=== PATIENT | female | born 1945 | race Caucasian/White ===

== ENCOUNTER → 2016-03-13 | Outpatient (CLI) | payer OTHER ==
[~2016-03-13] MED LIST: ALBUAER19 INH; BENA1TAB19 PO; BIOTCAP2 PO; CARB25TA12 PO; CHOL2000 PO; CLON0.5T PO; CRS10 PO; DICY20TA35 PO; ESCI1TAB10 PO; FRS/40 PO; INSDGIPEN SC; INSUINJ4 SQ; LAMO100T PO; LORA0.5T12 PO; MECL1TAB42 PO; MULT-513 PO; MULTTAB58 PO; NVLGI/PEN SC; POTA10TA PO; PRIM50TA29 PO; PRLSR20 PO; PRVHFAIN INH; ROSU20TA PO; SPRIN/30 INH; TIOTCAP INH; TOPI25TA55 PO; TRAM-453 PO
== END | disposition home or self-care (01) ==
LOC: C.LABPVFM 15:32
PROVIDERS: ATTEND Nurse Practitioner
DX: H93.233 Hyperacusis, bilateral (principal); R42 Dizziness and giddiness; R51 Headache

== ENCOUNTER → 2016-03-19 | Outpatient (CLI) | payer OTHER ==
--- NOTE | 2016-03-19 13:09 | DIAGNOSTIC IMAGING REPORT ---
ULTRASOUND OF THE CAROTID ARTERIES CLINICAL HISTORY: Hearing abnormality. Head pressure. COMPARISON STUDY: No priors. TECHNIQUE: Real-time, grayscale, and color Doppler sonography of the carotid arteries is performed. Images are reviewed in the transverse and longitudinal planes. FINDINGS: Blood pressure in the right arm measures 127/71 and blood pressure in the left arm measures 110/65. The carotid arteries are patent bilaterally and demonstrate antegrade flow. There is minimal echogenic shadowing atherosclerotic plaque seen bilaterally. Normal doppler arterial waveforms are seen throughout. Velocity measurements are listed below. Common carotid peak systolic velocity (cm/sec): RIGHT: 81 LEFT: 92 ICA proximal peak systolic velocity (cm/sec): RIGHT: 59 LEFT: 55 ICA mid peak systolic velocity (cm/sec): RIGHT: 90 LEFT: 95 ICA distal peak systolic velocity (cm/sec): RIGHT: 72 LEFT: 90 ICA/CC peak systolic ratio: RIGHT: 1.2 LEFT: 1.0 Antegrade flow was shown in the vertebral arteries. The external carotid arteries are patent. A 1.5 cm predominantly cystic nodule is incidentally noted in the left lobe of the thyroid gland. IMPRESSION: 1. There is no sonographic evidence of hemodynamically significant stenosis in the right or left carotid arterial system. 2. Antegrade flow is shown in the vertebral arteries. Electronically signed by: Julio C Rodriguez M.D. 03/19/2016 1:07 PM Dictated Date/Time: 03/19/2016 1:06 PM
--- NOTE | 2016-03-24 07:19 | CODING QUERY MEDICAL NECESSITY ---
SUPPORTING DIAGNOSIS NEEDED A supporting diagnosis is required for the test/procedure performed on this patient in order for us to be reimbursed by the patient's insurance. Please provide a supporting diagnosis for the following test/procedure listed below next to the test name along with your signature. *If there is no additional diagnosis for this patient that would support the following test/procedure please document that below next to the test/procedure. Test(s)/Procedure(s) that require a supporting diagnosis: DOS 03/19 * Carotid Doppler DIAGNOSIS: Provider Signature: Date: Thank you Francia [facility] Information Management Once completed, please kindly fax back to [phone] For questions please call [phone]
== END | disposition home or self-care (01) ==
LOC: C.ULTR 12:01
PROVIDERS: ATTEND Nurse Practitioner
DX: R42 Dizziness and giddiness (principal); H93.233 Hyperacusis, bilateral; R51 Headache; R25.1 Tremor, unspecified

== ENCOUNTER → 2016-07-16 | Outpatient (CLI) | payer OTHER ==
[~2016-07-16] MED LIST changes: -BENA1TAB19 PO; +BENA1TAB53 PO
[2016-07-16 17:59] LABS: BASO % 0.3 %; BASO ABS # 0.02 K/uL (0-0.2); COMPLETE YES; EOS % 3.7 %; HEMATOCRIT 42.7 % (37-47); IG% 0.1 %; LYMPH % 26.5 %; LYMPH ABS # 1.78 K/uL (1.2-3.4); MEAN CELL VOLUME 88.6 fL (80-100); MEAN CORPUSCULAR HEMOGLOBIN 29.5 pg (25-34); MEAN CORPUSCULAR HGB CONC 33.3 g/dl (32-36); MEAN PLATELET VOLUME 11.3 fL (7.4-10.4); MONO % 9.5 %; NEUT % 59.9 %; PLATELET COUNT 225 K/uL (130-400); RED BLOOD COUNT 4.82 M/uL (4.2-5.4); WHITE BLOOD COUNT 6.71 K/uL (4.8-10.8)
[2016-07-16 18:30] LABS: ALT/SGPT 41 U/L (12-78); AST/SGOT 28 U/L (15-37); BLOOD UREA NITROGEN 16 mg/dl (7-18); BUN/CREATININE RATIO 16.4 (10-20); CALCIUM 9.1 mg/dl (8.5-10.1); CARBON DIOXIDE 32 mmol/L (21-32); CHLORIDE 103 mmol/L (98-107); GLUCOSE 227 mg/dl (70-99); POTASSIUM 4.1 mmol/L (3.5-5.1); SODIUM 141 mmol/L (136-145)
[2016-07-16 18:41] LABS: ALB/GLOB RATIO 1.3 (0.9-2); ALKALINE PHOSPHATASE 97 U/L (45-117); CHOLESTEROL 217 mg/dl (0-200); CHOLESTEROL/HDL RATIO 4.7; HDL CHOLESTEROL 46 mg/dl; LDL CHOLESTEROL CALCULATED 140 mg/dl; TRIGLYCERIDES 154 mg/dl (0-150); VERY LOW DENSITY LIPOPROT CALC 31 mg/dl
[2016-07-17 06:40] LABS: ESTIMATED AVERAGE GLUCOSE 223 mg/dl; HA1C FLAG Normal (Normal)
== END | disposition home or self-care (01) ==
LOC: C.LABPVFM 11:15
PROVIDERS: ATTEND Nurse Practitioner
DX: H93.13 Tinnitus, bilateral (principal); R42 Dizziness and giddiness; R26.81 Unsteadiness on feet; E11.9 Type 2 diabetes mellitus without complications; E78.2 Mixed hyperlipidemia; E55.9 Vitamin D deficiency, unspecified

== ENCOUNTER 2016-08-18 17:02 | Emergency (ER) | payer OTHER ==
[~2016-08-18] VITALS: Ht 162.6 cm; Wt 79.2 kg
[~2016-08-18 17:02] MED LIST changes: -BENA1TAB53 PO; -CARB25TA12 PO; -CHOL2000 PO; -FRS/40 PO; -INSDGIPEN SC; -MECL1TAB42 PO; -MULTTAB58 PO; -NVLGI/PEN SC; -PRVHFAIN INH; -ROSU20TA PO; -SPRIN/30 INH
[2016-08-18 17:06] VITALS: TEMP 36.6
[2016-08-18 17:40] VITALS: O2SAT 96; Ht 162.6 cm; Wt 79.2 kg
[2016-08-18] MEDS ORDERED: MECLIZINE HCL 25 MG TAB PO STA (17:43)
[2016-08-18] MEDS ORDERED: SODIUM CHLORIDE 0.9% 500ML 500 ML IV STA (17:43)
--- NOTE | 2016-08-18 17:43 | EMERGENCY ROOM VISIT NOTE ---
History Report prepared by Marta: Livia Oliveira Under the Supervision of: Dr. Evaristo Wright M.D. First contact with patient: 17:15 Chief Complaint: DIZZY Stated Complaint: BUZZING, RINGING IN EARS History of Present Illness The patient is a 71 year old female who presents to the Emergency Room with complaints of persistent, progressively worsening dizziness over the past 2-3 weeks. The patient's family reports that the patient has a history of an essential tremor and had a deep brain stimulator placed five years ago. They note that the patient's tremors had improved for several years. The family reports that the patient's tremors have now worsened and she has noticed ringing in her ears. The patient describes her dizziness as a feeling of off balance, but not a room spinning sensation. The patient's family states that the patient has not had follow up for her stimulator in quite some time due to changes in providers. The family notes that the patient was supposed to have an appointment with Neurology today, but states that it was cancelled and rescheduled for September. They note that the patient has not taken any of her medications today. The patient denies any nausea, vomiting, or abdominal pain. Source of History: patient Onset: 2-3 weeks Position: other (global) Quality: other (dizziness) Timing: worsening (progressively), other (persistent) Associated Symptoms: No nausea, No vomiting, No abdominal pain Note: Associated Symptoms: worsened tremors, feeling off balance, ear ringing Review of Systems See HPI for pertinent positives & negatives. A total of 10 systems reviewed and were otherwise negative. Past Medical & Surgical Medical Problems: (1) COPD (chronic obstructive pulmonary disease) (2) Depression (3) Diabetes (4) GERD (gastroesophageal reflux disease) (5) Hypertension (6) IBS (irritable bowel syndrome) (7) Tremor Family History Diabetes mellitus FHx: cancer FHx: heart disease FHx: hypertension Social History Smoking Status: Former Smoker Smokeless Tobacco Use: No Alcohol Use: none Drug Use: none Marital Status: Housing Status: lives with family Occupation Status: retired Current/Historical Medications Scheduled Benazepril (Lotensin), 40 MG PO DAILY Biotin (Biotin 5000), 5,000 MCG PO BID Carbidopa/Levodopa (Sinemet 25MG/100MG), 1 TAB PO BID Cholecalciferol (Vitamin D3), 2,000 INTER.UNIT PO DAILY Furosemide (Lasix), 40 MG PO DAILY Insulin Aspart (Novolog Flexpen), 1 DOSE SC AC Insulin Glargine (Lantus Solostar), 55 UNITS SC QPM Multiple Vitamin (Multivitamin), 1 TAB PO DAILY Omeprazole (Prilosec), 20 MG PO BID Primidone (Mysoline), 50 MG PO TID Rosuvastatin Calcium (Crestor), 20 MG PO DAILY Tiotropium [place] (Spiriva Handihaler), 1 CAP INH DAILY Scheduled PRN Albuterol (Ventolin Hfa), 2 PUFFS INH Q4-6HRS PRN for SOB/Wheezing Dicyclomine Hcl (Bentyl), 20 MG PO Q6H PRN for Abdominal Pain Meclizine Hcl (Meclizine Hcl), 25 MG PO QID PRN for Dizziness or Vertigo Allergies Coded Allergies: Levetiracetam (Verified Allergy, Intermediate, Rash, 08/18/16) Naproxen (Verified Allergy, Mild, RASH, 07/06/13) Penicillins (Verified Allergy, Unknown, HAD CEPHALEXIN BEFORE AND OK, PCN= FACIAL SWELLING, 07/06/13) Sulfa Drugs (Verified Adverse Reaction, Intermediate, N/V, 07/06/13) Uncoded Allergies: MORPHINE DERIVATIVES (Allergy, Unknown, Unknown, 08/18/16) Physical Exam Vital Signs Date Time Temp Pulse Resp B/P (MAP) Pulse Ox O2 Delivery O2 Flow Rate FiO2 08/18/16 19:53 70 20 151/67 98 Room Air 08/18/16 18:59 74 20 159/76 98 Room Air 08/18/16 17:57 72 18 130/107 96 Room Air 08/18/16 17:40 96 Room Air 08/18/16 17:06 36.6 100 18 151/79 94 Room Air Physical Exam GENERAL: Patient is a healthy-appearing well-nourished female HEAD: Normocephalic atraumatic EYES: Ocular movements intact pupils equal and react to light OROPHARYNX mucous membranes are moist no exudates present no erythema or edema present NECK: Supple no nuchal rigidity CHEST: Good equal expansion LUNGS: Clear and equal to auscultation CARDIAC: Normal S1 and S2 ABDOMEN: Soft nontender no guarding BACK: No CVA tenderness EXTREMITIES: No pain upon palpation normal muscle strength in all groups no clubbing cyanosis or edema NEURO: Patient is following commands and answering questions appropriately. Alert and oriented x3 Cranial Nerves 2-12 grossly intact Medical Decision & Procedures ER Provider Diagnostic Interpretation: Radiology results as stated below per my review and radiologist interpretation: HEAD CT NONCONTRAST CT DOSE: 537.48 mGy.cm HISTORY: Mental status change Pt c/o dizziness TECHNIQUE: Multiaxial CT images of the head were performed without the use of intravenous contrast. Comparison: 06/13/2007 Findings: The paranasal sinuses and mastoid air cells are clear. Interval placement of bilateral periventricular electrodes. Density characteristics of the brain are unremarkable. No evidence for acute intracranial hemorrhage. Impression: Chronic and postoperative change. No acute process. Electronically signed by: Greg Ariza M.D. 08/18/2016 6:09 PM Dictated Date/Time: 08/18/2016 6:08 PM CHEST ONE VIEW PORTABLE CLINICAL HISTORY: Pt c/o weakness/ dizziness dyspnea COMPARISON STUDY: June 2012 FINDINGS: Bilateral bile stimulator's. Lungs are clear. Diaphragms are smooth. IMPRESSION: No acute process Electronically signed by: Greg Ariza M.D. 08/18/2016 6:20 PM Dictated Date/Time: 08/18/2016 6:20 PM Laboratory Results 08/18/16 17:40 Red Blood Count 5.03, Mean Corpuscular Volume 85.1, Mean Corpuscular Hemoglobin 28.6, Mean Corpuscular Hemoglobin Concent 33.6, Mean Platelet Volume 10.9, Neutrophils (%) (Auto) 63.3, Lymphocytes (%) (Auto) 25.4, Monocytes (%) (Auto) 8.0, Eosinophils (%) (Auto) 2.9, Basophils (%) (Auto) 0.2, Neutrophils # (Auto) 5.15, Lymphocytes # (Auto) 2.07, Monocytes # (Auto) 0.65, Eosinophils # (Auto) 0.24, Basophils # (Auto) 0.02 08/18/16 17:40 Test 08/18/16 17:40 08/18/16 17:45 08/18/16 19:44 White Blood Count 8.15 K/uL (4.8-10.8) Red Blood Count 5.03 M/uL (4.2-5.4) Hemoglobin 14.4 g/dL (12.0-16.0) Hematocrit 42.8 % (37-47) Mean Corpuscular Volume 85.1 fL (80-100) Mean Corpuscular Hemoglobin 28.6 pg (25-34) Mean Corpuscular Hemoglobin Concent 33.6 g/dl (32-36) Platelet Count 213 K/uL (130-400) Mean Platelet Volume 10.9 fL (7.4-10.4) Neutrophils (%) (Auto) 63.3 % Lymphocytes (%) (Auto) 25.4 % Monocytes (%) (Auto) 8.0 % Eosinophils (%) (Auto) 2.9 % Basophils (%) (Auto) 0.2 % Neutrophils # (Auto) 5.15 K/uL (1.4-6.5) Lymphocytes # (Auto) 2.07 K/uL (1.2-3.4) Monocytes # (Auto) 0.65 K/uL (0.11-0.59) Eosinophils # (Auto) 0.24 K/uL (0-0.5) Basophils # (Auto) 0.02 K/uL (0-0.2) RDW Standard Deviation 39.2 fL (36.4-46.3) RDW Coefficient of Variation 12.6 % (11.5-14.5) Immature Granulocyte % (Auto) 0.2 % Immature Granulocyte # (Auto) 0.02 K/uL (0.00-0.02) Anion Gap 9.0 mmol/L (3-11) Est Creatinine Clear Calc Drug Dose 46.4 ml/min Estimated GFR () 57.7 Estimated GFR (Non- 49.8 BUN/Creatinine Ratio 20.5 (10-20) Calcium Level 9.4 mg/dl (8.5-10.1) Total Bilirubin 0.3 mg/dl (0.2-1) Direct Bilirubin < 0.1 mg/dl (0-0.2) Aspartate Amino Transf (AST/SGOT) 32 U/L (15-37) Alanine Aminotransferase (ALT/SGPT) 37 U/L (12-78) Alkaline Phosphatase 104 U/L (45-117) Total Creatine Kinase 106 U/L (26-192) Creatine Kinase MB 1.1 ng/ml (0.5-3.6) Creatine Kinase MB Ratio 1.0 (0-3.0) Troponin I < 0.015 ng/ml (0-0.045) Total Protein 7.3 gm/dl (6.4-8.2) Albumin 4.0 gm/dl (3.4-5.0) Beta-Hydroxybutyric Acid 1.67 mg/dL (0.2-2.81) Thyroid Stimulating Hormone (TSH) 1.380 uIu/ml (0.300-4.500) Urine Color YELLOW Urine Appearance CLEAR (CLEAR) Urine pH 5.5 (4.5-7.5) Urine Specific [place] <= 1.005 (1.000-1.030) Urine Protein NEG (NEG) Urine Glucose (UA) 3+ (NEG) Urine Ketones NEG (NEG) Urine Occult Blood NEG (NEG) Urine Nitrite NEG (NEG) Urine Bilirubin NEG (NEG) Urine Urobilinogen NEG (NEG) Urine Leukocyte Esterase NEG (NEG) Urine RBC 0-4 /hpf (0-4) Urine WBC 1-5 /hpf (0-5) Urine Epithelial Cells 5-10 /lpf (0-5) Urine Bacteria NEG (NEG) Bedside Glucose 309 mg/dl (70-90) Labs reviewed by ED physician. Medications Administered Medications (Trade) Dose Ordered Sig/Alicia Route Start Time Stop Time Status Last Admin Dose Admin Sodium Chloride 500 ml @ 999 mls/hr Q31M STAT IV 08/18/16 17:43 08/18/16 18:13 DC 08/18/16 18:52 999 MLS/HR Meclizine HCl (Antivert Tab) 25 mg NOW STAT PO 08/18/16 17:43 08/18/16 17:46 DC 08/18/16 18:51 25 MG Insulin Human Regular (novoLIN-R U-100 PER UNIT) 10 units NOW STAT SC 08/18/16 18:32 08/18/16 18:33 DC 08/18/16 18:32 10 UNITS Potassium Chloride (Klor-Con M10) 60 meq NOW STAT PO 08/18/16 18:35 08/18/16 18:36 DC 08/18/16 18:51 60 MEQ ED Course 1716: Past medical records reviewed. The patient was evaluated in room C12B. A complete history and physical examination was performed by the medical student. 1733: Past medical records reviewed. The patient was evaluated in room C12B. A complete history and physical examination was performed. 174: Ordered Antivert Tab 25 mg PO, Sodium Chloride 500 ml @ 999 mls/hr IV. 1831: Ordered Insulin Human Regular 10 units SC 1834: Ordered Potassium Chloride 60 meq PO. 1853: The medical student reevaluated the patient and she is resting comfortably. He discussed the exam findings with the patient and her family and he discussed the treatment plan. They verbalized complete understanding. The patient will be discharged. 1899: I reevaluated the patient and she is doing well. She verbalized understanding and agreement. She will be discharged shortly. 1906: I discussed the patients case with [facility]. They will contact her in the next 1-2 days to get set up for follow up. 1909: I discussed the plan with the patient and her family and they verbalized complete understanding and agreement. The patient is ready to go home. Medical Decision Differential diagnosis: Etiologies such as metabolic, infection, hypo/hyperglycemia, electrolyte abnormalities, cardiac sources, intracerebral event, toxicologic, neurologic, as well as others were entertained. Medication Reconciliation: I attest that I have personally reviewed the patient' s current medication list Blood Pressure Screening: Patient was found to have an elevated blood pressure and was referred to their primary care doctor for recheck and further treatment This is a 71-year-old female who presents emergency department for analysis of her neural stimulator. The patient had an appointment for this however due to a miscommunication the appointment was canceled. She has a normal CBC normal CAT scan of the head a normal chest x-ray. I did discuss the case with [facility] neurologist master control supervisor to get the the patient an appointment with a neurologist to have her stimulator evaluated. Patient family were in agreement with the treatment plan. Consults Time Called: 1899 Consulting Physician: [facility] Returned Call: 1906 I discussed the patients case with [facility]. They will contact her in the next 1-2 days to get set up for follow up. Impression Primary Impression: Hyperglycemia Scribe Attestation The scribe's documentation has been prepared under my direction and personally reviewed by me in its entirety. I confirm that the note above accurately reflects all work, treatment, procedures, and medical decision making performed by me. Departure Information Dispostion Home / Self-Care Referrals Remedios Medrano C.R.N.P (PCP) Forms HOME CARE DOCUMENTATION FORM, IMPORTANT VISIT INFORMATION, School Instructions, Work Instructions Patient Instructions ED Hyperglycemia Diabetic, Hypertension Dc, My [facility] Additional Instructions Follow up with [facility] You were found to have an elevated blood pressure today (>120 sytolic or >90 diastolic). Per medicare guidelines, you need to follow up with this blood pressure screening with your Primary Care Physician (PCP). For a new PCP call [phone]. You have been examined and treated today on an emergency basis only. This is not a substitute for, or an effort to provide, complete comprehensive medical care. It is impossible to recognize and treat all injuries or illnesses in a single emergency department visit. It is therefore important that you follow up closely with Dr Medrano. Call as soon as possible for an appointment. Thank you for your time and consideration. I look forward to speaking with you again soon. Please don't hesitate to call us if you have any questions.
[2016-08-18 18:02] LABS: BASO % 0.2 %; BASO ABS # 0.02 K/uL (0-0.2); COMPLETE YES; EOS % 2.9 %; HEMATOCRIT 42.8 % (37-47); IG% 0.2 %; LYMPH % 25.4 %; LYMPH ABS # 2.07 K/uL (1.2-3.4); MEAN CELL VOLUME 85.1 fL (80-100); MEAN CORPUSCULAR HEMOGLOBIN 28.6 pg (25-34); MEAN CORPUSCULAR HGB CONC 33.6 g/dl (32-36); MEAN PLATELET VOLUME 10.9 fL (7.4-10.4); NEUT % 63.3 %; PLATELET COUNT 213 K/uL (130-400); RED BLOOD COUNT 5.03 M/uL (4.2-5.4); WHITE BLOOD COUNT 8.15 K/uL (4.8-10.8)
[2016-08-18] MEDS ORDERED: MECL1TAB42 PO (18:05)
[2016-08-18] MEDS ORDERED: ROSU20TA PO (18:05)
[2016-08-18] MEDS ORDERED: NVLGI/PEN SC (18:05)
[2016-08-18] MEDS ORDERED: INSDGIPEN SC (18:05)
--- NOTE | 2016-08-18 18:11 | DIAGNOSTIC IMAGING REPORT ---
HEAD CT NONCONTRAST CT DOSE: 537.48 mGy.cm HISTORY: Mental status change Pt c/o dizziness TECHNIQUE: Multiaxial CT images of the head were performed without the use of intravenous contrast. Comparison: 06/13/2007 Findings: The paranasal sinuses and mastoid air cells are clear. Interval placement of bilateral periventricular electrodes. Density characteristics of the brain are unremarkable. No evidence for acute intracranial hemorrhage. Impression: Chronic and postoperative change. No acute process. Electronically signed by: Greg Ariza M.D. 08/18/2016 6:09 PM Dictated Date/Time: 08/18/2016 6:08 PM
[2016-08-18] MEDS ORDERED: CHOL2000 PO (18:13)
[2016-08-18] MEDS ORDERED: PRVHFAIN INH (18:13)
[2016-08-18] MEDS ORDERED: CARB25TA12 PO (18:13)
[2016-08-18] MEDS ORDERED: DICY20TA35 PO (18:17)
[2016-08-18] MEDS ORDERED: MULTTAB58 PO (18:17)
[2016-08-18] MEDS ORDERED: SPRIN/30 INH (18:19)
[2016-08-18 18:20] LABS: ALT/SGPT 37 U/L (12-78); BLOOD UREA NITROGEN 23 mg/dl (7-18); BUN/CREATININE RATIO 20.5 (10-20); CALCIUM 9.4 mg/dl (8.5-10.1); CARBON DIOXIDE 27 mmol/L (21-32); CHLORIDE 102 mmol/L (98-107); GLUCOSE 346 mg/dl (70-99); POTASSIUM 3.4 mmol/L (3.5-5.1); SODIUM 138 mmol/L (136-145)
--- NOTE | 2016-08-18 18:21 | DIAGNOSTIC IMAGING REPORT ---
CHEST ONE VIEW PORTABLE CLINICAL HISTORY: Pt c/o weakness/ dizziness dyspnea COMPARISON STUDY: June 2012 FINDINGS: Bilateral bile stimulator's. Lungs are clear. Diaphragms are smooth. IMPRESSION: No acute process Electronically signed by: Greg Ariza M.D. 08/18/2016 6:20 PM Dictated Date/Time: 08/18/2016 6:20 PM
[2016-08-18 18:23] LABS: AST/SGOT 32 U/L (15-37)
[2016-08-18 18:31] LABS: ALKALINE PHOSPHATASE 104 U/L (45-117); BETA-HYDROXYBUTYRATE 1.67 mg/dL (0.2-2.81)
[2016-08-18] MEDS ORDERED: NovoLIN-R INSULIN PER UNIT CHARGE SC STA (18:32)
[2016-08-18] MEDS ORDERED: POTASSIUM CHLORIDE 10 MEQ TABCR PO STA (18:35)
[2016-08-18 18:59] LABS: URINE APPEARANCE CLEAR (CLEAR); URINE BILIRUBIN NEG (NEG); URINE COLOR YELLOW; URINE NITRITE NEG (NEG); URINE PH 5.5 (4.5-7.5); URINE SPECIFIC GRAVITY <= 1.005 (1.000-1.030); UROBILINOGEN NEG (NEG)
[2016-08-18 19:03] LABS: REVIEW REQ? NO
[2016-08-18 19:22] LABS: MANUAL MICROSCOPIC REQUIRED? YES
[2016-08-18 19:29] LABS: URINE BACTERIA NEG (NEG); URINE RBC 0-4 /hpf (0-4)
[2016-08-18 19:53] VITALS: BP 151/67; PULSE 70; O2SAT 98
[2016-08-18] MEDS ORDERED: BENA1TAB53 PO (22:44)
[2016-08-18] MEDS ORDERED: FRS/40 PO (22:44)
== END 2016-08-18 19:55 | disposition home or self-care (01) ==
LOC: C.EDB 17:03 → C.EDC 19:55
DX: E11.65 Type 2 diabetes mellitus with hyperglycemia (principal); J44.9 Chronic obstructive pulmonary disease, unspecified; I10 Essential (primary) hypertension; K21.9 Gastro-esophageal reflux disease without esophagitis; Z87.891 Personal history of nicotine dependence; Z83.3 Family history of diabetes mellitus; Z82.49 Family history of ischemic heart disease and other diseases of the circulatory system; Z79.4 Long term (current) use of insulin; Z79.899 Other long term (current) drug therapy

== ENCOUNTER → 2016-12-23 | Outpatient (CLI) | payer OTHER ==
[~2016-12-23] MED LIST changes: -ALBUAER19 INH; +BENA1TAB53 PO; +CARB25TA12 PO; +CHOL2000 PO; -CLON0.5T PO; -CRS10 PO; -ESCI1TAB10 PO; +FRS/40 PO; +INSDGIPEN SC; -INSUINJ4 SQ; -LAMO100T PO; -LORA0.5T12 PO; +MECL1TAB42 PO; -MULT-513 PO; +MULTTAB58 PO; +NVLGI/PEN SC; -POTA10TA PO; +PRVHFAIN INH; +ROSU20TA PO; +SPRIN/30 INH; -TIOTCAP INH; -TOPI25TA55 PO; -TRAM-453 PO
[2016-12-26 00:19] LABS: METHYLMALONIC ACID 139 NMOL/L (87-318)
== END | disposition home or self-care (01) ==
LOC: C.LABPVFM 11:35
PROVIDERS: ATTEND Psychiatry & Neurology Neurology
DX: R29.2 Abnormal reflex (principal)

== ENCOUNTER → 2017-01-21 | Outpatient (CLI) | payer OTHER ==
[2017-01-21 18:06] LABS: BLOOD UREA NITROGEN 17 mg/dl (7-18); BUN/CREATININE RATIO 17.1 (10-20); CALCIUM 9.6 mg/dl (8.5-10.1); CARBON DIOXIDE 31 mmol/L (21-32); CHLORIDE 99 mmol/L (98-107); CHOLESTEROL 138 mg/dl (0-200); CREATININE 0.97 mg/dl (0.60-1.20); GLUCOSE 218 mg/dl (70-99); POTASSIUM 3.8 mmol/L (3.5-5.1); SODIUM 137 mmol/L (136-145); TRIGLYCERIDES 112 mg/dl (0-150); VERY LOW DENSITY LIPOPROT CALC 22 mg/dl
[2017-01-21 18:11] LABS: CHOLESTEROL/HDL RATIO 2.2; HDL CHOLESTEROL 64 mg/dl; LDL CHOLESTEROL CALCULATED 52 mg/dl
[2017-01-22 06:18] LABS: ESTIMATED AVERAGE GLUCOSE 143 mg/dl; HA1C FLAG Normal (Normal)
== END | disposition home or self-care (01) ==
LOC: C.LABPVFM 14:50
PROVIDERS: ATTEND Nurse Practitioner
DX: E78.2 Mixed hyperlipidemia (principal); E11.9 Type 2 diabetes mellitus without complications

== ENCOUNTER → 2017-05-14 | Outpatient (CLI) | payer OTHER ==
[2017-05-14 17:56] LABS: BLOOD UREA NITROGEN 16 mg/dl (7-18); CALCIUM 9.3 mg/dl (8.5-10.1); CARBON DIOXIDE 29 mmol/L (21-32); CREATININE 0.94 mg/dl (0.60-1.20); GLUCOSE 181 mg/dl (70-99); SODIUM 140 mmol/L (136-145)
[2017-05-15 08:02] LABS: HEMOGLOBIN A1C 6.4 % (4.5-5.6)
== END | disposition home or self-care (01) ==
LOC: C.LABPVFM 15:02
PROVIDERS: ATTEND Nurse Practitioner
DX: Z11.59 Encounter for screening for other viral diseases (principal); E11.9 Type 2 diabetes mellitus without complications

== ENCOUNTER → 2017-06-25 | Outpatient (CLI) | payer OTHER | END | disposition home or self-care (01) | LOC: C.LABPVFM 17:18 | PROVIDERS: ATTEND Nurse Practitioner | DX: R39.9 Unspecified symptoms and signs involving the genitourinary system (principal) ==

== ENCOUNTER 2020-08-10 17:20 | Inpatient (IN) ==
[2020-08-10] MEDS ORDERED: SODIUM CHLORIDE 0.9% 1000ML 1,000 ML IV ONE (17:34)
--- NOTE | 2020-08-10 17:41 | Emergency Department Note ---
History of Present Illness General Chief complaint: Syncope (Near Syncope) Time Seen by Provider: 08/10/20 17:25 Source: patient Mode of arrival: EMS Limitations: no limitations History of Present Illness This patient is a 75-year-old female who comes in after a near syncopal episode. She was bit by a cat 3 to 4 days ago and started on metronidazole and doxycycline given that she has multiple antibiotic allergies. She developed diarrhea has had a large amount of watery diarrhea. No blood or melena no nausea or vomiting. She had a near syncopal episode when she stood up today she did not fall or hurt herself or actually pass out also when they called the ambulance she was very lightheaded when she stood up. She says her symptoms are positional. She denies any abdominal pain. No chest pain or shortness of breath. She did have the Covid vaccine. She has had no cough. No trauma or injury. No focal numbness or weakness. The cat bite has been healing well in the left arm and not been red or warm she said no systemic complaints or fever. The cat is up-to-date on its vaccines Home Medications Medication Instructions Recorded Confirmed Type biotin 5,000 mcg SUBLINGUAL QAM 07/13/18 08/10/20 History potassium 99 mg PO BID 07/13/18 08/10/20 History cholecalciferol (vitamin D3) 50 2,000 unit PO QAM tab 09/08/18 08/10/20 History mcg (2,000 unit) tablet cyanocobalamin (vitamin B-12) 1,000 mcg PO QAM tab 09/08/18 08/10/20 History 1,000 mcg tablet lancets 33 gauge #100 ea 09/08/18 08/06/20 History multivitamin 1 tab PO QAM tab 09/08/18 08/10/20 History carbidopa 25 mg-levodopa 100 mg 3 tab PO BID tab 09/15/18 08/10/20 History tablet bepotastine besilate 1.5 % eye 1 drops OPB BID 02/23/19 08/10/20 History drops pen needle, diabetic 32 gauge x #200 ea 01/23/20 08/06/20 Rx 5/32" blood sugar diagnostic #100 ea 02/06/20 08/06/20 Rx cranberry 500 mg capsule 500 mg PO BID #60 cap 02/07/20 08/10/20 Rx benazepril 40 mg tablet 40 mg PO QAM #90 tab 02/26/20 08/10/20 Rx insulin glargine 100 unit/mL (3 30 unit SUBCUT BID #15 ml 04/11/20 08/10/20 Rx mL) subcutaneous pen dicyclomine 20 mg tablet 20 mg PO BID #180 tab 07/15/20 08/10/20 Rx doxycycline hyclate 100 mg PO BID 10 Days #20 tab 08/04/20 08/10/20 Rx escitalopram oxalate 10 mg PO QAM 08/04/20 08/10/20 History fluticasone propionate 1 sprays INTRANASAL BID 08/04/20 08/10/20 History furosemide 40 mg PO QAM 08/04/20 08/10/20 History metronidazole [Flagyl] 500 mg PO TID #30 tab 08/04/20 08/10/20 Rx primidone See Rx Instructions .ROUTE .COMPLEX 08/04/20 08/10/20 History rosuvastatin 20 mg PO QPM 08/04/20 08/10/20 History omeprazole 20 mg capsule,delayed 20 mg PO BID #180 cap 08/05/20 08/10/20 Rx release Allergies Allergy/AdvReac Type Severity Reaction Status Date / Time levetiracetam Allergy Intermediate Rash Verified 08/06/20 15:28 adhesive tape Allergy Mild Rash Verified 08/06/20 15:28 naproxen Allergy Mild RASH Verified 08/06/20 15:28 ampicillin Allergy Unknown Unknown Verified 08/06/20 15:28 morphine Allergy Unknown Unknown Verified 08/06/20 15:28 Penicillins Allergy Unknown HAD Verified 08/06/20 15:28 CEPHALEXIN BEFORE AND OK, PCN=FACIAL SWELLING Sulfa (Sulfonamide AdvReac Intermediate N/V Verified 08/06/20 15:28 Antibiotics) Past Med/Surg History Medical History Sensorineural hearing loss (SNHL) of both ears Tubular adenoma of colon Urinary symptom or sign Surgical History S/P cholecystectomy S/P deep brain stimulator placement (08/20/16) S/P sinus surgery Status post tubal ligation Family History Father Cancer Mother Depression Hypertension Stroke Grandmother Breast cancer Mother Myocardial infarction Denies family history of Ovarian cancer Prostate cancer Colorectal cancer Social History Smoking Status: Never smoker Hx Alcohol Use: No Hx Substance Use: No marital status: / Current Living Situation: Alone current occupational status: retired Feels Safe at Home: Yes caffeine: Yes Dental Care, Regularly: No Physical Activity Frequency: Does not Exercise Seatbelt Use: always Sunscreen Use: No Review of Systems A total of 10 systems reviewed and were otherwise negative Physical Exam Vital Signs Vital Signs - 24 hr 08/10/20 17:32 08/10/20 17:34 08/10/20 17:38 Temperature 36.7 C Temperature Source Oral Pulse Rate - Lying Pulse Rate - Sitting Pulse Rate - Standing Pulse Rate 63 62 62 Pulse Rate from SpO2 Sensor 64 62 Pulse Rhythm Regular Pulse Strength Normal Respiratory Rate 21 20 18 Respiratory Effort / Characteristics Non-Labored Spontaneous Respiratory Depth Normal Respiratory Pattern Regular Blood Pressure - Lying Blood Pressure - Sitting Blood Pressure- Standing Blood Pressure 128/67 128/67 Blood Pressure Mean 87 87 Blood Pressure Position Sitting Pulse Oximetry 98 98 98 Oxygen Delivery Method Room Air Sepsis Recent Fever Within 48 Hours No Sepsis New/Unexplained Change in Mental Status No Sepsis Action Taken by Nursing No Action Required 08/10/20 18:00 08/10/20 18:30 08/10/20 19:00 Temperature Temperature Source Pulse Rate - Lying Pulse Rate - Sitting Pulse Rate - Standing Pulse Rate 60 61 58 L Pulse Rate from SpO2 Sensor 61 61 Pulse Rhythm Pulse Strength Respiratory Rate 20 17 18 Respiratory Effort / Characteristics Non-Labored Spontaneous Respiratory Depth Respiratory Pattern Blood Pressure - Lying Blood Pressure - Sitting Blood Pressure- Standing Blood Pressure 116/60 132/60 Blood Pressure Mean 78 84 Blood Pressure Position Pulse Oximetry 97 98 Oxygen Delivery Method Room Air Sepsis Recent Fever Within 48 Hours Sepsis New/Unexplained Change in Mental Status Sepsis Action Taken by Nursing 08/10/20 19:01 08/10/20 19:30 08/10/20 19:31 Temperature Temperature Source Pulse Rate - Lying Pulse Rate - Sitting Pulse Rate - Standing Pulse Rate 58 L 58 L 59 L Pulse Rate from SpO2 Sensor Pulse Rhythm Pulse Strength Respiratory Rate 19 15 16 Respiratory Effort / Characteristics Respiratory Depth Respiratory Pattern Blood Pressure - Lying Blood Pressure - Sitting Blood Pressure- Standing Blood Pressure 109/56 L Blood Pressure Mean 73 Blood Pressure Position Pulse Oximetry Oxygen Delivery Method Sepsis Recent Fever Within 48 Hours Sepsis New/Unexplained Change in Mental Status Sepsis Action Taken by Nursing 08/10/20 20:00 08/10/20 20:07 08/10/20 20:09 Temperature Temperature Source Pulse Rate - Lying Pulse Rate - Sitting Pulse Rate - Standing Pulse Rate 65 66 69 Pulse Rate from SpO2 Sensor Pulse Rhythm Pulse Strength Respiratory Rate 16 18 18 Respiratory Effort / Characteristics Respiratory Depth Respiratory Pattern Blood Pressure - Lying Blood Pressure - Sitting Blood Pressure- Standing Blood Pressure 127/71 129/62 132/64 Blood Pressure Mean 89 84 86 Blood Pressure Position Pulse Oximetry Oxygen Delivery Method Sepsis Recent Fever Within 48 Hours Sepsis New/Unexplained Change in Mental Status Sepsis Action Taken by Nursing 08/10/20 20:10 08/10/20 20:15 08/10/20 20:30 Temperature Temperature Source Pulse Rate - Lying 62 Pulse Rate - Sitting 64 Pulse Rate - Standing 67 Pulse Rate 65 64 Pulse Rate from SpO2 Sensor Pulse Rhythm Pulse Strength Respiratory Rate 16 17 Respiratory Effort / Characteristics Respiratory Depth Respiratory Pattern Blood Pressure - Lying 129/62 Blood Pressure - Sitting 132/64 Blood Pressure- Standing 127/95 Blood Pressure 127/95 120/62 Blood Pressure Mean 105 81 Blood Pressure Position Pulse Oximetry Oxygen Delivery Method Sepsis Recent Fever Within 48 Hours Sepsis New/Unexplained Change in Mental Status Sepsis Action Taken by Nursing 08/10/20 20:31 08/10/20 21:00 08/10/20 21:01 Temperature Temperature Source Pulse Rate - Lying Pulse Rate - Sitting Pulse Rate - Standing Pulse Rate 63 63 65 Pulse Rate from SpO2 Sensor Pulse Rhythm Pulse Strength Respiratory Rate 17 14 15 Respiratory Effort / Characteristics Respiratory Depth Respiratory Pattern Blood Pressure - Lying Blood Pressure - Sitting Blood Pressure- Standing Blood Pressure 123/55 L Blood Pressure Mean 77 Blood Pressure Position Pulse Oximetry Oxygen Delivery Method Sepsis Recent Fever Within 48 Hours Sepsis New/Unexplained Change in Mental Status Sepsis Action Taken by Nursing 08/10/20 21:38 08/10/20 22:00 08/10/20 22:01 Temperature Temperature Source Pulse Rate - Lying Pulse Rate - Sitting Pulse Rate - Standing Pulse Rate 64 60 63 Pulse Rate from SpO2 Sensor Pulse Rhythm Pulse Strength Respiratory Rate 19 16 20 Respiratory Effort / Characteristics Respiratory Depth Respiratory Pattern Blood Pressure - Lying Blood Pressure - Sitting Blood Pressure- Standing Blood Pressure 152/79 H 127/66 Blood Pressure Mean 103 86 Blood Pressure Position Pulse Oximetry Oxygen Delivery Method Sepsis Recent Fever Within 48 Hours Sepsis New/Unexplained Change in Mental Status Sepsis Action Taken by Nursing General: Well developed well nourished older female who appears in no acute distress, breathing comfortably on room air. Normal speech HEENT: Normal cephalic atraumatic. Pupils are equal round and reactive to light. Extraocular movements are intact. Oropharynx is pink with moist mucous membranes. No swelling of the mouth lips or tongue. Neck: Supple with a midline trachea. No meningeal signs or stiffness, no JVD or bruits. No Stridor. Chest: Clear to auscultation bilaterally. No wheezes or rhonchi. No increased work of breathing. Heart: Regular rate and rhythm without murmurs or gallops. Abdomen: Soft nontender, nondistended without rebound guarding or rigidity. Extremities: No cyanosis clubbing or edema. No calf tenderness or assymetry. Healing cat bite without redness or warmth in left arm. No evidence of infection Spine/Back. Non tender to palpation. No CVA tenderness Skin: Good turgor without rashes. Neurologic exam: Cranial nerves two through 12 are intact. Motor and sensation are intact and symmetrical throughout. Course Administered Medications Discontinued Medications Sodium Chloride (Nss 1000ml) 1,000 mls @ 999 mls/hr IV .Q1H1M ONE Stop: 08/10/20 18:34 Last Infusion: 08/10/20 20:04 Dose: 0 mls/hr Documented by: [id number] Admin: 08/10/20 19:03 Dose: 999 mls/hr Documented by: [id number] Sodium Chloride (Nss 1000ml) 500 mls @ 999 mls/hr IV .Q31M ONE Stop: 08/10/20 22:17 Last Admin: 08/10/20 22:04 Dose: 999 mls/hr Documented by: [id number] Medical Decision Making Differential Diagnosis Syncope, near syncope, dehydration, C. difficile, medication side effect, sepsis, cat bite, Covid Medical Records Attestation: I reviewed the patient's medical records. Home Medications Current Medication List: was personally reviewed by me Laboratory Data Attestation: I reviewed the patient's lab results. Result diagrams: 08/10/20 18:44 08/10/20 18:44 Lab Results 08/10/20 08/10/20 08/10/20 Range/Units 18:40 18:44 18:44 WBC 7.89 (4.8-10.8) K/uL RBC 4.22 (4.2-5.4) M/uL Hgb 13.1 (12.0-16.0) g/dL Hct 38.7 (37-47) % MCV 91.7 (80-100) fL MCH 31.0 (25-34) pg MCHC 33.9 (32-36) g/dL RDW Std Deviation 43.3 (36.4-46.3) fL RDW Coeff of Sunitha 13.0 (11.5-14.5) % Plt Count 201 (130-400) K/uL MPV 10.6 H (7.4-10.4) fL Immature Gran % (Auto) 0.1 % Neut % (Auto) 54.6 % Lymph % (Auto) 31.9 % Posey % (Auto) 10.8 % Eos % (Auto) 2.3 % Baso % (Auto) 0.3 % Neut # (Auto) 4.31 (1.4-6.5) K/uL Lymph # (Auto) 2.52 (1.2-3.4) K/uL Posey # (Auto) 0.85 H (0.11-0.59) K/uL Eos # (Auto) 0.18 (0-0.5) K/uL Baso # (Auto) 0.02 (0-0.2) K/uL Immature Gran # (Auto) 0.01 (0.00-0.02) K/uL PT 10.9 (9.0-12.0) Seconds INR 1.1 (0.9-1.1) APTT 25.6 (21.0-31.0) Seconds PTT Ratio 1.0 Sodium (136-145) mmol/L Potassium (3.5-5.1) mmol/L Chloride (98-107) mmol/L Carbon Dioxide (21-32) mmol/L Anion Gap (3-11) BUN (7-18) mg/dl Creatinine (0.6-1.2) mg/dl Est Cr Clr Drug Dosing Est GFR ( Amer) ml/min Est GFR (Non-Af Amer) ml/min BUN/Creatinine Ratio (10-20) Glucose (70-99) mg/dl Lactate (0.4-2.0) mmol/L Calcium (8.5-10.1) mg/dl Magnesium (1.8-2.4) mg/dl Total Bilirubin (0.2-1) mg/dl AST (15-37) U/L ALT (12-78) U/L Alkaline Phosphatase (45-117) U/L Total Protein (6.4-8.2) gm/dl Albumin (3.4-5.0) gm/dl Globulin (2.5-4.0) gm/dl Albumin/Globulin Ratio (0.9-2) Urine Color Yellow Urine Appearance Clear (Clear) Urine pH 6.0 (4.5-7.5) Ur Specific Dudley 1.013 (1.000-1.030) Urine Protein Negative (Negative) Urine Glucose (UA) Negative (Negative) Urine Ketones Negative (Negative) Urine Blood Negative (Negative) Urine Nitrite Negative (Negative) Urine Bilirubin Negative (Negative) Urine Urobilinogen Negative (Negative) Ur Leukocyte Esterase Negative (Negative) COVID-19 Eval Order SARS-CoV-2 (PCR) (Negative) 08/10/20 08/10/20 08/10/20 Range/Units 18:44 18:44 18:50 WBC (4.8-10.8) K/uL RBC (4.2-5.4) M/uL Hgb (12.0-16.0) g/dL Hct (37-47) % MCV (80-100) fL MCH (25-34) pg MCHC (32-36) g/dL RDW Std Deviation (36.4-46.3) fL RDW Coeff of Sunitha (11.5-14.5) % Plt Count (130-400) K/uL MPV (7.4-10.4) fL Immature Gran % (Auto) % Neut % (Auto) % Lymph % (Auto) % Posey % (Auto) % Eos % (Auto) % Baso % (Auto) % Neut # (Auto) (1.4-6.5) K/uL Lymph # (Auto) (1.2-3.4) K/uL Posey # (Auto) (0.11-0.59) K/uL Eos # (Auto) (0-0.5) K/uL Baso # (Auto) (0-0.2) K/uL Immature Gran # (Auto) (0.00-0.02) K/uL PT (9.0-12.0) Seconds INR (0.9-1.1) APTT (21.0-31.0) Seconds PTT Ratio Sodium 142 (136-145) mmol/L Potassium 3.7 (3.5-5.1) mmol/L Chloride 105 (98-107) mmol/L Carbon Dioxide 34 H (21-32) mmol/L Anion Gap 3.0 (3-11) BUN 16 (7-18) mg/dl Creatinine 0.81 (0.6-1.2) mg/dl Est Cr Clr Drug Dosing Not Reportable Est GFR ( Amer) 81.2 ml/min Est GFR (Non-Af Amer) 70.1 ml/min BUN/Creatinine Ratio 19.3 (10-20) Glucose 91 (70-99) mg/dl Lactate 1.0 (0.4-2.0) mmol/L Calcium 9.1 (8.5-10.1) mg/dl Magnesium 2.4 (1.8-2.4) mg/dl Total Bilirubin 0.4 (0.2-1) mg/dl AST 28 (15-37) U/L ALT 17 (12-78) U/L Alkaline Phosphatase 79 (45-117) U/L Total Protein 7.1 (6.4-8.2) gm/dl Albumin 4.2 (3.4-5.0) gm/dl Globulin 2.9 (2.5-4.0) gm/dl Albumin/Globulin Ratio 1.4 (0.9-2) Urine Color Urine Appearance (Clear) Urine pH (4.5-7.5) Ur Specific Dudley (1.000-1.030) Urine Protein (Negative) Urine Glucose (UA) (Negative) Urine Ketones (Negative) Urine Blood (Negative) Urine Nitrite (Negative) Urine Bilirubin (Negative) Urine Urobilinogen (Negative) Ur Leukocyte Esterase (Negative) COVID-19 Eval Order Covid19 at [facility] SARS-CoV-2 (PCR) (Negative) 08/10/20 Range/Units 18:50 WBC (4.8-10.8) K/uL RBC (4.2-5.4) M/uL Hgb (12.0-16.0) g/dL Hct (37-47) % MCV (80-100) fL MCH (25-34) pg MCHC (32-36) g/dL RDW Std Deviation (36.4-46.3) fL RDW Coeff of Sunitha (11.5-14.5) % Plt Count (130-400) K/uL MPV (7.4-10.4) fL Immature Gran % (Auto) % Neut % (Auto) % Lymph % (Auto) % Posey % (Auto) % Eos % (Auto) % Baso % (Auto) % Neut # (Auto) (1.4-6.5) K/uL Lymph # (Auto) (1.2-3.4) K/uL Posey # (Auto) (0.11-0.59) K/uL Eos # (Auto) (0-0.5) K/uL Baso # (Auto) (0-0.2) K/uL Immature Gran # (Auto) (0.00-0.02) K/uL PT (9.0-12.0) Seconds INR (0.9-1.1) APTT (21.0-31.0) Seconds PTT Ratio Sodium (136-145) mmol/L Potassium (3.5-5.1) mmol/L Chloride (98-107) mmol/L Carbon Dioxide (21-32) mmol/L Anion Gap (3-11) BUN (7-18) mg/dl Creatinine (0.6-1.2) mg/dl Est Cr Clr Drug Dosing Est GFR ( Amer) ml/min Est GFR (Non-Af Amer) ml/min BUN/Creatinine Ratio (10-20) Glucose (70-99) mg/dl Lactate (0.4-2.0) mmol/L Calcium (8.5-10.1) mg/dl Magnesium (1.8-2.4) mg/dl Total Bilirubin (0.2-1) mg/dl AST (15-37) U/L ALT (12-78) U/L Alkaline Phosphatase (45-117) U/L Total Protein (6.4-8.2) gm/dl Albumin (3.4-5.0) gm/dl Globulin (2.5-4.0) gm/dl Albumin/Globulin Ratio (0.9-2) Urine Color Urine Appearance (Clear) Urine pH (4.5-7.5) Ur Specific Dudley (1.000-1.030) Urine Protein (Negative) Urine Glucose (UA) (Negative) Urine Ketones (Negative) Urine Blood (Negative) Urine Nitrite (Negative) Urine Bilirubin (Negative) Urine Urobilinogen (Negative) Ur Leukocyte Esterase (Negative) COVID-19 Eval Order SARS-CoV-2 (PCR) NEGATIVE (Negative) Imaging Data Radiologist's Impression: Chest X-Ray 08/10/20 17:34 XR chest 1V portable CLINICAL HISTORY: SEPSIS COMPARISON STUDY: August 18, 2016 FINDINGS: No pneumothorax. No pleural effusion. No large infiltrates or consolidative lesions are seen. Cardiomediastinal silhouette is within normal limits in size. No significant pulmonary vascular congestion.. Osseous structures: Osteopenia and degenerative changes of the spine. Devices are again seen partially obscuring right and left lung parenchyma with wire extending superiorly. IMPRESSION: 1. No acute pulmonary process. ACT 112: Negative or not required by law. The above report was generated using voice recognition software. It may contain grammatical, syntax or spelling errors. Electronically signed by: Radha Martinez DO 08/10/2020 6:35 PM ECG Data Attestation: I personally reviewed and interpreted this ECG as follows: Indication: + weakness Rate (beats per minute): 60 Rhythm: + normal sinus and + other (Poor baseline due to brain stimulator) ECG Intervals/blocks: + Normal QRS, + Normal QT and + Normal [place] ECG [place]: + Normal ECG ST segments: + Normal ST segments ECG Findings: no PACs and no PVCs Comparison ECG Date: from (07/13/18) Change: no significant change MDM Narrative TheThis patient comes in as described above. She had a near syncopal episode. Most likely is related to the diarrhea attics that she is on. IV is established and she was hydrated with IV normal saline. A full sepsis type work-up was obtained Covid testing was also obtained. She is feeling better after receiving IV fluids and her vital signs remained stable she has no white count or fever to suggest sepsis. The cat bite is healing well and I do not think is causing her symptoms. She has no significant electrolyte or metabolic abnormalities. She has a nonfocal neurologic exam and her symptoms are only when she stands. EKG does not suggest acute coronary syndrome or arrhythmia. Troponin is not elevated. The patient says she feels better however we try to stand her up she is off balance. She does live alone and the family does not feel she is safe to go home. Talking to the family sounds like she does have some difficulty walking at baseline but it seems to be worse after having some diarrhea dehydration order additional IV fluids. I do think she needs to be observed overnight for IV fluids and further treatment and evaluation. The patient and her family are in agreement with the plan and I did consult Dr. Cool in the team to see her. He is property assessment monitor: Orders placed in EMR for continuous property assessment monitor. Upon my interpretation she was noted to be in normal sinus rhythm with a rate of 60 Impression & Plan Acute dehydration, Diarrhea, Weakness, Ambulatory dysfunction Discharge Plan Visit Data Chief Complaint: Syncope (Near Syncope) ED Provider: Omkar Cohn Discharge Problem: Acute dehydration, Diarrhea, Weakness, Ambulatory dysfunction Forms Stand Alone Forms: My [facility] Prescriptions Prescriptions: No Action (DME) pen needle, diabetic [BD Ultra-Fine Isabela Pen Needle] 32 gauge x 5/32" needle See Dose Instructions .ROUTE .MEDSUPPLY Qty: 200 RF: 3 (DME) OneTouch Ultra Blue Test Strip Strip See Dose Instructions .ROUTE .MEDSUPPLY Qty: 100 RF: 11 benazepril 40 mg tablet 40 mg PO QAM Qty: 90 RF: 3 Lantus Solostar U-100 Insulin 100 unit/mL (3 mL) insulin pen 30 unit subcut BID Qty: 15 RF: 3 dicyclomine 20 mg tablet 20 mg PO BID Qty: 180 RF: 3 omeprazole 20 mg capsule,delayed release(DR/EC) 20 mg PO BID Qty: 180 RF: 3 (DME) lancets [OneTouch Delica Lancets] 33 gauge misc See Dose Instructions .ROUTE .MEDSUPPLY Qty: 100 RF: 0 Bepreve 1.5 % drops 1 drops OPB BID RF: 0 cranberry 500 mg capsule 500 mg PO BID Qty: 60 RF: 11 potassium 99 mg Tablet 99 mg PO BID RF: 0 biotin 5,000 mcg Tablet, Sublingual 5,000 mcg sublingual QAM RF: 0 multivitamin tablet 1 tab PO QAM RF: 0 cyanocobalamin (vitamin B-12) [Vitamin B-12] 1,000 mcg tablet 1,000 mcg PO QAM RF: 0 cholecalciferol (vitamin D3) [Vitamin D3] 2,000 unit tablet 2,000 unit PO QAM RF: 0 carbidopa-levodopa 25-100 mg tablet 3 tab PO BID RF: 0 furosemide 40 mg tablet 40 mg PO QAM RF: 0 primidone 50 mg tablet See Rx Instructions .ROUTE .COMPLEX RF: 0 fluticasone propionate 50 mcg/actuation spray,suspension 1 sprays intranasal BID RF: 0 escitalopram oxalate 10 mg tablet 10 mg PO QAM RF: 0 rosuvastatin 20 mg tablet 20 mg PO QPM RF: 0 doxycycline hyclate 100 mg tablet 100 mg PO BID 10 Days Qty: 20 RF: 0 metronidazole [Flagyl] 500 mg tablet 500 mg PO TID Qty: 30 RF: 0 Discharge Problem: Diarrhea Qualifiers: Diarrhea type: unspecified type Qualified Code(s): R19.7 - Diarrhea, unspecified
--- NOTE | 2020-08-10 18:37 | XRay Report ---
XR chest 1V portable CLINICAL HISTORY: SEPSIS COMPARISON STUDY: August 18, 2016 FINDINGS: No pneumothorax. No pleural effusion. No large infiltrates or consolidative lesions are seen. Cardiomediastinal silhouette is within normal limits in size. No significant pulmonary vascular congestion.. Osseous structures: Osteopenia and degenerative changes of the spine. Devices are again seen partially obscuring right and left lung parenchyma with wire extending superio rly. IMPRESSION: 1. No acute pulmonary process. ACT 112: Negative or not required by law. The above report was generated using voice recognition software. It may contain grammatical, syntax o r spelling errors. Electronically signed by: Radha Martinez DO 08/10/2020 6:35 PM
[2020-08-10 18:56] LABS: Appearance Urine Clear (Clear); Bilirubin Urine Negative (Negative); Blood Urine Negative (Negative); Color Urine Yellow; Glucose Urine UA Negative (Negative); Ketones Urine Negative (Negative); Leukocyte Esterase Urine Negative (Negative); Nitrite Urine Negative (Negative); Protein Urine Negative (Negative); Specific Gravity Urine 1.013 (1.000-1.030); Urobilinogen Urine Negative (Negative)
[2020-08-10 19:02] LABS: Basophils # (auto) 0.02 K/uL (0-0.2); Basophils % (auto) 0.3 %; Eosinophils # (auto) 0.18 K/uL (0-0.5); Eosinophils % (auto) 2.3 %; Hematocrit (blood only) 38.7 % (37-47); Hemoglobin 13.1 g/dL (12.0-16.0); Immature Granulocytes # (auto) 0.01 K/uL (0.00-0.02); Immature Granulocytes % (auto) 0.1 %; Lymphocytes # (auto) 2.52 K/uL (1.2-3.4); Lymphocytes % (auto) 31.9 %; Mean Corpuscular Hgb Conc 33.9 g/dL (32-36); Mean Corpuscular Volume 91.7 fL (80-100); Mean Platelet Volume 10.6 fL (7.4-10.4); Monocytes # (auto) 0.85 K/uL (0.11-0.59); Monocytes % (auto) 10.8 %; Neutrophils # (auto) 4.31 K/uL (1.4-6.5); Neutrophils % (auto) 54.6 %; Platelet Count 201 K/uL (130-400); RDW Standard Deviation 43.3 fL (36.4-46.3); Red Blood Count 4.22 M/uL (4.2-5.4); White Blood Count 7.89 K/uL (4.8-10.8)
[2020-08-10 19:19] LABS: Alanine Aminotransferase 17 U/L (12-78); Albumin Level 4.2 gm/dl (3.4-5.0); Aspartate Aminotransferase 28 U/L (15-37); BUN Creatinine Ratio 19.3 (10-20); Blood Urea Nitrogen 16 mg/dl (7-18); Calcium 9.1 mg/dl (8.5-10.1); Carbon Dioxide 34 mmol/L (21-32); Chloride 105 mmol/L (98-107); Est GFR (African American) 81.2 ml/min; Est GFR (Non-African American) 70.1 ml/min; Glucose 91 mg/dl (70-99); Magnesium 2.4 mg/dl (1.8-2.4); Potassium 3.7 mmol/L (3.5-5.1); Sodium 142 mmol/L (136-145)
[2020-08-10 19:22] LABS: Albumin Globulin Ratio 1.4 (0.9-2); Alkaline Phosphatase 79 U/L (45-117); Bilirubin,Total 0.4 mg/dl (0.2-1); Globulin 2.9 gm/dl (2.5-4.0); Total Protein 7.1 gm/dl (6.4-8.2)
[2020-08-10 19:32] LABS: INR 1.1 (0.9-1.1); Partial Thromboplastin Time 25.6 Seconds (21.0-31.0); Prothrombin Time 10.9 Seconds (9.0-12.0)
[2020-08-10] MEDS ORDERED: SODIUM CHLORIDE 0.9% 1000ML 500 ML IV ONE (21:47)
[2020-08-10] MEDS ORDERED: ACETAMINOPHEN 325 MG TAB PO PRN (22:23)
[2020-08-10] MEDS ORDERED: ONDANSETRON INJ 2 MG/ML 2 ML VIAL IV PRN (22:23)
[2020-08-10] MEDS ORDERED: POLYETHYLENE (MIRALAX) 17 GM PACK PO PRN (22:23)
--- NOTE | 2020-08-10 22:50 | History & Physical Report ---
Date of Service August 10, 2020 Assessment & Plan (1) Syncope: Mrs. Johnson is a 75 yo woman who presented for evaluation after a witnessed syncopal episode earlier today. - possible etiologies include cardiac, reflex mediated, orthostasis, hypotension, medication induced, or neurologic - No seizure like activity witnessed, neurological unlikley. - Patient without history of arrhythmias, denied palpitations preceding episode, making cardiac unlikely - No clear reflex mediated cause (no emesis, defecation/urination, or cough). Vaso-vagal remains possible, although no apparent positional changes preceding episode - Medication induced is unlikely given lack of anti-anginals. She is on a low dose antidepressant along with an antihypertensive, however these medications have been chronic. - Patient was not hypotensive on arrival. - Orthostasis is a possibility given associated dizziness and relative volume depletion (diarrhea) - we will volume resuscitate patient and continue cardiac monitoring while inpatient in the event a transient arrhythmia could be captured (2) Diarrhea: - acute on chronic (hx of IBS) - etiology unknown: may be due to medication adverse effect (doxycycline + flagyl) although it is unclear why this occurred on day 6 of course. It is also possibility it is secondary to cdiff (due to recent abx use). - Cdiff and stool studies pending - WBC normal, patient afebrile - infectious sources is thought to be unlikely - follow (3) Cat bite: - etiology of left arm cellulitis - appears to be resolving on exam - WBC normal - was placed on Doxy + Flagyl after leaving ED on 08/04/20 - discontinued both of the above and started her on Cefdinir (she tolerated IV Rocephin during ED visit on 08/04). Complete antimicrobial course with cefdinir (4) Diastolic murmur: - appreciated on exam - per chart review, this is new - echo ordered (5) HTN, goal below 140/90: - continue home ALLAN and furosemide (6) Parkinsons disease: - s/p DBS - continue current home medication regimen (7) DM type 2 (diabetes mellitus, type 2): - continue home insulin regimen of glargine 30 untits BID - continue ALLAN and statin - HbA1c below goal at 5.9 on 05/02/20 - recheck hbA1c with Am labs - goal for this patient would be between 7.5 and 8 given age - I would consider reducing insulin dosing as an outpatient - carb consistent diet Diet: Carb consistent Dispo: Med/surg DVT: Lovenox Code: DNR/DNI History of Present Illness Chief Complaint: Mrs. Johnson is a 75 yo woman with a PMHx of Parkinsons Disease (s/p deep brain stimulator placement) and insulin-dependent diabetes mellitus who presented after a witnessed syncopal episode earlier today. Of note, Mrs. Johnson was seen in the [facility] ED on 08/04/20 for evaluation of a cat bite on the left arm. She was sent out with a script for Flagyl + Doxycycline (this combination was selected because patient has history of allergies to sulfa drugs and penicillins) for developing left arm cellulitis. Last night, she developing profuse watery diarrhea. She does report a history of chronic diarrhea due to IBS - but this was a marked difference from her baseline. She had to change the sheets of her bed due to the mess. There was no associated fever/chills, nausea/vomiting. This morning, when walking around her house, her daughter in law heard a thud and found her passed out in her living room. Mrs. Jhonson denies going from a sitting to a standing position - she insists she had been walking around her house before passing out. She denies striking her head. No LOC. Not on a blood thinner. Her daughter in law said she reported dizziness/lightheadedness just moments before the fall - however this is a chronic complaint from her. She denies any preceding greying of her vision or palpitations. Witness denies any seizure like activity. With regards to the left arm cellulitis - she reports marked improvement since onset with antibiotic therapy. In the ED: She was afebrile, HR normal, BP normotensive. WBC normal, Hgb normal. Electrolytes and kidney function normal. BUN not elevated. UA benign. COVID neg. Blood cultures were drawn. EKG showing NSR (interference from DBS magnets embedded in chest). CXR normal. Cdiff and stool studies were ordered. She was started on IVF. Primary Care Provider: KEILA Lopez Allergies Allergy/AdvReac Type Severity Reaction Status Date / Time levetiracetam Allergy Intermediate Rash Verified 08/06/20 15:28 adhesive tape Allergy Mild Rash Verified 08/06/20 15:28 naproxen Allergy Mild RASH Verified 08/06/20 15:28 ampicillin Allergy Unknown Unknown Verified 08/06/20 15:28 morphine Allergy Unknown Unknown Verified 08/06/20 15:28 Penicillins Allergy Unknown HAD Verified 08/06/20 15:28 CEPHALEXIN BEFORE AND OK, PCN=FACIAL SWELLING Sulfa (Sulfonamide AdvReac Intermediate N/V Verified 08/06/20 15:28 Antibiotics) Home Medications Medication Instructions Recorded Confirmed Type biotin 5,000 mcg SUBLINGUAL QAM 07/13/18 08/10/20 History potassium 99 mg PO BID 07/13/18 08/10/20 History cholecalciferol (vitamin D3) 50 2,000 unit PO QAM tab 09/08/18 08/10/20 History mcg (2,000 unit) tablet cyanocobalamin (vitamin B-12) 1,000 mcg PO QAM tab 09/08/18 08/10/20 History 1,000 mcg tablet lancets 33 gauge #100 ea 09/08/18 08/06/20 History multivitamin 1 tab PO QAM tab 09/08/18 08/10/20 History carbidopa 25 mg-levodopa 100 mg 3 tab PO BID tab 09/15/18 08/10/20 History tablet bepotastine besilate 1.5 % eye 1 drops OPB BID 02/23/19 08/10/20 History drops pen needle, diabetic 32 gauge x #200 ea 01/23/20 08/06/20 Rx 5/32" blood sugar diagnostic #100 ea 02/06/20 08/06/20 Rx cranberry 500 mg capsule 500 mg PO BID #60 cap 02/07/20 08/10/20 Rx benazepril 40 mg tablet 40 mg PO QAM #90 tab 02/26/20 08/10/20 Rx insulin glargine 100 unit/mL (3 30 unit SUBCUT BID #15 ml 04/11/20 08/10/20 Rx mL) subcutaneous pen dicyclomine 20 mg tablet 20 mg PO BID #180 tab 07/15/20 08/10/20 Rx doxycycline hyclate 100 mg PO BID 10 Days #20 tab 08/04/20 08/10/20 Rx escitalopram oxalate 10 mg PO QAM 08/04/20 08/10/20 History fluticasone propionate 1 sprays INTRANASAL BID 08/04/20 08/10/20 History furosemide 40 mg PO QAM 08/04/20 08/10/20 History metronidazole [Flagyl] 500 mg PO TID #30 tab 08/04/20 08/10/20 Rx primidone See Rx Instructions .ROUTE .COMPLEX 08/04/20 08/10/20 History rosuvastatin 20 mg PO QPM 08/04/20 08/10/20 History omeprazole 20 mg capsule,delayed 20 mg PO BID #180 cap 08/05/20 08/10/20 Rx release Past Med/Surg History Medical History Sensorineural hearing loss (SNHL) of both ears Tubular adenoma of colon Urinary symptom or sign Surgical History S/P cholecystectomy S/P deep brain stimulator placement (08/20/16) S/P sinus surgery Status post tubal ligation Family History Father Cancer Mother Depression Hypertension Stroke Grandmother Breast cancer Mother Myocardial infarction Denies family history of Ovarian cancer Prostate cancer Colorectal cancer Social History Smoking Status: Never smoker Hx Alcohol Use: No Hx Substance Use: No Preferred Language: Somali Communication Ability: Effective Sales Closer Required: No Beliefs That Will Affect Care: None marital status: / Current Living Situation: Alone current occupational status: retired Other Information That Helps Us Care for You: No Feels Safe at Home: Yes Safety Concerns: Feels Safe At This Time caffeine: Yes Dental Care, Regularly: No Physical Activity Frequency: Does not Exercise Seatbelt Use: always Sunscreen Use: No Assistive Devices: Denture - Upper and Denture - Lower Review of Systems Review of Systems: All systems reviewed & are unremarkable except as noted in HPI & below Physical Exam Constitutional: WD/WN, vitals as above cooperative; no acute distress Eyes: + anicteric sclerae ENMT: external ear and nose normal, oropharynx normal Neck: trachea midline, no thyromegaly Respiratory: normal respiratory effort, lungs clear to auscultation Cardiovascular: Rate/Rhythm: regular rate and regular rhythm Heart Sounds: normal S1, normal S2 and + murmur (diastolic) Extremities: no pedal edema Gastrointestinal (Abdomen): normal bowel sounds, soft, nontender, no hepatosplenomegaly Skin: + erythema (There is a demarcated area on L forearm, redness has receded ) Neurologic: moves all extremities Psychiatric: A+Ox3, euthymic affect Results & Data Results & Data ([facility]) Vital Signs (Past 12 Hours) Vital Signs Temp Pulse Resp BP Pulse Ox 08/10/20 22:01 63 20 127/66 08/10/20 22:00 60 16 08/10/20 21:38 64 19 152/79 H 08/10/20 21:01 65 15 08/10/20 21:00 63 14 123/55 L 08/10/20 20:31 63 17 08/10/20 20:30 64 17 120/62 08/10/20 20:10 65 16 127/95 08/10/20 20:09 69 18 132/64 08/10/20 20:07 66 18 129/62 08/10/20 20:00 65 16 127/71 08/10/20 19:31 59 L 16 08/10/20 19:30 58 L 15 109/56 L 08/10/20 19:01 58 L 19 08/10/20 19:00 58 L 18 132/60 08/10/20 18:30 61 17 98 08/10/20 18:00 60 20 116/60 97 08/10/20 17:38 62 18 98 08/10/20 17:34 36.7 C 62 20 128/67 98 08/10/20 17:32 63 21 128/67 98 Supervising Physician Co-Signing Physician Notes Attending addendum: I have physically seen this patient, have supervised the medical residents activities, and agree with the H&P unless as otherwise noted. Assessment and Plan: Syncope- Most likely secondary to dehydration caused by diarrhea, has recently been on antibiotics Orthostatic vital signs Continue IV fluid resuscitation Follow stool studies: Cultures, O&P and C. difficile Cat bite- Has been improving on doxycycline and Flagyl that she is placed on in the ED on 08/04/2020- Placed on Ceftin near as noted Hypertension- Hold furosemide for rehydration Continue benazepril with hold parameters Diabetes mellitus- Continue insulin glargine 30 units subcu twice daily Placed on Accu-Cheks before meals and at bedtime with NovoLog coverage scale Check hemoglobin A1c Parkinson's- Continue carbidopa levodopa Remaining orders and notations as noted Resident Activity Tracking Resident Involvement: Resident Care Provided Care Provided: Adult Hospital Medicine (1) Diarrhea Diarrhea type: unspecified type Qualified Code(s): R19.7 - Diarrhea, unspecified (2) Cat bite Encounter type: initial encounter Qualified Code(s): W55.01XA - Bitten by cat, initial encounter
[2020-08-11] MEDS: SODIUM CHLORIDE 0.9% 1000ML 1,000 ML IV SCH ×3 (00:47→17:55)
[2020-08-11] MEDS ORDERED: GLUCOSE 10 TABS/TUBE PO PRN (01:00)
[2020-08-11] MEDS ORDERED: GLUCAGON FOR INJ 1 MG VIAL IM PRN (01:00)
[2020-08-11] MEDS ORDERED: CARBOHYDRATES FOR HYPOGLYCEMIA PO PRN (01:00)
[2020-08-11] MEDS ORDERED: GLUCOSE 40% GEL 15 GM TUBE PO PRN (01:00)
[2020-08-11] MEDS ORDERED: DEXTROSE 50% 50 ML SYRINGE IV PRN (01:00)
[2020-08-11] MEDS: INSULIN GLARGINE SOLOSTAR 100 UNITS/ML 3 ML PEN SQ SCH ×2 (01:23→09:25)
[2020-08-11 08:06] LABS: BUN Creatinine Ratio 22.4 (10-20); Calcium 8.5 mg/dl (8.5-10.1); Creatinine Clr Calc Pharmacy 76.2 ml/min; Est GFR (African American) 101.9 ml/min; Est GFR (Non-African American) 87.9 ml/min; Potassium 3.2 mmol/L (3.5-5.1)
[2020-08-11] MEDS ORDERED: NON-FORMULARY MEDICATION (Biotin 5,000 mcg Tablet, Sublingual) SL SCH (09:00)
[2020-08-11] MEDS ORDERED: FUROSEMIDE 40 MG TAB PO SCH (09:00)
[2020-08-11] MEDS ORDERED: ENALAPRIL MALEATE 10 MG TAB PO SCH (09:00)
[2020-08-11] MEDS: PRIMIDONE 50 MG TAB PO SCH ×2 (09:23→20:56)
[2020-08-11] MEDS: CHOLECALCIFEROL 1,000 UNITS 25 MCG TAB PO SCH (09:23)
[2020-08-11] MEDS: CEFDINIR 300 MG CAP PO SCH ×2 (09:23→20:53)
[2020-08-11] MEDS: POTASSIUM CHLORIDE 10 MEQ TABCR PO SCH ×2 (09:24→20:55)
[2020-08-11] MEDS: CYANOCOBALAMIN 500 MCG TABLET (VITAMIN B-12) PO SCH (09:24)
[2020-08-11] MEDS: CARBIDOPA/LEVODOPA 25/100MG TAB PO SCH ×2 (09:24→20:53)
[2020-08-11] MEDS: DICYCLOMINE HCL 20 MG TAB PO SCH ×2 (09:24→20:54)
[2020-08-11] MEDS: PANTOprazole 40 MG TAB PO SCH ×2 (09:24→20:55)
[2020-08-11] MEDS: ENOXAPARIN INJ 40 MG/0.4 ML SYR SQ SCH (09:24)
[2020-08-11] MEDS: ESCITALOPRAM OXALATE 10 MG TAB PO SCH (09:24)
--- NOTE | 2020-08-11 10:58 | XCELERA ---
[id number]
--- NOTE | 2020-08-11 13:05 | Electrocardiogram Report ---
Test Reason : Blood Pressure : / mmHG Vent. Rate : 060 BPM Atrial Rate : 060 BPM P-R Int : 120 ms QRS Dur : 106 ms QT Int : 468 ms P-R-T Axes : 046 009 047 degrees QTc Int : 468 ms Poor data quality, interpretation may be adversely affected Normal sinus rhythm Nonspecific ST and T wave abnormality Abnormal ECG When compared with ECG of 13-JUL-2018 13:26, No significant change was found Confirmed by Chaparro Esteban ([id number]) on 08/11/2020 1:05:23 PM Referred By: REFERRED SELF Confirmed By:Kevin Esteban
[2020-08-11] MEDS ORDERED: HYDROCORTISONE HC 2.5% CRM 30GM TUBE EXT PRN (14:39)
--- NOTE | 2020-08-11 15:26 | Hospitalist Progress Note ---
Date of Service August 11, 2020 Assessment & Plan (1) Syncope: 75yo female with DM2, cellulitis 2/2 recent cat bite presents for evaluation following witnessed syncope on 08/10. Patient also with diarrhea on admission. Syncope, dizziness Possibly orthostasis 2/2 recent diarrhea, volume depletion Hypoglycemia could be contributing factor; glargine adjusted as below EKG (08/10) in normal sinus rhythm with DBS artifact, echo (08/11) unremarkable; etiology unlikely cardiogenic, though rhythm monitor may be revealing PT/OT ordered Diarrhea C. diff negative, other stool studiies pending Patient afebrile and without leukocytosis - infectious source unlikely, trend CBC Improved over course of day on 08/11, continue to follow Metamucil ordered Hypokalemia K of 3.2 (08/11), repleting orally Trend daily BMP Cellulitis secondary to cat bite Patient reports rash continues to improve; patient without leukocytosis Patient had been taking doxycycline and flagyl since ED visit (08/04); discontinued on admission, replaced with cefdinir Continue cefdinir New heart murmur Echo (08/11): normal LV function, normal RV pressure, moderate mitral annular calcification Likely clinically insignificant HTN Continue home ACEI, lasix Parkinson's disease, history of deep brain stimulator placement Continue home regimen DM2 Given patient's episode of hypoglycemia to 39 (08/11 in AM), will reduce patient's home glargine from 30u bid to 15u bid HbA1c 5.9% (05/02), repeat level pending, goal A1c between 7.5-8.0% given age Continue DM2 diet, continue ACEI, continue statin FEN: DM2 Code status: DNR/DNI DVT ppx: lovenox Dispo: med/surg tele (2) Diarrhea: (3) Cat bite: (4) Diastolic murmur: (5) HTN, goal below 140/90: (6) Parkinsons disease: (7) DM type 2 (diabetes mellitus, type 2): Admission and Anticipated Discharge Date Admission Date: August 10, 2020 Subjective Patient seen and evaluated at bedside this morning. Per reports, patient had a critical low glucose of 39 early this AM which improved with juice and breakfast. Patient reports feeling well today. Does endorse some lightheadedness and unsteadiness with ambulation when she stood up to walk to the bathroom today. No vision change, vertigo, LOC, fall. Patient feels well otherwise and denies CP, SOB, nausea, vomiting. Patient reports diarrhea improving today. No new concerns voiced. 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) Vital Signs (Past 12 Hours) Vital Signs Temp Pulse Pulse Resp BP Pulse Ox Pulse Ox 08/11/20 11:12 36.9 C 72 18 150/75 H 97 08/11/20 10:16 97 08/11/20 07:03 59 L (1) Diarrhea Diarrhea type: unspecified type Qualified Code(s): R19.7 - Diarrhea, unspecified (2) Cat bite Encounter type: initial encounter Qualified Code(s): W55.01XA - Bitten by cat, initial encounter
[2020-08-11] MEDS ORDERED: POTASSIUM CHLORIDE CRTAB 20 MEQ TABCR PO STA (15:33)
--- NOTE | 2020-08-11 16:47 | Hospitalist Progress Note ---
Date of Service August 11, 2020 Assessment & Plan (1) Syncope: 75yo female with DM2, cellulitis 2/2 recent cat bite presents for evaluation following witnessed syncope on 08/10. Patient also with diarrhea on admission. Syncope, dizziness Possibly orthostasis 2/2 recent diarrhea, volume depletion Hypoglycemia could be contributing factor; glargine adjusted as below EKG (08/10) in normal sinus rhythm with DBS artifact, echo (08/11) unremarkable; etiology unlikely cardiogenic, though rhythm monitor may be revealing PT/OT ordered Diarrhea C. diff negative, other stool studiies pending Patient afebrile and without leukocytosis - infectious source unlikely, trend CBC Improved over course of day on 08/11, continue to follow Metamucil ordered Hypokalemia K of 3.2 (08/11), repleting orally Trend daily BMP Cellulitis secondary to cat bite Patient reports rash continues to improve; patient without leukocytosis Patient had been taking doxycycline and flagyl since ED visit (08/04); discontinued on admission, replaced with cefdinir Continue cefdinir New heart murmur Echo (08/11): normal LV function, normal RV pressure, moderate mitral annular calcification Likely clinically insignificant HTN Continue home ACEI, lasix Parkinson's disease, history of deep brain stimulator placement Continue home regimen DM2 Given patient's episode of hypoglycemia to 39 (08/11 in AM), will reduce patient's home glargine from 30u bid to 15u bid HbA1c 5.9% (05/02), repeat level pending, goal A1c between 7.5-8.0% given age Continue DM2 diet, continue ACEI, continue statin FEN: DM2 Code status: DNR/DNI DVT ppx: lovenox Dispo: med/surg tele Admission and Anticipated Discharge Date Admission Date: August 10, 2020 Supervising Physician Co-Signing Physician Notes Patient seen and examined independently of PGY 1 Dr. Eldridge. Agree with history, exam findings, assessment and plan of care as outlined. In brief, Nadia is a 75-year-old female with history of Parkinson's with a deep brain stimulator, insulin-dependent diabetes admitted following an episode of syncope. Today, she reports that she was a bit dizzy when she got up to use the restroom. She continues to have loose, watery stool--[place] 6. She also reports that with the increase in loose stool she is experiencing irritation of a hemorrhoid. She is noticing small amounts of bright red blood on the toilet paper. Denies any blood mixed in with the stool. Denies any large amounts of blood in the toilet bowl. Vital signs and nursing notes reviewed. Well-appearing. Nontoxic-appearing. Heart with regular rate and rhythm. No murmur appreciated today. Lungs are clear to auscultation throughout. No wheezing, rhonchi or rales. Abdomen with decreased bowel sounds. She is nontender throughout. Labs and imaging reviewed. Potassium 3.2. This morning had a fasting glucose of 39. A1c is pending. C. difficile is negative. Stool is negative for white blood cells. Cultures are pending. Chest x-ray is unremarkable. 1. Syncopal episode. Likely secondary to orthostasis given recent watery stool. Potentially also secondary to hypoglycemia. She had significant hypoglycemia this morning. Continue with IV fluids. Transthoracic echo: Ej ection fraction is 60 to 65%. There is moderate mitral annular calcification. 2. Diarrhea. Acute on chronic. She does have a history of IBS. It is unlikely that this is from an infectious source given the negative C. difficile and lack of white blood cells. Cultures are pending. We will start Metamucil to help to bulk up the stool. 3. Irritated hemorrhoid. Start Anusol topical. 4. Hypoglycemia in the setting of insulin-dependent diabetes. Given her age, her A1c goal should be closer to 7.5 or 8 to avoid hypoglycemia overnight. Decrease glargine from 30U BID to 15u BID. A1c is pending. 5. Recent cat bite on the left arm. Improving. Previously on doxycycline and Flagyl. This was replaced with cefdinir. Other chronic issues are stable and home medications are being continued. Disposition: Pending clinical improvement. Subjective Patient seen and evaluated at bedside this morning. Per reports, patient had a critical low glucose of 39 early this AM which improved with juice and breakfast. Patient reports feeling well today. Does endorse some lightheadedness and unsteadiness with ambulation when she stood up to walk to the bathroom today. No vision change, vertigo, LOC, fall. Patient feels well otherwise and denies CP, SOB, nausea, vomiting. Patient reports diarrhea improving today. No new concerns voiced. 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
[2020-08-11] MEDS: ROSUVASTATIN CALCIUM 20 MG TAB PO SCH (20:56)
[2020-08-11] MEDS ORDERED: INSULIN GLARGINE SOLOSTAR 100 UNITS/ML 3 ML PEN SQ SCH (21:00)
[2020-08-12] MEDS: SODIUM CHLORIDE 0.9% 1000ML 1,000 ML IV SCH ×3 (02:58→19:50)
--- NOTE | 2020-08-12 05:27 | Billing Data ---
Date of Service August 12, 2020 Coding Level of Care Code 18715 OBS Care - Level 3
[2020-08-12 06:37] LABS: Estimated Average Glucose 111 mg/dl; Hemoglobin A1C 5.5 % (4.5-5.6)
[2020-08-12 07:46] LABS: Basophils # (auto) 0.02 K/uL (0-0.2); Basophils % (auto) 0.4 %; Eosinophils % (auto) 2.2 %; Hematocrit (blood only) 31.7 % (37-47); Hemoglobin 10.6 g/dL (12.0-16.0); Lymphocytes # (auto) 1.53 K/uL (1.2-3.4); Lymphocytes % (auto) 33.1 %; Mean Corpuscular Hemoglobin 31.1 pg (25-34); Mean Corpuscular Hgb Conc 33.4 g/dL (32-36); Mean Platelet Volume 10.5 fL (7.4-10.4); Monocytes # (auto) 0.42 K/uL (0.11-0.59); Monocytes % (auto) 9.1 %; Neutrophils # (auto) 2.55 K/uL (1.4-6.5); Neutrophils % (auto) 55.2 %; Platelet Count 148 K/uL (130-400); RDW Standard Deviation 43.5 fL (36.4-46.3); Red Blood Count 3.41 M/uL (4.2-5.4); White Blood Count 4.62 K/uL (4.8-10.8)
[2020-08-12] MEDS: CHOLECALCIFEROL 1,000 UNITS 25 MCG TAB PO SCH (08:14)
[2020-08-12] MEDS: CEFDINIR 300 MG CAP PO SCH ×2 (08:14→21:25)
[2020-08-12] MEDS: PRIMIDONE 50 MG TAB PO SCH ×2 (08:15→21:27)
[2020-08-12] MEDS: ESCITALOPRAM OXALATE 10 MG TAB PO SCH (08:15)
[2020-08-12] MEDS: CYANOCOBALAMIN 500 MCG TABLET (VITAMIN B-12) PO SCH (08:16)
[2020-08-12] MEDS: CARBIDOPA/LEVODOPA 25/100MG TAB PO SCH ×2 (08:16→21:24)
[2020-08-12] MEDS: DICYCLOMINE HCL 20 MG TAB PO SCH ×2 (08:17→21:25)
[2020-08-12] MEDS: PANTOprazole 40 MG TAB PO SCH ×2 (08:17→21:26)
[2020-08-12] MEDS: POTASSIUM CHLORIDE 10 MEQ TABCR PO SCH ×2 (08:17→21:26)
[2020-08-12] MEDS: ENOXAPARIN INJ 40 MG/0.4 ML SYR SQ SCH (08:17)
[2020-08-12] MEDS: PSYLLIUM 58.6% POWDER PACKET PO SCH (08:18)
[2020-08-12] MEDS: ENALAPRIL MALEATE 10 MG TAB PO SCH (08:19)
[2020-08-12 08:27] LABS: BUN Creatinine Ratio 16.8 (10-20); Calcium 8.4 mg/dl (8.5-10.1); Creatinine Clr Calc Pharmacy 68.2 ml/min; Est GFR (African American) 97.8 ml/min; Est GFR (Non-African American) 84.4 ml/min; Potassium 3.9 mmol/L (3.5-5.1)
[2020-08-12] MEDS ORDERED: INSULIN GLARGINE SOLOSTAR 100 UNITS/ML 3 ML PEN SQ SCH ×2 (09:00)
--- NOTE | 2020-08-12 17:28 | Hospitalist Progress Note ---
Date of Service August 12, 2020 Assessment & Plan (1) Syncope: 75yo female with DM2, cellulitis 2/2 recent cat bite presents for evaluation following witnessed syncope on 08/10. Patient also with diarrhea on admission. Syncope, dizziness - Suspect multifactorial secondary to orthostasis and hypoglycemia - EKG (08/10) in normal sinus rhythm with DBS artifact, echo (08/11) unremarkable; etiology unlikely cardiogenic, though rhythm monitor may be revealing - Patient w/ hypoglycemic episode overnight w/ associated witnessed syncopal episode; improved w/ carbs; DM regimen adjusted as noted below - PT/OT ordered Diarrhea - C. diff negative, other stool studies pending - Patient afebrile and without leukocytosis - infectious source unlikely, trend CBC - Improved over course of day on 08/11, continue to follow - Metamucil ordered Hypokalemia, resolved - K of 3.2 yesterday (08/11), repleting orally, K improved to 3.9 today - Trend daily BMP Cellulitis secondary to cat bite - Patient reports rash continues to improve; patient without leukocytosis - Patient had been taking doxycycline and flagyl since ED visit (08/04); discontinued on admission, replaced with cefdinir - Continue cefdinir New heart murmur - Echo (08/11): normal LV function, normal RV pressure, moderate mitral annular calcification - Likely clinically insignificant HTN - Continue home ACEI - Discontinued lasix today due to orthostatic component and no hx of CHF Parkinson's disease, history of deep brain stimulator placement - Continue home regimen DM2 - Given patient's episode of hypoglycemia to 39 (08/11 in AM), home glargine has been decreased from 30u bid to 10u daily - HgbA1c 5.9% (05/02), repeat level today is 5.5% - Family is very concerned about patient's poor dietary choices and sugar intake w/ "high sugars" in the 200s - Explained to family that given her A1c today, patient is likely having many periods of lows that can precipitate these feelings of lightheadedness/dizziness - Goal A1c between 7.5-8.0% given age - Will plan to maintain basal insulin at 10u daily and add in oral agent such as metformin - Continue DM2 diet FEN: DM2 Code status: DNR/DNI DVT ppx: lovenox Dispo: med/surg tele Admission and Anticipated Discharge Date Admission Date: August 10, 2020 Supervising Physician Co-Signing Physician Notes Feeling okay now. Mostly wants to go home. Seems to have no interest in changing her diet. Daughter present at the bedside, resident physicians and myself updated patient and family to the best of our ability. Vitals noted, in general she is awake and alert somewhat slow of speechbut this appears to be chronic. No distress. HEENT normocephalic atraumatic mucous membranes moist. Breathing unlabored no accessory muscle use good effort. Skin shows no rashes no pallor or icterus. Syncopecertainly has good evidence of hypoglycemia, given that it happened last night, hypotension/orthostasis also quite possible. In discussions with patient and daughter, it is not entirely clear why she is on an insulin only regimen, she does not recall having GI upset with any medications, nor does she recall being on a once a week injectable type of medicinein that respect, we will give trial to Metformin, and if she has GI distress without, probably switch to a GLP. At any rate with her A1c of 5.5, in spite of her shockingly bad diet, makes it fairly easily move away from insulin to something that would be less likely to induce hypoglycemia. As it relates to her blood pressure, she was running a bit on the low side while here, and given that she carries no history of CHF/pulmonary edema/etc., we will stop her Lasix. I have reduced her ALLAN inhibitor to allow a little more margin of error in her blood pressure as well. Hopefully home tomorrow. Subjective Patient seen and evaluated at bedside this morning. Per event staff member, patient did have a hypoglycemic episode early this AM (around 0400) with a BG level in the 40s. She recovered well w/ carbs. Patient does complain of persistent lightheadedness and dizziness, especially w/ ambulation/exertion. States that she is eating well and sleeping well. Patient denies CP, SOB, abd pain, n/v. Review of Systems Review of Systems: See HPI Physical Exam Physical Exam: GENERAL: No acute distress. Well developed and well nourished. Vital signs reviewed as above. EYES: PERRLA. Horizontal nystagmus bilaterally. Anicteric sclerae. HENT: Moist mucous membranes. RESPIRATORY: Clear to auscultation bilaterally. No wheezing, rales, or rhonchi. CARDIOVASCULAR: Regular rate and rhythm. No murmurs. ABDOMEN: Soft, non-tender and non-distended. No palpable masses. Normal bowel sounds. EXTREMITIES: No edema. Non-tender. SKIN: Warm, dry. NEUROLOGIC: A/O x3. No focal neurological deficits. CN II-XII grossly intact. Normal sensation throughout BUE and BLE. 4/5 bilateral director surface transportation strength. PSYCHIATRIC: Cooperative. Appropriate mood and affect. Results & Data Results & Data ([facility]) Vital Signs (Past 12 Hours) Vital Signs Temp Pulse Pulse Resp BP Pulse Ox 08/12/20 16:00 72 08/12/20 15:30 36.5 C 67 16 135/73 98 08/12/20 11:52 36.6 C 66 16 114/71 97 08/12/20 08:00 64 08/12/20 06:49 36.3 C L 60 18 98/63 L 98 Resident Activity Tracking Resident Involvement: Resident Care Provided Care Provided: Adult Hospital Medicine
--- NOTE | 2020-08-12 17:42 | Billing Data ---
Date of Service August 12, 2020 Coding Level of Care Code 20819 Subseq Hosp Care Lvl 3
[2020-08-12] MEDS: ROSUVASTATIN CALCIUM 20 MG TAB PO SCH (21:27)
[2020-08-13] MEDS: SODIUM CHLORIDE 0.9% 1000ML 1,000 ML IV SCH (05:14)
[2020-08-13 07:57] LABS: Basophils # (auto) 0.02 K/uL (0-0.2); Basophils % (auto) 0.4 %; Eosinophils # (auto) 0.18 K/uL (0-0.5); Eosinophils % (auto) 3.5 %; Hematocrit (blood only) 33.3 % (37-47); Lymphocytes # (auto) 1.86 K/uL (1.2-3.4); Lymphocytes % (auto) 36.3 %; Mean Corpuscular Hemoglobin 30.5 pg (25-34); Mean Corpuscular Volume 92.2 fL (80-100); Mean Platelet Volume 10.4 fL (7.4-10.4); Monocytes % (auto) 7.8 %; Neutrophils # (auto) 2.66 K/uL (1.4-6.5); Platelet Count 141 K/uL (130-400); RDW Standard Deviation 43.8 fL (36.4-46.3); Red Blood Count 3.61 M/uL (4.2-5.4); White Blood Count 5.12 K/uL (4.8-10.8)
[2020-08-13] MEDS ORDERED: metFORMIN HCL 500 MG TAB PO SCH (08:00)
[2020-08-13 08:25] LABS: BUN Creatinine Ratio 15.1 (10-20); Calcium 8.3 mg/dl (8.5-10.1); Est GFR (African American) 100.8 ml/min
[2020-08-13] MEDS: ESCITALOPRAM OXALATE 10 MG TAB PO SCH (08:44)
[2020-08-13] MEDS: ENALAPRIL MALEATE 10 MG TAB PO SCH (08:46)
[2020-08-13] MEDS: CHOLECALCIFEROL 1,000 UNITS 25 MCG TAB PO SCH (08:47)
[2020-08-13] MEDS: CYANOCOBALAMIN 500 MCG TABLET (VITAMIN B-12) PO SCH (08:48)
[2020-08-13] MEDS: POTASSIUM CHLORIDE 10 MEQ TABCR PO SCH (08:48)
[2020-08-13] MEDS: PANTOprazole 40 MG TAB PO SCH (08:48)
[2020-08-13] MEDS: CARBIDOPA/LEVODOPA 25/100MG TAB PO SCH (08:48)
[2020-08-13] MEDS: CEFDINIR 300 MG CAP PO SCH (08:48)
[2020-08-13] MEDS: DICYCLOMINE HCL 20 MG TAB PO SCH (08:48)
[2020-08-13] MEDS: PSYLLIUM 58.6% POWDER PACKET PO SCH (08:49)
[2020-08-13] MEDS: ENOXAPARIN INJ 40 MG/0.4 ML SYR SQ SCH (08:49)
[2020-08-13] MEDS: PRIMIDONE 50 MG TAB PO SCH (08:49)
--- NOTE | 2020-08-13 11:00 | Discharge Summary ---
Date of Service August 13, 2020 Admission HPI Per Admitting Provider Chief Complaint: Mrs. Johnson is a 75 yo woman with a PMHx of Parkinsons Disease (s/p deep brain stimulator placement) and insulin-dependent diabetes mellitus who presented after a witnessed syncopal episode earlier today. Of note, Mrs. Johnson was seen in the [facility] ED on 08/04/20 for evaluation of a cat bite on the left arm. She was sent out with a script for Flagyl + Doxycycline (this combination was selected because patient has history of allergies to sulfa drugs and penicillins) for developing left arm cellulitis. Last night, she developing profuse watery diarrhea. She does report a history of chronic diarrhea due to IBS - but this was a marked difference from her baseline. She had to change the sheets of her bed due to the mess. There was no associated fever/chills, nausea/vomiting. This morning, when walking around her house, her daughter in law heard a thud and found her passed out in her living room. Mrs. Johnson denies going from a sitting to a standing position - she insists she had been walking around her house before passing out. She denies striking her head. No LOC. Not on a blood thinner. Her daughter in law said she reported dizziness/lightheadedness just moments before the fall - however this is a chronic complaint from her. She denies any preceding greying of her vision or palpitations. Witness denies any seizure like activity. With regards to the left arm cellulitis - she reports marked improvement since onset with antibiotic therapy. In the ED: She was afebrile, HR normal, BP normotensive. WBC normal, Hgb normal. Electrolytes and kidney function normal. BUN not elevated. UA benign. COVID neg. Blood cultures were drawn. EKG showing NSR (interference from DBS magnets embedded in chest). CXR normal. Cdiff and stool studies were ordered. She was started on IVF. Primary Care Provider: KEILA Lopez Admission Exam Per Admitting Provider Constitutional: WD/WN, vitals as above cooperative; no acute distress Eyes: + anicteric sclerae ENMT: external ear and nose normal, oropharynx normal Neck: trachea midline, no thyromegaly Respiratory: normal respiratory effort, lungs clear to auscultation Cardiovascular: Rate/Rhythm: regular rate and regular rhythm Heart Sounds: normal S1, normal S2 and + murmur (diastolic) Extremities: no pedal edema Gastrointestinal (Abdomen): normal bowel sounds, soft, nontender, no hepatosplenomegaly Skin: + erythema (There is a demarcated area on L forearm, redness has receded ) Neurologic: moves all extremities Psychiatric: A+Ox3, euthymic affect Principal Diagnosis syncope Discharge Exam GENERAL: No acute distress. Well developed and well nourished. Vital signs reviewed as above. EYES: EOMI. Anicteric sclerae. HENT: Moist mucous membranes. RESPIRATORY: Clear to auscultation bilaterally. No wheezing, rales, or rhonchi. CARDIOVASCULAR: Regular rate and rhythm. ABDOMEN: Soft, non-tender and non-distended. Normal bowel sounds. EXTREMITIES: No edema. Non-tender. SKIN: Warm, dry. NEUROLOGIC: No focal neurological deficits. PSYCHIATRIC: Cooperative. Appropriate mood and affect. Discharge Data Allergies Allergy/AdvReac Type Severity Reaction Status Date / Time levetiracetam Allergy Intermediate Rash Verified 08/06/20 15:28 adhesive tape Allergy Mild Rash Verified 08/06/20 15:28 naproxen Allergy Mild RASH Verified 08/06/20 15:28 ampicillin Allergy Unknown Unknown Verified 08/06/20 15:28 morphine Allergy Unknown Unknown Verified 08/06/20 15:28 Penicillins Allergy Unknown HAD Verified 08/06/20 15:28 CEPHALEXIN BEFORE AND OK, PCN=FACIAL SWELLING Sulfa (Sulfonamide AdvReac Intermediate N/V Verified 08/06/20 15:28 Antibiotics) Consultations 08/10/20 22:19 ED Decision to Admit Stat Hospital Course (1) Syncope: 75yo female with DM2, cellulitis 2/2 recent cat bite presents for evaluation following witnessed syncope on 08/10. Patient also with diarrhea on admission. Syncope, dizziness - Suspect multifactorial secondary to orthostasis and hypoglycemia - EKG (08/10) in normal sinus rhythm with DBS artifact, echo (08/11) unremarkable - Patient w/ hypoglycemic episode overnight w/ associated witnessed syncopal episode; improved w/ carbs; DM regimen adjusted as noted below Diarrhea - C. diff negative, other stool studies pending - Patient afebrile and without leukocytosis - infectious source unlikely, trend CBC - Improved over course of day on 08/11 Hypokalemia, resolved - Resolved after oral repletion Cellulitis secondary to cat bite - Patient reports rash continues to improve; patient without leukocytosis - Patient had been taking doxycycline and flagyl since ED visit (08/04); questionable compliance after discussion with patient; on admission, replaced with cefdinir - Continue cefdinir for a total of 10 days (7 days after discharge) New heart murmur - Echo (08/11): normal LV function, normal RV pressure, moderate mitral annular calcification - Likely clinically insignificant HTN - Continue home ACEI but note that the ALLAN-inhibitor was decreased by 50% -- patient to continue enalapril 20mg po qAM - Discontinued lasix due to orthostatic component and no hx of CHF - Outpatient f/u for BP monitoring and further management Parkinson's disease, history of deep brain stimulator placement - Continue home regimen DM2 - Given patient's episode of hypoglycemia to 39 (08/11 in AM), home glargine has been decreased from 30u bid to 10u daily - HgbA1c 5.9% (05/02), repeat level during admission is 5.5% - Family is very concerned about patient's poor dietary choices and sugar intake w/ "high sugars" in the 200s - Explained to family that given her A1c, patient is likely having many periods of lows that can precipitate these feelings of lightheadedness/dizziness - Goal A1c between 7.5-8.0% given age - Discontinued insulin regimen. Started patient on Metformin 500mg po BID. - Continue DM2 diet - Recommend close outpatient f/u with fasting BG levels and repeat A1c in 3 months Total Time Total Time Spent Total Time Spent (In Minutes): <30 Discharge Plan Discharge Items Patient Disposition: Home - Self-Care Reason For Visit: SYNCOPAL EPISODE Discharge Diagnosis: syncope Activity: Resume your previous activity Non-emergency contact: Primary Care Provider Call non-emergency contact if: you have any medication questions Follow-up/Referrals: Remedios Medrano CRNP [Primary Care Provider] - 08/15/20 11:00 am (If you have any questions or need to change this appointment, please call [phone].) Diet: Carb Consistent or DM2 Addtl Attending Provider Instructions: You were admitted with concerns of lightheadedness, dizziness, and periods of passing out. It was determined that these symptoms were likely multifactorial and associated with both hypoglycemia (periods of low blood sugar) and hypotension (periods of low blood pressure). Your medication regimen was adjusted. A full list of your medications are attached with these instructions. Big medication changes are noted below: 1. Your insulin has been STOPPED! 2. You have been started on an oral medication for you diabetes called metformin -- you should take the METFORMIN 500mg BY MOUTH TWICE A DAY. 3. Your blood pressure medication, enalapril, has been decreased from 40 mg to 20mg. Continue to take ENALAPRIL 20MG BY MOUTH EVERY MORNING. 4. Your other blood pressure medication, lasix (furosemide) has been STOPPED. As we discussed, it is important that you eat well balanced meals. It is okay to eat sweets, but you should also continue eating well rounded meals (such as the meals provided to you with [employer] Whe[employer]. Additionally, you can ask your family doctor to speak with a family living educator. It is very important that you follow up with your family doctor in 2-3 days. Return to the ER if you have worsening symptoms of lightheadedness, dizziness, passing out, chest pain, or shortness of breath. Pending Studies at Discharge: No Stand-Alone Forms: My [facility] [employer], Smoking Cessation Medications and DC Order Prescriptions: New cefdinir 300 mg Capsule 300 mg PO BID 7 Days Qty: 14 RF: 0 enalapril maleate 10 mg Tablet 20 mg PO QAM 30 Days Qty: 60 RF: 0 metformin 500 mg Tablet 500 mg PO BIDM 30 Days Qty: 60 RF: 0 Continued dicyclomine 20 mg tablet 20 mg PO BID Qty: 180 RF: 3 omeprazole 20 mg capsule,delayed release(DR/EC) 20 mg PO BID Qty: 180 RF: 3 Bepreve 1.5 % drops 1 drops OPB BID RF: 0 cranberry 500 mg capsule 500 mg PO BID Qty: 60 RF: 11 potassium 99 mg Tablet 99 mg PO BID RF: 0 biotin 5,000 mcg Tablet, Sublingual 5,000 mcg sublingual QAM RF: 0 multivitamin tablet 1 tab PO QAM RF: 0 cyanocobalamin (vitamin B-12) [Vitamin B-12] 1,000 mcg tablet 1,000 mcg PO QAM RF: 0 cholecalciferol (vitamin D3) [Vitamin D3] 2,000 unit tablet 2,000 unit PO QAM RF: 0 carbidopa-levodopa 25-100 mg tablet 3 tab PO BID RF: 0 primidone 50 mg tablet See Rx Instructions .ROUTE .COMPLEX RF: 0 fluticasone propionate 50 mcg/actuation spray,suspension 1 sprays intranasal BID RF: 0 escitalopram oxalate 10 mg tablet 10 mg PO QAM RF: 0 rosuvastatin 20 mg tablet 20 mg PO QPM RF: 0 Discontinued (DME) pen needle, diabetic [BD Ultra-Fine Isabela Pen Needle] 32 gauge x 5/32" needle See Dose Instructions .ROUTE .MEDSUPPLY Qty: 200 RF: 3 (DME) OneTouch Ultra Blue Test Strip Strip See Dose Instructions .ROUTE .MEDSUPPLY Qty: 100 RF: 11 benazepril 40 mg tablet 40 mg PO QAM Qty: 90 RF: 3 Lantus Solostar U-100 Insulin 100 unit/mL (3 mL) insulin pen 30 unit subcut BID Qty: 15 RF: 7 (DME) lancets [OneTouch Delica Lancets] 33 gauge misc See Dose Instructions .ROUTE .MEDSUPPLY Qty: 100 RF: 0 furosemide 40 mg tablet 40 mg PO QAM RF: 0 doxycycline hyclate 100 mg tablet 100 mg PO BID 10 Days Qty: 20 RF: 0 metronidazole [Flagyl] 500 mg tablet 500 mg PO TID Qty: 30 RF: 0 Discharge Orders: Discharge Order (Routine); Ordered 08/13/20 Ordered By: Zulma Martinez/Other Patient Handouts: Diabetes Shopping Preparing Meals, Diabetes: Caring for Your Body, Diabetes Carbs Fats Protein Admission Data Admit Date/Time: 08/12/20 17:40 Attending Provider: Alan Goldsmith Admit Provider: Francesco France Primary Care Provider: Remedios Medrano Other Providers: Francesco France ; Soraya Schultz Other Interventions: Discharge Summary Assessment (RN) Last Done: 08/13/20 14:09 Supervising Physician Co-Signing Physician Notes Feeling better overall. Feels up to going home. Vitals noted, in general she is awake and alert somewhat slow of speechbut this appears to be chronic. No distress. HEENT normocephalic atraumatic mucous membranes moist. Breathing unlabored no accessory muscle use good effort. Skin shows no rashes no pallor or icterus. Syncopehypoglycemia versus orthostasis versus both. In discussions with patient and daughter, it is not entirely clear why she is on an insulin only regimen, does not really have any clear recollections of having been struggling with GI upset on Metformin - only vaguely remembers being on it before, nor does she recall being on a once a week injectable type of medicinein that respect, we will give trial to Metformin, and if she has GI distress without, probably switch to a GLP. At any rate with her A1c of 5.5, in spite of her shockingly bad diet, makes it fairly easily move away from insulin to something that would be less likely to induce hypoglycemia. As it relates to her blood pressure, she was running a bit on the low side while here, and given that she carries no history of CHF/pulmonary edema/etc., so we have stopped Lasix. I have reduced her ALLAN inhibitor to allow a little more margin of error in her blood pressure as well. Stable for home with close outpatient follow-up Resident Activity Tracking Resident Involvement: Resident Care Provided Care Provided: Adult Hospital Medicine
[2020-08-13 15:01] VITALS: BP 111/61; PULSE 68; TEMP 98.1; O2SAT 97
--- NOTE | 2020-08-13 17:28 | Billing Data ---
Date of Service August 13, 2020 Coding Level of Care Code 99809 Subseq Hosp Care Lvl 3
--- NOTE | 2020-08-13 17:29 | Billing Data ---
Date of Service August 13, 2020 Coding Level of Care Code D/C Day Management <30 mins Comment disregard [id number], sorry for the mis-click
== END 2020-08-13 18:00 | disposition home or self-care (01) | DRG 638 ==
LOC: ED 17:20 → 2N 17:20 → SUATTDRO 22:29 → 2N 23:37

== ENCOUNTER 2021-01-12 10:38 | Inpatient (IN) ==
[2021-01-12] MEDS ORDERED: ACETAMINOPHEN 325 MG TAB PO STA (11:36)
[2021-01-12] MEDS ORDERED: SODIUM CHLORIDE 0.9% 1000ML 1,000 ML IV SCH (11:45)
[2021-01-12 12:23] LABS: Hematocrit (blood only) 37.7 % (37-47); Hemoglobin 12.6 g/dL (12.0-16.0); Immature Granulocytes # (auto) 0.01 K/uL (0.00-0.02); Immature Granulocytes % (auto) 0.1 %; Lymphocytes # (auto) 0.25 K/uL (1.2-3.4); Lymphocytes % (auto) 3.4 %; Mean Corpuscular Hemoglobin 30.8 pg (25-34); Mean Corpuscular Hgb Conc 33.4 g/dL (32-36); Mean Corpuscular Volume 92.2 fL (80-100); Mean Platelet Volume 10.5 fL (7.4-10.4); Monocytes # (auto) 0.17 K/uL (0.11-0.59); Monocytes % (auto) 2.3 %; Neutrophils # (auto) 6.92 K/uL (1.4-6.5); Neutrophils % (auto) 94.2 %; Platelet Count 125 K/uL (130-400); RDW Coefficient of Variation 12.8 % (11.5-14.5); RDW Standard Deviation 43.7 fL (36.4-46.3); Red Blood Count 4.09 M/uL (4.2-5.4); White Blood Count 7.35 K/uL (4.8-10.8)
--- NOTE | 2021-01-12 12:30 | CT Scan Report ---
CT head/brain wo con CLINICAL HISTORY: 75 years-old Female with Fall, SEVERINO. Acute head injury status post fall TECHNIQUE: Multiple axial CT images of the head were obtained without contrast. A dose lowering tech nique was utilized adhering to the principles of ALARA. CT DOSE: 614.27 mGy.cm COMPARISON: Head CT 07/13/2018 FINDINGS: No acute intracranial hemorrhage, midline shift, intracranial mass, hydrocephalus, territorial ischem ia or abnormal extra-axial collection. Streak artifact from bilateral electrode devices which appear to be in stable positioning, distal tip terminating about the bilateral thalami. Chronic lacunar infa rct of the left cerebellar hemisphere. Senescent calcifications of the lentiform nuclei. Age-related involutional changes. Minimal ill-defined white matter hypodensities suggest chronic microvascular is chemic disease. The calvarium is intact. Mild mucoperiosteal thickening of the paranasal sinuses. Sof t tissues and orbits are unremarkable. IMPRESSION: 1. No acute intracranial abnormality. 2. Chronic findings as above. ACT 112: Negative or not required by law. The above report was generated using voice recognition software. It may contain grammatical, syntax o r spelling errors. Electronically signed by: Jl Levy M.D. 01/12/2021 12:28 PM
[2021-01-12 12:41] LABS: Alanine Aminotransferase 62 U/L (12-78); Albumin Level 3.5 gm/dl (3.4-5.0); Aspartate Aminotransferase 99 U/L (15-37); BUN Creatinine Ratio 17.3 (10-20); Blood Urea Nitrogen 17 mg/dl (7-18); Calcium 9.7 mg/dl (8.5-10.1); Carbon Dioxide 26 mmol/L (21-32); Chloride 102 mmol/L (98-107); Est GFR (African American) 65.3 ml/min; Est GFR (Non-African American) 56.3 ml/min; Glucose 187 mg/dl (70-99); Potassium 4.2 mmol/L (3.5-5.1); Sodium 137 mmol/L (136-145)
[2021-01-12 12:51] LABS: Albumin Globulin Ratio 1.1 (0.9-2); Alkaline Phosphatase 61 U/L (45-117); Bilirubin,Total 0.4 mg/dl (0.2-1); Globulin 3.2 gm/dl (2.5-4.0); Thyroid Stimulating Hormone 0.686 uIu/ml (0.300-4.500); Total Protein 6.7 gm/dl (6.4-8.2)
--- NOTE | 2021-01-12 13:36 | XRay Report ---
XR hip RT min 2V HISTORY: 75 years-old Female fall, R hip pain . Acute right hip pain status post fall COMPARISON: None TECHNIQUE: CT abdomen pelvis 07/13/2018 FINDINGS: Mild right hip osteoarthritis. No acute fracture, dislocation, opaque foreign body or avascular necro sis. IMPRESSION: Mild osteoarthritis without acute fracture or dislocation. ACT 112: Negative or not required by law. The above report was generated using voice recognition software. It may contain grammatical, syntax o r spelling errors. Electronically signed by: Jl Levy M.D. 01/12/2021 1:35 PM
--- NOTE | 2021-01-12 13:39 | XRay Report ---
XR chest 1V not portable HISTORY: 75 years-old Female weakness acute weakness COMPARISON: Chest radiograph 08/10/2020 TECHNIQUE: Portable AP view of the chest FINDINGS: Battery packs project over the chest with stimulator leads extending superiorly. The cardiomediastina l and hilar silhouettes are within normal limits. No pneumothorax, pleural effusion, airspace consoli dation or overt pulmonary edema. No acute fracture. IMPRESSION: No acute process. ACT 112: Negative or not required by law. The above report was generated using voice recognition software. It may contain grammatical, syntax o r spelling errors. Electronically signed by: Jl Levy M.D. 01/12/2021 1:38 PM
[2021-01-12 14:14] LABS: Influenza A virus by PCR Negative (Negative); Influenza B virus by PCR Negative (Negative)
[2021-01-12 14:42] LABS: Appearance Urine Clear (Clear); Bacteria Urine Automated Negative (Negative); Bilirubin Urine Negative (Negative); Blood Urine 2+ (Negative); Color Urine Dark Yellow; Epithelial Cell Urine Auto >30 /lpf (0-5); Glucose Urine UA 2+ (Negative); Ketones Urine 1+ (Negative); Leukocyte Esterase Urine 1+ (Negative); Nitrite Urine Negative (Negative); Protein Urine 1+ (Negative); RBC Urine Automated 0-4 /hpf (0-4); Specific Gravity Urine 1.024 (1.000-1.030); Urobilinogen Urine Negative (Negative); WBC Urine Automated >30 /hpf (0-5); pH Urine 6.5 (4.5-7.5)
[2021-01-12 14:52] LABS: Mucus Urine Present (None Prsent)
--- NOTE | 2021-01-12 16:24 | History & Physical Report ---
Date of Service January 12, 2021 Assessment & Plan (1) Recurrent urinary tract infection: Plan: IV Rocephin until Urine culture returns - WBC are normal, remains with elevated NLR - Follow culture (2) Fall: Plan: Patietn with 2 falls at home that she reported as yesterday. - Imaging negative for acute fracutres or process in the cranial vault - No pain to neck/back/his/shoulder or arms - Pain to left rib 4-6 - Lidocaine patch - ICS - PT/OT consult - As per HPI patient lives at home by self (3) Weight loss: Plan: Significant weight loss reported with review of PCP notes - concern of her ability to provider care for herself - nutritional consult with supplemental shakes (4) HTN, goal below 140/90: Plan: Continue enaliprilat (5) DM type 2 (diabetes mellitus, type 2): Plan: Patient on Metformin at home - Will place on aspart sliding scale at this time with CF 20- 0 carb coverage at this time - Follow her nutritional intake (6) Diastolic murmur: Plan: ECHO 08/12 performed- mitral valve calcification without regurgitation - follow clinically - likely not providing any hemodynamic changes to function (7) Memory loss: Plan: Follow with supportive care - may need delirium precautions (8) Mixed hyperlipidemia: Plan: Continue statin (9) Anxiety: Plan: Continue escitalopram (10) Essential tremor: Plan: patient with parkinsonism with deep brain stimulator in place - Continue primidone - Continue Carbidopa History of Present Illness Primary Care Provider: KEILA Lopez 75 YOF with past medical history of: DM II, weight loss, ambulatory dysfunction, HTN, memory loss, Parkinsonism, UTI (E.Coli on Bactrim as outpatient since ), nerve stimulator, . Patient comes to the emergency room today brought in by family member secondary to two falls at home and decrease in ability to take care for herself. Patient chart review from PCP shows reported 30lb weight loss since August 12 and also reports memory lapses to take her medications. 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 She has no other care-givers at home. Patient reports that she fell twice yesterday. Once in the morning after coming out of the bathroom and landing on her left side where she was able to get herself to her bed and get up. She also reports that she fell off the couch yesterday while reaching for the phone. She states she does have a cane to walk with, but was not using it. She only states that she has pain on her left side on her ribs. Patient has had previous admissions with syncope, hypovolemia, and UTIs. Patient will be admitted for IVF hydration, will place her on Rocephin for her UTI. She has a routine culture done today that is pending- she was recently placed on Bactrim. Will add urine culture on from today's urine- that was LE positive, NE nitrates, and Mucous present but no bacteria. Patient had CXR, Head CT, hip xray performed today that were negative for acute fractures, bleeding, or injury. Patient COVID test on admission is: NEGATIVE Allergies Allergy/AdvReac Type Severity Reaction Status Date / Time levetiracetam Allergy Intermediate Rash Verified 01/12/21 14:57 adhesive tape Allergy Mild Rash Verified 01/12/21 14:57 naproxen Allergy Mild RASH Verified 01/12/21 14:57 ampicillin Allergy Unknown Unknown Verified 01/12/21 14:57 morphine Allergy Unknown Unknown Verified 01/12/21 14:57 Penicillins Allergy Unknown HAD Verified 01/12/21 14:57 CEPHALEXIN BEFORE AND OK, PCN=FACIAL SWELLING Sulfa (Sulfonamide AdvReac Intermediate N/V Verified 01/12/21 14:57 Antibiotics) Home Medications Medication Instructions Recorded Confirmed Type biotin 5,000 mcg sublingual tablet 5,000 mcg SUBLINGUAL QAM 07/13/18 01/12/21 History cholecalciferol (vitamin D3) 50 2,000 unit PO QAM tab 09/08/18 01/12/21 History mcg (2,000 unit) tablet (Vitamin D3) cyanocobalamin (vitamin B-12) 1,000 mcg PO QAM tab 09/08/18 01/12/21 History 1,000 mcg tablet (Vitamin B-12) multivitamin 1 tab PO QAM tab 09/08/18 01/12/21 History carbidopa 25 mg-levodopa 100 mg 3 tab PO BID tab 09/15/18 01/12/21 History tablet bepotastine besilate 1.5 % eye 1 drops OPB BID 02/23/19 01/12/21 History drops (Bepreve) dicyclomine 20 mg tablet 20 mg PO BID #180 tab 07/15/20 01/03/21 Rx fluticasone propionate 50 1 sprays INTRANASAL BID 08/04/20 01/12/21 History mcg/actuation nasal spray,suspension rosuvastatin 20 mg tablet 20 mg PO HS 08/04/20 01/12/21 History omeprazole 20 mg capsule,delayed 20 mg PO DAILY #90 cap 08/15/20 01/03/21 Rx release metformin 500 mg tablet 500 mg PO BIDM 30 Days #60 tab 09/09/20 01/12/21 Rx enalapril maleate 10 mg tablet 10 mg PO QAM 30 Days #30 tab 09/12/20 01/03/21 Rx primidone 50 mg tablet 100 mg PO BID tab 11/01/20 01/12/21 History escitalopram oxalate 10 mg tablet 10 mg PO QAM #90 tab 12/09/20 01/12/21 Rx ondansetron HCl 4 mg tablet 4 mg PO Q8H PRN #20 tab 01/10/21 01/12/21 Rx (Zofran) sulfamethoxazole 800 1 tab PO BID #10 tab 01/10/21 01/12/21 Rx mg-trimethoprim 160 mg tablet (Bactrim DS) potassium gluconate 600 mg (99 mg) 600 mg PO BID 01/12/21 01/12/21 History tablet Past Med/Surg History Medical History Asthma GERD (gastroesophageal reflux disease) resolved, off PPI Sensorineural hearing loss (SNHL) of both ears Tubular adenoma of colon Surgical History S/P cholecystectomy S/P deep brain stimulator placement (08/20/16) S/P sinus surgery Status post tubal ligation Family History Father Cancer Mother Depression Hypertension Stroke Grandmother Breast cancer Mother Myocardial infarction Denies family history of Ovarian cancer Prostate cancer Colorectal cancer Social History Smoking Status: Former smoker Smoking End Date: Quit many years ago (over 10 years).; Second Hand Exposure: No; Do You Dip or Chew Tobacco: No; Tobacco Cessation Education Requested by Patient: No Hx Alcohol Use: No Hx Substance Use: No Preferred Language: Yi Communication Ability: Effective Barrel Handler Required: No Beliefs That Will Affect Care: None marital status: / Current Living Situation: Alone current occupational status: retired Other Information That Helps Us Care for You: No Feels Safe at Home: Yes Safety Concerns: Feels Safe At This Time caffeine: Yes Dental Care, Regularly: No Physical Activity Frequency: Does not Exercise Seatbelt Use: always Sunscreen Use: No Assistive Devices: Cane, Denture - Upper, Denture - Lower, Glasses and Walker Review of Systems Review of Systems: REVIEW OF SYSTEMS: Constitutional: No fever, sweats or chills Eyes: No diplopia, no worsening or blurred vision ENT: normal hearing, no trouble swallowing Respiratory: No cough, sputum, dyspnea at rest or on exertion Cardiovascular: No chest pain, tightness or palpitations Abdomen: No pain, nausea, vomiting, diarrhea or constipation Musculoskeletal: (+) left rib pain, No joint pain, hip or pelvis pain, calf pain, swelling Neurologic: No weakness, numbness/tingling, or balance problems Psychiatric: No anxiety or depression Skin: No rash or itch Physical Exam Physical Exam: PHYSICAL EXAM: General: awake, alert, no apparent distress Head: Normocephalic, atraumatic ENT: PERRL, EOMI, no pharyngeal exudate, mucous membranes dry Neuro: AAO x 3, speech clear and appropriate, strength intact bilaterally 5/5, sensation intact and equal all extremities and dermatomes, no pronator drift Chest: equal rise and fall of the chest, no accessory muscle use, no heaves or thrills, Clear to auscultation, on room air, Cardiac: Regular rate and rhythm, telemetry reviewed- NSR, skin warm dry, cap refill <3 seconds, peripheral pulses +2 no JVD, no murmur, no edema GI: NABS x 4 quadrants, soft, nontender to palpation, no rebound, guarding or t enderness : Spontaneously voiding, no pain, no CVA tenderness, Extremities: Normal inspection, no peripheral edema or erythema, calfs nontender to palpation Psych: Normal mood and affect Skin: no rash or erythema, ecchymosis to lower leg Results & Data Results & Data ([facility]) Vital Signs (Past 12 Hours) Vital Signs Temp Pulse Pulse Resp BP BP Pulse Ox 01/12/21 14:21 74 18 102/56 L 97 01/12/21 14:00 78 21 104/57 L 91 01/12/21 13:30 86 23 111/82 96 01/12/21 13:00 80 22 110/59 L 96 01/12/21 12:30 82 24 98 01/12/21 11:30 87 24 108/86 98 01/12/21 10:50 37.8 C H 88 88 18 131/63 131/63 96 Laboratory Results Abnormal Labs 01/12/21 01/12/21 01/12/21 12:05 12:05 14:15 RBC 4.09 L Plt Count 125 L MPV 10.5 H Neut # (Auto) 6.92 H Lymph # (Auto) 0.25 L Glucose 187 H AST 99 H Urine Protein 1+ H Urine Glucose (UA) 2+ H Urine Ketones 1+ H Urine Blood 2+ H Ur Leukocyte Esterase 1+ H Urine WBC (Auto) >30 H U Hyaline Cast (Auto) 5-10 H U Epithel Cells (Auto) >30 H Urine Mucus Present A Diagnostic Findings Chest X-Ray 01/12/21 11:33 XR chest 1V not portable HISTORY: 75 years-old Female weakness acute weakness COMPARISON: Chest radiograph 08/10/2020 TECHNIQUE: Portable AP view of the chest FINDINGS: Battery packs project over the chest with stimulator leads extending superiorly. The cardiomediastinal and hilar silhouettes are within normal limits. No pneumothorax, pleural effusion, airspace consolidation or overt pulmonary edema. No acute fracture. IMPRESSION: No acute process. ACT 112: Negative or not required by law. The above report was generated using voice recognition software. It may contain grammatical, syntax or spelling errors. Electronically signed by: Jl Levy M.D. 01/12/2021 1:[address] 01/12/21 11:36 CT head/brain wo con CLINICAL HISTORY: 75 years-old Female with Fall, SEVERINO. Acute head injury status post fall TECHNIQUE: Multiple axial CT images of the head were obtained without contrast. A dose lowering technique was utilized adhering to the principles of ALARA. CT DOSE: 614.27 mGy.cm COMPARISON: Head CT 07/13/2018 FINDINGS: No acute intracranial hemorrhage, midline shift, intracranial mass, hydrocephalus, territorial ischemia or abnormal extra-axial collection. Streak artifact from bilateral electrode devices which appear to be in stable positioning, distal tip terminating about the bilateral thalami. 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 Senescent calcifications of the lentiform nuclei. Age-related involutional changes. Minimal ill-defined white matter hypodensities suggest chronic microvascular ischemic disease. The calvarium is intact. Mild mucoperiosteal thickening of the paranasal sinuses. Soft tissues and orbits are unremarkable. IMPRESSION: 1. No acute intracranial abnormality. 2. Chronic findings as above. ACT 112: Negative or not required by law. The above report was generated using voice recognition software. It may contain grammatical, syntax or spelling errors. Electronically signed by: Jl Levy M.D. 01/12/2021 12:28 PM Hip X-Ray 01/12/21 11:59 XR hip RT min 2V HISTORY: 75 years-old Female fall, R hip pain . Acute right hip pain status post fall COMPARISON: None TECHNIQUE: CT abdomen pelvis 07/13/2018 FINDINGS: Mild right hip osteoarthritis. No acute fracture, dislocation, opaque foreign body or avascular necrosis. IMPRESSION: Mild osteoarthritis without acute fracture or dislocation. ACT 112: Negative or not required by law. The above report was generated using voice recognition software. It may contain grammatical, syntax or spelling errors. Electronically signed by: Jl Levy M.D. 01/12/2021 1:35 PM Medications Administered Home Medications biotin 5,000 mcg sublingual tablet 5,000 mcg SUBLINGUAL QAM 07/13/18 [History Confirmed 01/12/21] cholecalciferol (vitamin D3) 50 mcg (2,000 unit) tablet (Vitamin D3) 2,000 unit PO QAM tab 09/08/18 [History Confirmed 01/12/21] cyanocobalamin (vitamin B-12) 1,000 mcg tablet (Vitamin B-12) 1,000 mcg PO QAM tab 09/08/18 [History Confirmed 01/12/21] multivitamin 1 tab PO QAM tab 09/08/18 [History Confirmed 01/12/21] carbidopa 25 mg-levodopa 100 mg tablet 3 tab PO BID tab 09/15/18 [History Confirmed 01/12/21] bepotastine besilate 1.5 % eye drops (Bepreve) 1 drops OPB BID 02/23/19 [History Confirmed 01/12/21] dicyclomine 20 mg tablet 20 mg PO BID #180 tab 07/15/20 [Rx Confirmed 01/03/21] fluticasone propionate 50 mcg/actuation nasal spray,suspension 1 sprays INTRANASAL BID 08/04/20 [History Confirmed 01/12/21] rosuvastatin 20 mg tablet 20 mg PO HS 08/04/20 [History Confirmed 01/12/21] omeprazole 20 mg capsule,delayed release 20 mg PO DAILY #90 cap 08/15/20 [Rx Confirmed 01/03/21] metformin 500 mg tablet 500 mg PO BIDM 30 Days #60 tab 09/09/20 [Rx Confirmed 01/12/21] enalapril maleate 10 mg tablet 10 mg PO QAM 30 Days #30 tab 09/12/20 [Rx Confirmed 01/03/21] primidone 50 mg tablet 100 mg PO BID tab 11/01/20 [History Confirmed 01/12/21] escitalopram oxalate 10 mg tablet 10 mg PO QAM #90 tab 12/09/20 [Rx Confirmed 01/12/21] ondansetron HCl 4 mg tablet (Zofran) 4 mg PO Q8H PRN #20 tab 01/10/21 [Rx Confirmed 01/12/21] sulfamethoxazole 800 mg-trimethoprim 160 mg tablet (Bactrim DS) 1 tab PO BID #10 tab 01/10/21 [Rx Confirmed 01/12/21] potassium gluconate 600 mg (99 mg) tablet 600 mg PO BID 01/12/21 [History Confirmed 01/12/21] Active Medications Heparin Sodium (Porcine) (Heparin Sod 5,000 Unit/0.5 Ml Vial) 5,000 units SQ Q12 ABIGAIL Stop: 02/11/21 20:59 Sodium Chloride (Nss 1000ml) 1,000 mls @ 125 mls/hr IV .Q8H ABIGAIL Stop: 02/11/21 11:44 Last Admin: 01/12/21 12:13 Dose: 125 mls/hr Documented by: Sodium Chloride (Nss 1000ml) 1,000 mls @ 125 mls/hr IV .Q8H ABIGAIL Stop: 02/11/21 11:44 Last Admin: 01/12/21 12:13 Dose: 125 mls/hr Documented by: [id number] Discontinued Medications Acetaminophen (Acetaminophen 325 Mg Tab) 650 mg PO NOW STA Stop: 01/12/21 11:37 Last Admin: 01/12/21 12:09 Dose: 650 mg Documented by: [id number] ECG Additional Comments: Normal sinus rhythm Nonspecific ST and T wave abnormality Abnormal ECG When compared with ECG of 10-AUG-2020 17:44, QRS duration has decreased Code Status & VTE Plan Code Status CODE: FULL VTE: SCDs, Heparin 5000 units sub q q12 VTE Prophylaxis Plan VTE Prophylaxis will be ordered: Yes Supervising Physician Co-Signing Physician Notes Patient was seen and examined independently I discussed the case with Mart PEDRAZA I reviewed pertinent past medical social family history and also the plan of care and agree with the plan of care. Patient pleasantly confused cannot care for herself brought in by her across a street neighbor. No focal complaints or problems does have concern for urinary infection with low-grade temperature abnormal urinalysis given ceftriaxone in the ER which will be continued on. Physical exam is unremarkable. Any exceptions will be noted below PG Care Time/CCT Total # of Minutes Spent Total Time Spent with Patient: Total time spent is greater than 50% in coordination of care (as documented) at patient's floor/unit and/or counseling patient: Coding Level of Care Code INT OBSERVATION CARE 70M LVL 3 Diagnoses Recurrent urinary tract infection N39.0 DM type 2 (diabetes mellitus, type 2) E11.9 Diastolic murmur I38 Memory loss R41.3 Mixed hyperlipidemia E78.2 Anxiety F41.9 HTN, goal below 140/90 I10 Essential tremor G25.0 Fall W19.XXXA Weight loss R63.4
[2021-01-12] MEDS ORDERED: GLUCOSE 40% GEL 15 GM TUBE PO PRN (19:19)
[2021-01-12] MEDS ORDERED: GLUCOSE 10 TABS/TUBE PO PRN (19:19)
[2021-01-12] MEDS ORDERED: GLUCAGON FOR INJ 1 MG VIAL SQ PRN (19:19)
[2021-01-12] MEDS ORDERED: CARBOHYDRATES FOR HYPOGLYCEMIA PO PRN (19:19)
[2021-01-12] MEDS ORDERED: DEXTROSE 50% 50 ML SYRINGE IV PRN (19:19)
[2021-01-12] MEDS: cefTRIAXone SODIUM 1,000 MG in DEXTROSE 5% 50 ML IV SCH (20:26)
[2021-01-12] MEDS: LIDOCAINE 5% 1 PATCH TD SCH (20:30)
[2021-01-12] MEDS: CARBIDOPA/LEVODOPA 25/100MG TAB PO SCH (20:30)
[2021-01-12] MEDS: DICYCLOMINE HCL 20 MG TAB PO SCH (20:31)
[2021-01-12] MEDS: HEPARIN SOD 5,000 UNIT/0.5 ML VIAL SQ SCH (20:32)
[2021-01-12] MEDS: PRIMIDONE 50 MG TAB PO SCH (20:33)
[2021-01-12] MEDS: ROSUVASTATIN CALCIUM 20 MG TAB PO SCH (20:34)
[2021-01-12] MEDS: FLUTICASONE PROPIONATE NA SPR 16 GM BTL NAE SCH (20:37)
[2021-01-12] MEDS: INSULIN ASPART 100 UNITS/ML 3 ML PEN SC SCH (20:40)
--- NOTE | 2021-01-12 22:04 | Emergency Department Note ---
Impression & Plan Acute UTI, Parkinsons disease, Fall ED Provider Note CHIEF COMPLAINT: falls, weakness HISTORY OF PRESENT ILLNESS: This 75-year-old female patient presents to the emergency department with complaints of generalized weakness and falls. Patient recently has had 2 falls, one off of the couch reaching for the telephone and another in the bathroom today. Patient states she fell forward and injured the left side of her chest wall. It does hurt her more when she takes a deep breath although she denies any significant chest pain or difficulty breathing. Patient was recently treated with Bactrim for UTI. She does have a known history of Parkinson's disease and has fallen in the past requiring hospitalization. She denies any recent fevers, chills, vomiting or diarrhea. She is having increased difficulty taking care of herself and ambulating at home. She does usually use a cane but did not have it with her in the bathroom. She denies hitting her head or losing consciousness. Patient does not currently take any blood thinners but does admit to weight loss and difficulty remembering her medicines. REVIEW OF SYSTEMS: A review of systems was performed with positives and pertine nt negatives listed in the history of present illness. 10 systems were reviewed and are otherwise negative. ALLERGIES: see below MEDICATIONS: see below PMH: see below SOCIAL HISTORY: see below DDx:Infection, dehydration, metabolic abnormality, hypo/hyperglycemia, electrolyte disturbance, anemia, hypoxia, cardiac sources, intracerebral event, toxicologic, neurologic, as well as other pathologies. PHYSICAL EXAM: Vital signs reviewed. General: Elderly, chronically ill-appearing 75-year-old female, in no significant distress. HEENT: No scleral icterus, PERRLA, neck supple. Atraumatic. Cardiovascular: Regular rate and rhythm, no extra sounds. Pulmonary: Clear to auscultation bilaterally, normal work of breathing. Abdomen: Soft, nontender, nondistended, positive bowel sounds. Musculoskeletal: Atraumatic, no peripheral edema. Nontender to palpation over the cervical and thoracic spines. Moves all extremities. No pain with pelvic rocking or movement of the hips. Neurologic: Patient awake alert and oriented x 3, generally flat affect however answers questions slowly but appropriately. Skin: Warm, dry, no rash EMERGENCY DEPARTMENT COURSE/MDM: This patient was evaluated and appeared to be in no significant distress. IV access was obtained and laboratory work was drawn. Patient was placed on the court recording monitor. She was hydrated with normal saline solution. Physical examination is fairly significant for elderly and weekend patient. CT imaging is negative for acute pathology of the head. X- rays of the chest and hip are negative for acute findings. I suspect the patient has suffered from a contusion of the chest wall or muscular strain. There is no evidence of rib fracture. Nursing attempted to ambulate the patient was great difficulty. She is currently not safe to be at home by herself. There is no caregiver available. She does appear to be suffering from UTI. She was given IV ceftriaxone and will be evaluated by the hospitalist service for further management. MONITORING: An order for cardiac monitoring was placed and the patient is noted to be in a normal sinus rhythm at 88 beats per minute. RADIOLOGY: see below EKG: Quality baseline for interpretation, interfering stimulator. Normal sinus rhythm at 87 bpm. No PVC, no PAC. Nonspecific ST and T wave abnormality. Normal QTC, normal axis. DISPOSITION: Home Past Med/Surg History Medical History Asthma GERD (gastroesophageal reflux disease) resolved, off PPI Sensorineural hearing loss (SNHL) of both ears Tubular adenoma of colon Surgical History S/P cholecystectomy S/P deep brain stimulator placement (08/20/16) S/P sinus surgery Status post tubal ligation Family History Father Cancer Mother Depression Hypertension Stroke Grandmother Breast cancer Mother Myocardial infarction Denies family history of Ovarian cancer Prostate cancer Colorectal cancer Social History Smoking Status: Former smoker Smoking End Date: Quit many years ago (over 10 years).; Second Hand Exposure: No; Do You Dip or Chew Tobacco: No; Tobacco Cessation Education Requested by Patient: No Hx Alcohol Use: No Hx Substance Use: No Preferred Language: Cymro Communication Ability: Effective Primer Press Operator Required: No Beliefs That Will Affect Care: None marital status: / Current Living Situation: Alone current occupational status: retired Other Information That Helps Us Care for You: No Feels Safe at Home: Yes Safety Concerns: Feels Safe At This Time caffeine: Yes Dental Care, Regularly: No Physical Activity Frequency: Does not Exercise Seatbelt Use: always Sunscreen Use: No Assistive Devices: Denture - Upper, Glasses and Walker Allergies Allergies Allergy/AdvReac Type Severity Reaction Status Date / Time levetiracetam Allergy Intermediate Rash Verified 01/12/21 14:57 adhesive tape Allergy Mild Rash Verified 01/12/21 14:57 naproxen Allergy Mild RASH Verified 01/12/21 14:57 ampicillin Allergy Unknown Unknown Verified 01/12/21 14:57 morphine Allergy Unknown Unknown Verified 01/12/21 14:57 Penicillins Allergy Unknown HAD Verified 01/12/21 14:57 CEPHALEXIN BEFORE AND OK, PCN=FACIAL SWELLING Sulfa (Sulfonamide AdvReac Intermediate N/V Verified 01/12/21 14:57 Antibiotics) Home Meds Home Medications Medication Instructions Recorded Confirmed biotin 5,000 mcg sublingual tablet 5,000 mcg SUBLINGUAL QAM 07/13/18 01/12/21 cholecalciferol (vitamin D3) 50 2,000 unit PO QAM tab 09/08/18 01/12/21 mcg (2,000 unit) tablet (Vitamin D3) cyanocobalamin (vitamin B-12) 1,000 mcg PO QAM tab 09/08/18 01/12/21 1,000 mcg tablet (Vitamin B-12) multivitamin 1 tab PO QAM tab 09/08/18 01/12/21 carbidopa 25 mg-levodopa 100 mg 3 tab PO BID tab 09/15/18 01/12/21 tablet bepotastine besilate 1.5 % eye 1 drops OPB BID 02/23/19 01/12/21 drops (Bepreve) fluticasone propionate 50 1 sprays INTRANASAL BID 08/04/20 01/12/21 mcg/actuation nasal spray,suspension rosuvastatin 20 mg tablet 20 mg PO HS 08/04/20 01/12/21 primidone 50 mg tablet 100 mg PO BID tab 11/01/20 01/12/21 potassium gluconate 600 mg (99 mg) 600 mg PO BID 01/12/21 01/12/21 tablet Previous Rx's Medication Instructions Recorded dicyclomine 20 mg tablet 20 mg PO BID #180 tab 07/15/20 omeprazole 20 mg capsule,delayed 20 mg PO DAILY #90 cap 08/15/20 release metformin 500 mg tablet 500 mg PO BIDM 30 Days #60 tab 09/09/20 enalapril maleate 10 mg tablet 10 mg PO QAM 30 Days #30 tab 09/12/20 escitalopram oxalate 10 mg tablet 10 mg PO QAM #90 tab 12/09/20 ondansetron HCl 4 mg tablet 4 mg PO Q8H PRN #20 tab 01/10/21 (Zofran) sulfamethoxazole 800 1 tab PO BID #10 tab 01/10/21 mg-trimethoprim 160 mg tablet (Bactrim DS) Results & Data (ED) Vital Signs Vital Signs - 24 hr 01/12/21 10:50 01/12/21 11:30 01/12/21 11:33 Temperature 37.8 C H Temperature Source Oral Pulse Rate 88 87 Pulse Rate [Apical] 88 Pulse Rate from SpO2 Sensor 88 Pulse Rhythm [Apical] Regular Respiratory Rate 18 24 Respiratory Depth Normal Respiratory Pattern Regular Blood Pressure 131/63 108/86 Blood Pressure [Left Arm] 131/63 Blood Pressure Mean 85 93 Blood Pressure Mean [Left Arm] 85 Pulse Oximetry 96 98 Oxygen Delivery Method Room Air Room Air Sepsis Recent Fever Within 48 Hours Yes Sepsis New/Unexplained Change in Mental Status No Sepsis Action Taken by Nursing No Action Required 01/12/21 12:30 01/12/21 13:00 01/12/21 13:30 Temperature Temperature Source Pulse Rate 82 80 86 Pulse Rate [Apical] Pulse Rate from SpO2 Sensor 81 80 86 Pulse Rhythm [Apical] Respiratory Rate 24 22 23 Respiratory Depth Respiratory Pattern Blood Pressure 110/59 L 111/82 Blood Pressure [Left Arm] Blood Pressure Mean 76 91 Blood Pressure Mean [Left Arm] Pulse Oximetry 98 96 96 Oxygen Delivery Method Sepsis Recent Fever Within 48 Hours Sepsis New/Unexplained Change in Mental Status Sepsis Action Taken by Nursing 01/12/21 14:00 01/12/21 14:21 01/12/21 16:00 Temperature Temperature Source Pulse Rate 78 Pulse Rate [Apical] 74 80 Pulse Rate from SpO2 Sensor 78 Pulse Rhythm [Apical] Respiratory Rate 21 18 18 Respiratory Depth Respiratory Pattern Blood Pressure 104/57 L Blood Pressure [Left Arm] 102/56 L 81/67 L Blood Pressure Mean 72 Blood Pressure Mean [Left Arm] 71 71 Pulse Oximetry 91 97 99 Oxygen Delivery Method Room Air Room Air Sepsis Recent Fever Within 48 Hours Sepsis New/Unexplained Change in Mental Status Sepsis Action Taken by [facility] Medications Current Medication List: was personally reviewed by me Laboratory Data Attestation: I reviewed the patient's lab results. Result diagrams: 01/13/21 08:59 01/16/21 09:14 Lab Results 01/12/21 01/12/21 01/12/21 Range/Units 12:05 12:05 13:49 WBC 7.35 (4.8-10.8) K/uL RBC 4.09 L (4.2-5.4) M/uL Hgb 12.6 (12.0-16.0) g/dL Hct 37.7 (37-47) % MCV 92.2 (80-100) fL MCH 30.8 (25-34) pg MCHC 33.4 (32-36) g/dL RDW Std Deviation 43.7 (36.4-46.3) fL RDW Coeff of Sunitha 12.8 (11.5-14.5) % Plt Count 125 L (130-400) K/uL MPV 10.5 H (7.4-10.4) fL Immature Gran % (Auto) 0.1 % Neut % (Auto) 94.2 % Lymph % (Auto) 3.4 % [place] % (Auto) 2.3 % Eos % (Auto) 0.0 % Baso % (Auto) 0.0 % Neut # (Auto) 6.92 H (1.4-6.5) K/uL Lymph # (Auto) 0.25 L (1.2-3.4) K/uL [place] # (Auto) 0.17 (0.11-0.59) K/uL Eos # (Auto) 0.00 (0-0.5) K/uL Baso # (Auto) 0.00 (0-0.2) K/uL Immature Gran # (Auto) 0.01 (0.00-0.02) K/uL Sodium 137 (136-145) mmol/L Potassium 4.2 (3.5-5.1) mmol/L Chloride 102 (98-107) mmol/L Carbon Dioxide 26 (21-32) mmol/L Anion Gap 9.0 (3-11) BUN 17 (7-18) mg/dl Creatinine 0.97 (0.6-1.2) mg/dl Est Cr Clr Drug Dosing Not Reportable Est GFR ( Amer) 65.3 ml/min Est GFR (Non-Af Amer) 56.3 ml/min BUN/Creatinine Ratio 17.3 (10-20) Glucose 187 H (70-99) mg/dl POC Glucose (70-99) mg/dl Calcium 9.7 (8.5-10.1) mg/dl Total Bilirubin 0.4 (0.2-1) mg/dl AST 99 H (15-37) U/L ALT 62 (12-78) U/L Alkaline Phosphatase 61 (45-117) U/L Troponin I (0-0.045) ng/ml Total Protein 6.7 (6.4-8.2) gm/dl Albumin 3.5 (3.4-5.0) gm/dl Globulin 3.2 (2.5-4.0) gm/dl Albumin/Globulin Ratio 1.1 (0.9-2) TSH 0.686 (0.300-4.500) uIu/ml Urine Color Urine Appearance (Clear) Urine pH (4.5-7.5) Ur Specific [place] (1.000-1.030) Urine Protein (Negative) Urine Glucose (UA) (Negative) Urine Ketones (Negative) Urine Blood (Negative) Urine Nitrite (Negative) Urine Bilirubin (Negative) Urine Urobilinogen (Negative) Ur Leukocyte Esterase (Negative) Urine WBC (Auto) (0-5) /hpf Urine RBC (Auto) (0-4) /hpf U Hyaline Cast (Auto) (0-5) /lpf U Epithel Cells (Auto) (0-5) /lpf Urine Bacteria (Auto) (Negative) Ur Renal Epithelial Cell Urine Mucus (None Prsent) SARS-CoV-2 (PCR) (Negative) Influ A Molecular Assay Negative (Negative) Influ B Molecular Assay Negative (Negative) 01/12/21 01/12/21 01/12/21 Range/Units 13:49 14:15 20:39 WBC (4.8-10.8) K/uL RBC (4.2-5.4) M/uL Hgb (12.0-16.0) g/dL Hct (37-47) % MCV (80-100) fL MCH (25-34) pg MCHC (32-36) g/dL RDW Std Deviation (36.4-46.3) fL RDW Coeff of Sunitha (11.5-14.5) % Plt Count (130-400) K/uL MPV (7.4-10.4) fL Immature Gran % (Auto) % Neut % (Auto) % Lymph % (Auto) % [place] % (Auto) % Eos % (Auto) % Baso % (Auto) % Neut # (Auto) (1.4-6.5) K/uL Lymph # (Auto) (1.2-3.4) K/uL [place] # (Auto) (0.11-0.59) K/uL Eos # (Auto) (0-0.5) K/uL Baso # (Auto) (0-0.2) K/uL Immature Gran # (Auto) (0.00-0.02) K/uL Sodium (136-145) mmol/L Potassium (3.5-5.1) mmol/L Chloride (98-107) mmol/L Carbon Dioxide (21-32) mmol/L Anion Gap (3-11) BUN (7-18) mg/dl Creatinine (0.6-1.2) mg/dl Est Cr Clr Drug Dosing Est GFR ( Amer) ml/min Est GFR (Non-Af Amer) ml/min BUN/Creatinine Ratio (10-20) Glucose (70-99) mg/dl POC Glucose 131 H (70-99) mg/dl Calcium (8.5-10.1) mg/dl Total Bilirubin (0.2-1) mg/dl AST (15-37) U/L ALT (12-78) U/L Alkaline Phosphatase (45-117) U/L Troponin I (0-0.045) ng/ml Total Protein (6.4-8.2) gm/dl Albumin (3.4-5.0) gm/dl Globulin (2.5-4.0) gm/dl Albumin/Globulin Ratio (0.9-2) TSH (0.300-4.500) uIu/ml Urine Color Dark Yellow Urine Appearance Clear (Clear) Urine pH 6.5 (4.5-7.5) Ur Specific [place] 1.024 (1.000-1.030) Urine Protein 1+ H (Negative) Urine Glucose (UA) 2+ H (Negative) Urine Ketones 1+ H (Negative) Urine Blood 2+ H (Negative) Urine Nitrite Negative (Negative) Urine Bilirubin Negative (Negative) Urine Urobilinogen Negative (Negative) Ur Leukocyte Esterase 1+ H (Negative) Urine WBC (Auto) >30 H (0-5) /hpf Urine RBC (Auto) 0-4 (0-4) /hpf U Hyaline Cast (Auto) 5-10 H (0-5) /lpf U Epithel Cells (Auto) >30 H (0-5) /lpf Urine Bacteria (Auto) Negative (Negative) Ur Renal Epithelial Cell Not Reportable Urine Mucus Present A (None Prsent) SARS-CoV-2 (PCR) NEGATIVE (Negative) Influ A Molecular Assay (Negative) Influ B Molecular Assay (Negative) 01/13/21 01/13/21 01/13/21 Range/Units 07:57 08:59 08:59 WBC 3.35 L (4.8-10.8) K/uL RBC 3.95 L (4.2-5.4) M/uL Hgb 12.2 (12.0-16.0) g/dL Hct 35.9 L (37-47) % MCV 90.9 (80-100) fL MCH 30.9 (25-34) pg MCHC 34.0 (32-36) g/dL RDW Std Deviation 43.7 (36.4-46.3) fL RDW Coeff of Sunitha 13.1 (11.5-14.5) % Plt Count 123 L (130-400) K/uL MPV 10.1 (7.4-10.4) fL Immature Gran % (Auto) 0.0 % Neut % (Auto) 82.9 % Lymph % (Auto) 9.3 % [place] % (Auto) 7.2 % Eos % (Auto) 0.3 % Baso % (Auto) 0.3 % Neut # (Auto) 2.78 (1.4-6.5) K/uL Lymph # (Auto) 0.31 L (1.2-3.4) K/uL [place] # (Auto) 0.24 (0.11-0.59) K/uL Eos # (Auto) 0.01 (0-0.5) K/uL Baso # (Auto) 0.01 (0-0.2) K/uL Immature Gran # (Auto) 0.00 (0.00-0.02) K/uL Sodium 137 (136-145) mmol/L Potassium 4.0 (3.5-5.1) mmol/L Chloride 104 (98-107) mmol/L Carbon Dioxide 23 (21-32) mmol/L Anion Gap 10.0 (3-11) BUN 18 (7-18) mg/dl Creatinine 0.70 (0.6-1.2) mg/dl Est Cr Clr Drug Dosing 60.6 Est GFR ( Amer) 96.9 ml/min Est GFR (Non-Af Amer) 83.6 ml/min BUN/Creatinine Ratio 25.6 H (10-20) Glucose 141 H (70-99) mg/dl POC Glucose 119 H (70-99) mg/dl Calcium 9.0 (8.5-10.1) mg/dl Total Bilirubin (0.2-1) mg/dl AST (15-37) U/L ALT (12-78) U/L Alkaline Phosphatase (45-117) U/L Troponin I < 0.015 (0-0.045) ng/ml Total Protein (6.4-8.2) gm/dl Albumin (3.4-5.0) gm/dl Globulin (2.5-4.0) gm/dl Albumin/Globulin Ratio (0.9-2) TSH (0.300-4.500) uIu/ml Urine Color Urine Appearance (Clear) Urine pH (4.5-7.5) Ur Specific [place] (1.000-1.030) Urine Protein (Negative) Urine Glucose (UA) (Negative) Urine Ketones (Negative) Urine Blood (Negative) Urine Nitrite (Negative) Urine Bilirubin (Negative) Urine Urobilinogen (Negative) Ur Leukocyte Esterase (Negative) Urine WBC (Auto) (0-5) /hpf Urine RBC (Auto) (0-4) /hpf U Hyaline Cast (Auto) (0-5) /lpf U Epithel Cells (Auto) (0-5) /lpf Urine Bacteria (Auto) (Negative) Ur Renal Epithelial Cell Urine Mucus (None Prsent) SARS-CoV-2 (PCR) (Negative) Influ A Molecular Assay (Negative) Influ B Molecular Assay (Negative) 01/13/21 01/13/21 01/13/21 Range/Units 12:06 17:10 20:30 WBC (4.8-10.8) K/uL RBC (4.2-5.4) M/uL Hgb (12.0-16.0) g/dL Hct (37-47) % MCV (80-100) fL MCH (25-34) pg MCHC (32-36) g/dL RDW Std Deviation (36.4-46.3) fL RDW Coeff of Sunitha (11.5-14.5) % Plt Count (130-400) K/uL MPV (7.4-10.4) fL Immature Gran % (Auto) % Neut % (Auto) % Lymph % (Auto) % [place] % (Auto) % Eos % (Auto) % Baso % (Auto) % Neut # (Auto) (1.4-6.5) K/uL Lymph # (Auto) (1.2-3.4) K/uL [place] # (Auto) (0.11-0.59) K/uL Eos # (Auto) (0-0.5) K/uL Baso # (Auto) (0-0.2) K/uL Immature Gran # (Auto) (0.00-0.02) K/uL Sodium (136-145) mmol/L Potassium (3.5-5.1) mmol/L Chloride (98-107) mmol/L Carbon Dioxide (21-32) mmol/L Anion Gap (3-11) BUN (7-18) mg/dl Creatinine (0.6-1.2) mg/dl Est Cr Clr Drug Dosing Est GFR ( Amer) ml/min Est GFR (Non-Af Amer) ml/min BUN/Creatinine Ratio (10-20) Glucose (70-99) mg/dl POC Glucose 160 H 116 H 139 H (70-99) mg/dl Calcium (8.5-10.1) mg/dl Total Bilirubin (0.2-1) mg/dl AST (15-37) U/L ALT (12-78) U/L Alkaline Phosphatase (45-117) U/L Troponin I (0-0.045) ng/ml Total Protein (6.4-8.2) gm/dl Albumin (3.4-5.0) gm/dl Globulin (2.5-4.0) gm/dl Albumin/Globulin Ratio (0.9-2) TSH (0.300-4.500) uIu/ml Urine Color Urine Appearance (Clear) Urine pH (4.5-7.5) Ur Specific [place] (1.000-1.030) Urine Protein (Negative) Urine Glucose (UA) (Negative) Urine Ketones (Negative) Urine Blood (Negative) Urine Nitrite (Negative) Urine Bilirubin (Negative) Urine Urobilinogen (Negative) Ur Leukocyte Esterase (Negative) Urine WBC (Auto) (0-5) /hpf Urine RBC (Auto) (0-4) /hpf U Hyaline Cast (Auto) (0-5) /lpf U Epithel Cells (Auto) (0-5) /lpf Urine Bacteria (Auto) (Negative) Ur Renal Epithelial Cell Urine Mucus (None Prsent) SARS-CoV-2 (PCR) (Negative) Influ A Molecular Assay (Negative) Influ B Molecular Assay (Negative) 01/14/21 01/14/21 01/14/21 Range/Units 06:35 08:09 12:03 WBC (4.8-10.8) K/uL RBC (4.2-5.4) M/uL Hgb (12.0-16.0) g/dL Hct (37-47) % MCV (80-100) fL MCH (25-34) pg MCHC (32-36) g/dL RDW Std Deviation (36.4-46.3) fL RDW Coeff of Sunitha (11.5-14.5) % Plt Count (130-400) K/uL MPV (7.4-10.4) fL Immature Gran % (Auto) % Neut % (Auto) % Lymph % (Auto) % [place] % (Auto) % Eos % (Auto) % Baso % (Auto) % Neut # (Auto) (1.4-6.5) K/uL Lymph # (Auto) (1.2-3.4) K/uL [place] # (Auto) (0.11-0.59) K/uL Eos # (Auto) (0-0.5) K/uL Baso # (Auto) (0-0.2) K/uL Immature Gran # (Auto) (0.00-0.02) K/uL Sodium 139 (136-145) mmol/L Potassium 3.5 (3.5-5.1) mmol/L Chloride 108 H (98-107) mmol/L Carbon Dioxide 22 (21-32) mmol/L Anion Gap 10.0 (3-11) BUN 19 H (7-18) mg/dl Creatinine 0.62 (0.6-1.2) mg/dl Est Cr Clr Drug Dosing 68.4 Est GFR ( Amer) 100.8 ml/min Est GFR (Non-Af Amer) 87.0 ml/min BUN/Creatinine Ratio 30.7 H (10-20) Glucose 92 (70-99) mg/dl POC Glucose 99 141 H (70-99) mg/dl Calcium 8.5 (8.5-10.1) mg/dl Total Bilirubin 0.4 (0.2-1) mg/dl AST 218 H (15-37) U/L ALT 17 (12-78) U/L Alkaline Phosphatase 76 (45-117) U/L Troponin I (0-0.045) ng/ml Total Protein 5.4 L (6.4-8.2) gm/dl Albumin 2.6 L (3.4-5.0) gm/dl Globulin 2.8 (2.5-4.0) gm/dl Albumin/Globulin Ratio 0.9 (0.9-2) TSH (0.300-4.500) uIu/ml Urine Color Urine Appearance (Clear) Urine pH (4.5-7.5) Ur Specific [place] (1.000-1.030) Urine Protein (Negative) Urine Glucose (UA) (Negative) Urine Ketones (Negative) Urine Blood (Negative) Urine Nitrite (Negative) Urine Bilirubin (Negative) Urine Urobilinogen (Negative) Ur Leukocyte Esterase (Negative) Urine WBC (Auto) (0-5) /hpf Urine RBC (Auto) (0-4) /hpf U Hyaline Cast (Auto) (0-5) /lpf U Epithel Cells (Auto) (0-5) /lpf Urine Bacteria (Auto) (Negative) Ur Renal Epithelial Cell Urine Mucus (None Prsent) SARS-CoV-2 (PCR) (Negative) Influ A Molecular Assay (Negative) Influ B Molecular Assay (Negative) 01/14/21 01/14/21 Range/Units 15:22 17:01 WBC (4.8-10.8) K/uL RBC (4.2-5.4) M/uL Hgb (12.0-16.0) g/dL Hct (37-47) % MCV (80-100) fL MCH (25-34) pg MCHC (32-36) g/dL RDW Std Deviation (36.4-46.3) fL RDW Coeff of Sunitha (11.5-14.5) % Plt Count (130-400) K/uL MPV (7.4-10.4) fL Immature Gran % (Auto) % Neut % (Auto) % Lymph % (Auto) % [place] % (Auto) % Eos % (Auto) % Baso % (Auto) % Neut # (Auto) (1.4-6.5) K/uL Lymph # (Auto) (1.2-3.4) K/uL [place] # (Auto) (0.11-0.59) K/uL Eos # (Auto) (0-0.5) K/uL Baso # (Auto) (0-0.2) K/uL Immature Gran # (Auto) (0.00-0.02) K/uL Sodium 139 (136-145) mmol/L Potassium 3.8 (3.5-5.1) mmol/L Chloride 108 H (98-107) mmol/L Carbon Dioxide 23 (21-32) mmol/L Anion Gap 7.0 (3-11) BUN 21 H (7-18) mg/dl Creatinine 0.64 (0.6-1.2) mg/dl Est Cr Clr Drug Dosing 66.2 Est GFR ( Amer) 99.8 ml/min Est GFR (Non-Af Amer) 86.1 ml/min BUN/Creatinine Ratio 33.0 H (10-20) Glucose 140 H (70-99) mg/dl POC Glucose 95 (70-99) mg/dl Calcium 8.7 (8.5-10.1) mg/dl Total Bilirubin 0.4 (0.2-1) mg/dl AST 224 H (15-37) U/L ALT 27 (12-78) U/L Alkaline Phosphatase 91 (45-117) U/L Troponin I (0-0.045) ng/ml Total Protein 5.7 L (6.4-8.2) gm/dl Albumin 2.7 L (3.4-5.0) gm/dl Globulin 3.0 (2.5-4.0) gm/dl Albumin/Globulin Ratio 0.9 (0.9-2) TSH (0.300-4.500) uIu/ml Urine Color Urine Appearance (Clear) Urine pH (4.5-7.5) Ur Specific [place] (1.000-1.030) Urine Protein (Negative) Urine Glucose (UA) (Negative) Urine Ketones (Negative) Urine Blood (Negative) Urine Nitrite (Negative) Urine Bilirubin (Negative) Urine Urobilinogen (Negative) Ur Leukocyte Esterase (Negative) Urine WBC (Auto) (0-5) /hpf Urine RBC (Auto) (0-4) /hpf U Hyaline Cast (Auto) (0-5) /lpf U Epithel Cells (Auto) (0-5) /lpf Urine Bacteria (Auto) (Negative) Ur Renal Epithelial Cell Urine Mucus (None Prsent) SARS-CoV-2 (PCR) (Negative) Influ A Molecular Assay (Negative) Influ B Molecular Assay (Negative) Administered Medications Acetaminophen (Acetaminophen 325 Mg Tab) 650 mg PO Q4H PRN PRN Reason: headache Stop: 02/11/21 22:21 Last Admin: 01/17/21 10:52 Dose: 650 mg Documented by: [id number] Admin: 01/17/21 07:07 Dose: 650 mg Documented by: [id number] Admin: 01/16/21 12:21 Dose: 650 mg Documented by: [id number] Admin: 01/14/21 20:58 Dose: 650 mg Documented by: [id number] Admin: 01/13/21 22:41 Dose: 650 mg Documented by: [id number] Admin: 01/13/21 12:01 Dose: 650 mg Documented by: [id number] Admin: 01/13/21 08:04 Dose: 650 mg Documented by: [id number] Admin: 01/12/21 22:49 Dose: 650 mg Documented by: [id number] Acetaminophen (Acetaminophen 325 Mg Tab) 650 mg PO Q4H PRN PRN Reason: Pain Stop: 02/12/21 10:45 Last Admin: 01/16/21 04:02 Dose: 650 mg Documented by: [id number] Admin: 01/15/21 08:43 Dose: 650 mg Documented by: [id number] Admin: 01/14/21 11:51 Dose: 650 mg Documented by: [id number] Carbidopa/Levodopa (Carbidopa/Levodopa 25/100mg Tab) 3 tab PO BID ABIGAIL Stop: 02/11/21 20:59 Last Admin: 01/17/21 09:42 Dose: 3 tab Documented by: [id number] Admin: 01/16/21 20:19 Dose: 3 tab Documented by: [id number] Admin: 01/16/21 09:51 Dose: 3 tab Documented by: [id number] Admin: 01/15/21 20:35 Dose: 3 tab Documented by: [id number] Admin: 01/15/21 08:40 Dose: 3 tab Documented by: [id number] Admin: 01/14/21 20:51 Dose: 3 tab Documented by: [id number] Admin: 01/14/21 08:33 Dose: 3 tab Documented by: [id number] Admin: 01/13/21 20:25 Dose: 3 tab Documented by: [id number] Admin: 01/13/21 08:07 Dose: 3 tab Documented by: [id number] Admin: 01/12/21 20:30 Dose: 3 tab Documented by: [id number] Cyanocobalamin (Cyanocobalamin 500 Mcg Tablet (Vitamin B-12)) 1,000 mcg PO QAM ABIGAIL Stop: 02/12/21 08:59 Last Admin: 01/17/21 09:42 Dose: 1,000 mcg Documented by: [id number] Admin: 01/16/21 09:51 Dose: 1,000 mcg Documented by: [id number] Admin: 01/15/21 08:40 Dose: 1,000 mcg Documented by: [id number] Admin: 01/14/21 08:33 Dose: 1,000 mcg Documented by: [id number] Admin: 01/13/21 08:06 Dose: 1,000 mcg Documented by: [id number] Diclofenac Sodium (Diclofenac Sod 1% Gel 100 Gm Tube) 2 gm EXT QID ABIGAIL Stop: 02/13/21 20:59 Last Admin: 01/17/21 09:41 Dose: 2 gm Documented by: [id number] Admin: 01/16/21 20:19 Dose: 2 gm Documented by: [id number] Admin: 01/16/21 17:47 Dose: 2 gm Documented by: [id number] Admin: 01/16/21 12:20 Dose: 2 gm Documented by: [id number] Admin: 01/16/21 09:51 Dose: 2 gm Documented by: [id number] Admin: 01/15/21 20:37 Dose: 2 gm Documented by: [id number] Admin: 01/15/21 17:49 Dose: 2 gm Documented by: [id number] Admin: 01/15/21 13:40 Dose: Not Given Documented by: [id number] Admin: 01/15/21 08:40 Dose: 2 gm Documented by: [id number] Admin: 01/14/21 20:52 Dose: 2 gm Documented by: [id number] Dicyclomine HCl (Dicyclomine Hcl 20 Mg Tab) 20 mg PO BID ABIGAIL Stop: 02/11/21 20:59 Last Admin: 01/17/21 09:42 Dose: 20 mg Documented by: [id number] Admin: 01/16/21 20:19 Dose: 20 mg Documented by: [id number] Admin: 01/16/21 09:51 Dose: 20 mg Documented by: [id number] Admin: 01/15/21 20:36 Dose: 20 mg Documented by: [id number] Admin: 01/15/21 08:40 Dose: 20 mg Documented by: [id number] Admin: 01/14/21 20:52 Dose: 20 mg Documented by: [id number] Admin: 01/14/21 08:33 Dose: 20 mg Documented by: [id number] Admin: 01/13/21 20:26 Dose: 20 mg Documented by: [id number] Admin: 01/13/21 08:08 Dose: 20 mg Documented by: [id number] Admin: 01/12/21 20:31 Dose: 20 mg Documented by: [id number] Enalapril Maleate (Enalapril Maleate 10 Mg Tab) 10 mg PO QAM ABIGAIL Stop: 02/12/21 08:59 Last Admin: 01/13/21 08:07 Dose: Not Given Documented by: [id number] Escitalopram Oxalate (Escitalopram Oxalate 10 Mg Tab) 10 mg PO QAM ABIGAIL Stop: 02/12/21 08:59 Last Admin: 01/17/21 09:42 Dose: 10 mg Documented by: [id number] Admin: 01/16/21 09:51 Dose: 10 mg Documented by: [id number] Admin: 01/15/21 08:40 Dose: 10 mg Documented by: [id number] Admin: 01/14/21 08:33 Dose: 10 mg Documented by: [id number] Admin: 01/13/21 08:06 Dose: 10 mg Documented by: [id number] Fluticasone Propionate (Fluticasone Propionate Na Spr 16 Gm Btl) 1 sprays KERRY BID ABIGAIL Stop: 02/11/21 20:59 Last Admin: 01/17/21 09:41 Dose: 1 sprays Documented by: [id number] Admin: 01/16/21 20:19 Dose: 1 sprays Documented by: [id number] Admin: 01/16/21 09:51 Dose: 1 sprays Documented by: [id number] Admin: 01/15/21 20:37 Dose: 1 sprays Documented by: [id number] Admin: 01/15/21 08:41 Dose: 1 sprays Documented by: [id number] Admin: 01/14/21 20:52 Dose: 1 sprays Documented by: [id number] Admin: 01/14/21 08:35 Dose: 1 sprays Documented by: [id number] Admin: 01/13/21 20:26 Dose: 1 sprays Documented by: [id number] Admin: 01/13/21 08:08 Dose: 1 sprays Documented by: [id number] Admin: 01/12/21 20:37 Dose: 1 sprays Documented by: [id number] Heparin Sodium (Porcine) (Heparin Sod 5,000 Unit/0.5 Ml Vial) 5,000 units SQ Q12 REPLACED BY [facility] Stop: 02/11/21 20:59 Last Admin: 01/17/21 09:41 Dose: 5,000 units Documented by: [id number] Admin: 01/16/21 20:19 Dose: 5,000 units Documented by: [id number] Admin: 01/16/21 09:51 Dose: 5,000 units Documented by: [id number] Admin: 01/15/21 20:36 Dose: 5,000 units Documented by: [id number] Admin: 01/15/21 08:41 Dose: 5,000 units Documented by: [id number] Admin: 01/14/21 20:53 Dose: 5,000 units Documented by: [id number] Admin: 01/14/21 08:34 Dose: 5,000 units Documented by: [id number] Admin: 01/13/21 20:27 Dose: 5,000 units Documented by: [id number] Admin: 01/13/21 08:08 Dose: 5,000 units Documented by: [id number] Admin: 01/12/21 20:32 Dose: 5,000 units Documented by: [id number] Insulin Aspart (Insulin Aspart 100 Units/Ml 3 Ml Pen) 0 units SC ACHS ABIGAIL Stop: 02/11/21 20:59 Last Admin: 01/16/21 21:56 Dose: Not Given Documented by: [id number] Admin: 01/16/21 17:41 Dose: Not Given Documented by: [id number] Cosigned by: [id number] Admin: 01/16/21 12:28 Dose: Not Given Documented by: [id number] Cosigned by: [id number] Admin: 01/16/21 09:53 Dose: Not Given Documented by: [id number] Cosigned by: [id number] Admin: 01/15/21 21:28 Dose: Not Given Documented by: [id number] Cosigned by: [id number] Admin: 01/15/21 17:33 Dose: Not Given Documented by: [id number] Cosigned by: [id number] Admin: 01/15/21 12:26 Dose: Not Given Documented by: [id number] Cosigned by: [id number] Admin: 01/15/21 10:05 Dose: Not Given Documented by: [id number] Admin: 01/14/21 20:54 Dose: Not Given Documented by: [id number] Cosigned by: [id number] Admin: 01/14/21 17:57 Dose: Not Given Documented by: [id number] Cosigned by: [id number] Admin: 01/14/21 12:06 Dose: Not Given Documented by: [id number] Cosigned by: [id number] Admin: 01/14/21 08:45 Dose: Not Given Documented by: [id number] Admin: 01/13/21 20:31 Dose: Not Given Documented by: [id number] Cosigned by: [id number] Admin: 01/13/21 17:42 Dose: Not Given Documented by: [id number] Admin: 01/13/21 12:07 Dose: Not Given Documented by: [id number] Admin: 01/13/21 08:01 Dose: Not Given Documented by: [id number] Admin: 01/12/21 20:40 Dose: Not Given Documented by: [id number] Cosigned by: [id number] Lidocaine (Lidocaine 5% 1 Patch) 1 patch TD Q24H ABIGAIL Stop: 02/11/21 19:59 Last Admin: 01/17/21 09:43 Dose: 1 patch Documented by: [id number] Admin: 01/16/21 09:52 Dose: 1 patch Documented by: [id number] Admin: 01/14/21 20:50 Dose: 1 patch Documented by: [id number] Admin: 01/13/21 20:23 Dose: 1 patch Documented by: [id number] Admin: 01/12/21 20:30 Dose: 1 patch Documented by: [id number] Lidocaine (Lidocaine 5% 1 Patch) 1 patch TD QAM REPLACED BY [facility] Stop: 02/12/21 12:29 Last Admin: 01/17/21 09:43 Dose: 1 patch Documented by: [id number] Admin: 01/16/21 09:52 Dose: 1 patch Documented by: [id number] Admin: 01/15/21 08:43 Dose: Not Given Documented by: [id number] Admin: 01/14/21 08:34 Dose: 1 patch Documented by: [id number] Admin: 01/13/21 15:41 Dose: 1 patch Documented by: [id number] Miscellaneous (Remove Lidoderm Patch) 1 ea N/A Q24H REPLACED BY [facility] Stop: 02/12/21 07:59 Last Admin: 01/16/21 21:57 Dose: Not Given Documented by: [id number] Admin: 01/15/21 08:39 Dose: 1 ea Documented by: [id number] Admin: 01/14/21 08:32 Dose: 1 ea Documented by: [id number] Admin: 01/13/21 08:08 Dose: 1 ea Documented by: [id number] Miszaneaneous (Remove Lidoderm Patch) 1 ea N/A DAILY@2100 REPLACED BY [facility] Stop: 02/12/21 20:59 Last Admin: 01/16/21 20:20 Dose: 1 ea Documented by: [id number] Admin: 01/15/21 20:38 Dose: 1 ea Documented by: [id number] Admin: 01/14/21 20:53 Dose: 1 ea Documented by: [id number] Admin: 01/13/21 20:28 Dose: 1 ea Documented by: [id number] Ondansetron HCl (Ondansetron 4 Mg Od Tab) 4 mg PO Q8H PRN PRN Reason: Nausea And Vomiting Stop: 02/11/21 19:24 Last Admin: 01/14/21 11:16 Dose: 4 mg Documented by: [id number] Primidone (Primidone 50 Mg Tab) 100 mg PO BID REPLACED BY [facility] Stop: 02/11/21 20:59 Last Admin: 01/17/21 09:42 Dose: 100 mg Documented by: [id number] Admin: 01/16/21 20:18 Dose: 100 mg Documented by: [id number] Admin: 01/16/21 09:52 Dose: 100 mg Documented by: [id number] Admin: 01/15/21 20:35 Dose: 100 mg Documented by: [id number] Admin: 01/15/21 08:41 Dose: 100 mg Documented by: [id number] Admin: 01/14/21 20:53 Dose: 100 mg Documented by: [id number] Admin: 01/14/21 08:34 Dose: 100 mg Documented by: [id number] Admin: 01/13/21 20:28 Dose: 100 mg Documented by: [id number] Admin: 01/13/21 08:07 Dose: 100 mg Documented by: [id number] Admin: 01/12/21 20:33 Dose: 100 mg Documented by: [id number] Rosuvastatin Calcium (Rosuvastatin Calcium 20 Mg Tab) 20 mg [address] [facility] Stop: 02/11/21 20:59 Last Admin: 01/16/21 20:18 Dose: 20 mg Documented by: [id number] Admin: 01/15/21 20:35 Dose: 20 mg Documented by: [id number] Admin: 01/14/21 20:53 Dose: 20 mg Documented by: [id number] Admin: 01/13/21 20:29 Dose: 20 mg Documented by: [id number] Admin: 01/12/21 20:34 Dose: 20 mg Documented by: [id number] Vitamin D (Cholecalciferol 1,000 Units 25 Mcg Tab) 2,000 units PO [facility] Stop: 02/12/21 08:59 Last Admin: 01/17/21 09:42 Dose: 2,000 units Documented by: [id number] Admin: 01/16/21 09:51 Dose: 2,000 units Documented by: [id number] Admin: 01/15/21 08:42 Dose: 2,000 units Documented by: [id number] Admin: 01/14/21 08:33 Dose: 2,000 units Documented by: [id number] Admin: 01/13/21 08:06 Dose: 2,000 units Documented by: [id number] Discontinued Medications Acetaminophen (Acetaminophen 325 Mg Tab) 650 mg PO NOW STA Stop: 01/12/21 11:37 Last Admin: 01/12/21 12:09 Dose: 650 mg Documented by: [id number] Sodium Chloride (Nss 1000ml) 1,000 mls @ 125 mls/hr IV .Q8H ABIGAIL Stop: 02/11/21 11:44 Last Infusion: 01/12/21 19:37 Dose: 0 mls/hr Documented by: [id number] Admin: 01/12/21 12:13 Dose: 125 mls/hr Documented by: [id number] Ceftriaxone Sodium 1,000 mg/ (Dextrose) 50 mls @ 100 mls/hr IV Q24H ABIGAIL; Protocol Stop: 01/17/21 19:59 Last Infusion: 01/13/21 20:51 Dose: 0 mls/hr Documented by: [id number] Admin: 01/13/21 20:20 Dose: 100 mls/hr Documented by: [id number] Infusion: 01/12/21 20:58 Dose: 0 mls/hr Documented by: [id number] Admin: 01/12/21 20:26 Dose: 100 mls/hr Documented by: [id number] Sodium Chloride (Nss) 500 mls @ 125 mls/hr IV .Q4H ONE Stop: 01/13/21 18:11 Last Infusion: 01/13/21 19:01 Dose: 0 mls/hr Documented by: [id number] Admin: 01/13/21 14:52 Dose: 125 mls/hr Documented by: [id number] Ioversol (Optiray 320 100ml) 92 ml IV ONCE ONE Stop: 01/15/21 16:44 Last Admin: 01/15/21 16:46 Dose: 92 ml Documented by: [id number] Ketorolac Tromethamine (Ketorolac Tromethamine 15 Mg/Ml Vial) 10 mg IV NOW ONE Stop: 01/13/21 11:57 Last Admin: 01/13/21 12:04 Dose: 10 mg Documented by: [id number] Ketorolac Tromethamine (Ketorolac Tromethamine 15 Mg/Ml Vial) 10 mg IV NOW ONE Stop: 01/13/21 23:34 Last Admin: 01/14/21 00:22 Dose: 10 mg Documented by: [id number] Ketorolac Tromethamine (Ketorolac Tromethamine 15 Mg/Ml Vial) 10 mg IV Q6H PRN PRN Reason: Pain Stop: 01/17/21 06:59 Last Admin: 01/16/21 14:55 Dose: 10 mg Documented by: [id number] Admin: 01/16/21 08:30 Dose: 10 mg Documented by: [id number] Admin: 01/16/21 02:33 Dose: 10 mg Documented by: [id number] Admin: 01/15/21 20:44 Dose: 10 mg Documented by: [id number] Admin: 01/15/21 14:55 Dose: 10 mg Documented by: [id number] Admin: 01/15/21 03:52 Dose: 10 mg Documented by: [id number] Admin: 01/14/21 18:40 Dose: 10 mg Documented by: [id number] Admin: 01/14/21 08:27 Dose: 10 mg Documented by: [id number] Polyethylene Glycol (Polyethylene (Miralax) 17 Gm Pack) 17 gm PO DAILY PRN PRN Reason: Constipation Stop: 02/13/21 08:08 Last Admin: 01/16/21 07:52 Dose: 17 gm Documented by: [id number] Admin: 01/14/21 08:43 Dose: 17 gm Documented by: [id number] Sennosides (Senna 8.6 Mg Tab) 8.6 mg PO QAM ABIGAIL Stop: 02/15/21 09:44 Last Admin: 01/17/21 09:43 Dose: 8.6 mg Documented by: [id number] Admin: 01/16/21 12:20 Dose: 8.6 mg Documented by: [id number] Imaging Data Attestation: I personally reviewed and interpreted this imaging study as follows: Radiologist's Impression: Chest X-Ray 01/12/21 11:33 XR chest 1V not portable HISTORY: 75 years-old Female weakness acute weakness COMPARISON: Chest radiograph 08/10/2020 TECHNIQUE: Portable AP view of the chest FINDINGS: Battery packs project over the chest with stimulator leads extending superiorly. The cardiomediastinal and hilar silhouettes are within normal limits. No pneumothorax, pleural effusion, airspace consolidation or overt pulmonary edema. No acute fracture. IMPRESSION: No acute process. ACT 112: Negative or not required by law. The above report was generated using voice recognition software. It may contain grammatical, syntax or spelling errors. Electronically signed by: Jl Levy M.D. 01/12/2021 1:[address] 01/12/21 11:36 CT head/brain wo con CLINICAL HISTORY: 75 years-old Female with Fall, SEVERINO. Acute head injury status post fall TECHNIQUE: Multiple axial CT images of the head were obtained without contrast. A dose lowering technique was utilized adhering to the principles of ALARA. CT DOSE: 614.27 mGy.cm COMPARISON: Head CT 07/13/2018 FINDINGS: No acute intracranial hemorrhage, midline shift, intracranial mass, hydrocephalus, territorial ischemia or abnormal extra-axial collection. Streak artifact from bilateral electrode devices which appear to be in stable positioning, distal tip terminating about the bilateral thalami. 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 Senescent calcifications of the lentiform nuclei. Age-related involutional changes. Minimal ill-defined white matter hypodensities suggest chronic microvascular ischemic disease. The calvarium is intact. Mild mucoperiosteal thickening of the paranasal sinuses. Soft tissues and orbits are unremarkable. IMPRESSION: 1. No acute intracranial abnormality. 2. Chronic findings as above. ACT 112: Negative or not required by law. The above report was generated using voice recognition software. It may contain grammatical, syntax or spelling errors. Electronically signed by: Jl Levy M.D. 01/12/2021 12:28 PM Hip X-Ray 01/12/21 11:59 XR hip RT min 2V HISTORY: 75 years-old Female fall, R hip pain . Acute right hip pain status post fall COMPARISON: None TECHNIQUE: CT abdomen pelvis 07/13/2018 FINDINGS: Mild right hip osteoarthritis. No acute fracture, dislocation, opaque foreign body or avascular necrosis. IMPRESSION: Mild osteoarthritis without acute fracture or dislocation. ACT 112: Negative or not required by law. The above report was generated using voice recognition software. It may contain grammatical, syntax or spelling errors. Electronically signed by: Jl Levy M.D. 01/12/2021 1:35 PM Blood Pressure Blood Pressure Findings: Normal blood pressure Blood Pressure Disposition: did not require urgent referral Discharge Plan Visit Data Chief Complaint: Fall ED Provider: Beatriz Chawla Discharge Problem: Acute UTI, Parkinsons disease, Fall Patient Disposition: Admitted As Inpatient Discharge Instructions Interventions: ED Discharge Assessment Last Done: 01/12/21 17:57 Discharge Problem: Fall Qualifiers: Encounter type: initial encounter Qualified Code(s): W19.XXXA - Unspecified fall, initial encounter
[2021-01-12] MEDS: ACETAMINOPHEN 325 MG TAB PO PRN (22:49)
[2021-01-13] MEDS: INSULIN ASPART 100 UNITS/ML 3 ML PEN SC SCH ×4 (08:01→20:31)
[2021-01-13] MEDS: ACETAMINOPHEN 325 MG TAB PO PRN ×3 (08:04→22:41)
[2021-01-13] MEDS: ESCITALOPRAM OXALATE 10 MG TAB PO SCH (08:06)
[2021-01-13] MEDS: CHOLECALCIFEROL 1,000 UNITS 25 MCG TAB PO SCH (08:06)
[2021-01-13] MEDS: CYANOCOBALAMIN 500 MCG TABLET (VITAMIN B-12) PO SCH (08:06)
[2021-01-13] MEDS: CARBIDOPA/LEVODOPA 25/100MG TAB PO SCH ×2 (08:07→20:25)
[2021-01-13] MEDS: PRIMIDONE 50 MG TAB PO SCH ×2 (08:07→20:28)
[2021-01-13] MEDS: FLUTICASONE PROPIONATE NA SPR 16 GM BTL NAE SCH ×2 (08:08→20:26)
[2021-01-13] MEDS: DICYCLOMINE HCL 20 MG TAB PO SCH ×2 (08:08→20:26)
[2021-01-13] MEDS: HEPARIN SOD 5,000 UNIT/0.5 ML VIAL SQ SCH ×2 (08:08→20:27)
[2021-01-13] MEDS ORDERED: ENALAPRIL MALEATE 10 MG TAB PO SCH (09:00)
[2021-01-13 09:24] LABS: Basophils # (auto) 0.01 K/uL (0-0.2); Basophils % (auto) 0.3 %; Eosinophils # (auto) 0.01 K/uL (0-0.5); Eosinophils % (auto) 0.3 %; Hematocrit (blood only) 35.9 % (37-47); Hemoglobin 12.2 g/dL (12.0-16.0); Lymphocytes # (auto) 0.31 K/uL (1.2-3.4); Lymphocytes % (auto) 9.3 %; Mean Corpuscular Hemoglobin 30.9 pg (25-34); Mean Corpuscular Volume 90.9 fL (80-100); Mean Platelet Volume 10.1 fL (7.4-10.4); Monocytes # (auto) 0.24 K/uL (0.11-0.59); Monocytes % (auto) 7.2 %; Neutrophils # (auto) 2.78 K/uL (1.4-6.5); Neutrophils % (auto) 82.9 %; Platelet Count 123 K/uL (130-400); RDW Coefficient of Variation 13.1 % (11.5-14.5); RDW Standard Deviation 43.7 fL (36.4-46.3); Red Blood Count 3.95 M/uL (4.2-5.4); White Blood Count 3.35 K/uL (4.8-10.8)
[2021-01-13 09:40] LABS: BUN Creatinine Ratio 25.6 (10-20); Blood Urea Nitrogen 18 mg/dl (7-18); Carbon Dioxide 23 mmol/L (21-32); Chloride 104 mmol/L (98-107); Creatinine Clr Calc Pharmacy 60.6 ml/min; Est GFR (African American) 96.9 ml/min; Est GFR (Non-African American) 83.6 ml/min; Glucose 141 mg/dl (70-99); Sodium 137 mmol/L (136-145)
[2021-01-13 09:59] LABS: Troponin I < 0.015 ng/ml (0-0.045)
[2021-01-13] MEDS ORDERED: KETOROLAC TROMETHAMINE 15 MG/ML VIAL IV ONE ×2 (11:56→23:33)
[2021-01-13] MEDS ORDERED: SODIUM CHLORIDE 0.9% 500 ML IV ONE (14:12)
[2021-01-13] MEDS: LIDOCAINE 5% 1 PATCH TD SCH ×2 (15:41→20:23)
--- NOTE | 2021-01-13 17:15 | Hospitalist Progress Note ---
Date of Service January 13, 2021 Assessment & Plan (1) Recurrent urinary tract infection: Plan: IV Rocephin until Urine culture returns - WBC are normal, remains with elevated NLR - Follow culture (2) Fall: Plan: Pt with 2 falls at home that she reported as yesterday. - Imaging negative for acute fractures or process in the cranial vault - No pain to neck/back/his/shoulder or arms - Pain to left rib 4-6 - Lidocaine patch on lateral ribs - Scheduled Tylenol -Gave a single dose of 10 mg of Toradol for pain - PT/OT consult; recommending transfer to rehab facility on discharge. - As per HPI patient lives at home by self (3) Weight loss: Plan: Significant weight loss reported with review of PCP notes - concern of her ability to provider care for herself - nutritional consult with supplemental shakes (4) HTN, goal below 140/90: Plan: -Withheld blood pressure medication as her pressures were running in the 90s over 50s. (5) DM type 2 (diabetes mellitus, type 2): Plan: Patient on Metformin at home -Continue aspart sliding scale at this time with CF 20- 0 carb coverage at this time - Follow her nutritional intake (6) Diastolic murmur: Plan: ECHO 08/12 performed- mitral valve calcification without regurgitation - follow clinically - likely not providing any hemodynamic changes to function (7) Memory loss: Plan: Follow with supportive care -Frequent reorientation (8) Mixed hyperlipidemia: Plan: Continue statin (9) Anxiety: Plan: Continue escitalopram (10) Essential tremor: Plan: patient with parkinsonism with deep brain stimulator in place - Continue primidone - Continue Carbidopa Admission and Anticipated Discharge Date Admission Date: January 12, 2021 Supervising Physician Co-Signing Physician Notes I personally examined the patient and verified all lovell points of history and exam, discussed case, and agree with decision making with Dr Carlton. feeling weak, agrees she was struggling to care for herself at home vitals noted nad heent nc at mmm breathing unlabored no accessory muscles good effort skin no rashes no pallor or icterus weakness - PT/OT eval and treat weight loss - ?likely from poor self care but will need to follow closely and w/u further if does not stabilize/continues UTI - rocephin DVT proph - heparin SQ otherwise as above Subjective Patient was seen at bedside this morning. She is a very quiet person and does not speak loudly or very articulate due to not having teeth in her mouth. She feels pretty sore today describing pain in her left ribs, her lower back, and her abdomen. Otherwise patient feels overall well, however, she is requesting pain medication that is more than just Tylenol and lidocaine patches. She is here for increased number of falls and what appears to be positive UA. She is being treated with Rocephin while cultures are still pending. She denies chest pain, shortness of breath, nausea, vomiting, and fevers. Discussed home diet with her today to find reasoning for her recent unintended weight loss. Patient has very small portions at breakfast and lunch, breakfast consisting of shredded wheat and peanut butter and jelly at lunchtime. For dinner she has frozen meal and wheel meals. Patient does agree that her weight loss is likely due to not feeding herself enough food. Patient has no other complaints at this time. Review of Systems Review of Systems: All systems reviewed & are unremarkable except as noted in HPI & below Physical Exam Constitutional: well developed and well nourished; no acute distress Eyes: PERRL, conjunctivae normal, anicteric sclerae Neck: trachea midline, no thyromegaly Respiratory: normal respiratory effort, lungs clear to auscultation Cardiovascular: RRR, no murmur, no edema Chest (Breasts): Additional Comments: There is some mild ecchymoses on the left ribs at the level of ribs 4 through 6. Gastrointestinal (Abdomen): Inspection/Auscultation: abdomen normal to inspection and normal bowel sounds; abdomen not distended There was suprapubic tenderness. Neurologic: CN's II-XI intact bilaterally Psychiatric: A+Ox3, euthymic affect Results & Data Results & Data ([facility]) Vital Signs (Past 12 Hours) Vital Signs Temp Pulse Resp BP Pulse Ox 01/13/21 15:25 36.9 C 69 16 94/54 L 97 01/13/21 08:18 37.3 C 74 16 94/59 L 96 Resident Activity Tracking Resident Involvement: Resident Care Provided Care Provided: Adult Hospital Medicine
--- NOTE | 2021-01-13 18:15 | Billing Data ---
Date of Service January 13, 2021 Coding Level of Care Code 08881 Subseq Obs Care Lvl 2
[2021-01-13] MEDS: cefTRIAXone SODIUM 1,000 MG in DEXTROSE 5% 50 ML IV SCH (20:20)
[2021-01-13] MEDS: ROSUVASTATIN CALCIUM 20 MG TAB PO SCH (20:29)
--- NOTE | 2021-01-14 05:34 | Electrocardiogram Report ---
Test Reason : Blood Pressure : / mmHG Vent. Rate : 087 BPM Atrial Rate : 087 BPM P-R Int : 134 ms QRS Dur : 070 ms QT Int : 346 ms P-R-T Axes : 069 029 061 degrees QTc Int : 416 ms Poor data quality, interpretation may be adversely affected Normal sinus rhythm Nonspecific ST and T wave abnormality Abnormal ECG When compared with ECG of 10-AUG-2020 17:44, QRS duration has decreased ST more depressed Anterior leads Confirmed by Dennis Weeks ([id number]) on 01/14/2021 5:34:41 AM Referred By: REFERRED SELF Confirmed By:Dennis Weeks
[2021-01-14 08:01] LABS: Albumin Level 2.6 gm/dl (3.4-5.0); BUN Creatinine Ratio 30.7 (10-20); Calcium 8.5 mg/dl (8.5-10.1); Creatinine Clr Calc Pharmacy 68.4 ml/min; Est GFR (African American) 100.8 ml/min; Potassium 3.5 mmol/L (3.5-5.1)
[2021-01-14 08:08] LABS: Albumin Globulin Ratio 0.9 (0.9-2); Bilirubin,Total 0.4 mg/dl (0.2-1); Globulin 2.8 gm/dl (2.5-4.0); Total Protein 5.4 gm/dl (6.4-8.2)
[2021-01-14] MEDS: KETOROLAC TROMETHAMINE 15 MG/ML VIAL IV PRN ×2 (08:27→18:40)
[2021-01-14] MEDS: CARBIDOPA/LEVODOPA 25/100MG TAB PO SCH ×2 (08:33→20:51)
[2021-01-14] MEDS: CYANOCOBALAMIN 500 MCG TABLET (VITAMIN B-12) PO SCH (08:33)
[2021-01-14] MEDS: CHOLECALCIFEROL 1,000 UNITS 25 MCG TAB PO SCH (08:33)
[2021-01-14] MEDS: DICYCLOMINE HCL 20 MG TAB PO SCH ×2 (08:33→20:52)
[2021-01-14] MEDS: ESCITALOPRAM OXALATE 10 MG TAB PO SCH (08:33)
[2021-01-14] MEDS: PRIMIDONE 50 MG TAB PO SCH ×2 (08:34→20:53)
[2021-01-14] MEDS: HEPARIN SOD 5,000 UNIT/0.5 ML VIAL SQ SCH ×2 (08:34→20:53)
[2021-01-14] MEDS: LIDOCAINE 5% 1 PATCH TD SCH ×2 (08:34→20:50)
[2021-01-14] MEDS: FLUTICASONE PROPIONATE NA SPR 16 GM BTL NAE SCH ×2 (08:35→20:52)
[2021-01-14] MEDS: POLYETHYLENE (MIRALAX) 17 GM PACK PO PRN (08:43)
[2021-01-14] MEDS: INSULIN ASPART 100 UNITS/ML 3 ML PEN SC SCH ×4 (08:45→20:54)
[2021-01-14] MEDS: ONDANSETRON 4 MG OD TAB PO PRN (11:16)
[2021-01-14] MEDS: ACETAMINOPHEN 325 MG TAB PO PRN ×2 (11:51→20:58)
--- NOTE | 2021-01-14 14:11 | Hospitalist Progress Note ---
Date of Service January 14, 2021 Assessment & Plan (1) Fall: Plan: Pt with 2 falls at home that she reported as yesterday. - Imaging negative for acute fractures or process in the cranial vault - No pain to neck/back/his/shoulder or arms - Pain to left rib 4-6 - Lidocaine patch on lateral ribs and lower back. - Scheduled Tylenol -Added Toradol 10 mg every 6 hours as needed for pain. - PT/OT consult; recommending transfer to rehab facility on discharge. - As per HPI patient lives at home by self -Awaiting placement for rehab facility. (2) Elevated AST (SGOT): Plan: -Patient has had a progressive increase in AST without elevation in ALT since arrival to the hospital. -Troponin was done on day 1 of admission with a negative result. -Given that the patient is clinically doing well, will trend AST for another day and if there is a continue an elevation consider liver ultrasound. (3) Recurrent urinary tract infection: Plan: Urine cultures did not grow any bacteria. -Rocephin discontinued. (4) Weight loss: Plan: Significant weight loss reported with review of PCP notes - concern of her ability to provider care for herself - nutritional consult with supplemental shakes (5) HTN, goal below 140/90: Plan: -Withheld blood pressure medication as her pressures were running in the 90s over 50s. -Blood pressures have improved with the latest reading being 105/68 at the time of writing this note. (6) DM type 2 (diabetes mellitus, type 2): Plan: Patient on Metformin at home -Continue aspart sliding scale at this time with CF 20- 0 carb coverage at this time - Follow her nutritional intake (7) Diastolic murmur: Plan: ECHO 08/12 performed- mitral valve calcification without regurgitation - follow clinically - likely not providing any hemodynamic changes to function (8) Memory loss: Plan: Follow with supportive care -Frequent reorientation (9) Mixed hyperlipidemia: Plan: Continue statin (10) Anxiety: Plan: Continue escitalopram (11) Essential tremor: Plan: patient with parkinsonism with deep brain stimulator in place - Continue primidone - Continue Carbidopa Admission and Anticipated Discharge Date Admission Date: January 12, 2021 Supervising Physician Co-Signing Physician Notes I personally examined the patient and verified all lovell points of history and exam, discussed case, and agree with decision making with Dr Carlton. ongoing rib pain some - but also L buttock pain vitals noted nad heent nc at mmm breathing unlabored no accessory muscles good effort skin no rashes no pallor or icterus. L piriformis region musculature tender decreased ROM - was unable to do OMT or check presacral skin as she was on bedpan weakness - PT/OT eval and treat, anticipate need for rehab/SNF weight loss - ?likely from poor self care but will need to follow closely and w/u further if does not stabilize/continues - poor PO intake raises more concern that this is the case --> low threshold for appetite stimulant after further review, questionable sx at worst, and negative culture - no UTI - rocephin stopped rib pain - lidocaine patch hip pain - voltaren gel, hopefully can give trial to OMT DVT proph - heparin SQ otherwise as above Subjective Patient seen at bedside this morning. Patient had her teeth in which made it more easy to understand her. Today she states that she does not feel much better than yesterday and she is still sore especially on her left lower back and her ribs both of which are result of her fall 2 days ago. She is asking for pain medication stronger than scheduled Tylenol. Otherwise patient feels that she is doing okay and has no other complaints at this time. She denies chest pain, shortness of breath, nausea, vomiting, or fevers. Review of Systems Review of Systems: All systems reviewed & are unremarkable except as noted in HPI & below Physical Exam Constitutional: well developed and well nourished; no acute distress Eyes: PERRL, conjunctivae normal, anicteric sclerae Neck: trachea midline, no thyromegaly Respiratory: normal respiratory effort, lungs clear to auscultation Cardiovascular: RRR, no murmur, no edema Gastrointestinal (Abdomen): Inspection/Auscultation: abdomen normal to inspection and normal bowel sounds; abdomen not distended Neurologic: CN's II-XI intact bilaterally Psychiatric: A+Ox3, euthymic affect Results & Data Results & Data ([facility]) Vital Signs (Past 12 Hours) Vital Signs Temp Pulse Resp BP Pulse Ox 01/14/21 07:06 36.4 C L 62 20 102/63 100
[2021-01-14 16:22] LABS: Albumin Level 2.7 gm/dl (3.4-5.0); Calcium 8.7 mg/dl (8.5-10.1); Creatinine Clr Calc Pharmacy 66.2 ml/min; Est GFR (African American) 99.8 ml/min; Est GFR (Non-African American) 86.1 ml/min; Potassium 3.8 mmol/L (3.5-5.1)
[2021-01-14 16:25] LABS: Albumin Globulin Ratio 0.9 (0.9-2); Bilirubin,Total 0.4 mg/dl (0.2-1); Total Protein 5.7 gm/dl (6.4-8.2)
--- NOTE | 2021-01-14 17:20 | Billing Data ---
Date of Service January 14, 2021 Coding Level of Care Code 50028 Subseq Hosp Care Lvl 2
[2021-01-14] MEDS: DICLOFENAC SOD 1% GEL 100 GM TUBE EXT SCH (20:52)
[2021-01-14] MEDS: ROSUVASTATIN CALCIUM 20 MG TAB PO SCH (20:53)
[2021-01-15] MEDS: KETOROLAC TROMETHAMINE 15 MG/ML VIAL IV PRN ×3 (03:52→20:44)
[2021-01-15] MEDS: DICLOFENAC SOD 1% GEL 100 GM TUBE EXT SCH ×4 (08:40→20:37)
[2021-01-15] MEDS: ESCITALOPRAM OXALATE 10 MG TAB PO SCH (08:40)
[2021-01-15] MEDS: CARBIDOPA/LEVODOPA 25/100MG TAB PO SCH ×2 (08:40→20:35)
[2021-01-15] MEDS: CYANOCOBALAMIN 500 MCG TABLET (VITAMIN B-12) PO SCH (08:40)
[2021-01-15] MEDS: DICYCLOMINE HCL 20 MG TAB PO SCH ×2 (08:40→20:36)
[2021-01-15] MEDS: PRIMIDONE 50 MG TAB PO SCH ×2 (08:41→20:35)
[2021-01-15] MEDS: HEPARIN SOD 5,000 UNIT/0.5 ML VIAL SQ SCH ×2 (08:41→20:36)
[2021-01-15] MEDS: FLUTICASONE PROPIONATE NA SPR 16 GM BTL NAE SCH ×2 (08:41→20:37)
[2021-01-15] MEDS: CHOLECALCIFEROL 1,000 UNITS 25 MCG TAB PO SCH (08:42)
[2021-01-15] MEDS: ACETAMINOPHEN 325 MG TAB PO PRN (08:43)
[2021-01-15] MEDS: LIDOCAINE 5% 1 PATCH TD SCH (08:43)
--- NOTE | 2021-01-15 09:08 | Hospitalist Progress Note ---
Date of Service January 15, 2021 Assessment & Plan (1) Fall: Plan: Pt with 2 falls at home that she reported as yesterday. - Imaging negative for acute fractures or process in the cranial vault - No pain to neck/back/his/shoulder or arms - Pain to left rib 4-6 and left hip - Lidocaine patch on lateral ribs and lower back. - Scheduled Tylenol -Added Toradol 10 mg every 6 hours as needed for pain. -OMT to the left piriformis performed with mild benefit. - PT/OT consult; recommending transfer to rehab facility on discharge. - As per HPI patient lives at home by self -Awaiting placement for rehab facility. (2) Elevated AST (SGOT): Plan: -Patient has had a progressive increase in AST without elevation in ALT since arrival to the hospital. -Troponin was done on day 1 of admission with a negative result. -Liver ultrasound showed a normal liver, however, there was a mass noted on the pancreas that appeared cystic in nature. We will follow up with pancreas focused CT. (3) Recurrent urinary tract infection: Plan: Urine cultures did not grow any bacteria. -Rocephin discontinued. (4) Weight loss: Plan: Significant weight loss reported with review of PCP notes - concern of her ability to provider care for herself - nutritional consult with supplemental shakes (5) HTN, goal below 140/90: Plan: -Withheld blood pressure medication as her pressures were running in the 90s over 50s. -Blood pressures have improved with the latest reading being 123/73 at the time of writing this note. (6) DM type 2 (diabetes mellitus, type 2): Plan: Patient on Metformin at home -Continue aspart sliding scale at this time with CF 20- 0 carb coverage at this time - Follow her nutritional intake (7) Diastolic murmur: Plan: ECHO 08/12 performed- mitral valve calcification without regurgitation - follow clinically - likely not providing any hemodynamic changes to function (8) Memory loss: Plan: Follow with supportive care -Frequent reorientation (9) Mixed hyperlipidemia: Plan: Continue statin (10) Anxiety: Plan: Continue escitalopram (11) Essential tremor: Plan: patient with parkinsonism with deep brain stimulator in place - Continue primidone - Continue Carbidopa Admission and Anticipated Discharge Date Admission Date: January 14, 2021 Supervising Physician Co-Signing Physician Notes I personally examined the patient and verified all lovell points of history and exam, discussed case, and agree with decision making with Dr Carlton. [id number] present at the bedsidecorroborates the patient was really struggling to take care of herself at home, notes that the real story is probably even less p.o. intake and the patient gave us. Updated to the best my ability. vitals noted nad heent nc at mmm breathing unlabored no accessory muscles good effort skin no rashes no pallor or icterus. no focal neuro deficits. weakness - PT/OT eval and treat, anticipate need for rehab/SNF weight loss with subsequent moderate protein/calorie malnutrition - likely from poor self care, low threshold for appetite stimulant but seems to be eating somewhat better - follow. eval for concerning masses but nothing really seems of overt concern - CT for pancreas lesion but doubt malignant, and even if it is, localized mass would be unlikely to cause 30lbs weight loss after further review, questionable sx at worst, and negative culture - no UTI - rocephin stopped rib pain - lidocaine patch hip pain - voltaren gel, consider trial of OMT but today pain was less localized to piriformis DVT proph - heparin SQ otherwise as above Subjective Patient seen at bedside this morning. Patient states that she is still feeling awful and achy all over. When asking her to point where the pain is bothering her the most she points to her left hip. She feels that Tylenol is not doing anything, but she does not remember receiving her Toradol medication and cannot tell me if it is giving her any benefit. She reports that it is not any better than yesterday. I asked her how physical therapy is going, she does not remember doing physical therapy yesterday even though it was reported that she was sore after doing her exercises yesterday. She denies any nausea, vomiting, shortness of breath, chest pain, or fevers. Patient has no other complaints at this time. Review of Systems Review of Systems: All systems reviewed & are unremarkable except as noted in HPI & below Physical Exam Constitutional: well developed and well nourished; no acute distress Eyes: PERRL, conjunctivae normal, anicteric sclerae Neck: trachea midline, no thyromegaly Respiratory: normal respiratory effort, lungs clear to auscultation Cardiovascular: RRR, no murmur, no edema Gastrointestinal (Abdomen): Inspection/Auscultation: abdomen normal to inspection and normal bowel sounds; abdomen not distended Musculoskeletal: Generally weak. Tenderness to palpation of the left hip. Neurologic: CN's II-XI intact bilaterally Psychiatric: A+Ox3, euthymic affect Results & Data Results & Data ([facility]) Vital Signs (Past 12 Hours) Vital Signs Temp Pulse Pulse Resp BP BP Pulse Ox 01/15/21 07:41 36.6 C 60 16 111/70 98 01/14/21 23:23 36.4 C L 64 16 100/54 L 96
[2021-01-15] MEDS: INSULIN ASPART 100 UNITS/ML 3 ML PEN SC SCH ×4 (10:05→21:28)
--- NOTE | 2021-01-15 10:22 | Ultrasound Report ---
US liver LIMITED ABDOMEN CLINICAL HISTORY: elevated AST. COMPARISON: Noncontrast CT of the abdomen and pelvis from 07/13/2018 TECHNIQUE: Multiple grayscale and color images of the right upper quadrant of the abdomen. FINDINGS: Pancreas: There is a small, sharply defined hypoechoic area within the mid body of the pancreas measu ring 8 x 5 x 7 mm. This is most characteristic of a small cyst. However, is not seen on the previous CT. Therefore, CT of the pancreas without and with contrast with thin section imaging is recommended for further evaluation. Liver: The liver is homogeneous in echogenicity There is no evidence for a focal mass. There is no in trahepatic biliary duct dilatation. Gallbladder: The patient is status post previous cholecystectomy. Common Bile Duct: (CBD): There is physiologic dilatation of the common bile duct related to the pre vious cholecystectomy. It measures 13 mm. Inferior Vena Cava (IVC): The imaged IVC is patent. Right kidney: There is no evidence for hydronephrosis, calculus or gross renal mass. The kidney is n ormal in size. IMPRESSION: 1. Cystic structure within the body of the pancreas which was not identified on the previous noncontr ast CT. Therefore, follow-up CT of the pancreas without and with contrast with thin section imaging i s recommended for further evaluation. 2. Negative liver. This report will be called to the referring clinician. ACT 112: Positive. There are findings on this exam that require communication between the performing entity and the patient following Patient Test Result Information Act ([place] Act 112) guidelines. Electronically signed by: Richard Todd M.D. 01/15/2021 10:20 AM
[2021-01-15] MEDS ORDERED: OPTIRAY 320 100ml IV ONE (16:43)
--- NOTE | 2021-01-15 17:09 | CT Scan Report ---
CT pancreas 3-phase wo/w con HISTORY: Pancreatic cyst. follow up on liver US TECHNIQUE: Multiaxial CT images of the abdomen were performed both before and after the intravenous a dministration of 92 cc of Optiray 320 to evaluate the pancreas. COMPARISON STUDY: Abdomen and pelvis CT 07/13/2018. Abdominal ultrasound 01/15/2021. FINDINGS: There is an 8 mm hypodense lesion within the body of the pancreas on image 128 and a 4 mm h ypodense lesion within the body of the pancreas on image 109. These are totally too small to characte rize but do not appear to enhance. These are adjacent to and may connect to the main pancreatic duct. 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 Small serous cyst adenomas could also a similar appearance. No enhancing pancreatic lesions identified. Prior cholecystectomy. A 7 mm hypodense lesion within the liver is technically too small to character ize but favors a cyst. Prominence of the common bile duct and central intrahepatic bile ducts is like ly due to the patient's postcholecystectomy state. The main portal vein is patent. The spleen, adrena l glands, and right kidney are unremarkable. There is a 6 mm hypodense lesion within the upper pole t he left kidney. This is also technically too small to characterize but favors a cyst. No renal stones or hydronephrosis. Normal caliber abdominal aorta with moderate calcified plaque. No retroperitoneal lymphadenopathy. The visualized loops of bowel show no wall thickening or obstruction. The lung base s are essentially clear. No suspicious lytic or blastic osseous lesions. IMPRESSION: 1. There are 2 similar-appearing subcentimeter hypodense lesions within the pancreas as described abo ve with the largest measuring 8 mm. This corresponds to the prior ultrasound abnormality. These do no t appear to enhance. 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 Small serous cystadenomas could also a similar appearance. Foll ow-up abdominal MRI in one year can be performed to ensure stability. 2. No solid enhancing pancreatic masses. ACT 112: Negative or not required by law. Electronically signed by: Jose Ramon Luis M.D. 01/15/2021 5:08 PM
--- NOTE | 2021-01-15 17:42 | Billing Data ---
Date of Service January 15, 2021 Coding Level of Care Code 56947 Subseq Hosp Care Lvl 3
[2021-01-15] MEDS: ROSUVASTATIN CALCIUM 20 MG TAB PO SCH (20:35)
[2021-01-16] MEDS: KETOROLAC TROMETHAMINE 15 MG/ML VIAL IV PRN ×3 (02:33→14:55)
[2021-01-16] MEDS: ACETAMINOPHEN 325 MG TAB PO PRN ×2 (04:02→12:21)
[2021-01-16] MEDS: POLYETHYLENE (MIRALAX) 17 GM PACK PO PRN (07:52)
--- NOTE | 2021-01-16 09:33 | Hospitalist Progress Note ---
Date of Service January 16, 2021 Assessment & Plan (1) Fall: Plan: Pt with 2 falls at home that she reported as yesterday. - Imaging negative for acute fractures or process in the cranial vault - No pain to neck/back/his/shoulder or arms - Pain to left rib 4-6 and left hip - Lidocaine patch on lateral ribs and lower back. - Scheduled Tylenol -Added Toradol 10 mg every 6 hours as needed for pain. This needs to be discontinued after 01/17. -OMT to the left piriformis performed with mild benefit. Performed Jesse technique of the hip the best ability with patient in bed. - PT/OT consult; recommending transfer to rehab facility on discharge. - As per HPI patient lives at home by self -Awaiting placement for rehab facility. (2) Elevated AST (SGOT): Plan: -Patient has had a progressive increase in AST without elevation in ALT since arrival to the hospital. -Troponin was done on day 1 of admission with a negative result. -Liver ultrasound showed a normal liver, however, there was a mass noted on the pancreas that appeared cystic in nature. Pancreas focused CT revealed 2 cystic lesions on the pancreas. Radiology recommends follow-up MRI in 1 year. (3) Recurrent urinary tract infection: Plan: Urine cultures did not grow any bacteria. -Rocephin discontinued. (4) Weight loss: Plan: Significant weight loss reported with review of PCP notes - concern of her ability to provider care for herself - nutritional consult with supplemental shakes (5) HTN, goal below 140/90: Plan: -Withheld blood pressure medication as her pressures were running in the 90s over 50s. -Blood pressures have improved with the latest reading being 102/64 at the time of writing this note. (6) DM type 2 (diabetes mellitus, type 2): Plan: Patient on Metformin at home -Continue aspart sliding scale at this time with CF 20- 0 carb coverage at this time - Follow her nutritional intake (7) Diastolic murmur: Plan: ECHO 08/12 performed- mitral valve calcification without regurgitation - follow clinically - likely not providing any hemodynamic changes to function (8) Memory loss: Plan: Follow with supportive care -Frequent reorientation (9) Mixed hyperlipidemia: Plan: Continue statin (10) Anxiety: Plan: Continue escitalopram (11) Essential tremor: Plan: patient with parkinsonism with deep brain stimulator in place - Continue primidone - Continue Carbidopa Admission and Anticipated Discharge Date Admission Date: January 14, 2021 Supervising Physician Co-Signing Physician Notes I personally examined the patient and verified all lovell points of history and exam, discussed case, and agree with decision making with Dr Carlton. feeling reasonable. no new complaints. pain about the same / reasonable. vitals noted nad heent nc at mmm breathing unlabored no accessory muscles good effort skin no rashes no pallor or icterus. no focal neuro deficits. weakness - PT/OT eval and treat, anticipate need for rehab/SNF - stable for transfer once bed available weight loss with subsequent moderate protein/calorie malnutrition - likely from poor self care, low threshold for appetite stimulant but seems to be eating somewhat better - follow. encourage PO intake pancreatic lesion - nondescript findings - but favor small side branch IPMN - rec'd f/ uMRI 1 year after further review, questionable sx at worst, and negative culture - no UTI - rocephin stopped rib pain - lidocaine patch hip pain - voltaren gel sacral ulcer/skin ulcers - offloading, local care DVT proph - heparin SQ otherwise as above Subjective Patient seen at bedside this morning. Patient has usual having the complaint of left rib and hip pain although it seems improved as compared to yesterday. Today she is complaining of some abdominal pain and stating how she has not had a bowel movement since the which has been about 6 days. 2 days ago I did begin an order for MiraLAX which she has been taking. She states she has a history of irritable bowel syndrome so it is odd for her not having gone this long. Otherwise patient is doing okay and is having no other complaints at this time. Review of Systems Review of Systems: All systems reviewed & are unremarkable except as noted in HPI & below Physical Exam Constitutional: well developed and well nourished; no acute distress Eyes: PERRL, conjunctivae normal, anicteric sclerae Neck: trachea midline, no thyromegaly Respiratory: normal respiratory effort, lungs clear to auscultation Cardiovascular: RRR, no murmur, no edema Gastrointestinal (Abdomen): Inspection/Auscultation: abdomen normal to inspection and normal bowel sounds; abdomen not distended Neurologic: CN's II-XI intact bilaterally Psychiatric: A+Ox3, euthymic affect Results & Data Results & Data ([facility]) Vital Signs (Past 12 Hours) Vital Signs Temp Pulse Resp BP Pulse Ox 01/16/21 08:23 36.6 C 58 L 17 102/64 97 01/15/21 22:24 36.7 C 70 14 112/70 96
[2021-01-16] MEDS: DICLOFENAC SOD 1% GEL 100 GM TUBE EXT SCH ×4 (09:51→20:19)
[2021-01-16] MEDS: ESCITALOPRAM OXALATE 10 MG TAB PO SCH (09:51)
[2021-01-16] MEDS: CARBIDOPA/LEVODOPA 25/100MG TAB PO SCH ×2 (09:51→20:19)
[2021-01-16] MEDS: CYANOCOBALAMIN 500 MCG TABLET (VITAMIN B-12) PO SCH (09:51)
[2021-01-16] MEDS: CHOLECALCIFEROL 1,000 UNITS 25 MCG TAB PO SCH (09:51)
[2021-01-16] MEDS: FLUTICASONE PROPIONATE NA SPR 16 GM BTL NAE SCH ×2 (09:51→20:19)
[2021-01-16] MEDS: DICYCLOMINE HCL 20 MG TAB PO SCH ×2 (09:51→20:19)
[2021-01-16] MEDS: HEPARIN SOD 5,000 UNIT/0.5 ML VIAL SQ SCH ×2 (09:51→20:19)
[2021-01-16] MEDS: LIDOCAINE 5% 1 PATCH TD SCH ×2 (09:52)
[2021-01-16] MEDS: PRIMIDONE 50 MG TAB PO SCH ×2 (09:52→20:18)
[2021-01-16] MEDS: INSULIN ASPART 100 UNITS/ML 3 ML PEN SC SCH ×4 (09:53→21:56)
[2021-01-16 09:57] LABS: BUN Creatinine Ratio 25.1 (10-20); Calcium 9.2 mg/dl (8.5-10.1); Creatinine Clr Calc Pharmacy 77.1 ml/min; Est GFR (African American) 104.9 ml/min; Est GFR (Non-African American) 90.5 ml/min; Potassium 3.8 mmol/L (3.5-5.1)
[2021-01-16] MEDS: SENNA 8.6 MG TAB PO SCH (12:20)
--- NOTE | 2021-01-16 17:15 | Billing Data ---
Date of Service January 16, 2021 Coding Level of Care Code 38695 Subseq Hosp Care Lvl 2
[2021-01-16] MEDS: ROSUVASTATIN CALCIUM 20 MG TAB PO SCH (20:18)
[2021-01-17] MEDS: ACETAMINOPHEN 325 MG TAB PO PRN ×3 (07:07→16:12)
[2021-01-17] MEDS: DICLOFENAC SOD 1% GEL 100 GM TUBE EXT SCH ×4 (09:41→20:31)
[2021-01-17] MEDS: HEPARIN SOD 5,000 UNIT/0.5 ML VIAL SQ SCH ×2 (09:41→20:31)
[2021-01-17] MEDS: FLUTICASONE PROPIONATE NA SPR 16 GM BTL NAE SCH ×2 (09:41→20:30)
[2021-01-17] MEDS: CYANOCOBALAMIN 500 MCG TABLET (VITAMIN B-12) PO SCH (09:42)
[2021-01-17] MEDS: PRIMIDONE 50 MG TAB PO SCH ×2 (09:42→20:29)
[2021-01-17] MEDS: CARBIDOPA/LEVODOPA 25/100MG TAB PO SCH ×2 (09:42→20:31)
[2021-01-17] MEDS: ESCITALOPRAM OXALATE 10 MG TAB PO SCH (09:42)
[2021-01-17] MEDS: DICYCLOMINE HCL 20 MG TAB PO SCH ×2 (09:42→20:29)
[2021-01-17] MEDS: CHOLECALCIFEROL 1,000 UNITS 25 MCG TAB PO SCH (09:42)
[2021-01-17] MEDS: LIDOCAINE 5% 1 PATCH TD SCH ×2 (09:43)
[2021-01-17] MEDS: SENNA 8.6 MG TAB PO SCH (09:43)
[2021-01-17] MEDS ORDERED: SENNA 8.6 MG TAB PO SCH ×2 (10:00→21:00)
[2021-01-17] MEDS: INSULIN ASPART 100 UNITS/ML 3 ML PEN SC SCH ×4 (11:26→21:16)
[2021-01-17] MEDS: IBUPROFEN 600 MG TAB PO PRN ×2 (12:01→17:54)
--- NOTE | 2021-01-17 15:01 | Hospitalist Progress Note ---
Date of Service January 17, 2021 Assessment & Plan (1) Fall: Plan: Pt with 2 falls at home that she reported as yesterday. - Imaging negative for acute fractures or process in the cranial vault - No pain to neck/back/his/shoulder or arms - Pain to left rib 4-6 and left hip - Lidocaine patch on lateral ribs and lower back. - Scheduled Tylenol -Toradol discontinued as this is day 5. Added Motrin 600 mg every 6 hours as needed. -OMT to the left piriformis performed with mild benefit. Performed Jesse technique of the hip the best ability with patient in bed. - PT/OT consult; recommending transfer to rehab facility on discharge. - As per HPI patient lives at home by self -Awaiting placement for rehab facility. (2) Constipation: Plan: Patient's last known bowel movement was on January 10 -Patient has had adequate caloric intake, should be producing stool. -Currently on scheduled a.m. MiraLAX and senna tab twice daily. -If no bowel movement by tomorrow morning, going to add Dulcolax suppository. (3) Elevated AST (SGOT): Plan: -Patient has had a progressive increase in AST without elevation in ALT since arrival to the hospital. -Troponin was done on day 1 of admission with a negative result. -Liver ultrasound showed a normal liver, however, there was a mass noted on the pancreas that appeared cystic in nature. Pancreas focused CT revealed 2 cystic lesions on the pancreas. Radiology recommends follow-up MRI in 1 year. -No longer monitoring (4) Recurrent urinary tract infection: Plan: Urine cultures did not grow any bacteria. -Rocephin discontinued. (5) Weight loss: Plan: Significant weight loss reported with review of PCP notes - concern of her ability to provider care for herself - nutritional consult with supplemental shakes (6) HTN, goal below 140/90: Plan: -Withheld blood pressure medication as her pressures were running in the 90s over 50s. -Blood pressures have improved with the latest reading being 101/63 at the time of writing this note. (7) DM type 2 (diabetes mellitus, type 2): Plan: Patient on Metformin at home -Continue aspart sliding scale at this time with CF 20- 0 carb coverage at this time - Follow her nutritional intake (8) Diastolic murmur: Plan: ECHO 08/12 performed- mitral valve calcification without regurgitation - follow clinically - likely not providing any hemodynamic changes to function (9) Memory loss: Plan: Follow with supportive care -Frequent reorientation (10) Mixed hyperlipidemia: Plan: Continue statin (11) Anxiety: Plan: Continue escitalopram (12) Essential tremor: Plan: patient with parkinsonism with deep brain stimulator in place - Continue primidone - Continue Carbidopa Admission and Anticipated Discharge Date Admission Date: January 14, 2021 Supervising Physician Co-Signing Physician Notes I personally examined the patient and verified all lovell points of history and exam, discussed case, and agree with decision making with Dr Carlton. feeling reasonable. no new complaints. pain about the same and feels like not as well controlled vitals noted nad heent nc at mmm breathing unlabored no accessory muscles good effort skin no rashes no pallor or icterus. no focal neuro deficits. weakness - PT/OT eval and treat, anticipate need for rehab/SNF - stable for transfer once bed available, still awaiting availability weight loss with subsequent moderate protein/calorie malnutrition - likely from poor self care, low threshold for appetite stimulant but follow for now. encourage PO intake pancreatic lesion - nondescript findings - but favor small side branch IPMN - rec'd f/ uMRI 1 year after further review, questionable sx at worst, and negative culture - no UTI - rocephin stopped rib pain - lidocaine patch hip pain - voltaren gel for overall pain - scheduled tylneol, ibuprofen prn. mobilize. d/w pt concern on escalating further due to potential for sedation/delirium w narcotics/etc sacral ulcer/skin ulcers - offloading, local care DVT proph - heparin SQ otherwise as above Subjective Patient seen at bedside today. Patient's rib and hip pain has improved to the point that she does not complain of it today, however, she does still complain of gluteal/sacral pain. Yesterday was her last day for Toradol, so she is only on scheduled Tylenol for pain management at this time with lidocaine patches and topical diclofenac. She continually complains that this is enough to cover her pain. Otherwise patient still has not had a bowel movement which she finds very odd as she typically has loose stools. Her last known bowel movement was on January 10. Otherwise patient has no other complaints at this time. Review of Systems Review of Systems: All systems reviewed & are unremarkable except as noted in HPI & below Physical Exam Constitutional: well developed and well nourished; no acute distress Eyes: PERRL, conjunctivae normal, anicteric sclerae Neck: trachea midline, no thyromegaly Respiratory: normal respiratory effort, lungs clear to auscultation Cardiovascular: RRR, no murmur, no edema Musculoskeletal: Pain to palpation of left glute with some radiation down the ipsilateral leg. Neurologic: CN's II-XI intact bilaterally Psychiatric: A+Ox3, euthymic affect Results & Data Results & Data ([facility]) Vital Signs (Past 12 Hours) Vital Signs Temp Pulse Resp BP Pulse Ox 01/17/21 08:22 36.4 C L 60 16 101/63 96
--- NOTE | 2021-01-17 17:48 | Billing Data ---
Date of Service January 17, 2021 Coding Level of Care Code 14802 Subseq Hosp Care Lvl 2
[2021-01-17] MEDS: ACETAMINOPHEN 325 MG TAB PO SCH (17:55)
[2021-01-17] MEDS: ROSUVASTATIN CALCIUM 20 MG TAB PO SCH (20:29)
[2021-01-18] MEDS: ACETAMINOPHEN 325 MG TAB PO SCH ×5 (00:13→23:50)
[2021-01-18] MEDS ORDERED: bisacodyL 10 MG SUPP PR STA (08:52)
[2021-01-18] MEDS: HEPARIN SOD 5,000 UNIT/0.5 ML VIAL SQ SCH ×2 (09:38→21:25)
[2021-01-18] MEDS: INSULIN ASPART 100 UNITS/ML 3 ML PEN SC SCH ×4 (09:39→21:54)
[2021-01-18] MEDS: DICLOFENAC SOD 1% GEL 100 GM TUBE EXT SCH ×4 (09:40→21:26)
[2021-01-18] MEDS: LIDOCAINE 5% 1 PATCH TD SCH ×2 (09:40)
[2021-01-18] MEDS: POLYETHYLENE (MIRALAX) 17 GM PACK PO SCH (09:40)
[2021-01-18] MEDS: CHOLECALCIFEROL 1,000 UNITS 25 MCG TAB PO SCH (09:41)
[2021-01-18] MEDS: PRIMIDONE 50 MG TAB PO SCH ×2 (09:41→21:24)
[2021-01-18] MEDS: SENNA 8.6 MG TAB PO SCH (09:41)
[2021-01-18] MEDS: CYANOCOBALAMIN 500 MCG TABLET (VITAMIN B-12) PO SCH (09:41)
[2021-01-18] MEDS: ESCITALOPRAM OXALATE 10 MG TAB PO SCH (09:41)
[2021-01-18] MEDS: IBUPROFEN 600 MG TAB PO PRN (09:41)
[2021-01-18] MEDS: FLUTICASONE PROPIONATE NA SPR 16 GM BTL NAE SCH ×2 (09:41→21:25)
[2021-01-18] MEDS: DICYCLOMINE HCL 20 MG TAB PO SCH ×2 (09:41→21:24)
[2021-01-18] MEDS: CARBIDOPA/LEVODOPA 25/100MG TAB PO SCH ×2 (09:41→21:24)
[2021-01-18] MEDS ORDERED: IBUPROFEN 800 MG TAB PO PRN (13:46)
--- NOTE | 2021-01-18 13:50 | Hospitalist Progress Note ---
Date of Service January 18, 2021 Assessment & Plan (1) Fall: Plan: Pt with 2 falls at home that she reported as yesterday. - Imaging negative for acute fractures or process in the cranial vault - No pain to neck/back/his/shoulder or arms - Pain to left rib 4-6 and left hip - Lidocaine patch on lateral ribs and lower back. - Scheduled Tylenol -Toradol discontinued as this is day 5. -OMT to the left piriformis performed with mild benefit. Performed Jesse technique of the hip the best ability with patient in bed. -Patient received a one-time dose of morphine 1 mg IV today due to distress pain was causing patient. -X-rays ordered of the pelvis and sacrum ordered today revealed coccygeal fracture. Motrin D/C'd. Started tramadol prn. - PT/OT consult; recommending transfer to rehab facility on discharge. - As per HPI patient lives at home by self -Awaiting placement for rehab facility. (2) Constipation: Plan: Patient's last known bowel movement was on January 10 -Patient has had adequate caloric intake, should be producing stool. -Currently on scheduled a.m. MiraLAX and senna tab twice daily. -If no bowel movement by tomorrow morning, going to add Dulcolax suppository. (3) Elevated AST (SGOT): Plan: -Patient has had a progressive increase in AST without elevation in ALT since arrival to the hospital. -Troponin was done on day 1 of admission with a negative result. -Liver ultrasound showed a normal liver, however, there was a mass noted on the pancreas that appeared cystic in nature. Pancreas focused CT revealed 2 cystic lesions on the pancreas. Radiology recommends follow-up MRI in 1 year. -No longer monitoring (4) Recurrent urinary tract infection: Plan: Urine cultures did not grow any bacteria. -Rocephin discontinued. (5) Weight loss: Plan: Significant weight loss reported with review of PCP notes - concern of her ability to provider care for herself - nutritional consult with supplemental shakes (6) HTN, goal below 140/90: Plan: -Withheld blood pressure medication as her pressures were running in the 90s over 50s. -Blood pressures have improved with the latest reading being 101/63 at the time of writing this note. (7) DM type 2 (diabetes mellitus, type 2): Plan: Patient on Metformin at home -Continue aspart sliding scale at this time with CF 20- 0 carb coverage at this time - Follow her nutritional intake (8) Diastolic murmur: Plan: ECHO 08/12 performed- mitral valve calcification without regurgitation - follow clinically - likely not providing any hemodynamic changes to function (9) Memory loss: Plan: Follow with supportive care -Frequent reorientation (10) Mixed hyperlipidemia: Plan: Continue statin (11) Anxiety: Plan: Continue escitalopram (12) Essential tremor: Plan: patient with parkinsonism with deep brain stimulator in place - Continue primidone - Continue Carbidopa Admission and Anticipated Discharge Date Admission Date: January 14, 2021 Supervising Physician Co-Signing Physician Notes I personally examined the patient and verified all lovell points of history and exam, discussed case, and agree with decision making with Dr Carlton. feeling reasonable. no new complaints. Pain continues to be uncontrolled. Ordered x ray of pelvis which revealed a coccygeal fracture. This is noted on the lateral projection. weakness - PT/OT eval and treat, anticipate need for rehab/SNF - stable for transfer once bed available, still awaiting availability weight loss with subsequent moderate protein/calorie malnutrition - likely from poor self care, low threshold for appetite stimulant but follow for now. encourage PO intake pancreatic lesion - nondescript findings - but favor small side branch IPMN - rec'd f/ uMRI 1 year after further review, questionable sx at worst, and negative culture - no UTI - rocephin stopped rib pain - lidocaine patch hip pain - voltaren , will order tramadol. morphine is held due to possible allergy for overall pain - scheduled tylneol, ibuprofen prn, orered tramadol. mobilize. d/w pt concern on escalating further due to potential for sedation/delirium w narcotics/etc sacral ulcer/skin ulcers - offloading, local care DVT proph - heparin SQ otherwise as above Subjective Patient seen at bedside this morning. Patient was enjoying breakfast prior to my arrival. Reports no new complaints today. Still having sacral/gluteal pain that has not been improving. Otherwise her rib and hip pain have improved fairly well. Patient did not have a bowel movement since yesterday, however, after seeing her an order for Dulcolax was placed and she had a large bowel movement shortly after. She would like some additional pain medication, but it was explained to her that she can no longer take Toradol as she was on it for 5 days and we do not want to risk worsening her constipation with an opiate as well as her age being 75. Later in the day, per nurse, patient asked for the window to be open so she could jump outside because her pain was bothering her so much. She threatened that she was going to call her son" and ask him to bring a gun". Review of Systems Review of Systems: All systems reviewed & are unremarkable except as noted in HPI & below Physical Exam Constitutional: well developed and well nourished; no acute distress Eyes: PERRL, conjunctivae normal, anicteric sclerae Neck: trachea midline, no thyromegaly Respiratory: normal respiratory effort, lungs clear to auscultation Cardiovascular: RRR, no murmur, no edema Gastrointestinal (Abdomen): Inspection/Auscultation: abdomen normal to inspection and normal bowel sounds; abdomen not distended Neurologic: CN's II-XI intact bilaterally Psychiatric: A+Ox3, euthymic affect Results & Data Results & Data ([facility]) Vital Signs (Past 12 Hours) Vital Signs Temp Pulse Resp BP Pulse Ox 01/18/21 07:54 36.9 C 57 L 16 100/61 96
[2021-01-18] MEDS ORDERED: traMADol HCL 50 MG TABLET PO STA (14:57)
--- NOTE | 2021-01-18 15:21 | XRay Report ---
SINGLE VIEW PELVIS CLINICAL HISTORY: Fall. Pelvic pain. FINDINGS: An AP view of the pelvis is correlated with pelvic CT dated 07/13/2018. The skeletal structu res are osteopenic. There is no radiographic evidence of acute fracture involving the hips or bony pe lvis. Mild degenerative change is noted in the hips. Minimal degenerative sclerosis is seen in the sa croiliac joints. The overlying soft tissues are normal as visualized. Phleboliths are seen in the pel vis. There is no bowel obstruction. IMPRESSION: No acute bony abnormality is identified Electronically signed by: Julio C Rodriguez M.D. 01/18/2021 3:19 PM
--- NOTE | 2021-01-18 15:25 | XRay Report ---
SACRUM AND COCCYX 3 VIEWS CLINICAL HISTORY: Fall. Sacral pain. FINDINGS: 3 views of the sacrum and coccyx are correlated with pelvic CT dated 07/13/2018. The skeleta l structures are osteopenic. A coccygeal fracture is seen on the lateral projection. No additional fr acture is identified. Mild degenerative sclerosis is noted in the sacroiliac joints. The imaged bony pelvis appears intact. Phleboliths are noted. IMPRESSION: A coccygeal fracture is noted on the lateral projection. Electronically signed by: Julio C Rodriguez M.D. 01/18/2021 3:24 PM
--- NOTE | 2021-01-18 19:29 | Billing Data ---
Date of Service January 18, 2021 Coding Level of Care Code 99673 Subseq Hosp Care Lvl 2
[2021-01-18] MEDS: BACLOFEN 10 MG TAB PO SCH (21:22)
[2021-01-18] MEDS: ROSUVASTATIN CALCIUM 20 MG TAB PO SCH (21:25)
[2021-01-19] MEDS: ACETAMINOPHEN 325 MG TAB PO SCH ×4 (05:56→23:35)
[2021-01-19] MEDS: traMADol HCL 50 MG TABLET PO PRN ×3 (06:27→13:54)
[2021-01-19] MEDS ORDERED: ONDANSETRON INJ 2 MG/ML 2 ML VIAL IV PRN (08:33)
[2021-01-19] MEDS: ONDANSETRON 4 MG OD TAB PO PRN (08:41)
[2021-01-19] MEDS: INSULIN ASPART 100 UNITS/ML 3 ML PEN SC SCH ×4 (08:43→20:32)
[2021-01-19] MEDS: ESCITALOPRAM OXALATE 10 MG TAB PO SCH (08:44)
[2021-01-19] MEDS: CYANOCOBALAMIN 500 MCG TABLET (VITAMIN B-12) PO SCH (08:45)
[2021-01-19] MEDS: SENNA 8.6 MG TAB PO SCH (08:45)
[2021-01-19] MEDS: HEPARIN SOD 5,000 UNIT/0.5 ML VIAL SQ SCH ×2 (08:46→20:19)
[2021-01-19] MEDS: PRIMIDONE 50 MG TAB PO SCH ×2 (08:46→20:18)
[2021-01-19] MEDS: BACLOFEN 10 MG TAB PO SCH ×3 (08:47→20:18)
[2021-01-19] MEDS: DICLOFENAC SOD 1% GEL 100 GM TUBE EXT SCH ×4 (08:47→20:18)
[2021-01-19] MEDS: CARBIDOPA/LEVODOPA 25/100MG TAB PO SCH ×2 (08:47→20:18)
[2021-01-19] MEDS: LIDOCAINE 5% 1 PATCH TD SCH ×2 (08:48→08:53)
[2021-01-19] MEDS: FLUTICASONE PROPIONATE NA SPR 16 GM BTL NAE SCH ×2 (08:49→20:17)
[2021-01-19] MEDS: POLYETHYLENE (MIRALAX) 17 GM PACK PO SCH (08:53)
[2021-01-19] MEDS: CHOLECALCIFEROL 1,000 UNITS 25 MCG TAB PO SCH (08:56)
[2021-01-19] MEDS: DICYCLOMINE HCL 20 MG TAB PO SCH ×2 (09:44→20:17)
--- NOTE | 2021-01-19 12:59 | Hospitalist Progress Note ---
Date of Service January 19, 2021 Assessment & Plan (1) Fall: Plan: Pt with 2 falls at home that she reported as yesterday. - Imaging negative for acute fractures or process in the cranial vault - No pain to neck/back/his/shoulder or arms - Pain to left rib 4-6 and left hip - Lidocaine patch on lateral ribs and lower back. - Scheduled Tylenol -Toradol discontinued as this is day 5. -OMT to the left piriformis performed with mild benefit. Performed Jesse technique of the hip the best ability with patient in bed. -Patient received a one-time dose of morphine 1 mg IV today due to distress pain was causing patient. -X-rays ordered of the pelvis and sacrum ordered today revealed coccygeal fracture. Motrin D/C'd. Started tramadol prn. - PT/OT consult; recommending transfer to rehab facility on discharge. - As per HPI patient lives at home by self -Awaiting placement for rehab facility. (2) Constipation: Plan: -Patient had 2 bowel movements yesterday. Resolved. (3) Nausea: Plan: -Unknown etiology at this time. -Last known QTC was 419, ordered Zofran as needed for nausea. (4) Elevated AST (SGOT): Plan: -Patient has had a progressive increase in AST without elevation in ALT since arrival to the hospital. -Troponin was done on day 1 of admission with a negative result. -Liver ultrasound showed a normal liver, however, there was a mass noted on the pancreas that appeared cystic in nature. Pancreas focused CT revealed 2 cystic lesions on the pancreas. Radiology recommends follow-up MRI in 1 year. -No longer monitoring (5) Recurrent urinary tract infection: Plan: Urine cultures did not grow any bacteria. -Rocephin discontinued. (6) Weight loss: Plan: Significant weight loss reported with review of PCP notes - concern of her ability to provider care for herself - nutritional consult with supplemental shakes (7) HTN, goal below 140/90: Plan: -Withheld blood pressure medication as her pressures were running in the 90s over 50s. -Blood pressures have improved with the latest reading being 101/63 at the time of writing this note. (8) DM type 2 (diabetes mellitus, type 2): Plan: Patient on Metformin at home -Continue aspart sliding scale at this time with CF 20- 0 carb coverage at this time - Follow her nutritional intake (9) Diastolic murmur: Plan: ECHO 08/12 performed- mitral valve calcification without regurgitation - follow clinically - likely not providing any hemodynamic changes to function (10) Memory loss: Plan: Follow with supportive care -Frequent reorientation (11) Mixed hyperlipidemia: Plan: Continue statin (12) Anxiety: Plan: Continue escitalopram (13) Essential tremor: Plan: patient with parkinsonism with deep brain stimulator in place - Continue primidone - Continue Carbidopa Admission and Anticipated Discharge Date Admission Date: January 14, 2021 Supervising Physician Co-Signing Physician Notes I personally examined the patient and verified all lovell points of history and exam, discussed case, and agree with decision making with Dr Carlton. feeling reasonable. no new complaints. Pain continues to be uncontrolled. Ordered x ray of pelvis which revealed a coccygeal fracture. This is noted on the lateral projection. continue pain control. weakness - PT/OT eval and treat, anticipate need for rehab/SNF - stable for transfer once bed available, still awaiting availability weight loss with subsequent moderate protein/calorie malnutrition - likely from poor self care, low threshold for appetite stimulant but follow for now. encourage PO intake pancreatic lesion - nondescript findings - but favor small side branch IPMN - rec'd f/ uMRI 1 year after further review, questionable sx at worst, and negative culture - no UTI - rocephin stopped rib pain - lidocaine patch hip pain - voltaren , will order tramadol. morphine is held due to possible allergy for overall pain - scheduled tylneol, ibuprofen prn, orered tramadol. mobilize. d/w pt concern on escalating further due to potential for sedation/delirium w narcotics/etc sacral ulcer/skin ulcers - offloading, local care DVT proph - heparin SQ otherwise as above Subjective Patient seen at bedside this morning. Patient has a complaint of nausea in addition to her regular complaint of sacral pain. Patient is unsure if it has to do with not eating breakfast yet. Patient does state that her pain is improved from the past few days thanks to the tramadol. Patient had large bowel movement yesterday with a smaller one shortly after. Patient has no other complaints at this time. Review of Systems Review of Systems: All systems reviewed & are unremarkable except as noted in HPI & below Physical Exam Constitutional: well developed and well nourished; no acute distress Eyes: + anicteric sclerae Neck: normal visual inspection and trachea midline Respiratory: normal respiratory effort, lungs clear to auscultation Cardiovascular: Rate/Rhythm: regular rate and regular rhythm Heart Sounds: + murmur Gastrointestinal (Abdomen): normal bowel sounds, soft, nontender, no hepatosplenomegaly Skin: no rashes, warm and dry Psychiatric: A+Ox3, euthymic affect Results & Data Results & Data ([facility]) Vital Signs (Past 12 Hours) Vital Signs Temp Pulse Resp BP Pulse Ox 01/19/21 07:32 36.6 C 58 L 16 105/55 L 95
[2021-01-19] MEDS: ROSUVASTATIN CALCIUM 20 MG TAB PO SCH (20:18)
--- NOTE | 2021-01-19 20:54 | Billing Data ---
Date of Service January 19, 2021 Coding Level of Care Code 99244 Subseq Hosp Care Lvl 2
[2021-01-20] MEDS: ACETAMINOPHEN 325 MG TAB PO SCH ×4 (05:38→23:54)
[2021-01-20] MEDS: traMADol HCL 50 MG TABLET PO PRN ×2 (08:36→14:01)
[2021-01-20] MEDS: INSULIN ASPART 100 UNITS/ML 3 ML PEN SC SCH ×4 (08:50→20:35)
[2021-01-20] MEDS: FLUTICASONE PROPIONATE NA SPR 16 GM BTL NAE SCH ×2 (08:51→19:56)
[2021-01-20] MEDS: DICYCLOMINE HCL 20 MG TAB PO SCH ×2 (08:52→19:55)
[2021-01-20] MEDS: CARBIDOPA/LEVODOPA 25/100MG TAB PO SCH ×2 (08:53→19:53)
[2021-01-20] MEDS: CYANOCOBALAMIN 500 MCG TABLET (VITAMIN B-12) PO SCH (08:53)
[2021-01-20] MEDS: CHOLECALCIFEROL 1,000 UNITS 25 MCG TAB PO SCH (08:54)
[2021-01-20] MEDS: ESCITALOPRAM OXALATE 10 MG TAB PO SCH (08:54)
[2021-01-20] MEDS: BACLOFEN 10 MG TAB PO SCH ×3 (08:55→19:58)
[2021-01-20] MEDS: PRIMIDONE 50 MG TAB PO SCH ×2 (08:56→19:54)
[2021-01-20] MEDS: SENNA 8.6 MG TAB PO SCH (08:57)
[2021-01-20] MEDS: HEPARIN SOD 5,000 UNIT/0.5 ML VIAL SQ SCH ×2 (08:58→20:00)
[2021-01-20] MEDS: DICLOFENAC SOD 1% GEL 100 GM TUBE EXT SCH ×4 (09:03→19:55)
[2021-01-20] MEDS: LIDOCAINE 5% 1 PATCH TD SCH ×2 (09:05→13:44)
[2021-01-20] MEDS: POLYETHYLENE (MIRALAX) 17 GM PACK PO SCH (09:07)
--- NOTE | 2021-01-20 15:01 | Hospitalist Progress Note ---
Date of Service January 20, 2021 Assessment & Plan (1) Fall: Plan: Pt with 2 falls at home that she reported as yesterday. - Imaging negative for acute fractures or process in the cranial vault - No pain to neck/back/his/shoulder or arms - Pain to left rib 4-6 and left hip - Lidocaine patch on lateral ribs and lower back. - Scheduled Tylenol -Toradol discontinued as this is day 5. -OMT to the left piriformis performed with mild benefit. Performed Jesse technique of the hip the best ability with patient in bed. -Patient received a one-time dose of morphine 1 mg IV today due to distress pain was causing patient. -X-rays ordered of the pelvis and sacrum revealed coccygeal fracture. Motrin D/C'd. Has tramadol as needed - PT/OT consult; recommending transfer to rehab facility on discharge. - As per HPI patient lives at home by self -Awaiting placement for rehab facility. (2) Chest pain: Plan: Patient had episode of left-sided chest pain began on 01/20 -Seems atypical in nature. Reproducible with palpation. -EKG performed at bedside was unable to be interpreted due to interference from deep brain stimulus nodes. -As patient has difficult time answering questions, serial troponin was ordered to rule out cardiac etiology. Initial troponin was negative. -If serial troponin shows positive or uptrending, consider consulting cardiology. (3) Constipation: Plan: -Patient had 2 bowel movements yesterday. Resolved. (4) Nausea: Plan: -Unknown etiology at this time. -Last known QTC was 419, ordered Zofran as needed for nausea. (5) Elevated AST (SGOT): Plan: -Patient has had a progressive increase in AST without elevation in ALT since arrival to the hospital. -Troponin was done on day 1 of admission with a negative result. -Liver ultrasound showed a normal liver, however, there was a mass noted on the pancreas that appeared cystic in nature. Pancreas focused CT revealed 2 cystic lesions on the pancreas. Radiology recommends follow-up MRI in 1 year. -No longer monitoring (6) Recurrent urinary tract infection: Plan: Urine cultures did not grow any bacteria. -Rocephin discontinued. (7) Weight loss: Plan: Significant weight loss reported with review of PCP notes - concern of her ability to provider care for herself - nutritional consult with supplemental shakes (8) HTN, goal below 140/90: Plan: -Withheld blood pressure medication as her pressures were running in the 90s over 50s. -Blood pressures have improved with the latest reading being 101/63 at the time of writing this note. (9) DM type 2 (diabetes mellitus, type 2): Plan: Patient on Metformin at home -Continue aspart sliding scale at this time with CF 20- 0 carb coverage at this time - Follow her nutritional intake (10) Diastolic murmur: Plan: ECHO 08/12 performed- mitral valve calcification without regurgitation - follow clinically - likely not providing any hemodynamic changes to function (11) Memory loss: Plan: Follow with supportive care -Frequent reorientation (12) Mixed hyperlipidemia: Plan: Continue statin (13) Anxiety: Plan: Continue escitalopram (14) Essential tremor: Plan: patient with parkinsonism with deep brain stimulator in place - Continue primidone - Continue Carbidopa Admission and Anticipated Discharge Date Admission Date: January 14, 2021 Supervising Physician Co-Signing Physician Notes I also saw the patient with the resident physician confirmed lovell portions of the history and physical examination. I agree with the impression and plan as noted in the resident documentation. Call bedside to see the patient this morning when she expressed sensation of chest pain to the nurse. On exam, she is hemodynamically stable, no distress appreciated. She did have a reproducible chest wall tenderness. Unfortunately EKG was essentially nondiagnostic due to interference from her stimulator (Parkinson's disease). Additionally, she is unable to answer questions completely, but from the best I can tell, the tenderness she had with my palpation was the same discomfort she was experiencing. Initial troponin was less than 0.015. Exam 112/67, 64, 18, 36.5, 96% on room air No acute distress Heart regular rate and rhythm Lungs clear with nonlabored respirations Tenderness along the left sternal and intercostal spaces with palpation. Stimulators for her Parkinson's disease are palpable in the anterior chest wall as well. Assessment and plan Chest wall pain Do not think this is cardiac related, other limitations including patient's condition and EKG We will check troponin now and in 6 hours; overall, suspicion is low. Else per resident documentation. Subjective Patient seen at bedside this morning. When initially seen the patient she had no acute complaints other than her continual sacral pain due to a coccygeal fracture. Otherwise was doing well. About an hour later, at 11 AM, patient developed left-sided chest pain. Pain was atypical in nature and that it did not line up with exertion and did occur after eating a meal. Of note patient has 2 deep brain stimulus nodes in her chest. The pain seems to be coming around the periphery of the left node as well as under her left breast. Hard to get information as to describing the pain as when asked if it radiates or not her answer was vague and started pointing at her neck and left breast. Pain does not seem to increase with respirations. Patient denies shortness of breath at this time. Patient has no other complaints. Otherwise case management has been working with her to find placement and it seems that getting placement is approaching. Review of Systems Review of Systems: All systems reviewed & are unremarkable except as noted in HPI & below Physical Exam Constitutional: well developed, well nourished and + frail appearing; no acute distress Neck: normal visual inspection and trachea midline Respiratory: normal respiratory effort, lungs clear to auscultation Cardiovascular: RRR, no murmur, no edema Heart Sounds: no gallop, no murmur and no cardiac rub Palpation: normal PMI Vessels: no JVD Chest pain reproducible with palpation of the inferior breast as well as the lateral side of the left deep brain stimulus noted. Gastrointestinal (Abdomen): normal bowel sounds, soft, nontender, no hepatosplenomegaly Skin: no rashes, warm and dry Neurologic: moves all extremities Psychiatric: A+Ox3, euthymic affect Results & Data Results & Data ([facility]) Vital Signs (Past 12 Hours) Vital Signs Temp Pulse Resp BP Pulse Ox 01/20/21 10:42 96 01/20/21 10:35 65 16 130/75 96 01/20/21 05:41 36.5 C 59 L 16 100/58 L 95
[2021-01-20] MEDS: ROSUVASTATIN CALCIUM 20 MG TAB PO SCH (19:54)
[2021-01-21] MEDS: ACETAMINOPHEN 325 MG TAB PO SCH ×3 (06:20→17:29)
[2021-01-21] MEDS: SENNA 8.6 MG TAB PO SCH (08:16)
[2021-01-21] MEDS: CHOLECALCIFEROL 1,000 UNITS 25 MCG TAB PO SCH (08:17)
[2021-01-21] MEDS: ESCITALOPRAM OXALATE 10 MG TAB PO SCH (08:18)
[2021-01-21] MEDS: CYANOCOBALAMIN 500 MCG TABLET (VITAMIN B-12) PO SCH (08:18)
[2021-01-21] MEDS: PRIMIDONE 50 MG TAB PO SCH ×2 (08:18→20:50)
[2021-01-21] MEDS: BACLOFEN 10 MG TAB PO SCH ×3 (08:18→20:49)
[2021-01-21] MEDS: DICYCLOMINE HCL 20 MG TAB PO SCH ×2 (08:18→20:49)
[2021-01-21] MEDS: LIDOCAINE 5% 1 PATCH TD SCH ×2 (08:19→08:21)
[2021-01-21] MEDS: DICLOFENAC SOD 1% GEL 100 GM TUBE EXT SCH ×4 (08:21→20:49)
[2021-01-21] MEDS: POLYETHYLENE (MIRALAX) 17 GM PACK PO SCH (08:21)
[2021-01-21] MEDS: HEPARIN SOD 5,000 UNIT/0.5 ML VIAL SQ SCH ×2 (08:22→20:51)
[2021-01-21] MEDS: FLUTICASONE PROPIONATE NA SPR 16 GM BTL NAE SCH ×2 (08:22→20:50)
[2021-01-21] MEDS: INSULIN ASPART 100 UNITS/ML 3 ML PEN SC SCH ×4 (09:21→20:57)
[2021-01-21] MEDS: traMADol HCL 50 MG TABLET PO PRN (09:23)
[2021-01-21] MEDS: CARBIDOPA/LEVODOPA 25/100MG TAB PO SCH ×2 (10:13→20:48)
--- NOTE | 2021-01-21 13:32 | Electrocardiogram Report ---
Test Reason : Blood Pressure : / mmHG Vent. Rate : 066 BPM Atrial Rate : 066 BPM P-R Int : 102 ms QRS Dur : 076 ms QT Int : 420 ms P-R-T Axes : 013 015 024 degrees QTc Int : 440 ms Poor data quality, interpretation may be adversely affected Sinus rhythm Nonspecific ST and T wave abnormality Abnormal ECG When compared with ECG of 12-JAN-2021 11:56, No significant change was found Confirmed by Chaparro Esteban ([id number]) on 01/21/2021 1:31:33 PM Referred By: REFERRED SELF Confirmed By:Kevin Esteban
--- NOTE | 2021-01-21 16:34 | Hospitalist Progress Note ---
Date of Service January 21, 2021 Assessment & Plan (1) Fall: Plan: Pt with 2 falls at home that she reported as yesterday. - Imaging negative for acute fractures or process in the cranial vault - No pain to neck/back/his/shoulder or arms - Pain to left rib 4-6 and left hip - Lidocaine patch on lateral ribs and lower back. - Scheduled Tylenol -Toradol discontinued as this is day 5. -OMT to the left piriformis performed with mild benefit. Performed Jesse technique of the hip the best ability with patient in bed. -Patient received a one-time dose of morphine 1 mg IV today due to distress pain was causing patient. -X-rays ordered of the pelvis and sacrum revealed coccygeal fracture. Motrin D/C'd. Has tramadol as needed - PT/OT consult; recommending transfer to rehab facility on discharge. - As per HPI patient lives at home by self -Patient was not covered for rehab facility due to insurance. -Patient did qualify for SNF for which she has been accepted at [facility]. Transportation tomorrow, likely discharge tomorrow. (2) Chest pain: Plan: Patient had episode of left-sided chest pain began on 01/20 -Resolved, likely was MSK in nature -EKG performed at bedside was unable to be interpreted due to interference from deep brain stimulus nodes. -As patient has difficult time answering questions, serial troponin was ordered to rule out cardiac etiology. Initial troponin was negative. -Serial troponins negative. (3) Constipation: Plan: -Resolved, continue MiraLAX (4) Nausea: Plan: -Resolved -Last known QTC was 419, ordered Zofran as needed for nausea. (5) Elevated AST (SGOT): Plan: -Patient has had a progressive increase in AST without elevation in ALT since arrival to the hospital. -Troponin was done on day 1 of admission with a negative result. -Liver ultrasound showed a normal liver, however, there was a mass noted on the pancreas that appeared cystic in nature. Pancreas focused CT revealed 2 cystic lesions on the pancreas. Radiology recommends follow-up MRI in 1 year. -No longer monitoring (6) Recurrent urinary tract infection: Plan: Urine cultures did not grow any bacteria. -Rocephin discontinued. (7) Weight loss: Plan: Significant weight loss reported with review of PCP notes - concern of her ability to provider care for herself - nutritional consult with supplemental shakes (8) HTN, goal below 140/90: Plan: -Withheld blood pressure medication as her pressures were running in the 90s over 50s. -Blood pressures have improved with the latest reading being 101/63 at the time of writing this note. (9) DM type 2 (diabetes mellitus, type 2): Plan: Patient on Metformin at home -Continue aspart sliding scale at this time with CF 20- 0 carb coverage at this time - Follow her nutritional intake (10) Diastolic murmur: Plan: ECHO 08/12 performed- mitral valve calcification without regurgitation - follow clinically - likely not providing any hemodynamic changes to function (11) Memory loss: Plan: Follow with supportive care -Frequent reorientation (12) Mixed hyperlipidemia: Plan: Continue statin (13) Anxiety: Plan: Continue escitalopram (14) Essential tremor: Plan: patient with parkinsonism with deep brain stimulator in place - Continue primidone - Continue Carbidopa Admission and Anticipated Discharge Date Admission Date: January 14, 2021 Supervising Physician Co-Signing Physician Notes I also saw the patient with the resident physician confirmed lovell portions of the history and physical examination. I agree with the impression and plan as noted in the resident documentation. Upon exam today, the patient without complaints. Exam 112/65, 58, 18, 36.8, 96% on room air No acute distress Heart regular rate and rhythm Lungs clear with nonlabored respirations Assessment and plan I agree with the plan as delineated in the resident note. Patient has been accepted to a halfway facility, with transport target for tomorrow Else per resident documentation. Subjective Patient seen at bedside this morning. Patient denies having chest pain that she had the complaint of yesterday. Patient actually states for 1 she is doing good and feels well albeit still having some sacral pain that has been consistent for the past few days. Patient has been having regular bowel movements due to being on bowel regimen and denies any problems with diarrhea. No overnight events noted. Explained to patient that she does have a placement available at [facility] for which she will have transportation to tomorrow morning. At this time patient has no other complaints and understands the plan. Review of Systems Review of Systems: All systems reviewed & are unremarkable except as noted in HPI & below Physical Exam Constitutional: well developed, well nourished and + frail appearing; no acute distress Eyes: + anicteric sclerae Neck: normal visual inspection Respiratory: normal respiratory effort, lungs clear to auscultation Cardiovascular: RRR, no murmur, no edema Gastrointestinal (Abdomen): Inspection/Auscultation: normal bowel sounds Skin: no rashes, warm and dry Neurologic: moves all extremities Psychiatric: A+Ox3, euthymic affect Results & Data Results & Data ([facility]) Vital Signs (Past 12 Hours) Vital Signs Temp Pulse Resp BP Pulse Ox 01/21/21 15:48 36.8 C 58 L 18 112/65 96 01/21/21 07:22 36.7 C 57 L 16 108/67 94 Resident Activity Tracking Resident Involvement: Resident Care Provided Care Provided: Adult Hospital Medicine
[2021-01-21] MEDS: ROSUVASTATIN CALCIUM 20 MG TAB PO SCH (20:51)
[2021-01-22] MEDS: ACETAMINOPHEN 325 MG TAB PO SCH ×3 (01:09→12:23)
[2021-01-22] MEDS: BACLOFEN 10 MG TAB PO SCH (09:55)
[2021-01-22] MEDS: INSULIN ASPART 100 UNITS/ML 3 ML PEN SC SCH ×2 (10:02→12:24)
[2021-01-22] MEDS: CYANOCOBALAMIN 500 MCG TABLET (VITAMIN B-12) PO SCH (10:03)
[2021-01-22] MEDS: DICLOFENAC SOD 1% GEL 100 GM TUBE EXT SCH (10:03)
[2021-01-22] MEDS: LIDOCAINE 5% 1 PATCH TD SCH ×2 (10:04→10:21)
[2021-01-22] MEDS: HEPARIN SOD 5,000 UNIT/0.5 ML VIAL SQ SCH (10:04)
[2021-01-22] MEDS: POLYETHYLENE (MIRALAX) 17 GM PACK PO SCH (10:05)
[2021-01-22] MEDS: PRIMIDONE 50 MG TAB PO SCH (10:05)
[2021-01-22] MEDS: SENNA 8.6 MG TAB PO SCH (10:06)
[2021-01-22] MEDS: ESCITALOPRAM OXALATE 10 MG TAB PO SCH (10:06)
[2021-01-22] MEDS: CARBIDOPA/LEVODOPA 25/100MG TAB PO SCH (10:06)
[2021-01-22] MEDS: DICYCLOMINE HCL 20 MG TAB PO SCH (10:06)
[2021-01-22] MEDS: CHOLECALCIFEROL 1,000 UNITS 25 MCG TAB PO SCH (10:06)
[2021-01-22] MEDS: FLUTICASONE PROPIONATE NA SPR 16 GM BTL NAE SCH (10:06)
--- NOTE | 2021-01-22 11:39 | Discharge Summary ---
Date of Service January 22, 2021 Admission HPI Per Admitting Provider 75 YOF with past medical history of: DM II, weight loss, ambulatory dysfunction, HTN, memory loss, Parkinsonism, UTI (E.Coli on Bactrim as outpatient since ), nerve stimulator, . Patient comes to the emergency room today brought in by family member secondary to two falls at home and decrease in ability to take care for herself. Patient chart review from PCP shows reported 30lb weight loss since August 12 and also reports memory lapses to take her medications. 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 She has no other care-givers at home. Patient reports that she fell twice yesterday. Once in the morning after coming out of the bathroom and landing on her left side where she was able to get herself to her bed and get up. She also reports that she fell off the couch yesterday while reaching for the phone. She states she does have a cane to walk with, but was not using it. She only states that she has pain on her left side on her ribs. Patient has had previous admissions with syncope, hypovolemia, and UTIs. Patient will be admitted for IVF hydration, will place her on Rocephin for her UTI. She has a routine culture done today that is pending- she was recently placed on Bactrim. Will add urine culture on from today's urine- that was LE positive, NE nitrates, and Mucous present but no bacteria. Patient had CXR, Head CT, hip xray performed today that were negative for acute fractures, bleeding, or injury. Patient COVID test on admission is: NEGATIVE Principal Diagnosis Fall Discharge Exam Constitutional well developed, well nourished and + frail appearing; no acute distress Eyes + anicteric sclerae Neck normal visual inspection and trachea midline Respiratory normal respiratory effort, lungs clear to auscultation Cardiovascular Rate/Rhythm: regular rate and regular rhythm Heart Sounds: + murmur Gastrointestinal (Abdomen) normal bowel sounds, soft, nontender, no hepatosplenomegaly Musculoskeletal Pain to palpation of the sacrum. Skin no rashes, warm and dry Neurologic moves all extremities Psychiatric Orientation: oriented to person, oriented to place and cooperative; + not oriented to time Eye Contact: + fair eye contact Motor Behavior: + tremor Affect: + flat affect Discharge Data Allergies Allergy/AdvReac Type Severity Reaction Status Date / Time levetiracetam Allergy Intermediate Rash Verified 01/12/21 14:57 adhesive tape Allergy Mild Rash Verified 01/12/21 14:57 naproxen Allergy Mild RASH Verified 01/12/21 14:57 ampicillin Allergy Unknown Unknown Verified 01/12/21 14:57 morphine Allergy Unknown Unknown Verified 01/12/21 14:57 Penicillins Allergy Unknown HAD Verified 01/12/21 14:57 CEPHALEXIN BEFORE AND OK, PCN=FACIAL SWELLING Sulfa (Sulfonamide AdvReac Intermediate N/V Verified 01/12/21 14:57 Antibiotics) Consultations 01/12/21 15:25 ED Decision to Admit Stat Ordered Studies 01/12/21 11:36 CT head/brain wo con Stat 01/15/21 08:08 US liver Routine 01/15/21 14:34 CT pancreas 3-phase wo/w con Routine Hospital Course (1) Fall: Pt with 2 falls at home that she reported as yesterday. - Imaging negative for acute fractures or process in the cranial vault - No pain to neck/back/his/shoulder or arms - Pain to left rib 4-6 and left hip - Lidocaine patch on lateral ribs and lower back. - Scheduled Tylenol -Toradol discontinued as this is day 5. -OMT to the left piriformis performed with mild benefit. Performed Jesse technique of the hip the best ability with patient in bed. -Patient received a one-time dose of morphine 1 mg IV today due to distress pain was causing patient. -X-rays ordered of the pelvis and sacrum revealed coccygeal fracture. Lucero D/C'd. Has tramadol as needed, continue tramadol for 1 week after discharge. - PT/OT consult; recommending transfer to rehab facility on discharge. Insurance will not cover rehab, was approved for SNF. Patient being discharged to [facility]. (2) Chest pain: Patient had episode of left-sided chest pain began on 01/20 -Resolved, likely was MSK in nature -EKG performed at bedside was unable to be interpreted due to interference from deep brain stimulus nodes. -As patient has difficult time answering questions, serial troponin was ordered to rule out cardiac etiology. Initial troponin was negative. -Serial troponins negative. (3) Constipation: -Resolved, continue MiraLAX (4) Nausea: -Resolved -Last known QTC was 419, ordered Zofran as needed for nausea. (5) Elevated AST (SGOT): -Patient has had a progressive increase in AST without elevation in ALT since arrival to the hospital. -Troponin was done on day 1 of admission with a negative result. -Liver ultrasound showed a normal liver, however, there was a mass noted on the pancreas that appeared cystic in nature. Pancreas focused CT revealed 2 cystic lesions on the pancreas. Radiology recommends follow-up MRI in 1 year. -No longer monitoring (6) Recurrent urinary tract infection: Urine cultures did not grow any bacteria. -Rocephin discontinued. (7) Weight loss: Significant weight loss reported with review of PCP notes - concern of her ability to provider care for herself - nutritional consult with supplemental shakes (8) HTN, goal below 140/90: -Withheld blood pressure medication as her pressures were running in the 90s over 50s. -Blood pressures have improved with the latest reading being 112/65 at the time of writing this note. (9) DM type 2 (diabetes mellitus, type 2): Continue Metformin on discharge (10) Diastolic murmur: ECHO 08/12 performed- mitral valve calcification without regurgitation - follow clinically - likely not providing any hemodynamic changes to function (11) Memory loss: Follow with supportive care -Frequent reorientation (12) Mixed hyperlipidemia: Continue statin (13) Anxiety: Continue escitalopram (14) Essential tremor: patient with parkinsonism with deep brain stimulator in place - Continue primidone - Continue Carbidopa Total Time Total Time Spent Total Time Spent (In Minutes): 30 Discharge Plan Discharge Items Patient Disposition: Transfer Custodial Fac Reason For Visit: FALL, WEAKNESS Discharge Diagnosis: Fall Activity: Per Instructions section Non-emergency contact: Primary Care Provider Call non-emergency contact if: you have any medication questions, your symptoms worsen and your pain is not controlled Follow-up/Referrals: Remedios Medrano CRNP [Primary Care Provider] - Diet: Carb Consistent or DM2 Addtl Attending Provider Instructions: You were seen in the hospital for injuries related to a fall in your home. You reported to us that you had fallen twice within a couple of days. He had complained of rib pain, hip pain, and gluteal pain. X-rays of your hip and chest revealed no fractures. X-rays of your sacrum revealed a coccygeal fracture for which you were started on pain medication. While you were here you were seen by physical therapy and Occupational Therapy who recommended you go to a facility to receive additional PT and OT. Case management was able to find you a room at [facility], a facility in [place], which you are being transferred to today. You will be sent with some pain medication to help with your pain associated with your coccygeal fracture. While you are at [facility] you will receive physical therapy to help regain your strength with the goal of being able to return home. It was a pleasure to be a part of your care and we wish you the best in your recovery. Pending Studies at Discharge: No Stand-Alone Forms: My [facility] Skilled Items Patient informed of condition?: Yes DNR: No Discharge Level of Care: Skilled Communicable Disease: No Discharge Prognosis: Stable Lines: None Urinary Catheter: No Medications and DC Order Prescriptions: New diclofenac sodium [Voltaren Arthritis Pain] 1 % Gel 2 g EXT QID Qty: 100 RF: 1 Continued dicyclomine 20 mg tablet 20 mg PO BID Qty: 180 RF: 3 Hold Instructions: trial on hold metformin 500 mg tablet 500 mg PO BIDM 30 Days Qty: 60 RF: 11 enalapril maleate 10 mg tablet 10 mg PO QAM 30 Days Qty: 30 RF: 8 Hold Instructions: BP low escitalopram oxalate 10 mg tablet 10 mg PO QAM Qty: 90 RF: 3 ondansetron HCl [Zofran] 4 mg tablet 4 mg PO Q8H PRN (Reason: nausea and vomiting) Qty: 20 RF: 0 primidone 50 mg tablet 100 mg PO BID RF: 0 Bepreve 1.5 % drops 1 drops OPB BID RF: 0 omeprazole 20 mg capsule,delayed release(DR/EC) 20 mg PO DAILY Qty: 90 RF: 3 Hold Instructions: trial off biotin 5,000 mcg Tablet, Sublingual 5,000 mcg sublingual QAM RF: 0 multivitamin tablet 1 tab PO QAM RF: 0 cyanocobalamin (vitamin B-12) [Vitamin B-12] 1,000 mcg tablet 1,000 mcg PO QAM RF: 0 cholecalciferol (vitamin D3) [Vitamin D3] 2,000 unit tablet 2,000 unit PO QAM RF: 0 carbidopa-levodopa 25-100 mg tablet 3 tab PO BID RF: 0 potassium gluconate 600 mg (99 mg) Tablet 600 mg PO BID RF: 0 fluticasone propionate 50 mcg/actuation spray,suspension 1 sprays intranasal BID RF: 0 rosuvastatin 20 mg tablet 20 mg PO HS RF: 0 Discontinued sulfamethoxazole-trimethoprim [Bactrim DS] 800-160 mg tablet 1 tab PO BID Qty: 10 RF: 0 Discharge Orders: Discharge Order (Routine); Ordered 01/22/21 Ordered By: Dmitry Carlton Admission Data Admit Date/Time: 01/14/21 17:19 Attending Provider: Markell Briones Admit Provider: Marquis Hernandez Primary Care Provider: Remedios Medrano Other Providers: Marquis Hernandez ; [facility] ; [facility] ; [place],[facility], [place] Other Interventions: Discharge Summary Assessment (RN) Last Done: 01/22/21 11:25 Supervising Physician Co-Signing Physician Notes I also saw the patient with the resident physician confirmed lovell portions of the history and physical examination. I agree with the impression and plan as noted in the resident documentation. Upon exam today, the patient without complaints. She is actually more awake than she was yesterday; conversational. Exam 112/65, 64, 14, 36.4, 95% on room air No acute distress Heart regular rate and rhythm Lungs clear with nonlabored respirations Assessment and plan I agree with the plan as delineated in the resident note. Patient has been accepted to a shelter facility, with transport arranged for this afternoon Else per resident documentation.
--- NOTE | 2021-01-31 08:16 | Coding Query ---
To promote full compliance with coding requirements relating to patient care, provider participation is requested in all cases of vaudeville actor uncertainty. Please assist us with the question(s) below: Coding Question(s): The diagnosis below was documented throughout the chart, but in the DS, the following was noted: Recurrent urinary tract infection: Urine cultures did not grow any bacteria. -Rocephin discontinued. Please indicate if it is still a possible diagnosis or was ruled out. Physician's Response(s): UTI ( ) Diagnosed and POA ( ) Diagnosed and not POA ( X ) Ruled out ( ) Other (please specify) Thank you for your time, MARIO Ricehy, [facility]
== END 2021-01-22 13:41 | DRG 92 ==
LOC: ED 10:38 → 3N 10:38 → SUATTDRO 16:04 → 3N 17:57 → SUATTDRO 01-14 17:19 → 3N 01-15 23:03

== ENCOUNTER 2022-12-20 11:16 | Inpatient (IN) ==
--- NOTE | 2022-12-20 12:01 | Emergency Department Note ---
Impression & Plan Acute pain of right hip, Ambulatory dysfunction, Acute UTI (urinary tract infection) ED Provider Note HISTORY OF PRESENT ILLNESS: Patient is a 77-year-old female presenting with right hip pain. Patient reportedly fell 3 days ago at her facility but was not complaining of any pain. This morning, the patient was complaining of pain in her right hip and has been unable to ambulate on her own. She is normally ambulatory with a walker at her facility. However, since waking up this morning she has been wheelchair-bound secondary to pain in her right hip. Locates the pain to the right lateral hip and low back with radiation down into the knee. She denies any recent falls in the last 24 hours. Denies any numbness or tingling down the leg. Denies any bowel or bladder incontinence. Denies any saddle anesthesia. She was diagnosed with a urinary tract infection last week and has been on antibiotics. She is still complaining of some dysuria. ROS: as above PHYSICAL EXAM: Constitutional: Patient appears in no distress. HENT: Head: Normocephalic and atraumatic. Eyes: EOMI, PERRL Mouth/Throat: Mucous membranes moist. Neck: Trachea midline. Neck supple. Cardiovascular: RRR, No murmurs, rubs or gallops. Intact distal pulses. Pulmonary/Chest: No respiratory distress. Breath sounds clear and equal bilaterally. No wheezes or rales. Abdominal: Abdomen soft, no tenderness, rebound or guarding. Back: No paraspinal tenderness. Lower lumbar tenderness to palpation. Musculoskeletal: - RLE: Patient has tenderness to palpation to the lateral right hip. She is able to range the hip, but complains of significant pain with flexion of the femur. Sensation intact to light touch at the nerve distributions of the leg. Intact DP pulses. No obvious open wounds or deformity. Skin: Warm and dry. No rash, erythema, pallor or cyanosis Psychiatric: Appropriate mood and affect for situation. Neurological: Alert and keenly responsive. CN II-XII grossly intact, moving all extremities equally and fully. MDM: - Vitals signs stable. - History obtained via patient. Patient presents with right hip pain. Patient reportedly woke up today and was complaining of pain in her right hip and has been unable to ambulate on her own. She is normally ambulatory with a walker at her facility. She reportedly has been wheelchair-bound since this morning secondary to pain in her right hip. No reported falls in the last 24 to 48 h ours. Denies any numbness or tingling down the leg. Denies any bowel or bladder incontinence. Denies any saddle anesthesia. She was diagnosed with UTI last week and is been on amoxicillin. She is still complaining of some dysuria - Chronic conditions affecting care: sensorineural hearing loss; GERD; asthma - Differential diagnoses include, but are not limited to: Right hip fracture; hip dislocation; lumbar spine fracture; UTI - Order placed for continuous cardiac monitoring. At this time, monitor showed rate of 70 bpm with normal sinus rhythm, per my interpretation. - External medical records reviewed. Patient's urine culture from a few days ago was reviewed. She did grow Klebsiella that was sensitive to Rocephin and amoxicillin. - Laboratory workup interpreted by myself showed normal WBC; stable electrolytes; normal creatinine - Xray pelvis with right hip negative for fracture, per my interpretation - Xray lumbar spine negative for fracture. - UA shows evidence of infection. Given 2g IV rocephin - Discussed results with daughter and patient at bedside. Daughter expresses c oncern about the patient going back to her facility, she is unable to get up and walk secondary to continued pain in the emergency department. 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 ASSESSMENT AND PLAN: Diagnosis: UTI; ambulatory dysfunction; right hip pain Plan: admit Past Med/Surg History Medical History Acute UTI Asthma Chest pain Coccygeal fracture Constipation Elevated AST (SGOT) Fall Fall GERD (gastroesophageal reflux disease) resolved, off PPI Nausea Recurrent urinary tract infection Sensorineural hearing loss (SNHL) of both ears Tubular adenoma of colon Surgical History S/P cholecystectomy S/P deep brain stimulator placement (08/20/16) S/P sinus surgery Status post tubal ligation Family History Father Cancer Mother Depression Hypertension Stroke Grandmother Breast cancer Mother Myocardial infarction Denies family history of Ovarian cancer Prostate cancer Colorectal cancer Social History Smoking Status: Never smoker Second Hand Exposure: No; Do You Dip or Chew Tobacco: No; Hx Alcohol Use: No Hx Substance Use: No Preferred Language: Hungarian Communication Ability: Effective 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 Beliefs That Will Affect Care: None marital status: / Current Living Situation: Alone current occupational status: retired Feels Safe at Home: Yes caffeine: Yes Dental Care, Regularly: No Physical Activity Frequency: Does not Exercise Seatbelt Use: always Sunscreen Use: No Assistive Devices: Walker Allergies Allergies Allergy/AdvReac Type Severity Reaction Status Date / Time levetiracetam Allergy Intermediate Rash Verified 09/08/22 13:55 adhesive tape Allergy Mild Rash Verified 09/08/22 13:55 naproxen Allergy Mild RASH Verified 09/08/22 13:55 morphine Allergy Unknown Unknown Verified 09/08/22 13:55 Home Meds Home Medications Medication Instructions Recorded Confirmed cholecalciferol (vitamin D3) 50 2,000 unit PO QAM 09/08/18 12/16/22 mcg (2,000 unit) tablet (Vitamin D3) cyanocobalamin (vitamin B-12) 1,000 mcg PO QAM 09/08/18 12/16/22 1,000 mcg tablet (Vitamin B-12) acetaminophen 325 mg tablet 650 mg PO Q4H PRN Fever Or Pain 05/13/21 12/16/22 lidocaine 4 % topical patch 1 patch topical DAILY PRN Pain 06/03/21 12/16/22 olopatadine 0.7 % eye drops 1 drp OPB QAM 03/04/22 12/16/22 (Pataday Once Daily Relief) loperamide 2 mg capsule 2 mg PO Q4H PRN Loose Stool 07/07/22 12/16/22 (Anti-Diarrheal (loperamide)) multivitamin (Daily-Devin tablet) 1 tab PO DAILY 09/03/22 12/16/22 olopatadine 0.7 % eye drops 1 drp OPB QPM PRN itchy eyes 09/03/22 12/16/22 (Pataday Once Daily Relief) Previous Rx's Medication Instructions Recorded ondansetron HCl 4 mg tablet 4 mg PO Q8H PRN nausea and 05/19/22 vomiting #20 tabs metformin 500 mg tablet 500 mg PO BIDM 30 days #60 tabs 07/23/22 nitrofurantoin macrocrystal 50 mg 50 mg PO HS #90 caps 08/17/22 capsule (Macrodantin) pen needle, diabetic 31 gauge x #100 ea 08/17/22 3/16" (Sure-Fine Pen Climax) carbidopa 25 mg-levodopa 100 mg 2 tab PO TID 30 days #180 tabs 09/09/22 tablet diclofenac sodium 1 % topical gel 2 g topical QID PRN coccyx pain 09/11/22 #100 grams fluticasone propionate 50 1 spray intranasal BID #16 grams 10/20/22 mcg/actuation nasal spray,suspension insulin glargine 100 unit/mL (3 28 unit (0.28 mL) subcut QPM #15 mL 11/11/22 mL) subcutaneous pen (Lantus Solostar U-100 Insulin) amoxicillin 500 mg-potassium 1 tab PO BID #20 tabs 12/17/22 clavulanate 125 mg tablet (Augmentin) escitalopram oxalate 20 mg tablet 20 mg PO DAILY #30 tabs 12/17/22 primidone 50 mg tablet 100 mg PO BID #120 tabs 12/17/22 rosuvastatin 20 mg tablet 20 mg PO HS #30 tabs 12/17/22 Results & Data (ED) Vital Signs Vital Signs - 24 hr 12/20/22 11:21 12/20/22 13:00 12/20/22 14:25 Temperature 36.6 C Temperature Source Temporal Artery Scan Pulse Rate 76 68 Pulse Rate [Apical] 78 Respiratory Rate 20 18 Respiratory Effort / Characteristics Non-Labored Non-Labored Spontaneous Respiratory Depth Normal Normal Respiratory Pattern Regular Blood Pressure 142/65 H Blood Pressure [Right Arm] 159/76 H Blood Pressure Mean 90 Blood Pressure Mean [Right Arm] 103 Blood Pressure Position [Right Arm] Pulse Oximetry 96 98 Oxygen Delivery Method Room Air Room Air Sepsis Recent Fever Within 48 Hours No Sepsis New/Unexplained Change in Mental Status No Sepsis Action Taken by Nursing No Action Required 12/20/22 15:00 Temperature Temperature Source Pulse Rate Pulse Rate [Apical] 68 Respiratory Rate 18 Respiratory Effort / Characteristics Non-Labored Spontaneous Respiratory Depth Normal Respiratory Pattern Regular Blood Pressure Blood Pressure [Right Arm] 148/81 H Blood Pressure Mean Blood Pressure Mean [Right Arm] 103 Blood Pressure Position [Right Arm] Semi-fowlers Pulse Oximetry 96 Oxygen Delivery Method Room Air Sepsis Recent Fever Within 48 Hours Sepsis New/Unexplained Change in Mental Status Sepsis Action Taken by Nursing Laboratory Data 12/20/22 13:54 12/20/22 13:54 Lab Results 12/20/22 12/20/22 12/20/22 Range/Units 13:54 13:54 15:27 WBC 4.52 L (4.8-10.8) K/ul RBC 4.12 L (4.20-5.40) M/uL Hgb 11.8 L (12.0-16.0) g/dl Hct 34.4 L (37.0-47.0) % MCV 83.5 (80.0-100.0) fL MCH 28.6 (25.0-34.0) pg MCHC 34.3 (32.0-36.0) g/dL RDW Std Deviation 41.3 (36.4-46.3) fL RDW Coeff of Sunitha 13.5 (11.5-14.5) % Plt Count 172 (130-400) K/uL MPV 10.7 (9.4-12.4) fL Immature Gran % (Auto) 0.2 % Neut % (Auto) 61.4 % Lymph % (Auto) 28.3 % [place] % (Auto) 9.7 % Eos % (Auto) 0.2 % Baso % (Auto) 0.2 % Neut # (Auto) 2.77 (1.40-6.50) K/uL Lymph # (Auto) 1.28 (1.20-3.40) K/uL [place] # (Auto) 0.44 (0.11-0.59) K/uL Eos # (Auto) 0.01 (0.00-0.50) K/uL Baso # (Auto) 0.01 (0.00-0.20) K/uL Immature Gran # (Auto) 0.01 (0.01-0.20) K/uL Sodium 140 (136-145) mmol/L Potassium 3.7 (3.5-5.1) mmol/L Chloride 107 (98-107) mmol/L Carbon Dioxide 26 (21-32) mmol/L Anion Gap 7 (3-11) BUN 17 (6-23) mg/dl Creatinine 0.68 (0.6-1.2) mg/dl Est Cr Clr Drug Dosing Not Reportable Est GFR ( Amer) 96.4 ml/min Est GFR (Non-Af Amer) 83.2 ml/min BUN/Creatinine Ratio 25.0 H (10-20) Glucose 161 H (70-99(Fasting)) mg/dl Calcium 9.3 (8.6-10.3) mg/dl Total Bilirubin 0.4 (0.2-1.0) mg/dl AST 31 (13-39) U/L ALT 15 (7-52) U/L Alkaline Phosphatase 49 (34-104) U/L Total Protein 6.5 (6.0-8.3) gm/dl Albumin 3.9 (3.4-5.0) gm/dl Globulin 2.6 (2.5-4.0) gm/dl Albumin/Globulin Ratio 1.5 (0.9-2) Urine Color Dark Yellow Urine Appearance Clear (Clear) Urine pH 6.0 (4.5-7.5) Ur Specific Ethel 1.032 H (1.000-1.030) Urine Protein 1+ H (Negative) Urine Glucose (UA) Trace H (Negative) Urine Ketones Trace H (Negative) Urine Blood Negative (Negative) Urine Nitrite Negative (Negative) Urine Bilirubin Negative (Negative) Urine Urobilinogen Negative (Negative) Ur Leukocyte Esterase 1+ H (Negative) Urine WBC (Auto) >30 H (0-5) /hpf Urine RBC (Auto) 0-4 (0-4) /hpf U Hyaline Cast (Auto) 5-10 H (0-5) /lpf U Epithel Cells (Auto) 10-20 H (0-5) /lpf Urine Bacteria (Auto) Negative (Negative) Urine Crystals Not Reportable Calcium Oxalate Crystal Present A (None Prsent) Administered Medications Sodium Chloride (Nss) 1,000 mls @ 999 mls/hr IV .Q1H1M ONE Stop: 12/20/22 17:29 Last Admin: 12/20/22 16:58 Dose: 999 mls/hr Documented By: LCD Discontinued Medications Fentanyl Citrate (Fentanyl Citrate Pf 100 Mcg/2 Ml Vial) 50 mcg IM NOW ONE Stop: 12/20/22 12:24 Last Admin: 12/20/22 12:30 Dose: 50 mcg Documented By: RIKKI Fentanyl Citrate (Fentanyl Citrate Pf 100 Mcg/2 Ml Vial) 50 mcg IV NOW STA Stop: 12/20/22 14:25 Last Admin: 12/20/22 14:28 Dose: 50 mcg Documented By: DIAZD Imaging Data Radiologist's Impression: Hip/Pelvis X-Ray 12/20/22 11:48 XR hip RT 2V w pelvis HISTORY: 77 years-old Female fall; right hip pain acute right hip pain status post fall COMPARISON: CT 12/16/2022 TECHNIQUE: AP view of the pelvis with 2 views of the right hip FINDINGS: Mild osteoarthritis of the hips. No acute fracture or dislocation. IMPRESSION: No acute fracture or dislocation. ACT 112: Negative or not required by law. The above report was generated using voice recognition software. It may contain grammatical, syntax or spelling errors. Electronically signed by: Jl Levy M.D. 12/20/2022 1:05 PM Lumbar Spine X-Ray 12/20/22 13:11 XR lumbar spine 2-3V HISTORY: 77 years-old Female low back pain s/p fall acute low back pain status post fall COMPARISON: CT 12/16/2022 TECHNIQUE: 3 views of the lumbar spine FINDINGS: Cholecystectomy. Arterial calcifications. Mild multilevel intervertebral disc space narrowing, spondylotic spurring and facet arthrosis. No acute fracture or subluxation. IMPRESSION: No acute fracture or subluxation. ACT 112: Negative or not required by law. The above report was generated using voice recognition software. It may contain grammatical, syntax or spelling errors. Electronically signed by: Jl Levy M.D. 12/20/2022 2:51 PM Discharge Plan Visit Data Chief Complaint: Urinary Symptoms Stated Complaint: UTI ED Provider: Mone Bernardo Discharge Problem: Acute pain of right hip, Ambulatory dysfunction, Acute UTI (urinary tract infection) Forms Stand Alone Forms: [employer] Prescriptions Prescriptions: No Action ondansetron HCl 4 mg tablet 4 mg PO Q8H PRN (Reason: nausea and vomiting) Qty: 20 3RF metformin 500 mg tablet 500 mg PO BIDM 30 Days Qty: 60 11RF (DME) pen needle, diabetic [Sure-Fine Pen Climax] 31 gauge x 3/16" needle See Rx Instructions .Route Qty: 100 3RF Rx Instructions: As directed inject once daily Dx E11.9 Saftey tips carbidopa-levodopa 25-100 mg tablet 2 tab PO TID 30 Days Qty: 180 6RF diclofenac sodium 1 % gel 2 g topical QID PRN (Reason: coccyx pain) Qty: 100 4RF fluticasone propionate 50 mcg/actuation spray,suspension 1 spray intranasal BID Qty: 16 3RF insulin glargine [Lantus Solostar U-100 Insulin] 100 unit/mL (3 mL) insulin pen 28 unit subcut QPM Qty: 15 3RF amoxicillin-pot clavulanate [Augmentin] 500-125 mg tablet 1 tab PO BID Qty: 20 0RF Rx Instructions: d/c bactrim rosuvastatin 20 mg tablet 20 mg PO HS Qty: 30 11RF primidone 50 mg tablet 100 mg PO BID Qty: 120 11RF Rx Instructions: 100 mg PO = 2 tablets in the morning and 2 tablets in the evening.; escitalopram oxalate 20 mg tablet 20 mg PO DAILY Qty: 30 11RF lidocaine 4 % adhesive patch,medicated 1 patch topical DAILY PRN (Reason: Pain) Rx Instructions: on 12 hours off 12 hours loperamide [Anti-Diarrheal (loperamide)] 2 mg capsule 2 mg PO Q4H PRN (Reason: Loose Stool) Pataday Once Daily Relief 0.7 % drops 1 drp OPB QAM acetaminophen 325 mg tablet 650 mg PO Q4H MDD 3G PRN (Reason: Fever Or Pain) Rx Instructions: use for mild/mod pain or Temp>100 nitrofurantoin macrocrystal [Macrodantin] 50 mg capsule 50 mg PO HS Qty: 90 1RF Rx Instructions: must administer with a meal/food cyanocobalamin (vitamin B-12) [Vitamin B-12] 1,000 mcg tablet 1,000 mcg PO QAM cholecalciferol (vitamin D3) [Vitamin D3] 2,000 unit tablet 2,000 unit PO QAM multivitamin [Daily-Devin] Tablet 1 tab PO DAILY Pataday Once Daily Relief 0.7 % Drops 1 drp OPB QPM PRN (Reason: itchy eyes) Referrals Referrals: Alirio Emerson [Primary Care Provider] -
[2022-12-20] MEDS ORDERED: fentaNYL citrate PF 100 MCG/2 ML VIAL IM ONE (12:23)
--- NOTE | 2022-12-20 13:06 | XRay Report ---
XR hip RT 2V w pelvis HISTORY: 77 years-old Female fall; right hip pain acute right hip pain status post fall COMPARISON: CT 12/16/2022 TECHNIQUE: AP view of the pelvis with 2 views of the right hip FINDINGS: Mild osteoarthritis of the hips. No acute fracture or dislocation. IMPRESSION: No acute fracture or dislocation. ACT 112: Negative or not required by law. The above report was generated using voice recognition software. It may contain grammatical, syntax o r spelling errors. Electronically signed by: Jl Levy M.D. 12/20/2022 1:05 PM
[2022-12-20 14:15] LABS: Basophils # (auto) 0.01 K/uL (0.00-0.20); Basophils % (auto) 0.2 %; Eosinophils # (auto) 0.01 K/uL (0.00-0.50); Eosinophils % (auto) 0.2 %; Hematocrit (blood only) 34.4 % (37.0-47.0); Hemoglobin 11.8 g/dl (12.0-16.0); Immature Granulocytes # (auto) 0.01 K/uL (0.01-0.20); Immature Granulocytes % (auto) 0.2 %; Lymphocytes # (auto) 1.28 K/uL (1.20-3.40); Lymphocytes % (auto) 28.3 %; Mean Corpuscular Hemoglobin 28.6 pg (25.0-34.0); Mean Corpuscular Hgb Conc 34.3 g/dL (32.0-36.0); Mean Corpuscular Volume 83.5 fL (80.0-100.0); Mean Platelet Volume 10.7 fL (9.4-12.4); Monocytes # (auto) 0.44 K/uL (0.11-0.59); Monocytes % (auto) 9.7 %; Neutrophils # (auto) 2.77 K/uL (1.40-6.50); Neutrophils % (auto) 61.4 %; Platelet Count 172 K/uL (130-400); RDW Coefficient of Variation 13.5 % (11.5-14.5); RDW Standard Deviation 41.3 fL (36.4-46.3); Red Blood Count 4.12 M/uL (4.20-5.40); White Blood Count 4.52 K/ul (4.8-10.8)
[2022-12-20] MEDS ORDERED: fentaNYL citrate PF 100 MCG/2 ML VIAL IV STA (14:24)
[2022-12-20 14:33] LABS: Alanine Aminotransferase 15 U/L (7-52); Albumin Globulin Ratio 1.5 (0.9-2); Albumin Level 3.9 gm/dl (3.4-5.0); Alkaline Phosphatase 49 U/L (34-104); Anion Gap 7 (3-11); Aspartate Aminotransferase 31 U/L (13-39); Bilirubin,Total 0.4 mg/dl (0.2-1.0); Blood Urea Nitrogen 17 mg/dl (6-23); Calcium 9.3 mg/dl (8.6-10.3); Carbon Dioxide 26 mmol/L (21-32); Chloride 107 mmol/L (98-107); Est GFR (African American) 96.4 ml/min; Est GFR (Non-African American) 83.2 ml/min; Globulin 2.6 gm/dl (2.5-4.0); Glucose 161 mg/dl (70-99(Fasting)); Potassium 3.7 mmol/L (3.5-5.1); Sodium 140 mmol/L (136-145); Total Protein 6.5 gm/dl (6.0-8.3)
--- NOTE | 2022-12-20 14:52 | XRay Report ---
XR lumbar spine 2-3V HISTORY: 77 years-old Female low back pain s/p fall acute low back pain status post fall COMPARISON: CT 12/16/2022 TECHNIQUE: 3 views of the lumbar spine FINDINGS: Cholecystectomy. Arterial calcifications. Mild multilevel intervertebral disc space narrowing, spondy lotic spurring and facet arthrosis. No acute fracture or subluxation. IMPRESSION: No acute fracture or subluxation. ACT 112: Negative or not required by law. The above report was generated using voice recognition software. It may contain grammatical, syntax o r spelling errors. Electronically signed by: Jl Levy M.D. 12/20/2022 2:51 PM
[2022-12-20 15:46] LABS: Appearance Urine Clear (Clear); Bacteria Urine Automated Negative (Negative); Bilirubin Urine Negative (Negative); Blood Urine Negative (Negative); Color Urine Dark Yellow; Glucose Urine UA Trace (Negative); Ketones Urine Trace (Negative); Leukocyte Esterase Urine 1+ (Negative); Nitrite Urine Negative (Negative); Protein Urine 1+ (Negative); RBC Urine Automated 0-4 /hpf (0-4); Specific Gravity Urine 1.032 (1.000-1.030); Urobilinogen Urine Negative (Negative); WBC Urine Automated >30 /hpf (0-5)
[2022-12-20 16:03] LABS: Calcium Oxalate Crystals Urine Present (None Prsent)
[2022-12-20] MEDS ORDERED: SODIUM CHLORIDE 0.9% 1,000 ML IV ONE (16:29)
[2022-12-20] MEDS ORDERED: cefTRIAXone SODIUM 2,000 MG/50 ML BAG IV STA (17:01)
--- NOTE | 2022-12-20 17:11 | History & Physical Report ---
Date of Service December 20, 2022 Assessment & Plan (1) Acute UTI (urinary tract infection): Plan: Abdominal pain, suspect UTI Patient with UTI showing Klebsiella pneumonia UTI, resistant to Bactrim and intermediate resistance to Unasyn. Patient was switched from Bactrim to Augmentin, has had worsening pain in her abdomen with some radiation into the right lower extremity. Worst area of pain is midline suprapubic/umbilical with some radiation to right lower quadrant. Did have a CT with contrast this week, will defer repeat CT unless she continues to worsen despite antibiotic change. While she does note that some of the pain radiates into her hip she has been able to bear weight and walk without difficulty, and tolerates hip flexion and external rotation at the bedside. X-ray of the hip/pelvis/lumbar spine do not show fracture Continue Rocephin, both recent isolates are susceptible to this Patient has some liquid diarrhea since being on Augmentin, C. difficile is pending (2) Ataxia: Plan: Secondary parkinsonism, cognitive decline Follows with neurology as outpatient. Had bilateral upper extremity essential tremor severe, went DBS placement 2013, and subsequently with dysarthria/ataxia. Follows with [facility] intermittently. Continued on primidone and carbidopalevodopa, but is not suspected to have classic Parkinson's disease. Has been noted to have memory loss and suspected early dementia on prior follow- ups. Low suspicion for Alzheimer's Continue carbidopalevodopa Patient is with cognitive decline but no hallucinations and does not have a diagnosis of Lewy body disease Per patient's daughter normally Jackie has intact and relatively normal mentation and is significantly different from her usual baseline in the last day. We will treat UTI as noted. Suspect acute deviation from baseline with incompletely treated infection with some baseline chronic memory decline PT/OT pending (3) DM type 2 (diabetes mellitus, type 2): Plan: Type II DM Recent total daily insulin dose approximately 20 units short acting + lantus 28u daily. - Continue lantus 14u BID, SSI BSG 161 on admission Goal BSG [id number] (4) S/P deep brain stimulator placement: Plan: As no (5) Orthostatic hypotension: Plan: Orthostatic hypotension Possible side effect of carbidopa levodopa, but patient has had significant therapeutic benefit from this and is not recommended to be held Noted, normotensive on assessment (6) Acute dehydration: Plan DVT prophylaxis: Dose reduce Lovenox CODE STATUS: DNR/DNI. Patient formally full code. Did discuss with Nadia and her family at bedside, Jackie reports that in the event of a cardiac or pulmonary arrest she would not want brought back and would want providers to "let me go ". This is a change from prior CODE STATUS, updated Diet: Type II DM Disposition: Med/surge History of Present Illness Primary Care Provider: [facility] Nadia is a 77-year-old female with a past medical history of type 2 diabetes, chronic memory decline/cognitive decline, ambulatory dysfunction, hyperlipidemia, IBS, COPD, tremor on carbidopalevodopa without Parkinson's diagnosis, frequent UTIs who presents from [facility] with diffuse right-sided pain, agitation, confusion, and no falls. Due to her discomfort her care needs currently exceed those available at her facility and she is recommended for treatment of generalized pain and confusion with possible underlying UTI ER evaluation shows no leukocytosis, normal sodium/potassium, normal kidney function, trace BUN/creatinine contraction, infected versus contaminated UA. No fracture or acute abnormalities noted on lumbar spine x-ray or hip/pelvis x-ray. Had UTI symptoms for 1 week prior to that, and had some hematuria with urine. Had a urology culture which was sent for PCR. Was put on bactrim 'got profusely sick' after a single dose of this. Was switched wednesday to Augmentin taken BID since then. Did take a dose of Augmentin this morning. After and was doing well but did have one fall. This morning was 'hollering' in pain, which she reprots is on the right side but gestures to the mid-pubic region. Nadia was able to walk and bear weight to the bathroom and to her wheelchari with assistance without worsening pain. Allergies Allergy/AdvReac Type Severity Reaction Status Date / Time levetiracetam Allergy Intermediate Rash Verified 12/20/22 17:03 adhesive tape Allergy Mild Rash Verified 12/20/22 17:03 naproxen Allergy Mild RASH Verified 12/20/22 17:03 morphine Allergy Unknown Unknown Verified 12/20/22 17:03 Home Medications Medication Instructions Recorded Confirmed Type cholecalciferol (vitamin D3) 50 2,000 unit PO QAM 09/08/18 12/20/22 History mcg (2,000 unit) tablet (Vitamin D3) cyanocobalamin (vitamin B-12) 1,000 mcg PO QAM 09/08/18 12/20/22 History 1,000 mcg tablet (Vitamin B-12) acetaminophen 325 mg tablet 650 mg PO Q4H PRN Fever Or Pain 05/13/21 12/20/22 History lidocaine 4 % topical patch 1 patch topical DAILY PRN Pain 06/03/21 12/20/22 History olopatadine 0.7 % eye drops 1 drp OPB QAM 03/04/22 12/20/22 History (Pataday Once Daily Relief) ondansetron HCl 4 mg tablet 4 mg PO Q8H PRN nausea and 05/19/22 12/20/22 Rx vomiting #20 tabs loperamide 2 mg capsule 2 mg PO Q4H PRN Loose Stool 07/07/22 12/20/22 History (Anti-Diarrheal (loperamide)) metformin 500 mg tablet 500 mg PO BIDM 30 days #60 tabs 07/23/22 12/20/22 Rx pen needle, diabetic 31 gauge x #100 ea 08/17/22 12/16/22 Rx 3/16" (Sure-Fine Pen [place]) multivitamin (Daily-Devin tablet) 1 tab PO DAILY 09/03/22 12/20/22 History olopatadine 0.7 % eye drops 1 drp OPB QPM PRN itchy eyes 09/03/22 12/20/22 History (Pataday Once Daily Relief) carbidopa 25 mg-levodopa 100 mg 2 tab PO TID 30 days #180 tabs 09/09/22 12/20/22 Rx tablet diclofenac sodium 1 % topical gel 2 g topical QID PRN coccyx pain 09/11/22 12/20/22 Rx #100 grams fluticasone propionate 50 1 spray intranasal BID #16 grams 10/20/22 12/20/22 Rx mcg/actuation nasal spray,suspension insulin glargine 100 unit/mL (3 28 unit (0.28 mL) subcut QPM #15 mL 11/11/22 12/20/22 Rx mL) subcutaneous pen (Lantus Solostar U-100 Insulin) amoxicillin 500 mg-potassium 1 tab PO BID #20 tabs 12/17/22 12/20/22 Rx clavulanate 125 mg tablet (Augmentin) escitalopram oxalate 20 mg tablet 20 mg PO DAILY #30 tabs 12/17/22 12/20/22 Rx primidone 50 mg tablet 100 mg PO BID #120 tabs 12/17/22 12/20/22 Rx rosuvastatin 20 mg tablet 20 mg PO HS #30 tabs 12/17/22 12/20/22 Rx nitrofurantoin macrocrystal 50 mg 50 mg PO QPM 12/20/22 12/20/22 History capsule (Macrodantin) Past Med/Surg History Medical History Acute UTI Asthma Chest pain Coccygeal fracture Constipation Elevated AST (SGOT) Fall Fall GERD (gastroesophageal reflux disease) resolved, off PPI Nausea Recurrent urinary tract infection Sensorineural hearing loss (SNHL) of both ears Tubular adenoma of colon Surgical History S/P cholecystectomy S/P deep brain stimulator placement (08/20/16) S/P sinus surgery Status post tubal ligation Family History Father Cancer Mother Depression Hypertension Stroke Grandmother Breast cancer Mother Myocardial infarction Denies family history of Ovarian cancer Prostate cancer Colorectal cancer Social History Smoking Status: Never smoker Second Hand Exposure: No; Do You Dip or Chew Tobacco: No; Hx Alcohol Use: No Hx Substance Use: No Preferred Language: Divehi Communication Ability: Effective Catalogue Compiler Required: No Beliefs That Will Affect Care: None marital status: / Current Living Situation: Alone current occupational status: retired Feels Safe at Home: Yes caffeine: Yes Dental Care, Regularly: No Physical Activity Frequency: Does not Exercise Seatbelt Use: always Sunscreen Use: No Assistive Devices: Walker Physical Exam Physical Exam: General:. Oriented to name, and hospital. Cooperative. Speech with increased latency, but otherwise fluent HEENT: Atraumatic, normocephalic. Vision/hearing grossly intact Pulm: CTAB A&P. -wheezes, -rales, -rhonchi. Symmetrical chest rise. No increased work of breathing. No respiratory distress. Cardiac: RRR, -mrg. Radial pulses intact and symmetrical. Abdominal: Tender to palpation at umbilicus, midline suprapubic region, and slightly at right lower quadrant. Extremities: Endorses some discomfort in her right hip laterally and anteriorly, tolerates passive hip flexion, internal rotation, external rotation without severe pain. Does endorse some tenderness to superficial palpation at the lateral right hip. Sensation in feet intact bilaterally. PT pulse intact bilaterally Results & Data Results & Data Vital Signs (Past 12 Hours) Vital Signs Temp Pulse Pulse Resp BP BP Pulse Ox 12/20/22 15:00 68 18 148/81 H 96 12/20/22 14:25 68 12/20/22 13:00 78 18 159/76 H 98 12/20/22 11:21 36.6 C 76 20 142/65 H 96 O2 Del Method 12/20/22 15:00 Room Air 12/20/22 14:25 12/20/22 13:00 Room Air 12/20/22 11:21 Room Air PG Care Time/CCT Total # of Minutes Spent Total Time Spent with Patient: Total time spent is greater than 50% in coordination of care (as documented) at patient's floor/unit and/or counseling patient: Coding Level of Care Code 69750 INT INP/OBS CARE 3/75MIN Diagnoses Acute UTI (urinary tract infection) N39.0 Ataxia R27.0 DM type 2 (diabetes mellitus, type 2) E11.9 S/P deep brain stimulator placement Z96.89 Orthostatic hypotension I95.1 Acute dehydration E86.0
[2022-12-20] MEDS ORDERED: GLUCOSE 40% GEL 15 GM TUBE PO PRN (17:43)
[2022-12-20] MEDS ORDERED: DEXTROSE 50% 50 ML SYRINGE IV PRN (17:43)
[2022-12-20] MEDS ORDERED: GLUCAGON FOR INJ 1 MG VIAL SQ PRN (17:43)
[2022-12-20] MEDS ORDERED: GLUCOSE 10 TAB/TUBE PO PRN (17:43)
[2022-12-20] MEDS ORDERED: CARBOHYDRATES FOR HYPOGLYCEMIA PO PRN (17:43)
[2022-12-20] MEDS ORDERED: PLASMA-LYTE A 1,000 ML IV SCH (18:30)
[2022-12-20 18:31] LABS: Cdiff Toxin B Gene (2yr or >) Positive Cdiff Gene (Neg)
[2022-12-20] MEDS: HYDROmorphone INJ 0.5 MG/0.5 ML SYR IV PRN ×2 (19:30→23:50)
[2022-12-20 19:54] LABS: Cdiff Antigen Positive; Cdiff Toxin A+B Negative Cdiff Toxin (Negative)
[2022-12-20] MEDS: PRIMIDONE 50 MG TAB PO SCH (20:56)
[2022-12-20] MEDS: ACETAMINOPHEN 325 MG TAB PO PRN (20:57)
[2022-12-20] MEDS: CARBIDOPA/LEVODOPA 25/100MG TAB PO SCH (20:57)
[2022-12-20] MEDS: INSULIN ASPART PER UNIT CHARGE SC SCH (21:39)
[2022-12-20] MEDS: LANTUS PER UNIT CHARGE SQ SCH (21:40)
[2022-12-20] MEDS: ROSUVASTATIN CALCIUM 20 MG TAB PO SCH (23:05)
[2022-12-20] MEDS: LIDOCAINE 5% 1 PATCH TD PRN (23:56)
[2022-12-21] MEDS: ACETAMINOPHEN 325 MG TAB PO PRN ×2 (04:43→15:27)
[2022-12-21] MEDS: HYDROmorphone INJ 0.5 MG/0.5 ML SYR IV PRN ×3 (05:05→21:44)
[2022-12-21 07:57] LABS: Basophils # (auto) 0.02 K/uL (0.00-0.20); Basophils % (auto) 0.5 %; Hematocrit (blood only) 32.2 % (37.0-47.0); Immature Granulocytes # (auto) 0.01 K/uL (0.01-0.20); Immature Granulocytes % (auto) 0.2 %; Lymphocytes % (auto) 29.5 %; Mean Corpuscular Hemoglobin 28.4 pg (25.0-34.0); Mean Corpuscular Hgb Conc 34.2 g/dL (32.0-36.0); Mean Corpuscular Volume 83.2 fL (80.0-100.0); Mean Platelet Volume 10.1 fL (9.4-12.4); Monocytes % (auto) 9.1 %; Neutrophils # (auto) 2.68 K/uL (1.40-6.50); Neutrophils % (auto) 60.7 %; Platelet Count 151 K/uL (130-400); RDW Coefficient of Variation 13.4 % (11.5-14.5); RDW Standard Deviation 40.4 fL (36.4-46.3); Red Blood Count 3.87 M/uL (4.20-5.40); White Blood Count 4.41 K/ul (4.8-10.8)
[2022-12-21 08:12] LABS: BUN Creatinine Ratio 17.2 (10-20); Calcium 8.3 mg/dl (8.6-10.3); Creatinine Clr Calc Pharmacy 69.4 ml/min; Est GFR (African American) 98.4 ml/min; Est GFR (Non-African American) 84.9 ml/min; Potassium 3.3 mmol/L (3.5-5.1)
[2022-12-21] MEDS: INSULIN ASPART PER UNIT CHARGE SC SCH ×4 (09:06→21:38)
[2022-12-21] MEDS: LANTUS PER UNIT CHARGE SQ SCH ×2 (09:11→21:38)
[2022-12-21] MEDS: PRIMIDONE 50 MG TAB PO SCH ×2 (09:13→21:40)
[2022-12-21] MEDS: CARBIDOPA/LEVODOPA 25/100MG TAB PO SCH ×3 (09:13→21:40)
[2022-12-21] MEDS: MULTIVITAMIN TAB PO SCH (09:14)
[2022-12-21] MEDS: ESCITALOPRAM OXALATE 20 MG TAB PO SCH (09:14)
--- NOTE | 2022-12-21 13:11 | Hospitalist Progress Note ---
Date of Service December 21, 2022 Assessment & Plan (1) Acute UTI (urinary tract infection): Plan: Abdominal pain, suspect UTI Last week 12/14, Patient with UTI showing Klebsiella pneumonia UTI, resistant to Bactrim and intermediate resistance to Unasyn. Patient was switched from Bactrim to Augmentin, has had worsening pain in her abdomen with some radiation into the right lower extremity. - Did have a CT with contrast this week, shows evidence of cystitis and ovarian cyst, will defer repeat CT unless she continues to worsen despite antibiotic change. Continue Rocephin, both recent isolates are susceptible to this -If pain does not improve, may repeat CT to reassess the ovarian cysts, could be a rupture (2) Ataxia: Plan: Secondary parkinsonism, cognitive decline Follows with neurology as outpatient. Had bilateral upper extremity essential tremor severe, went DBS placement 2013, and subsequently with dysarthria/ataxia. Follows with [facility] [facility] intermittently. Continued on primidone and carbidopalevodopa, but is not suspected to have classic Parkinson's disease. Has been noted to have memory loss and suspected early dementia on prior follow- ups. Low suspicion for Alzheimer's Continue carbidopalevodopa Patient is with cognitive decline but no hallucinations and does not have a diagnosis of Lewy body disease Per patient's daughter normally Jackie has intact and relatively normal mentation and is significantly different from her usual baseline in the last day. We will treat UTI as noted. Suspect acute deviation from baseline with incompletely treated infection with some baseline chronic memory decline PT/OT pending (3) DM type 2 (diabetes mellitus, type 2): Plan: Type II DM Recent total daily insulin dose approximately 20 units short acting + lantus 28u daily. - Continue lantus 14u BID, SSI BSG 161 on admission Goal BSG [id number] (4) S/P deep brain stimulator placement: Plan: As no (5) Orthostatic hypotension: Plan: Orthostatic hypotension Possible side effect of carbidopa levodopa, but patient has had significant therapeutic benefit from this and is not recommended to be held Noted, normotensive on assessment (6) Acute dehydration: Plan DVT prophylaxis: Dose reduce Lovenox CODE STATUS: DNR/DNI. Patient formally full code. Did discuss with Nadia and her family at bedside, Jackie reports that in the event of a cardiac or pulmonary arrest she would not want brought back and would want providers to "let me go ". This is a change from prior CODE STATUS, updated Diet: Type II DM Disposition: Med/surge Admission and Anticipated Discharge Date Admission Date: December 20, 2022 Subjective patient seen and examined, feels a little better, still has some right lower abdominal pain Review of Systems Review of Systems: All systems reviewed are negative, apart from the ones contained in the history. Physical Exam Physical Exam: The patient is awake, alert and oriented 3, well developed and well nourished, normocephalic and atraumatic, lying in bed and in no acute distress. HEENT--PERRL, EOMI, mucous membranes and oropharynx mildly dry Neck--supple. No JVD. No bruits. Thyroid normal, trachea midline, no adenopathy. Heart--normal S1 and S2. No murmurs, rubs or gallops. Lungs--clear bilaterally, no respiratory distress, no accessory muscle use. Abdomen--normal bowel sounds and soft. Mild right lower abd tenderness Extremities--no cyanosis or clubbing. No edema. Dermatologic--normal skin turgor, normal color, no abnormal lymph nodes, no rash. Neurologic--cranial nerves II through XII grossly intact. Rheumatologic--normal range of motion. Psychiatric--normal affect. Results & Data Results & Data Vital Signs (Past 12 Hours) Vital Signs Temp Pulse Resp BP Pulse Ox O2 Del Method 12/21/22 06:56 97.7 F 69 16 136/77 94 Room Air PG Care Time/CCT Total # of Minutes Spent Total Time Spent with Patient: Total time spent is greater than 50% in coordination of care (as documented) at patient's floor/unit and/or counseling patient: Coding Level of Care Code 02042 SUB INP/OBS CARE 2/35MIN Diagnoses Acute UTI (urinary tract infection) N39.0 Ataxia R27.0 DM type 2 (diabetes mellitus, type 2) E11.9 S/P deep brain stimulator placement Z96.89 Orthostatic hypotension I95.1 Acute dehydration E86.0 Time Spent (min) 35
[2022-12-21] MEDS: cefTRIAXone SODIUM 2,000 MG in DEXTROSE 5 % MINI-B 50 ML IV SCH (18:22)
[2022-12-21] MEDS: ROSUVASTATIN CALCIUM 20 MG TAB PO SCH (21:40)
[2022-12-22] MEDS: HYDROmorphone INJ 0.5 MG/0.5 ML SYR IV PRN ×5 (03:05→22:40)
[2022-12-22] MEDS: LIDOCAINE 5% 1 PATCH TD PRN (03:11)
[2022-12-22] MEDS: ACETAMINOPHEN 325 MG TAB PO PRN ×4 (06:22→20:45)
[2022-12-22] MEDS: DICLOFENAC SOD 1% GEL 100 GM TUBE EXT PRN (06:40)
[2022-12-22 08:31] LABS: Basophils # (auto) 0.02 K/uL (0.00-0.20); Basophils % (auto) 0.4 %; Hematocrit (blood only) 33.9 % (37.0-47.0); Hemoglobin 11.5 g/dl (12.0-16.0); Immature Granulocytes # (auto) 0.01 K/uL (0.01-0.20); Immature Granulocytes % (auto) 0.2 %; Lymphocytes # (auto) 1.48 K/uL (1.20-3.40); Lymphocytes % (auto) 28.2 %; Mean Corpuscular Hemoglobin 28.5 pg (25.0-34.0); Mean Corpuscular Hgb Conc 33.9 g/dL (32.0-36.0); Mean Corpuscular Volume 83.9 fL (80.0-100.0); Mean Platelet Volume 10.1 fL (9.4-12.4); Monocytes # (auto) 0.45 K/uL (0.11-0.59); Monocytes % (auto) 8.6 %; Neutrophils # (auto) 3.28 K/uL (1.40-6.50); Neutrophils % (auto) 62.6 %; Platelet Count 162 K/uL (130-400); RDW Coefficient of Variation 13.2 % (11.5-14.5); RDW Standard Deviation 40.2 fL (36.4-46.3); Red Blood Count 4.04 M/uL (4.20-5.40); White Blood Count 5.24 K/ul (4.8-10.8)
[2022-12-22] MEDS: CARBIDOPA/LEVODOPA 25/100MG TAB PO SCH ×3 (08:37→20:36)
[2022-12-22] MEDS: ESCITALOPRAM OXALATE 20 MG TAB PO SCH (08:38)
[2022-12-22] MEDS: MULTIVITAMIN TAB PO SCH (08:38)
[2022-12-22] MEDS: PRIMIDONE 50 MG TAB PO SCH ×2 (08:39→20:36)
[2022-12-22 08:57] LABS: BUN Creatinine Ratio 17.6 (10-20); Calcium 8.7 mg/dl (8.6-10.3); Creatinine Clr Calc Pharmacy 65.3 ml/min; Est GFR (African American) 96.4 ml/min; Est GFR (Non-African American) 83.2 ml/min; Potassium 3.5 mmol/L (3.5-5.1)
[2022-12-22] MEDS: INSULIN ASPART PER UNIT CHARGE SC SCH ×4 (09:17→20:46)
[2022-12-22] MEDS: LANTUS PER UNIT CHARGE SQ SCH ×2 (09:17→20:46)
[2022-12-22] MEDS: CHERRY SYRUP 5 ML UDP PO SCH ×3 (13:32→23:09)
[2022-12-22] MEDS: VANCOMYCIN HCL 125 MG/2.5ML SOLN PO SCH ×3 (13:32→23:09)
--- NOTE | 2022-12-22 18:15 | Hospitalist Progress Note ---
Date of Service December 22, 2022 Assessment & Plan (1) Acute UTI (urinary tract infection): Plan: Abdominal pain, suspect UTI Last week 12/14, Patient with UTI showing Klebsiella pneumonia UTI, resistant to Bactrim and intermediate resistance to Unasyn. Patient was switched from Bactrim to Augmentin, has had worsening pain in her abdomen with some radiation into the right lower extremity. - Did have a CT with contrast this week, shows evidence of cystitis and ovarian cyst, will defer repeat CT unless she continues to worsen despite antibiotic change. Continue Rocephin, both recent isolates are susceptible to this -If pain does not improve, may repeat CT to reassess the ovarian cysts, could be a rupture Patient complains of right hip pain. Ordered CT right hip to rule out a fracture that could have been missed by the x-rays. (2) Ataxia: Plan: Secondary parkinsonism, cognitive decline Follows with neurology as outpatient. Had bilateral upper extremity essential tremor severe, went DBS placement 2013, and subsequently with dysarthria/ataxia. Follows with [facility]ently. Continued on primidone and carbidopalevodopa, but is not suspected to have classic Parkinson's disease. Has been noted to have memory loss and suspected early dementia on prior follow- ups. Low suspicion for Alzheimer's Continue carbidopalevodopa Patient is with cognitive decline but no hallucinations and does not have a diagnosis of Lewy body disease Per patient's daughter normally Jackie has intact and relatively normal mentation and is significantly different from her usual baseline in the last day. We will treat UTI as noted. Suspect acute deviation from baseline with incompletely treated infection with some baseline chronic memory decline PT/OT (3) DM type 2 (diabetes mellitus, type 2): Plan: Type II DM Recent total daily insulin dose approximately 20 units short acting + lantus 28u daily. - Continue lantus 14u BID, SSI BSG 161 on admission Goal BSG [id number] (4) S/P deep brain stimulator placement: (5) Orthostatic hypotension: Plan: Orthostatic hypotension Possible side effect of carbidopa levodopa, but patient has had significant therapeutic benefit from this and is not recommended to be held Noted, normotensive on assessment (6) Acute dehydration: Plan DVT prophylaxis: Dose reduce Lovenox CODE STATUS: DNR/DNI. Patient formally full code. Did discuss with Nadia and her family at bedside, Jackie reports that in the event of a cardiac or pulmonary arrest she would not want brought back and would want providers to "let me go ". This is a change from prior CODE STATUS, updated Diet: Type II DM Disposition: Med/surge Admission and Anticipated Discharge Date Admission Date: December 21, 2022 Subjective daughter in the room states that the patient is very sensitive to pain. She is always screaming and yelling in pain. This is not new for her. The patient is a very poor historian. Review of Systems Review of Systems: All systems reviewed & are unremarkable except as noted in Subjective Physical Exam Physical Exam: General: Awake, conversant. Pleasantly confused. Appears distressed. Very sensitive to touch. Heart: S1, S2/regular rate and rhythm, no murmur rubs or gallops Lungs: Clear to auscultation bilaterally. Normal effort Abdomen: Soft/nondistended. Tenderness to palpation diffusely all over her abdomen without rebound, rigidity or guarding. No hepatosplenomegaly Extremities: No clubbing/cyanosis. No edema Behavior: Appropriate, cooperative Results & Data Results & Data Vital Signs (Past 12 Hours) Vital Signs Temp Pulse Resp BP Pulse Ox O2 Del Method 12/22/22 15:37 36.7 C 72 18 144/80 H 94 Room Air 12/22/22 07:03 36.6 C 66 18 114/63 94 Room Air PG Care Time/CCT Total # of Minutes Spent Total Time Spent with Patient: Total time spent is greater than 50% in coordination of care (as documented) at patient's floor/unit and/or counseling patient: Coding Level of Care Code 43536 SUB INP/OBS CARE 2/35MIN Diagnoses Acute UTI (urinary tract infection) N39.0 Ataxia R27.0 DM type 2 (diabetes mellitus, type 2) E11.9 S/P deep brain stimulator placement Z96.89 Orthostatic hypotension I95.1 Acute dehydration E86.0
[2022-12-22] MEDS: cefTRIAXone SODIUM 2,000 MG in DEXTROSE 5 % MINI-B 50 ML IV SCH (18:16)
--- NOTE | 2022-12-22 20:12 | CT Scan Report ---
Exam(s): CT RIGHT HIP Without Contrast EXAM: CT Right Lower Extremity Without Intravenous Contrast, Hip CLINICAL HISTORY: Reason for exam: R hip pain. TECHNIQUE: Axial computed tomography images of the right hip without intravenous contrast. CTDI is 26.57 mGy and DLP is 622.47 mGy-cm. Automated exposure control was utilized for the study. A dose lowering technique was utilized adhering to the principles of ALARA. COMPARISON: No relevant prior studies available. FINDINGS: Bones/joints: Osseous demineralization. Degenerative changes of the pubic symphysis and include portions of the RIGHT sacroiliac joint. No acute fracture or dislocation. Soft tissues: Fat-containing RIGHT inguinal hernia. Reproductive: Hysterectomy. IMPRESSION: No acute fracture or dislocation. If there is concern for internal derangement, MRI recommended. Electronically signed by: Chas De La Vega MD 12/22/22 20:11 PM
[2022-12-22] MEDS: ROSUVASTATIN CALCIUM 20 MG TAB PO SCH (20:36)
[2022-12-23] MEDS: DICLOFENAC SOD 1% GEL 100 GM TUBE EXT PRN (01:32)
[2022-12-23] MEDS ORDERED: LIDOCAINE 5% 1 PATCH TD STA (02:01)
[2022-12-23] MEDS ORDERED: KETOROLAC TROMETHAMINE 15 MG/ML VIAL IV ONE (02:15)
[2022-12-23] MEDS: HYDROmorphone INJ 0.5 MG/0.5 ML SYR IV PRN ×4 (05:05→21:27)
[2022-12-23] MEDS: CHERRY SYRUP 5 ML UDP PO SCH ×3 (05:28→18:44)
[2022-12-23] MEDS: VANCOMYCIN HCL 125 MG/2.5ML SOLN PO SCH ×3 (05:28→18:44)
[2022-12-23 08:34] LABS: Hematocrit (blood only) 33.3 % (37.0-47.0); Hemoglobin 11.6 g/dl (12.0-16.0); Mean Corpuscular Volume 83.3 fL (80.0-100.0); White Blood Count 5.52 K/ul (4.8-10.8)
[2022-12-23 08:35] LABS: Basophils # (auto) 0.02 K/uL (0.00-0.20); Basophils % (auto) 0.4 %; Immature Granulocytes # (auto) 0.03 K/uL (0.01-0.20); Immature Granulocytes % (auto) 0.5 %; Lymphocytes % (auto) 30.8 %; Mean Corpuscular Hgb Conc 34.8 g/dL (32.0-36.0); Mean Platelet Volume 10.1 fL (9.4-12.4); Monocytes # (auto) 0.42 K/uL (0.11-0.59); Monocytes % (auto) 7.6 %; Neutrophils # (auto) 3.35 K/uL (1.40-6.50); Neutrophils % (auto) 60.7 %; Platelet Count 158 K/uL (130-400); RDW Coefficient of Variation 13.1 % (11.5-14.5); RDW Standard Deviation 39.9 fL (36.4-46.3)
[2022-12-23 08:39] LABS: BUN Creatinine Ratio 17.9 (10-20); Calcium 8.9 mg/dl (8.6-10.3); Creatinine Clr Calc Pharmacy 66.3 ml/min; Est GFR (African American) 96.9 ml/min; Est GFR (Non-African American) 83.6 ml/min; Potassium 3.3 mmol/L (3.5-5.1)
[2022-12-23] MEDS: CARBIDOPA/LEVODOPA 25/100MG TAB PO SCH ×3 (08:47→21:31)
[2022-12-23] MEDS: ESCITALOPRAM OXALATE 20 MG TAB PO SCH (08:48)
[2022-12-23] MEDS: MULTIVITAMIN TAB PO SCH (08:48)
[2022-12-23] MEDS: PRIMIDONE 50 MG TAB PO SCH ×2 (08:48→21:32)
[2022-12-23] MEDS: INSULIN ASPART PER UNIT CHARGE SC SCH ×4 (08:57→21:46)
[2022-12-23] MEDS: LANTUS PER UNIT CHARGE SQ SCH ×2 (08:58→21:49)
--- NOTE | 2022-12-23 09:12 | Hospitalist Progress Note ---
Date of Service December 23, 2022 Assessment & Plan (1) Acute UTI (urinary tract infection): Plan: Abdominal pain, suspected 2nd UTI * Last week 12/14, Patient with UTI showing Klebsiella pneumonia UTI, resistant to Bactrim and intermediate resistance to Unasyn. * Patient was switched from Bactrim to Augmentin, has had worsening pain in her abdomen with some radiation into the right lower extremity. CTAP earlier this week w/ cystitis/ovarian cyst. Continue Rocephin, both recent isolates are susceptible to this If pain does not improve, may repeat CT to reassess the ovarian cysts, could be a rupture Patient complains of right hip pain. Ordered CT right hip to rule out a fracture that could have been missed by the x-rays. (NEGATIVE) ?If pain on right related to 4.2cm R ovarian cyst, also noting RIGHT fat containing inguinal hernia --> will need to discuss obtaining pelvic US for further eval w/ daughter as well (Sierra [place] [phone]). She was agreeable to have this ordered for her mother for eval. Consider [facility] consult pending eval Has been given PO Vancomycin for complaints of diarrhea and + cdiff gene but negative toxin - can continue while on abx but would not continue WBC wnl, afebrile. Repeat urine cx NEGATIVE (2) Ataxia: Plan: Secondary parkinsonism, cognitive decline Follows with neurology as outpatient. Had bilateral upper extremity essential tremor severe, went DBS placement 2013, and subsequently with dysarthria/ataxia. Follows with [facility] [place] [facility] intermittently. Continued on primidone and carbidopalevodopa, but is not suspected to have classic Parkinson's disease. Has been noted to have memory loss and suspected early dementia on prior follow- ups. Low suspicion for Alzheimer's Continue carbidopalevodopa Patient is with cognitive decline but no hallucinations and does not have a diagnosis of Lewy body disease Per patient's daughter normally Jackie has intact and relatively normal mentation and is significantly different from her usual baseline in the last day. We will treat UTI as noted. Suspect acute deviation from baseline with incompletely treated infection with some baseline chronic memory decline PT/OT consults ordered CT of RIGHT hip obtained due to pain --> no acute fracture or dislocation. If concerns for internal derangement, MRI recommended *Of note, patient w/ 4.2 cm cystic focus within the right hemipelvis. This likely arises from the right ovary. This may reflect a cyst however is abnormal in a postmenopausal patient and follow-up nonemergent pelvic ultrasound is recommended to assess for complexity. ?If this is the location for her pain reported to her right groin/hip Pelvic US for futher eval ordered (3) DM type 2 (diabetes mellitus, type 2): Plan: Type II DM Recent total daily insulin dose approximately 20 units short acting + lantus 28u daily. - Continue lantus 14u BID, SSI BSG 161 on admission Goal BSG [id number] BSGs acceptable and will monitor (4) S/P deep brain stimulator placement: (5) Orthostatic hypotension: Plan: Orthostatic hypotension Possible side effect of carbidopa levodopa, but patient has had significant therapeutic benefit from this and is not recommended to be held Noted, normotensive on assessment (6) Acute dehydration: Plan: s/p IVF, holding further (7) Hypokalemia: Plan: 3.3, PO ordered. Mag wnl Monitor levels on repeat Plan DVT prophylaxis: Lovenox CODE STATUS: DNR/DNI. Patient formally full code. Did discuss with Nadia and her family at bedside, Jackie reports that in the event of a cardiac or pulmonary arrest she would not want brought back and would want providers to "let me go " Continued inpatient stay, PT [facility]. From [facility], referrals sent to [facility] following Updated daughter by phone this morning Admission and Anticipated Discharge Date Admission Date: December 21, 2022 Subjective Evaluated this morning. Pain controlled to her right hip, noting she just got dilaudid prior to OT working with her. When asked where the pain was, she motioned to the anterior/lateral thigh. No obvious protruding hernia but does have fat containing hernia on prior imaging, also ovarian cyst. Patient denies any fevers/chills. No chest pain. She notes chronic shortness of breath at times but nothing increased recently. Discussed calling her daughter. She is ok w/ calling daughter or her daughter in law. Good appetite reported. Only other time she's been that painful was when she fractured her tailbone and was inquiring about repeating imaging for her mothers hip. Discussed CT last night negative, could consider MRI but discussed ovarian cyst/eval as well. Daughter agreeable to just have the pelvic US ordered rather than consultation w/ [employer] first and will see about need for consultation pending imaging. Did discuss invasive test, and if patient becomes combative we will discontinue. Questions/concerns addressed at this time. Physical Exam Physical Exam: General: WD elderly female sitting up at side of bed, working with therapy, NAD HEENT: head atraumatic, normocephalic, mmm, trachea midline Resp; CTA, no w/c/r, on RA CV: RRR< no significant m/r/g, no pitting edema/calf tenderness GI: +BS, slight distension, no overt tenderness/guarding/rigidity MSK/Neuro: no pain to palpation of RIGHT hip, but reporting tenderness along IT band/along groin no appreciable hernia on exam, no bruising/ecchymosis Psych: alert to person, knows in hospital, no oriented to time/year Results & Data Results & Data Vital Signs (Past 12 Hours) Vital Signs Temp Pulse Resp BP BP Pulse Ox O2 Del Method 12/23/22 07:09 36.4 C L 66 18 168/80 H 171/82 H 96 Room Air Laboratory Results 12/23/22 12/23/22 12/23/22 Range/Units 07:58 07:46 07:46 WBC 5.52 (4.8-10.8) K/ul RBC 4.00 L (4.20-5.40) M/uL Hgb 11.6 L (12.0-16.0) g/dl Hct 33.3 L (37.0-47.0) % MCV 83.3 (80.0-100.0) fL MCH 29.0 (25.0-34.0) pg MCHC 34.8 (32.0-36.0) g/dL RDW Std Deviation 39.9 (36.4-46.3) fL RDW Coeff of Sunitha 13.1 (11.5-14.5) % Plt Count 158 (130-400) K/uL MPV 10.1 (9.4-12.4) fL Immature Gran % (Auto) 0.5 % Neut % (Auto) 60.7 % Lymph % (Auto) 30.8 % [place] % (Auto) 7.6 % Eos % (Auto) 0.0 % Baso % (Auto) 0.4 % Neut # (Auto) 3.35 (1.40-6.50) K/uL Lymph # (Auto) 1.70 (1.20-3.40) K/uL [place] # (Auto) 0.42 (0.11-0.59) K/uL Eos # (Auto) 0.00 (0.00-0.50) K/uL Baso # (Auto) 0.02 (0.00-0.20) K/uL Immature Gran # (Auto) 0.03 (0.01-0.20) K/uL Sodium 141 (136-145) mmol/L Potassium 3.3 L (3.5-5.1) mmol/L Chloride 106 (98-107) mmol/L Carbon Dioxide 28 (21-32) mmol/L Anion Gap 7 (3-11) BUN 12 (6-23) mg/dl Creatinine 0.67 (0.6-1.2) mg/dl Est Cr Clr Drug Dosing 66.3 ml/min Est GFR ( Amer) 96.9 ml/min Est GFR (Non-Af Amer) 83.6 ml/min BUN/Creatinine Ratio 17.9 (10-20) Glucose 136 H (70-99(Fasting)) mg/dl POC Glucose 133 H (70-99) mg/dl Calcium 8.9 (8.6-10.3) mg/dl 12/22/22 12/22/22 12/22/22 Range/Units 20:21 16:58 11:33 WBC (4.8-10.8) K/ul RBC (4.20-5.40) M/uL Hgb (12.0-16.0) g/dl Hct (37.0-47.0) % MCV (80.0-100.0) fL MCH (25.0-34.0) pg MCHC (32.0-36.0) g/dL RDW Std Deviation (36.4-46.3) fL RDW Coeff of Sunitha (11.5-14.5) % Plt Count (130-400) K/uL MPV (9.4-12.4) fL Immature Gran % (Auto) % Neut % (Auto) % Lymph % (Auto) % [place] % (Auto) % Eos % (Auto) % Baso % (Auto) % Neut # (Auto) (1.40-6.50) K/uL Lymph # (Auto) (1.20-3.40) K/uL [place] # (Auto) (0.11-0.59) K/uL Eos # (Auto) (0.00-0.50) K/uL Baso # (Auto) (0.00-0.20) K/uL Immature Gran # (Auto) (0.01-0.20) K/uL Sodium (136-145) mmol/L Potassium (3.5-5.1) mmol/L Chloride (98-107) mmol/L Carbon Dioxide (21-32) mmol/L Anion Gap (3-11) BUN (6-23) mg/dl Creatinine (0.6-1.2) mg/dl Est Cr Clr Drug Dosing ml/min Est GFR ( Amer) ml/min Est GFR (Non-Af Amer) ml/min BUN/Creatinine Ratio (10-20) Glucose (70-99(Fasting)) mg/dl POC Glucose 167 H 112 H 223 H (70-99) mg/dl Calcium (8.6-10.3) mg/dl Diagnostic Findings Hip CT 12/22/22 18:07 Exam(s): CT RIGHT HIP Without Contrast EXAM: CT Right Lower Extremity Without Intravenous Contrast, Hip CLINICAL HISTORY: Reason for exam: R hip pain. TECHNIQUE: Axial computed tomography images of the right hip without intravenous contrast. CTDI is 26.57 mGy and DLP is 622.47 mGy-cm. Automated exposure control was utilized for the study. A dose lowering technique was utilized adhering to the principles of ALARA. COMPARISON: No relevant prior studies available. FINDINGS: Bones/joints: Osseous demineralization. Degenerative changes of the pubic symphysis and include portions of the RIGHT sacroiliac joint. No acute fracture or dislocation. Soft tissues: Fat-containing RIGHT inguinal hernia. Reproductive: Hysterectomy. IMPRESSION: No acute fracture or dislocation. If there is concern for internal derangement, MRI recommended. Electronically signed by: Chas De La Vega MD 12/22/22 20:11 PM PG Care Time/CCT Total # of Minutes Spent Total Time Spent with Patient: Total time spent is greater than 50% in coordination of care (as documented) at patient's floor/unit and/or counseling patient: Coding Level of Care Code 71915 SUB INP/OBS CARE 3/50MIN Diagnoses Acute UTI (urinary tract infection) N39.0 Ataxia R27.0 DM type 2 (diabetes mellitus, type 2) E11.9 S/P deep brain stimulator placement Z96.89 Orthostatic hypotension I95.1 Acute dehydration E86.0 Hypokalemia E87.6
[2022-12-23] MEDS ORDERED: POTASSIUM CHLORIDE CRTAB 20 MEQ TABCR PO STA (09:19)
[2022-12-23] MEDS: FAMOTIDINE 20 MG in SYRINGE 3 ML IV SCH (10:39)
--- NOTE | 2022-12-23 13:23 | Ultrasound Report ---
ULTRASOUND OF THE PELVIS CLINICAL HISTORY: Right pelvic pain. Follow-up cyst. COMPARISON STUDY: Pelvic CT dated 12/16/2022 TECHNIQUE: Real-time, grayscale, and color flow sonography of the pelvis is performed both transabdom inally and endovaginally. Images are reviewed in the transverse and longitudinal planes. The endovagi nal examination was performed for better evaluation of the adnexa. FINDINGS: Uterus: The uterus is surgically absent. Ovaries: The ovaries are not visualized on the transabdominal or endovaginal imaging due to overlying bowel. The cystic lesion in the right adnexa seen by CT is not visualized by ultrasound. Pelvis: There is no free fluid in the cul-de-sac. No concerning adnexal lesion is seen. IMPRESSION: 1. Status post hysterectomy. 2. The ovaries were not visualized due to overlying bowel gas. 3. The cystic right adnexal lesion seen by CT is not visualized by ultrasound. 4. No adnexal lesion is identified. ACT 112: Negative or not required by law. Electronically signed by: Julio C Rodriguez M.D. 12/23/2022 1:22 PM
[2022-12-23] MEDS: cefTRIAXone SODIUM 2,000 MG in DEXTROSE 5 % MINI-B 50 ML IV SCH (17:32)
--- NOTE | 2022-12-23 19:58 | Consultation ---
Date of Consultation December 23, 2022 Assessment & Plan (1) Ovarian cyst, right: Would not do any further work-up if the patient has any abdominal pain with repeating ultrasound in several months thank you for the consult History of Present Illness Requesting Physician: Dr. Harrison Reason for Consultation: Patient with ovarian cyst Attending Physician: Marquis Hernandez MD History of Present Illness 77-year-old female para 3-0-0-3 status post hysterectomy presents for consultation due to possible ovarian cyst. The patient is currently being admitted for possible urinary tract infection it was noted on an incidental finding on CAT scan that she had a right ovarian cyst 4.2 cm with a uterus that was absent and no fluid in the cul-de-sac. A transvaginal and abdominal ultrasound were performed and the cyst was not visualized. The patient is not having any vaginal bleeding nor is she having any abdominal pain. She is unsure why she had the hysterectomy but it was several years ago. She has had 3 vaginal deliveries. At this point I would not do any further work-up she is stable and no definite cyst was found on vaginal ultrasound including transvaginal which is more sensitive than a CT scan in detecting ovarian cysts. Allergies Allergy/AdvReac Type Severity Reaction Status Date / Time levetiracetam Allergy Intermediate Rash Verified 12/20/22 17:03 adhesive tape Allergy Mild Rash Verified 12/20/22 17:03 naproxen Allergy Mild RASH Verified 12/20/22 17:03 morphine Allergy Unknown Unknown Verified 12/20/22 17:03 Home Medications Medication Instructions Recorded Confirmed Type cholecalciferol (vitamin D3) 50 2,000 unit PO QAM 09/08/18 12/20/22 History mcg (2,000 unit) tablet (Vitamin D3) cyanocobalamin (vitamin B-12) 1,000 mcg PO QAM 09/08/18 12/20/22 History 1,000 mcg tablet (Vitamin B-12) acetaminophen 325 mg tablet 650 mg PO Q4H PRN Fever Or Pain 05/13/21 12/20/22 History lidocaine 4 % topical patch 1 patch topical DAILY PRN Pain 06/03/21 12/20/22 History olopatadine 0.7 % eye drops 1 drp OPB QAM 03/04/22 12/20/22 History (Pataday Once Daily Relief) ondansetron HCl 4 mg tablet 4 mg PO Q8H PRN nausea and 05/19/22 12/20/22 Rx vomiting #20 tabs loperamide 2 mg capsule 2 mg PO Q4H PRN Loose Stool 07/07/22 12/20/22 History (Anti-Diarrheal (loperamide)) metformin 500 mg tablet 500 mg PO BIDM 30 days #60 tabs 07/23/22 12/20/22 Rx pen needle, diabetic 31 gauge x #100 ea 08/17/22 12/16/22 Rx 3/16" (Sure-Fine Pen [place]) multivitamin (Daily-Devin tablet) 1 tab PO DAILY 09/03/22 12/20/22 History olopatadine 0.7 % eye drops 1 drp OPB QPM PRN itchy eyes 09/03/22 12/20/22 History (Pataday Once Daily Relief) carbidopa 25 mg-levodopa 100 mg 2 tab PO TID 30 days #180 tabs 09/09/22 12/20/22 Rx tablet diclofenac sodium 1 % topical gel 2 g topical QID PRN coccyx pain 09/11/22 12/20/22 Rx #100 grams fluticasone propionate 50 1 spray intranasal BID #16 grams 10/20/22 12/20/22 Rx mcg/actuation nasal spray,suspension insulin glargine 100 unit/mL (3 28 unit (0.28 mL) subcut QPM #15 mL 11/11/22 12/20/22 Rx mL) subcutaneous pen (Lantus Solostar U-100 Insulin) amoxicillin 500 mg-potassium 1 tab PO BID #20 tabs 12/17/22 12/20/22 Rx clavulanate 125 mg tablet (Augmentin) escitalopram oxalate 20 mg tablet 20 mg PO DAILY #30 tabs 12/17/22 12/20/22 Rx primidone 50 mg tablet 100 mg PO BID #120 tabs 12/17/22 12/20/22 Rx rosuvastatin 20 mg tablet 20 mg PO HS #30 tabs 12/17/22 12/20/22 Rx nitrofurantoin macrocrystal 50 mg 50 mg PO QPM 12/20/22 12/20/22 History capsule (Macrodantin) Patient History Medical History Acute UTI Asthma Chest pain Coccygeal fracture Constipation Elevated AST (SGOT) Fall Fall GERD (gastroesophageal reflux disease) resolved, off PPI Nausea Recurrent urinary tract infection Sensorineural hearing loss (SNHL) of both ears Tubular adenoma of colon Surgical History S/P cholecystectomy S/P deep brain stimulator placement (08/20/16) S/P sinus surgery Status post tubal ligation Family History Father Cancer Mother Depression Hypertension Stroke Grandmother Breast cancer Mother Myocardial infarction Denies family history of Ovarian cancer Prostate cancer Colorectal cancer Social History Smoking Status: Never smoker Second Hand Exposure: No; Do You Dip or Chew Tobacco: No; Hx Alcohol Use: No Hx Substance Use: No Preferred Language: Icelandic Communication Ability: Effective Dining Room Supervisor Required: No Beliefs That Will Affect Care: None marital status: / Current Living Situation: Retirement current occupational status: retired Feels Safe at Home: Yes caffeine: Yes Dental Care, Regularly: No Physical Activity Frequency: Does not Exercise Seatbelt Use: always Sunscreen Use: No Assistive Devices: Denture - Upper, Denture - Lower and Walker Physical Exam Constitutional: WD/WN, vitals as above Gastrointestinal (Abdomen): Abdomen is soft and nontender there is no apparent mass no guarding or rebound or any fluid wave. Results & Data Vital Signs (Past 12 Hours) Vital Signs Temp Pulse Resp BP Pulse Ox O2 Del Method 12/23/22 08:00 Room Air 12/23/22 15:35 36.7 C 66 16 125/71 95 Room Air
[2022-12-23] MEDS: ROSUVASTATIN CALCIUM 20 MG TAB PO SCH (21:32)
[2022-12-24] MEDS: VANCOMYCIN HCL 125 MG/2.5ML SOLN PO SCH ×2 (01:04→06:13)
[2022-12-24] MEDS: CHERRY SYRUP 5 ML UDP PO SCH ×2 (01:04→06:13)
[2022-12-24] MEDS ORDERED: KETOROLAC TROMETHAMINE 15 MG/ML VIAL IV ONE ×3 (01:06→22:41)
[2022-12-24] MEDS: HYDROmorphone INJ 0.5 MG/0.5 ML SYR IV PRN ×2 (03:09→07:49)
[2022-12-24] MEDS: CARBIDOPA/LEVODOPA 25/100MG TAB PO SCH ×3 (07:54→20:26)
[2022-12-24] MEDS: ESCITALOPRAM OXALATE 20 MG TAB PO SCH (07:54)
[2022-12-24] MEDS: PRIMIDONE 50 MG TAB PO SCH ×2 (07:54→20:26)
[2022-12-24] MEDS: MULTIVITAMIN TAB PO SCH (07:55)
[2022-12-24 08:00] LABS: Hematocrit (blood only) 35.8 % (37.0-47.0); Hemoglobin 12.3 g/dl (12.0-16.0); Mean Corpuscular Hemoglobin 28.9 pg (25.0-34.0); Mean Corpuscular Hgb Conc 34.4 g/dL (32.0-36.0); Platelet Count 174 K/uL (130-400); RDW Coefficient of Variation 13.2 % (11.5-14.5); Red Blood Count 4.26 M/uL (4.20-5.40); White Blood Count 5.97 K/ul (4.8-10.8)
[2022-12-24] MEDS: INSULIN ASPART PER UNIT CHARGE SC SCH ×4 (08:11→21:47)
[2022-12-24] MEDS: LANTUS PER UNIT CHARGE SQ SCH ×2 (08:11→21:47)
[2022-12-24 08:24] LABS: BUN Creatinine Ratio 16.2 (10-20); Creatinine Clr Calc Pharmacy 65.3 ml/min; Est GFR (African American) 96.4 ml/min; Est GFR (Non-African American) 83.2 ml/min; Magnesium 1.7 mg/dl (1.7-2.4); Potassium 3.4 mmol/L (3.5-5.1)
--- NOTE | 2022-12-24 09:16 | Hospitalist Progress Note ---
Date of Service December 24, 2022 Assessment & Plan (1) Acute UTI (urinary tract infection): Plan: Acute UTI 77yo presenting with nausea/vomiting and abdominal pain after recent diagnosis for Klebsiella UTI resistant to Bactrim/intermediate resistance to Unasyn Switched from Bactrim to Augmentin due to sensitivities, but developed abdominal pain/RLE discomfort requiring admission CTAP earlier this week w/ cystitis/ovarian cyst. Noting blood on initial UA (per daughter from recent UTI, however ? underlying stones). Repeat UA w/o any RBC/blood noted Repeat urine cx NEGATIVE. Can dc abx after today's dose as will have received 5 days IV abx Of note, no blood cultures obtained on admission, if any repeat infections would recommend obtaining prior to initiation of antibiotics WBC wnl, afebrile. Monitor Right hip pain Lumbar spine/hip/pelvis xray negative for acute fracture Ongoing pain prompted CT RIGHT hip to be obtained --> NEGATIVE for fracture US pelvic ordered for R abdominal pain, not able to be visualized. COMMERCIAL LEASE ADMINISTRATOR consulted and rec repeating US in outpatient setting Increased mentation issues suspected from opiate use Pain control had been w/ Tylenol/lidocaine and prn Dilaudid 0.5mg Discussed w/ daughter at bedside 12/24 and patient had tramadol in the past. Dc'd further dilaudid and will utilize tramadol 50mg prn for pain and scheduled tylenol 1gm Q8H for now. Continue topical lidocaine patches/voltaren gel otherwise ?if possible bursitis contributing. consider ortho consultation PT/OT consulted while inpatient Abdominal pain - suspected 2nd to UTI vs possible bursitis? - cdiff testing negative given recent abx use. Negative toxin but positive gene. Dc prior PO vancomycin ordered - prior CTAP w/ mild hiatal hernia, esophagitis. Did report some discomfort after eating --> added protonix daily, consider increasing to BID consider checking KUB in AM to see if able to visualize any stones. Could also consider repeating CTAP for any ongoing issues (2) Ataxia: Plan: Secondary parkinsonism, cognitive decline Follows with neurology as outpatient. Had bilateral upper extremity essential tremor severe, went DBS placement 2013, and subsequently with dysarthria/ataxia. Follows with [facility]. Continued on primidone and carbidopalevodopa, but is not suspected to have classic Parkinson's disease. Has been noted to have memory loss and suspected early dementia on prior follow- ups. Low suspicion for Alzheimer's Continue carbidopalevodopa Patient is with cognitive decline but no hallucinations and does not have a diagnosis of Lewy body disease Per patient's daughter normally Jackie has intact and relatively normal mentation and is significantly different from her usual baseline We will treat UTI as noted. Suspect acute deviation from baseline with incompletely treated infection with some baseline chronic memory decline, worsened w/ opiates as above and avoiding further dilaudid PT/OT consults ordered CT of RIGHT hip obtained due to pain --> no acute fracture or dislocation. If concerns for internal derangement, MRI recommended *Of note, patient w/ 4.2 cm cystic focus within the right hemipelvis. This likely arises from the right ovary. This may reflect a cyst however is abnormal in a postmenopausal patient and follow-up nonemergent pelvic ultrasound is recommended to assess for complexity. ?If this is the location for her pain reported to her right groin/hip Pelvic US for futher eval ordered - see above (3) DM type 2 (diabetes mellitus, type 2): Plan: A1c 8.5 from 9.3 previously On lantus 28u daily and 20u short acting at baseline recently, metformin 500mg BID Continue lantus 14u BID, sliding scale insulin BSGs acceptable (4) S/P deep brain stimulator placement: (5) Orthostatic hypotension: Plan: Orthostatic hypotension Possible side effect of carbidopa levodopa, but patient has had significant therapeutic benefit from this and is not recommended to be held Noted, normotensive on assessment PT/OT consults to be undertaken (6) Acute dehydration: Plan: s/p IVF good PO intake reported, no further IVF for now (7) Hypokalemia: Plan: 3.3, PO ordered and remaining 3.4 -- additional 20meq for this morning. Mag 1.7 Monitor on repeat (8) Ovarian cyst, right: (9) Metabolic encephalopathy: Plan: 2nd to UTI/delirium on dementia at baseline along with possible opiate use w/ Dilaudid 0.5mg IV (used 4 doses yesterday) D/c further diluadid, scheduling tylenol and will attempt pain control w/ tramadol as above as as tolerated in the past did not sleep well last evening, consider melatonin HS attempting better pain control schedule as above maintain good sleep hygiene frequent orientation Plan DVT prophylaxis: Lovenox --> ordered but will check Venous Doppler RLE for completeness (however pain more proximal) CODE STATUS: DNR/DNI. Patient formally full code. Did discuss with Nadia and her family at [place], Jackie reports that in the event of a cardiac or pulmonary arrest she would not want brought back and would want providers to "let me go " Continued inpatient stay, PT [facility]. From [facility], referrals sent to [facility] following Updated daughter in room this morning Admission and Anticipated Discharge Date Admission Date: December 21, 2022 Subjective eval this afternoon, daughter at bedside. discussion about dilaudid use/abuse and anger by patient overnight and throwing tissue box at staff she continues with anterior thigh/hip discomfort. prior blood in urine concerning for stone (none mentioned on recent CTAP) but daughter reports was from recent UTI. Discussed having some abdominal discomfort after eating, adding acid agent. Discussed transitioning to scheduled tylenol Q8H and utilizing tramadol for longer lasting relief. Discussed may not act as quickly as IV but longer lasting results. Would prefer to limit opiates as much as possible. Reports +BM this morning. Dc vancomycin. Questions/concerns addressed at this time. Physical Exam Physical Exam: General: WD elderly female sitting up in bed, daughter at bedside, reporting discomfort to her anterior right thigh HEENT: head atraumatic, normocephalic, mmm, trachea midline Resp; CTA, no w/c/r, on RA CV: RRR, no significant m/r/g, no pitting edema/calf tenderness GI: +BS, slight distension, no overt tenderness/guarding/rigidity MSK/Neuro: no pain to palpation of RIGHT hip, but reporting tenderness along IT band/along groin no appreciable hernia on exam, no bruising/ecchymosis Psych: alert to person, knows in hospital, no oriented to time/year Results & Data Results & Data Vital Signs (Past 12 Hours) Vital Signs Temp Pulse Resp BP Pulse Ox O2 Del Method 12/24/22 07:18 36.7 C 68 16 174/75 H 95 Room Air 12/23/22 21:25 36.8 C 75 18 163/83 H 96 Room Air Laboratory Results 12/24/22 12/24/22 12/24/22 Range/Units 11:27 07:43 07:32 WBC 5.97 (4.8-10.8) K/ul RBC 4.26 (4.20-5.40) M/uL Hgb 12.3 (12.0-16.0) g/dl Hct 35.8 L (37.0-47.0) % MCV 84.0 (80.0-100.0) fL MCH 28.9 (25.0-34.0) pg MCHC 34.4 (32.0-36.0) g/dL RDW Std Deviation 40.0 (36.4-46.3) fL RDW Coeff of Sunitha 13.2 (11.5-14.5) % Plt Count 174 (130-400) K/uL MPV 10.0 (9.4-12.4) fL Sodium 141 (136-145) mmol/L Potassium 3.4 L (3.5-5.1) mmol/L Chloride 107 (98-107) mmol/L Carbon Dioxide 26 (21-32) mmol/L Anion Gap 8 (3-11) BUN 11 (6-23) mg/dl Creatinine 0.68 (0.6-1.2) mg/dl Est Cr Clr Drug Dosing 65.3 ml/min Est GFR ( Amer) 96.4 ml/min Est GFR (Non-Af Amer) 83.2 ml/min BUN/Creatinine Ratio 16.2 (10-20) Glucose 128 H (70-99(Fasting)) mg/dl POC Glucose 167 H 143 H (70-99) mg/dl Estimat Average Glucose 197 mg/dl Hemoglobin A1c 8.5 H (4.5-5.6) % Calcium 9.0 (8.6-10.3) mg/dl Magnesium 1.7 (1.7-2.4) mg/dl 12/23/22 12/23/22 Range/Units 20:55 16:36 WBC (4.8-10.8) K/ul RBC (4.20-5.40) M/uL Hgb (12.0-16.0) g/dl Hct (37.0-47.0) % MCV (80.0-100.0) fL MCH (25.0-34.0) pg MCHC (32.0-36.0) g/dL RDW Std Deviation (36.4-46.3) fL RDW Coeff of Sunitha (11.5-14.5) % Plt Count (130-400) K/uL MPV (9.4-12.4) fL Sodium (136-145) mmol/L Potassium (3.5-5.1) mmol/L Chloride (98-107) mmol/L Carbon Dioxide (21-32) mmol/L Anion Gap (3-11) BUN (6-23) mg/dl Creatinine (0.6-1.2) mg/dl Est Cr Clr Drug Dosing ml/min Est GFR ( Amer) ml/min Est GFR (Non-Af Amer) ml/min BUN/Creatinine Ratio (10-20) Glucose (70-99(Fasting)) mg/dl POC Glucose 124 H 157 H (70-99) mg/dl Estimat Average Glucose mg/dl Hemoglobin A1c (4.5-5.6) % Calcium (8.6-10.3) mg/dl Magnesium (1.7-2.4) mg/dl PG Care Time/CCT Total # of Minutes Spent Total Time Spent with Patient: Total time spent is greater than 50% in coordination of care (as documented) at patient's floor/unit and/or counseling patient: Coding Level of Care Code 53728 SUB INP/OBS CARE 3/50MIN Diagnoses Acute UTI (urinary tract infection) N39.0 Ataxia R27.0 DM type 2 (diabetes mellitus, type 2) E11.9 S/P deep brain stimulator placement Z96.89 Orthostatic hypotension I95.1 Acute dehydration E86.0 Hypokalemia E87.6 Ovarian cyst, right N83.201 Metabolic encephalopathy G93.41
[2022-12-24] MEDS ORDERED: POTASSIUM CHLORIDE CRTAB 20 MEQ TABCR PO STA (09:19)
[2022-12-24 09:45] LABS: Estimated Average Glucose 197 mg/dl; Hemoglobin A1C 8.5 % (4.5-5.6)
[2022-12-24] MEDS: FAMOTIDINE 20 MG in SYRINGE 3 ML IV SCH (10:19)
[2022-12-24] MEDS: LIDOCAINE 5% 1 PATCH TD PRN (11:56)
[2022-12-24] MEDS: DICLOFENAC SOD 1% GEL 100 GM TUBE EXT PRN (11:56)
[2022-12-24] MEDS: ACETAMINOPHEN 325 MG TAB PO PRN (12:47)
[2022-12-24] MEDS: ONDANSETRON INJ 2 MG/ML 2 ML VIAL IV PRN (13:30)
[2022-12-24] MEDS: traMADol HCL 50 MG TABLET PO PRN ×3 (14:47→23:50)
[2022-12-24] MEDS: PANTOprazole 40 MG TAB PO SCH (16:34)
[2022-12-24] MEDS: cefTRIAXone SODIUM 2,000 MG in DEXTROSE 5 % MINI-B 50 ML IV SCH (16:52)
--- NOTE | 2022-12-24 18:12 | Ultrasound Report ---
RIGHT LOWER EXTREMITY VENOUS DOPPLER CLINICAL HISTORY: Right leg pain. r/o dvt, not on chemoprophylaxis COMPARISON STUDY: No previous studies for comparison. TECHNIQUE: Sonography of the deep venous system of the right lower extremity was performed. Compress ion and augmentation were evaluated. FINDINGS: The right common femoral, superficial femoral and popliteal veins were compressible. Augme ntation was normal. Flow was shown within the deep calf vessels. IMPRESSION: No evidence of deep venous thrombus within the right lower extremity. ACT 112: Negative or not required by law. Electronically signed by: Cornelius Collins M.D. 12/24/2022 6:10 PM
[2022-12-24] MEDS: ENOXAPARIN INJ 40 MG/0.4 ML SYR SQ SCH (18:25)
[2022-12-24] MEDS: ACETAMINOPHEN 500 MG TAB PO SCH (20:25)
[2022-12-24] MEDS: ROSUVASTATIN CALCIUM 20 MG TAB PO SCH (20:26)
[2022-12-25] MEDS: traMADol HCL 50 MG TABLET PO PRN ×2 (04:14→08:48)
[2022-12-25] MEDS: ACETAMINOPHEN 500 MG TAB PO SCH ×3 (04:14→21:01)
[2022-12-25 08:36] LABS: BUN Creatinine Ratio 15.9 (10-20); Creatinine Clr Calc Pharmacy 70.5 ml/min; Est GFR (African American) 98.9 ml/min; Est GFR (Non-African American) 85.3 ml/min; Magnesium 1.8 mg/dl (1.7-2.4); Potassium 3.5 mmol/L (3.5-5.1)
[2022-12-25] MEDS: MULTIVITAMIN TAB PO SCH (08:47)
[2022-12-25] MEDS: ESCITALOPRAM OXALATE 20 MG TAB PO SCH (08:47)
[2022-12-25] MEDS: LIDOCAINE 5% 1 PATCH TD PRN (08:47)
[2022-12-25] MEDS: PANTOprazole 40 MG TAB PO SCH (08:48)
[2022-12-25] MEDS: DICLOFENAC SOD 1% GEL 100 GM TUBE EXT PRN (08:48)
[2022-12-25] MEDS: CARBIDOPA/LEVODOPA 25/100MG TAB PO SCH ×3 (08:49→21:01)
[2022-12-25] MEDS: PRIMIDONE 50 MG TAB PO SCH ×2 (08:49→21:01)
[2022-12-25] MEDS: LANTUS PER UNIT CHARGE SQ SCH ×2 (08:56→20:58)
[2022-12-25] MEDS: FAMOTIDINE 20 MG in SYRINGE 3 ML IV SCH (08:57)
[2022-12-25] MEDS: INSULIN ASPART PER UNIT CHARGE SC SCH ×4 (08:57→20:58)
[2022-12-25] MEDS ORDERED: predniSONE 20 MG TAB PO ONE (09:01)
--- NOTE | 2022-12-25 09:04 | Hospitalist Progress Note ---
Date of Service December 25, 2022 Assessment & Plan (1) Right hip pain: Plan: Admitted w/ n/v/abdominal pain after tx for Klebsiella UTI. Completed course abx while inpatient as below Having ongoing RIGHT hip discomfort Lumbar spine/hip/pelvis xray negative for acute fracture Ongoing pain prompted CT RIGHT hip to be obtained --> NEGATIVE for fracture US pelvic ordered for R abdominal pain, not able to be visualized. APPLICATION SUPPORT ENGINEER consulted and rec repeating US in outpatient setting Pain control: tramadol utilized over morphine to prevent worsening confusion w/ improvement. Continue scheduled Tylenol Q8h and topicals w/ voltaren and lidocaine patches Given prednisone 40mg PO x 1 for suspected bursitis contributing given improvement w/ Toradol overnight. Will continue once daily unless otherwise recs below Discussed w/ daughter at bedside for inquiring about MRI of the hip/concerns sciatica Discussed will discuss w/ supervising provider and consider ortho consultation prior to obtaining any imaging/consideration for injection. Dr Woodward consulted, appreciate recs/assistance PT/OT consulted while inpatient, CM to follow (2) Acute UTI (urinary tract infection): Plan: Presenting with nausea/vomiting and abdominal pain after recent diagnosis for Klebsiella UTI resistant to Bactrim/intermediate resistance to Unasyn -Switched from Bactrim to Augmentin due to sensitivities, but developed abdominal pain/RLE discomfort requiring admission CTAP earlier this week w/ cystitis/ovarian cyst. Noting blood on initial UA (per daughter from recent UTI, however ? underlying stones). Repeat UA w/o any RBC/blood noted Repeat urine cx NEGATIVE. Completed 5 days IV Rocephin while inpatient WBC wnl on repeat, remains afebrile * Of note, no blood cultures obtained on admission, if any repeat infections would recommend obtaining prior to initiation of antibiotics Abdominal pain - suspected 2nd to UTI vs possible bursitis? - cdiff testing negative given recent abx use. Negative toxin but positive gene. Dc prior PO vancomycin ordered - prior CTAP w/ mild hiatal hernia, esophagitis. Did report some discomfort after eating --> added protonix daily, consider increasing to BID consider checking KUB in AM to see if able to visualize any stones. Could also consider repeating CTAP for any ongoing issues (3) Abdominal pain: Plan: reported. stool testing for cdiff positive gene/negative toxin. was placed on PO vanco, dc'd as toxin negative. Has completed course abx as above Monitor for any worsened diarrhea/need to retest Of note, hiatal hernia/possible esophagitis on imaging On pepcid daily, added protonix once daily and monitor for need to increase -reports improvement in PO intake since starting and will continue. No pain w/ swallowing NO ABDOMINAL PAIN REPORTED TODAY (4) Ataxia: Plan: Secondary parkinsonism, cognitive decline Follows with neurology as outpatient. b/l UE essential tremor, s/p DBS 2013 w/ subsequent dysarhtria//ataxia [facility] Continues on home primidone, Sinemet Has been noted to have memory loss and suspected early dementia on prior follow- ups. Low suspicion for Alzheimer's. Cognitive decline but no hallucinations. Not classic dx LBD Per patient's daughter normally Jackie has intact and relatively normal mentation and is significantly different from her usual baseline Tx for UTI Changed pain meds and discontinued further dilaudid as above, appears improved therapy consults pending (5) DM type 2 (diabetes mellitus, type 2): Plan: A1c 8.5 from 9.3 previously On lantus 28u daily and 20u short acting at baseline recently, metformin 500mg BID Continue lantus 14u BID, sliding scale insulin BSGs acceptable Monitor (6) S/P deep brain stimulator placement: Plan: placement in 2013 as above (7) Orthostatic hypotension: Plan: Orthostatic hypotension Possible side effect of carbidopa levodopa, but patient has had significant therapeutic benefit from this and is not recommended to be held Noted, normotensive on assessment PT/OT consults as above (8) Acute dehydration: Plan: s/p IVF good PO intake reported, no further IVF for now (9) Hypokalemia: Plan: PO replacement ordered, normal on AM labs w/ improvement in PO intake reported Mag wnl Monitor (10) Ovarian cyst, right: Plan: *Of note, patient w/ 4.2 cm cystic focus within the right hemipelvis. This likely arises from the right ovary. This may reflect a cyst however is abnormal in a postmenopausal patient and follow-up nonemergent pelvic ultrasound is recommended to assess for complexity. ?If this is the location for her pain reported to her right groin/hip Pelvic US for futher eval ordered - none visualized. F/u outpt recd (11) Metabolic encephalopathy: Plan: 2nd to UTI/delirium on dementia at baseline along with possible opiate use w/ Dilaudid 0.5mg IV (used 4 doses yesterday) D/c further diluadid, scheduling Tylenol and will attempt pain control w/ tramadol as above as as tolerated in the past. Dose prednisone x 1 Will schedule 3mg melatonin HS to help w/ sleep schedule Attempting better pain control as above, attempting to work on sleep schedule Frequent orientation Appears alert to person/place, improved from day prior. CODE STATUS: DNR/DNI. Patient formally full code. Did discuss with Nadia and her family at bedside, Jackie reports that in the event of a cardiac or pulmonary arrest she would not want brought back and would want providers to "let me go " Plan DVT prophylaxis: Lovenox SQ ordered was not on lovenox on admission, did check venous doppler to r/o DVT (NEGATIVE) Continued inpatient stay, PT [facility] and patient from [facility]. Refs pending to [facility] following Appreciate recs/assistance from orthopedics regarding ongoing hip pain Admission and Anticipated Discharge Date Admission Date: December 21, 2022 Subjective Evaluated this afternoon, finished about 50% of her lunch, but per daughter ate about 100% of her breakfast. Seems to be more comfortable this afternoon since prednisone administration. Pain reported to her right hip area/more lateral and suspicious for trochanteric bursitis where it was more anterior yesterday. Daughter reporting her sister in law persistent on looking into MRI of her hip for possible sciatica. Discussed could monitor response/give the prednisone a little more time vs obtaining MRI vs ortho consult prior to imaging but will discuss with my supervising provider prior to ordering. No issues w/ pain w/ eating reported by daughter since protonix and will continue for possible esophagitis on prior CT imaging. Questions/concerns addressed at this time. Physical Exam Physical Exam: General: WD elderly female sitting up in chair eating lunch, daughter at bedside, appears more comfortable but still reporting pain to her lateral right hip Head atraumatic normocephalic, mmm, trachea midline resp even/unlabored, clear to auscultation, no w/c/r, on room air CV: RRR, no significant m/r/g, no pitting edema/calf tenderness GI: +BS, soft/NT no santana MSK/Neuro: tenderness to palpation lateral right hip/area of greater trochanter but tenderness along IT band as well. No bruising/ecchymosis/warmth on exam. Has been bearing weight at times. strength equal with plantar/dorsiflexion Psych: alert/oriented, cooperative with exam daughter at bedside, reports seems improved Results & Data Results & Data Vital Signs (Past 12 Hours) Vital Signs Temp Pulse Resp BP Pulse Ox O2 Del Method 12/25/22 07:48 36.5 C 63 16 152/77 H 94 Room Air 12/25/22 07:40 Room Air Laboratory Results 12/25/22 12/25/22 12/25/22 Range/Units 11:44 07:46 07:24 Sodium 141 (136-145) mmol/L Potassium 3.5 (3.5-5.1) mmol/L Chloride 107 (98-107) mmol/L Carbon Dioxide 27 (21-32) mmol/L Anion Gap 7 (3-11) BUN 10 (6-23) mg/dl Creatinine 0.63 (0.6-1.2) mg/dl Est Cr Clr Drug Dosing 70.5 ml/min Est GFR ( Amer) 98.9 ml/min Est GFR (Non-Af Amer) 85.3 ml/min BUN/Creatinine Ratio 15.9 (10-20) Glucose 113 H (70-99(Fasting)) mg/dl POC Glucose 203 H 130 H (70-99) mg/dl Calcium 9.0 (8.6-10.3) mg/dl Magnesium 1.8 (1.7-2.4) mg/dl 12/24/22 12/24/22 12/24/22 Range/Units 21:25 20:34 16:35 Sodium (136-145) mmol/L Potassium (3.5-5.1) mmol/L Chloride (98-107) mmol/L Carbon Dioxide (21-32) mmol/L Anion Gap (3-11) BUN (6-23) mg/dl Creatinine (0.6-1.2) mg/dl Est Cr Clr Drug Dosing ml/min Est GFR ( Amer) ml/min Est GFR (Non-Af Amer) ml/min BUN/Creatinine Ratio (10-20) Glucose (70-99(Fasting)) mg/dl POC Glucose 195 H 227 H 133 H (70-99) mg/dl Calcium (8.6-10.3) mg/dl Magnesium (1.7-2.4) mg/dl Diagnostic Findings Venous Doppler Study 12/24/22 17:02 RIGHT LOWER EXTREMITY VENOUS DOPPLER CLINICAL HISTORY: Right leg pain. r/o dvt, not on chemoprophylaxis COMPARISON STUDY: No previous studies for comparison. TECHNIQUE: Sonography of the deep venous system of the right lower extremity was performed. Compression and augmentation were evaluated. FINDINGS: The right common femoral, superficial femoral and popliteal veins were compressible. Augmentation was normal. Flow was shown within the deep calf vessels. IMPRESSION: No evidence of deep venous thrombus within the right lower extremity. ACT 112: Negative or not required by law. Electronically signed by: Cornelius Collins M.D. 12/24/2022 6:10 PM PG Care Time/CCT Total # of Minutes Spent Total Time Spent with Patient: Total time spent is greater than 50% in coordination of care (as documented) at patient's floor/unit and/or counseling patient: Coding Level of Care Code 28821 SUB INP/OBS CARE 3/50MIN Diagnoses Right hip pain M25.551 Acute UTI (urinary tract infection) N39.0 Abdominal pain R10.9 Ataxia R27.0 DM type 2 (diabetes mellitus, type 2) E11.9 S/P deep brain stimulator placement Z96.89 Orthostatic hypotension I95.1 Acute dehydration E86.0 Hypokalemia E87.6 Ovarian cyst, right N83.201 Metabolic encephalopathy G93.41
--- NOTE | 2022-12-25 15:21 | Orthopedic Consultation ---
Date of Consultation December 25, 2022 Assessment & Plan (1) Trochanteric bursitis, right hip: Trochanteric bursitis right hip which has been resistant to conservative management. Patient also with iliotibial band syndrome right. Weightbearing as tolerated with assistance. Continue use of Lidoderm patch right hip. Alternating K-pad and ice pack right hip Will reassess patient tomorrow. May require further therapeutic measures. (2) Iliotibial band syndrome, right leg: (3) Right hip pain: History of Present Illness Reason for Consultation: Patient seen regarding persistent right lateral hip pain. Attending Physician: Rubio Houston History of Present Illness Apparently this pleasantly confused 77-year-old female patient had a fall prior to admission but the patient had complaints of right lateral hip pain prior to fall according to the patient. Patient is a poor historian and she has features of dementia. Allergies Allergy/AdvReac Type Severity Reaction Status Date / Time levetiracetam Allergy Intermediate Rash Verified 12/20/22 17:03 adhesive tape Allergy Mild Rash Verified 12/20/22 17:03 naproxen Allergy Mild RASH Verified 12/20/22 17:03 morphine Allergy Unknown Unknown Verified 12/20/22 17:03 Home Medications Medication Instructions Recorded Confirmed Type cholecalciferol (vitamin D3) 50 2,000 unit PO QAM 09/08/18 12/20/22 History mcg (2,000 unit) tablet (Vitamin D3) cyanocobalamin (vitamin B-12) 1,000 mcg PO QAM 09/08/18 12/20/22 History 1,000 mcg tablet (Vitamin B-12) acetaminophen 325 mg tablet 650 mg PO Q4H PRN Fever Or Pain 05/13/21 12/20/22 History lidocaine 4 % topical patch 1 patch topical DAILY PRN Pain 06/03/21 12/20/22 History olopatadine 0.7 % eye drops 1 drp OPB QAM 03/04/22 12/20/22 History (Pataday Once Daily Relief) ondansetron HCl 4 mg tablet 4 mg PO Q8H PRN nausea and 05/19/22 12/20/22 Rx vomiting #20 tabs loperamide 2 mg capsule 2 mg PO Q4H PRN Loose Stool 07/07/22 12/20/22 History (Anti-Diarrheal (loperamide)) metformin 500 mg tablet 500 mg PO BIDM 30 days #60 tabs 07/23/22 12/20/22 Rx pen needle, diabetic 31 gauge x #100 ea 08/17/22 12/16/22 Rx 3/16" (Sure-Fine Pen [place]) multivitamin (Daily-Devin tablet) 1 tab PO DAILY 09/03/22 12/20/22 History olopatadine 0.7 % eye drops 1 drp OPB QPM PRN itchy eyes 09/03/22 12/20/22 History (Pataday Once Daily Relief) carbidopa 25 mg-levodopa 100 mg 2 tab PO TID 30 days #180 tabs 09/09/22 12/20/22 Rx tablet diclofenac sodium 1 % topical gel 2 g topical QID PRN coccyx pain 09/11/22 12/20/22 Rx #100 grams fluticasone propionate 50 1 spray intranasal BID #16 grams 10/20/22 12/20/22 Rx mcg/actuation nasal spray,suspension insulin glargine 100 unit/mL (3 28 unit (0.28 mL) subcut QPM #15 mL 11/11/22 12/20/22 Rx mL) subcutaneous pen (Lantus Solostar U-100 Insulin) amoxicillin 500 mg-potassium 1 tab PO BID #20 tabs 12/17/22 12/20/22 Rx clavulanate 125 mg tablet (Augmentin) escitalopram oxalate 20 mg tablet 20 mg PO DAILY #30 tabs 12/17/22 12/20/22 Rx primidone 50 mg tablet 100 mg (2 x 50 mg) PO BID #120 tabs 12/17/22 12/20/22 Rx rosuvastatin 20 mg tablet 20 mg PO HS #30 tabs 12/17/22 12/20/22 Rx nitrofurantoin macrocrystal 50 mg 50 mg PO QPM 12/20/22 12/20/22 History capsule (Macrodantin) Patient History Medical History Acute UTI Asthma Chest pain Coccygeal fracture Constipation Elevated AST (SGOT) Fall Fall GERD (gastroesophageal reflux disease) resolved, off PPI Nausea Recurrent urinary tract infection Sensorineural hearing loss (SNHL) of both ears Tubular adenoma of colon Surgical History S/P cholecystectomy S/P deep brain stimulator placement (08/20/16) S/P sinus surgery Status post tubal ligation Family History Father Cancer Mother Depression Hypertension Stroke Grandmother Breast cancer Mother Myocardial infarction Denies family history of Ovarian cancer Prostate cancer Colorectal cancer Social History Smoking Status: Never smoker Second Hand Exposure: No; Do You Dip or Chew Tobacco: No; Hx Alcohol Use: No Hx Substance Use: No Preferred Language: Azeri Communication Ability: Effective Passenger Flagman Required: No Beliefs That Will Affect Care: None marital status: / Current Living Situation: Detention current occupational status: retired Feels Safe at Home: Yes caffeine: Yes Dental Care, Regularly: No Physical Activity Frequency: Does not Exercise Seatbelt Use: always Sunscreen Use: No Assistive Devices: Denture - Upper, Denture - Lower and Walker Physical Exam Constitutional: WD/WN, vitals as above Eyes: PERRL, conjunctivae normal, anicteric sclerae ENMT: external ear and nose normal, oropharynx normal Neck: trachea midline, no thyromegaly Respiratory: normal respiratory effort, lungs clear to auscultation Gastrointestinal (Abdomen): Soft, nontender, nondistended. Normal bowel sounds. Musculoskeletal: Focused examination right hip demonstrates skin which is warm, dry and intact. Lidoderm patch is present lateral right hip slightly distal to the trochanteric bursal region. There is point tenderness over the trochanteric bursa extending distally along the iliotibial band. There is no focal erythema or increased warmth. There is no irritability with passive range of motion of the right hip. Heel strike test is negative. Compartments are soft. Homans test is negative. Normal range of motion of the knees and ankles bilaterally. Pedal pulses are palpable 2/4 bilateral. Capillary refill is brisk bilateral feet. Sensation is intact bilateral lower extremities. Skin: no rashes, warm and dry Neurologic: Features consistent with parkinsonism. Psychiatric: Dementia. Parkinsonism. Lymphatic: no cervical or axillary lymphadenopathy Results & Data Vital Signs (Past 12 Hours) Vital Signs Temp Pulse Resp BP BP Pulse Ox O2 Del Method 11/03/23 14:31 36.6 C 70 16 139/66 96 Room Air 12/25/22 07:48 36.5 C 63 16 152/77 H 94 Room Air 12/25/22 07:40 Room Air Laboratory Results Laboratories reviewed. Diagnostic Findings Radiographs of the right hip demonstrate no obvious fracture. Osteopenia is evident. CT scan of the right hip demonstrates no obvious fractures. Small calcification adjacent to the inferior aspect of the greater trochanter. No fluid collections. Mild sclerosis of the right hip joint without significant joint space narrowing.
[2022-12-25] MEDS ORDERED: ETHYL CHLORIDE AER PER SPRAY 100 ML CAN EXT ONE (15:45)
[2022-12-25] MEDS ORDERED: methylPREDNISolone acetate 80 MG/ML VIAL IM ONE (15:45)
[2022-12-25] MEDS ORDERED: BUPIVACAINE 0.5 % 5 MG/1 ML MPF 30ML VIAL INFIL ONE (15:45)
[2022-12-25] MEDS ORDERED: ETHYL CHLORIDE AER SPR 100 ML CAN EXT ONE (16:15)
[2022-12-25] MEDS: ENOXAPARIN INJ 40 MG/0.4 ML SYR SQ SCH (17:38)
[2022-12-25] MEDS: MELATONIN 3 MG TAB PO SCH (21:01)
[2022-12-25] MEDS: ROSUVASTATIN CALCIUM 20 MG TAB PO SCH (21:02)
[2022-12-26] MEDS: ACETAMINOPHEN 500 MG TAB PO SCH ×3 (05:07→21:14)
[2022-12-26] MEDS: CARBIDOPA/LEVODOPA 25/100MG TAB PO SCH ×3 (08:52→21:15)
[2022-12-26] MEDS: PANTOprazole 40 MG TAB PO SCH (08:53)
[2022-12-26] MEDS: MULTIVITAMIN TAB PO SCH (08:53)
[2022-12-26] MEDS: ESCITALOPRAM OXALATE 20 MG TAB PO SCH (08:53)
[2022-12-26] MEDS: PRIMIDONE 50 MG TAB PO SCH ×2 (08:54→21:15)
--- NOTE | 2022-12-26 08:58 | Hospitalist Progress Note ---
Date of Service December 26, 2022 Assessment & Plan (1) Right hip pain: Plan: Admitted w/ n/v/abdominal pain after tx for Klebsiella UTI. Completed course abx while inpatient as below Having ongoing RIGHT hip discomfort Lumbar spine/hip/pelvis xray negative for acute fracture Ongoing pain prompted CT RIGHT hip to be obtained --> NEGATIVE for fracture US pelvic ordered for R abdominal pain, not able to be visualized. RENT CONTROL OFFICE MANAGER consulted and rec repeating US in outpatient setting Pain control: tramadol utilized over morphine to prevent worsening confusion w/ improvement. Continue scheduled Tylenol Q8h and topicals w/ voltaren and lidocaine patches Given prednisone 40mg PO x 1 for suspected bursitis contributing given improvement w/ Toradol overnight. Will continue once daily unless otherwise recs below Discussed w/ daughter at bedside for inquiring about MRI of the hip/concerns sciatica Discussed will discuss w/ supervising provider and consider ortho consultation prior to obtaining any imaging/consideration for injection. Dr Woodward consulted, appreciate recs/assistance -Eval evening 12/25, per nursing staff plans for possible injection AM 12/26 for improvement in pain control PT/OT consulted while inpatient, CM to follow-- [facility] offering bed this upcoming week 12/26 --> ongoing worsened abdominal pain this morning prompting repeat CTAP as not obtained on admission, ?underlying kidney stone w/ hematuria on initial UA rather from infection? She completed 5 days IV ceftriaxone while inpatient and prior was on Augmenting prior to admission (bactrim prior to that) Ordered labs for this morning for review given ongoing issues If negative, could be from pain from her bursitis? ileopsoas bursitis Hopefully no acute findings and ortho able to provide injection for relief (2) Acute UTI (urinary tract infection): Plan: Presenting with nausea/vomiting and abdominal pain after recent diagnosis for Klebsiella UTI resistant to Bactrim/intermediate resistance to Unasyn -Switched from Bactrim to Augmentin due to sensitivities, but developed abdominal pain/RLE discomfort requiring admission CTAP earlier this week w/ cystitis/ovarian cyst. Noting blood on initial UA (per daughter from recent UTI, however ? underlying stones). Repeat UA w/o any RBC/blood noted Repeat urine cx NEGATIVE. Completed 5 days IV Rocephin while inpatient WBC wnl on repeat, remains afebrile * Of note, no blood cultures obtained on admission, if any repeat infections would recommend obtaining prior to initiation of antibiotics Repeating urine cx. If + consider obtaining blood cultures as not obtained on admission (3) Abdominal pain: Plan: reported. stool testing for cdiff positive gene/negative toxin. was placed on PO vanco, dc'd as toxin negative. Has completed course abx as above Monitor for any worsened diarrhea/need to retest Of note, hiatal hernia/possible esophagitis on imaging On pepcid daily, added protonix and can consider increasing to BID -reported improvement in PO intake since starting and will continue. No pain w/ swallowing Recurrent UTI, ?from bursitis/pain control? Repeating UA/cx if indicated Repeating CTAP as above (has been moving her bowels), repeat urine cx (4) Ataxia: Plan: Secondary parkinsonism, cognitive decline Follows with neurology as outpatient. 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 Low suspicion for Alzheimer's. Cognitive decline but no hallucinations. Not classic dx LBD Per patient's daughter normally Jackie has intact and relatively normal mentation and is significantly different from her usual baseline Tx for UTI Changed pain meds and discontinued further dilaudid as above (5) DM type 2 (diabetes mellitus, type 2): Plan: A1c 8.5 from 9.3 previously On lantus 28u daily and 20u short acting at baseline recently, metformin 500mg BID Continue lantus 14u BID, sliding scale insulin BSGs acceptable Monitor (6) S/P deep brain stimulator placement: Plan: placement in 2013 as above (7) Orthostatic hypotension: Plan: Orthostatic hypotension Possible side effect of carbidopa levodopa, but patient has had significant therapeutic benefit from this and is not recommended to be held Noted, normotensive on assessment PT/OT consults as above (8) Acute dehydration: Plan: s/p IVF improvement in PO intake since PPI therapy Monitor (9) Hypokalemia: Plan: PO replacement ordered, normal on AM labs w/ improvement in PO intake reported Mag wnl repeat labs pending for today (10) Ovarian cyst, right: Plan: *Of note, patient w/ 4.2 cm cystic focus within the right hemipelvis. This likely arises from the right ovary. This may reflect a cyst however is abnormal in a postmenopausal patient and follow-up nonemergent pelvic ultrasound is recommended to assess for complexity. ?If this is the location for her pain reported to her right groin/hip Pelvic US for futher eval ordered - none visualized. F/u outpt recd (11) Metabolic encephalopathy: Plan: 2nd to UTI/delirium on dementia at baseline along with possible opiate use w/ Dilaudid 0.5mg IV (used 4 doses yesterday) D/c further diluadid, scheduling Tylenol and will attempt pain control w/ tramadol as above as as tolerated in the past. Dose prednisone x 1 Will schedule 3mg melatonin HS to help w/ sleep schedule Attempting better pain control as above, attempting to work on sleep schedule Frequent orientation Appears alert to person/place, improved from day prior. CODE STATUS: DNR/DNI. Patient formally full code. Did discuss with Nadia and her family at bedside, Jackie reports that in the event of a cardiac or pulmonary arrest she would not want brought back and would want providers to "let me go " Plan DVT prophylaxis: Lovenox SQ ordered was not on lovenox on admission, did check venous doppler to r/o DVT (NEGATIVE) Continued inpatient stay, PT evals rec rehab and patient from [facility]. Refs sent to [facility] (can accept next week, daughter on board). CM following Admission and Anticipated Discharge Date Admission Date: December 21, 2022 Subjective eval this morning, apparently had episode trying to urinate this morning (did void in toilet) but reporting increased severe right lower abdominal pain and nausea. [place] like she was going to pass out from pushing to urinate so hard. Bladder scan w/o recorded residual, but per AIRCRAFT INSTRUMENT ENGINEER she did void in toilet. Denies any witnessed blood. RN providing medication. Discussed ortho w/ possible injection today but will repeat CTAP as recommended on admission for further eval/possible stone contributing to her symptoms vs other. Has continued to move her bowels. Physical Exam Physical Exam: General: elderly female sitting up in bed closing her eyes initially upon entry, awoken easily to name HEENT: head normocephalic, atraumatic, mmm, trachea midline Resp: even/unlabored, no w/c/r, on room air CV: RRR, no significant mrg, no pitting edema/calf tenderness GI: +BS, soft but slightly distended, tender to deep palpation RLQ, no guarding/rigidity/peritoneal signs, +suprapubic tenderness MSK/Neuro: tenderness to palpation lateral right hip/area of greater trochanter but tenderness along IT band as well. No bruising/ecchymosis/warmth on exam, compartments soft strength equal with plantar/dorsiflexion Psych: alert/oriented, cooperative with exam daughter at bedside, reports seems improved Results & Data Results & Data Vital Signs (Past 12 Hours) Vital Signs Temp Pulse Resp BP Pulse Ox O2 Del Method 12/26/22 07:11 36.3 C L 55 L 18 139/75 98 Room Air 12/25/22 21:08 36.5 C 67 16 123/79 96 Room Air Laboratory Results 12/26/22 12/25/22 12/25/22 Range/Units 08:10 20:24 16:52 POC Glucose 124 H 221 H 203 H (70-99) mg/dl 12/25/22 Range/Units 11:44 POC Glucose 203 H (70-99) mg/dl PG Care Time/CCT Total # of Minutes Spent Total Time Spent with Patient: Total time spent is greater than 50% in coordination of care (as documented) at patient's floor/unit and/or counseling patient: Coding Level of Care Code 59260 SUB INP/OBS CARE 3/50MIN Diagnoses Right hip pain M25.551 Acute UTI (urinary tract infection) N39.0 Abdominal pain R10.9 Ataxia R27.0 DM type 2 (diabetes mellitus, type 2) E11.9 S/P deep brain stimulator placement Z96.89 Orthostatic hypotension I95.1 Acute dehydration E86.0 Hypokalemia E87.6 Ovarian cyst, right N83.201 Metabolic encephalopathy G93.41
[2022-12-26] MEDS: INSULIN ASPART PER UNIT CHARGE SC SCH ×4 (09:01→22:22)
[2022-12-26] MEDS: FAMOTIDINE 20 MG TAB PO SCH (09:01)
[2022-12-26] MEDS: LANTUS PER UNIT CHARGE SQ SCH ×2 (09:01→22:21)
[2022-12-26] MEDS: traMADol HCL 50 MG TABLET PO PRN ×3 (10:20→17:53)
--- NOTE | 2022-12-26 11:08 | Communication Note ---
Date of Service: December 26, 2022 Discussed w/ supervising provider and rec to await labs CBC/CMP prior to imaging for eval. No overt CVA tenderness and suspected MSK in nature. Pending repeat labs may order further imaging after discussion w/ Dr Houston.
[2022-12-26 11:43] LABS: Basophils # (auto) 0.02 K/uL (0.00-0.20); Basophils % (auto) 0.4 %; Hematocrit (blood only) 37.3 % (37.0-47.0); Hemoglobin 12.3 g/dl (12.0-16.0); Immature Granulocytes # (auto) 0.01 K/uL (0.01-0.20); Immature Granulocytes % (auto) 0.2 %; Lymphocytes # (auto) 1.71 K/uL (1.20-3.40); Lymphocytes % (auto) 32.9 %; Mean Corpuscular Hemoglobin 28.5 pg (25.0-34.0); Mean Corpuscular Volume 86.3 fL (80.0-100.0); Mean Platelet Volume 10.1 fL (9.4-12.4); Monocytes # (auto) 0.45 K/uL (0.11-0.59); Monocytes % (auto) 8.7 %; Neutrophils % (auto) 57.8 %; Platelet Count 193 K/uL (130-400); RDW Coefficient of Variation 13.7 % (11.5-14.5); RDW Standard Deviation 42.3 fL (36.4-46.3); Red Blood Count 4.32 M/uL (4.20-5.40); White Blood Count 5.19 K/ul (4.8-10.8)
[2022-12-26] MEDS: LIDOCAINE 5% 1 PATCH TD PRN (11:59)
[2022-12-26 12:07] LABS: Albumin Level 3.9 gm/dl (3.4-5.0); BUN Creatinine Ratio 22.5 (10-20); Bilirubin Direct 0.1 mg/dl (0-0.2); Bilirubin,Total 0.4 mg/dl (0.2-1.0); Calcium 9.4 mg/dl (8.6-10.3); Creatinine Clr Calc Pharmacy 55.5 ml/min; Est GFR (African American) 81.3 ml/min; Est GFR (Non-African American) 70.1 ml/min; Magnesium 1.9 mg/dl (1.7-2.4); Potassium 3.5 mmol/L (3.5-5.1); Total Protein 6.4 gm/dl (6.0-8.3)
[2022-12-26] MEDS: DICLOFENAC SOD 1% GEL 100 GM TUBE EXT PRN (13:45)
[2022-12-26] MEDS ORDERED: predniSONE 20 MG TAB PO STA (15:00)
[2022-12-26 15:23] LABS: Appearance Urine Turbid (Clear); Bacteria Urine Automated Negative (Negative); Bilirubin Urine Negative (Negative); Blood Urine Trace (Negative); Color Urine Dark Yellow; Epithelial Cell Urine Auto >30 /lpf (0-5); Glucose Urine UA 1+ (Negative); Ketones Urine Trace (Negative); Leukocyte Esterase Urine 2+ (Negative); Nitrite Urine Negative (Negative); Protein Urine 2+ (Negative); Specific Gravity Urine 1.025 (1.000-1.030); Urobilinogen Urine Negative (Negative); WBC Urine Automated >30 /hpf (0-5); pH Urine 6.5 (4.5-7.5)
--- NOTE | 2022-12-26 16:25 | Orthopedic Progress Note ---
Date of Service December 26, 2022 Assessment & Plan (1) Trochanteric bursitis, right hip: Plan: Trochanteric bursitis right hip which has been resistant to conservative management. Patient with iliotibial band syndrome right. Weightbearing as tolerated with assistance. Continue use of Lidoderm patch right hip. Alternating K-pad and ice pack right hip After obtaining verbal consent from the patient. The right hip was then sterilely prepped with Betadine and alcohol. Ethyl chloride spray was used as a topical refrigerant and 1 cc 80 mg/cc Depo-Medrol and 5 cc 0.5% bupivacaine was injected using sterile technique into the right trochanteric bursa using manual palpation. The patient tolerated the procedure well. A sterile compressive Band-Aid was applied. Patient was given postinjection instructions. Encouraged application of ice to the right hip on and off for the next 48 hours. Thank you for the opportunity consult in the care of this patient. Stef Woodward DO [facility] orthopedic [place] [phone] (2) Iliotibial band syndrome, right leg: (3) Right hip pain: Admission and Anticipated Discharge Date Admission Date: December 21, 2022 Subjective Patient seen for continued orthopedic consultation today. Patient continues to have right hip pain in addition, patient complained of attempting to urinate this morning but reporting increased severe right lower abdominal pain and nausea. [place] like she was going to pass out from pushing to urinate so hard. Bladder scan w/o recorded residual. Denies any witnessed blood. Medical service aware. Physical Exam Constitutional: WD/WN, vitals as above Eyes: PERRL, conjunctivae normal, anicteric sclerae ENMT: external ear and nose normal, oropharynx normal Neck: trachea midline, no thyromegaly Respiratory: normal respiratory effort, lungs clear to auscultation Musculoskeletal: Right hip skin is warm, dry and intact. Positive tender to palpation of the trochanteric bursa. Positive tenderness extending along the iliotibial band. Pain with resisted abduction right hip. Mild discomfort which is vague with pa ssive range of motion right hip. No tenderness at the right groin or along the posterior capsule. Distal neurovascular status intact. Pulses palpable. Skin: no rashes, warm and dry Lymphatic: no cervical or axillary lymphadenopathy Results & Data Vital Signs (Past 12 Hours) Vital Signs Temp Pulse Resp BP Pulse Ox O2 Del Method 12/26/22 15:13 36.5 C 68 18 161/72 H 95 Room Air 12/26/22 10:04 36.4 C L 60 18 136/69 97 Room Air 12/26/22 07:11 36.3 C L 55 L 18 139/75 98 Room Air Laboratory Results Laboratories reviewed.
[2022-12-26] MEDS: ENOXAPARIN INJ 40 MG/0.4 ML SYR SQ SCH (18:01)
[2022-12-26] MEDS ORDERED: KETOROLAC TROMETHAMINE 15 MG/ML VIAL IV ONE (18:36)
[2022-12-26] MEDS ORDERED: SODIUM CHLORIDE 0.9% 500 ML IV SCH (18:45)
[2022-12-26] MEDS: MELATONIN 3 MG TAB PO SCH (21:15)
[2022-12-26] MEDS: ROSUVASTATIN CALCIUM 20 MG TAB PO SCH (21:16)
[2022-12-27] MEDS: ACETAMINOPHEN 500 MG TAB PO SCH ×3 (05:13→20:42)
[2022-12-27 07:17] LABS: Basophils # (auto) 0.02 K/uL (0.00-0.20); Basophils % (auto) 0.2 %; Hematocrit (blood only) 37.3 % (37.0-47.0); Hemoglobin 12.4 g/dl (12.0-16.0); Immature Granulocytes # (auto) 0.04 K/uL (0.01-0.20); Immature Granulocytes % (auto) 0.5 %; Lymphocytes # (auto) 1.35 K/uL (1.20-3.40); Lymphocytes % (auto) 15.2 %; Mean Corpuscular Hemoglobin 28.5 pg (25.0-34.0); Mean Corpuscular Hgb Conc 33.2 g/dL (32.0-36.0); Mean Corpuscular Volume 85.7 fL (80.0-100.0); Mean Platelet Volume 9.9 fL (9.4-12.4); Monocytes # (auto) 0.34 K/uL (0.11-0.59); Monocytes % (auto) 3.8 %; Neutrophils # (auto) 7.12 K/uL (1.40-6.50); Neutrophils % (auto) 80.3 %; Platelet Count 220 K/uL (130-400); RDW Coefficient of Variation 13.7 % (11.5-14.5); RDW Standard Deviation 42.1 fL (36.4-46.3); Red Blood Count 4.35 M/uL (4.20-5.40); White Blood Count 8.87 K/ul (4.8-10.8)
[2022-12-27] MEDS: ESCITALOPRAM OXALATE 20 MG TAB PO SCH (07:34)
[2022-12-27] MEDS: MULTIVITAMIN TAB PO SCH (07:34)
[2022-12-27] MEDS: PANTOprazole 40 MG TAB PO SCH (07:34)
[2022-12-27 07:41] LABS: Albumin Globulin Ratio 1.5 (0.9-2); Albumin Level 3.8 gm/dl (3.4-5.0); BUN Creatinine Ratio 26.3 (10-20); Bilirubin,Total 0.4 mg/dl (0.2-1.0); Creatinine Clr Calc Pharmacy 58.4 ml/min; Est GFR (African American) 86.5 ml/min; Est GFR (Non-African American) 74.6 ml/min; Globulin 2.5 gm/dl (2.5-4.0); Magnesium 1.8 mg/dl (1.7-2.4); Total Protein 6.3 gm/dl (6.0-8.3)
[2022-12-27] MEDS: PRIMIDONE 50 MG TAB PO SCH ×2 (07:45→20:42)
[2022-12-27] MEDS: KETOROLAC TROMETHAMINE 15 MG/ML VIAL IV PRN (07:46)
[2022-12-27] MEDS: CARBIDOPA/LEVODOPA 25/100MG TAB PO SCH ×3 (07:46→20:42)
--- NOTE | 2022-12-27 08:15 | Hospitalist Progress Note ---
Date of Service December 27, 2022 Assessment & Plan (1) Right hip pain: Plan: Admitted w/ n/v/abdominal pain after tx for Klebsiella UTI. Completed course abx while inpatient as below Having ongoing RIGHT hip discomfort Lumbar spine/hip/pelvis xray negative for acute fracture US pelvic ordered for R abdominal pain, not able to be visualized. SUPPLIER QUALITY ENGINEERING MANAGER consulted and rec repeating US in outpatient setting Ongoing pain prompted CT RIGHT hip to be obtained --> NEGATIVE for fracture Given trial prednisone x 1 w/ some improvement. Toradol overnight and consultation w/ Dr Woodward undertaken for possible trochanteric bursitis/IT band syndrome pain control w/ Tylenol and topicals. tramadol available for breakthrough s/p injection 12/[address] Woodward to right trochanteric bursa Ice to affected area, Toradol IV (4 doses ordered, 1 provided this morning) for break though Nadia is MUCH more comfortable on examination today Continue PT/OT, CM to follow -- [facility] to offer bed this upcoming week (2) Acute UTI (urinary tract infection): Plan: Presenting with nausea/vomiting and abdominal pain after recent diagnosis for Klebsiella UTI resistant to Bactrim/intermediate resistance to Unasyn Switched from Bactrim to Augmentin due to sensitivities, but developed abdominal pain/RLE discomfort requiring admission Completed 5 days IV Rocephin while inpatient, discontinued further. Repeat urine cx NEGATIVE on admission WBC wnl, afebrile, Pain w/ urination 12/26 and repeat urine cx pending (3) Abdominal pain: Plan: reported. stool testing for cdiff positive gene/negative toxin. was placed on PO vanco, dc'd as toxin negative. Has completed course abx as above Monitor for any worsened diarrhea/need to retest Of note, hiatal hernia/possible esophagitis on imaging On pepcid daily, added protonix and can consider increasing to BID reported improvement in PO intake since starting and will continue. No pain w/ swallowing Recurrent UTI, ?from bursitis/pain control? Repeating UA/cx if indicated NO ABDOMINAL PAIN REPORTED 12/27 SINCE INJECTION TO HER HIP YESTERDAY (4) Ataxia: Plan: Secondary parkinsonism, cognitive decline Follows with neurology as outpatient. 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 Low suspicion for Alzheimer's. Cognitive decline but no hallucinations. Not classic dx LBD Per patient's daughter normally Jackie has intact and relatively normal mentation and is significantly different from her usual baseline Tx for UTI Changed pain meds and discontinued further dilaudid as above Appearing much improved 12/27 (5) DM type 2 (diabetes mellitus, type 2): Plan: A1c 8.5 from 9.3 previously On lantus 28u daily and 20u short acting at baseline recently, metformin 500mg BID Continue lantus 14u BID, sliding scale insulin BSGs acceptable Monitor (6) S/P deep brain stimulator placement: Plan: placement in 2013 as above (7) Orthostatic hypotension: Plan: Orthostatic hypotension Possible side effect of carbidopa levodopa, but patient has had significant therapeutic benefit from this and is not recommended to be held Noted, normotensive on assessment PT/OT consults as above (8) Acute dehydration: Plan: s/p IVF improvement in PO intake since PPI therapy Monitor (9) Hypokalemia: Plan: PO replacement ordered, normal on AM labs w/ improvement in PO intake reported Mag wnl Repeat stable (10) Ovarian cyst, right: Plan: *Of note, patient w/ 4.2 cm cystic focus within the right hemipelvis. This likely arises from the right ovary. This may reflect a cyst however is abnormal in a postmenopausal patient and follow-up nonemergent pelvic ultrasound is recommended to assess for complexity. ?If this is the location for her pain reported to her right groin/hip Pelvic US for further eval ordered - none visualized. F/u outpt recd (11) Metabolic encephalopathy: Plan: 2nd to UTI/delirium on dementia at baseline along with possible opiate use w/ Dilaudid 0.5mg IV (used 4 doses yesterday) D/c further diluadid, scheduling Tylenol and will attempt pain control w/ tramadol as above as as tolerated in the past. Will schedule 3mg melatonin HS to help w/ sleep schedule Attempting better pain control as above, attempting to work on sleep schedule Frequent orientation Appears alert to person/place, improved from day prior. Pain much improved since injection CODE STATUS: DNR/DNI. Patient formally full code. Did discuss with Nadia and her family at bedside, Jackie reports that in the event of a cardiac or pulmonary arrest she would not want brought back and would want providers to "let me go " Plan DVT prophylaxis: Lovenox SQ ordered was not on lovenox on admission, venous doppler checked due to prior pain, negative for DVT Continued inpatient stay, therapy evals for rehab (from [facility]) --> [facility] to accept this week, CM following Admission and Anticipated Discharge Date Admission Date: December 21, 2022 Supervising Physician Co-Signing Physician Notes The patient was not seen by me. The chart was reviewed. Case discussed with ILYA Myers. Agree with assessment and plan Subjective Evaluated this morning, doing well. Resting in bed upon entry but awoken easily. Discussed pain to her hip, she reports it's actually not that bad today. Discussed continued ICE and as needed medications. No chest pain/shortness of breath, abdominal pain, nausea reported. Questions/concerns addressed at this time. Physical Exam Physical Exam: General: elderly female sitting up in bed resting, NAD, easily awoken, much improved HEENT; head normocephalic, atraumatic, mmm, trachea midline Resp; even/unlabored, no w/c/r, on room air CV: RRR, no significant m/r/g, no pitting edema/calf tenderness GI: +BS, soft/NT : no santana MSK/Neuro: significant improvement in tenderness to greater trochanter/anterior thigh as well as IT band, compartments soft, pulses palpable, NVI Psych: alert to person/place, cooperative with exam Results & Data Results & Data Vital Signs (Past 12 Hours) Vital Signs Temp Pulse Resp BP Pulse Ox O2 Del Method 12/27/22 07:03 36.5 C 61 18 137/79 98 Room Air 12/26/22 21:37 36.6 C 76 16 196/77 H 96 Room Air Laboratory Results 12/27/22 12/27/22 12/26/22 Range/Units 08:05 06:20 21:35 WBC 8.87 (4.8-10.8) K/ul RBC 4.35 (4.20-5.40) M/uL Hgb 12.4 (12.0-16.0) g/dl Hct 37.3 (37.0-47.0) % MCV 85.7 (80.0-100.0) fL MCH 28.5 (25.0-34.0) pg MCHC 33.2 (32.0-36.0) g/dL RDW Std Deviation 42.1 (36.4-46.3) fL RDW Coeff of Sunitha 13.7 (11.5-14.5) % Plt Count 220 (130-400) K/uL MPV 9.9 (9.4-12.4) fL Immature Gran % (Auto) 0.5 % Neut % (Auto) 80.3 % Lymph % (Auto) 15.2 % [place] % (Auto) 3.8 % Eos % (Auto) 0.0 % Baso % (Auto) 0.2 % Neut # (Auto) 7.12 H (1.40-6.50) K/uL Lymph # (Auto) 1.35 (1.20-3.40) K/uL [place] # (Auto) 0.34 (0.11-0.59) K/uL Eos # (Auto) 0.00 (0.00-0.50) K/uL Baso # (Auto) 0.02 (0.00-0.20) K/uL Immature Gran # (Auto) 0.04 (0.01-0.20) K/uL Sodium 140 (136-145) mmol/L Potassium 4.0 (3.5-5.1) mmol/L Chloride 107 (98-107) mmol/L Carbon Dioxide 27 (21-32) mmol/L Anion Gap 6 (3-11) BUN 20 (6-23) mg/dl Creatinine 0.76 (0.6-1.2) mg/dl Est Cr Clr Drug Dosing 58.4 ml/min Est GFR ( Amer) 86.5 ml/min Est GFR (Non-Af Amer) 74.6 ml/min BUN/Creatinine Ratio 26.3 H (10-20) Glucose 162 H (70-99(Fasting)) mg/dl POC Glucose 138 H 169 H (70-99) mg/dl Calcium 9.0 (8.6-10.3) mg/dl Magnesium 1.8 (1.7-2.4) mg/dl Total Bilirubin 0.4 (0.2-1.0) mg/dl AST 32 (13-39) U/L ALT 7 (7-52) U/L Alkaline Phosphatase 41 (34-104) U/L Total Protein 6.3 (6.0-8.3) gm/dl Albumin 3.8 (3.4-5.0) gm/dl Globulin 2.5 (2.5-4.0) gm/dl Albumin/Globulin Ratio 1.5 (0.9-2) Urine Color Urine Appearance (Clear) Urine pH (4.5-7.5) Ur Specific [place] (1.000-1.030) Urine Protein (Negative) Urine Glucose (UA) (Negative) Urine Ketones (Negative) Urine Blood (Negative) Urine Nitrite (Negative) Urine Bilirubin (Negative) Urine Urobilinogen (Negative) Ur Leukocyte Esterase (Negative) Urine WBC (Auto) (0-5) /hpf Urine RBC (Auto) (0-4) /hpf U Hyaline Cast (Auto) (0-5) /lpf U Epithel Cells (Auto) (0-5) /lpf Urine Bacteria (Auto) (Negative) Urine Crystals Urine Yeast (None Prsent) 12/26/22 12/26/22 Range/Units 16:50 14:36 WBC (4.8-10.8) K/ul RBC (4.20-5.40) M/uL Hgb (12.0-16.0) g/dl Hct (37.0-47.0) % MCV (80.0-100.0) fL MCH (25.0-34.0) pg MCHC (32.0-36.0) g/dL RDW Std Deviation (36.4-46.3) fL RDW Coeff of Sunitha (11.5-14.5) % Plt Count (130-400) K/uL MPV (9.4-12.4) fL Immature Gran % (Auto) % Neut % (Auto) % Lymph % (Auto) % [place] % (Auto) % Eos % (Auto) % Baso % (Auto) % Neut # (Auto) (1.40-6.50) K/uL Lymph # (Auto) (1.20-3.40) K/uL [place] # (Auto) (0.11-0.59) K/uL Eos # (Auto) (0.00-0.50) K/uL Baso # (Auto) (0.00-0.20) K/uL Immature Gran # (Auto) (0.01-0.20) K/uL Sodium (136-145) mmol/L Potassium (3.5-5.1) mmol/L Chloride (98-107) mmol/L Carbon Dioxide (21-32) mmol/L Anion Gap (3-11) BUN (6-23) mg/dl Creatinine (0.6-1.2) mg/dl Est Cr Clr Drug Dosing ml/min Est GFR ( Amer) ml/min Est GFR (Non-Af Amer) ml/min BUN/Creatinine Ratio (10-20) Glucose (70-99(Fasting)) mg/dl POC Glucose 89 (70-99) mg/dl Calcium (8.6-10.3) mg/dl Magnesium (1.7-2.4) mg/dl Total Bilirubin (0.2-1.0) mg/dl AST (13-39) U/L ALT (7-52) U/L Alkaline Phosphatase (34-104) U/L Total Protein (6.0-8.3) gm/dl Albumin (3.4-5.0) gm/dl Globulin (2.5-4.0) gm/dl Albumin/Globulin Ratio (0.9-2) Urine Color Dark Yellow Urine Appearance Turbid A (Clear) Urine pH 6.5 (4.5-7.5) Ur Specific [place] 1.025 (1.000-1.030) Urine Protein 2+ H (Negative) Urine Glucose (UA) 1+ H (Negative) Urine Ketones Trace H (Negative) Urine Blood Trace H (Negative) Urine Nitrite Negative (Negative) Urine Bilirubin Negative (Negative) Urine Urobilinogen Negative (Negative) Ur Leukocyte Esterase 2+ H (Negative) Urine WBC (Auto) >30 H (0-5) /hpf Urine RBC (Auto) 5-10 H (0-4) /hpf U Hyaline Cast (Auto) 1-5 (0-5) /lpf U Epithel Cells (Auto) >30 H (0-5) /lpf Urine Bacteria (Auto) Negative (Negative) Urine Crystals Not Reportable Urine Yeast Present A (None Prsent) PG Care Time/CCT Total # of Minutes Spent Total Time Spent with Patient: Total time spent is greater than 50% in coordination of care (as documented) at patient's floor/unit and/or counseling patient: Coding Level of Care Code 09149 SUB INP/OBS CARE 3/50MIN Diagnoses Right hip pain M25.551 Acute UTI (urinary tract infection) N39.0 Abdominal pain R10.9 Ataxia R27.0 DM type 2 (diabetes mellitus, type 2) E11.9 S/P deep brain stimulator placement Z96.89 Orthostatic hypotension I95.1 Acute dehydration E86.0 Hypokalemia E87.6 Ovarian cyst, right N83.201 Metabolic encephalopathy G93.41
[2022-12-27] MEDS: INSULIN ASPART PER UNIT CHARGE SC SCH ×4 (08:40→20:50)
[2022-12-27] MEDS: LANTUS PER UNIT CHARGE SQ SCH ×2 (08:40→20:50)
[2022-12-27] MEDS: FAMOTIDINE 20 MG TAB PO SCH (08:41)
--- NOTE | 2022-12-27 17:15 | Orthopedic Progress Note ---
Date of Service December 27, 2022 Assessment & Plan (1) Trochanteric bursitis, right hip: Plan: Postinjection day #1 with improvement in trochanteric bursitis right hip and iliotibial band syndrome had previously been resistant to conservative management. Weightbearing as tolerated with assistance. Continue use of Lidoderm patch right hip as needed for treatment of pain. Alternating K-pad and ice pack right hip Encourage continued application of ice to the right hip on and off for the next 48 hours. Thank you for the opportunity consult in the care of this patient. Stef Woodward [facility] [phone] (2) Iliotibial band syndrome, right leg: (3) Right hip pain: Admission and Anticipated Discharge Date Admission Date: December 21, 2022 Subjective Patient seen and examined during rounds. Patient awake and alert. Patient states right hip pain is markedly improved after injection performed yesterday. States abdominal pain is also decreased somewhat with appetite improved. States normal bowel movement yesterday. Physical Exam Constitutional: WD/WN, vitals as above Eyes: PERRL, conjunctivae normal, anicteric sclerae ENMT: external ear and nose normal, oropharynx normal Neck: trachea midline, no thyromegaly Respiratory: normal respiratory effort, lungs clear to auscultation Musculoskeletal: Right hip injection site benign. Marked decrease in tenderness to palpation to the right trochanteric bursa and right iliotibial band. No erythema or induration of the right trochanteric bursal region. Bed mobility has improved today compared to yesterday. Right hip and trochanteric region less irritable with active and passive range of motion. Distal neurovascular status intact. Pedal pulses palpable. Calves are soft. Homans negative. Skin: no rashes, warm and dry Lymphatic: no cervical or axillary lymphadenopathy Results & Data Vital Signs (Past 12 Hours) Vital Signs Temp Pulse Resp BP Pulse Ox O2 Del Method 12/27/22 15:21 36.7 C 61 16 122/74 97 Room Air 12/27/22 07:03 36.5 C 61 18 137/79 98 Room Air
[2022-12-27] MEDS: ENOXAPARIN INJ 40 MG/0.4 ML SYR SQ SCH (17:35)
[2022-12-27] MEDS: MELATONIN 3 MG TAB PO SCH (20:42)
[2022-12-27] MEDS: traMADol HCL 50 MG TABLET PO PRN (20:42)
[2022-12-27] MEDS: ROSUVASTATIN CALCIUM 20 MG TAB PO SCH (20:42)
[2022-12-28] MEDS: KETOROLAC TROMETHAMINE 15 MG/ML VIAL IV PRN ×2 (04:42→11:41)
[2022-12-28] MEDS: ACETAMINOPHEN 500 MG TAB PO SCH ×3 (04:42→19:55)
[2022-12-28] MEDS: ONDANSETRON INJ 2 MG/ML 2 ML VIAL IV PRN (05:19)
[2022-12-28] MEDS: traMADol HCL 50 MG TABLET PO PRN ×4 (05:47→19:59)
[2022-12-28] MEDS: LIDOCAINE 5% 1 PATCH TD PRN (05:48)
[2022-12-28] MEDS: DICLOFENAC SOD 1% GEL 100 GM TUBE EXT PRN (07:51)
[2022-12-28] MEDS: ESCITALOPRAM OXALATE 20 MG TAB PO SCH (07:53)
[2022-12-28] MEDS: PANTOprazole 40 MG TAB PO SCH (07:53)
[2022-12-28] MEDS: CARBIDOPA/LEVODOPA 25/100MG TAB PO SCH ×3 (07:53→19:55)
[2022-12-28] MEDS: MULTIVITAMIN TAB PO SCH (07:53)
[2022-12-28] MEDS: PRIMIDONE 50 MG TAB PO SCH ×2 (07:53→19:55)
[2022-12-28] MEDS: FAMOTIDINE 20 MG TAB PO SCH (07:57)
--- NOTE | 2022-12-28 08:01 | Hospitalist Progress Note ---
Date of Service December 28, 2022 Assessment & Plan (1) Right hip pain: Plan: Admitted w/ n/v/abdominal pain after tx for Klebsiella UTI. Completed course abx while inpatient as below Having ongoing RIGHT hip discomfort Lumbar spine/hip/pelvis xray negative for acute fracture US pelvic ordered for R abdominal pain, not able to be visualized. BOAT CANVAS MAKER AND INSTALLER consulted and rec repeating US in outpatient setting Ongoing pain prompted CT RIGHT hip to be obtained --> NEGATIVE for fracture Given trial prednisone x 1 w/ some improvement. Toradol overnight and consultation w/ Dr Woodward undertaken for possible trochanteric bursitis/IT band syndrome Pain control w/ Tylenol and topicals. tramadol available for breakthrough s/p injection 12/[address] Woodward to right trochanteric bursa Ice to affected area, Toradol IV (4 doses ordered) for break though Nadia is MUCH more comfortable on examination today with regards to her hip pain, nontender to palpation but having ABDOMINAL pain/suprapubic tenderness -Repeat urine cx initially negative but was repeated given burning w/ urination. NO yeast infection on exam 12/27 but urine cx today finalized w/ charles glabrata and will trial fluconazole 200mg po daily and see if improvement Continue PT/OT, CM to follow -- [facility] to offer bed this upcoming week (2) Acute UTI (urinary tract infection): Plan: Presenting with nausea/vomiting and abdominal pain after recent diagnosis for Klebsiella UTI resistant to Bactrim/intermediate resistance to Unasyn Switched from Bactrim to Augmentin due to sensitivities, but developed abdominal pain/RLE discomfort requiring admission Completed 5 days IV Rocephin while inpatient, discontinued further. Repeat urine cx NEGATIVE on admission WBC wnl, afebrile, Pain w/ urination 12/26 and repeat urine cx pending, now finalized w/ charles glabrata --> fluconazole 200mg po daily and monitor response. Has been afebrile/no leukocytosis (but did have left shift on prior labs), do not suspect systemic infection (3) Abdominal pain: Plan: reported. stool testing for cdiff positive gene/negative toxin. was placed on PO vanco, dc'd as toxin negative. Has completed course abx as above Monitor for any worsened diarrhea/need to retest Of note, hiatal hernia/possible esophagitis on imaging On pepcid daily, added protonix and can consider increasing to BID reported improvement in PO intake since starting and will continue. No pain w/ swallowing Recurrent UTI, ?from bursitis/pain control? NO ABDOMINAL PAIN REPORTED 12/27 SINCE INJECTION TO HER HIP INJECTION DAY PRIOR, now w/ suprapubic pain as above, fluconazole started for urine cx findings (4) Ataxia: Plan: Secondary parkinsonism, cognitive decline Follows with neurology as outpatient. 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 Low suspicion for Alzheimer's. Cognitive decline but no hallucinations. Not classic dx LBD Per patient's daughter normally Jackie has intact and relatively normal mentation and is significantly different from her usual baseline Tx for UTI Changed pain meds and discontinued further dilaudid as above Appearing much improved 12/27 w/ ambulation since hip pain improved, continue therapy/juniper planned at [place] (5) DM type 2 (diabetes mellitus, type 2): Plan: A1c 8.5 from 9.3 previously On lantus 28u daily and 20u short acting at baseline recently, metformin 500mg BID Continue lantus 14u BID, sliding scale insulin BSGs acceptable Monitor (6) S/P deep brain stimulator placement: Plan: placement in 2013 as above (7) Orthostatic hypotension: Plan: Orthostatic hypotension Possible side effect of carbidopa levodopa, but patient has had significant therapeutic benefit from this and is not recommended to be held Noted, normotensive on assessment PT/OT consults as above (8) Acute dehydration: Plan: s/p IVF improvement in PO intake since PPI therapy Monitor (9) Hypokalemia: Plan: PO replacement ordered, normal on AM labs w/ improvement in PO intake reported Mag wnl Repeat stable (10) Ovarian cyst, right: Plan: *Of note, patient w/ 4.2 cm cystic focus within the right hemipelvis. This likely arises from the right ovary. This may reflect a cyst however is abnormal in a postmenopausal patient and follow-up nonemergent pelvic ultrasound is recommended to assess for complexity. ?If this is the location for her pain reported to her right groin/hip Pelvic US for further eval ordered - none visualized. F/u outpt recd (11) Metabolic encephalopathy: Plan: 2nd to UTI/delirium on dementia at baseline along with possible opiate use w/ Dilaudid 0.5mg IV (used 4 doses yesterday) D/c further diluadid, scheduling Tylenol and will attempt pain control w/ tramadol as above as as tolerated in the past. melatonin HS to help w/ sleep schedule Attempting better pain control as above, tx urine findings (hip improved) Frequent orientation Appears alert to person/place, improved from day prior. Pain much improved since injection CODE STATUS: DNR/DNI. Patient formally full code. Did discuss with Nadia and her family at bedside, Jackie reports that in the event of a cardiac or pulmonary arrest she would not want brought back and would want providers to "let me go " (12) Trochanteric bursitis, right hip: (13) Iliotibial band syndrome, right leg: (14) Charles cystitis: Plan DVT prophylaxis: was not on lovenox on admission, venous doppler checked due to prior pain, negative for DVT and Lovenox SQ ordered Continued inpatient stay, therapy evals for rehab (from [facility]) --> [facility] to accept this week, CM following Admission and Anticipated Discharge Date Admission Date: December 21, 2022 Subjective Eval this morning, in bed on bedpain, reporting RLQ/groin discomfort as well as diarrhea. Will check KUB, repeat stool studies given recent abx. She notes she thinks they hit her bone w/ the injection -- discussed bursa surrounding bone. After RN took patient after BM (larger formed stool) patient denied any further abdominal pain, possible having pain from needing to have bowel movement suspected. Appears baseline cognitively, however nursing notes patient had been screaming overnight for reported pain (however Nadia reports the hip pain improved, more abdominal pain today), but does report pain at site of injection (Area doesn't appear red/warmth.) Will call daughter this evening w/ update regarding plan as requested. Physical Exam Physical Exam: General: elderly female sitting up in bed on bedpan, reports right lower abdominal pain but not overtly tender to palpation HEENT; head normocephalic, atraumatic, mmm, trachea midline Resp; even/unlabored, no w/c/r, on room air CV: RRR, no significant m/r/g, no pitting edema/calf tenderness GI: +BS, soft but tenderness to palpation RLQ/suprapubic in nature : no santana MSK/Neuro: significant improvement in tenderness to greater trochanter/anterior thigh as well as IT band, compartments soft, pulses palpable, NVI Psych: alert to person/place, cooperative with exam Results & Data Results & Data Vital Signs (Past 12 Hours) Vital Signs Temp Pulse Resp BP BP Pulse Ox O2 Del Method 12/28/22 07:43 36.7 C 62 16 170/89 H 170/89 H 97 Room Air 12/27/22 20:27 36.8 C 65 18 143/70 H 97 Room Air Laboratory Results 12/28/22 12/28/22 12/28/22 Range/Units Unknown 11:42 07:41 POC Glucose 255 H 128 H (70-99) mg/dl Stl C. diff Tox B Gene Negative Cdiff Gene (Neg) 12/27/22 12/27/22 Range/Units 20:42 16:48 POC Glucose 157 H 114 H (70-99) mg/dl Stl C. diff Tox B Gene (Neg) Diagnostic Findings KUB X-Ray 12/28/22 09:56 KUB HISTORY: Acute generalized abdominal pain with diarrhea abd pain, diarrhea COMPARISON: CT 12/16/2022 FINDINGS: Cholecystectomy. Nonobstructive bowel gas pattern. Vascular calcifications of the pelvis. The renal shadows are obscured by bowel gas. No renal calculi. No ureteral calculi. No pneumoperitoneum or pneumatosis. No fracture. IMPRESSION: Nonobstructive bowel gas pattern. ACT 112: Negative or not required by law. The above report was generated using voice recognition software. It may contain grammatical, syntax or spelling errors. Electronically signed by: Jl Levy M.D. 12/28/2022 11:12 AM PG Care Time/CCT Total # of Minutes Spent Total Time Spent with Patient: Total time spent is greater than 50% in coordination of care (as documented) at patient's floor/unit and/or counseling patient: Coding Level of Care Code 77000 SUB INP/OBS CARE 3/50MIN Diagnoses Right hip pain M25.551 Acute UTI (urinary tract infection) N39.0 Abdominal pain R10.9 Ataxia R27.0 DM type 2 (diabetes mellitus, type 2) E11.9 S/P deep brain stimulator placement Z96.89 Orthostatic hypotension I95.1 Acute dehydration E86.0 Hypokalemia E87.6 Ovarian cyst, right N83.201 Metabolic encephalopathy G93.41 Trochanteric bursitis, right hip M70.61 Iliotibial band syndrome, right leg M76.31 Charles cystitis B37.41
[2022-12-28] MEDS: INSULIN ASPART PER UNIT CHARGE SC SCH ×4 (09:27→19:55)
[2022-12-28] MEDS: LANTUS PER UNIT CHARGE SQ SCH ×2 (09:30→20:18)
[2022-12-28] MEDS: LOPERAMIDE HCL 2 MG CAP PO PRN (09:39)
--- NOTE | 2022-12-28 11:13 | XRay Report ---
KUB HISTORY: Acute generalized abdominal pain with diarrhea abd pain, diarrhea COMPARISON: CT 12/16/2022 FINDINGS: Cholecystectomy. Nonobstructive bowel gas pattern. Vascular calcifications of the pelvis. T he renal shadows are obscured by bowel gas. No renal calculi. No ureteral calculi. No pneumoperitone um or pneumatosis. No fracture. IMPRESSION: Nonobstructive bowel gas pattern. ACT 112: Negative or not required by law. The above report was generated using voice recognition software. It may contain grammatical, syntax o r spelling errors. Electronically signed by: Jl Levy M.D. 12/28/2022 11:12 AM
[2022-12-28] MEDS: FLUCONAZOLE 100 MG TAB PO SCH (15:41)
[2022-12-28] MEDS ORDERED: traMADol HCL 50 MG TABLET PO STA (15:48)
[2022-12-28] MEDS: ENOXAPARIN INJ 40 MG/0.4 ML SYR SQ SCH (17:49)
[2022-12-28] MEDS: MELATONIN 3 MG TAB PO SCH (19:55)
[2022-12-28] MEDS: ROSUVASTATIN CALCIUM 20 MG TAB PO SCH (19:55)
[2022-12-29] MEDS: ACETAMINOPHEN 500 MG TAB PO SCH (05:57)
[2022-12-29 07:07] LABS: Basophils # (auto) 0.02 K/uL (0.00-0.20); Basophils % (auto) 0.4 %; Hematocrit (blood only) 36.6 % (37.0-47.0); Hemoglobin 12.2 g/dl (12.0-16.0); Immature Granulocytes # (auto) 0.01 K/uL (0.01-0.20); Immature Granulocytes % (auto) 0.2 %; Lymphocytes # (auto) 1.14 K/uL (1.20-3.40); Lymphocytes % (auto) 23.8 %; Mean Corpuscular Hemoglobin 28.9 pg (25.0-34.0); Mean Corpuscular Hgb Conc 33.3 g/dL (32.0-36.0); Mean Corpuscular Volume 86.7 fL (80.0-100.0); Mean Platelet Volume 10.1 fL (9.4-12.4); Monocytes # (auto) 0.46 K/uL (0.11-0.59); Monocytes % (auto) 9.6 %; Neutrophils # (auto) 3.17 K/uL (1.40-6.50); Platelet Count 175 K/uL (130-400); RDW Coefficient of Variation 13.9 % (11.5-14.5); RDW Standard Deviation 43.4 fL (36.4-46.3); Red Blood Count 4.22 M/uL (4.20-5.40)
[2022-12-29 07:40] LABS: Albumin Globulin Ratio 1.5 (0.9-2); Albumin Level 3.8 gm/dl (3.4-5.0); BUN Creatinine Ratio 19.1 (10-20); Bilirubin,Total 0.6 mg/dl (0.2-1.0); Calcium 8.9 mg/dl (8.6-10.3); Creatinine Clr Calc Pharmacy 65.3 ml/min; Est GFR (African American) 96.4 ml/min; Est GFR (Non-African American) 83.2 ml/min; Globulin 2.6 gm/dl (2.5-4.0); Potassium 4.1 mmol/L (3.5-5.1); Total Protein 6.4 gm/dl (6.0-8.3)
[2022-12-29] MEDS: LOPERAMIDE HCL 2 MG CAP PO PRN (08:11)
[2022-12-29] MEDS: PANTOprazole 40 MG TAB PO SCH (08:11)
[2022-12-29] MEDS: traMADol HCL 50 MG TABLET PO PRN ×4 (08:11→20:14)
[2022-12-29] MEDS: MULTIVITAMIN TAB PO SCH (08:12)
[2022-12-29] MEDS: ESCITALOPRAM OXALATE 20 MG TAB PO SCH (08:12)
[2022-12-29] MEDS: PRIMIDONE 50 MG TAB PO SCH ×2 (08:12→20:15)
[2022-12-29] MEDS: DICLOFENAC SOD 1% GEL 100 GM TUBE EXT PRN (08:13)
[2022-12-29] MEDS: CARBIDOPA/LEVODOPA 25/100MG TAB PO SCH ×3 (08:13→20:15)
[2022-12-29] MEDS: LIDOCAINE 5% 1 PATCH TD PRN (08:14)
[2022-12-29] MEDS: FAMOTIDINE 20 MG TAB PO SCH (08:18)
--- NOTE | 2022-12-29 08:59 | Hospitalist Progress Note ---
Date of Service December 29, 2022 Assessment & Plan (1) Right hip pain: Plan: Admitted w/ n/v/abdominal pain after tx for Klebsiella UTI. Completed course abx while inpatient as below Having ongoing RIGHT hip discomfort Lumbar spine/hip/pelvis xray negative for acute fracture US pelvic ordered for R abdominal pain, not able to be visualized. M[employer] consulted and rec repeating US in outpatient setting Ongoing pain prompted CT RIGHT hip to be obtained --> NEGATIVE for fracture Given trial prednisone x 1 w/ some improvement. Toradol overnight and consultation w/ Dr Woodward undertaken for possible trochanteric bursitis/IT band syndrome Pain control w/ Tylenol and topicals. tramadol available for breakthrough s/p injection 12/[address] Woodward to right trochanteric bursa Ice to affected area, Toradol IV (4 doses ordered) for break though Nadia is MUCH more comfortable on examination today with regards to her hip pain, nontender to palpation but having ABDOMINAL pain/suprapubic tenderness -Repeat urine cx initially negative but was repeated given burning w/ urination. NO yeast infection on exam 12/27 but urine cx today finalized w/ charles glabrata and will trial fluconazole 200mg po daily and see if improvement LFts prior normal prior (exception AST 43 on 12/26 but were normal on 12/27) - now elevated AST 581/ALT 139 but TB/ALP wnl. ?2nd to diflucan use Will hold further scheduled tylenol NO ABDOMINAL PAIN REPORTED 12/29, abdomen soft/NT. Will monitor Continue PT/OT, CM to follow -- [facility] to offer bed this upcoming week (2) Acute UTI (urinary tract infection): Plan: Presenting with nausea/vomiting and abdominal pain after recent diagnosis for Klebsiella UTI resistant to Bactrim/intermediate resistance to Unasyn Switched from Bactrim to Augmentin due to sensitivities, but developed abdominal pain/RLE discomfort requiring admission Completed 5 days IV Rocephin while inpatient, discontinued further. Repeat urine cx NEGATIVE on admission WBC wnl, afebrile, Pain w/ urination 12/26 and repeat urine cx pending, now finalized w/ charles glabrata --> fluconazole 200mg po daily and monitor response. Has been afebrile/no leukocytosis (but did have left shift on prior labs), do not suspect systemic infection (3) Abdominal pain: Plan: reported. stool testing for cdiff positive gene/negative toxin. was placed on PO vanco, dc'd as toxin negative. Has completed course abx as above Monitor for any worsened diarrhea/need to retest Of note, hiatal hernia/possible esophagitis on imaging On pepcid daily, added protonix and can consider increasing to BID reported improvement in PO intake since starting and will continue. No pain w/ swallowing Recurrent UTI, ?from bursitis/pain control? Suprapubic pain 12/28, urine cx finalized on second w/ charles glabrate and placed on fluconazole --> no abdominal pain reported 12/29 and will continue/monitor LFTs (4) Ataxia: Plan: Secondary parkinsonism, cognitive decline Follows with neurology as outpatient. 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 Low suspicion for Alzheimer's. Cognitive decline but no hallucinations. Not classic dx LBD Per patient's daughter normally Jackie has intact and relatively normal mentation and is significantly different from her usual baseline Tx for UTI Changed pain meds and discontinued further dilaudid as above Appearing much improved 12/27 w/ ambulation since hip pain improved, continue therapy/[facility] [place] -- can take 12/30 per CM (5) DM type 2 (diabetes mellitus, type 2): Plan: A1c 8.5 from 9.3 previously On lantus 28u daily and 20u short acting at baseline recently, metformin 500mg BID Continue lantus 14u BID, sliding scale insulin BSGs acceptable but peaking at lunch (her largest meal) --> will tighten CR and monitor BSGs (6) S/P deep brain stimulator placement: Plan: placement in 2013 as above (7) Orthostatic hypotension: Plan: Orthostatic hypotension Possible side effect of carbidopa levodopa, but patient has had significant therapeutic benefit from this and is not recommended to be held Noted, normotensive on assessment PT/OT consults as above (8) Acute dehydration: Plan: s/p IVF improvement in PO intake since PPI therapy Monitor (9) Hypokalemia: Plan: PO replacement ordered, normal on AM labs w/ improvement in PO intake reported Mag wnl Repeat stable (10) Ovarian cyst, right: Plan: *Of note, patient w/ 4.2 cm cystic focus within the right hemipelvis. This likely arises from the right ovary. This may reflect a cyst however is abnormal in a postmenopausal patient and follow-up nonemergent pelvic ultrasound is recommended to assess for complexity. ?If this is the location for her pain reported to her right groin/hip Pelvic US for further eval ordered - none visualized. F/u outpt recd (11) Metabolic encephalopathy: Plan: 2nd to UTI/delirium on dementia at baseline along with possible opiate use w/ Dilaudid 0.5mg IV (used 4 doses yesterday) D/c further diluadid, scheduling Tylenol and will attempt pain control w/ tramadol as above as as tolerated in the past. melatonin HS to help w/ sleep schedule Attempting better pain control as above, tx urine findings (hip improved) Frequent orientation Appears alert to person/place, improved from day prior -- reports wanting to go back to [facility] Pain much improved since injection to hip and would continue ICE as seems to be most effective for her CODE STATUS: DNR/DNI. Patient formally full code. Did discuss with Nadia and her family at bedside, Jackie reports that in the event of a cardiac or pulmonary arrest she would not want brought back and would want providers to "let me go " (12) Trochanteric bursitis, right hip: Plan: s/p injection, pain control as outlined and ICE to be continued as needed for comfort (13) Iliotibial band syndrome, right leg: (14) Charles cystitis: Plan: fluconazole as above, day 2 and monitoring LFTs on repeat. NO abdominal pain 12/29 and will continue given improvement reported Plan DVT prophylaxis: was not on lovenox on admission, venous doppler checked due to prior pain, negative for DVT and Lovenox SQ ordered Continued inpatient stay, therapy evals for rehab (from [facility]) --> [facility] can accept tomorrow, JEAN placed order for covid testing Admission and Anticipated Discharge Date Admission Date: December 21, 2022 Subjective patient evaluated this afternoon, washed up and sitting in bed, NO acute distress and when asked about hip pain she denied but was having pain this morning prior to ice pain being in place. Denied any abdominal pain, nausea or vomiting and tolerating her diet. She notes she wants to go back to [facility],. When asked if anything I could do for her, she notes "find me a rich old man" and chuckled. Appears in good spirits today. Denied chest pain or shortness of breath, fever/chills. Physical Exam 2 Physical Exam: General: elderly female sitting up in bed, NAD, smiling upon entry HEENT; head normocephalic, atraumatic, mmm, trachea midline Resp; even/unlabored, no w/c/r, on room air CV: RRR, no significant m/r/g, no pitting edema/calf tenderness GI: +BS, soft and NO tenderness today : no santana MSK/Neuro: significant improvement in tenderness to RIGHT hip/trochanteric region, compartments soft/nontender, NVI Ice pack in place Psych: alert to person/place, cooperative with exam Results & Data Results & Data Vital Signs (Past 12 Hours) Vital Signs Temp Pulse Resp BP Pulse Ox O2 Del Method 12/29/22 07:37 36.6 C 61 18 153/78 H 96 Room Air Laboratory Results 12/29/22 06:28 12/29/22 06:28 PG Care Time/CCT Total # of Minutes Spent Total Time Spent with Patient: Total time spent is greater than 50% in coordination of care (as documented) at patient's floor/unit and/or counseling patient: Coding Level of Care Code 91194 SUB INP/OBS CARE 2/35MIN Diagnoses Right hip pain M25.551 Acute UTI (urinary tract infection) N39.0 Abdominal pain R10.9 Ataxia R27.0 DM type 2 (diabetes mellitus, type 2) E11.9 S/P deep brain stimulator placement Z96.89 Orthostatic hypotension I95.1 Acute dehydration E86.0 Hypokalemia E87.6 Ovarian cyst, right N83.201 Metabolic encephalopathy G93.41 Trochanteric bursitis, right hip M70.61 Iliotibial band syndrome, right leg M76.31 Charles cystitis B37.41
[2022-12-29] MEDS: INSULIN ASPART PER UNIT CHARGE SC SCH ×4 (09:06→20:58)
[2022-12-29] MEDS: LANTUS PER UNIT CHARGE SQ SCH ×2 (09:09→20:58)
[2022-12-29] MEDS: FLUCONAZOLE 100 MG TAB PO SCH (09:09)
[2022-12-29] MEDS: ENOXAPARIN INJ 40 MG/0.4 ML SYR SQ SCH (17:31)
[2022-12-29] MEDS: MELATONIN 3 MG TAB PO SCH (20:15)
[2022-12-29] MEDS: ROSUVASTATIN CALCIUM 20 MG TAB PO SCH (20:15)
[2022-12-30] MEDS: traMADol HCL 50 MG TABLET PO PRN ×2 (06:37→12:14)
[2022-12-30 07:52] LABS: Albumin Level 4.1 gm/dl (3.4-5.0); Bilirubin,Total 0.6 mg/dl (0.2-1.0); Calcium 9.3 mg/dl (8.6-10.3); Potassium 4.2 mmol/L (3.5-5.1)
[2022-12-30] MEDS: PRIMIDONE 50 MG TAB PO SCH (07:52)
[2022-12-30] MEDS: CARBIDOPA/LEVODOPA 25/100MG TAB PO SCH ×2 (07:52→14:16)
[2022-12-30] MEDS: MULTIVITAMIN TAB PO SCH (07:53)
[2022-12-30] MEDS: FLUCONAZOLE 100 MG TAB PO SCH (07:53)
[2022-12-30] MEDS: PANTOprazole 40 MG TAB PO SCH (07:53)
[2022-12-30] MEDS: ESCITALOPRAM OXALATE 20 MG TAB PO SCH (07:54)
[2022-12-30 07:58] LABS: Albumin Globulin Ratio 1.5 (0.9-2); BUN Creatinine Ratio 17.4 (10-20); Creatinine Clr Calc Pharmacy 64.4 ml/min; Est GFR (Non-African American) 82.8 ml/min; Globulin 2.8 gm/dl (2.5-4.0); Total Protein 6.9 gm/dl (6.0-8.3)
[2022-12-30] MEDS: DICLOFENAC SOD 1% GEL 100 GM TUBE EXT PRN (07:59)
[2022-12-30] MEDS: LIDOCAINE 5% 1 PATCH TD PRN (07:59)
[2022-12-30] MEDS: LANTUS PER UNIT CHARGE SQ SCH (09:19)
[2022-12-30] MEDS: INSULIN ASPART PER UNIT CHARGE SC SCH ×2 (09:19→12:41)
[2022-12-30] MEDS: FAMOTIDINE 20 MG TAB PO SCH (09:21)
--- NOTE | 2022-12-30 13:24 | Discharge Summary ---
Date of Service December 30, 2022 Admission HPI Per Admitting Provider Nadia is a 77-year-old female with a past medical history of type 2 diabetes, chronic memory decline/cognitive decline, ambulatory dysfunction, hyperlipidemia, IBS, COPD, tremor on carbidopalevodopa without Parkinson's diagnosis, frequent UTIs who presents from [facility] with diffuse right-sided pain, agitation, confusion, and no falls. Due to her discomfort her care needs currently exceed those available at her facility and she is recommended for treatment of generalized pain and confusion with possible underlying UTI ER evaluation shows no leukocytosis, normal sodium/potassium, normal kidney function, trace BUN/creatinine contraction, infected versus contaminated UA. No fracture or acute abnormalities noted on lumbar spine x-ray or hip/pelvis x-ray. Had UTI symptoms for 1 week prior to that, and had some hematuria with urine. Had a urology culture which was sent for PCR. Was put on bactrim 'got profusely sick' after a single dose of this. Was switched wednesday to Augmentin taken BID since then. Did take a dose of Augmentin this morning. After and was doing well but did have one fall. This morning was 'hollering' in pain, which she reprots is on the right side but gestures to the mid-pubic region. Nadia was able to walk and bear weight to the bathroom and to her wheelchari with assistance without worsening pain. Discharge Data Allergies Allergy/AdvReac Type Severity Reaction Status Date / Time levetiracetam Allergy Intermediate Rash Verified 12/20/22 17:03 adhesive tape Allergy Mild Rash Verified 12/20/22 17:03 naproxen Allergy Mild RASH Verified 12/20/22 17:03 morphine Allergy Unknown Unknown Verified 12/20/22 17:03 Consultations 12/20/22 17:06 ED Decision to Admit Stat 12/23/22 17:30 Consult Gynecology Routine 12/25/22 13:09 Consult Orthopedic Surgery Routine Ordered Studies 12/22/22 18:07 CT hip RT wo con Stat 12/23/22 10:15 US pelvic complete Routine US transvaginal Routine 12/24/22 17:02 US venous doppler LE RT Routine Hospital Course (1) Right hip pain: Admitted w/ n/v/abdominal pain after tx for Klebsiella UTI. Completed course abx while inpatient as below Having ongoing RIGHT hip discomfort Lumbar spine/hip/pelvis xray negative for acute fracture US pelvic ordered for R abdominal pain, not able to be visualized. [employer] consulted and rec repeating US in outpatient setting Ongoing pain prompted CT RIGHT hip to be obtained --> NEGATIVE for fracture Given trial prednisone x 1 w/ some improvement. Toradol overnight and consultation w/ Dr Woodward undertaken for possible trochanteric bursitis/IT band syndrome Pain control w/ Tylenol and topicals. tramadol available for breakthrough s/p injection 12/[address] Woodward to right trochanteric bursa Ice to affected area, Toradol IV (4 doses ordered) for break though Nadia is MUCH more comfortable on examination today with regards to her hip pain, nontender to palpation but having ABDOMINAL pain/suprapubic tenderness -Repeat urine cx initially negative but was repeated given burning w/ urination. NO yeast infection on exam 12/27 but urine cx today finalized w/ charles glabrata and will trial fluconazole 200mg po daily and see if improvement LFts prior normal prior (exception AST 43 on 12/26 but were normal on 12/27) - now elevated AST 581/ALT 139 but TB/ALP wnl. ?2nd to diflucan use Will hold further scheduled tylenol NO ABDOMINAL PAIN REPORTED 12/29, abdomen soft/NT. Will monitor Continue PT/OT, CM to follow -- [facility] to offer bed this upcoming week (2) Acute UTI (urinary tract infection): Presenting with nausea/vomiting and abdominal pain after recent diagnosis for Klebsiella UTI resistant to Bactrim/intermediate resistance to Unasyn Switched from Bactrim to Augmentin due to sensitivities, but developed abdominal pain/RLE discomfort requiring admission Completed 5 days IV Rocephin while inpatient, discontinued further. Repeat urine cx NEGATIVE on admission WBC wnl, afebrile, Pain w/ urination 12/26 and repeat urine cx pending, now finalized w/ charles glabrata --> fluconazole 200mg po daily and monitor response. Has been afebrile/no leukocytosis (but did have left shift on prior labs), do not suspect systemic infection (3) Abdominal pain: reported. stool testing for cdiff positive gene/negative toxin. was placed on PO vanco, dc'd as toxin negative. Has completed course abx as above Monitor for any worsened diarrhea/need to retest Of note, hiatal hernia/possible esophagitis on imaging On pepcid daily, added protonix and can consider increasing to BID reported improvement in PO intake since starting and will continue. No pain w/ swallowing Recurrent UTI, ?from bursitis/pain control? Suprapubic pain 12/28, urine cx finalized on second w/ charles glabrate and placed on fluconazole --> no abdominal pain reported 12/29 and will continue/monitor LFTs (4) Ataxia: Secondary parkinsonism, cognitive decline Follows with neurology as outpatient. 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 Low suspicion for Alzheimer's. Cognitive decline but no hallucinations. Not classic dx LBD Per patient's daughter normally Jackie has intact and relatively normal mentation and is significantly different from her usual baseline Tx for UTI Changed pain meds and discontinued further dilaudid as above Appearing much improved 12/27 w/ ambulation since hip pain improved, continue therapy/[facility] planned at [facility] -- can take 12/30 per CM (5) DM type 2 (diabetes mellitus, type 2): A1c 8.5 from 9.3 previously On lantus 28u daily and 20u short acting at baseline recently, metformin 500mg BID Continue lantus 14u BID, sliding scale insulin BSGs acceptable but peaking at lunch (her largest meal) --> will tighten CR and monitor BSGs (6) S/P deep brain stimulator placement: placement in 2013 as above (7) Orthostatic hypotension: Orthostatic hypotension Possible side effect of carbidopa levodopa, but patient has had significant therapeutic benefit from this and is not recommended to be held Noted, normotensive on assessment PT/OT consults as above (8) Acute dehydration: s/p IVF improvement in PO intake since PPI therapy Monitor (9) Hypokalemia: PO replacement ordered, normal on AM labs w/ improvement in PO intake reported Mag wnl Repeat stable (10) Ovarian cyst, right: *Of note, patient w/ 4.2 cm cystic focus within the right hemipelvis. This likely arises from the right ovary. This may reflect a cyst however is abnormal in a postmenopausal patient and follow-up nonemergent pelvic ultrasound is recommended to assess for complexity. ?If this is the location for her pain reported to her right groin/hip Pelvic US for further eval ordered - none visualized. F/u outpt recd (11) Metabolic encephalopathy: 2nd to UTI/delirium on dementia at baseline along with possible opiate use w/ Dilaudid 0.5mg IV (used 4 doses yesterday) D/c further diluadid, scheduling Tylenol and will attempt pain control w/ tramadol as above as as tolerated in the past. melatonin HS to help w/ sleep schedule Attempting better pain control as above, tx urine findings (hip improved) Frequent orientation Appears alert to person/place, improved from day prior -- reports wanting to go back to [facility] Pain much improved since injection to hip and would continue ICE as seems to be most effective for her CODE STATUS: DNR/DNI. Patient formally full code. Did discuss with Nadia and her family at bedside, Jackie reports that in the event of a cardiac or pulmonary arrest she would not want brought back and would want providers to "let me go " (12) Trochanteric bursitis, right hip: s/p injection, pain control as outlined and ICE to be continued as needed for comfort (13) Iliotibial band syndrome, right leg: (14) Charles cystitis: fluconazole as above, day 2 and monitoring LFTs on repeat. NO abdominal pain 12/29 and will continue given improvement reported Plan DVT prophylaxis: was not on lovenox on admission, venous doppler checked due to prior pain, negative for DVT and Lovenox SQ ordered Continued inpatient stay, therapy evals for rehab (from [facility]) --> [facility] can accept tomorrow, CM placed order for covid testing Discharge Plan Discharge Items Patient Disposition: Transfer Nursing Home Fac Reason For Visit: UTI, ABD PAIN Discharge Diagnosis: UTI, abd pain Activity: Resume your previous activity Non-emergency contact: Primary Care Provider Call non-emergency contact if: you have any medication questions Follow-up/Referrals: Giacomo AguilarCalcium [Primary Care Provider] - Diet: Carb Consistent or DM2 Addtl Attending Provider Instructions: Continue antifungal medications for 11 days. Followup with PCP in 1-2 weeks. Pending Studies at Discharge: No Stand-Alone Forms: [employer] Skilled Items Patient informed of condition?: Yes DNR: Yes (DNR) Discharge Level of Care: Skilled Communicable Disease: No Discharge Prognosis: Stable Lines: None Urinary Catheter: No Medications and DC Order Prescriptions: New fluconazole [Diflucan] 100 mg Tablet 200 mg PO QAM Qty: 11 0RF famotidine 20 mg Tablet 20 mg PO QAM Qty: 30 0RF pantoprazole 40 mg Tablet,Delayed Release (Dr/Ec) 40 mg PO QAM Qty: 30 0RF Continued ondansetron HCl 4 mg tablet 4 mg PO Q8H PRN (Reason: nausea and vomiting) Qty: 20 3RF metformin 500 mg tablet 500 mg PO BIDM 30 Days Qty: 60 11RF (DME) pen needle, diabetic [Sure-Fine Pen [place]] 31 gauge x 3/16" needle See Rx Instructions .Route Qty: 100 3RF Rx Instructions: As directed inject once daily Dx E11.9 Saftey tips carbidopa-levodopa 25-100 mg tablet 2 tab PO TID 30 Days Qty: 180 6RF diclofenac sodium 1 % gel 2 g topical QID PRN (Reason: coccyx pain) Qty: 100 4RF fluticasone propionate 50 mcg/actuation spray,suspension 1 spray intranasal BID Qty: 16 3RF insulin glargine [Lantus Solostar U-100 Insulin] 100 unit/mL (3 mL) insulin pen 28 unit subcut QPM Qty: 15 3RF rosuvastatin 20 mg tablet 20 mg PO HS Qty: 30 11RF primidone 50 mg tablet 100 mg PO BID Qty: 120 11RF Rx Instructions: 100 mg PO = 2 tablets in the morning and 2 tablets in the evening.; escitalopram oxalate 20 mg tablet 20 mg PO DAILY Qty: 30 11RF lidocaine 4 % adhesive patch,medicated 1 patch topical DAILY PRN (Reason: Pain) Rx Instructions: on 12 hours off 12 hours loperamide [Anti-Diarrheal (loperamide)] 2 mg capsule 2 mg PO Q4H PRN (Reason: Loose Stool) Pataday Once Daily Relief 0.7 % drops 1 drp OPB QAM cyanocobalamin (vitamin B-12) [Vitamin B-12] 1,000 mcg tablet 1,000 mcg PO QAM cholecalciferol (vitamin D3) [Vitamin D3] 2,000 unit tablet 2,000 unit PO QAM multivitamin [Daily-Devin] Tablet 1 tab PO DAILY Pataday Once Daily Relief 0.7 % Drops 1 drp OPB QPM PRN (Reason: itchy eyes) nitrofurantoin macrocrystal [Macrodantin] 50 mg capsule 50 mg PO QPM Rx Instructions: must administer with a meal/food Held acetaminophen 325 mg tablet 650 mg PO Q4H MDD 3G PRN (Reason: Fever Or Pain) Hold Instructions: Resume on 01/11/23. resume after finishing fluconazole Rx Instructions: use for mild/mod pain or Temp>100 Discontinued amoxicillin-pot clavulanate [Augmentin] 500-125 mg tablet 1 tab PO BID Qty: 20 0RF Rx Instructions: BEGIN 12/17/22 X 10 DAYS. Discharge Orders: Discharge Order (Routine); Ordered 12/30/22 Ordered By: Rubio Houston Admission Data Admit Date/Time: 12/21/22 16:15 Attending Provider: Rubio Houston Admit Provider: Terrie White [facility] Other Providers: Preston Harrison; Ruy Lorenzo; Stef Woodward; Enmanuel Calderon at [place] Coding Diagnoses Right hip pain M25.551 Acute UTI (urinary tract infection) N39.0 Abdominal pain R10.9 Ataxia R27.0 DM type 2 (diabetes mellitus, type 2) E11.9 S/P deep brain stimulator placement Z96.89 Orthostatic hypotension I95.1 Acute dehydration E86.0 Hypokalemia E87.6 Ovarian cyst, right N83.201 Metabolic encephalopathy G93.41 Trochanteric bursitis, right hip M70.61 Iliotibial band syndrome, right leg M76.31 Charles cystitis B37.41
== END 2022-12-30 15:00 | DRG 757 ==
LOC: ED 11:16 → EDINP 11:16 → SUATTDRO 17:42 → 3W 20:04 → SUATTDRO 12-21 16:15

== ENCOUNTER 2023-02-28 13:23 | Inpatient (IN) ==
--- NOTE | 2023-02-28 14:14 | Emergency Department Note ---
Impression & Plan Acute UTI (urinary tract infection), Hypomagnesemia, Syncope and collapse, Nausea & vomiting, Chest pain, Acute hypokalemia ED Provider Note HISTORY OF PRESENT ILLNESS: Patient is a 77-year-old female presenting with vomiting and syncope. Patient reportedly started having nausea and multiple episodes of vomiting starting 2 hours prior to arrival at [facility]. She reportedly had 4 episodes of syncope in which she became unresponsive for a few seconds and then came to. Patient is complaining of diffuse chest pain. Denies any abdominal pain. She is diagnosed with UTI a week ago but has not yet started the antibiotics. She has not had any fevers at her facility per report. She was given 4 mg of ODT Zofran at the facility and continued to vomit. She was given 4 mg of IV Zofran prehospital. ROS: as above PHYSICAL EXAM: Constitutional: Patient appears in no acute distress. HENT: Head: Normocephalic and atraumatic. Eyes: EOMI, PERRL Mouth/Throat: Mucous membranes moist. Neck: Trachea midline. Neck supple. Cardiovascular: RRR, No murmurs, rubs or gallops. Intact distal pulses. Pulmonary/Chest: No respiratory distress. Breath sounds clear and equal bilaterally. No wheezes or rales. Abdominal: Abdomen soft, no rebound or guarding. Generalized tenderness to palpation. Musculoskeletal: No edema, tenderness or deformity noted. Skin: Warm and dry. No rash, erythema, pallor or cyanosis Psychiatric: Appropriate mood and affect for situation. Neurological: Alert. Patient has expressive aphasia. CN II-XII grossly intact, moving all extremities equally and fully. MDM: - Vitals signs stable. - History obtained via EMS and patient. Patient presents with vomiting and reported syncope. Patient reportedly started having multiple episodes of vomiting 2 hours prior to arrival. She had 4 episodes of syncope in which she became "unresponsive for a few seconds and then came to." Patient is complaining of diffuse chest pain. Was diagnosed with a UTI week ago but has not yet started antibiotics. She denies any fevers. - Chronic conditions affecting care: Recurrent UTI; sensorineural hearing loss; GERD - Differential diagnoses include, but are not limited to: Acute coronary syndrome; pulmonary embolism; dissection; tension pneumothorax; esophageal rupture; pneumonia; viral syndrome - Order placed for continuous cardiac monitoring. At this time, monitor showed rate of 87 bpm with normal sinus rhythm, per my interpretation. - External medical records reviewed. EMS run sheet was reviewed. Patient was vitally stable on arrival. She was given 4 mg of IV Zofran prehospital. - EKG interpreted by myself showed normal sinus rhythm. Rate 78 bpm. QT 420. No acute ischemic changes, but significantly poor baseline on EKG secondary to artifact. - Laboratory workup interpreted by myself showed leukocytosis (WBC 11.29) with left shift; hypokalemia (K 3.4); elevated anion gap (14); hypomagnesemia (Mg 1.5); normal troponin; normal procalcitonin - UA showed evidence of infection. Given 2g IV rocephin - Given 1g IV magnesium in ER. Given 1g IV tylenol for abdominal and chest pain. - Viral respiratory panel negative. - Given patient's chest pain, abdominal pain and reported syncopal episodes, CTA chest ordered and negative for dissection. - Patient still complaining of symptoms in ER. - Discussion was had with health care liaison about patient's case and need for admission - Hospitalist consulted for admission - Patient admitted to [facility] service for further evaluation and management. ASSESSMENT AND PLAN: Diagnosis: UTI; chest pain; hypomagnesemia; hypokalemia; nausea and vomiting; syncope Plan: admit Past Med/Surg History Medical History Coccygeal fracture Chest pain Nausea Constipation Elevated AST (SGOT) Fall Acute UTI Fall Asthma Recurrent urinary tract infection Tubular adenoma of colon Sensorineural hearing loss (SNHL) of both ears GERD (gastroesophageal reflux disease) Surgical History Status post tubal ligation S/P sinus surgery S/P cholecystectomy S/P deep brain stimulator placement (08/20/16) Family History Father Cancer Mother Depression Hypertension Stroke Grandmother Breast cancer Mother Myocardial infarction Denies family history of Ovarian cancer Prostate cancer Colorectal cancer Social History Smoking Status: Former smoker Second Hand Exposure: No; Do You Dip or Chew Tobacco: No; Hx Alcohol Use: No Hx Substance Use: No Preferred Language: Chinese Communication Ability: Effective Production Control Technologist Required: No Beliefs That Will Affect Care: None marital status: / Current Living Situation: Correction current occupational status: retired Feels Safe at Home: Yes caffeine: Yes Dental Care, Regularly: No Physical Activity Frequency: Does not Exercise Seatbelt Use: always Sunscreen Use: No Assistive Devices: Denture - Upper, Denture - Lower and Walker Allergies Allergies Allergy/AdvReac Type Severity Reaction Status Date / Time levetiracetam Allergy Intermediate Rash Verified 01/29/23 12:50 adhesive tape Allergy Mild Rash Verified 01/29/23 12:50 naproxen Allergy Mild RASH Verified 01/29/23 12:50 morphine Allergy Unknown Unknown Verified 01/29/23 12:50 Home Meds Home Medications Medication Instructions Recorded Confirmed cholecalciferol (vitamin D3) 50 2,000 unit PO QAM 09/08/18 02/28/23 mcg (2,000 unit) tablet (Vitamin D3) cyanocobalamin (vitamin B-12) 1,000 mcg PO QAM 09/08/18 02/28/23 1,000 mcg tablet (Vitamin B-12) acetaminophen 325 mg tablet 650 mg PO Q4H PRN Fever Or Pain 05/13/21 02/28/23 lidocaine 4 % topical patch 1 patch topical DAILY PRN Pain 06/03/21 02/28/23 olopatadine 0.7 % eye drops 1 drp OPB QAM 03/04/22 02/28/23 (Pataday Once Daily Relief) loperamide 2 mg capsule 2 mg PO Q4H PRN Loose Stool 07/07/22 02/28/23 (Anti-Diarrheal (loperamide)) multivitamin (Daily-Devin tablet) 1 tab PO DAILY 09/03/22 02/28/23 olopatadine 0.7 % eye drops 1 drp OPB QPM PRN itchy eyes 09/03/22 02/28/23 (Pataday Once Daily Relief) nitrofurantoin macrocrystal 50 mg 50 mg PO QPM 12/20/22 02/28/23 capsule (Macrodantin) Previous Rx's Medication Instructions Recorded ondansetron HCl 4 mg tablet 4 mg PO Q8H PRN nausea and 05/19/22 vomiting #20 tabs metformin 500 mg tablet 500 mg PO BIDM 30 days #60 tabs 07/23/22 pen needle, diabetic 31 gauge x #100 ea 08/17/22 3/16" (Sure-Fine Pen [place]) carbidopa 25 mg-levodopa 100 mg 2 tab PO TID 30 days #180 tabs 09/09/22 tablet diclofenac sodium 1 % topical gel 2 g topical QID PRN coccyx pain 09/11/22 #100 grams fluticasone propionate 50 1 spray intranasal BID #16 grams 10/20/22 mcg/actuation nasal spray,suspension insulin glargine 100 unit/mL (3 28 unit (0.28 mL) subcut QPM #15 mL 11/11/22 mL) subcutaneous pen (Lantus Solostar U-100 Insulin) escitalopram oxalate 20 mg tablet 20 mg PO DAILY #30 tabs 12/17/22 primidone 50 mg tablet 100 mg (2 x 50 mg) PO BID #120 tabs 12/17/22 rosuvastatin 20 mg tablet 20 mg PO HS #30 tabs 12/17/22 famotidine 20 mg tablet 20 mg PO QAM #30 tabs 12/30/22 pantoprazole 40 mg tablet,delayed 40 mg PO QAM #30 tabs 12/30/22 release polyethylene glycol 3350 17 17 g PO DAILY PRN constipation 01/29/23 gram/dose oral powder (Miralax) #119 grams sulfamethoxazole 800 1 tab PO BID 5 days #10 tabs 02/26/23 mg-trimethoprim 160 mg tablet (Bactrim DS) Results & Data (ED) Vital Signs Vital Signs - 24 hr 02/28/23 12:52 02/28/23 14:00 02/28/23 14:12 Temperature 36.2 C L Temperature Source Oral Pulse Rate 76 77 80 Pulse Rate [Apical] Pulse Rhythm Regular Regular Pulse Rhythm [Apical] Pulse Strength Normal Pulse Strength [Apical] Respiratory Rate 20 16 Respiratory Effort / Characteristics Non-Labored Spontaneous Respiratory Depth Normal Respiratory Pattern Regular Blood Pressure 135/59 L Blood Pressure Mean 84 Blood Pressure Position Semi-fowlers Pulse Oximetry 100 95 Oxygen Delivery Method Room Air Room Air Sepsis Recent Fever Within 48 Hours No Sepsis New/Unexplained Change in Mental Status Yes Sepsis Action Taken by Nursing No Action Required 02/28/23 15:38 02/28/23 18:18 Temperature Temperature Source Pulse Rate 80 Pulse Rate [Apical] 86 Pulse Rhythm Pulse Rhythm [Apical] Regular Pulse Strength Pulse Strength [Apical] Normal Respiratory Rate 16 Respiratory Effort / Characteristics Non-Labored Spontaneous Respiratory Depth Normal Respiratory Pattern Regular Blood Pressure Blood Pressure Mean Blood Pressure Position Pulse Oximetry 96 Oxygen Delivery Method Room Air Sepsis Recent Fever Within 48 Hours Sepsis New/Unexplained Change in Mental Status Sepsis Action Taken by Nursing Laboratory Data 02/28/23 14:00 02/28/23 14:00 Lab Results 02/28/23 02/28/23 Range/Units 14:00 14:11 WBC 11.29 H (4.8-10.8) K/ul RBC 5.04 (4.20-5.40) M/uL Hgb 14.9 (12.0-16.0) g/dl Hct 45.5 (37.0-47.0) % MCV 90.3 (80.0-100.0) fL MCH 29.6 (25.0-34.0) pg MCHC 32.7 (32.0-36.0) g/dL RDW Std Deviation 46.2 (36.4-46.3) fL RDW Coeff of Sunitha 14.1 (11.5-14.5) % Plt Count 215 (130-400) K/uL MPV 10.4 (9.4-12.4) fL Immature Gran % (Auto) 0.4 % Neut % (Auto) 93.1 % Lymph % (Auto) 4.2 % [place] % (Auto) 2.1 % Eos % (Auto) 0.1 % Baso % (Auto) 0.1 % Neut # (Auto) 10.52 H (1.40-6.50) K/uL Lymph # (Auto) 0.47 L (1.20-3.40) K/uL St[place]ard # (Auto) 0.24 (0.11-0.59) K/uL Eos # (Auto) 0.01 (0.00-0.50) K/uL Baso # (Auto) 0.01 (0.00-0.20) K/uL Immature Gran # (Auto) 0.04 (0.01-0.20) K/uL RBC Morphology Unremarkable PT 10.9 (9.0-12.0) Seconds INR 1.0 (0.9-1.1) Sodium 144 (136-145) mmol/L Potassium 3.4 L (3.5-5.1) mmol/L Chloride 106 (98-107) mmol/L Carbon Dioxide 24 (21-32) mmol/L Anion Gap 14 H (3-11) BUN 16 (6-23) mg/dl Creatinine 0.88 (0.6-1.2) mg/dl Est Cr Clr Drug Dosing 52.2 ml/min Est GFR ( Amer) 72.4 ml/min Est GFR (Non-Af Amer) 62.5 ml/min BUN/Creatinine Ratio 18.2 (10-20) Glucose 151 H (70-99(Fasting)) mg/dl Calcium 9.5 (8.6-10.3) mg/dl Magnesium 1.5 L (1.7-2.4) mg/dl Total Bilirubin 0.4 (0.2-1.0) mg/dl AST 23 (13-39) U/L ALT 13 (7-52) U/L Alkaline Phosphatase 62 (34-104) U/L Troponin I High Sens 5.0 (0-14) pg/ml Total Protein 7.1 (6.0-8.3) gm/dl Albumin 4.5 (3.4-5.0) gm/dl Globulin 2.6 (2.5-4.0) gm/dl Albumin/Globulin Ratio 1.7 (0.9-2) Procalcitonin 0.15 (0-0.5) ng/ml Urine Color Dark Yellow Urine Appearance Turbid A (Clear) Urine pH 6.0 (4.5-7.5) Ur Specific [place] 1.024 (1.000-1.030) Urine Protein 2+ H (Negative) Urine Glucose (UA) 2+ H (Negative) Urine Ketones Trace H (Negative) Urine Blood 1+ H (Negative) Urine Nitrite Positive A (Negative) Urine Bilirubin Negative (Negative) Urine Urobilinogen Negative (Negative) Ur Leukocyte Esterase 2+ H (Negative) Urine WBC (Auto) >30 H (0-5) /hpf Urine RBC (Auto) 0-4 (0-4) /hpf U Hyaline Cast (Auto) 1-5 (0-5) /lpf U Epithel Cells (Auto) 20-30 H (0-5) /lpf Urine Bacteria (Auto) 1+ H (Negative) Adenovirus (PCR) Not Detected (NotDetected) B. pertussis DNA (PCR) Not Detected (NotDetected) B.parapertussis DNA PCR Not Detected (NotDetected) C. pneumoniae DNA (PCR) Not Detected (NotDetected) Coronavirus OC43 (PCR) Not Detected (NotDetected) Coronavirus HKU1 (PCR) Not Detected (NotDetected) Coronavirus 229E (PCR) Not Detected (NotDetected) SARS-CoV-2 (PCR) Not Detected (NotDetected) Coronavirus NL63 (PCR) Not Detected (NotDetected) Human Metapneumovir PCR Not Detected (NotDetected) Influenza Type A (PCR) Not Detected (NotDetected) Influenza Type B (PCR) Not Detected (NotDetected) M. pneumoniae (PCR) Not Detected (NotDetected) Parainfluenza 1 (PCR) Not Detected (NotDetected) Parainfluenza 2 (PCR) Not Detected (NotDetected) Parainfluenza 3 (PCR) Not Detected (NotDetected) Parainfluenza 4 (PCR) Not Detected (NotDetected) RSV (PCR) Not Detected (NotDetected) Entero/Rhino (PCR) Not Detected (NotDetected) Administered Medications Discontinued Medications Ceftriaxone Sodium (Rocephin) 2,000 mg in 50 mls @ 100 mls/hr IV NOW STA Stop: 02/28/23 15:08 Last Infusion: 02/28/23 16:07 Dose: Infused Documented By: Admin: 02/28/23 15:20 Dose: 100 mls/hr Documented By: LORENA Acetaminophen (Ofirmev) 1,000 mg in 100 mls @ 400 mls/hr IV NOW STA Stop: 02/28/23 17:19 Last Infusion: 02/28/23 17:33 Dose: Infused Documented By: Admin: 02/28/23 17:17 Dose: 400 mls/hr Documented By: LORENA Magnesium Sulfate/Dextrose (Magnesium Sulfate / D5w) 1 gm in 100 mls @ 100 mls/hr IV NOW STA Stop: 02/28/23 18:04 Last Admin: 02/28/23 17:17 Dose: 100 mls/hr Documented By: LORENA Ioversol (Optiray 320 500ml) 118 ml IV ONCE ONE Stop: 02/28/23 15:32 Last Admin: 02/28/23 15:31 Dose: 118 ml Documented By: OKSANA Imaging Data Radiologist's Impression: Chest CTA 02/28/23 14:20 CT ANGIOGRAPHY OF THE CHEST DISSECTION PROTOCOL CLINICAL HISTORY: Chest pain radiating into abdomen; vomiting. COMPARISON STUDY: Chest radiograph January 17, 2023. Chest CT November 15, 2012. TECHNIQUE: Before and following the IV administration of 118 mL of Optiray, helical axial images of the chest were obtained. Maximal intensity projections and sagittal and coronal reformats were viewed on an independent 3D workstation. IV contrast was administered without complication. Automated exposure control was utilized for the study. A dose lowering technique was utilized adhering to the principles of ALARA. CT DOSE: 671.26 mGy.cm FINDINGS: The caliber of the thoracic aorta is normal. There is no thoracic aortic dissection or intramural hematoma. Size of the heart is normal. There is no pericardial effusion. A small hiatal hernia is noted. No pulmonary emboli are identified. There is no thoracic lymphadenopathy. A few small calcified mediastinal lymph nodes are present. Bilateral stimulators are incidentally noted. 3 cm x 2.4 cm right upper pole thyroid nodule is new since prior CT. An additional smaller hypodense nodule within the upper pole of the left lobe is noted. No pneumothorax or pleural effusion is present. There is no consolidation to suggest pneumonia. Multiple small groundglass nodules measure up to 6 mm. Several these may been present on prior exam but are better depicted on today's study. No acute fractures within the bony thorax. Biliary ductal dilatation is unchanged since prior abdominal CT and likely related to cholecystectomy. IMPRESSION: 1. No thoracic aortic dissection. 2. No acute intrathoracic findings. 3. 3 cm right upper pole thyroid nodule, new since prior CT. Thyroid ultrasound is recommended for further evaluation. 4. Multiple small groundglass nodules within the lungs measuring up to 6 mm. Several of these were likely present on prior CT but are better depicted on today's study. These may reflect adenomatous lesions. A follow-up chest CT in 6 months is recommended. ACT 112: Positive. There are findings on this exam that require communication between the performing entity and the patient following Patient Test Result Information Act ([place] Act 112) guidelines. Electronically signed by: Cornelius Collins M.D. 02/28/2023 3:59 PM Discharge Plan Visit Data Chief Complaint: Vomiting Stated Complaint: NEAR SYNCOPE, VOMITING ED Provider: Mone Bernardo Discharge Problem: Acute UTI (urinary tract infection), Hypomagnesemia, Syncope and collapse, Nausea & vomiting, Chest pain, Acute hypokalemia Forms Stand Alone Forms: [facility] Prescriptions Prescriptions: No Action ondansetron HCl 4 mg tablet 4 mg PO Q8H PRN (Reason: nausea and vomiting) Qty: 20 3RF metformin 500 mg tablet 500 mg PO BIDM 30 Days Qty: 60 11RF (DME) pen needle, diabetic [Sure-Fine Pen [place]] 31 gauge x 3/16" needle See Rx Instructions .Route Qty: 100 3RF Rx Instructions: As directed inject once daily Dx E11.9 Saftey tips carbidopa-levodopa 25-100 mg tablet 2 tab PO TID 30 Days Qty: 180 6RF diclofenac sodium 1 % gel 2 g topical QID PRN (Reason: coccyx pain) Qty: 100 4RF fluticasone propionate 50 mcg/actuation spray,suspension 1 spray intranasal BID Qty: 16 3RF insulin glargine [Lantus Solostar U-100 Insulin] 100 unit/mL (3 mL) insulin pen 28 unit subcut QPM Qty: 15 3RF rosuvastatin 20 mg tablet 20 mg PO HS Qty: 30 11RF primidone 50 mg tablet 100 mg PO BID Qty: 120 11RF Rx Instructions: 100 mg PO = 2 tablets in the morning and 2 tablets in the evening.; escitalopram oxalate 20 mg tablet 20 mg PO DAILY Qty: 30 11RF sulfamethoxazole-trimethoprim [Bactrim DS] 800-160 mg tablet 1 tab PO BID 5 Days Qty: 10 0RF lidocaine 4 % adhesive patch,medicated 1 patch topical DAILY PRN (Reason: Pain) Rx Instructions: on 12 hours off 12 hours loperamide [Anti-Diarrheal (loperamide)] 2 mg capsule 2 mg PO Q4H PRN (Reason: Loose Stool) Pataday Once Daily Relief 0.7 % drops 1 drp OPB QAM acetaminophen 325 mg tablet 650 mg PO Q4H MDD 3G PRN (Reason: Fever Or Pain) Hold Instructions: Resume on 01/11/23. resume after finishing fluconazole Rx Instructions: use for mild/mod pain or Temp>100 polyethylene glycol 3350 [Miralax] 17 gram/dose powder 17 g PO DAILY PRN (Reason: constipation) Qty: 119 0RF Rx Instructions: use if no BM after 3 days cyanocobalamin (vitamin B-12) [Vitamin B-12] 1,000 mcg tablet 1,000 mcg PO QAM cholecalciferol (vitamin D3) [Vitamin D3] 2,000 unit tablet 2,000 unit PO QAM multivitamin [Daily-Devin] Tablet 1 tab PO DAILY Pataday Once Daily Relief 0.7 % Drops 1 drp OPB QPM PRN (Reason: itchy eyes) nitrofurantoin macrocrystal [Macrodantin] 50 mg capsule 50 mg PO QPM Rx Instructions: must administer with a meal/food famotidine 20 mg Tablet 20 mg PO QAM Qty: 30 0RF pantoprazole 40 mg Tablet,Delayed Release (Dr/Ec) 40 mg PO QAM Qty: 30 0RF Referrals Referrals: Remedios Medrano CRNP [Primary Care Provider] -
[2023-02-28 14:18] LABS: Hematocrit (blood only) 45.5 % (37.0-47.0); Hemoglobin 14.9 g/dl (12.0-16.0); Mean Corpuscular Hemoglobin 29.6 pg (25.0-34.0); Mean Corpuscular Hgb Conc 32.7 g/dL (32.0-36.0); Mean Corpuscular Volume 90.3 fL (80.0-100.0); Mean Platelet Volume 10.4 fL (9.4-12.4); Platelet Count 215 K/uL (130-400); RDW Coefficient of Variation 14.1 % (11.5-14.5); RDW Standard Deviation 46.2 fL (36.4-46.3); Red Blood Count 5.04 M/uL (4.20-5.40); White Blood Count 11.29 K/ul (4.8-10.8)
[2023-02-28 14:27] LABS: Appearance Urine Turbid (Clear); Bacteria Urine Automated 1+ (Negative); Bilirubin Urine Negative (Negative); Blood Urine 1+ (Negative); Color Urine Dark Yellow; Epithelial Cell Urine Auto 20-30 /lpf (0-5); Glucose Urine UA 2+ (Negative); Ketones Urine Trace (Negative); Leukocyte Esterase Urine 2+ (Negative); Nitrite Urine Positive (Negative); Protein Urine 2+ (Negative); Specific Gravity Urine 1.024 (1.000-1.030); Urobilinogen Urine Negative (Negative); WBC Urine Automated >30 /hpf (0-5)
[2023-02-28 14:34] LABS: Albumin Globulin Ratio 1.7 (0.9-2); Albumin Level 4.5 gm/dl (3.4-5.0); BUN Creatinine Ratio 18.2 (10-20); Bilirubin,Total 0.4 mg/dl (0.2-1.0); Calcium 9.5 mg/dl (8.6-10.3); Creatinine Clr Calc Pharmacy 52.2 ml/min; Est GFR (African American) 72.4 ml/min; Est GFR (Non-African American) 62.5 ml/min; Globulin 2.6 gm/dl (2.5-4.0); Magnesium 1.5 mg/dl (1.7-2.4); Potassium 3.4 mmol/L (3.5-5.1); Total Protein 7.1 gm/dl (6.0-8.3)
[2023-02-28 14:36] LABS: Basophils # (auto) 0.01 K/uL (0.00-0.20); Basophils % (auto) 0.1 %; Eosinophils # (auto) 0.01 K/uL (0.00-0.50); Eosinophils % (auto) 0.1 %; Immature Granulocytes # (auto) 0.04 K/uL (0.01-0.20); Immature Granulocytes % (auto) 0.4 %; Lymphocytes # (auto) 0.47 K/uL (1.20-3.40); Lymphocytes % (auto) 4.2 %; Monocytes # (auto) 0.24 K/uL (0.11-0.59); Monocytes % (auto) 2.1 %; Neutrophils # (auto) 10.52 K/uL (1.40-6.50); Neutrophils % (auto) 93.1 %; RBC Morphology Unremarkable
[2023-02-28] MEDS ORDERED: cefTRIAXone SODIUM 2,000 MG/50 ML BAG IV STA (14:39)
[2023-02-28 14:44] LABS: Prothrombin Time 10.9 Seconds (9.0-12.0)
[2023-02-28 14:57] LABS: RBC Urine Automated 0-4 /hpf (0-4)
[2023-02-28 15:07] LABS: Adenovirus PCR Not Detected (NotDetected); Bordetella parapertussis PCR Not Detected (NotDetected); Bordetella pertussis PCR Not Detected (NotDetected); Chlamydia pneumoniae PCR Not Detected (NotDetected); Coronavirus 229E PCR Not Detected (NotDetected); Coronavirus CoV-2 (COVID19)PCR Not Detected (NotDetected); Coronavirus HKU1 PCR Not Detected (NotDetected); Coronavirus NL63 PCR Not Detected (NotDetected); Coronavirus OC43PCR Not Detected (NotDetected); Human Metapneumovirus PCR Not Detected (NotDetected); Influenza A PCR Not Detected (NotDetected); Influenza B PCR Not Detected (NotDetected); Mycoplasma pneumoniae PCR Not Detected (NotDetected); Parainfluenza Virus 1 PCR Not Detected (NotDetected); Parainfluenza Virus 2 PCR Not Detected (NotDetected); Parainfluenza Virus 3 PCR Not Detected (NotDetected); Parainfluenza Virus 4 PCR Not Detected (NotDetected); Respiratory Syncytial VirusPCR Not Detected (NotDetected); Rhinovirus/Enterovirus PCR Not Detected (NotDetected)
[2023-02-28] MEDS ORDERED: OPTIRAY 320 500ml IV ONE (15:31)
--- NOTE | 2023-02-28 16:01 | CT Scan Report ---
CT ANGIOGRAPHY OF THE CHEST DISSECTION PROTOCOL CLINICAL HISTORY: Chest pain radiating into abdomen; vomiting. COMPARISON STUDY: Chest radiograph January 17, 2023. Chest CT November 15, 2012. TECHNIQUE: Before and following the IV administration of 118 mL of Optiray, helical axial images of t he chest were obtained. Maximal intensity projections and sagittal and coronal reformats were viewed on an independent 3D workstation. IV contrast was administered without complication. Automated exp osure control was utilized for the study. A dose lowering technique was utilized adhering to the gil Abarca. CT DOSE: 671.26 mGy.cm FINDINGS: The caliber of the thoracic aorta is normal. There is no thoracic aortic dissection or int ramural hematoma. Size of the heart is normal. There is no pericardial effusion. A small hiatal herni a is noted. No pulmonary emboli are identified. There is no thoracic lymphadenopathy. A few small garrett cified mediastinal lymph nodes are present. Bilateral stimulators are incidentally noted. 3 cm x 2.4 cm right upper pole thyroid nodule is new since prior CT. An additional smaller hypodense nodule with in the upper pole of the left lobe is noted. No pneumothorax or pleural effusion is present. There is no consolidation to suggest pneumonia. Multiple small groundglass nodules measure up to 6 mm. Severa l these may been present on prior exam but are better depicted on today's study. No acute fractures w ithin the bony thorax. Biliary ductal dilatation is unchanged since prior abdominal CT and likely rel ated to cholecystectomy. IMPRESSION: 1. No thoracic aortic dissection. 2. No acute intrathoracic findings. 3. 3 cm right upper pole thyroid nodule, new since prior CT. Thyroid ultrasound is recommended for fu rther evaluation. 4. Multiple small groundglass nodules within the lungs measuring up to 6 mm. Several of these were li cassi present on prior CT but are better depicted on today's study. These may reflect adenomatous lesi ons. A follow-up chest CT in 6 months is recommended. ACT 112: Positive. There are findings on this exam that require communication between the performing entity and the patient following Patient Test Result Information Act ([place] Act 112) guidelines. Electronically signed by: Cornelius Collins M.D. 02/28/2023 3:59 PM
[2023-02-28] MEDS ORDERED: ACETAMINOPHEN 1,000 MG/100 ML VIAL IV STA (17:05)
[2023-02-28] MEDS ORDERED: MAGNESIUM SULFATE / D5W 1 GM/100 ML BAG IV STA (17:05)
--- NOTE | 2023-02-28 17:32 | History & Physical Report ---
Date of Service February 28, 2023 Assessment & Plan (1) Acute UTI (urinary tract infection): Plan: [facility] resident; N/V/D x 2 hours beginning the morning on 02/28, as well as 4 episodes of near syncope where the patient "went limp" for several seconds Patient had recent urine culture on 02/19 positive for Klebsiella She was prescribed Bactrim 800mg p.o. BID on 02/26, however she did not receive the prescription and was unable to start taking it, per daughter Mild leukocytosis at 11.29 with a neutrophil predominance BioFire negative Procalcitonin WNL UA positive on arrival Urine cultures ordered, pending Chest CTA revealed no acute aortic dissection; however: Multiple small groundglass nodules within the lungs (with recommended 6mo follow-up); clinically, denies respiratory symptoms; recommend outpatient pulm follow-up 3 cm right upper pole thyroid nodule (new); TSH/Free T4 ordered, pending Started on Rocephin in the ED Continue Rocephin 1 g IV q24h; recent urine culture showed susceptibility IV fluids Plasma-Lyte at 80 mL/hr x1 Clinically, patient endorses burning with urination and no abdominal pain; recommend abdomen/pelvic CT if patient becomes septic CT abdomen/pelvis on 12/16/2022 showed right ovarian cyst and bladder wall thickening suggestive of cystitis PT/OT consulted for ongoing lower leg pain Acetaminophen as needed for pain/fever Zofran as needed for nausea/vomiting A.m. CBC, BMP, mag (2) DM type 2 (diabetes mellitus, type 2): Plan: Last A1c at 8.5% on 12/24/2022 Glucose 151 on admission Hold metformin Patient normally takes Lantus 28 units QPM Lantus 14 u BID while inpatient SSI; with target BSG range 110-140mg/dL, CF 50, carb ratio 20 Keep n.p.o. for now then advance to T2DM diet as tolerated BSG ACHS Adjust regimen as needed (3) Frequent UTI: Plan: With recent [facility] hospital admission on 12/20/2022 (4) Hypomagnesemia: Plan: Mag 1.5 on arrival Magnesium sulfate 1 g IV x3 Recheck a.m. mag (5) Hypokalemia: Plan: K 3.4 on arrival K riders 10 mill equivalents x 2 Recheck a.m. BMP (6) Parkinsonism: Plan: Continue levodopa (7) Depression: Plan: Continue escitalopram (8) Essential tremor: Plan: Continue primidone (9) S/P deep brain stimulator placement: Plan: Noted Plan [facility]: [facility]/DNI T2DM diet VTE PPx: Lovenox 40 mg SQ q24h History of Present Illness Chief Complaint: Vomiting Primary Care Provider: KEILA Lopez Nadia is a 77-year-old female with PMH of COPD, IBS, depression, tremor, anxiety, insomnia, mixed hyperlipidemia, s/p deep brain stimulator placement, memory loss, T2DM, parkinsonism, and recurrent UTIs. She presented for N/V/D x 2 hours on the morning of 02/28 followed by 4 episodes of syncope where patient "went limp" for several seconds. Patient is a poor historian, and is unable to provide details of history. However, her daughter (Sierra) is at the bedside and provides additional history. Daughter reports that she usually becomes more confused with UTIs, and that she has had an acute change in mental baseline today. Patient was diagnosed with UTI from a positive urine culture on 02/19, and was supposed to receive antibiotics; however, per daughter, the doctor's office sent the prescription to the wrong pharmacy, and then [facility] needed to authorize it, but there was no one who could authorize it over the weekend. Daughter reports that patient is having similar symptoms that she has had in the past with UTIs (nausea/vomiting/confusion). Patient denies abdominal pain at time of admission, but endorses burning with urination. Hypertension at 135/59; vitals otherwise stable. ED course: Magnesium sulfate 1 g IV Rocephin 2000 mg Acetaminophen 1000 mg IV ROS difficult to assess d/t patient's current confusion; however: Patient endorses confusion, N/V/D morning of 02/28 (resolved), burning with urination, and ongoing leg pain. Patient denies fever, sweats, chills, chest pain, SOB, abdominal pain, or blood in the urine or stool. Allergies Allergy/AdvReac Type Severity Reaction Status Date / Time levetiracetam Allergy Intermediate Rash Verified 01/29/23 12:50 adhesive tape Allergy Mild Rash Verified 01/29/23 12:50 naproxen Allergy Mild RASH Verified 01/29/23 12:50 morphine Allergy Unknown Unknown Verified 01/29/23 12:50 Home Medications Medication Instructions Recorded Confirmed Type cholecalciferol (vitamin D3) 50 2,000 unit PO QAM 09/08/18 02/28/23 History mcg (2,000 unit) tablet (Vitamin D3) cyanocobalamin (vitamin B-12) 1,000 mcg PO QAM 09/08/18 02/28/23 History 1,000 mcg tablet (Vitamin B-12) acetaminophen 325 mg tablet 650 mg PO Q4H PRN Fever Or Pain 05/13/21 02/28/23 History lidocaine 4 % topical patch 1 patch topical DAILY PRN Pain 06/03/21 02/28/23 History olopatadine 0.7 % eye drops 1 drp OPB QAM 03/04/22 02/28/23 History (Pataday Once Daily Relief) ondansetron HCl 4 mg tablet 4 mg PO Q8H PRN nausea and 05/19/22 02/28/23 Rx vomiting #20 tabs loperamide 2 mg capsule 2 mg PO Q4H PRN Loose Stool 07/07/22 02/28/23 History (Anti-Diarrheal (loperamide)) metformin 500 mg tablet 500 mg PO BIDM 30 days #60 tabs 07/23/22 02/28/23 Rx pen needle, diabetic 31 gauge x #100 ea 08/17/22 02/28/23 Rx 3/16" (Sure-Fine Pen [place]) multivitamin (Daily-Devin tablet) 1 tab PO DAILY 09/03/22 02/28/23 History olopatadine 0.7 % eye drops 1 drp OPB QPM PRN itchy eyes 09/03/22 02/28/23 History (Pataday Once Daily Relief) carbidopa 25 mg-levodopa 100 mg 2 tab PO TID 30 days #180 tabs 09/09/22 02/28/23 Rx tablet diclofenac sodium 1 % topical gel 2 g topical QID PRN coccyx pain 09/11/22 02/28/23 Rx #100 grams fluticasone propionate 50 1 spray intranasal BID #16 grams 10/20/22 02/28/23 Rx mcg/actuation nasal spray,suspension insulin glargine 100 unit/mL (3 28 unit (0.28 mL) subcut QPM #15 mL 11/11/22 02/28/23 Rx mL) subcutaneous pen (Lantus Solostar U-100 Insulin) escitalopram oxalate 20 mg tablet 20 mg PO DAILY #30 tabs 12/17/22 02/28/23 Rx primidone 50 mg tablet 100 mg (2 x 50 mg) PO BID #120 tabs 12/17/22 02/28/23 Rx rosuvastatin 20 mg tablet 20 mg PO HS #30 tabs 12/17/22 02/28/23 Rx nitrofurantoin macrocrystal 50 mg 50 mg PO QPM 12/20/22 02/28/23 History capsule (Macrodantin) famotidine 20 mg tablet 20 mg PO QAM #30 tabs 12/30/22 02/28/23 Rx pantoprazole 40 mg tablet,delayed 40 mg PO QAM #30 tabs 12/30/22 02/28/23 Rx release polyethylene glycol 3350 17 17 g PO DAILY PRN constipation 01/29/23 02/28/23 Rx gram/dose oral powder (Miralax) #119 grams sulfamethoxazole 800 1 tab PO BID 5 days #10 tabs 02/26/23 02/28/23 Rx mg-trimethoprim 160 mg tablet (Bactrim DS) Past Med/Surg History Medical History Coccygeal fracture Chest pain Nausea Constipation Elevated AST (SGOT) Fall Acute UTI Fall Asthma Recurrent urinary tract infection Tubular adenoma of colon Sensorineural hearing loss (SNHL) of both ears GERD (gastroesophageal reflux disease) Surgical History Status post tubal ligation S/P sinus surgery S/P cholecystectomy S/P deep brain stimulator placement (08/20/16) Family History Father Cancer Mother Depression Hypertension Stroke Grandmother Breast cancer Mother Myocardial infarction Denies family history of Ovarian cancer Prostate cancer Colorectal cancer Social History Smoking Status: Former smoker Second Hand Exposure: No; Do You Dip or Chew Tobacco: No; Hx Alcohol Use: No Hx Substance Use: No Preferred Language: [place] Communication Ability: Effective Superintendent Horticulture Required: No Beliefs That Will Affect Care: None marital status: / Current Living Situation: Alf current occupational status: retired Feels Safe at Home: Yes caffeine: Yes Dental Care, Regularly: No Physical Activity Frequency: Does not Exercise Seatbelt Use: always Sunscreen Use: No Assistive Devices: Denture - Upper, Denture - Lower and Walker Review of Systems Review of Systems: See HPI above Physical Exam Physical Exam: General: Confused; no acute distress; non-toxic appearing; well-nourished; cooperative HEENT: normocephalic, atraumatic; no scleral icterus; PERRLA w/ EOMs intact; moist mucus membrane; vision and hearing grossly intact Neck: supple; no JVD; no lymphadenopathy; trachea midline Skin: warm, dry without signs of tenting; no cyanosis; no rashes, bruising, lesions, or erythema noted CV: chest wall NTP; RRR; S1/S2 normal; no murmurs/rubs/gallops; pulses intact and symmetric at radial, DP, and PT Lungs: no acute respiratory distress; symmetrical chest wall expansion; clear breath sounds across all lung bingham w/o adventitious sounds; no wheezing ABD: Soft, NTP in all 4 quadrants; BS present; no rebound/guarding; no ascites; no distention; positive left CVA tenderness MSK: Resting tremor in right hand; no edema noted in the LEs b/l, nonerythematous, TTP Neuro: Oriented to name, , and location; not oriented to time/month; slow to respond to questioning; no focal deficits; sensation grossly intact in the LEs B/L Results & Data Results & Data Vital Signs (Past 12 Hours) Vital Signs Temp Pulse Pulse Resp BP Pulse Ox O2 Del Method 02/28/23 15:38 86 16 96 Room Air 02/28/23 14:12 80 02/28/23 14:00 77 16 95 Room Air 02/28/23 12:52 36.2 C L 76 20 135/59 L 100 Room Air Laboratory Results Abnormal lab results 02/28/23 02/28/23 Range/Units 14:00 14:11 WBC 11.29 H (4.8-10.8) K/ul Neut # (Auto) 10.52 H (1.40-6.50) K/uL Lymph # (Auto) 0.47 L (1.20-3.40) K/uL Potassium 3.4 L (3.5-5.1) mmol/L Anion Gap 14 H (3-11) Glucose 151 H (70-99(Fasting)) mg/dl Magnesium 1.5 L (1.7-2.4) mg/dl Urine Appearance Turbid A (Clear) Urine Protein 2+ H (Negative) Urine Glucose (UA) 2+ H (Negative) Urine Ketones Trace H (Negative) Urine Blood 1+ H (Negative) Urine Nitrite Positive A (Negative) Ur Leukocyte Esterase 2+ H (Negative) Urine WBC (Auto) >30 H (0-5) /hpf U Epithel Cells (Auto) 20-30 H (0-5) /lpf Urine Bacteria (Auto) 1+ H (Negative) Diagnostic Findings Chest CTA 02/28/23 14:20 CT ANGIOGRAPHY OF THE CHEST DISSECTION PROTOCOL CLINICAL HISTORY: Chest pain radiating into abdomen; vomiting. COMPARISON STUDY: Chest radiograph January 17, 2023. Chest CT November 15, 2012. TECHNIQUE: Before and following the IV administration of 118 mL of Optiray, helical axial images of the chest were obtained. Maximal intensity projections and sagittal and coronal reformats were viewed on an independent 3D workstation. IV contrast was administered without complication. Automated exposure control was utilized for the study. A dose lowering technique was utilized adhering to the principles of ALARA. CT DOSE: 671.26 mGy.cm FINDINGS: The caliber of the thoracic aorta is normal. There is no thoracic aortic dissection or intramural hematoma. Size of the heart is normal. There is no pericardial effusion. A small hiatal hernia is noted. No pulmonary emboli are identified. There is no thoracic lymphadenopathy. A few small calcified mediastinal lymph nodes are present. Bilateral stimulators are incidentally noted. 3 cm x 2.4 cm right upper pole thyroid nodule is new since prior CT. An additional smaller hypodense nodule within the upper pole of the left lobe is noted. No pneumothorax or pleural effusion is present. There is no consolidation to suggest pneumonia. Multiple small groundglass nodules measure up to 6 mm. Several these may been present on prior exam but are better depicted on today's study. No acute fractures within the bony thorax. Biliary ductal dilatation is unchanged since prior abdominal CT and likely related to cholecystectomy. IMPRESSION: 1. No thoracic aortic dissection. 2. No acute intrathoracic findings. 3. 3 cm right upper pole thyroid nodule, new since prior CT. Thyroid ultrasound is recommended for further evaluation. 4. Multiple small groundglass nodules within the lungs measuring up to 6 mm. Several of these were likely present on prior CT but are better depicted on today's study. These may reflect adenomatous lesions. A follow-up chest CT in 6 months is recommended. ACT 112: Positive. There are findings on this exam that require communication between the performing entity and the patient following Patient Test Result Information Act ([place] Act 112) guidelines. Electronically signed by: Cornelius Collins M.D. 02/28/2023 3:59 PM Code Status & VTE Plan Code Status DNR/DNI VTE Prophylaxis Plan VTE Prophylaxis will be ordered: Yes Supervising Physician Co-Signing Physician Notes Attending addendum: I have physically seen this patient, have supervised the KP's involvement activities, and agree with the H&P unless as otherwise noted. Assessment and Plan: Urinary tract infection- follow urine culture and sensitivity most recently grew Klebsiella from urine on 02/19/2023 Previous UTI with Klebsiella on 09/16, 12/14 and 02/02 Without repeat imaging, as patient has had a number of CTs, most recently on 12/16/2022 with primarily show cystitis Most recent CT of abdomen and pelvis on 12/16/2022 was consistent with cystitis Unclear if patient was actually treated from previous episodes of infection, however, was not able to receive antibiotic from 02/19 UTI due to some type of mixup with pharmacy Empiric ceftriaxone 2 g IV daily Pulmonary nodules- Noted on CTA of chest Suggestion of adenomatous lesions Needs pulmonary follow-up 3 cm right upper lobe thyroid nodule- As noted on CTA chest Order thyroid ultrasound Order TSH, free T3 and free T4 Will need to follow-up with endocrinology Diabetes mellitus- Hold metformin Lantus and SSI as noted PG Care Time/CCT Total # of Minutes Spent Total Time Spent with Patient: Total time spent is greater than 50% in coordination of care (as documented) at patient's floor/unit and/or counseling patient: C[place] [address] INT INP/OBS CARE 3/75MIN Patient Type Established Medical Decision Making High Complexity Diagnoses Acute UTI (urinary tract infection) N39.0 Type 2 diabetes mellitus without complication, with long-term current use of insulin E11.9; Z79.4 Diabetes mellitus complication status: without complication Diabetes mellitus detention insulin use: with .net architect use Frequent UTI N39.0 Hypomagnesemia E83.42 Hypokalemia E87.6 Parkinsonism G20 Depression F32.9 Essential tremor G25.0 S/P deep brain stimulator placement Z96.89 (2) DM type 2 (diabetes mellitus, type 2) Diabetes mellitus complication status: without complication Diabetes mellitus .net architect insulin use: with .net architect use Qualified Code(s): E11.9 - Type 2 diabetes mellitus without complications; Z79.4 - USP (current) use of insulin
[2023-02-28] MEDS ORDERED: PLASMA-LYTE A 1,000 ML IV SCH (18:30)
[2023-02-28] MEDS: POTASSIUM CHLORIDE / WTR 10 MEQ/100 ML PLCT IV SCH ×2 (18:58→20:26)
[2023-02-28] MEDS: MAGNESIUM SULFATE / D5W 1 GM/100 ML BAG IV SCH ×2 (18:58→19:57)
[2023-02-28] MEDS ORDERED: POLYETHYLENE (MIRALAX) 17 GM PACK PO PRN (20:26)
[2023-02-28] MEDS ORDERED: GLUCAGON FOR INJ 1 MG VIAL SQ PRN (20:26)
[2023-02-28] MEDS ORDERED: GLUCOSE 10 TAB/TUBE PO PRN (20:26)
[2023-02-28] MEDS ORDERED: DICLOFENAC SOD 1% GEL 100 GM TUBE EXT PRN (20:26)
[2023-02-28] MEDS ORDERED: GLUCOSE 40% GEL 15 GM TUBE PO PRN (20:26)
[2023-02-28] MEDS ORDERED: ONDANSETRON INJ 2 MG/ML 2 ML VIAL IV PRN (20:26)
[2023-02-28] MEDS ORDERED: DEXTROSE 50% 50 ML SYRINGE IV PRN (20:26)
[2023-02-28] MEDS ORDERED: CARBOHYDRATES FOR HYPOGLYCEMIA PO PRN (20:26)
[2023-02-28] MEDS ORDERED: LOPERAMIDE HCL 2 MG CAP PO PRN (20:26)
[2023-02-28 20:36] LABS: Thyroid Stimulating Hormone 5.736 uIu/ml (0.300-4.500)
[2023-02-28] MEDS ORDERED: LIDOCAINE 5% 1 PATCH TD PRN (20:38)
[2023-02-28 21:11] LABS: T4 Free Thyroxine 0.68 ng/dl (0.61-1.60)
[2023-02-28] MEDS: ENOXAPARIN INJ 40 MG/0.4 ML SYR SQ SCH (22:01)
[2023-02-28] MEDS: CARBIDOPA/LEVODOPA 25/100MG TAB PO SCH (22:01)
[2023-02-28] MEDS: PRIMIDONE 50 MG TAB PO SCH (22:02)
[2023-02-28] MEDS: ROSUVASTATIN CALCIUM 20 MG TAB PO SCH (22:02)
[2023-02-28] MEDS: FLUTICASONE PROPIONATE NA SPR 16 GM BTL SCH (22:03)
[2023-02-28] MEDS: LANTUS PER UNIT CHARGE SQ SCH (22:17)
[2023-02-28] MEDS: INSULIN ASPART PER UNIT CHARGE SC SCH (22:17)
[2023-02-28] MEDS: ACETAMINOPHEN 325 MG TAB PO PRN (22:54)
[2023-03-01] MEDS ORDERED: OLANZapine 10 MG/2.1 ML SDV IM STA (00:54)
[2023-03-01 04:27] LABS: Basophils # (auto) 0.02 K/uL (0.00-0.20); Basophils % (auto) 0.3 %; Eosinophils # (auto) 0.02 K/uL (0.00-0.50); Eosinophils % (auto) 0.3 %; Hematocrit (blood only) 33.2 % (37.0-47.0); Hemoglobin 11.2 g/dl (12.0-16.0); Immature Granulocytes # (auto) 0.02 K/uL (0.01-0.20); Immature Granulocytes % (auto) 0.3 %; Lymphocytes % (auto) 6.3 %; Mean Corpuscular Hemoglobin 29.6 pg (25.0-34.0); Mean Corpuscular Hgb Conc 33.7 g/dL (32.0-36.0); Mean Corpuscular Volume 87.8 fL (80.0-100.0); Mean Platelet Volume 10.3 fL (9.4-12.4); Monocytes # (auto) 0.68 K/uL (0.11-0.59); Monocytes % (auto) 10.7 %; Neutrophils % (auto) 82.1 %; Platelet Count 143 K/uL (130-400); RDW Coefficient of Variation 14.1 % (11.5-14.5); RDW Standard Deviation 44.8 fL (36.4-46.3); Red Blood Count 3.78 M/uL (4.20-5.40); White Blood Count 6.34 K/ul (4.8-10.8)
[2023-03-01 04:40] LABS: BUN Creatinine Ratio 22.5 (10-20); Calcium 8.4 mg/dl (8.6-10.3); Creatinine Clr Calc Pharmacy 64.7 ml/min; Est GFR (African American) 93.9 ml/min; Magnesium 2.5 mg/dl (1.7-2.4); Potassium 4.2 mmol/L (3.5-5.1)
[2023-03-01] MEDS: ACETAMINOPHEN 325 MG TAB PO PRN ×3 (06:30→19:46)
--- NOTE | 2023-03-01 08:19 | Electrocardiogram Report ---
Test Reason : Blood Pressure : / mmHG Vent. Rate : 078 BPM Atrial Rate : 078 BPM P-R Int : 226 ms QRS Dur : 084 ms QT Int : 420 ms P-R-T Axes : 000 -14 071 degrees QTc Int : 478 ms Poor data quality, interpretation may be adversely affected Sinus rhythm with 1st degree A-V block Abnormal ECG When compared with ECG of 17-JAN-2023 09:57, No significant change Confirmed by Dimitrios Valladares ([id number]) on 03/01/2023 8:19:09 AM Referred By: REFERRED SELF Confirmed By:Dimitrios Valladares
[2023-03-01] MEDS: INSULIN ASPART PER UNIT CHARGE SC SCH ×4 (09:39→19:46)
[2023-03-01] MEDS: CARBIDOPA/LEVODOPA 25/100MG TAB PO SCH ×3 (09:40→19:41)
[2023-03-01] MEDS: ESCITALOPRAM OXALATE 20 MG TAB PO SCH (09:41)
[2023-03-01] MEDS: FAMOTIDINE 20 MG TAB PO SCH (09:41)
[2023-03-01] MEDS: FLUTICASONE PROPIONATE NA SPR 16 GM BTL SCH ×2 (09:41→19:41)
[2023-03-01] MEDS: PRIMIDONE 50 MG TAB PO SCH ×2 (09:42→19:40)
[2023-03-01] MEDS: PANTOprazole 40 MG TAB PO SCH (09:42)
[2023-03-01] MEDS: LANTUS PER UNIT CHARGE SQ SCH ×2 (09:49→19:47)
--- NOTE | 2023-03-01 11:13 | Hospitalist Progress Note ---
Date of Service March 01, 2023 Assessment & Plan (1) Acute UTI (urinary tract infection): Plan: Came in the morning of 02/28 for N/V/D, as well as several episodes of near syncope Patient reports her burning with urination has resolved; her main concerns are now pain in the LEs B/L, and suprapubic pain She exhibits less confusion on 03/01, and is more talkative Urine culture on 02/19 positive for Klebsiella Continue Rocephin 1 g IV q24h; recent urine culture showed susceptibility PT/OT for ongoing lower leg pain Acetaminophen as needed for pain/fever Zofran as needed for nausea/vomiting A.m. CBC, BMP TSH was mildly elevated at 5.736; free T4 WNL at 0.6; consider follow-up thyroid ultrasound Hgb 14.9 --> 11.2; clinically, suspect due to fluids; continue to monitor a.m. CBC (2) DM type 2 (diabetes mellitus, type 2): Plan: Last A1c at 8.5% on 12/24/2022 Glucose 151 on admission Hold metformin Patient normally takes Lantus 28 units QPM Lantus 14 u BID while inpatient SSI; with target BSG range 110-140mg/dL, CF 50, carb ratio 20 Keep n.p.o. for now then advance to T2DM diet as tolerated BSG ACHS Adjust regimen as needed (3) Frequent UTI: Plan: With recent [facility] hospital admission on 12/20/2022 (4) Hypomagnesemia: Plan: Mag 1.5-->2.5 S/p magnesium sulfate 1 g IV x3 Continue to monitor (5) Hypokalemia: Plan: K 3.4-->4.2 S/p K riders 10 mill equivalents x 2 Continue to monitor (6) Parkinsonism: Plan: Continue levodopa (7) Depression: Plan: Continue escitalopram (8) Essential tremor: Plan: Continue primidone (9) S/P deep brain stimulator placement: Plan: Chronic; noted Plan Disposition: MedSurg telemetry DNR/DNI T2DM diet VTE PPx: Lovenox 40 mg SQ q24h Admission and Anticipated Discharge Date Admission Date: February 28, 2023 Supervising Physician Co-Signing Physician Notes The patient was not seen by me. The chart was reviewed. Case discussed with ILYA Vasquez. Agree with assessment and plan Subjective Patient denies burning with urination She exhibits less confusion today, and is more talkative Her main concerns today are pain in her lower extremities B/L, as well as suprapubic pain She reports that she feels like she needs to "pee real bad" ROS: Denies CP, SOB, burning with urination. Review of Systems Review of Systems: See HPI above Physical Exam Physical Exam: General: no acute distress; non-toxic appearing; well-nourished; cooperative HEENT: normocephalic, atraumatic; no scleral icterus; PERRLA w/ EOMs intact; moist mucus membrane; vision and hearing grossly intact Neck: supple; no JVD; no lymphadenopathy; trachea midline Skin: warm, dry without signs of tenting; no cyanosis; no rashes, bruising, lesions, or erythema noted CV: chest wall NTP; RRR; S1/S2 normal; no murmurs/rubs/gallops; pulses intact and symmetric at radial, DP, and PT Lungs: no acute respiratory distress; symmetrical chest wall expansion; clear breath sounds across all lung bingham w/o adventitious sounds; no wheezing ABD: Soft, NTP; BS present; no rebound/guarding; no distention : Purewick in place; dark brown urine in canister MSK: no tics or fasciculations; no edema noted in the LEs b/l, nonerythematous, NTP Neuro: Oriented to name, , location; still not oriented to month; normal mood and affect; fluent speech; CN2-12 intact; sensation grossly intact in the LEs B/L Results & Data Results & Data Vital Signs (Past 12 Hours) Vital Signs Pulse Pulse Resp BP Pulse Ox O2 Del Method 03/01/23 08:20 70 12 130/51 L 99 Room Air 03/01/23 08:10 66 03/01/23 05:36 68 16 114/81 97 Room Air 03/01/23 02:17 64 18 113/57 L 97 Room Air 02/28/23 23:00 75 Laboratory Results Abnormal lab results 02/28/23 02/28/23 02/28/23 Range/Units 14:00 14:11 22:09 WBC 11.29 H (4.8-10.8) K/ul RBC (4.20-5.40) M/uL Hgb (12.0-16.0) g/dl Hct (37.0-47.0) % Neut # (Auto) 10.52 H (1.40-6.50) K/uL Lymph # (Auto) 0.47 L (1.20-3.40) K/uL [place] # (Auto) (0.11-0.59) K/uL Potassium 3.4 L (3.5-5.1) mmol/L Anion Gap 14 H (3-11) BUN/Creatinine Ratio (10-20) Glucose 151 H (70-99(Fasting)) mg/dl POC Glucose 197 H (70-99) mg/dl Calcium (8.6-10.3) mg/dl Magnesium 1.5 L (1.7-2.4) mg/dl TSH 5.736 H (0.300-4.500) uIu/ml Urine Appearance Turbid A (Clear) Urine Protein 2+ H (Negative) Urine Glucose (UA) 2+ H (Negative) Urine Ketones Trace H (Negative) Urine Blood 1+ H (Negative) Urine Nitrite Positive A (Negative) Ur Leukocyte Esterase 2+ H (Negative) Urine WBC (Auto) >30 H (0-5) /hpf U Epithel Cells (Auto) 20-30 H (0-5) /lpf Urine Bacteria (Auto) 1+ H (Negative) 03/01/23 03/01/23 Range/Units 03:42 09:15 WBC (4.8-10.8) K/ul RBC 3.78 L (4.20-5.40) M/uL Hgb 11.2 L D (12.0-16.0) g/dl Hct 33.2 L (37.0-47.0) % Neut # (Auto) (1.40-6.50) K/uL Lymph # (Auto) 0.40 L (1.20-3.40) K/uL [place] # (Auto) 0.68 H (0.11-0.59) K/uL Potassium (3.5-5.1) mmol/L Anion Gap (3-11) BUN/Creatinine Ratio 22.5 H (10-20) Glucose 119 H (70-99(Fasting)) mg/dl POC Glucose 124 H (70-99) mg/dl Calcium 8.4 L (8.6-10.3) mg/dl Magnesium 2.5 H (1.7-2.4) mg/dl TSH (0.300-4.500) uIu/ml Urine Appearance (Clear) Urine Protein (Negative) Urine Glucose (UA) (Negative) Urine Ketones (Negative) Urine Blood (Negative) Urine Nitrite (Negative) Ur Leukocyte Esterase (Negative) Urine WBC (Auto) (0-5) /hpf U Epithel Cells (Auto) (0-5) /lpf Urine Bacteria (Auto) (Negative) Diagnostic Findings Chest CTA 02/28/23 14:20 CT ANGIOGRAPHY OF THE CHEST DISSECTION PROTOCOL CLINICAL HISTORY: Chest pain radiating into abdomen; vomiting. COMPARISON STUDY: Chest radiograph January 17, 2023. Chest CT November 15, 2012. TECHNIQUE: Before and following the IV administration of 118 mL of Optiray, helical axial images of the chest were obtained. Maximal intensity projections and sagittal and coronal reformats were viewed on an independent 3D workstation. IV contrast was administered without complication. Automated exposure control was utilized for the study. A dose lowering technique was utilized adhering to the principles of ALARA. CT DOSE: 671.26 mGy.cm FINDINGS: The caliber of the thoracic aorta is normal. There is no thoracic aortic dissection or intramural hematoma. Size of the heart is normal. There is no pericardial effusion. A small hiatal hernia is noted. No pulmonary emboli are identified. There is no thoracic lymphadenopathy. A few small calcified mediastinal lymph nodes are present. Bilateral stimulators are incidentally noted. 3 cm x 2.4 cm right upper pole thyroid nodule is new since prior CT. An additional smaller hypodense nodule within the upper pole of the left lobe is noted. No pneumothorax or pleural effusion is present. There is no consolidation to suggest pneumonia. Multiple small groundglass nodules measure up to 6 mm. Several these may been present on prior exam but are better depicted on today's study. No acute fractures within the bony thorax. Biliary ductal dilatation is u nchanged since prior abdominal CT and likely related to cholecystectomy. IMPRESSION: 1. No thoracic aortic dissection. 2. No acute intrathoracic findings. 3. 3 cm right upper pole thyroid nodule, new since prior CT. Thyroid ultrasound is recommended for further evaluation. 4. Multiple small groundglass nodules within the lungs measuring up to 6 mm. Several of these were likely present on prior CT but are better depicted on today's study. These may reflect adenomatous lesions. A follow-up chest CT in 6 months is recommended. ACT 112: Positive. There are findings on this exam that require communication between the performing entity and the patient following Patient Test Result Information Act ([place] Act 112) guidelines. Electronically signed by: Cornelius Collins M.D. 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
[2023-03-01] MEDS ORDERED: cefTRIAXone SODIUM 1,000 MG in DEXTROSE 5 % MINI-B 50 ML IV SCH (15:00)
[2023-03-01] MEDS: ENOXAPARIN INJ 40 MG/0.4 ML SYR SQ SCH (19:40)
[2023-03-01] MEDS: ROSUVASTATIN CALCIUM 20 MG TAB PO SCH (19:41)
[2023-03-01] MEDS ORDERED: cefTRIAXone SODIUM 1,000 MG in DEXTROSE 5 % MINI-B 50 ML IV STA (22:16)
[2023-03-02] MEDS: ACETAMINOPHEN 325 MG TAB PO PRN ×2 (02:57→20:36)
[2023-03-02 07:15] LABS: Basophils # (auto) 0.02 K/uL (0.00-0.20); Basophils % (auto) 0.5 %; Eosinophils # (auto) 0.05 K/uL (0.00-0.50); Eosinophils % (auto) 1.2 %; Hematocrit (blood only) 32.3 % (37.0-47.0); Immature Granulocytes # (auto) 0.02 K/uL (0.01-0.20); Immature Granulocytes % (auto) 0.5 %; Lymphocytes # (auto) 0.96 K/uL (1.20-3.40); Lymphocytes % (auto) 22.7 %; Mean Corpuscular Hemoglobin 29.4 pg (25.0-34.0); Mean Corpuscular Hgb Conc 34.1 g/dL (32.0-36.0); Mean Corpuscular Volume 86.4 fL (80.0-100.0); Mean Platelet Volume 10.4 fL (9.4-12.4); Monocytes # (auto) 0.64 K/uL (0.11-0.59); Monocytes % (auto) 15.1 %; Neutrophils # (auto) 2.54 K/uL (1.40-6.50); Platelet Count 144 K/uL (130-400); RDW Coefficient of Variation 13.9 % (11.5-14.5); RDW Standard Deviation 43.5 fL (36.4-46.3); Red Blood Count 3.74 M/uL (4.20-5.40); White Blood Count 4.23 K/ul (4.8-10.8)
[2023-03-02 07:27] LABS: BUN Creatinine Ratio 15.6 (10-20); Calcium 8.8 mg/dl (8.6-10.3); Creatinine Clr Calc Pharmacy 64.1 ml/min; Est GFR (African American) 98.4 ml/min; Est GFR (Non-African American) 84.9 ml/min; Potassium 4.1 mmol/L (3.5-5.1)
[2023-03-02] MEDS: CARBIDOPA/LEVODOPA 25/100MG TAB PO SCH ×3 (10:35→20:30)
[2023-03-02] MEDS: PANTOprazole 40 MG TAB PO SCH (10:35)
[2023-03-02] MEDS: FLUTICASONE PROPIONATE NA SPR 16 GM BTL SCH ×2 (10:36→20:29)
[2023-03-02] MEDS: ESCITALOPRAM OXALATE 20 MG TAB PO SCH (10:36)
[2023-03-02] MEDS: FAMOTIDINE 20 MG TAB PO SCH (10:36)
[2023-03-02] MEDS: INSULIN ASPART PER UNIT CHARGE SC SCH ×4 (10:40→20:41)
[2023-03-02] MEDS: LANTUS PER UNIT CHARGE SQ SCH ×2 (10:46→20:41)
[2023-03-02] MEDS: PRIMIDONE 50 MG TAB PO SCH ×2 (13:01→20:30)
--- NOTE | 2023-03-02 15:15 | Hospitalist Progress Note ---
Date of Service March 02, 2023 Assessment & Plan (1) Acute UTI (urinary tract infection): Plan: Klebsiella isolated on urine culture February 19. Only pinpoint growth seen on urine culture obtained February 28. She is on day 3 of parenteral Rocephin therapy. She probably will not need any further oral antibiotic therapy at the time of discharge. (2) DM type 2 (diabetes mellitus, type 2): Plan: ADA diet. Sliding scale coverage as needed. Metformin is temporarily on hold. (3) Acute metabolic encephalopathy: Plan: Present on admission. Due to UTI. Now resolved (4) Frequent UTI: Plan: With recent [facility] hospital admission on 12/20/2022. Frequency of UTIs raise the possibility of interstitial cystitis. This will need to be addressed as an outpatient (5) Hypomagnesemia: Plan: Corrected. Serial labs (6) Hypokalemia: Plan: Corrected. Serial labs (7) Parkinsonism: Plan: Stable. Continue levodopa (8) Depression: Plan: Stable. Continue escitalopram (9) Essential tremor: Plan: Stable. Continue primidone. She has a deep brain stimulator in place Plan Hopeful discharge back to [place] to previous living arrangements tomorrow, March 03 Admission and Anticipated Discharge Date Admission Date: February 28, 2023 Subjective Alert and pleasant. Klebsiella isolated in the urine. She is now on day 3 of parenteral Rocephin therapy. Metabolic encephalopathy was present on admission but she appears to have returned to her baseline. Hypokalemia and hypomagnesemia have been corrected. Hopeful return to [place] tomorrow, March 03 Review of Systems 2 Review of Systems: Constitutional-no fever or chills ENT-no blurred vision, no double vision, no epistaxis, no sore throat Respiratory-no cough, no wheezing, no shortness of breath Cardiac-no palpitations, no chest pain, no syncope GI-no nausea, vomiting, diarrhea, melena, hematochezia -no urinary retention, no urinary incontinence, no dysuria, no hematuria Musculoskeletal-no joint pain, no muscle tenderness Skin-no bruising, no rashes, no pruritus Neuro-no isolated weakness, no paresthesia, no weakness Psych-no depression, no anxiety Physical Exam 2 Physical Exam: General-alert and oriented x3, no fevers, no chills HEENT-head atraumatic and normocephalic, pupils equal and reactive to light, extraocular muscles intact Neck-no lymphadenopathy or thyromegaly, trachea midline Chest-clear to auscultation. No rales, wheezing or rhonchi Cardiac-regular rate and rhythm, normal S1 and S2 Abdomen-normal bowel sounds, nontender, no hepatosplenomegaly Extremities-no cyanosis, clubbing, or edema Neuro-cranial nerves II through XII intact, motor and sensory function within normal limits, strength symmetrical, no focal deficits Psych-normal affect, normal mood Results & Data Results & Data Vital Signs (Past 12 Hours) Vital Signs Temp Pulse Pulse Resp BP Pulse Ox O2 Del Method 03/02/23 12:57 36.6 C 69 16 159/51 H 96 Room Air 03/02/23 07:44 61 Laboratory Results 03/02/23 06:38 03/02/23 06:38 PG Care Time/CCT Total # of Minutes Spent Total Time Spent with Patient: Total time spent is greater than 50% in coordination of care (as documented) at patient's floor/unit and/or counseling patient: Coding Level of Care Code 43325 SUB INP/OBS CARE 2/35MIN Diagnoses Acute UTI (urinary tract infection) N39.0 Type 2 diabetes mellitus without complication, with long-term current use of insulin E11.9; Z79.4 Diabetes mellitus manager search insulin use: with senior living use Diabetes mellitus complication status: without complication Acute metabolic encephalopathy G93.41 Frequent UTI N39.0 Hypomagnesemia E83.42 Hypokalemia E87.6 Parkinsonism G20 Depression F32.9 Essential tremor G25.0 (2) DM type 2 (diabetes mellitus, type 2) Diabetes mellitus senior living insulin use: with senior living use Diabetes mellitus complication status: without complication Qualified Code(s): E11.9 - Type 2 diabetes mellitus without complications; Z79.4 - [facility] (current) use of insulin
[2023-03-02] MEDS: ENOXAPARIN INJ 40 MG/0.4 ML SYR SQ SCH (20:29)
[2023-03-02] MEDS: ROSUVASTATIN CALCIUM 20 MG TAB PO SCH (20:30)
[2023-03-02] MEDS ORDERED: cefTRIAXone SODIUM 2,000 MG in DEXTROSE 5 % MINI-B 50 ML IV SCH (22:00)
[2023-03-03 07:31] LABS: Basophils # (auto) 0.02 K/uL (0.00-0.20); Basophils % (auto) 0.4 %; Eosinophils # (auto) 0.03 K/uL (0.00-0.50); Eosinophils % (auto) 0.6 %; Hematocrit (blood only) 33.4 % (37.0-47.0); Hemoglobin 11.3 g/dl (12.0-16.0); Immature Granulocytes # (auto) 0.01 K/uL (0.01-0.20); Immature Granulocytes % (auto) 0.2 %; Lymphocytes # (auto) 1.16 K/uL (1.20-3.40); Mean Corpuscular Hemoglobin 29.4 pg (25.0-34.0); Mean Corpuscular Hgb Conc 33.8 g/dL (32.0-36.0); Mean Platelet Volume 10.3 fL (9.4-12.4); Monocytes # (auto) 0.68 K/uL (0.11-0.59); Monocytes % (auto) 14.7 %; Neutrophils # (auto) 2.74 K/uL (1.40-6.50); Neutrophils % (auto) 59.1 %; Platelet Count 160 K/uL (130-400); RDW Coefficient of Variation 13.8 % (11.5-14.5); RDW Standard Deviation 43.8 fL (36.4-46.3); Red Blood Count 3.84 M/uL (4.20-5.40); White Blood Count 4.64 K/ul (4.8-10.8)
[2023-03-03 07:49] LABS: BUN Creatinine Ratio 16.1 (10-20); Calcium 8.9 mg/dl (8.6-10.3); Est GFR (African American) 99.4 ml/min; Est GFR (Non-African American) 85.8 ml/min; Potassium 3.6 mmol/L (3.5-5.1)
[2023-03-03 07:52] VITALS: RESP 17
[2023-03-03] MEDS: PRIMIDONE 50 MG TAB PO SCH (08:45)
[2023-03-03] MEDS: FAMOTIDINE 20 MG TAB PO SCH (08:46)
[2023-03-03] MEDS: CARBIDOPA/LEVODOPA 25/100MG TAB PO SCH ×2 (08:46→14:36)
[2023-03-03] MEDS: ESCITALOPRAM OXALATE 20 MG TAB PO SCH (08:47)
[2023-03-03] MEDS: PANTOprazole 40 MG TAB PO SCH (08:47)
[2023-03-03] MEDS: FLUTICASONE PROPIONATE NA SPR 16 GM BTL SCH (08:49)
[2023-03-03] MEDS: INSULIN ASPART PER UNIT CHARGE SC SCH ×2 (08:53→12:53)
[2023-03-03] MEDS: LANTUS PER UNIT CHARGE SQ SCH (08:54)
[2023-03-03 11:19] VITALS: TEMP 98.8; O2SAT 94
[2023-03-03] MEDS: ACETAMINOPHEN 325 MG TAB PO PRN (13:51)
--- NOTE | 2023-03-03 14:03 | Discharge Summary ---
Date of Service March 03, 2023 Admission HPI Per Admitting Provider Nadia is a 77-year-old female with PMH of COPD, IBS, depression, tremor, anxiety, insomnia, mixed hyperlipidemia, s/p deep brain stimulator placement, memory loss, T2DM, parkinsonism, and recurrent UTIs. She presented for N/V/D x 2 hours on the morning of 02/28 followed by 4 episodes of syncope where patient "went limp" for several seconds. Patient is a poor historian, and is unable to provide details of history. However, her daughter (Sierra) is at the bedside and provides additional history. Daughter reports that she usually becomes more confused with UTIs, and that she has had an acute change in mental baseline today. Patient was diagnosed with UTI from a positive urine culture on 02/19, and was supposed to receive antibiotics; however, per daughter, the doctor's office sent the prescription to the wrong pharmacy, and then Giacomo needed to authorize it, but there was no one who could authorize it over the weekend. Daughter reports that patient is having similar symptoms that she has had in the past with UTIs (nausea/vomiting/confusion). Patient denies abdominal pain at time of admission, but endorses burning with urination. Hypertension at 135/59; vitals otherwise stable. ED course: Magnesium sulfate 1 g IV Rocephin 2000 mg Acetaminophen 1000 mg IV ROS difficult to assess d/t patient's current confusion; however: Patient endorses confusion, N/V/D morning of 02/28 (resolved), burning with urination, and ongoing leg pain. Patient denies fever, sweats, chills, chest pain, SOB, abdominal pain, or blood in the urine or stool. Principal Diagnosis Klebsiella UTI, near syncope, acute metabolic encephalopathy, hypomagnesemia, hypokalemia Discharge Exam General-alert and oriented x3, no fevers, no chills HEENT-head atraumatic and normocephalic, pupils equal and reactive to light, extraocular muscles intact Neck-no lymphadenopathy or thyromegaly, trachea midline Chest-clear to auscultation. No rales, wheezing or rhonchi Cardiac-regular rate and rhythm, normal S1 and S2 Abdomen-normal bowel sounds, nontender, no hepatosplenomegaly Extremities-no cyanosis, clubbing, or edema Neuro-cranial nerves II through XII intact, motor and sensory function within normal limits, strength symmetrical, no focal deficits Psych-normal affect, normal mood Discharge Data Allergies Allergy/AdvReac Type Severity Reaction Status Date / Time levetiracetam Allergy Intermediate Rash Verified 01/29/23 12:50 adhesive tape Allergy Mild Rash Verified 01/29/23 12:50 naproxen Allergy Mild RASH Verified 01/29/23 12:50 morphine Allergy Unknown Unknown Verified 01/29/23 12:50 Consultations 02/28/23 17:49 ED Decision to Admit Stat Ordered Studies 02/28/23 14:20 CTA chest dissec wo/w con [CT angio chest dissec wo/w con] Stat Hospital Course (1) Acute UTI (urinary tract infection): Klebsiella isolated on urine culture February 19. Only pinpoint growth seen on urine culture obtained February 28. She received 4 days of parenteral Rocephin therapy while hospitalized. No further antibiotic treatment will be necessary. (2) DM type 2 (diabetes mellitus, type 2): ADA diet. Sliding scale coverage as needed. Metformin is temporarily on hold. (3) Acute metabolic encephalopathy: Present on admission. Due to UTI. Now resolved (4) Frequent UTI: With recent [facility] hospital admission on 12/20/2022. Frequency of UTIs raise the possibility of interstitial cystitis. This will need to be addressed as an outpatient (5) Hypomagnesemia: Corrected. Serial labs (6) Hypokalemia: Corrected. Serial labs (7) Parkinsonism: Stable. Continue levodopa (8) Depression: Stable. Continue escitalopram (9) Essential tremor: Stable. Continue primidone. She has a deep brain stimulator in place Plan Discharge today, March 03 Total Time Total Time Spent Total Time Spent (In Minutes): 45 minutes Discharge Plan Discharge Items Patient Disposition: Home - Self-Care Reason For Visit: UTI, N/V/D Discharge Diagnosis: Klebsiella UTI, acute metabolic encephalopathy, near syncope, hypomagnesemia, hypokalemia Activity: Resume your previous activity Non-emergency contact: Primary Care Provider Call non-emergency contact if: you have any medication questions and your symptoms worsen Follow-up/Referrals: Remedios Medrano CRNP [Primary Care Provider] - Diet: Carb Consistent or DM2 Addtl Attending Provider Instructions: All medications remain the same Pending Studies at Discharge: No Stand-Alone Forms: Nexopia, Smoking Cessation Medications and DC Order Prescriptions: Continued ondansetron HCl 4 mg tablet 4 mg PO Q8H PRN (Reason: nausea and vomiting) Qty: 20 3RF metformin 500 mg tablet 500 mg PO BIDM 30 Days Qty: 60 11RF (DME) pen needle, diabetic [Sure-Fine Pen [place]] 31 gauge x 3/16" needle See Rx Instructions .Route Qty: 100 3RF Rx Instructions: As directed inject once daily Dx E11.9 Saftey tips carbidopa-levodopa 25-100 mg tablet 2 tab PO TID 30 Days Qty: 180 6RF diclofenac sodium 1 % gel 2 g topical QID PRN (Reason: coccyx pain) Qty: 100 4RF fluticasone propionate 50 mcg/actuation spray,suspension 1 spray intranasal BID Qty: 16 3RF insulin glargine [Lantus Solostar U-100 Insulin] 100 unit/mL (3 mL) insulin pen 28 unit subcut QPM Qty: 15 3RF primidone 50 mg tablet 100 mg PO BID Qty: 120 11RF Rx Instructions: 100 mg PO = 2 tablets in the morning and 2 tablets in the evening.; escitalopram oxalate 20 mg tablet 20 mg PO DAILY Qty: 30 11RF rosuvastatin 20 mg tablet 20 mg PO HS Qty: 30 11RF famotidine 20 mg tablet 20 mg PO QAM Qty: 30 11RF lidocaine 4 % adhesive patch,medicated 1 patch topical DAILY PRN (Reason: Pain) Rx Instructions: on 12 hours off 12 hours loperamide [Anti-Diarrheal (loperamide)] 2 mg capsule 2 mg PO Q4H PRN (Reason: Loose Stool) Pataday Once Daily Relief 0.7 % drops 1 drp OPB QAM acetaminophen 325 mg tablet 650 mg PO Q4H MDD 3G PRN (Reason: Fever Or Pain) Hold Instructions: Resume on 01/11/23. resume after finishing fluconazole Rx Instructions: use for mild/mod pain or Temp>100 polyethylene glycol 3350 [Miralax] 17 gram/dose powder 17 g PO DAILY PRN (Reason: constipation) Qty: 119 0RF Rx Instructions: use if no BM after 3 days cyanocobalamin (vitamin B-12) [Vitamin B-12] 1,000 mcg tablet 1,000 mcg PO QAM cholecalciferol (vitamin D3) [Vitamin D3] 2,000 unit tablet 2,000 unit PO QAM multivitamin [Daily-Devin] Tablet 1 tab PO DAILY Pataday Once Daily Relief 0.7 % Drops 1 drp OPB QPM PRN (Reason: itchy eyes) pantoprazole 40 mg Tablet,Delayed Release (Dr/Ec) 40 mg PO QAM Qty: 30 0RF Discontinued sulfamethoxazole-trimethoprim [Bactrim DS] 800-160 mg tablet 1 tab PO BID 5 Days Qty: 10 0RF nitrofurantoin macrocrystal [Macrodantin] 50 mg capsule 50 mg PO QPM Qty: 30 6RF Rx Instructions: must administer with a meal/food Discharge Orders: Discharge Order (Routine); Ordered 03/03/23 Ordered By: Mina Rodriguez Admission Data Admit Date/Time: 02/28/23 18:24 Attending Provider: Mina Rodriguez Admit Provider: Preston Harrison Primary Care Provider: Remedios Medrano Other Providers: Preston Harrison Coding Level of Care Code 89022 INP/OBS DISCH >30 MIN Diagnoses Acute UTI (urinary tract infection) N39.0 Type 2 diabetes mellitus without complication, with long-term current use of insulin E11.9; Z79.4 Diabetes mellitus emt intermediate insulin use: with jail use Diabetes mellitus complication status: without complication Acute metabolic encephalopathy G93.41 Frequent UTI N39.0 Hypomagnesemia E83.42 Hypokalemia E87.6 Parkinsonism G20 Depression F32.9 Essential tremor G25.0
[2023-03-03 15:00] VITALS: BP 144/78; PULSE 75
== END 2023-03-03 15:27 | disposition home or self-care (01) | DRG 689 ==
LOC: ED 13:23 → SUATTDRO 18:24 → EDINP 18:24 → 2N 20:27

== ENCOUNTER 2023-08-24 17:32 | Inpatient (IN) ==
--- NOTE | 2023-08-24 18:12 | Emergency Department Note ---
Impression & Plan Hematuria, Urinary tract infection, Anemia ED Provider Note NAME: WAN ZAVALA AGE: 78 SEX: F : 1945 ARRIVES VIA: Walk-In INFORMANT: Patient, the patient's family members ED PROVIDER(S): Bradley Brown DO CHIEF COMPLAINT: Hematuria HPI: The patient is an 78-year-old female who presented to the emergency department for an evaluation of hematuria. The patient was recently treated by urology. She had a bladder scope and some scraping of multiple cysts on the inside of her bladder. The hematuria is been worsening. They were seen in the urology office today. A urine culture was sent. The patient [facility] a [facility]. The family was called by the personal-penitentiary and told that the patient was having worsening hematuria. The patient was told by the urology office to come the emergency department for further evaluation. ROS: See above HPI for pertinent positives & negatives. A total of 10 systems reviewed and were otherwise negative. PAST MEDICAL HISTORY: See Below PAST SURGICAL HISTORY: See Below FAMILY HISTORY: See Below SOCIAL HISTORY: See Below HOME MEDICATIONS: See Below ALLERGIES: See Below VITALS: See Below PHYSICAL EXAMINATION: GENERAL: Patient is awake alert in no acute distress patient is resting comfortably and showing no signs of anxiety EYES: The conjunctivae are clear. The pupils are round and reactive. EARS, NOSE, MOUTH AND THROAT: The nose is without any evidence of any deformity. Mucous membranes are dry. NECK: The neck is nontender and supple. RESPIRATORY: Normal respiratory effort is noted there is no evidence of wheezing rhonchi or rales CARDIOVASCULAR: Regular rate and rhythm noted there no murmurs rubs or gallops normal S1 normal S2. GASTROINTESTINAL: The abdomen is soft and nondistended. There is right-sided tenderness to palpation which is moderate. MUSCULOSKELETAL/EXTREMITIES: There is no evidence of gross deformity full range of motion is noted in the hips and shoulders. SKIN: There is no obvious evidence of any rash. There are no petechiae, pallor or cyanosis noted. NEUROLOGIC: Patient is awake alert and oriented to person place and situation. Strength is symmetric. MEDICAL DECISION MAKING: The patient is an 78-year-old female who presented to the emergency department for evaluation of hematuria. The patient had a recent procedure on her bladder. The patient had continued hematuria and was passing clots. She lives in a personal penit[facility]iary and apparently they have been calling the family with concerns of the hematuria. I discussed patient's laboratory and radiographic studies with her. The patient was treated with IV fluids and IV antibiotics. The patient has a history of previous urine infection with Pseudomonas. For this reason I discussed her condition with the on-call [facility] hospitalist as well as the on-call urology group. I feel the patient may be a better candidate for inpatient management. Triage Nursing notes reviewed. Prior medical records reviewed Vital Signs: reviewed and remarkable for no significant abnormalities Differential diagnosis: Renal colic, UTI, appendicitis, diverticulitis, mesenteric ischemia, aortic pathology, infections, inflammatory bowel disease, PUD, biliary pathology, as well as other pathologies. ER treatment provided: See below Diagnostics interpreted by me: ECG: none Cardiac Monitoring: An order was placed for continuous cardiac monitoring. The monitor shows a rate of 63 bpm with sinus rhythm. Laboratory studies: As stated above and show below. Imaging studies: See below. Radiographic imaging was reviewed by myself Consultation(s): I discussed this case with Dr. Benson who is on-call for the urology group. I discussed this case with Dr. Rider who is on-call for the [facility] hospitalist group. Past Med/Surg History Problem List (Updated 08/24/23 @ 22:53 by Bradley Brown DO) Anemia (Acute) Urinary tract infection (Acute) Hematuria (Acute) Acute UTI (Acute) Cyst of right ovary (Acute) Abdominal pain (Acute) Ground glass opacity present on imaging of lung Thyroid nodule Encounter for pre-operative examination Incontinence Bladder ulcer Seizure-like activity 02/[address] 02/2023- thyroid nodule- recommend thyroid u/s; pulmonary nodules- recommend six month CT follow up (PCP aware per records) Murmur Hypomagnesemia (Acute) Verónica cystitis Iliotibial band syndrome, right leg Trochanteric bursitis, right hip Abdominal pain Right hip pain Ovarian cyst, right Left shoulder pain Orthostatic hypotension Recurrent infections Ataxia Osteopenia Parkinsonism Pelvic pain DM type 2 (diabetes mellitus, type 2) Varicose veins of legs Vertigo (Acute) Memory loss (Chronic) Essential tremor (07/28/13) HTN, goal below 140/90 (Chronic 03/30/17) Vitamin D deficiency (Acute) Trigeminal neuralgia (Acute) Mixed hyperlipidemia (Chronic) Insomnia (Acute) Dysphagia (Acute) No dysphagia symptoms per 06/29/23 PCP records Anxiety (Chronic) Allergic rhinitis (Acute) Depression COPD (chronic obstructive pulmonary disease) (Chronic) IBS (irritable bowel syndrome) (Chronic) Tubular adenoma of colon Medical History Resides in snf facility all med hx obtained from [facility] Medical Record History of vertigo Varicose veins of both lower extremities History of trigeminal neuralgia Seizure-like activity Episode of syncope/near syncope- admitted to [facility] 02/2023 (diagnosed with UTI and acute metabolic encephalopathy) EEG 02/2023 WNL Parkinsonism Osteopenia History of orthostatic hypotension Hyperlipemia Memory loss Cognitive changes felt related to age per neurology Iliotibial band syndrome affecting right lower leg Insomnia Incontinence IBS (irritable bowel syndrome) Hypertension Essential tremor s/p bilateral DBS placement 2013 R>L hand per neuro records Diabetes mellitus, type 2 Heart murmur No significant heart valve disease per 02/2023 ECHO Depression COPD (chronic obstructive pulmonary disease) ? per [place] record, pt not on any oxygen or inhalers Bladder ulcer Following with urology Ataxia Per daughter in law- patient can usually ambulate with walker- occ will need wheelchair Anxiety History of falling Coccygeal fracture hx of Nausea Constipation Recurrent urinary tract infection Follows with ID and urology Sensorineural hearing loss (SNHL) of both ears GERD (gastroesophageal reflux disease) resolved, off PPI Surgical History Status post tubal ligation S/P sinus surgery S/P cholecystectomy S/P deep brain stimulator placement (08/20/16) Family History Father Cancer Mother Depression Hypertension Stroke Grandmother Breast cancer Mother Myocardial infarction Other Family history unknown Denies family history of Ovarian cancer Prostate cancer Colorectal cancer Social History Smoking Status: Never smoker Second Hand Exposure: No; Preferred Language: Vietnamese Communication Ability: Effective 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: No Beliefs That Will Affect Care: None marital status: / Current Living Situation: [facility] Current Living Situation Comment: resides at [facility] current occupational status: retired How many Children do You have: 3 Feels Safe at Home: Yes Childhood Exposure to Second-Hand Smoke: Yes Diet: regular caffeine: Yes Dental Care, Regularly: No Physical Activity Frequency: Does not Exercise Seatbelt Use: always Sunscreen Use: No Assistive Devices: Wheelchair Allergies Allergies Allergy/AdvReac Type Severity Reaction Status Date / Time levetiracetam Allergy Intermediate Rash Verified 08/09/23 07:05 adhesive tape Allergy Mild Rash Verified 08/09/23 07:05 naproxen Allergy Mild RASH Verified 08/09/23 07:05 morphine Allergy Unknown Unknown Verified 08/09/23 07:05 sulfamethoxazole AdvReac Mild Nausea Verified 08/09/23 07:05 [From Bactrim] trimethoprim [From Bactrim] AdvReac Mild Nausea Verified 08/09/23 07:05 Home Meds Home Medications Medication Instructions Recorded Confirmed cholecalciferol (vitamin D3) 50 2,000 unit PO QA 09/08/18 08/24/23 mcg (2,000 unit) tablet (Vitamin D3) cyanocobalamin (vitamin B-12) 1,000 mcg PO [facility] 09/08/18 08/24/23 1,000 mcg tablet (Vitamin B-12) acetaminophen 325 mg tablet 650 mg PO Q4H PRN Fever Or Pain 05/13/21 08/24/23 lidocaine 4 % topical patch 1 patch topical DAILY PRN Pain 06/03/21 08/24/23 multivitamin (Daily-Devin tablet) 1 tab PO [facility] 09/03/22 08/24/23 ascorbic acid (vitamin C) 500 mg 500 mg PO BID 06/29/23 08/24/23 capsule cranberry 500 mg capsule 500 mg PO [facility] 06/29/23 08/24/23 methenamine hippurate 1 gram tablet 1 g PO BID 06/29/23 08/24/23 olopatadine 0.7 % eye drops 1 drp ophthalmic (eye) [facility] 06/29/23 08/24/23 (Pataday Once Daily Relief) escitalopram oxalate 20 mg tablet 20 mg PO QAM 07/30/23 08/24/23 famotidine 20 mg tablet 20 mg PO 199907/30/23 08/24/23 dextromethorphan-guaifenesin 10 10 ml PO Q8 PRN Cough 08/24/23 08/24/23 mg-100 mg/5 mL oral syrup (Tussin DM) diclofenac sodium 1 % topical gel 2 g topical QID PRN Pain 08/24/23 08/24/23 fluconazole 200 mg tablet 200 mg PO DAILY 08/24/23 08/24/23 fluticasone propionate 50 1 spray intranasal DAILY 08/24/23 08/24/23 mcg/actuation nasal spray,suspension olopatadine 0.7 % eye drops 1 drp ophthalmic (eye) QPM PRN 08/24/23 08/24/23 (Pataday Once Daily Relief) allergies Previous Rx's Medication Instructions Recorded metformin 500 mg tablet 500 mg PO BIDM 30 days #60 tabs 07/23/22 pen needle, diabetic 31 gauge x #100 ea 08/17/22 3/16" (Sure-Fine Pen [place]) polyethylene glycol 3350 17 17 g PO DAILY PRN constipation 01/29/23 gram/dose oral powder (Miralax) #119 grams ondansetron HCl 4 mg tablet 4 mg PO Q8H PRN nausea and 03/17/23 vomiting #20 tabs lancets 30 gauge (Safety Seal #100 ea 05/27/23 Lancets) pen needle, diabetic, safety 30 #100 ea 05/27/23 gauge x 1/3" (Novofine Autocover) primidone 50 mg tablet 100 mg (2 x 50 mg) PO BID #120 tabs 05/31/23 insulin glargine 100 unit/mL (3 28 unit (0.28 mL) subcut QPM #15 mL 06/11/23 mL) subcutaneous pen (Lantus Solostar U-100 Insulin) diclofenac sodium 1 % topical gel 2 g topical QID PRN pain #100 grams 06/29/23 blood sugar diagnostic (OneTouch #100 ea 06/30/23 Ultra Test strips) pantoprazole 40 mg tablet,delayed 40 mg PO QAM #30 tabs 07/26/23 release rosuvastatin 20 mg tablet 20 mg PO HS #30 tabs 07/26/23 tamsulosin 0.4 mg capsule 0.4 mg PO HS #30 caps 08/09/23 oxybutynin chloride 5 mg tablet 5 mg PO Q8H PRN bladder spasms #20 08/19/23 tabs carbidopa 25 mg-levodopa 100 mg 2 tab PO TID 30 days #180 tabs 08/20/23 tablet phenazopyridine 100 mg tablet 100 mg PO TID #30 tabs 08/24/23 (Pyridium) phenazopyridine 200 mg tablet 200 mg PO Q8H PRN pain #10 tabs 08/24/23 (Pyridium) Results & Data (ED) Vital Signs Vital Signs - 24 hr 08/24/23 17:36 08/24/23 18:10 08/24/23 18:12 Temperature 36.5 C Temperature Source Temporal Artery Scan Pulse Rate 69 63 Pulse Rate [Apical] Pulse Rate from SpO2 Sensor Pulse Rhythm [Apical] Respiratory Rate 20 Respiratory Effort / Characteristics Non-Labored Spontaneous Respiratory Depth Normal Respiratory Pattern Blood Pressure 105/63 Blood Pressure [Right Arm] Blood Pressure Mean 77 Blood Pressure Mean [Right Arm] Blood Pressure Position [Right Arm] Pulse Oximetry 93 94 Oxygen Delivery Method Room Air Room Air Sepsis Recent Fever Within 48 Hours No Sepsis New/Unexplained Change in Mental Status No Sepsis Action Taken by Nursing No Action Required 08/24/23 18:12 08/24/23 18:14 08/24/23 19:00 Temperature Temperature Source Pulse Rate 67 Pulse Rate [Apical] 65 Pulse Rate from SpO2 Sensor Pulse Rhythm [Apical] Regular Respiratory Rate 20 20 Respiratory Effort / Characteristics Non-Labored Spontaneous Respiratory Depth Normal Respiratory Pattern Regular Blood Pressure 121/61 Blood Pressure [Right Arm] 122/57 L Blood Pressure Mean 82 Blood Pressure Mean [Right Arm] 78 Blood Pressure Position [Right Arm] Pulse Oximetry 94 95 Oxygen Delivery Method Room Air Room Air Sepsis Recent Fever Within 48 Hours Sepsis New/Unexplained Change in Mental Status Sepsis Action Taken by Nursing 08/24/23 19:00 08/24/23 19:00 08/24/23 19:00 Temperature Temperature Source Pulse Rate 66 Pulse Rate [Apical] Pulse Rate from SpO2 Sensor 66 Pulse Rhythm [Apical] Respiratory Rate 18 Respiratory Effort / Characteristics Respiratory Depth Respiratory Pattern Blood Pressure 121/61 121/61 Blood Pressure [Right Arm] Blood Pressure Mean 82 82 Blood Pressure Mean [Right Arm] Blood Pressure Position [Right Arm] Pulse Oximetry 95 Oxygen Delivery Method Sepsis Recent Fever Within 48 Hours Sepsis New/Unexplained Change in Mental Status Sepsis Action Taken by Nursing 08/24/23 19:06 08/24/23 19:30 08/24/23 19:30 Temperature Temperature Source Pulse Rate 68 Pulse Rate [Apical] 69 Pulse Rate from SpO2 Sensor 68 Pulse Rhythm [Apical] Respiratory Rate 15 16 Respiratory Effort / Characteristics Non-Labored Respiratory Depth Normal Respiratory Pattern Regular Blood Pressure 142/77 H Blood Pressure [Right Arm] 142/77 H Blood Pressure Mean 86 Blood Pressure Mean [Right Arm] 98 Blood Pressure Position [Right Arm] Sitting Pulse Oximetry 95 97 Oxygen Delivery Method Room Air Sepsis Recent Fever Within 48 Hours Sepsis New/Unexplained Change in Mental Status Sepsis Action Taken by Nursing 08/24/23 19:30 08/24/23 19:45 08/24/23 20:00 Temperature Temperature Source Pulse Rate 68 Pulse Rate [Apical] Pulse Rate from SpO2 Sensor 68 Pulse Rhythm [Apical] Respiratory Rate 18 Respiratory Effort / Characteristics Respiratory Depth Respiratory Pattern Blood Pressure 142/77 H 130/64 Blood Pressure [Right Arm] Blood Pressure Mean 86 92 Blood Pressure Mean [Right Arm] Blood Pressure Position [Right Arm] Pulse Oximetry 97 Oxygen Delivery Method Sepsis Recent Fever Within 48 Hours Sepsis New/Unexplained Change in Mental Status Sepsis Action Taken by Nursing 08/24/23 20:21 08/24/23 20:30 08/24/23 20:30 Temperature Temperature Source Pulse Rate 69 Pulse Rate [Apical] Pulse Rate from SpO2 Sensor 69 Pulse Rhythm [Apical] Respiratory Rate 21 Respiratory Effort / Characteristics Respiratory Depth Respiratory Pattern Blood Pressure 133/67 130/64 Blood Pressure [Right Arm] Blood Pressure Mean 72 92 Blood Pressure Mean [Right Arm] Blood Pressure Position [Right Arm] Pulse Oximetry 94 Oxygen Delivery Method Sepsis Recent Fever Within 48 Hours Sepsis New/Unexplained Change in Mental Status Sepsis Action Taken by Nursing 08/24/23 20:30 08/24/23 20:30 08/24/23 20:44 Temperature Temperature Source Pulse Rate 69 Pulse Rate [Apical] Pulse Rate from SpO2 Sensor 69 Pulse Rhythm [Apical] Respiratory Rate 20 Respiratory Effort / Characteristics Respiratory Depth Respiratory Pattern Blood Pressure 133/67 158/63 H Blood Pressure [Right Arm] Blood Pressure Mean 72 98 Blood Pressure Mean [Right Arm] Blood Pressure Position [Right Arm] Pulse Oximetry 95 Oxygen Delivery Method Sepsis Recent Fever Within 48 Hours Sepsis New/Unexplained Change in Mental Status Sepsis Action Taken by Nursing 08/24/23 20:47 08/24/23 21:06 08/24/23 21:51 Temperature Temperature Source Pulse Rate 67 66 Pulse Rate [Apical] 71 Pulse Rate from SpO2 Sensor 67 66 Pulse Rhythm [Apical] Respiratory Rate 18 21 17 Respiratory Effort / Characteristics Respiratory Depth Respiratory Pattern Blood Pressure Blood Pressure [Right Arm] 158/63 H Blood Pressure Mean Blood Pressure Mean [Right Arm] 94 Blood Pressure Position [Right Arm] Pulse Oximetry 96 96 96 Oxygen Delivery Method Sepsis Recent Fever Within 48 Hours Sepsis New/Unexplained Change in Mental Status Sepsis Action Taken by Nursing 08/24/23 22:00 08/24/23 22:00 08/24/23 22:03 Temperature Temperature Source Pulse Rate 70 63 Pulse Rate [Apical] Pulse Rate from SpO2 Sensor 63 Pulse Rhythm [Apical] Respiratory Rate 16 Respiratory Effort / Characteristics Respiratory Depth Respiratory Pattern Blood Pressure 128/73 Blood Pressure [Right Arm] Blood Pressure Mean 100 Blood Pressure Mean [Right Arm] Blood Pressure Position [Right Arm] Pulse Oximetry 96 Oxygen Delivery Method Sepsis Recent Fever Within 48 Hours Sepsis New/Unexplained Change in Mental Status Sepsis Action Taken by [facility] Medications Current Medication List: was personally reviewed by me Laboratory Data Attestation: I reviewed the patient's lab results. 08/24/23 17:50 08/24/23 17:50 Lab Results 08/24/23 08/24/23 Range/Units 17:50 Unknown WBC 9.44 (4.8-10.8) K/ul RBC 3.80 L (4.20-5.40) M/uL Hgb 10.6 L (12.0-16.0) g/dl Hct 33.5 L (37.0-47.0) % MCV 88.2 (80.0-100.0) fL MCH 27.9 (25.0-34.0) pg MCHC 31.6 L (32.0-36.0) g/dL RDW Std Deviation 43.1 (36.4-46.3) fL RDW Coeff of Sunitha 13.5 (11.5-14.5) % Plt Count 239 (130-400) K/uL MPV 10.4 (9.4-12.4) fL Immature Gran % (Auto) 0.3 % Neut % (Auto) 76.6 % Lymph % (Auto) 12.7 % [place] % (Auto) 6.6 % Eos % (Auto) 3.4 % Baso % (Auto) 0.4 % Neut # (Auto) 7.23 H (1.40-6.50) K/uL Lymph # (Auto) 1.20 (1.20-3.40) K/uL [place] # (Auto) 0.62 H (0.11-0.59) K/uL Eos # (Auto) 0.32 (0.00-0.50) K/uL Baso # (Auto) 0.04 (0.00-0.20) K/uL Immature Gran # (Auto) 0.03 (0.01-0.20) K/uL PT 10.9 (9.0-12.0) Seconds INR 1.0 (0.9-1.1) APTT 27 (21-31) Seconds PTT Ratio 1.0 Sodium 140 (136-145) mmol/L Potassium 4.0 (3.5-5.1) mmol/L Chloride 106 (98-107) mmol/L Carbon Dioxide 25 (21-32) mmol/L Anion Gap 9 (3-11) BUN 22 (6-23) mg/dl Creatinine 0.92 (0.6-1.2) mg/dl Est Cr Clr Drug Dosing 47.0 ml/min Est GFR ( Amer) 68.2 ml/min Est GFR (Non-Af Amer) 58.8 ml/min BUN/Creatinine Ratio 23.9 H (10-20) Glucose 215 H (70-99(Fasting)) mg/dl Calcium 9.3 (8.6-10.3) mg/dl Total Bilirubin 0.3 (0.2-1.0) mg/dl AST 6 L (13-39) U/L ALT 7 (7-52) U/L Alkaline Phosphatase 57 (34-104) U/L Total Protein 7.0 (6.0-8.3) gm/dl Albumin 4.2 (3.4-5.0) gm/dl Globulin 2.8 (2.5-4.0) gm/dl Albumin/Globulin Ratio 1.5 (0.9-2) Lipase 30 (11-82) U/L Urine Color Red Urine Appearance Turbid A (Clear) Urine pH 6.5 (4.5-7.5) Ur Specific [place] 1.025 (1.000-1.030) Urine Protein 3+ H (Negative) Urine Glucose (UA) Negative (Negative) Urine Ketones Negative (Negative) Urine Blood 3+ H (Negative) Urine Nitrite Negative (Negative) Urine Bilirubin Negative (Negative) Urine Urobilinogen Negative (Negative) Ur Leukocyte Esterase 1+ H (Negative) Urine RBC >20 H (0-2) /hpf Urine WBC >50 H (0-5) /hpf Ur Epithelial Cells 3-5 H (0-2) /hpf Urine Bacteria 2+ H (None Seen) Administered Medications Discontinued Medications Sodium Chloride (Nss) 500 mls @ 999 mls/hr IV .Q31M ONE Stop: 08/24/23 18:37 Last Infusion: 08/24/23 19:00 Dose: Infused Documented By: Admin: 08/24/23 18:15 Dose: 999 mls/hr Documented By: Romario Cefepime HCl (Maxipime) 2,000 mg in 20 mls @ 5 mls/min IV NOW STA; Protocol Stop: 08/24/23 20:31 Last Admin: 08/24/23 20:43 Dose: 5 mls/min Documented By: WILMAR Ioversol (Optiray 320 100ml) 93 ml IV ONCE ONE Stop: 08/24/23 19:21 Last Admin: 08/24/23 19:20 Dose: 93 ml Documented By: Sand 9 Imaging Data Attestation: I personally reviewed and interpreted this imaging study as follows: My Impression: CT of the abdomen and pelvis was obtained in the emergency department. My interpretation is no free air or definite obstruction, final report below. Radiologist's Impression: Abdomen/Pelvis CT 08/24/23 18:07 Exam(s): CT ABDOMEN + PELVIS With Contrast IV Amt: 93 ml opti 320 EXAM: CT Abdomen and Pelvis With Intravenous Contrast CLINICAL HISTORY: Lower Abdominal Pain. TECHNIQUE: Axial computed tomography images of the abdomen and pelvis with intravenous contrast. CTDI is 24 mGy and DLP is 1117 mGy-cm. Automated exposure control was utilized for the study. A dose lowering technique was utilized adhering to the principles of ALARA. CONTRAST: Patient received 93 ml opti 320 of IV contrast COMPARISON: CT abdomen and pelvis 08/11/2023 FINDINGS: Lung bases: Unremarkable. No mass. No consolidation. ABDOMEN: Liver: Unremarkable. No mass. Gallbladder and bile ducts: Cholecystectomy. Prominence of the common bile duct likely represents reservoir effect from the prior cholecystectomy. Pancreas: Unremarkable. No mass. No ductal dilation. Spleen: Unremarkable. No splenomegaly. Adrenals: Unremarkable. No mass. Kidneys and ureters: Unremarkable. No solid mass. No hydronephrosis. Stomach and bowel: Unremarkable. No obstruction. No mucosal thickening. PELVIS: Appendix: No findings to suggest acute appendicitis. Bladder: Thickening of the bladder wall with debris within the bladder. A Kemp catheter is noted. Reproductive: Redemonstrated 4.5 cm right adnexal cystic lesion is noted. ABDOMEN and PELVIS: Intraperitoneal space: Nonspecific free fluid in the pelvis. No free air. Bones/joints: There are degenerative changes of the spine. No acute fracture. No dislocation. Soft tissues: Small bilateral fat-containing inguinal hernias. Vasculature: Mild atherosclerosis. No abdominal aortic aneurysm. Lymph nodes: Unremarkable. No enlarged lymph nodes. IMPRESSION: 1. Thickening of the bladder wall with debris within the bladder. This could represent blood products or malignancy. 2. Redemonstrated 4.5 cm right adnexal cystic lesion is noted. 3. Nonspecific free fluid in the pelvis. Electronically signed by: Marcy Phillips MD 08/24/23 21:21 PM Discharge Plan Visit Data Chief Complaint: Bleeding Stated Complaint: BLOOD CLOTS, BLEEDING ED Provider: Bradley Brown Discharge Problem: Hematuria, Urinary tract infection, Anemia Patient Disposition: Being Evaluated by Hospitalist Forms Stand Alone Forms: My [facility] [employer] Prescriptions Prescriptions: No Action metformin 500 mg tablet 500 mg PO BIDM 30 Days Qty: 60 11RF (DME) pen needle, diabetic [Sure-Fine Pen [place]] 31 gauge x 3/16" needle See Rx Instructions .Route Qty: 100 3RF Rx Instructions: As directed inject once daily Dx E11.9 Saftey tips (DME) Novofine Autocover 30 gauge x 1/3" needle See Rx Instructions .Route Qty: 100 4RF Rx Instructions: DAILY E11.9 (DME) lancets [Safety Seal Lancets] 30 gauge misc See Rx Instructions .Route Qty: 100 4RF Rx Instructions: TID R73.9 primidone 50 mg tablet 100 mg PO BID Qty: 120 11RF Rx Instructions: 100 mg PO = 2 tablets in the morning and 2 tablets in the evening.; insulin glargine [Lantus Solostar U-100 Insulin] 100 unit/mL (3 mL) insulin pen 28 unit subcut QPM Qty: 15 3RF (DME) OneTouch Ultra Test Strip See Rx Instructions .Route Qty: 100 3RF Rx Instructions: As directed rosuvastatin 20 mg tablet 20 mg PO HS Qty: 30 11RF pantoprazole 40 mg tablet,delayed release (DR/EC) 40 mg PO QAM Qty: 30 11RF oxybutynin chloride 5 mg tablet 5 mg PO Q8H PRN (Reason: bladder spasms) Qty: 20 3RF carbidopa-levodopa 25-100 mg tablet 2 tab PO TID 30 Days Qty: 180 6RF phenazopyridine [Pyridium] 100 mg tablet 100 mg PO TID Qty: 30 0RF Rx Instructions: take for 10 days ordered august 24, 2023 phenazopyridine [Pyridium] 200 mg tablet 200 mg PO Q8H PRN (Reason: pain) Qty: 10 0RF Rx Instructions: Do not take for more than 3 days consecutively lidocaine 4 % adhesive patch,medicated 1 patch topical DAILY PRN (Reason: Pain) Rx Instructions: on 12 hours off 12 hours....right hip ondansetron HCl 4 mg tablet 4 mg PO Q8H PRN (Reason: nausea and vomiting) Qty: 20 2RF acetaminophen 325 mg tablet 650 mg PO Q4H MDD 3G PRN (Reason: Fever Or Pain) Hold Instructions: Resume on 01/11/23. resume after finishing fluconazole Rx Instructions: use for mild/mod pain or Temp>100 cranberry 500 mg capsule 500 mg PO QAM methenamine hippurate 1 gram tablet 1 g PO BID ascorbic acid (vitamin C) 500 mg capsule 500 mg PO BID diclofenac sodium 1 % gel 2 g topical QID PRN (Reason: pain) Qty: 100 4RF Rx Instructions: can apply to affected hip, knee and L shoulder polyethylene glycol 3350 [Miralax] 17 gram/dose powder 17 g PO DAILY PRN (Reason: constipation) Qty: 119 0RF Rx Instructions: use if no BM after 3 days Pataday Once Daily Relief 0.7 % drops 1 drp ophthalmic (eye) QAM cyanocobalamin (vitamin B-12) [Vitamin B-12] 1,000 mcg tablet 1,000 mcg PO QAM cholecalciferol (vitamin D3) [Vitamin D3] 2,000 unit tablet 2,000 unit PO QAM multivitamin [Daily-Devin] Tablet 1 tab PO QAM fluticasone propionate 50 mcg/actuation spray,suspension 1 spray intranasal DAILY fluconazole 200 mg tablet 200 mg PO DAILY Rx Instructions: start 08/15/23 take for 14 days diclofenac sodium 1 % gel 2 g TOPICAL QID PRN (Reason: Pain) Rx Instructions: apply to coccyx Pataday Once Daily Relief 0.7 % Drops 1 drp OPHTHALMIC (EYE) QPM PRN (Reason: allergies) dextromethorphan-guaifenesin [Tussin DM] 10-100 mg/5 mL Syrup 10 ml PO Q8 PRN (Reason: Cough) famotidine 20 mg tablet 20 mg PO 1999 Rx Instructions: 20 mg orally pm at 8 pm; escitalopram oxalate 20 mg tablet 20 mg PO QAM tamsulosin 0.4 mg capsule 0.4 mg PO HS Qty: 30 0RF Referrals Referrals: Remedios Medrano CRNP [Primary Care Provider] - Discharge Problem: Hematuria Qualifiers: Hematuria type: gross Qualified Code(s): R31.0 - Gross hematuria Urinary tract infection Qualifiers: Urinary tract infection type: site unspecified Hematuria presence: with hematuria Qualified Code(s): N39.0 - Urinary tract infection, site not specified ; R31.9 - Hematuria, unspecified Anemia Qualifiers: Anemia type: unspecified type Qualified Code(s): D64.9 - Anemia, unspecified
[2023-08-24] MEDS: SODIUM CHLORIDE 0.9% 500 ML IV ONE (18:15)
[2023-08-24 18:21] LABS: Basophils # (auto) 0.04 K/uL (0.00-0.20); Basophils % (auto) 0.4 %; Eosinophils # (auto) 0.32 K/uL (0.00-0.50); Eosinophils % (auto) 3.4 %; Hematocrit (blood only) 33.5 % (37.0-47.0); Hemoglobin 10.6 g/dl (12.0-16.0); Immature Granulocytes # (auto) 0.03 K/uL (0.01-0.20); Immature Granulocytes % (auto) 0.3 %; Lymphocytes % (auto) 12.7 %; Mean Corpuscular Hemoglobin 27.9 pg (25.0-34.0); Mean Corpuscular Hgb Conc 31.6 g/dL (32.0-36.0); Mean Corpuscular Volume 88.2 fL (80.0-100.0); Mean Platelet Volume 10.4 fL (9.4-12.4); Monocytes # (auto) 0.62 K/uL (0.11-0.59); Monocytes % (auto) 6.6 %; Neutrophils # (auto) 7.23 K/uL (1.40-6.50); Neutrophils % (auto) 76.6 %; Platelet Count 239 K/uL (130-400); RDW Coefficient of Variation 13.5 % (11.5-14.5); RDW Standard Deviation 43.1 fL (36.4-46.3); White Blood Count 9.44 K/ul (4.8-10.8)
[2023-08-24 18:31] LABS: Albumin Globulin Ratio 1.5 (0.9-2); Albumin Level 4.2 gm/dl (3.4-5.0); BUN Creatinine Ratio 23.9 (10-20); Bilirubin,Total 0.3 mg/dl (0.2-1.0); Calcium 9.3 mg/dl (8.6-10.3); Est GFR (African American) 68.2 ml/min; Est GFR (Non-African American) 58.8 ml/min; Globulin 2.8 gm/dl (2.5-4.0)
[2023-08-24 18:57] LABS: Partial Thromboplastin Time 27 Seconds (21-31); Prothrombin Time 10.9 Seconds (9.0-12.0)
[2023-08-24] MEDS: OPTIRAY 320 100ml IV ONE (19:20)
[2023-08-24 20:04] LABS: Appearance Urine Turbid (Clear); Bilirubin Urine Negative (Negative); Blood Urine 3+ (Negative); Color Urine Red; Glucose Urine UA Negative (Negative); Ketones Urine Negative (Negative); Leukocyte Esterase Urine 1+ (Negative); Nitrite Urine Negative (Negative); Protein Urine 3+ (Negative); Specific Gravity Urine 1.025 (1.000-1.030); Urobilinogen Urine Negative (Negative); pH Urine 6.5 (4.5-7.5)
[2023-08-24 20:12] LABS: RBC Urine >20 /hpf (0-2); WBC Urine >50 /hpf (0-5)
[2023-08-24 20:14] LABS: Bacteria Urine 2+ (None Seen)
[2023-08-24] MEDS: CEFEPIME 2,000 MG/20 ML VIAL IV STA (20:43)
--- NOTE | 2023-08-24 21:22 | CT Scan Report ---
Exam(s): CT ABDOMEN + PELVIS With Contrast IV Amt: 93 ml opti 320 EXAM: CT Abdomen and Pelvis With Intravenous Contrast CLINICAL HISTORY: Lower Abdominal Pain. TECHNIQUE: Axial computed tomography images of the abdomen and pelvis with intravenous contrast. CTDI is 24 mGy and DLP is 1117 mGy-cm. Automated exposure control was utilized for the study. A dose lowering technique was utilized adhering to the principles of ALARA. CONTRAST: Patient received 93 ml opti 320 of IV contrast COMPARISON: CT abdomen and pelvis 08/11/2023 FINDINGS: Lung bases: Unremarkable. No mass. No consolidation. ABDOMEN: Liver: Unremarkable. No mass. Gallbladder and bile ducts: Cholecystectomy. Prominence of the common bile duct likely represents reservoir effect from the prior cholecystectomy. Pancreas: Unremarkable. No mass. No ductal dilation. Spleen: Unremarkable. No splenomegaly. Adrenals: Unremarkable. No mass. Kidneys and ureters: Unremarkable. No solid mass. No hydronephrosis. Stomach and bowel: Unremarkable. No obstruction. No mucosal thickening. PELVIS: Appendix: No findings to suggest acute appendicitis. Bladder: Thickening of the bladder wall with debris within the bladder. A Kemp catheter is noted. Reproductive: Redemonstrated 4.5 cm right adnexal cystic lesion is noted. ABDOMEN and PELVIS: Intraperitoneal space: Nonspecific free fluid in the pelvis. No free air. Bones/joints: There are degenerative changes of the spine. No acute fracture. No dislocation. Soft tissues: Small bilateral fat-containing inguinal hernias. Vasculature: Mild atherosclerosis. No abdominal aortic aneurysm. Lymph nodes: Unremarkable. No enlarged lymph nodes. IMPRESSION: 1. Thickening of the bladder wall with debris within the bladder. This could represent blood products or malignancy. 2. Redemonstrated 4.5 cm right adnexal cystic lesion is noted. 3. Nonspecific free fluid in the pelvis. Electronically signed by: Marcy Phillips MD 08/24/23 21:21 PM
--- NOTE | 2023-08-24 22:57 | History & Physical Report ---
Date of Service August 24, 2023 Assessment & Plan (1) Hematuria: Plan: 78yo female with ongoing hematuria with clots. Patient with recent TURBT and fulguration performed on 08/09/23. She had a Kemp in place. -Monitor I/Os -Bladder scan and straight cath as needed -Kemp irrigation as needed -Monitor CBC -Consider Urology consultation -Continue Oxybutynin -Continue Flomax (2) Acute UTI: Plan: Patient with history of UTI - Patino-sensitive Pseudomonas as well as charles glabrata. She has been on Fluconazole. UA and culture sent in Urology office -Cefepime -Continue Fluconazole -Await culture results from recent sample -Continue Pyridium -Continue Tylenol PRN (3) Diabetes: Plan: Chronic -Lantus 10u BID -ISS -Goal BSG 110 - 140 Plan Depression -Continue Escitalopram GERD -Continue Pepcid and Protonix Parkinsonism -Continue home Carbidopa-Levodopa F/E/N - LR at 100mL/hr, electrolytes WNL, CC diet as tolerated Ppx - SCDs Code - Full per discussion with patient Dispo - Admit to medical History of Present Illness Chief Complaint: hematuria Primary Care Provider: KEILA Lopez Nadia Johnson is an 78yo female presenting from [facility] with report of hematuria. Patient's family at bedside and provides majority of history due to patient's underlying dementia. Patient was recently seen by Urology on 08/09/23 with history of incontinence and bladder ulcer. She had a cystoscopy performed with urethral dilation and TURBT as well as fulguration of bladder lesions. Pathology revealed ulcerated, inflamed urothelial mucosa which was negative for malignancy. Tissue heavily inflamed with abundant eosinophils. Patient was then discharged home with a catheter in place and instructions to maintain Kemp for 3-4 weeks. Patient had some difficulty with the Kemp catheter and continued to pull on it. She was seen in the ER on 08/11/23 with concern for Kemp being pulled out of place. Her Kemp was irrigated and proper placement was confirmed and she was ultimately discharged home from the ER. She was seen in the Urology office on 08/13/23 for post-void residual assessment following removal of Kemp. Plan to leave the catheter out for now. Over the last week patient developed worsening hematuria. She has been passing david blood with clots. The hematuria worsened over the weekend. Patient was seen in the Urology clinic earlier today and had a urine sample collected by straight cath and had a PVR study performed which was acceptable. She returned to [facility] and continued to have hematuria with passage of clots. Patient passed a large amount of clot around 16:00 and patient's daughter was contacted. She reached out to Urology again and was instructed to come to the ER. In the ER patient afebrile, HD stable No complaints Patient urinated in bedside commode during my encounter - hematuria present, seemingly improved from prior pictures Allergies Allergy/AdvReac Type Severity Reaction Status Date / Time levetiracetam Allergy Intermediate Rash Verified 08/09/23 07:05 adhesive tape Allergy Mild Rash Verified 08/09/23 07:05 naproxen Allergy Mild RASH Verified 08/09/23 07:05 morphine Allergy Unknown Unknown Verified 08/09/23 07:05 sulfamethoxazole AdvReac Mild Nausea Verified 08/09/23 07:05 [From Bactrim] trimethoprim [From Bactrim] AdvReac Mild Nausea Verified 08/09/23 07:05 Home Medications Medication Instructions Recorded Confirmed Type cholecalciferol (vitamin D3) 50 2,000 unit PO QAM 09/08/18 08/24/23 History mcg (2,000 unit) tablet (Vitamin D3) cyanocobalamin (vitamin B-12) 1,000 mcg PO QAM 09/08/18 08/24/23 History 1,000 mcg tablet (Vitamin B-12) acetaminophen 325 mg tablet 650 mg PO Q4H PRN Fever Or Pain 05/13/21 08/24/23 History lidocaine 4 % topical patch 1 patch topical DAILY PRN Pain 06/03/21 08/24/23 History metformin 500 mg tablet 500 mg PO BIDM 30 days #60 tabs 07/23/22 08/24/23 Rx pen needle, diabetic 31 gauge x #100 ea 08/17/22 08/24/23 Rx 3/16" (Sure-Fine Pen [place]) multivitamin (Daily-Devin tablet) 1 tab PO QAM 09/03/22 08/24/23 History polyethylene glycol 3350 17 17 g PO DAILY PRN constipation 01/29/23 08/24/23 Rx gram/dose oral powder (Miralax) #119 grams ondansetron HCl 4 mg tablet 4 mg PO Q8H PRN nausea and 03/17/23 08/24/23 Rx vomiting #20 tabs lancets 30 gauge (Safety Seal #100 ea 05/27/23 08/24/23 Rx Lancets) pen needle, diabetic, safety 30 #100 ea 05/27/23 08/24/23 Rx gauge x 1/3" (Novofine Autocover) primidone 50 mg tablet 100 mg (2 x 50 mg) PO BID #120 tabs 05/31/23 08/24/23 Rx insulin glargine 100 unit/mL (3 28 unit (0.28 mL) subcut QPM #15 mL 06/11/23 08/24/23 Rx mL) subcutaneous pen (Lantus Solostar U-100 Insulin) ascorbic acid (vitamin C) 500 mg 500 mg PO BID 06/29/23 08/24/23 History capsule cranberry 500 mg capsule 500 mg PO QAM 06/29/23 08/24/23 History diclofenac sodium 1 % topical gel 2 g topical QID PRN pain #100 grams 06/29/23 08/24/23 Rx methenamine hippurate 1 gram tablet 1 g PO BID 06/29/23 08/24/23 History olopatadine 0.7 % eye drops 1 drp ophthalmic (eye) QAM 06/29/23 08/24/23 History (Pataday Once Daily Relief) blood sugar diagnostic (OneTouch #100 ea 06/30/23 08/24/23 Rx Ultra Test strips) pantoprazole 40 mg tablet,delayed 40 mg PO QAM #30 tabs 07/26/23 08/24/23 Rx release rosuvastatin 20 mg tablet 20 mg PO HS #30 tabs 07/26/23 08/24/23 Rx escitalopram oxalate 20 mg tablet 20 mg PO QAM 07/30/23 08/24/23 History famotidine 20 mg tablet 20 mg PO 199907/30/23 08/24/23 History tamsulosin 0.4 mg capsule 0.4 mg PO HS #30 caps 08/09/23 08/24/23 Rx oxybutynin chloride 5 mg tablet 5 mg PO Q8H PRN bladder spasms #20 08/19/23 08/24/23 Rx tabs carbidopa 25 mg-levodopa 100 mg 2 tab PO TID 30 days #180 tabs 08/20/23 08/24/23 Rx tablet dextromethorphan-guaifenesin 10 10 ml PO Q8 PRN Cough 08/24/23 08/24/23 History mg-100 mg/5 mL oral syrup (Tussin DM) diclofenac sodium 1 % topical gel 2 g topical QID PRN Pain 08/24/23 08/24/23 History fluconazole 200 mg tablet 200 mg PO DAILY 08/24/23 08/24/23 History fluticasone propionate 50 1 spray intranasal DAILY 08/24/23 08/24/23 History mcg/actuation nasal spray,suspension olopatadine 0.7 % eye drops 1 drp ophthalmic (eye) QPM PRN 08/24/23 08/24/23 History (Pataday Once Daily Relief) allergies phenazopyridine 100 mg tablet 100 mg PO TID #30 tabs 08/24/23 08/24/23 Rx (Pyridium) phenazopyridine 200 mg tablet 200 mg PO Q8H PRN pain #10 tabs 08/24/23 08/24/23 Rx (Pyridium) Past Med/Surg History Problem List (Updated 08/24/23 @ 23:38 by Livia Rider DO) Diabetes Anemia (Acute) Urinary tract infection (Acute) Hematuria (Acute) Acute UTI (Acute) Cyst of right ovary (Acute) Abdominal pain (Acute) Ground glass opacity present on imaging of lung Thyroid nodule Encounter for pre-operative examination Incontinence Bladder ulcer Seizure-like activity 02/[address] 02/2023- thyroid nodule- recommend thyroid u/s; pulmonary nodules- recommend six month CT follow up (PCP aware per records) Murmur Hypomagnesemia (Acute) Charles cystitis Iliotibial band syndrome, right leg Trochanteric bursitis, right hip Abdominal pain Right hip pain Ovarian cyst, right Left shoulder pain Orthostatic hypotension Recurrent infections Ataxia Osteopenia Parkinsonism Pelvic pain DM type 2 (diabetes mellitus, type 2) Varicose veins of legs Vertigo (Acute) Memory loss (Chronic) Essential tremor (07/28/13) HTN, goal below 140/90 (Chronic 03/30/17) Vitamin D deficiency (Acute) Trigeminal neuralgia (Acute) Mixed hyperlipidemia (Chronic) Insomnia (Acute) Dysphagia (Acute) No dysphagia symptoms per 06/29/23 PCP records Anxiety (Chronic) Allergic rhinitis (Acute) Depression COPD (chronic obstructive pulmonary disease) (Chronic) IBS (irritable bowel syndrome) (Chronic) Tubular adenoma of colon Medical History Resides in care home facility all med hx obtained from [facility] Medical Record History of vertigo Varicose veins of both lower extremities History of trigeminal neuralgia Seizure-like activity Episode of syncope/near syncope- admitted to [facility] 02/2023 (diagnosed with UTI and acute metabolic encephalopathy) EEG 02/2023 WNL Parkinsonism Osteopenia History of orthostatic hypotension Hyperlipemia Memory loss Cognitive changes felt related to age per neurology Iliotibial band syndrome affecting right lower leg Insomnia Incontinence IBS (irritable bowel syndrome) Hypertension Essential tremor s/p bilateral DBS placement 2013 R>L hand per neuro records Diabetes mellitus, type 2 Heart murmur No significant heart valve disease per 02/2023 ECHO Depression COPD (chronic obstructive pulmonary disease) ? per [place] record, pt not on any oxygen or inhalers Bladder ulcer Following with urology Ataxia Per daughter in law- patient can usually ambulate with walker- occ will need wheelchair Anxiety History of falling Coccygeal fracture hx of Nausea Constipation Recurrent urinary tract infection Follows with ID and urology Sensorineural hearing loss (SNHL) of both ears GERD (gastroesophageal reflux disease) resolved, off PPI Surgical History Status post tubal ligation S/P sinus surgery S/P cholecystectomy S/P deep brain stimulator placement (08/20/16) Family History Father Cancer Mother Depression Hypertension Stroke Grandmother Breast cancer Mother Myocardial infarction Other Family history unknown Denies family history of Ovarian cancer Prostate cancer Colorectal cancer Social History Smoking Status: Never smoker Second Hand Exposure: No; Preferred Language: Kazakh Communication Ability: Effective General Warehouse Associate Required: No Beliefs That Will Affect Care: None marital status: / Current Living Situation: [facility] Current Living Situation Comment: resides at [facility] current occupational status: retired How many Children do You have: 3 Feels Safe at Home: Yes Childhood Exposure to Second-Hand Smoke: Yes Diet: regular caffeine: Yes Dental Care, Regularly: No Physical Activity Frequency: Does not Exercise Seatbelt Use: always Sunscreen Use: No Assistive Devices: Wheelchair Review of Systems Review of Systems: All systems reviewed & are unremarkable except as noted in HPI & below Physical Exam Physical Exam: General: elderly female patient, pleasantly demented, follows commands Skin: warm, dry, intact, no rashes or lesions HEENT: NC/AT, PERRL, EOMI, anicteric sclera, conjunctiva without injection, external ear normal to inspection and nontender, nares patent, moist mucus membranes, dentition intact, no oropharyngeal lesions, neck supple, trachea midline, no LAD, no thyromegaly, no JVD Heart: +S1/S2, regular, no m/r/g Lungs: equal air entry bilaterally, no rales/rhonchi/wheezes Abd: +BS, soft, NT/ND, no masses/organomegaly/ascites, hematuria in commode with small amount of clot Ext: warm, 2+ pulses in UE/LE bilaterally, no clubbing/cyanosis or edema Neuro: nonfocal, speech intact, no facial droop, moving all extremities on command with equal strength 5/5 Results & Data Results & Data Vital Signs (Past 12 Hours) Vital Signs Temp Pulse Pulse Resp BP BP Pulse Ox 08/24/23 22:03 63 16 96 08/24/23 22:00 128/73 08/24/23 22:00 70 08/24/23 21:51 66 17 96 08/24/23 21:06 67 21 96 08/24/23 20:47 71 18 158/63 H 96 08/24/23 20:44 158/63 H 08/24/23 20:30 69 20 95 08/24/23 20:30 133/67 08/24/23 20:30 130/64 08/24/23 20:30 133/67 08/24/23 20:21 69 21 94 08/24/23 20:00 130/64 08/24/23 19:45 68 18 97 08/24/23 19:30 142/77 H 08/24/23 19:30 142/77 H 08/24/23 19:30 69 16 142/77 H 97 08/24/23 19:06 68 15 95 08/24/23 19:00 66 18 95 08/24/23 19:00 121/61 08/24/23 19:00 121/61 08/24/23 19:00 121/61 08/24/23 18:14 67 20 95 08/24/23 18:12 65 20 122/57 L 94 08/24/23 18:12 94 08/24/23 18:10 63 08/24/23 17:36 36.5 C 69 20 105/63 93 O2 Del Method 08/24/23 22:03 08/24/23 22:00 08/24/23 22:00 08/24/23 21:51 08/24/23 21:06 08/24/23 20:47 08/24/23 20:44 08/24/23 20:30 08/24/23 20:30 08/24/23 20:30 08/24/23 20:30 08/24/23 20:21 08/24/23 20:00 08/24/23 19:45 08/24/23 19:30 08/24/23 19:30 08/24/23 19:30 Room Air 08/24/23 19:06 08/24/23 19:00 08/24/23 19:00 08/24/23 19:00 08/24/23 19:00 08/24/23 18:14 Room Air 08/24/23 18:12 Room Air 08/24/23 18:12 Room Air 08/24/23 18:10 08/24/23 17:36 Room Air Laboratory Results Laboratory Results WBC 9.44 K/ul (4.8-10.8) 08/24/23 17:50 RBC 3.80 M/uL (4.20-5.40) L 08/24/23 17:50 Hgb 10.6 g/dl (12.0-16.0) L 08/24/23 17:50 Hct 33.5 % (37.0-47.0) L 08/24/23 17:50 MCV 88.2 fL (80.0-100.0) 08/24/23 17:50 MCH 27.9 pg (25.0-34.0) 08/24/23 17:50 MCHC 31.6 g/dL (32.0-36.0) L 08/24/23 17:50 RDW Std Deviation 43.1 fL (36.4-46.3) 08/24/23 17:50 RDW Coeff of Sunitha 13.5 % (11.5-14.5) 08/24/23 17:50 Plt Count 239 K/uL (130-400) 08/24/23 17:50 MPV 10.4 fL (9.4-12.4) 08/24/23 17:50 Immature Gran % (Auto) 0.3 % 08/24/23 17:50 Neut % (Auto) 76.6 % 08/24/23 17:50 Lymph % (Auto) 12.7 % 08/24/23 17:50 Tompkins % (Auto) 6.6 % 08/24/23 17:50 Eos % (Auto) 3.4 % 08/24/23 17:50 Baso % (Auto) 0.4 % 08/24/23 17:50 Neut # (Auto) 7.23 K/uL (1.40-6.50) H 08/24/23 17:50 Lymph # (Auto) 1.20 K/uL (1.20-3.40) 08/24/23 17:50 Tompkins # (Auto) 0.62 K/uL (0.11-0.59) H 08/24/23 17:50 Eos # (Auto) 0.32 K/uL (0.00-0.50) 08/24/23 17:50 Baso # (Auto) 0.04 K/uL (0.00-0.20) 08/24/23 17:50 Immature Gran # (Auto) 0.03 K/uL (0.01-0.20) 08/24/23 17:50 PT 10.9 Seconds (9.0-12.0) 08/24/23 17:50 INR 1.0 (0.9-1.1) 08/24/23 17:50 APTT 27 Seconds (21-31) 08/24/23 17:50 PTT Ratio 1.0 08/24/23 17:50 Sodium 140 mmol/L (136-145) 08/24/23 17:50 Potassium 4.0 mmol/L (3.5-5.1) 08/24/23 17:50 Chloride 106 mmol/L (98-107) 08/24/23 17:50 Carbon Dioxide 25 mmol/L (21-32) 08/24/23 17:50 Anion Gap 9 (3-11) 08/24/23 17:50 BUN 22 mg/dl (6-23) 08/24/23 17:50 Creatinine 0.92 mg/dl (0.6-1.2) 08/24/23 17:50 Est Cr Clr Drug Dosing 47.0 ml/min 08/24/23 17:50 Est GFR ( Amer) 68.2 ml/min 08/24/23 17:50 Est GFR (Non-Af Amer) 58.8 ml/min 08/24/23 17:50 BUN/Creatinine Ratio 23.9 (10-20) H 08/24/23 17:50 Glucose 215 mg/dl (70-99(Fasting)) H 08/24/23 17:50 Calcium 9.3 mg/dl (8.6-10.3) 08/24/23 17:50 Total Bilirubin 0.3 mg/dl (0.2-1.0) 08/24/23 17:50 AST 6 U/L (13-39) L 08/24/23 17:50 ALT 7 U/L (7-52) 08/24/23 17:50 Alkaline Phosphatase 57 U/L (34-104) 08/24/23 17:50 Total Protein 7.0 gm/dl (6.0-8.3) 08/24/23 17:50 Albumin 4.2 gm/dl (3.4-5.0) 08/24/23 17:50 Globulin 2.8 gm/dl (2.5-4.0) 08/24/23 17:50 Albumin/Globulin Ratio 1.5 (0.9-2) 08/24/23 17:50 Lipase 30 U/L (11-82) 08/24/23 17:50 Urine Color Red 08/24/23 Unknown Urine Appearance Turbid (Clear) A 08/24/23 Unknown Urine pH 6.5 (4.5-7.5) 08/24/23 Unknown Ur Specific Emery 1.025 (1.000-1.030) 08/24/23 Unknown Urine Protein 3+ (Negative) H 08/24/23 Unknown Urine Glucose (UA) Negative (Negative) 08/24/23 Unknown Urine Ketones Negative (Negative) 08/24/23 Unknown Urine Blood 3+ (Negative) H 08/24/23 Unknown Urine Nitrite Negative (Negative) 08/24/23 Unknown Urine Bilirubin Negative (Negative) 08/24/23 Unknown Urine Urobilinogen Negative (Negative) 08/24/23 Unknown Ur Leukocyte Esterase 1+ (Negative) H 08/24/23 Unknown Urine RBC >20 /hpf (0-2) H 08/24/23 Unknown Urine WBC >50 /hpf (0-5) H 08/24/23 Unknown Ur Epithelial Cells 3-5 /hpf (0-2) H 08/24/23 Unknown Urine Bacteria 2+ (None Seen) H 08/24/23 Unknown Impressions Abdomen/Pelvis CT 08/24/23 18:07 Exam(s): CT ABDOMEN + PELVIS With Contrast IV Amt: 93 ml opti 320 EXAM: CT Abdomen and Pelvis With Intravenous Contrast CLINICAL HISTORY: Lower Abdominal Pain. TECHNIQUE: Axial computed tomography images of the abdomen and pelvis with intravenous contrast. CTDI is 24 mGy and DLP is 1117 mGy-cm. Automated exposure control was utilized for the study. A dose lowering technique was utilized adhering to the principles of ALARA. CONTRAST: Patient received 93 ml opti 320 of IV contrast COMPARISON: CT abdomen and pelvis 08/11/2023 FINDINGS: Lung bases: Unremarkable. No mass. No consolidation. ABDOMEN: Liver: Unremarkable. No mass. Gallbladder and bile ducts: Cholecystectomy. Prominence of the common bile duct likely represents reservoir effect from the prior cholecystectomy. Pancreas: Unremarkable. No mass. No ductal dilation. Spleen: Unremarkable. No splenomegaly. Adrenals: Unremarkable. No mass. Kidneys and ureters: Unremarkable. No solid mass. No hydronephrosis. Stomach and bowel: Unremarkable. No obstruction. No mucosal thickening. PELVIS: Appendix: No findings to suggest acute appendicitis. Bladder: Thickening of the bladder wall with debris within the bladder. A Kemp catheter is noted. Reproductive: Redemonstrated 4.5 cm right adnexal cystic lesion is noted. ABDOMEN and PELVIS: Intraperitoneal space: Nonspecific free fluid in the pelvis. No free air. Bones/joints: There are degenerative changes of the spine. No acute fracture. No dislocation. Soft tissues: Small bilateral fat-containing inguinal hernias. Vasculature: Mild atherosclerosis. No abdominal aortic aneurysm. Lymph nodes: Unremarkable. No enlarged lymph nodes. IMPRESSION: 1. Thickening of the bladder wall with debris within the bladder. This could represent blood products or malignancy. 2. Redemonstrated 4.5 cm right adnexal cystic lesion is noted. 3. Nonspecific free fluid in the pelvis. Electronically signed by: Marcy Phillips MD 08/24/23 21:21 PM PG Care Time/CCT Total # of Minutes Spent Total Time Spent with Patient: Total time spent is greater than 50% in coordination of care (as documented) at patient's floor/unit and/or counseling patient: Coding Level of Care Code 42711 INT INP/OBS CARE 2/55MIN Diagnoses Hematuria R31.0 Hematuria type: gross Acute UTI N39.0 Diabetes E11.9 (1) Hematuria Hematuria type: gross Qualified Code(s): R31.0 - Gross hematuria
[2023-08-25] MEDS ORDERED: GLUCAGON FOR INJ 1 MG VIAL SQ PRN (00:35)
[2023-08-25] MEDS ORDERED: CARBOHYDRATES FOR HYPOGLYCEMIA PO PRN (00:35)
[2023-08-25] MEDS ORDERED: GLUCOSE 40% GEL 15 GM TUBE PO PRN (00:35)
[2023-08-25] MEDS ORDERED: POLYETHYLENE (MIRALAX) 17 GM PACK PO PRN (00:35)
[2023-08-25] MEDS ORDERED: DICLOFENAC SOD 1% GEL 100 GM TUBE EXT PRN ×2 (00:35)
[2023-08-25] MEDS ORDERED: GLUCOSE 10 TAB/TUBE PO PRN (00:35)
[2023-08-25] MEDS ORDERED: DEXTROSE 50% 50 ML SYRINGE IV PRN (00:35)
[2023-08-25] MEDS ORDERED: ONDANSETRON INJ 2 MG/ML 2 ML VIAL IV PRN (00:35)
[2023-08-25] MEDS: LACTATED RINGER'S 1,000 ML IV SCH (01:13)
--- NOTE | 2023-08-25 08:09 | Hospitalist Progress Note ---
Date of Service August 25, 2023 Assessment & Plan (1) Hematuria: Plan: 78yo female with ongoing hematuria with clots. Patient with recent TURBT and fulguration performed on 08/09/23. She had a Kemp in place. urine culture is pinpoint growth re incubitating -Bladder scan and straight cath as needed -Kemp irrigation as needed -Consider Urology consultation if hematuria persists -Continue Oxybutynin -Continue Flomax (2) Acute UTI: Plan: Patient with history of UTI - Patino-sensitive Pseudomonas as well as charles glabrata. She has been on Fluconazole. UA and culture sent in Urology office -Cefepime -Continue Fluconazole -Await culture results from recent sample not resulted yet -Continue Pyridium -Continue Tylenol PRN (3) Diabetes: Plan: Chronic -Lantus 10u BID -ISS -Goal BSG 110 - 140 Plan Depression -Continue Escitalopram GERD -Continue Pepcid and Protonix Parkinsonism -Continue home Carbidopa-Levodopa Ppx - SCDs Admission and Anticipated Discharge Date Admission Date: August 24, 2023 Subjective pt is pleasantly confused, but does not retain any information family updated at the bedside Physical Exam Physical Exam: pt is without distress, she has an eye patch on her left eye abd is soft and non tender cardiac is regular Results & Data Results & Data Vital Signs (Past 12 Hours) Vital Signs Temp Pulse Pulse Pulse Resp BP BP 08/25/23 07:34 97.7 F 64 16 119/61 08/25/23 00:45 97.3 F L 66 20 148/75 H 08/24/23 22:03 63 16 08/24/23 22:00 128/73 08/24/23 22:00 70 08/24/23 21:51 66 17 08/24/23 21:06 67 21 08/24/23 20:47 71 18 158/63 H 08/24/23 20:44 158/63 H 08/24/23 20:30 69 20 08/24/23 20:30 133/67 08/24/23 20:30 130/64 08/24/23 20:30 133/67 08/24/23 20:21 69 21 Pulse Ox O2 Del Method 08/25/23 07:34 95 Room Air 08/25/23 00:45 96 Room Air 08/24/23 22:03 96 08/24/23 22:00 08/24/23 22:00 08/24/23 21:51 96 08/24/23 21:06 96 08/24/23 20:47 96 08/24/23 20:44 08/24/23 20:30 95 08/24/23 20:30 08/24/23 20:30 08/24/23 20:30 08/24/23 20:21 94 Laboratory Results review cbc review chemistry PG Care Time/CCT Total # of Minutes Spent Total Time Spent with Patient: Total time spent is greater than 50% in coordination of care (as documented) at patient's floor/unit and/or counseling patient: Coding Level of Care Code 18927 SUB INP/OBS CARE 2/35MIN Diagnoses Hematuria R31.0 Hematuria type: gross Acute UTI N39.0 Diabetes E11.9 (1) Hematuria Hematuria type: gross Qualified Code(s): R31.0 - Gross hematuria
[2023-08-25 08:12] LABS: Hematocrit (blood only) 31.2 % (37.0-47.0); Mean Corpuscular Hemoglobin 27.8 pg (25.0-34.0); Mean Corpuscular Hgb Conc 32.1 g/dL (32.0-36.0); Mean Corpuscular Volume 86.7 fL (80.0-100.0); Mean Platelet Volume 10.5 fL (9.4-12.4); Platelet Count 187 K/uL (130-400); RDW Coefficient of Variation 13.5 % (11.5-14.5); RDW Standard Deviation 41.7 fL (36.4-46.3); White Blood Count 6.83 K/ul (4.8-10.8)
[2023-08-25 08:38] LABS: BUN Creatinine Ratio 23.4 (10-20); Calcium 8.9 mg/dl (8.6-10.3); Creatinine Clr Calc Pharmacy 65.9 ml/min; Est GFR (African American) 97.7 ml/min; Est GFR (Non-African American) 84.3 ml/min
[2023-08-25] MEDS: oxyBUTYnin chloride 5 MG TAB PO PRN (08:52)
[2023-08-25] MEDS: FLUCONAZOLE 100 MG TAB PO SCH (08:52)
[2023-08-25] MEDS: FLUTICASONE PROPIONATE NA SPR 16 GM BTL SCH (08:53)
[2023-08-25] MEDS: ESCITALOPRAM OXALATE 20 MG TAB PO SCH (08:53)
[2023-08-25] MEDS: PANTOprazole 40 MG TAB PO SCH (08:53)
[2023-08-25] MEDS: PRIMIDONE 50 MG TAB PO SCH (08:53)
[2023-08-25] MEDS: CARBIDOPA/LEVODOPA 25/100MG TAB PO SCH (08:53)
[2023-08-25] MEDS: CEFEPIME 2,000 MG in SYRINGE 0 ML IV SCH (09:31)
[2023-08-25] MEDS: INSULIN ASPART PER UNIT CHARGE SC SCH (09:31)
[2023-08-25] MEDS: LANTUS PER UNIT CHARGE SQ SCH (09:32)
[2023-08-25] MEDS: ACETAMINOPHEN 325 MG TAB PO PRN (11:34)
[2023-08-25] MEDS: FAMOTIDINE 20 MG TAB PO SCH (19:45)
[2023-08-25] MEDS: TAMSULOSIN HCL 0.4 MG CAP PO SCH (19:46)
[2023-08-25] MEDS: ROSUVASTATIN CALCIUM 20 MG TAB PO SCH (19:46)
[2023-08-25] MEDS: PHENAZOPYRIDINE HCL 200 MG TAB PO PRN (20:49)
--- NOTE | 2023-08-26 15:59 | Discharge Summary ---
Discharge Summary Date of Service August 26, 2023 Principal Dx & Hospital Course #1 = Principal Diagnosis (1) Hematuria: 78yo female with ongoing hematuria with clots. Patient with recent TURBT and fulguration performed on 08/09/23. She had a Kemp in place since removed. urine culture is pinpoint growth re incubating, not discharged on antibiotics remains on diflucan -Consider Urology consultation will follow up as outpt -Continue Oxybutynin -Continue Flomax (2) Acute UTI: Patient with history of UTI - Patino-sensitive Pseudomonas as well as charles glabrata. She remains on Fluconazole. UA and culture sent in Urology office - -cultures are reincubating, no defined bacterial infection -Continue Pyridium -Continue Tylenol PRN (3) Diabetes: chronic resume glargine and metformin Plan Depression -Continue Escitalopram GERD -Continue Pepcid and Protonix Parkinsonism -Continue home Carbidopa-Levodopa Notes For Next Care Provider pt will need good follow up, urology and her cultures Admission HPI Per Admitting Provider Nadia Johnson is an 78yo female presenting from [facility] with report of hematuria. Patient's family at bedside and provides majority of history due to patient's underlying dementia. Patient was recently seen by Urology on 08/09/23 with history of incontinence and bladder ulcer. She had a cystoscopy performed with urethral dilation and TURBT as well as fulguration of bladder lesions. Pathology revealed ulcerated, inflamed urothelial mucosa which was negative for malignancy. Tissue heavily inflamed with abundant eosinophils. Patient was then discharged home with a catheter in place and instructions to maintain Kemp for 3-4 weeks. Patient had some difficulty with the Kemp catheter and continued to pull on it. She was seen in the ER on 08/11/23 with concern for Kemp being pulled out of place. Her Kemp was irrigated and proper placement was confirmed and she was ultimately discharged home from the ER. She was seen in the Urology office on 08/13/23 for post-void residual assessment following removal of Kemp. Plan to leave the catheter out for now. Over the last week patient developed worsening hematuria. She has been passing david blood with clots. The hematuria worsened over the weekend. Patient was seen in the Urology clinic earlier today and had a urine sample collected by straight cath and had a PVR study performed which was acceptable. She returned to [facility] and continued to have hematuria with passage of clots. Patient passed a large amount of clot around 16:00 and patient's daughter was contacted. She reached out to Urology again and was instructed to come to the ER. In the ER patient afebrile, HD stable No complaints Patient urinated in bedside commode during my encounter - hematuria present, seemingly improved from prior pictures Discharge Exam awake and pleasant no distress cardiac exam is regular lungs are clear Updated Medication List Medication Instructions Recorded Confirmed Type cholecalciferol (vitamin D3) 50 2,000 unit PO QAM 09/08/18 08/24/23 History mcg (2,000 unit) tablet (Vitamin D3) cyanocobalamin (vitamin B-12) 1,000 mcg PO QAM 09/08/18 08/24/23 History 1,000 mcg tablet (Vitamin B-12) acetaminophen 325 mg tablet 650 mg PO Q4H PRN Fever Or Pain 05/13/21 08/24/23 History lidocaine 4 % topical patch 1 patch topical DAILY PRN Pain 06/03/21 08/24/23 History metformin 500 mg tablet 500 mg PO BIDM 30 days #60 tabs 07/23/22 08/24/23 Rx pen needle, diabetic 31 gauge x #100 ea 08/17/22 08/24/23 Rx 3/16" (Sure-Fine Pen [place]) multivitamin (Daily-Devin tablet) 1 tab PO QAM 09/03/22 08/24/23 History polyethylene glycol 3350 17 17 g PO DAILY PRN constipation 01/29/23 08/24/23 Rx gram/dose oral powder (Miralax) #119 grams ondansetron HCl 4 mg tablet 4 mg PO Q8H PRN nausea and 03/17/23 08/24/23 Rx vomiting #20 tabs lancets 30 gauge (Safety Seal #100 ea 05/27/23 08/24/23 Rx Lancets) pen needle, diabetic, safety 30 #100 ea 05/27/23 08/24/23 Rx gauge x 1/3" (Novofine Autocover) primidone 50 mg tablet 100 mg (2 x 50 mg) PO BID #120 tabs 05/31/23 08/24/23 Rx insulin glargine 100 unit/mL (3 28 unit (0.28 mL) subcut QPM #15 mL 06/11/23 08/24/23 Rx mL) subcutaneous pen (Lantus Solostar U-100 Insulin) ascorbic acid (vitamin C) 500 mg 500 mg PO BID 06/29/23 08/24/23 History capsule cranberry 500 mg capsule 500 mg PO QAM 06/29/23 08/24/23 History diclofenac sodium 1 % topical gel 2 g topical QID PRN pain #100 grams 06/29/23 08/24/23 Rx methenamine hippurate 1 gram tablet 1 g PO BID 06/29/23 08/24/23 History olopatadine 0.7 % eye drops 1 drp ophthalmic (eye) QAM 06/29/23 08/24/23 History (Pataday Once Daily Relief) blood sugar diagnostic (OneTouch #100 ea 06/30/23 08/24/23 Rx Ultra Test strips) pantoprazole 40 mg tablet,delayed 40 mg PO QAM #30 tabs 07/26/23 08/24/23 Rx release rosuvastatin 20 mg tablet 20 mg PO HS #30 tabs 07/26/23 08/24/23 Rx escitalopram oxalate 20 mg tablet 20 mg PO QAM 07/30/23 08/24/23 History famotidine 20 mg tablet 20 mg PO 2000 07/30/23 08/24/23 History tamsulosin 0.4 mg capsule 0.4 mg PO HS #30 caps 08/09/23 08/24/23 Rx oxybutynin chloride 5 mg tablet 5 mg PO Q8H PRN bladder spasms #20 08/19/23 0 08/24/23 Rx tabs carbidopa 25 mg-levodopa 100 mg 2 tab PO TID 30 days #180 tabs 08/20/23 08/24/23 Rx tablet dextromethorphan-guaifenesin 10 10 ml PO Q8 PRN Cough 08/24/23 08/24/23 History mg-100 mg/5 mL oral syrup (Tussin DM) diclofenac sodium 1 % topical gel 2 g topical QID PRN Pain 08/24/23 08/24/23 History fluconazole 200 mg tablet 200 mg PO DAILY 08/24/23 08/24/23 History fluticasone propionate 50 1 spray intranasal DAILY 08/24/23 08/24/23 History mcg/actuation nasal spray,suspension olopatadine 0.7 % eye drops 1 drp ophthalmic (eye) QPM PRN 08/24/23 08/24/23 History (Pataday Once Daily Relief) allergies phenazopyridine 100 mg tablet 100 mg PO TID #30 tabs 08/24/23 08/24/23 Rx (Pyridium) phenazopyridine 200 mg tablet 200 mg PO Q8H PRN pain #10 tabs 08/24/23 08/24/23 Rx (Pyridium) Hospital Stay Data Consultations 08/24/23 22:04 ED Decision to Admit Stat Diagnostic Imagining Performed 08/24/23 18:07 CT abd pelvis IV con only Stat Pending Results Patient Have Any Pending Studies at Discharge: Yes Discharge Instructions Given to Patient (Per Discharging Provider) please participate in home health physical therapy please follow up with urology as prevoiusly arranged Total Time Total Time Spent Total Time Spent (In Minutes): It required greater than 30 minutes to prepare this patient for discharge. Coding Level of Care Code 37817 INP/OBS DISCH >30 MIN Diagnoses Hematuria R31.0 Hematuria type: gross Acute UTI N39.0 Diabetes E11.9
== END 2023-08-26 13:35 | disposition home or self-care (01) | DRG 696 ==
LOC: ED 17:32 → 3N 22:56 → SUATTDRO 22:56 → 3N 23:41
DX: Z88.2 Allergy status to sulfonamides; G20.C Parkinsonism, unspecified; K21.9 Gastro-esophageal reflux disease without esophagitis; Z79.899 Other long term (current) drug therapy; F32.A Depression, unspecified; Z88.8 Allergy status to other drugs, medicaments and biological substances; Z88.5 Allergy status to narcotic agent; E11.9 Type 2 diabetes mellitus without complications; Z91.048 Other nonmedicinal substance allergy status; N39.0 Urinary tract infection, site not specified; R31.0 Gross hematuria; Z98.890 Other specified postprocedural states; Z79.4 Long term (current) use of insulin; Z88.6 Allergy status to analgesic agent; Z79.84 Long term (current) use of oral hypoglycemic drugs; Z87.440 Personal history of urinary (tract) infections

== ENCOUNTER 2023-09-26 22:20 | Inpatient (IN) ==
--- OUTSIDE RECORDS SUMMARY | 2023-09-26 22:25 | External Medical Summary | Summary of Care ---
Author Name Unknown Organization [facility] Address [address] [place] [address] Phone [phone] Care Team Providers Care Internet Manager Name Role Phone Remedios Medrano Primary Care Provide r Encounter Details Date Type Department Care Team (Late st Contact Info) Description 09/22/2023 Population Health External Data Unspecified Department Allergies Active Allergy Reactions Criticality Noted Date Comments Adhesive Tape Itching 10/13/2018 Naproxen Sodium Itching 08/20/2016 Ampicillin Itching,Nausea/vomiting 05/04/2000 Levetiracetam 06/26/2020 Morphine Nausea/vomiting 09/20/2013 Naproxen Sodium Itching 02/08/2013 Sulfa Antibiotics Itching,Nausea/vomiting 12/19 documented as of this encounter (statuses as of 09/22/2023) Medications Medication Sig Dispensed Refills Start Date End Date Status traMADol HCl 50 MG Oral Tablet (Ultram)Indications: Sacral pain,Pain of left thigh,Pain of right thigh Take 1 Tablet by mouth every 6 hours as needed for Pain, Severe. 30 Tablet 01/25/2023 Active Acetaminophen 325 MG Oral Tablet (Tylenol)Indications :Pain of left thigh,Pain of right thigh Take 1 Tablet by mouth in the morning. 30 Tablet 01/25/2023 Active B-12 1000 MCG Oral Capsule Take 1 Capsule by mouth in the morning. 30 Capsule 01/25/2023 Active Carbidopa-Levodopa 25-100 MG Oral Tablet (Sinemet)Indications :Other secondary parkinsonism (HCC) Take 2 Tablets by mouth in the morning and 2 Tablets at noon and 2 Tablets before bedtime. 180 Tablet 01/25/2023 Active Diclofenac Sodium 1 % External Gel (Voltaren)Indication s:Pain of left thigh,Pain of right thigh Apply 4 g topically to affected area in the morning and 4 g at noon and 4 g before bedtime. And may apply 4 gm to bilateral hips up to 4x daily as needed for pain. 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 30 Tablet 01/25/2023 Active Famotidine 20 MG Oral Tablet (Pepcid)Indications: Gastroesophageal reflux disease, unspecified whether esophagitis present Take 1 Tablet by mouth in the morning. 30 Tablet 01/25/2023 Active Fluticasone Propionate 50 MCG/ACT Nasal Suspension (Flonase)Indications :Allergic rhinitis, unspecified seasonality, unspecified trigger Administer 1 Page into nostril in the morning. Both nostrils. 16 g 01/25/2023 Active Insulin Glargine 100 UNIT/ML Subcutaneous Solution (Lantus)Indications: Type 2 diabetes mellitus with hemoglobin A1c goal of less than 8.0% (HCC) Inject 28 Units under the skin at bedtime. 1 Each 01/25/2023 Active Lidocaine 4 % External Patch (Aspercreme)Indicati ons:Pain of left thigh,Pain of right thigh Place 1 Patch over 12 hours topically on the skin daily. Right hip pain 30 Patch 01/25/2023 Active Nitrofurantoin Macrocrystal 50 MG Oral Capsule (Macrodantin)Indicat ions:Recurrent UTI Take 1 Capsule by mouth at bedtime. 30 Capsule 01/25/2023 Active metFORMIN HCl 500 MG Oral Tablet (Glucophage)Indicati ons:Type 2 diabetes mellitus with hemoglobin A1c goal of less than 8.0% (HCC) Take 1 Tablet by mouth 2 times a day with morning and evening meals. 60 Tablet 01/25/2023 Active Polyethylene Glycol 3350 17 GM/SCOOP Oral Powder (MiraLax) Take 17 g by mouth in the morning. Dissolve one heaping tablespoon in 8 ounces of water or juice.. 255 g 01/25/2023 Active Multi-Vitamins Oral Tablet Take 1 Tablet by mouth in the morning. 30 Tablet 01/25/2023 Active Olopatadine HCl 0.1 % Ophthalmic Solution (Patanol)Indications :Allergic rhinitis, unspecified seasonality, unspecified trigger Instill 1 Drop into both eyes in the morning and 1 Drop before bedtime. 5 mL 01/25/2023 Active Pantoprazole Sodium 40 MG Oral Tablet Delayed Release (Protonix)Indication s:Gastroesophageal reflux disease, unspecified whether esophagitis present Take 1 Tablet by mouth in the morning. 30 Tablet 01/25/2023 Active Primidone 50 MG Oral Tablet (Mysoline)Indication s:Other secondary parkinsonism (HCC) Take 2 Tablets by mouth in the morning and 2 Tablets before bedtime. 120 Tablet 01/25/2023 Active Rosuvastatin Calcium 20 MG Oral Tablet (Crestor)Indications :Dyslipidemia, goal LDL below 100 Take 1 Tablet by mouth in the morning. 30 Tablet 01/25/2023 Active Vitamin D3 50 MCG (2000 UT) Oral Tablet Take 1 Tablet by mouth in the morning. 30 Tablet 01/25/2023 Active Nitroglycerin 0.4 MG Sublingual Tablet Sublingual (Nitrostat) Place 1 Tablet under the tongue every 5 minutes as needed for Pain, Chest. 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 12/31/2022 Closed fracture of coccyx 01/23/2021 Cognitive deficits 01/23/2021 3 Loss of weight 01/23/2021 12/31/2022 ABN INVOLUN MOVEMENT NEC 03/2020 documented as of this encounter (statuses as of 09/22/2023) Immunizations Name Administration Dates Next Due COVID-19 mRNA, LNP-s, No Pre serve, 2-Dose Series (Moderna) 05/15/2020,04/17/2020 documented as of this encounter Social History Tobacco Use Types Packs/Day Years Used Date Smoking Tobacco: Former Cigarettes Q uit: 05/21/2013 Smokeless Tobacco: Never Alcohol Use Standard Drinks/Week Comments No 0 (1 standard drink = 0.6 oz pur e alcohol) Utilities Answer Date Recorded Do you have trouble paying y our heating, water, or electric bill? (Adult - for ages 18 years and over) Not on file 08/10/2023 Is your family able to pay t he heat, water, or electric bill? (Household - for ages 0-17 years) Not on file 08/10/2023 Does your family have access to good internet? (Household - for ages 0-17 years) Not on file 08/10/2023 Social Connections Answer Date Recorded How often do you feel lonely or isolated from those around you? (Adult - for ages 18 years and over) Not on file 08/10/2023 Sex and Gender Information Value Date Recorded Sex Assigned at Not on file Gender Identity Not on file Sexual Orientation Not on file Job Start Date Occupation Industry Not on file Not on file Not on file documented as of this encounter Functional Status Functional Status Response Date of Assess ment Are you deaf or do you have serious difficulty h earing? No 11/30/2017 Are you blind or do you have serious difficulty seeing, even when wearing glasses? No 11/30/2017 Do you have serious difficul ty walking or climbing stairs? (5 years old or older) No 11/30/2017 Do you have difficulty dress ing or bathing? (5 years old or older) No 11/30/2017 Because of a physical, menta l, or emotional condition, do you have difficulty doing errands alone such as visiting a doctor s office or shopping? (15 years old or older) No 12/01/19 18 Cognitive Status Response Date of Assessm ent Because of a physical, menta l, or emotional condition, do you have serious difficulty concentrating, remembering, or making decisions? (5 years old or older) No 11/30/2017 documented as of this encounter Plan of Treatment Health Maintenance Due Date Last Done Comments DXA Scan 1945 Depression Screening 1955 Diabetic Foot Exam 07/30/1961 Albumin/Creatinine Ratio 03/24/2002 03/24/2001, 07/1999 DTaP,Tdap,and Td Vaccines (2 - Tdap) 02/17/2006 02/18/1996 Pneumococcal Vaccine: 65+ Years (3 of 3 - PPSV23 or PCV20) 02/01/2015 02/01/2014, 10/29/2000 HbA1c 07/25/2021 01/24/2021, 05/23, 06/06/2007, Additional history exists COVID-19 Vaccine ( season) 2023 01/29/2023, 05/15/2020, 04/17/2020 Influenza Vaccine (FLU shot) (#1) 2023 01/29/2021, 10/31/2019, 12/14/2018 GFR 01/02/2024 01/01/2023, 04/2020, 09/30/2018, Additional history exists Diabetic Eye Exam 07/07/2024 07/08/2023, , 04/07/2023, Additional history exists Zoster Vaccines Completed 06/20/2020, 02/06/2020 HPV (Gardasil) Vaccine Aged Out No lo nger eligible based on patient's age to complete this topic Hepatitis B Vaccine Aged Out No longe r eligible based on patient's age to complete this topic MENINGOCOCCAL (MENACTRA/MENVEO) Aged Out No longer eligible based on patient's age to complete this topic documented as of this encounter Medical Devices Implanted Type Area Suction Worker Device Identifier Shelf Expiration Date Model / Serial / Lot Kit Lead Dbs 1.5mm 3387s-40 - [id number] Implanted:Qty: 1 on 09/20/2013 at OR [facility] Right: Head [employer] : NEUROLOGIC PAIN 03/27/2017 3387S-40 / / [id number] Kit Lead Dbs 1.5mm [id number]-40 - [id number] Implanted:Qty: 1 on 09/20/2013 at OR [facility] Left: Head [employer] : NEUROLOGIC PAIN 03/27/2017 3387S-40 / / [id number] Extension Dbs 60cm [id number] - [id number] Implanted:Qty: 1 on 09/27/2013 at OR [facility] Left: Chest Medtrol 04/20/2017 54548-11 / [id number] / Extension Dbs 60cm 22622-88 - [id number] Implanted:Qty: 1 on 09/27/2013 at OR [facility] Right: Chest Medtrol 04/20/2017 24346-66 / [id number] / Neurostim Activa Deep Brain - [id number] - [id number] Implanted:Qty: 1 on 09/07/2016 at OR [facility] Right: Chest [employer] 01/05/2018 48411 / [id number] / Neurostim Activa Deep Brain - [id number] - [id number] Implanted:Qty: 1 on 09/07/2016 at OR [facility] Left: Chest [employer] 01/19/2018 [id number] / [id number] / Plug Neurostim 29cm 3550-29 - [id number] Implanted:Qty: 1 on 10/13/2018 by Kevin Hood MD at OR [facility] Left: Chest [employer] : NEUROLOGIC PAIN 11/08/2021 3550-29 / / Battery Activa Rc [id number] - [id number] Implanted:Qty: 1 on 10/13/2018 by Kevin Hood MD at OR [facility] Right: Chest [employer] 08/06/2019 [id number] / / Plug Neurostim 29cm 3550-29 - [id number] Implanted:Qty: 1 on 10/13/2018 by Kevin Hood MD at [facility] Right: Chest [employer] : NEUROLOGIC PAIN 06/19/2021 3550-29 / / Battery Activa Rc [id number] - [id number] Implanted:Qty: 1 on 10/13/2018 by Kevin Hood MD at [facility] Left: Chest [employer] 08/06/2019 [id number] / / documented as of this encounter Advance Directives * Full Code (Latest Code Status on File) Date Activated Date Inactivated Comments 10/13/2018 1:22 PM 10/13/2018 9:59 PM This order r eflects the patients wishes and were consensually agreed upon. * Full Code Date Activated Date Inactivated Comments 09/27/2013 6:10 AM 09/28/2013 1:42 PM This order ref lects the patients wishes and were consensually agreed upon. * Full Code Date Activated Date Inactivated Comments 09/20/2013 1:02 PM 09/21/2013 6:29 PM This order r eflects the patients wishes and were consensually agreed upon. * Full Code Date Activated Date Inactivated Comments 09/20/2013 5:36 AM 09/20/2013 1:02 PM This order r eflects the patients wishes and were consensually agreed upon. Care Teams Internet Manager Relationship Specialty Start Date End Date Remedios Medrano CRNP [address] [place] [id number] PCP - General Nurse Practitioner 12/28/13 documented as of this encounter
--- NOTE | 2023-09-26 23:46 | Emergency Department Note ---
Impression & Plan AIXA (acute kidney injury), Acute pyelonephritis, Pneumonia Admit to the hospitalist ED Provider Note NAME: WAN ZAVALA AGE: 78 SEX: Female INFORMANT: Patient ED PROVIDER(S): Betty Price DO CHIEF COMPLAINT: fall PLAN: Disposition: Admit to the hospitalist MEDICAL DECISION MAKING: this is an 78-year-old female patient from [facility] who suffered a ground-level fall earlier today striking her right flank on a door jam. The patient apparently was walking with out her walker when she fell striking her right flank and suffers with a large contusion over the right lower posterior chest and right flank. Iwmiqmwy-ey-yqe at the bedside explains that the patient has been increasingly confused over the past 2 to 3 weeks with a UTI which she is currently taking antibiotics. She believes it is amoxicillin. Patient has baseline incontinence. Laboratory studies reveal no leukocytosis. Patient is a baseline anemia at 10.3. Creatinine has doubled to 2.1. BUN has also doubled to 31. Glucose is at 133. I obtain CT scan of the chest and abdomen/pelvis to rule out acute traumatic injury as the patient suffered a fall and has acute evidence of trauma to her chest and flank. No traumatic injuries were identified but there was evidence of a right upper lobe pneumonia as well as pyelonephritis. Patient was started on piperacillin/tazobactam here in the emergency department. Patient is failing outpatient treatment for her urinary tract infection and has significant weakness and confusion will require inpatient hospitalization. I discussed the case with the hospitalist and they will evaluate for further inpatient care. Care/management discussed with: The patient and her iglnwsoz-um-mfy, human resources office manager and hospitalist Triage Nursing notes: reviewed and agree with them. Vital Signs: reviewed and remarkable for bradycardia Additional History obtained from: [id number] who is at the bedside Chronic Medical/Social Conditions affecting care: urinary incontinence Prior/ Outside/ External records reviewed: I reviewed previous urinary cultures and bacteria has been susceptible to pip-tazo. Differential Diagnosis: rib fractures, right-sided renal injury,, dehydration, renal failure, persistent UTI Diagnostics, independently interpreted by me: Cardiac Monitoring: Sinus bradycardia at 56. Imaging studies: CT scan of the chest: As per stat rad CT scan of the abdomen/pelvis: As per stat rad HPI: 78 year old Female arrives for evaluation of trauma. The patient presents from [facility]. Patient has become somewhat confused as a result of a urinary tract infection for which she is taking amoxicillin. She got up today to eat walk without her walker and fell into a door jam striking the right side of her posterior back and her right flank. She now has pain in that area with a coinciding large contusion. The patient remains significantly confused. PAST MEDICAL HISTORY: See Below, PAST SURGICAL HISTORY: See Below, SOCIAL HISTORY: See Below, HOME MEDICATIONS: See list ALLERGIES: See list VITALS: See Below PHYSICAL EXAMINATION: HEENT: Head - normocephalic and atraumatic. Pupils are equal, round, and reactive to light. Extraocular eye muscles are intact and sclera are anicteric. Nose -dry nasal mucosa without evidence of trauma or discharge. Mouth - dry buccal mucosa with no trauma to the teeth or signs of malocclusion. Neck: The neck is supple and there is no pain to palpation over the posterior cervical spine and no obvious step-offs or deformities. There is no JVD or tracheal deviation. Chest: No obvious signs of contusions or abrasions over the anterior chest wall.. There is no obvious crepitus or paradoxical chest rise. Heart: Bradycardic rate, and rhythm. There is a normal S1 and S2 with no murmurs, clicks, or gallops appreciated. Lungs: Clear to auscultation bilaterally with no wheezes, rales, or rhonchi. Abdomen: Soft, completely nontender, nondistended, with good bowel sounds. There is no sign of trauma such as contusions, abrasions or penetrations. There are no palpable pulsatile masses or hepatosplenomegaly. There is no guarding, rigidity, or rebound noted. Pelvis: Stable to rock and compression. Extremities: No obvious trauma, deformities, contusions, or edema. There are easily palpable peripheral pulses. Neuro: The patient is awake and alert and easily able to follow commands. She seems pleasantly confused but does answer some questions appropriately. Muscle strength is 5 out of 5 in all 4 extremities. Back: The entire thoracic, lumbar, and sacral spine were palpated. There are no obvious step-offs or deformities noted. There is a large contusion noted over the right posterior inferior chest/back/flank. Emergency Department course: The patient was evaluated in room B-4. A complete history and physical was performed. Laboratory studies were drawn as above. Urine specimen was obtained. Patient went for CT scan of the chest and abdomen/pelvis. IV antibiotics were initiated. I relayed my findings to the [id number]. I discussed the case with the hospitalist. Past Med/Surg History Problem List (Updated 09/28/23 @ 08:31 by Betty Price DO) Pneumonia (Acute) Acute pyelonephritis (Acute) AIXA (acute kidney injury) (Acute) Ground glass opacity present on imaging of lung Thyroid nodule Incontinence Bladder ulcer Seizure-like activity 02/[address] 02/2023- thyroid nodule- recommend thyroid u/s; pulmonary nodules- recommend six month CT follow up (PCP aware per records) Murmur Hypomagnesemia (Acute) Verónica cystitis Iliotibial band syndrome, right leg Trochanteric bursitis, right hip Abdominal pain Right hip pain Ovarian cyst, right Left shoulder pain Orthostatic hypotension Recurrent infections Ataxia Osteopenia Parkinsonism Pelvic pain DM type 2 (diabetes mellitus, type 2) Varicose veins of legs Vertigo (Acute) Memory loss (Chronic) Essential tremor (07/28/13) HTN, goal below 140/90 (Chronic 03/30/17) Vitamin D deficiency (Acute) Trigeminal neuralgia (Acute) Mixed hyperlipidemia (Chronic) Insomnia (Acute) Dysphagia (Acute) No dysphagia symptoms per 06/29/23 PCP records Anxiety (Chronic) Allergic rhinitis (Acute) Depression COPD (chronic obstructive pulmonary disease) (Chronic) IBS (irritable bowel syndrome) (Chronic) Tubular adenoma of colon Medical History Diabetes Anemia Urinary tract infection Hematuria Resides in long term facility all med hx obtained from [facility] Medical Record History of vertigo Varicose veins of both lower extremities History of trigeminal neuralgia Seizure-like activity Episode of syncope/near syncope- admitted to [facility] 02/2023 (diagnosed with UTI and acute metabolic encephalopathy) EEG 02/2023 WNL Parkinsonism Osteopenia History of orthostatic hypotension Hyperlipemia Memory loss Cognitive changes felt related to age per neurology Iliotibial band syndrome affecting right lower leg Insomnia Incontinence IBS (irritable bowel syndrome) Hypertension Essential tremor s/p bilateral DBS placement 2013 R>L hand per neuro records Diabetes mellitus, type 2 Heart murmur No significant heart valve disease per 02/2023 ECHO Depression COPD (chronic obstructive pulmonary disease) ? per [place] record, pt not on any oxygen or inhalers Bladder ulcer Following with urology Ataxia Per daughter in law- patient can usually ambulate with walker- occ will need wheelchair Anxiety History of falling Coccygeal fracture hx of Nausea Constipation Recurrent urinary tract infection Follows with ID and urology Sensorineural hearing loss (SNHL) of both ears GERD (gastroesophageal reflux disease) resolved, off PPI Surgical History Status post tubal ligation S/P sinus surgery S/P cholecystectomy S/P deep brain stimulator placement (08/20/16) Family History Father Cancer Mother Depression Hypertension Stroke Grandmother Breast cancer Mother Myocardial infarction Other Family history unknown Denies family history of Ovarian cancer Prostate cancer Colorectal cancer Social History Smoking Status: Former smoker Second Hand Exposure: No; Do You Dip or Chew Tobacco: No; Hx Alcohol Use: No Hx Substance Use: No Preferred Language: Slovak Communication Ability: Effective Payroll Auditor Required: No Beliefs That Will Affect Care: None marital status: / Current Living Situation: Personal Care Facility Current Living Situation Comment: lives at [facility] current occupational status: retired How many Children do You have: 3 Other Information That Helps Us Care for You: No Feels Safe at Home: Yes Safety Concerns: Feels Safe At This Time Childhood Exposure to Second-Hand Smoke: Yes Diet: regular caffeine: Yes Dental Care, Regularly: No Physical Activity Frequency: Does not Exercise Seatbelt Use: always Sunscreen Use: No Assistive Devices: Denture - Upper, Denture - Lower and Walker Allergies Allergies Allergy/AdvReac Type Severity Reaction Status Date / Time levetiracetam Allergy Intermediate Rash Verified 08/09/23 07:05 adhesive tape Allergy Mild Rash Verified 08/09/23 07:05 naproxen Allergy Mild RASH Verified 08/09/23 07:05 morphine Allergy Unknown Unknown Verified 08/09/23 07:05 sulfamethoxazole AdvReac Mild Nausea Verified 08/09/23 07:05 [From Bactrim] trimethoprim [From Bactrim] AdvReac Mild Nausea Verified 08/09/23 07:05 Home Meds Home Medications Medication Instructions Recorded Confirmed cholecalciferol (vitamin D3) 50 2,000 unit PO QAM 09/08/18 08/30/23 mcg (2,000 unit) tablet (Vitamin D3) cyanocobalamin (vitamin B-12) 1,000 mcg PO QAM 09/08/18 08/30/23 1,000 mcg tablet (Vitamin B-12) acetaminophen 325 mg tablet 650 mg PO Q4H PRN Fever Or Pain 05/13/21 08/30/23 lidocaine 4 % topical patch 1 patch topical DAILY PRN Pain 06/03/21 08/30/23 multivitamin (Daily-Devin tablet) 1 tab PO QAM 09/03/22 08/30/23 ascorbic acid (vitamin C) 500 mg 500 mg PO BID 06/29/23 08/30/23 capsule cranberry 500 mg capsule 500 mg PO QAM 06/29/23 08/30/23 olopatadine 0.7 % eye drops 1 drp ophthalmic (eye) QAM 06/29/23 08/30/23 (Pataday Once Daily Relief) escitalopram oxalate 20 mg tablet 20 mg PO QAM 07/30/23 08/30/23 famotidine 20 mg tablet 20 mg PO 199907/30/23 08/30/23 dextromethorphan-guaifenesin 10 10 ml PO Q8 PRN Cough 08/24/23 08/30/23 mg-100 mg/5 mL oral syrup (Tussin DM) diclofenac sodium 1 % topical gel 2 g topical QID PRN Pain 08/24/23 08/30/23 fluconazole 200 mg tablet 200 mg PO DAILY 08/24/23 08/30/23 fluticasone propionate 50 1 spray intranasal DAILY 08/24/23 08/30/23 mcg/actuation nasal spray,suspension olopatadine 0.7 % eye drops 1 drp ophthalmic (eye) QPM PRN 08/24/23 08/30/23 (Pataday Once Daily Relief) allergies Previous Rx's Medication Instructions Recorded metformin 500 mg tablet 500 mg PO BIDM 30 days #60 tabs 07/23/22 pen needle, diabetic 31 gauge x #100 ea 08/17/22 3/16" (Sure-Fine Pen [place]) polyethylene glycol 3350 17 17 g PO DAILY PRN constipation 01/29/23 gram/dose oral powder (Miralax) #119 grams ondansetron HCl 4 mg tablet 4 mg PO Q8H PRN nausea and 03/17/23 vomiting #20 tabs lancets 30 gauge (Safety Seal #100 ea 05/27/23 Lancets) pen needle, diabetic, safety 30 #100 ea 05/27/23 gauge x 1/3" (Novofine Autocover) primidone 50 mg tablet 100 mg (2 x 50 mg) PO BID #120 tabs 05/31/23 insulin glargine 100 unit/mL (3 28 unit (0.28 mL) subcut QPM #15 mL 06/11/23 mL) subcutaneous pen (Lantus Solostar U-100 Insulin) diclofenac sodium 1 % topical gel 2 g topical QID PRN pain #100 grams 06/29/23 blood sugar diagnostic (OneTouch #100 ea 06/30/23 Ultra Test strips) pantoprazole 40 mg tablet,delayed 40 mg PO QAM #30 tabs 07/26/23 release rosuvastatin 20 mg tablet 20 mg PO HS #30 tabs 07/26/23 tamsulosin 0.4 mg capsule 0.4 mg PO HS #30 caps 08/09/23 oxybutynin chloride 5 mg tablet 5 mg PO Q8H PRN bladder spasms #20 08/19/23 tabs carbidopa 25 mg-levodopa 100 mg 2 tab PO TID 30 days #180 tabs 08/20/23 tablet phenazopyridine 100 mg tablet 100 mg PO TID #30 tabs 08/24/23 (Pyridium) fluconazole 200 mg tablet 200 mg PO DAILY 2 weeks #14 tabs 09/13/23 phenazopyridine 200 mg tablet 200 mg PO TID 6 doses #6 tabs 09/13/23 (Pyridium) methenamine hippurate 1 gram tablet See Rx Instructions .Route 09/22/23 .COMPLEX #60 tabs Results & Data (ED) Vital Signs Vital Signs - 24 hr 09/26/23 22:24 09/26/23 22:28 09/26/23 22:30 Temperature 36.7 C Temperature Source Oral Pulse Rate 63 Pulse Rate from SpO2 Sensor Respiratory Rate 13 Respiratory Effort / Characteristics Non-Labored Spontaneous Respiratory Depth Normal Blood Pressure 95/71 L 95/71 L 128/57 L Blood Pressure Mean 82 79 101 Pulse Oximetry 94 Oxygen Delivery Method Room Air Sepsis Recent Fever Within 48 Hours No Sepsis New/Unexplained Change in Mental Status No Sepsis Action Taken by Nursing No Action Required 09/26/23 22:30 09/26/23 22:32 09/26/23 22:39 Temperature Temperature Source Pulse Rate 60 58 L Pulse Rate from SpO2 Sensor 58 L Respiratory Rate 16 Respiratory Effort / Characteristics Respiratory Depth Blood Pressure 128/57 L Blood Pressure Mean 101 Pulse Oximetry 93 Oxygen Delivery Method Sepsis Recent Fever Within 48 Hours Sepsis New/Unexplained Change in Mental Status Sepsis Action Taken by Nursing 09/26/23 22:45 09/26/23 22:57 09/26/23 23:00 Temperature Temperature Source Pulse Rate 58 L 56 L Pulse Rate from SpO2 Sensor 58 L 56 L Respiratory Rate 17 17 Respiratory Effort / Characteristics Respiratory Depth Blood Pressure 113/55 L Blood Pressure Mean 83 Pulse Oximetry 94 94 Oxygen Delivery Method Sepsis Recent Fever Within 48 Hours Sepsis New/Unexplained Change in Mental Status Sepsis Action Taken by Nursing 09/26/23 23:03 09/26/23 23:12 09/26/23 23:30 Temperature Temperature Source Pulse Rate 57 L 56 L Pulse Rate from SpO2 Sensor 57 L 57 L Respiratory Rate 19 16 Respiratory Effort / Characteristics Respiratory Depth Blood Pressure 114/55 L Blood Pressure Mean 82 Pulse Oximetry 95 94 Oxygen Delivery Method Sepsis Recent Fever Within 48 Hours Sepsis New/Unexplained Change in Mental Status Sepsis Action Taken by Nursing Laboratory Data 09/26/23 22:30 09/26/23 22:30 Lab Results 09/26/23 09/27/23 Range/Units 22:30 02:45 WBC 6.37 (4.8-10.8) K/ul RBC 3.59 L (4.20-5.40) M/uL Hgb 10.3 L (12.0-16.0) g/dl Hct 32.7 L (37.0-47.0) % MCV 91.1 (80.0-100.0) fL MCH 28.7 (25.0-34.0) pg MCHC 31.5 L (32.0-36.0) g/dL RDW Std Deviation 48.1 H (36.4-46.3) fL RDW Coeff of Sunitha 14.5 (11.5-14.5) % Plt Count 201 (130-400) K/uL MPV 11.0 (9.4-12.4) fL Immature Gran % (Auto) 0.3 % Neut % (Auto) 65.4 % Lymph % (Auto) 19.9 % [place] % (Auto) 10.0 % Eos % (Auto) 3.8 % Baso % (Auto) 0.6 % Neut # (Auto) 4.16 (1.40-6.50) K/uL Lymph # (Auto) 1.27 (1.20-3.40) K/uL [place] # (Auto) 0.64 H (0.11-0.59) K/uL Eos # (Auto) 0.24 (0.00-0.50) K/uL Baso # (Auto) 0.04 (0.00-0.20) K/uL Immature Gran # (Auto) 0.02 (0.01-0.20) K/uL Sodium 138 (136-145) mmol/L Potassium 4.4 (3.5-5.1) mmol/L Chloride 108 H (98-107) mmol/L Carbon Dioxide 19 L (21-32) mmol/L Anion Gap 11 (3-11) BUN 31 H (6-23) mg/dl Creatinine 2.18 H (0.6-1.2) mg/dl Est Cr Clr Drug Dosing 21.1 ml/min Est GFR ( Amer) 24.0 ml/min Est GFR (Non-Af Amer) 20.7 ml/min BUN/Creatinine Ratio 14.2 (10-20) Glucose 133 H (70-99(Fasting)) mg/dl Calcium 10.2 (8.6-10.3) mg/dl Total Bilirubin 0.3 (0.2-1.0) mg/dl AST 8 L (13-39) U/L ALT 10 (7-52) U/L Alkaline Phosphatase 58 (34-104) U/L Total Protein 6.7 (6.0-8.3) gm/dl Albumin 4.2 (3.4-5.0) gm/dl Globulin 2.5 (2.5-4.0) gm/dl Albumin/Globulin Ratio 1.7 (0.9-2) Urine Color See Comment Urine Appearance Slightly Cloudy (Clear) Urine pH Not Reportable Ur Specific [place] 1.020 (1.000-1.030) Urine Protein Not Reportable Urine Glucose (UA) Not Reportable Urine Ketones Not Reportable Urine Blood Not Reportable Urine Nitrite Not Reportable Urine Bilirubin Not Reportable Urine Urobilinogen Not Reportable Ur Leukocyte Esterase Not Reportable Urine RBC 0-2 (0-2) /hpf Urine WBC >50 H (0-5) /hpf Ur Epithelial Cells 0-2 (0-2) /hpf Urine Bacteria None Seen (None Seen) Adenovirus (PCR) Not Detected (NotDetected) B. pertussis DNA (PCR) Not Detected (NotDetected) B.parapertussis DNA PCR Not Detected (NotDetected) C. pneumoniae DNA (PCR) Not Detected (NotDetected) Coronavirus OC43 (PCR) Not Detected (NotDetected) Coronavirus HKU1 (PCR) Not Detected (NotDetected) Coronavirus 229E (PCR) Not Detected (NotDetected) SARS-CoV-2 (PCR) Not Detected (NotDetected) Coronavirus NL63 (PCR) Not Detected (NotDetected) Human Metapneumovir PCR Not Detected (NotDetected) Influenza Type A (PCR) Not Detected (NotDetected) Influenza Type B (PCR) Not Detected (NotDetected) M. pneumoniae (PCR) Not Detected (NotDetected) Parainfluenza 1 (PCR) Not Detected (NotDetected) Parainfluenza 2 (PCR) Not Detected (NotDetected) Parainfluenza 3 (PCR) Not Detected (NotDetected) Parainfluenza 4 (PCR) Not Detected (NotDetected) RSV (PCR) Not Detected (NotDetected) Entero/Rhino (PCR) Not Detected (NotDetected) Administered Medications Acetaminophen (Acetaminophen 325 Mg Tab) 650 mg PO Q4H PRN PRN Reason: Pain or Fever Stop: 10/27/23 05:30 Last Admin: 09/27/23 18:40 Dose: 650 mg Documented By: Admin: 09/27/23 08:21 Dose: 650 mg Documented By: EW Carbidopa/Levodopa (Carbidopa/Levodopa 25/100mg Tab) 2 tab PO TID ABIGAIL Stop: 10/27/23 08:59 Last Admin: 09/27/23 21:46 Dose: 2 tab Documented By: Admin: 09/27/23 14:03 Dose: 2 tab Documented By: Admin: 09/27/23 08:22 Dose: 2 tab Documented By: EW Diclofenac Sodium (Diclofenac Sod 1% Gel 100 Gm Tube) 2 gm EXT QID PRN; Protocol PRN Reason: Pain Stop: 10/27/23 05:30 Last Admin: 09/27/23 22:16 Dose: 2 gm Documented By: Admin: 09/27/23 14:40 Dose: 2 gm Documented By: EW Escitalopram Oxalate (Escitalopram Oxalate 20 Mg Tab) 20 mg PO QAM [facility] Stop: 10/27/23 08:59 Last Admin: 09/27/23 08:22 Dose: 20 mg Documented By: EW Famotidine (Famotidine 20 Mg Tab) 20 mg PO DAILY@1999 [facility] Stop: 10/27/23 19:59 Last Admin: 09/27/23 20:51 Dose: 20 mg Documented By: DAVID Fluticasone Propionate (Fluticasone Propionate Na Spr 16 Gm Btl) 1 sprays NA DAILY [facility] Stop: 10/27/23 08:59 Last Admin: 09/27/23 08:22 Dose: 1 sprays Documented By: PHILIPPE Piperacillin Sod/Tazobactam (Sod 4.5 gm/ Dextrose) 100 mls @ 25 mls/hr IV Q8H [facility]; Protocol Stop: 10/04/23 09:59 Last Infusion: 09/28/23 05:59 Dose: Infused Documented By: Admin: 09/28/23 01:46 Dose: 25 mls/hr Documented By: Infusion: 09/27/23 21:07 Dose: Infused Documented By: Admin: 09/27/23 17:07 Dose: 25 mls/hr Documented By: Infusion: 09/27/23 14:02 Dose: Infused Documented By: Admin: 09/27/23 10:11 Dose: 25 mls/hr Documented By: EW Sodium Chloride (Nss) 1,000 mls @ 100 mls/hr IV .Q10H [facility] Stop: 10/27/23 05:59 Last Admin: 09/28/23 03:02 Dose: 100 mls/hr Documented By: Infusion: 09/28/23 03:02 Dose: Infused Documented By: Admin: 09/27/23 17:06 Dose: 100 mls/hr Documented By: Infusion: 09/27/23 16:55 Dose: Infused Documented By: Admin: 09/27/23 06:55 Dose: 100 mls/hr Documented By: WENDY Insulin Aspart (Insulin Aspart Per Unit Charge) 0 units SC ACHS [facility] Stop: 10/27/23 07:29 Last Admin: 09/27/23 21:02 Dose: 1 units Documented By: DAVID Co-signed By: PRIYANK Admin: 09/27/23 18:41 Dose: Not Given Documented By: Admin: 09/27/23 11:58 Dose: 5 units Documented By: PHILIPPE Co-signed By: TEOFILO Admin: 09/27/23 08:24 Dose: Not Given Documented By: EW Insulin Glargine (Lantus Per Unit Charge) 10 units SQ BID [facility] Stop: 10/27/23 08:59 Last Admin: 09/27/23 21:02 Dose: 10 units Documented By: DAVID Co-signed By: PRIYANK Admin: 09/27/23 08:25 Dose: 10 units Documented By: PHILIPPE Co-signed By: LIZETTE Lidocaine (Lidocaine 5% 1 Patch) 1 patch TD DAILY PRN PRN Reason: Pain Stop: 10/27/23 06:13 Last Admin: 09/27/23 10:10 Dose: 1 patch Documented By: PHILIPPE Miscellaneous (Remove Lidoderm Patch) 1 each N/A [facility] Stop: 10/27/23 20:59 Last Admin: 09/27/23 20:51 Dose: 1 each Documented By: DAVID Pantoprazole Sodium (Pantoprazole 40 Mg Tab) 40 mg PO QAM [facility] Stop: 10/27/23 08:59 Last Admin: 09/27/23 08:22 Dose: 40 mg Documented By: PHILIPPE Polyethylene Glycol (Polyethylene (Miralax) 17 Gm Pack) 17 gm PO DAILY PRN PRN Reason: constipation Stop: 10/27/23 05:30 Last Admin: 09/27/23 08:21 Dose: 17 gm Documented By: PHILIPPE Primidone (Primidone 50 Mg Tab) 100 mg PO BID [facility] Stop: 10/27/23 08:59 Last Admin: 09/27/23 20:52 Dose: 100 mg Documented By: Admin: 09/27/23 08:22 Dose: 100 mg Documented By: PHILIPPE Rosuvastatin Calcium (Rosuvastatin Calcium 20 Mg Tab) 20 mg PO [facility] Stop: 10/27/23 20:59 Last Admin: 09/27/23 20:51 Dose: 20 mg Documented By: DAVID Tamsulosin HCl (Tamsulosin Hcl 0.4 Mg Cap) 0.4 mg PO [facility] Stop: 10/27/23 20:59 Last Admin: 09/27/23 20:52 Dose: 0.4 mg Documented By: DAVID Discontinued Medications Acetaminophen (Acetaminophen 325 Mg Tab) 650 mg PO NOW STA Stop: 09/26/23 23:42 Last Admin: 09/26/23 23:52 Dose: 650 mg Documented By: BAILEE Sodium Chloride (Nss) 500 mls @ 999 mls/hr IV .Q31M [facility] Stop: 09/27/23 00:15 Last Infusion: 09/27/23 01:48 Dose: Infused Documented By: Admin: 09/26/23 23:56 Dose: 999 mls/hr Documented By: BAILEE Sodium Chloride (Nss) 500 mls @ 125 mls/hr IV .Q4H [facility] Stop: 10/27/23 02:29 Last Infusion: 09/27/23 06:53 Dose: Infused Documented By: Admin: 09/27/23 02:44 Dose: 125 mls/hr Documented By: BAILEE Piperacillin Sod/Tazobactam Sod (Zosyn) 4.5 gm in 100 mls @ 200 mls/hr IV NOW ONE Stop: 09/27/23 03:57 Last Infusion: 09/27/23 05:32 Dose: Infused Documented By: Admin: 09/27/23 03:50 Dose: 200 mls/hr Documented By: BAILEE Lactated Ringer's (Lr) 1,000 mls @ 100 mls/hr IV .Q10H [facility] Stop: 09/28/23 01:30 Last Admin: 09/27/23 06:53 Dose: Not Given Documented By: WENDY Discharge Plan Visit Data Chief Complaint: Fall Stated Complaint: FALL ED Provider: Betty Price Discharge Problem: AIXA (acute kidney injury), Acute pyelonephritis, Pneumonia Patient Disposition: Admitted As Inpatient Discharge Instructions Interventions: ED Discharge Assessment Last Done: 09/27/23 05:07 Discharge Problem: Pneumonia Qualifiers: Pneumonia type: due to unspecified organism Laterality: right Lung location: u pper lobe of lung Qualified Code(s): J18.9 - Pneumonia, unspecified organism
[2023-09-26] MEDS: ACETAMINOPHEN 325 MG TAB PO STA (23:52)
[2023-09-26 23:54] LABS: Basophils # (auto) 0.04 K/uL (0.00-0.20); Basophils % (auto) 0.6 %; Eosinophils # (auto) 0.24 K/uL (0.00-0.50); Eosinophils % (auto) 3.8 %; Hematocrit (blood only) 32.7 % (37.0-47.0); Hemoglobin 10.3 g/dl (12.0-16.0); Immature Granulocytes # (auto) 0.02 K/uL (0.01-0.20); Immature Granulocytes % (auto) 0.3 %; Lymphocytes # (auto) 1.27 K/uL (1.20-3.40); Lymphocytes % (auto) 19.9 %; Mean Corpuscular Hemoglobin 28.7 pg (25.0-34.0); Mean Corpuscular Hgb Conc 31.5 g/dL (32.0-36.0); Mean Corpuscular Volume 91.1 fL (80.0-100.0); Monocytes # (auto) 0.64 K/uL (0.11-0.59); Neutrophils # (auto) 4.16 K/uL (1.40-6.50); Neutrophils % (auto) 65.4 %; Platelet Count 201 K/uL (130-400); RDW Coefficient of Variation 14.5 % (11.5-14.5); RDW Standard Deviation 48.1 fL (36.4-46.3); Red Blood Count 3.59 M/uL (4.20-5.40); White Blood Count 6.37 K/ul (4.8-10.8)
[2023-09-26] MEDS: SODIUM CHLORIDE 0.9% 500 ML IV SCH (23:56)
[2023-09-27] LABS: Albumin Globulin Ratio 1.7 (0.9-2); Albumin Level 4.2 gm/dl (3.4-5.0); BUN Creatinine Ratio 14.2 (10-20); Bilirubin,Total 0.3 mg/dl (0.2-1.0); Calcium 10.2 mg/dl (8.6-10.3); Creatinine Clr Calc Pharmacy 21.1 ml/min; Est GFR (Non-African American) 20.7 ml/min; Globulin 2.5 gm/dl (2.5-4.0); Potassium 4.4 mmol/L (3.5-5.1); Total Protein 6.7 gm/dl (6.0-8.3)
--- NOTE | 2023-09-27 02:14 | CT Scan Report ---
Exam(s): CT CHEST Without Contrast EXAM: CT Chest Without Intravenous Contrast CLINICAL HISTORY: Trauma. TECHNIQUE: Axial computed tomography images of the chest without intravenous contrast. CTDI is 18.32 mGy and DLP is 884.78 mGy-cm. Automated exposure control was utilized for the study. A dose lowering technique was utilized adhering to the principles of ALARA. COMPARISON: Chest radiograph 05/19/2023 FINDINGS: Lungs: There is scattered subtle airspace opacities, greater of the right upper lobe. Pleural space: Unremarkable. No pneumothorax. No significant effusion. Heart: Coronary artery calcifications are present. No cardiomegaly. No significant pericardial effusion. Bones/joints: There are degenerative changes of the spine. No acute fracture. No dislocation. Soft tissues: Unremarkable. 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 Mild atherosclerotic disease. Lymph nodes: Unremarkable. No enlarged lymph nodes. Tubes, lines and devices: Bilateral deep neurostimulator is are noted. IMPRESSION: 1. There is scattered subtle airspace opacities, greater of the right upper lobe. This is concerning for atypical infection. Recommend follow- up CT in three months to ensure resolution. 2. 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 Electronically signed by: Marcy Phillips MD 09/27/23 02:13 AM
--- NOTE | 2023-09-27 02:17 | CT Scan Report ---
Exam(s): CT ABDOMEN + PELVIS Without Contrast EXAM: CT Abdomen and Pelvis Without Intravenous Contrast CLINICAL HISTORY: Trauma. TECHNIQUE: Axial computed tomography images of the abdomen and pelvis without intravenous contrast. CTDI is 16.99 mGy and DLP is 540.04 mGy-cm. Automated exposure control was utilized for the study. A dose lowering technique was utilized adhering to the principles of ALARA. COMPARISON: CT abdomen and pelvis 08/24/2023 FINDINGS: Lung bases: Unremarkable. No mass. No consolidation. ABDOMEN: Liver: Unremarkable. Gallbladder and bile ducts: Cholecystectomy. No ductal dilation. Pancreas: Unremarkable. No ductal dilation. Spleen: Unremarkable. No splenomegaly. Adrenals: Unremarkable. No mass. Kidneys and ureters: Minimal right hydronephrosis. There is a punctate nonobstructing right renal calculus. The left kidney is within normal limits. No left hydronephrosis. Stomach and bowel: Diverticulosis. No obstruction. No mucosal thickening. PELVIS: Appendix: No findings to suggest acute appendicitis. Bladder: Marked thickening of the bladder wall. No stones. Reproductive: Hysterectomy. There is a 4 cm simple appearing right adnexal cyst. ABDOMEN and PELVIS: Intraperitoneal space: Unremarkable. No free air. No significant fluid collection. Bones/joints: There are degenerative changes of the spine. No acute fracture. No dislocation. Soft tissues: Small bilateral fat-containing inguinal hernias. Vasculature: Mild atherosclerosis. No abdominal aortic aneurysm. Lymph nodes: Unremarkable. No enlarged lymph nodes. IMPRESSION: 1. Minimal right hydronephrosis. This concerning for ascending infection/acute pyonephritis as there is marked thickening of the wall of the bladder concerning for cystitis. 2. There is a punctate nonobstructing right renal calculus. 3. Diverticulosis. 4. 4 cm simple appearing cystic lesion of the right adnexa. Recommend pelvic ultrasound to better characterize this cyst. Electronically signed by: Marcy Phillips MD 09/27/23 02:16 AM
[2023-09-27] MEDS: SODIUM CHLORIDE 0.9% 500 ML IV SCH (02:44)
[2023-09-27 03:05] LABS: Appearance Urine Slightly Cloudy (Clear)
[2023-09-27 03:17] LABS: Epithelial Cell Urine 0-2 /hpf (0-2); RBC Urine 0-2 /hpf (0-2); WBC Urine >50 /hpf (0-5)
[2023-09-27 03:18] LABS: Bacteria Urine None Seen (None Seen)
[2023-09-27] MEDS: PIPERACILLIN/TAZOBACTAM 4.5 GM/100 ML BAG IV ONE (03:50)
[2023-09-27 03:59] LABS: Adenovirus PCR Not Detected (NotDetected); Bordetella parapertussis PCR Not Detected (NotDetected); Bordetella pertussis PCR Not Detected (NotDetected); Chlamydia pneumoniae PCR Not Detected (NotDetected); Coronavirus 229E PCR Not Detected (NotDetected); Coronavirus CoV-2 (COVID19)PCR Not Detected (NotDetected); Coronavirus HKU1 PCR Not Detected (NotDetected); Coronavirus NL63 PCR Not Detected (NotDetected); Coronavirus OC43PCR Not Detected (NotDetected); Human Metapneumovirus PCR Not Detected (NotDetected); Influenza A PCR Not Detected (NotDetected); Influenza B PCR Not Detected (NotDetected); Mycoplasma pneumoniae PCR Not Detected (NotDetected); Parainfluenza Virus 1 PCR Not Detected (NotDetected); Parainfluenza Virus 2 PCR Not Detected (NotDetected); Parainfluenza Virus 3 PCR Not Detected (NotDetected); Parainfluenza Virus 4 PCR Not Detected (NotDetected); Respiratory Syncytial VirusPCR Not Detected (NotDetected); Rhinovirus/Enterovirus PCR Not Detected (NotDetected)
--- NOTE | 2023-09-27 04:16 | History & Physical Report ---
Date of Service September 27, 2023 Assessment & Plan (1) Urinary tract infection: Plan: Patient afebrile, HD stable, non-toxic in appearance -Follow cultures -Zosyn -Tylenol PRN (2) Ground glass opacity present on imaging of lung: Plan: No pulmonary symptoms. Biofire panel is negative -Zosyn -Azithromycin -Tylenol PRN History of Present Illness Chief Complaint: UTI, PNA Primary Care Provider: KEILA Lopez Nadia Johnson is a pleasant 78yo female presenting with confusion. Has been on Amoxicillin at home ([facility]) for UTI. Has had increased confusion and weakness. Fell today and struck back around 20:30. Urine collected by PCP on Wednesday, started Amoxicillin on Wednesday [id number] reports patient has been "off" for a couple of weeks. Decreased oral intake. No additional complaints Allergies Allergy/AdvReac Type Severity Reaction Status Date / Time levetiracetam Allergy Intermediate Rash Verified 08/09/23 07:05 adhesive tape Allergy Mild Rash Verified 08/09/23 07:05 naproxen Allergy Mild RASH Verified 08/09/23 07:05 morphine Allergy Unknown Unknown Verified 08/09/23 07:05 sulfamethoxazole AdvReac Mild Nausea Verified 08/09/23 07:05 [From Bactrim] trimethoprim [From Bactrim] AdvReac Mild Nausea Verified 08/09/23 07:05 Home Medications Medication Instructions Recorded Confirmed Type cholecalciferol (vitamin D3) 50 2,000 unit PO QAM 09/08/18 08/30/23 History mcg (2,000 unit) tablet (Vitamin D3) cyanocobalamin (vitamin B-12) 1,000 mcg PO QAM 09/08/18 08/30/23 History 1,000 mcg tablet (Vitamin B-12) acetaminophen 325 mg tablet 650 mg PO Q4H PRN Fever Or Pain 05/13/21 08/30/23 History lidocaine 4 % topical patch 1 patch topical DAILY PRN Pain 06/03/21 08/30/23 History metformin 500 mg tablet 500 mg PO BIDM 30 days #60 tabs 07/23/22 08/30/23 Rx pen needle, diabetic 31 gauge x #100 ea 08/17/22 08/24/23 Rx 3/16" (Sure-Fine Pen [place]) multivitamin (Daily-Devin tablet) 1 tab PO QAM 09/03/22 08/30/23 History polyethylene glycol 3350 17 17 g PO DAILY PRN constipation 01/29/23 08/30/23 Rx gram/dose oral powder (Miralax) #119 grams ondansetron HCl 4 mg tablet 4 mg PO Q8H PRN nausea and 03/17/23 08/30/23 Rx vomiting #20 tabs lancets 30 gauge (Safety Seal #100 ea 05/27/23 08/24/23 Rx Lancets) pen needle, diabetic, safety 30 #100 ea 05/27/23 08/24/23 Rx gauge x 1/3" (Novofine Autocover) primidone 50 mg tablet 100 mg (2 x 50 mg) PO BID #120 tabs 05/31/23 08/30/23 Rx insulin glargine 100 unit/mL (3 28 unit (0.28 mL) subcut QPM #15 mL 06/11/23 08/30/23 Rx mL) subcutaneous pen (Lantus Solostar U-100 Insulin) ascorbic acid (vitamin C) 500 mg 500 mg PO BID 06/29/23 08/30/23 History capsule cranberry 500 mg capsule 500 mg PO QAM 06/29/23 08/30/23 History diclofenac sodium 1 % topical gel 2 g topical QID PRN pain #100 grams 06/29/23 08/30/23 Rx olopatadine 0.7 % eye drops 1 drp ophthalmic (eye) QAM 06/29/23 08/30/23 History (Pataday Once Daily Relief) blood sugar diagnostic (OneTouch #100 ea 06/30/23 08/24/23 Rx Ultra Test strips) pantoprazole 40 mg tablet,delayed 40 mg PO QAM #30 tabs 07/26/23 08/30/23 Rx release rosuvastatin 20 mg tablet 20 mg PO HS #30 tabs 07/26/23 08/30/23 Rx escitalopram oxalate 20 mg tablet 20 mg PO QAM 07/30/23 08/30/23 History famotidine 20 mg tablet 20 mg PO 2000 07/30/23 08/30/23 History tamsulosin 0.4 mg capsule 0.4 mg PO HS #30 caps 08/09/23 08/30/23 Rx oxybutynin chloride 5 mg tablet 5 mg PO Q8H PRN bladder spasms #20 08/19/23 08/30/23 Rx tabs carbidopa 25 mg-levodopa 100 mg 2 tab PO TID 30 days #180 tabs 08/20/23 08/30/23 Rx tablet dextromethorphan-guaifenesin 10 10 ml PO Q8 PRN Cough 08/24/23 08/30/23 History mg-100 mg/5 mL oral syrup (Tussin DM) diclofenac sodium 1 % topical gel 2 g topical QID PRN Pain 08/24/23 08/30/23 History fluconazole 200 mg tablet 200 mg PO DAILY 08/24/23 08/30/23 History fluticasone propionate 50 1 spray intranasal DAILY 08/24/23 08/30/23 History mcg/actuation nasal spray,suspension olopatadine 0.7 % eye drops 1 drp ophthalmic (eye) QPM PRN 08/24/23 08/30/23 History (Pataday Once Daily Relief) allergies phenazopyridine 100 mg tablet 100 mg PO TID #30 tabs 08/24/23 08/30/23 Rx (Pyridium) fluconazole 200 mg tablet 200 mg PO DAILY 2 weeks #14 tabs 09/13/23 Rx phenazopyridine 200 mg tablet 200 mg PO TID 6 doses #6 tabs 09/13/23 Rx (Pyridium) methenamine hippurate 1 gram tablet See Rx Instructions .Route 09/22/23 Rx .COMPLEX #60 tabs Past Med/Surg History Problem List Ground glass opacity present on imaging of lung Thyroid nodule Incontinence Bladder ulcer Seizure-like activity 02/[address] 02/2023- thyroid nodule- recommend thyroid u/s; pulmonary nodules- recommend six month CT follow up (PCP aware per records) Murmur Hypomagnesemia (Acute) [place] cystitis Iliotibial band syndrome, right leg Trochanteric bursitis, right hip Abdominal pain Right hip pain Ovarian cyst, right Left shoulder pain Orthostatic hypotension Recurrent infections Ataxia Osteopenia Parkinsonism Pelvic pain DM type 2 (diabetes mellitus, type 2) Varicose veins of legs Vertigo (Acute) Memory loss (Chronic) Essential tremor (07/28/13) HTN, goal below 140/90 (Chronic 03/30/17) Vitamin D deficiency (Acute) Trigeminal neuralgia (Acute) Mixed hyperlipidemia (Chronic) Insomnia (Acute) Dysphagia (Acute) No dysphagia symptoms per 06/29/23 PCP records Anxiety (Chronic) Allergic rhinitis (Acute) Depression COPD (chronic obstructive pulmonary disease) (Chronic) IBS (irritable bowel syndrome) (Chronic) Tubular adenoma of colon Medical History Diabetes Anemia Urinary tract infection Hematuria Resides in [facility] all med hx obtained from [facility] Medical Record History of vertigo Varicose veins of both lower extremities History of trigeminal neuralgia Seizure-like activity Episode of syncope/near syncope- admitted to [facility] 02/2023 (diagnosed with UTI and acute metabolic encephalopathy) EEG 02/2023 WNL Parkinsonism Osteopenia History of orthostatic hypotension Hyperlipemia Memory loss Cognitive changes felt related to age per neurology Iliotibial band syndrome affecting right lower leg Insomnia Incontinence IBS (irritable bowel syndrome) Hypertension Essential tremor s/p bilateral DBS placement 2013 R>L hand per neuro records Diabetes mellitus, type 2 Heart murmur No significant heart valve disease per 02/2023 ECHO Depression COPD (chronic obstructive pulmonary disease) ? per [place] record, pt not on any oxygen or inhalers Bladder ulcer Following with urology Ataxia Per daughter in law- patient can usually ambulate with walker- occ will need wheelchair Anxiety History of falling Coccygeal fracture hx of Nausea Constipation Recurrent urinary tract infection Follows with ID and urology Sensorineural hearing loss (SNHL) of both ears GERD (gastroesophageal reflux disease) resolved, off PPI Surgical History Status post tubal ligation S/P sinus surgery S/P cholecystectomy S/P deep brain stimulator placement (08/20/16) Family History Father Cancer Mother Depression Hypertension Stroke Grandmother Breast cancer Mother Myocardial infarction Other Family history unknown Denies family history of Ovarian cancer Prostate cancer Colorectal cancer Social History Smoking Status: Former smoker Second Hand Exposure: No; Hx Alcohol Use: No Hx Substance Use: No Preferred Language: Cuban Communication Ability: Effective Classified Ad Taker Required: No Beliefs That Will Affect Care: None marital status: / Current Living Situation: Personal Care Facility Current Living Situation Comment: resides at [facility] current occupational status: retired How many Children do You have: 3 Feels Safe at Home: Yes Childhood Exposure to Second-Hand Smoke: Yes Diet: regular caffeine: Yes Dental Care, Regularly: No Physical Activity Frequency: Does not Exercise Seatbelt Use: always Sunscreen Use: No Assistive Devices: Denture - Upper, Denture - Lower and Walker Review of Systems Review of Systems: All systems reviewed & are unremarkable except as noted in HPI & below Physical Exam Physical Exam: General: patient resting comfortably, NAD, non-toxic in appearance Skin: warm, dry, intact, no rashes or lesions HEENT: NC/AT, PERRL, EOMI, anicteric sclera, conjunctiva without injection, external ear normal to inspection and nontender, nares patent, moist mucus membranes, dentition intact, no oropharyngeal lesions, neck supple, trachea mi dline, no LAD, no thyromegaly, no JVD Heart: +S1/S2, regular, no m/r/g Lungs: equal air entry bilaterally, no rales/rhonchi/wheezes Abd: +BS, soft, NT/ND, no masses/organomegaly/ascites Ext: warm, 2+ pulses in UE/LE bilaterally, no clubbing/cyanosis or edema Neuro: nonfocal, patient AA&O x 4, speech intact, no facial droop, moving all extremities on command with equal strength 5/5 Results & Data Results & Data Vital Signs (Past 12 Hours) Vital Signs Temp Pulse Resp BP Pulse Ox O2 Del Method 09/27/23 02:48 55 L 09/27/23 01:51 56 L 15 96 09/27/23 01:45 55 L 16 97 09/27/23 01:30 126/59 L 09/27/23 01:30 126/59 L 09/27/23 01:21 57 L 16 95 09/27/23 01:03 56 L 15 96 09/27/23 01:00 129/63 09/27/23 01:00 129/63 09/27/23 01:00 129/63 09/27/23 00:51 56 L 15 97 09/27/23 00:48 57 L 15 95 09/26/23 23:48 58 L 18 95 09/26/23 23:41 Room Air 09/26/23 23:39 59 L 19 95 09/26/23 23:30 114/55 L 09/26/23 23:12 56 L 16 94 09/26/23 23:03 57 L 19 95 09/26/23 23:00 113/55 L 09/26/23 22:57 56 L 17 94 09/26/23 22:45 58 L 17 94 09/26/23 22:39 58 L 16 93 09/26/23 22:32 60 09/26/23 22:30 128/57 L 09/26/23 22:30 128/57 L 09/26/23 22:28 36.7 C 63 13 95/71 L 94 Room Air 09/26/23 22:24 95/71 L Laboratory Results Laboratory Results WBC 6.37 K/ul (4.8-10.8) 09/26/23 22:30 RBC 3.59 M/uL (4.20-5.40) L 09/26/23 22:30 Hgb 10.3 g/dl (12.0-16.0) L 09/26/23 22:30 Hct 32.7 % (37.0-47.0) L 09/26/23 22:30 MCV 91.1 fL (80.0-100.0) 09/26/23 22:30 MCH 28.7 pg (25.0-34.0) 09/26/23 22:30 MCHC 31.5 g/dL (32.0-36.0) L 09/26/23 22:30 RDW Std Deviation 48.1 fL (36.4-46.3) H 09/26/23 22:30 RDW Coeff of Sunitha 14.5 % (11.5-14.5) 09/26/23 22:30 Plt Count 201 K/uL (130-400) 09/26/23 22:30 MPV 11.0 fL (9.4-12.4) 09/26/23 22:30 Immature Gran % (Auto) 0.3 % 09/26/23 22:30 Neut % (Auto) 65.4 % 09/26/23 22:30 Lymph % (Auto) 19.9 % 09/26/23 22:30 [place] % (Auto) 10.0 % 09/26/23 22:30 Eos % (Auto) 3.8 % 09/26/23 22:30 Baso % (Auto) 0.6 % 09/26/23 22:30 Neut # (Auto) 4.16 K/uL (1.40-6.50) 09/26/23 22:30 Lymph # (Auto) 1.27 K/uL (1.20-3.40) 09/26/23 22:30 [place] # (Auto) 0.64 K/uL (0.11-0.59) H 09/26/23 22:30 Eos # (Auto) 0.24 K/uL (0.00-0.50) 09/26/23 22:30 Baso # (Auto) 0.04 K/uL (0.00-0.20) 09/26/23 22:30 Immature Gran # (Auto) 0.02 K/uL (0.01-0.20) 09/26/23 22:30 Sodium 138 mmol/L (136-145) 09/26/23 22:30 Potassium 4.4 mmol/L (3.5-5.1) 09/26/23 22:30 Chloride 108 mmol/L (98-107) H 09/26/23 22:30 Carbon Dioxide 19 mmol/L (21-32) L 09/26/23 22:30 Anion Gap 11 (3-11) 09/26/23 22:30 BUN 31 mg/dl (6-23) H 09/26/23 22:30 Creatinine 2.18 mg/dl (0.6-1.2) H 09/26/23 22:30 Est Cr Clr Drug Dosing 21.1 ml/min 09/26/23 22:30 Est GFR ( Amer) 24.0 ml/min 09/26/23 22:30 Est GFR (Non-Af Amer) 20.7 ml/min 09/26/23 22:30 BUN/Creatinine Ratio 14.2 (10-20) 09/26/23 22:30 Glucose 133 mg/dl (70-99(Fasting)) H 09/26/23 22:30 Calcium 10.2 mg/dl (8.6-10.3) 09/26/23 22:30 Total Bilirubin 0.3 mg/dl (0.2-1.0) 09/26/23 22:30 AST 8 U/L (13-39) L 09/26/23 22:30 ALT 10 U/L (7-52) 09/26/23 22:30 Alkaline Phosphatase 58 U/L (34-104) 09/26/23 22:30 Total Protein 6.7 gm/dl (6.0-8.3) 09/26/23 22:30 Albumin 4.2 gm/dl (3.4-5.0) 09/26/23 22:30 Globulin 2.5 gm/dl (2.5-4.0) 09/26/23 22:30 Albumin/Globulin Ratio 1.7 (0.9-2) 09/26/23 22:30 Urine Color See Comment 09/27/23 02:45 Urine Appearance Slightly Cloudy (Clear) 09/27/23 02:45 Urine pH Not Reportable 09/27/23 02:45 Ur Specific [place] 1.020 (1.000-1.030) 09/27/23 02:45 Urine Protein Not Reportable 09/27/23 02:45 Urine Glucose (UA) Not Reportable 09/27/23 02:45 Urine Ketones Not Reportable 09/27/23 02:45 Urine Blood Not Reportable 09/27/23 02:45 Urine Nitrite Not Reportable 09/27/23 02:45 Urine Bilirubin Not Reportable 09/27/23 02:45 Urine Urobilinogen Not Reportable 09/27/23 02:45 Ur Leukocyte Esterase Not Reportable 09/27/23 02:45 Urine RBC 0-2 /hpf (0-2) 09/27/23 02:45 Urine WBC >50 /hpf (0-5) H 09/27/23 02:45 Ur Epithelial Cells 0-2 /hpf (0-2) 09/27/23 02:45 Urine Bacteria None Seen (None Seen) 09/27/23 02:45 Adenovirus (PCR) Not Detected (NotDetected) 09/27/23 02:45 B. pertussis DNA (PCR) Not Detected (NotDetected) 09/27/23 02:45 B.parapertussis DNA PCR Not Detected (NotDetected) 09/27/23 02:45 C. pneumoniae DNA (PCR) Not Detected (NotDetected) 09/27/23 02:45 Coronavirus OC43 (PCR) Not Detected (NotDetected) 09/27/23 02:45 Coronavirus HKU1 (PCR) Not Detected (NotDetected) 09/27/23 02:45 Coronavirus 229E (PCR) Not Detected (NotDetected) 09/27/23 02:45 SARS-CoV-2 (PCR) Not Detected (NotDetected) 09/27/23 02:45 Coronavirus NL63 (PCR) Not Detected (NotDetected) 09/27/23 02:45 Human Metapneumovir PCR Not Detected (NotDetected) 09/27/23 02:45 Influenza Type A (PCR) Not Detected (NotDetected) 09/27/23 02:45 Influenza Type B (PCR) Not Detected (NotDetected) 09/27/23 02:45 M. pneumoniae (PCR) Not Detected (NotDetected) 09/27/23 02:45 Parainfluenza 1 (PCR) Not Detected (NotDetected) 09/27/23 02:45 Parainfluenza 2 (PCR) Not Detected (NotDetected) 09/27/23 02:45 Parainfluenza 3 (PCR) Not Detected (NotDetected) 09/27/23 02:45 Parainfluenza 4 (PCR) Not Detected (NotDetected) 09/27/23 02:45 RSV (PCR) Not Detected (NotDetected) 09/27/23 02:45 Entero/Rhino (PCR) Not Detected (NotDetected) 09/27/23 02:45 Impressions Abdomen/Pelvis CT 09/26/23 23:42 Exam(s): CT ABDOMEN + PELVIS Without Contrast EXAM: CT Abdomen and Pelvis Without Intravenous Contrast CLINICAL HISTORY: Trauma. TECHNIQUE: Axial computed tomography images of the abdomen and pelvis without intravenous contrast. CTDI is 16.99 mGy and DLP is 540.04 mGy-cm. Automated exposure control was utilized for the study. A dose lowering technique was utilized adhering to the principles of ALARA. COMPARISON: CT abdomen and pelvis 08/24/2023 FINDINGS: Lung bases: Unremarkable. No mass. No consolidation. ABDOMEN: Liver: Unremarkable. Gallbladder and bile ducts: Cholecystectomy. No ductal dilation. Pancreas: Unremarkable. No ductal dilation. Spleen: Unremarkable. No splenomegaly. Adrenals: Unremarkable. No mass. Kidneys and ureters: Minimal right hydronephrosis. There is a punctate nonobstructing right renal calculus. The left kidney is within normal limits. No left hydronephrosis. Stomach and bowel: Diverticulosis. No obstruction. No mucosal thickening. PELVIS: Appendix: No findings to suggest acute appendicitis. Bladder: Marked thickening of the bladder wall. No stones. Reproductive: Hysterectomy. There is a 4 cm simple appearing right adnexal cyst. ABDOMEN and PELVIS: Intraperitoneal space: Unremarkable. No free air. No significant fluid collection. Bones/joints: There are degenerative changes of the spine. No acute fracture. No dislocation. Soft tissues: Small bilateral fat-containing inguinal hernias. Vasculature: Mild atherosclerosis. No abdominal aortic aneurysm. Lymph nodes: Unremarkable. No enlarged lymph nodes. IMPRESSION: 1. Minimal right hydronephrosis. This concerning for ascending infection/acute pyonephritis as there is marked thickening of the wall of the bladder concerning for cystitis. 2. There is a punctate nonobstructing right renal calculus. 3. Diverticulosis. 4. 4 cm simple appearing cystic lesion of the right adnexa. Recommend pelvic ultrasound to better characterize this cyst. Electronically signed by: Marcy Phillips MD 09/27/23 02:[address] 09/26/23 23:42 Exam(s): CT CHEST Without Contrast EXAM: CT Chest Without Intravenous Contrast CLINICAL HISTORY: Trauma. TECHNIQUE: Axial computed tomography images of the chest without intravenous contrast. CTDI is 18.32 mGy and DLP is 884.78 mGy-cm. Automated exposure control was utilized for the study. A dose lowering technique was utilized adhering to the principles of ALARA. COMPARISON: Chest radiograph 05/19/2023 FINDINGS: Lungs: There is scattered subtle airspace opacities, greater of the right upper lobe. Pleural space: Unremarkable. No pneumothorax. No significant effusion. Heart: Coronary artery calcifications are present. No cardiomegaly. No significant pericardial effusion. Bones/joints: There are degenerative changes of the spine. No acute fracture. No dislocation. Soft tissues: Unremarkable. 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 Mild atherosclerotic disease. Lymph nodes: Unremarkable. No enlarged lymph nodes. Tubes, lines and devices: Bilateral deep neurostimulator is are noted. IMPRESSION: 1. There is scattered subtle airspace opacities, greater of the right upper lobe. This is concerning for atypical infection. Recommend follow- up CT in three months to ensure resolution. 2. 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 Electronically signed by: Marcy Phillips MD 09/27/23 02:13 AM PG Care Time/CCT Total # of Minutes Spent Total Time Spent with Patient: Total time spent is greater than 50% in coordination of care (as documented) at patient's floor/unit and/or counseling patient: Coding Level of Care Code 31275 INT INP/OBS CARE 2/55MIN Diagnoses Urinary tract infection N39.0; R31.9 Hematuria presence: with hematuria Urinary tract infection type: site unspecified Ground glass opacity present on imaging of lung R91.8 (1) Urinary tract infection Hematuria presence: with hematuria Urinary tract infection type: site unspecified Qualified Code(s): N39.0 - Urinary tract infection, site not specified; R31.9 - Hematuria, unspecified
[2023-09-27] MEDS ORDERED: GLUCAGON FOR INJ 1 MG VIAL SQ PRN (05:31)
[2023-09-27] MEDS ORDERED: GLUCOSE 10 TAB/TUBE PO PRN (05:31)
[2023-09-27] MEDS ORDERED: DEXTROSE 50% 50 ML SYRINGE IV PRN (05:31)
[2023-09-27] MEDS ORDERED: CARBOHYDRATES FOR HYPOGLYCEMIA PO PRN (05:31)
[2023-09-27] MEDS ORDERED: GLUCOSE 40% GEL 15 GM TUBE PO PRN (05:31)
[2023-09-27] MEDS ORDERED: DICLOFENAC SOD 1% GEL 100 GM TUBE EXT PRN (05:31)
[2023-09-27] MEDS ORDERED: ONDANSETRON INJ 2 MG/ML 2 ML VIAL IV PRN (05:31)
[2023-09-27] MEDS: LACTATED RINGER'S 1,000 ML IV SCH (06:53)
[2023-09-27] MEDS: SODIUM CHLORIDE 0.9% 1,000 ML IV SCH (06:55)
[2023-09-27] MEDS: POLYETHYLENE (MIRALAX) 17 GM PACK PO PRN (08:21)
[2023-09-27] MEDS: ACETAMINOPHEN 325 MG TAB PO PRN (08:21)
[2023-09-27] MEDS: ESCITALOPRAM OXALATE 20 MG TAB PO SCH (08:22)
[2023-09-27] MEDS: PANTOprazole 40 MG TAB PO SCH (08:22)
[2023-09-27] MEDS: FLUTICASONE PROPIONATE NA SPR 16 GM BTL SCH (08:22)
[2023-09-27] MEDS: CARBIDOPA/LEVODOPA 25/100MG TAB PO SCH (08:22)
[2023-09-27] MEDS: PRIMIDONE 50 MG TAB PO SCH (08:22)
[2023-09-27] MEDS: INSULIN ASPART PER UNIT CHARGE SC SCH (08:24)
[2023-09-27] MEDS: LANTUS PER UNIT CHARGE SQ SCH (08:25)
[2023-09-27] MEDS: LIDOCAINE 5% 1 PATCH TD PRN (10:10)
[2023-09-27] MEDS: PIPERACILLIN/TAZOBACTAM 4.5 GM in DEXTROSE 5% MINI-B 100 ML IV SCH (10:11)
[2023-09-27] MEDS: DICLOFENAC SOD 1% GEL 100 GM TUBE EXT PRN (14:40)
[2023-09-27] MEDS: FAMOTIDINE 20 MG TAB PO SCH (20:51)
[2023-09-27] MEDS: ROSUVASTATIN CALCIUM 20 MG TAB PO SCH (20:51)
[2023-09-27] MEDS: TAMSULOSIN HCL 0.4 MG CAP PO SCH (20:52)
[2023-09-28 10:50] LABS: Basophils # (auto) 0.02 K/uL (0.00-0.20); Basophils % (auto) 0.4 %; Eosinophils # (auto) 0.28 K/uL (0.00-0.50); Eosinophils % (auto) 5.7 %; Hematocrit (blood only) 32.3 % (37.0-47.0); Hemoglobin 10.2 g/dl (12.0-16.0); Immature Granulocytes # (auto) 0.01 K/uL (0.01-0.20); Immature Granulocytes % (auto) 0.2 %; Lymphocytes # (auto) 0.81 K/uL (1.20-3.40); Lymphocytes % (auto) 16.4 %; Mean Corpuscular Hemoglobin 28.8 pg (25.0-34.0); Mean Corpuscular Hgb Conc 31.6 g/dL (32.0-36.0); Mean Corpuscular Volume 91.2 fL (80.0-100.0); Mean Platelet Volume 10.5 fL (9.4-12.4); Monocytes # (auto) 0.39 K/uL (0.11-0.59); Monocytes % (auto) 7.9 %; Neutrophils # (auto) 3.43 K/uL (1.40-6.50); Neutrophils % (auto) 69.4 %; Platelet Count 156 K/uL (130-400); RDW Coefficient of Variation 14.4 % (11.5-14.5); RDW Standard Deviation 48.3 fL (36.4-46.3); Red Blood Count 3.54 M/uL (4.20-5.40); White Blood Count 4.94 K/ul (4.8-10.8)
[2023-09-28 11:11] LABS: Calcium 8.9 mg/dl (8.6-10.3); Creatinine Clr Calc Pharmacy 34.8 ml/min; Est GFR (African American) 43.6 ml/min; Est GFR (Non-African American) 37.7 ml/min; Potassium 4.1 mmol/L (3.5-5.1)
[2023-09-28] MEDS ORDERED: Nursing to Pharmacy Communication SCH (17:45)
--- NOTE | 2023-09-28 21:19 | Hospitalist Progress Note ---
Date of Service September 28, 2023 Assessment & Plan (1) Urinary tract infection: Plan: Patient afebrile, HD stable, non-toxic in appearance -Follow cultures -will continue Zosyn -Tylenol PRN If patient continues to do well, will transition to PO antibiotics (2) Ground glass opacity present on imaging of lung: Plan: No pulmonary symptoms. Biofire panel is negative -Zosyn -Azithromycin -Tylenol PRN Admission and Anticipated Discharge Date Admission Date: September 27, 2023 Subjective 78 yo female reports no new symptoms. Patient confused, but able to calm down quickly. Review of Systems Review of Systems: All systems reviewed & are unremarkable except as noted in HPI & below Physical Exam Physical Exam: General: patient resting comfortably, NAD, non-toxic in appearance Skin: warm, dry, intact, no rashes or lesions HEENT: NC/AT, PERRL, EOMI Heart: +S1/S2, regular, no m/r/g Lungs: equal air entry bilaterally, no rales/rhonchi/wheezes Abd: +BS, soft, NT/ND, no masses/organomegaly/ascites Ext: warm, 2+ pulses in UE/LE bilaterally, no clubbing/cyanosis or edema Results & Data Results & Data Vital Signs (Past 12 Hours) Vital Signs Temp Pulse Resp BP BP Pulse Ox O2 Del Method 09/28/23 19:30 36.5 C 65 16 157/77 H 96 Room Air 09/28/23 14:01 36.5 C 61 16 154/67 H 99 Room Air PG Care Time/CCT Total # of Minutes Spent Total Time Spent with Patient: Total time spent is greater than 50% in coordination of care (as documented) at patient's floor/unit and/or counseling patient: Coding Level of Care Code 05143 SUB INP/OBS CARE 2/35MIN Diagnoses Urinary tract infection N39.0; R31.9 Hematuria presence: with hematuria Urinary tract infection type: site unspecified Ground glass opacity present on imaging of lung R91.8 (1) Urinary tract infection Hematuria presence: with hematuria Urinary tract infection type: site unspecified Qualified Code(s): N39.0 - Urinary tract infection, site not specified; R31.9 - Hematuria, unspecified
[2023-09-29 08:02] LABS: Hematocrit (blood only) 31.7 % (37.0-47.0); Hemoglobin 10.1 g/dl (12.0-16.0); Mean Corpuscular Hemoglobin 28.6 pg (25.0-34.0); Mean Corpuscular Hgb Conc 31.9 g/dL (32.0-36.0); Mean Corpuscular Volume 89.8 fL (80.0-100.0); Mean Platelet Volume 10.5 fL (9.4-12.4); Platelet Count 151 K/uL (130-400); RDW Coefficient of Variation 14.6 % (11.5-14.5); RDW Standard Deviation 47.8 fL (36.4-46.3); Red Blood Count 3.53 M/uL (4.20-5.40); White Blood Count 5.17 K/ul (4.8-10.8)
[2023-09-29 08:16] LABS: BUN Creatinine Ratio 10.9 (10-20); C Reactive Protein 0.79 mg/dl (0-0.5); Calcium 8.7 mg/dl (8.6-10.3); Creatinine Clr Calc Pharmacy 42.1 ml/min; Est GFR (African American) 54.9 ml/min; Est GFR (Non-African American) 47.4 ml/min; Potassium 3.6 mmol/L (3.5-5.1)
--- NOTE | 2023-09-29 20:42 | Hospitalist Progress Note ---
Date of Service September 29, 2023 Assessment & Plan (1) Urinary tract infection: Plan: Patient afebrile, HD stable, non-toxic in appearance -Follow cultures -will continue Zosyn for at least 3 days. -Tylenol PRN If patient continues to do well, will transition to PO antibiotics on 09/29 (2) Ground glass opacity present on imaging of lung: Plan: No pulmonary symptoms. Biofire panel is negative -Zosyn -Azithromycin -Tylenol PRN Metabolic encephalopathy Presented with altered mental status. Cr 2.18 with baseline of 0.62-0.92 since Feb 2023 Treatment: serial BMP's, 500 cc NSS bolus then continuous fluids, IV zosyn Patient appears more calm. 2.) Acute kidney failure, POA : Pt presented with increasing confusion. Cr 2.18 with a baseline of 0.62-0.92 since Feb 2023 Treatment: serial BMP's, 500 cc NSS bolus then continuous fluids Creatinine appears to have resolved. Admission and Anticipated Discharge Date Admission Date: September 27, 2023 Subjective Patient is confused. Family is at bedside and updated. Review of Systems Review of Systems: All systems reviewed & are unremarkable except as noted in HPI & below Physical Exam Physical Exam: General: patient resting comfortably, NAD, non-toxic in appearance Skin: warm, dry, intact, no rashes or lesions HEENT: NC/AT, PERRL, EOMI Heart: +S1/S2, regular, no m/r/g Lungs: equal air entry bilaterally, no rales/rhonchi/wheezes Abd: +BS, soft, NT/ND, no masses/organomegaly/ascites Ext: warm, 2+ pulses in UE/LE bilaterally, no clubbing/cyanosis or edema Results & Data Results & Data Vital Signs (Past 12 Hours) Vital Signs Temp Pulse Pulse Resp BP Pulse Ox O2 Del Method 09/29/23 20:07 36.4 C L 68 16 170/81 H 96 Room Air 09/29/23 13:07 36.5 C 63 15 152/77 H 97 Room Air PG Care Time/CCT Total # of Minutes Spent Total Time Spent with Patient: Total time spent is greater than 50% in coordination of care (as documented) at patient's floor/unit and/or counseling patient: Coding Level of Care Code 70258 SUB INP/OBS CARE 2/35MIN Diagnoses Urinary tract infection N39.0; R31.9 Hematuria presence: with hematuria Urinary tract infection type: site unspecified Ground glass opacity present on imaging of lung R91.8 (1) Urinary tract infection Hematuria presence: with hematuria Urinary tract infection type: site unspecified Qualified Code(s): N39.0 - Urinary tract infection, site not specified; R31.9 - Hematuria, unspecified
[2023-09-30 07:07] LABS: BUN Creatinine Ratio 7.5 (10-20); Calcium 8.5 mg/dl (8.6-10.3); Creatinine Clr Calc Pharmacy 43.7 ml/min; Est GFR (African American) 57.4 ml/min; Est GFR (Non-African American) 49.6 ml/min; Potassium 3.4 mmol/L (3.5-5.1)
[2023-09-30] MEDS: ADVANCED PROBIOTIC 625 MG CAPSULE PO SCH (18:17)
[2023-09-30] MEDS: OLANZapine 10 MG/2.1 ML SDV IM STA (20:18)
--- NOTE | 2023-09-30 22:45 | Hospitalist Progress Note ---
Date of Service September 30, 2023 Assessment & Plan (1) Urinary tract infection: Plan: Patient afebrile, HD stable, non-toxic in appearance -Follow cultures -will continue Zosyn for at least 3 days. -Tylenol PRN -maintian on current antibiotics (2) Ground glass opacity present on imaging of lung: Plan: No pulmonary symptoms. Biofire panel is negative -Zosyn -Azithromycin -Tylenol PRN Metabolic encephalopathy Presented with altered mental status. Cr 2.18 with baseline of 0.62-0.92 since Feb 2023 Treatment: serial BMP's, 500 cc NSS bolus then continuous fluids, IV zosyn Patient appears more calm. 2.) Acute kidney failure, POA : Pt presented with increasing confusion. Cr 2.18 with a baseline of 0.62-0.92 since Feb 2023 Treatment: serial BMP's, 500 cc NSS bolus then continuous fluids Creatinine appears to have resolved. Admission and Anticipated Discharge Date Admission Date: September 27, 2023 Subjective 78 yo female appears less confused today. Family at bedside and are updated. Review of Systems Review of Systems: All systems reviewed & are unremarkable except as noted in HPI & below Physical Exam Physical Exam: General: patient resting comfortably, NAD, non-toxic in appearance Skin: warm, dry, intact, no rashes or lesions HEENT: NC/AT, PERRL, EOMI Heart: +S1/S2, regular, no m/r/g Lungs: equal air entry bilaterally, no rales/rhonchi/wheezes Abd: +BS, soft, NT/ND, no masses/organomegaly/ascites Ext: warm, 2+ pulses in UE/LE bilaterally, no clubbing/cyanosis or edema Results & Data Results & Data Vital Signs (Past 12 Hours) Vital Signs Temp Pulse Resp BP Pulse Ox O2 Del Method 09/30/23 14:04 37.0 C 71 16 145/76 H 97 Room Air PG Care Time/CCT Total # of Minutes Spent Total Time Spent with Patient: Total time spent is greater than 50% in coordination of care (as documented) at patient's floor/unit and/or counseling patient: Coding Level of Care Code 64307 SUB INP/OBS CARE 2/35MIN Diagnoses Urinary tract infection N39.0; R31.9 Hematuria presence: with hematuria Urinary tract infection type: site unspecified Ground glass opacity present on imaging of lung R91.8 (1) Urinary tract infection Hematuria presence: with hematuria Urinary tract infection type: site unspecified Qualified Code(s): N39.0 - Urinary tract infection, site not specified; R31.9 - Hematuria, unspecified
[2023-10-01 09:01] LABS: Hematocrit (blood only) 32.1 % (37.0-47.0); Hemoglobin 10.4 g/dl (12.0-16.0); Mean Corpuscular Hgb Conc 32.4 g/dL (32.0-36.0); Mean Corpuscular Volume 89.4 fL (80.0-100.0); Mean Platelet Volume 10.4 fL (9.4-12.4); Platelet Count 139 K/uL (130-400); RDW Coefficient of Variation 14.6 % (11.5-14.5); RDW Standard Deviation 46.8 fL (36.4-46.3); Red Blood Count 3.59 M/uL (4.20-5.40); White Blood Count 5.64 K/ul (4.8-10.8)
[2023-10-01 09:15] LABS: Calcium 8.4 mg/dl (8.6-10.3); Potassium 2.9 mmol/L (3.5-5.1)
[2023-10-01 09:20] LABS: BUN Creatinine Ratio 6.6 (10-20); Creatinine Clr Calc Pharmacy 50.9 ml/min; Est GFR (African American) 69.1 ml/min; Est GFR (Non-African American) 59.6 ml/min
[2023-10-01] MEDS: POTASSIUM CHLORIDE IV SCH (16:05)
[2023-10-01] MEDS: [UNRECOGNIZED DRUG - OTHER] IV SCH (16:05)
[2023-10-01] MEDS: D5W IV SCH (16:05)
[2023-10-01] MEDS: POTASSIUM CHLORIDE / WTR 10 MEQ/100 ML PLCT IV SCH (16:07)
--- NOTE | 2023-10-01 22:06 | Hospitalist Progress Note ---
Date of Service October 01, 2023 Assessment & Plan (1) Urinary tract infection: Plan: Patient afebrile, HD stable, non-toxic in appearance -Follow cultures -will continue Zosyn for at least 3 days. -Tylenol PRN -maintian on current antibiotics (2) Ground glass opacity present on imaging of lung: Plan: No pulmonary symptoms. Biofire panel is negative -Zosyn -Azithromycin -Tylenol PRN Metabolic encephalopathy Presented with altered mental status. Cr 2.18 with baseline of 0.62-0.92 since Feb 2023 Treatment: serial BMP's, 500 cc NSS bolus then continuous fluids, IV zosyn Patient appears more calm. Likely from [facility]IX[facility]. 2.) Acute kidney failure, POA : Pt presented with increasing confusion. Cr 2.18 with a baseline of 0.62-0.92 since Feb 2023 Treatment: serial BMP's, 500 cc NSS bolus then continuous fluids Creatinine appears to have resolved. Admission and Anticipated Discharge Date Admission Date: September 27, 2023 Subjective 78 yo female was confused overnight and she required zyprexa. Review of Systems Review of Systems: All systems reviewed & are unremarkable except as noted in HPI & below Physical Exam Physical Exam: General: patient resting comfortably, NAD, non-toxic in appearance Skin: warm, dry, intact, no rashes or lesions HEENT: NC/AT, PERRL, EOMI Heart: +S1/S2, regular, no m/r/g Lungs: equal air entry bilaterally, no rales/rhonchi/wheezes Abd: +BS, soft, NT/ND, no masses/organomegaly/ascites Ext: warm, 2+ pulses in UE/LE bilaterally, no clubbing/cyanosis or edema Results & Data Results & Data Vital Signs (Past 12 Hours) Vital Signs Temp Pulse Pulse Resp BP Pulse Ox O2 Del Method 10/01/23 20:39 36.5 C 66 14 173/74 H 97 Room Air 10/01/23 18:26 36.6 C 64 16 169/76 H 98 Room Air PG Care Time/CCT Total # of Minutes Spent Total Time Spent with Patient: Total time spent is greater than 50% in coordination of care (as documented) at patient's floor/unit and/or counseling patient: Coding Level of Care Code 70506 SUB INP/OBS CARE 2/35MIN Diagnoses Urinary tract infection N39.0; R31.9 Hematuria presence: with hematuria Urinary tract infection type: site unspecified Ground glass opacity present on imaging of lung R91.8 (1) Urinary tract infection Hematuria presence: with hematuria Urinary tract infection type: site unspecified Qualified Code(s): N39.0 - Urinary tract infection, site not specified; R31.9 - Hematuria, unspecified
[2023-10-02 06:38] LABS: Hematocrit (blood only) 30.4 % (37.0-47.0); Hemoglobin 10.1 g/dl (12.0-16.0); Mean Corpuscular Hemoglobin 29.2 pg (25.0-34.0); Mean Corpuscular Hgb Conc 33.2 g/dL (32.0-36.0); Mean Corpuscular Volume 87.9 fL (80.0-100.0); Mean Platelet Volume 10.2 fL (9.4-12.4); Platelet Count 151 K/uL (130-400); RDW Coefficient of Variation 14.5 % (11.5-14.5); RDW Standard Deviation 45.9 fL (36.4-46.3); Red Blood Count 3.46 M/uL (4.20-5.40)
[2023-10-02 07:06] LABS: BUN Creatinine Ratio 7.2 (10-20); Calcium 8.3 mg/dl (8.6-10.3); Creatinine Clr Calc Pharmacy 47.8 ml/min; Est GFR (African American) 63.9 ml/min; Est GFR (Non-African American) 55.2 ml/min; Potassium 3.1 mmol/L (3.5-5.1)
--- NOTE | 2023-10-02 22:59 | Hospitalist Progress Note ---
Date of Service October 02, 2023 Assessment & Plan (1) Urinary tract infection: Plan: Patient afebrile, HD stable, non-toxic in appearance -Follow cultures -completed Zosyn for 5 days. -Tylenol PRN (2) Ground glass opacity present on imaging of lung: Plan: No pulmonary symptoms. Biofire panel is negative -Zosyn -Azithromycin -Tylenol PRN Metabolic encephalopathy Presented with altered mental status. Cr 2.18 with baseline of 0.62-0.92 since Feb 2023 Treatment: serial BMP's, 500 cc NSS bolus then continuous fluids, IV zosyn Patient appears more calm. Likely from AIXA. Appears to have resolved. 2.) Acute kidney failure, POA : Pt presented with increasing confusion. Cr 2.18 with a baseline of 0.62-0.92 since Feb 2023 Treatment: serial BMP's, 500 cc NSS bolus then continuous fluids Creatinine appears to have resolved. Admission and Anticipated Discharge Date Admission Date: September 27, 2023 Subjective 78 yo female reports no new symptoms. Review of Systems Review of Systems: All systems reviewed & are unremarkable except as noted in HPI & below Physical Exam Physical Exam: General: patient resting comfortably, NAD, non-toxic in appearance Skin: warm, dry, intact, no rashes or lesions HEENT: NC/AT, PERRL, EOMI Heart: +S1/S2, regular, no m/r/g Lungs: equal air entry bilaterally, no rales/rhonchi/wheezes Abd: +BS, soft, NT/ND, no masses/organomegaly/ascites Ext: warm, 2+ pulses in UE/LE bilaterally, no clubbing/cyanosis or edema Results & Data Results & Data Vital Signs (Past 12 Hours) Vital Signs Temp Pulse Resp BP Pulse Ox O2 Del Method 10/02/23 14:44 36.7 C 68 15 151/76 H 98 Room Air PG Care Time/CCT Total # of Minutes Spent Total Time Spent with Patient: Total time spent is greater than 50% in coordination of care (as documented) at patient's floor/unit and/or counseling patient: Coding Level of Care Code 80036 SUB INP/OBS CARE 2/35MIN Diagnoses Urinary tract infection N39.0; R31.9 Hematuria presence: with hematuria Urinary tract infection type: site unspecified Ground glass opacity present on imaging of lung R91.8 (1) Urinary tract infection Hematuria presence: with hematuria Urinary tract infection type: site unspecified Qualified Code(s): N39.0 - Urinary tract infection, site not specified; R31.9 - Hematuria, unspecified
[2023-10-02 23:30] VITALS: RESP 18
[2023-10-03 07:05] LABS: BUN Creatinine Ratio 6.5 (10-20); Calcium 8.5 mg/dl (8.6-10.3); Creatinine Clr Calc Pharmacy 60.2 ml/min; Est GFR (African American) 84.5 ml/min; Est GFR (Non-African American) 72.9 ml/min
[2023-10-03 07:31] VITALS: TEMP 97.9; O2SAT 98
--- NOTE | 2023-10-03 12:41 | Discharge Summary ---
Discharge Summary Date of Service October 03, 2023 Principal Dx & Hospital Course #1 = Principal Diagnosis (1) Urinary tract infection: Patient afebrile, HD stable, non-toxic in appearance -Follow cultures -completed Zosyn for 5 days. -Tylenol PRN (2) Ground glass opacity present on imaging of lung: No pulmonary symptoms. Biofire panel is negative -Zosyn -Azithromycin -Tylenol PRN Metabolic encephalopathy Presented with altered mental status. Cr 2.18 with baseline of 0.62-0.92 since Feb 2023 Treatment: serial BMP's, 500 cc NSS bolus then continuous fluids, IV zosyn Patient appears more calm. Likely from AIXA. Appears to have resolved. 2.) Acute kidney failure, POA : Pt presented with increasing confusion. Cr 2.18 with a baseline of 0.62-0.92 since Feb 2023 Treatment: serial BMP's, 500 cc NSS bolus then continuous fluids Creatinine appears to have resolved. Admission HPI Per Admitting Provider Nadia Johnson is a pleasant 78yo female presenting with confusion. Has been on Amoxicillin at home ([facility]) for UTI. Has had increased confusion and weakness. Fell today and struck back around 20:30. Urine collected by PCP on Wednesday, started Amoxicillin on Wednesday [id number] reports patient has been "off" for a couple of weeks. Decreased oral intake. No additional complaints Discharge Exam General: patient resting comfortably, NAD, non-toxic in appearance Skin: warm, dry, intact, no rashes or lesions HEENT: NC/AT, PERRL, EOMI Heart: +S1/S2, regular, no m/r/g Lungs: equal air entry bilaterally, no rales/rhonchi/wheezes Abd: +BS, soft, NT/ND, no masses/organomegaly/ascites Ext: warm, 2+ pulses in UE/LE bilaterally, no clubbing/cyanosis or edema Updated Medication List Medication Instructions Recorded Confirmed Type cholecalciferol (vitamin D3) 50 2,000 unit PO QAM 09/08/18 08/30/23 History mcg (2,000 unit) tablet (Vitamin D3) cyanocobalamin (vitamin B-12) 1,000 mcg PO QAM 09/08/18 08/30/23 History 1,000 mcg tablet (Vitamin B-12) acetaminophen 325 mg tablet 650 mg PO Q4H PRN Fever Or Pain 05/13/21 08/30/23 History lidocaine 4 % topical patch 1 patch topical DAILY PRN Pain 06/03/21 08/30/23 History metformin 500 mg tablet 500 mg PO BIDM 30 days #60 tabs 07/23/22 08/30/23 Rx pen needle, diabetic 31 gauge x #100 ea 08/17/22 08/24/23 Rx 3/16" (Sure-Fine Pen [place]) multivitamin (Daily-Devin tablet) 1 tab PO QAM 09/03/22 08/30/23 History polyethylene glycol 3350 17 17 g PO DAILY PRN constipation 01/29/23 08/30/23 Rx gram/dose oral powder (Miralax) #119 grams ondansetron HCl 4 mg tablet 4 mg PO Q8H PRN nausea and 03/17/23 08/30/23 Rx vomiting #20 tabs lancets 30 gauge (Safety Seal #100 ea 05/27/23 08/24/23 Rx Lancets) pen needle, diabetic, safety 30 #100 ea 05/27/23 08/24/23 Rx gauge x 1/3" (Novofine Autocover) primidone 50 mg tablet 100 mg (2 x 50 mg) PO BID #120 tabs 05/31/23 08/30/23 Rx insulin glargine 100 unit/mL (3 28 unit (0.28 mL) subcut QPM #15 mL 06/11/23 08/30/23 Rx mL) subcutaneous pen (Lantus Solostar U-100 Insulin) ascorbic acid (vitamin C) 500 mg 500 mg PO BID 06/29/23 08/30/23 History capsule cranberry 500 mg capsule 500 mg PO QAM 06/29/23 08/30/23 History diclofenac sodium 1 % topical gel 2 g topical QID PRN pain #100 grams 06/29/23 08/30/23 Rx olopatadine 0.7 % eye drops 1 drp ophthalmic (eye) QAM 06/29/23 08/30/23 History (Pataday Once Daily Relief) blood sugar diagnostic (OneTouch #100 ea 06/30/23 08/24/23 Rx Ultra Test strips) pantoprazole 40 mg tablet,delayed 40 mg PO QAM #30 tabs 07/26/23 08/30/23 Rx release rosuvastatin 20 mg tablet 20 mg PO HS #30 tabs 07/26/23 08/30/23 Rx escitalopram oxalate 20 mg tablet 20 mg PO QAM 07/30/23 08/30/23 History famotidine 20 mg tablet 20 mg PO 2000 07/30/23 08/30/23 History tamsulosin 0.4 mg capsule 0.4 mg PO HS #30 caps 08/09/23 08/30/23 Rx oxybutynin chloride 5 mg tablet 5 mg PO Q8H PRN bladder spasms #20 08/19/23 08/30/23 Rx tabs carbidopa 25 mg-levodopa 100 mg 2 tab PO TID 30 days #180 tabs 08/20/23 08/30/23 Rx tablet dextromethorphan-guaifenesin 10 10 ml PO Q8 PRN Cough 08/24/23 08/30/23 History mg-100 mg/5 mL oral syrup (Tussin DM) diclofenac sodium 1 % topical gel 2 g topical QID PRN Pain 08/24/23 08/30/23 History fluconazole 200 mg tablet 200 mg PO DAILY 08/24/23 08/30/23 History fluticasone propionate 50 1 spray intranasal DAILY 08/24/23 08/30/23 History mcg/actuation nasal spray,suspension olopatadine 0.7 % eye drops 1 drp ophthalmic (eye) QPM PRN 08/24/23 08/30/23 History (Pataday Once Daily Relief) allergies phenazopyridine 100 mg tablet 100 mg PO TID #30 tabs 08/24/23 08/30/23 Rx (Pyridium) fluconazole 200 mg tablet 200 mg PO DAILY 2 weeks #14 tabs 09/13/23 Rx phenazopyridine 200 mg tablet 200 mg PO TID 6 doses #6 tabs 09/13/23 Rx (Pyridium) methenamine hippurate 1 gram tablet See Rx Instructions .Route 09/22/23 Rx .COMPLEX #60 tabs Hospital Stay Data Consultations 09/27/23 03:29 ED Decision to Admit Stat Diagnostic Imagining Performed 09/26/23 23:42 CT abd pelvis wo con Stat CT chest diagnostic wo con Stat Pending Results Patient Have Any Pending Studies at Discharge: No Discharge Instructions Given to Patient (Per Discharging Provider) Followup with your regular scheduled ID appointment. Followup with PCP in 1-2 weeks. Coding Diagnoses Urinary tract infection N39.0; R31.9 Hematuria presence: with hematuria Urinary tract infection type: site unspecified Ground glass opacity present on imaging of lung R91.8
[2023-10-03 12:51] VITALS: BP 180/76; PULSE 54
== END 2023-10-03 13:22 | DRG 682 ==
LOC: ED 22:20 → SUATTDRO 09-27 04:08 → 3E 09-27 04:08

== ENCOUNTER 2024-07-04 20:20 | Inpatient (IN) ==
--- NOTE | 2024-07-04 20:32 | Emergency Department Note ---
Impression & Plan Acute pyelonephritis, Hydronephrosis, Acute alteration in mental status ED Provider Note NAME: AWN ZAVALA AGE: 78 SEX: F : 1945 ARRIVES VIA: Ambulance INFORMANT: Patient, EMS, the patient's family member ED PROVIDER(S): Bradley Brown DO CHIEF COMPLAINT: Altered mental status HPI: The patient is an 78-year-old female who presented to the emergency department for altered mental status. Throughout the day she has had decreased p.o. intake and has been noted to have a fever. The patient has a history of chronic urinary tract infections. The patient had a cath specimen [facility] There is no reported coughing or vomiting. There is no reported falls. EMS personnel were concerned because the patient did have right shoulder pain. There was no reported seizures. Temperature was elevated prior to arrival. The patient was given rectal Tylenol. ROS: See above HPI for pertinent positives & negatives. A total of 10 systems reviewed and were otherwise negative. PAST MEDICAL HISTORY: See Below PAST SURGICAL HISTORY: See Below FAMILY HISTORY: See Below SOCIAL HISTORY: See Below HOME MEDICATIONS: See Below ALLERGIES: See Below VITALS: See Below PHYSICAL EXAMINATION: GENERAL: The patient is listless but responds to loud verbal commands. EYES: The conjunctivae are clear. The pupils are round and reactive. EARS, NOSE, MOUTH AND THROAT: The nose is without any evidence of any deformity. Mucous membranes are dry. NECK: The neck is nontender and supple. RESPIRATORY: Normal respiratory effort is noted there is no evidence of wheezing rhonchi or rales CARDIOVASCULAR: Regular rate and rhythm noted there no murmurs rubs or gallops normal S1 normal S2. GASTROINTESTINAL: The abdomen was mildly distended. There is no guarding or rigidity noted. MUSCULOSKELETAL/EXTREMITIES: There is no evidence of gross deformity full range of motion is noted in the hips and shoulders. SKIN: Skin was warm and dry. There was no significant pedal edema. NEUROLOGIC: Patient is awake to loud verbal commands. She does not answer questions or follow commands. I am unable to assess orientation at this time. MEDICAL DECISION MAKING: The patient is an 78-year-old female who presented to the emergency department for an evaluation after she was starting having decreased mental status decreased p.o. intake and a fever at her personal-detention. The patient does have a history of urinary tract infection. The patient was treated with IV antibiotics and IV fluids. I did review the patient's most recent urine culture and she did have an E. coli ESBL. I discussed the patient's laboratory and radiographic studies with the primary family. [facility] to evaluate the patient in the emergency department. She does appear to have some degree of hydronephrosis to my read of her CAT scan. She had a previous bladder tumor that was treated with cystoscopy by urology last year. It is possible this could be the cause of the hydronephrosis. I discussed with the family whether or not they would want nephrostomy tubes. They are unsure because they note that the patient does have a tendency to pull at tubes including Kemp catheters. I did communicate this with the admitting team. Triage Nursing notes reviewed. Prior medical records reviewed Vital Signs: reviewed and remarkable for elevated blood pressure. Differential diagnosis: Infection, hypoglycemia, electrolyte abnormalities, overdose, toxicologic, cardiac sources, intracerebral event, neurologic, trauma, as well as other pathologies. ER treatment provided: See below Diagnostics interpreted by me: ECG: EKG was obtained in the emergency department. My interpretation is sinus rhythm at 71 bpm. There was no ectopy. Nonspecific ST abnormalities were noted. This was compared to a tracing from November 13, 2023. No changes were noted Cardiac Monitoring: An order was placed for continuous cardiac monitoring. The monitor shows a rate of 71 bpm with sinus rhythm. Laboratory studies: As stated above and show below. Imaging studies: See below. Radiographic imaging was reviewed by myself Consultation(s): I discussed this case with Dr. Rider who is on-call for the [facility] hospitalist group. Past Med/Surg History Problem List (Updated 07/04/24 @ 22:19 by Bradley Borwn DO) Acute alteration in mental status (Acute) Hydronephrosis (Acute) Acute pyelonephritis (Acute) Retention of urine, unspecified Hydronephrosis Pneumonia (Acute) Acute pyelonephritis (Acute) AIXA (acute kidney injury) (Acute) Ground glass opacity present on imaging of lung Thyroid nodule Incontinence Bladder ulcer Seizure-like activity 02/[address] 02/2023- thyroid nodule- recommend thyroid u/s; pulmonary nodules- recommend six month CT follow up (PCP aware per records) Murmur Hypomagnesemia (Acute) Verónica cystitis Iliotibial band syndrome, right leg Trochanteric bursitis, right hip Abdominal pain Right hip pain Ovarian cyst, right Left shoulder pain Orthostatic hypotension Recurrent infections Ataxia Osteopenia Parkinsonism Pelvic pain DM type 2 (diabetes mellitus, type 2) Varicose veins of legs Vertigo (Acute) Memory loss (Chronic) Essential tremor (07/28/13) HTN, goal below 140/90 (Chronic 03/30/17) Vitamin D deficiency (Acute) Trigeminal neuralgia (Acute) Mixed hyperlipidemia (Chronic) Insomnia (Acute) Dysphagia (Acute) No dysphagia symptoms per 06/29/23 PCP records Anxiety (Chronic) Allergic rhinitis (Acute) Depression COPD (chronic obstructive pulmonary disease) (Chronic) IBS (irritable bowel syndrome) (Chronic) Tubular adenoma of colon Medical History Diabetes Anemia Urinary tract infection Hematuria Resides in shelter facility all med hx obtained from [facility] Medical Record History of vertigo Varicose veins of both lower extremities History of trigeminal neuralgia Seizure-like activity Episode of syncope/near syncope- admitted to [facility] 02/2023 (diagnosed with UTI and acute metabolic encephalopathy) EEG 02/2023 WNL Parkinsonism Osteopenia History of orthostatic hypotension Hyperlipemia Memory loss Cognitive changes felt related to age per neurology Iliotibial band syndrome affecting right lower leg Insomnia Incontinence IBS (irritable bowel syndrome) Hypertension Essential tremor s/p bilateral DBS placement 2013 R>L hand per neuro records Diabetes mellitus, type 2 Heart murmur No significant heart valve disease per 02/2023 ECHO Depression COPD (chronic obstructive pulmonary disease) ? per [place] record, pt not on any oxygen or inhalers Bladder ulcer Following with urology Ataxia Per daughter in law- patient can usually ambulate with walker- occ will need wheelchair Anxiety History of falling Coccygeal fracture hx of Nausea Constipation Recurrent urinary tract infection Follows with ID and urology Sensorineural hearing loss (SNHL) of both ears GERD (gastroesophageal reflux disease) resolved, off PPI Surgical History Status post tubal ligation S/P sinus surgery S/P cholecystectomy S/P deep brain stimulator placement (08/20/16) Family History Father Cancer Mother Depression Hypertension Stroke Grandmother Breast cancer Mother Myocardial infarction Other Family history unknown Denies family history of Ovarian cancer Prostate cancer Colorectal cancer Social History Smoking Status: Never smoker Second Hand Exposure: No; Do You Dip or Chew Tobacco: No; Hx Alcohol Use: No Hx Substance Use: No Preferred Language: Danish Communication Ability: Effective High School Director Required: No Beliefs That Will Affect Care: None marital status: / Current Living Situation: Personal Care Facility Current Living Situation Comment: lives at [facility] current occupational status: retired How many Children do You have: 3 Feels Safe at Home: Yes Childhood Exposure to Second-Hand Smoke: Yes Diet: regular caffeine: Yes Dental Care, Regularly: No Physical Activity Frequency: Does not Exercise Seatbelt Use: always Sunscreen Use: No Assistive Devices: Denture - Upper, Denture - Lower and Walker Allergies Allergies Allergy/AdvReac Type Severity Reaction Status Date / Time levetiracetam Allergy Intermediate Rash Verified 08/09/23 07:05 adhesive tape Allergy Mild Rash Verified 08/09/23 07:05 naproxen Allergy Mild RASH Verified 08/09/23 07:05 morphine Allergy Unknown Unknown Verified 08/09/23 07:05 sulfamethoxazole AdvReac Mild Nausea Verified 08/09/23 07:05 [From Bactrim] trimethoprim [From Bactrim] AdvReac Mild Nausea Verified 08/09/23 07:05 Home Meds Home Medications Medication Instructions Recorded Confirmed cholecalciferol (vitamin D3) 50 2,000 unit PO QAM 09/08/18 05/16/24 mcg (2,000 unit) tablet (Vitamin D3) cyanocobalamin (vitamin B-12) 1,000 mcg PO QAM 09/08/18 05/16/24 1,000 mcg tablet (Vitamin B-12) acetaminophen 325 mg tablet 650 mg PO Q4H PRN Fever Or Pain 05/13/21 05/16/24 lidocaine 4 % topical patch 1 patch topical DAILY PRN Pain 06/03/21 05/16/24 multivitamin (Daily-Devin tablet) 1 tab PO QAM 09/03/22 05/16/24 ascorbic acid (vitamin C) 500 mg 500 mg PO BID 06/29/23 05/16/24 capsule cranberry 500 mg capsule 500 mg PO QAM 06/29/23 05/16/24 olopatadine 0.7 % eye drops 1 drp ophthalmic (eye) QAM 06/29/23 05/16/24 (Pataday Once Daily Relief) escitalopram oxalate 20 mg tablet 20 mg PO QAM 07/30/23 05/16/24 famotidine 20 mg tablet 20 mg PO 199907/30/23 05/16/24 dextromethorphan-guaifenesin 10 10 ml PO Q8 PRN Cough 08/24/23 05/16/24 mg-100 mg/5 mL oral syrup (Tussin DM) diclofenac sodium 1 % topical gel 2 g topical QID PRN Pain 08/24/23 05/16/24 fluticasone propionate 50 1 spray intranasal DAILY 08/24/23 05/16/24 mcg/actuation nasal spray,suspension olopatadine 0.7 % eye drops 1 drp ophthalmic (eye) QPM PRN 08/24/23 05/16/24 (Pataday Once Daily Relief) allergies gabapentin 100 mg capsule 100 mg PO BID 05/16/24 05/16/24 haloperidol 1 mg tablet 1 mg PO TID 05/16/24 05/16/24 lamotrigine 150 mg tablet 75 mg PO DAILY 05/16/24 05/16/24 (Lamictal) mirtazapine 15 mg tablet 15 mg PO DAILY 05/16/24 05/16/24 tramadol 50 mg tablet 50 mg PO Q6H PRN 05/16/24 05/16/24 Previous Rx's Medication Instructions Recorded metformin 500 mg tablet 500 mg PO BIDM 30 days #60 tabs 07/23/22 pen needle, diabetic 31 gauge x #100 ea 08/17/22 3/16" (Sure-Fine Pen [place]) polyethylene glycol 3350 17 17 g PO DAILY PRN constipation 01/29/23 gram/dose oral powder (Miralax) #119 grams ondansetron HCl 4 mg tablet 4 mg PO Q8H PRN nausea and 03/17/23 vomiting #20 tabs lancets 30 gauge (Safety Seal #100 ea 05/27/23 Lancets) pen needle, diabetic, safety 30 #100 ea 05/27/23 gauge x 1/3" (Novofine Autocover) primidone 50 mg tablet 100 mg (2 x 50 mg) PO BID #120 tabs 05/31/23 insulin glargine 100 unit/mL (3 28 unit (0.28 mL) subcut QPM #15 mL 06/11/23 mL) subcutaneous pen (Lantus Solostar U-100 Insulin) diclofenac sodium 1 % topical gel 2 g topical QID PRN pain #100 grams 06/29/23 blood sugar diagnostic (OneTouch #100 ea 06/30/23 Ultra Test strips) pantoprazole 40 mg tablet,delayed 40 mg PO QAM #30 tabs 07/26/23 release rosuvastatin 20 mg tablet 20 mg PO HS #30 tabs 07/26/23 oxybutynin chloride 5 mg tablet 5 mg PO Q8H PRN bladder spasms #20 08/19/23 tabs carbidopa 25 mg-levodopa 100 mg 2 tab PO TID 30 days #180 tabs 08/20/23 tablet methenamine hippurate 1 gram tablet See Rx Instructions .Route 09/22/23 .COMPLEX #60 tabs amoxicillin 875 mg-potassium 1 tab PO BID 7 days #14 tabs 11/05/23 clavulanate 125 mg tablet Results & Data (ED) Vital Signs Vital Signs - 24 hr 07/04/24 20:23 07/04/24 20:26 07/04/24 20:30 Temperature Temperature Source Pulse Rate 72 87 Pulse Rate [Apical] Pulse Rate from SpO2 Sensor 72 Respiratory Rate 24 Respiratory Effort / Characteristics Respiratory Pattern Blood Pressure 158/69 H Blood Pressure [Right Arm] Blood Pressure Mean 114 Blood Pressure Mean [Right Arm] Pulse Oximetry 95 Oxygen Delivery Method Sepsis Recent Fever Within 48 Hours Sepsis New/Unexplained Change in Mental Status Sepsis Action Taken by Nursing 07/04/24 20:31 07/04/24 20:46 07/04/24 21:15 Temperature 37.3 C Temperature Source Rectal Pulse Rate 72 70 Pulse Rate [Apical] 72 Pulse Rate from SpO2 Sensor 66 Respiratory Rate 20 25 H 17 Respiratory Effort / Characteristics Spontaneous Respiratory Pattern Regular Blood Pressure 158/69 H Blood Pressure [Right Arm] 166/73 H Blood Pressure Mean 98 Blood Pressure Mean [Right Arm] 104 Pulse Oximetry 94 96 93 Oxygen Delivery Method Room Air Room Air Sepsis Recent Fever Within 48 Hours Yes Sepsis New/Unexplained Change in Mental Status Yes Sepsis Action Taken by Nursing No Action Required 07/04/24 21:15 07/04/24 21:17 07/04/24 21:30 Temperature Temperature Source Pulse Rate Pulse Rate [Apical] 70 71 Pulse Rate from SpO2 Sensor Respiratory Rate 20 17 Respiratory Effort / Characteristics Spontaneous Spontaneous Respiratory Pattern Regular Regular Blood Pressure 161/70 H Blood Pressure [Right Arm] 161/70 H 157/75 H Blood Pressure Mean 102 Blood Pressure Mean [Right Arm] 100 102 Pulse Oximetry 94 96 Oxygen Delivery Method Room Air Room Air Sepsis Recent Fever Within 48 Hours Sepsis New/Unexplained Change in Mental Status Sepsis Action Taken by Nursing 07/04/24 21:30 07/04/24 21:45 Temperature Temperature Source Pulse Rate Pulse Rate [Apical] Pulse Rate from SpO2 Sensor Respiratory Rate Respiratory Effort / Characteristics Respiratory Pattern Blood Pressure 157/75 H 163/72 H Blood Pressure [Right Arm] Blood Pressure Mean 100 107 Blood Pressure Mean [Right Arm] Pulse Oximetry Oxygen Delivery Method Sepsis Recent Fever Within 48 Hours Sepsis New/Unexplained Change in Mental Status Sepsis Action Taken by Alf Medications Current Medication List: was personally reviewed by me Laboratory Data Attestation: I reviewed the patient's lab results. 07/04/24 20:30 07/04/24 20:30 Lab Results 07/04/24 07/04/24 Range/Units 20:30 20:39 WBC 9.55 (4.8-10.8) K/ul RBC 4.04 L (4.20-5.40) M/uL Hgb 11.4 L (12.0-16.0) g/dl POC Hgb 11.2 L (12.0-16.0) g/dl Hct 36.7 L (37.0-47.0) % POC Hct 33 L (37-47) % MCV 90.8 (80.0-100.0) fL MCH 28.2 (25.0-34.0) pg MCHC 31.1 L (32.0-36.0) g/dL RDW Std Deviation 41.4 (36.4-46.3) fL RDW Coeff of Sunitha 12.4 (11.5-14.5) % Plt Count 243 (130-400) K/uL MPV 10.6 (9.4-12.4) fL Immature Gran % (Auto) 0.4 % Neut % (Auto) 79.3 % Lymph % (Auto) 10.6 % Sterling % (Auto) 9.3 % Eos % (Auto) 0.2 % Baso % (Auto) 0.2 % Neut # (Auto) 7.57 H (1.40-6.50) K/uL Lymph # (Auto) 1.01 L (1.20-3.40) K/uL Sterling # (Auto) 0.89 H (0.11-0.59) K/uL Eos # (Auto) 0.02 (0.00-0.50) K/uL Baso # (Auto) 0.02 (0.00-0.20) K/uL Immature Gran # (Auto) 0.04 (0.01-0.20) K/uL PT 12.0 (9.0-12.0) Seconds INR 1.1 (0.9-1.1) APTT 27 (21-31) Seconds PTT Ratio 1.0 VBG pH 7.45 H (7.36-7.41) VBG pCO2 47 (38-50) mmHg VBG pO2 56 mmHg VBG HCO3 33 mmol/L VBG O2 Saturation 89.6 % VBG Base Excess 7.5 mEq/L POC Sodium 154 H (135-144) mmol/L Sodium 154 H (136-145) mmol/L POC Potassium 3.7 (3.3-5.0) mmol/L Potassium 3.8 (3.5-5.1) mmol/L POC Chloride 115 H (101-112) mmol/L Chloride 115 H (98-107) mmol/L Carbon Dioxide 31 (21-32) mmol/L POC Total CO2 27 (24-31) mmol/L Anion Gap 8 (3-11) POC Anion Gap 17.0 (16-25) mmol/L POC BUN 30 H (7-18) mg/dl BUN 32 H (6-23) mg/dl Creatinine 1.08 (0.6-1.2) mg/dl POC Creatinine 1.2 (0.6-1.3) mg/dl Est Cr Clr Drug Dosing 36.0 ml/min eGFR 51.93 BUN/Creatinine Ratio 29.6 H (10-20) Glucose 236 H (70-99(Fasting)) mg/dl POC Glucose (other) 242 H (70-99) mg/dl Lactate 1.3 (0.4-2.0) mmol/L Calcium 10.0 (8.6-10.3) mg/dl POC Ioniz Calcium [place] 1.26 (1.12-1.32) mmol/l Magnesium 2.3 (1.7-2.4) mg/dl Total Bilirubin 0.5 (0.2-1.0) mg/dl Direct Bilirubin 0.1 (0-0.2) mg/dl AST 38 (13-39) U/L ALT 65 H (7-52) U/L Alkaline Phosphatase 96 (34-104) U/L Troponin I High Sens 4.5 (0-14) pg/ml Total Protein 7.4 (6.0-8.3) gm/dl Albumin 3.9 (3.4-5.0) gm/dl Procalcitonin 0.13 (0-0.5) ng/ml Urine Color Yellow Urine Appearance Turbid A (Clear) Urine pH 6.5 (4.5-7.5) Ur Specific [place] 1.015 (1.000-1.030) Urine Protein 2+ H (Negative) Urine Glucose (UA) Negative (Negative) Urine Ketones Negative (Negative) Urine Blood 3+ H (Negative) Urine Nitrite Positive A (Negative) Urine Bilirubin Negative (Negative) Urine Urobilinogen Negative (Negative) Ur Leukocyte Esterase 3+ H (Negative) Urine WBC (Auto) >50 H (0-5) /hpf Urine RBC (Auto) >20 H (0-2) /hpf U Hyaline Cast (Auto) 0-2 (0-2) /lpf U Epithel Cells (Auto) 0-2 (0-2) /hpf Urine Bacteria (Auto) 4+ H (None Seen) SARS-CoV-2 (PCR) NEGATIVE (Negative) Influenza Type A (PCR) Negative (Neg) Influenza Type B (PCR) Negative (Neg) RSV (RT-PCR) Negative (Neg) Administered Medications Discontinued Medications Sodium Chloride (Nss) 1,000 mls @ 999 mls/hr IV .Q1H1M ONE Stop: 07/04/24 21:26 Last Admin: 07/04/24 20:43 Dose: 999 mls/hr Documented By: NRB Ertapenem (Invanz 1000mg) 1,000 mg in 10 mls @ 2 mls/min IV NOW STA Stop: 07/04/24 20:33 Last Admin: 07/04/24 20:42 Dose: 2 mls/min Documented By: NRAriel Imaging Data Attestation: I personally reviewed and interpreted this imaging study as follows: My Impression: X-ray of the humerus was obtained in the emergency department. My interpretation is no definite fracture, final report pending. 1 view chest x-ray was obtained in the emergency department. My interpretation is increased interstitial markings, there is no free air, final report pending. CT the brain was obtained in the emergency department. My interpretation is no intracranial hemorrhage or mass effect, final report pending. CT of the abdomen and pelvis was obtained in the emergency department. Increased stranding was noted around the bladder consistent with cystitis, hydronephrosis was noted bilaterally, no free air, final report pending. Discharge Plan Visit Data Chief Complaint: Lethargic Stated Complaint: LETHARGIC, FEVER, POSSIBLE UTI ED Provider: Bradley Brown Discharge Problem: Acute pyelonephritis, Hydronephrosis, Acute alteration in mental status Patient Disposition: Being Evaluated by Hospitalist Condition: Fair Forms Stand Alone Forms: My [facility] Prescriptions Prescriptions: No Action metformin 500 mg tablet 500 mg PO BIDM 30 Days Qty: 60 11RF (DME) pen needle, diabetic [Sure-Fine Pen [place]] 31 gauge x 3/16" needle See Rx Instructions .Route Qty: 100 3RF Rx Instructions: As directed inject once daily Dx E11.9 Saftey tips (DME) Novofine Autocover 30 gauge x 1/3" needle See Rx Instructions .Route Qty: 100 4RF Rx Instructions: DAILY E11.9 (DME) lancets [Safety Seal Lancets] 30 gauge misc See Rx Instructions .Route Qty: 100 4RF Rx Instructions: TID R73.9 primidone 50 mg tablet 100 mg PO BID Qty: 120 11RF Rx Instructions: 100 mg PO = 2 tablets in the morning and 2 tablets in the evening.; insulin glargine [Lantus Solostar U-100 Insulin] 100 unit/mL (3 mL) insulin pen 28 unit subcut QPM Qty: 15 3RF (DME) OneTouch Ultra Test Strip See Rx Instructions .Route Qty: 100 3RF Rx Instructions: As directed rosuvastatin 20 mg tablet 20 mg PO HS Qty: 30 11RF pantoprazole 40 mg tablet,delayed release (DR/EC) 40 mg PO QAM Qty: 30 11RF oxybutynin chloride 5 mg tablet 5 mg PO Q8H PRN (Reason: bladder spasms) Qty: 20 3RF carbidopa-levodopa 25-100 mg tablet 2 tab PO TID 30 Days Qty: 180 6RF methenamine hippurate 1 gram tablet See Rx Instructions .ROUTE .COMPLEX Qty: 60 4RF Dose Instruction: TAKE 1 TABLET BY MOUTH TWICE DAILY FOR PREVENTION Rx Instructions: TAKE 1 TABLET BY MOUTH TWICE DAILY FOR PREVENTION amoxicillin-pot clavulanate 875-125 mg tablet 1 tab PO BID 7 Days Qty: 14 0RF lidocaine 4 % adhesive patch,medicated 1 patch topical DAILY PRN (Reason: Pain) Rx Instructions: on 12 hours off 12 hours....right hip ondansetron HCl 4 mg tablet 4 mg PO Q8H PRN (Reason: nausea and vomiting) Qty: 20 2RF acetaminophen 325 mg tablet 650 mg PO Q4H MDD 3G PRN (Reason: Fever Or Pain) Hold Instructions: Resume on 01/11/23. resume after finishing fluconazole Rx Instructions: use for mild/mod pain or Temp>100 cranberry 500 mg capsule 500 mg PO QAM ascorbic acid (vitamin C) 500 mg capsule 500 mg PO BID diclofenac sodium 1 % gel 2 g topical QID PRN (Reason: pain) Qty: 100 4RF Rx Instructions: can apply to affected hip, knee and L shoulder polyethylene glycol 3350 [Miralax] 17 gram/dose powder 17 g PO DAILY PRN (Reason: constipation) Qty: 119 0RF Rx Instructions: use if no BM after 3 days Pataday Once Daily Relief 0.7 % drops 1 drp ophthalmic (eye) QAM gabapentin 100 mg capsule 100 mg PO BID haloperidol 1 mg tablet 1 mg PO TID lamotrigine [Lamictal] 150 mg tablet 75 mg PO DAILY mirtazapine 15 mg tablet 15 mg PO DAILY tramadol 50 mg tablet 50 mg PO Q6H PRN cyanocobalamin (vitamin B-12) [Vitamin B-12] 1,000 mcg tablet 1,000 mcg PO QAM cholecalciferol (vitamin D3) [Vitamin D3] 2,000 unit tablet 2,000 unit PO QAM multivitamin [Daily-Devin] Tablet 1 tab PO QAM fluticasone propionate 50 mcg/actuation spray,suspension 1 spray intranasal DAILY diclofenac sodium 1 % gel 2 g TOPICAL QID PRN (Reason: Pain) Rx Instructions: apply to coccyx Pataday Once Daily Relief 0.7 % Drops 1 drp OPHTHALMIC (EYE) QPM PRN (Reason: allergies) dextromethorphan-guaifenesin [Tussin DM] 10-100 mg/5 mL Syrup 10 ml PO Q8 PRN (Reason: Cough) famotidine 20 mg tablet 20 mg PO 1999 Rx Instructions: 20 mg orally pm at 8 pm; escitalopram oxalate 20 mg tablet 20 mg PO QAM Referrals Referrals: Gennaro Costa III, MD [Primary Care Provider] -
[2024-07-04] MEDS: ERTAPENEM 1000MG 1,000 MG/10 ML SYR IV STA (20:42)
[2024-07-04] MEDS: SODIUM CHLORIDE 0.9% 1,000 ML IV ONE ×2 (20:43→22:25)
[2024-07-04 20:51] LABS: iSTAT Creatinine 1.2 mg/dl (0.6-1.3); iSTAT Hemoglobin 11.2 g/dl (12.0-16.0); iSTAT Ionized Calcium 1.26 mmol/l (1.12-1.32); iSTAT Potassium 3.7 mmol/L (3.3-5.0)
[2024-07-04 20:56] LABS: Base Excess VBG 7.5 mEq/L; HCO3 VBG 33 mmol/L; Oxygen Saturation VBG 89.6 %; PCO2 VBG 47 mmHg (38-50); PO2 VBG 56 mmHg; pH VBG 7.45 (7.36-7.41)
[2024-07-04 21:07] LABS: Appearance Urine Turbid (Clear); Bacteria Urine Automated 4+ (None Seen); Bilirubin Urine Negative (Negative); Blood Urine 3+ (Negative); Cast Urine Automated 0-2 /lpf (0-2); Color Urine Yellow; Epithelial Cell Urine Auto 0-2 /hpf (0-2); Glucose Urine UA Negative (Negative); Ketones Urine Negative (Negative); Leukocyte Esterase Urine 3+ (Negative); Nitrite Urine Positive (Negative); Protein Urine 2+ (Negative); RBC Urine Automated >20 /hpf (0-2); Specific Gravity Urine 1.015 (1.000-1.030); Urobilinogen Urine Negative (Negative); WBC Urine Automated >50 /hpf (0-5); pH Urine 6.5 (4.5-7.5)
[2024-07-04 21:13] LABS: Albumin Level 3.9 gm/dl (3.4-5.0); BUN Creatinine Ratio 29.6 (10-20); Bilirubin Direct 0.1 mg/dl (0-0.2); Bilirubin,Total 0.5 mg/dl (0.2-1.0); Magnesium 2.3 mg/dl (1.7-2.4); Potassium 3.8 mmol/L (3.5-5.1); Total Protein 7.4 gm/dl (6.0-8.3)
[2024-07-04 21:20] LABS: Troponin I High Sensitivity 4.5 pg/ml (0-14)
[2024-07-04 21:28] LABS: Basophils # (auto) 0.02 K/uL (0.00-0.20); Basophils % (auto) 0.2 %; Eosinophils # (auto) 0.02 K/uL (0.00-0.50); Eosinophils % (auto) 0.2 %; Hematocrit (blood only) 36.7 % (37.0-47.0); Hemoglobin 11.4 g/dl (12.0-16.0); Immature Granulocytes # (auto) 0.04 K/uL (0.01-0.20); Immature Granulocytes % (auto) 0.4 %; Lymphocytes # (auto) 1.01 K/uL (1.20-3.40); Lymphocytes % (auto) 10.6 %; Mean Corpuscular Hemoglobin 28.2 pg (25.0-34.0); Mean Corpuscular Hgb Conc 31.1 g/dL (32.0-36.0); Mean Corpuscular Volume 90.8 fL (80.0-100.0); Mean Platelet Volume 10.6 fL (9.4-12.4); Monocytes # (auto) 0.89 K/uL (0.11-0.59); Monocytes % (auto) 9.3 %; Neutrophils # (auto) 7.57 K/uL (1.40-6.50); Neutrophils % (auto) 79.3 %; Platelet Count 243 K/uL (130-400); RDW Coefficient of Variation 12.4 % (11.5-14.5); RDW Standard Deviation 41.4 fL (36.4-46.3); Red Blood Count 4.04 M/uL (4.20-5.40); White Blood Count 9.55 K/ul (4.8-10.8)
[2024-07-04 21:32] LABS: INR 1.1 (0.9-1.1); Partial Thromboplastin Time 27 Seconds (21-31)
[2024-07-04 21:48] LABS: Influenza A virus by PCR Negative (Neg); Influenza B virus by PCR Negative (Neg); RSV by PCR Negative (Neg); SARS CoV2 RNA(COVID-19) Ceph NEGATIVE (Negative)
[2024-07-04] MEDS: ACETAMINOPHEN 1000 MG/100 ML IV IV ONE (22:46)
--- NOTE | 2024-07-04 23:24 | History & Physical Report ---
Date of Service July 04, 2024 Assessment & Plan (1) Acute alteration in mental status: (2) Hypernatremia: (3) Hydronephrosis: (4) Urinary tract infection: (5) Diabetes: (6) Parkinsonism: (7) Hyperlipemia: Plan 78-year-old female presenting from her group home with fever, decreased responsiveness, decreased oral intake #Acute alteration in mental statusacute metabolic encephalopathylikely multifactorial in setting of volume contraction, hypernatremia, UTI IV fluids, antibiotics Frequent orientation #Hyponatremiasodium = 154. Patient appears volume contracted on exam. Free water deficit = 3.1 L Will administer D5W at 80 mL/h Repeat chemistry in the morning #Hydronephrosispatient was undergoing outpatient urological workup. She had a cystoscopy performed recently with concerns for possible chronic urinary retention. CT findings as above with bilateral hydronephrosis. Place Kemp Monitor output Urology consultation appreciated Will keep patient n.p.o. after midnight in case cystoscopy is performed in the morning Continue Flomax #UTIpatient with history of ESBL E. coli UTI Ertapenem Isolation precautions due to resistant organism Tylenol as needed for pain or fever #Parkinsonism Continue carbidopa levodopa at home dosage #Diabetes Lantus, insulin sliding scale Continue Neurontin #Hyperlipidemia Continue Crestor #Mental health Continue Seroquel 25 mg p.o. every morning, 50 mg p.o. every afternoon Continue Haldol Continue benztropine as needed Continue Lexapro #Seizure disorder Continue Lamictal #GERD Continue Protonix Continue Pepcid History of Present Illness Chief Complaint: fever, confusion, decreased oral intake Primary Care Provider: Gennaro Costa III, Nadiananette Johnson is an 78yo female with history of DM, GERD, HTN and COPD presenting from [facility] with fever to 100.7 prior to arrival, decreased oral intake and somnolence. Patient was seen by Urology on 06/26/2024 for continued workup of LUTS, significant recurrent cystitis and infections. She had a cystoscopy performed which showed significant change in the bladder - multiple areas of diverticulum significant trabeculation and thickened bladder. Concern for developing chronic retention and incomplete emptying. In the ER she is afebrile, hypertensive otherwise HD stable Found to have positive UA, hypernatremia ER Course: Meropenem Allergies Allergy/AdvReac Type Severity Reaction Status Date / Time levetiracetam Allergy Intermediate Rash Verified 07/04/24 23:18 adhesive tape Allergy Mild Rash Verified 07/04/24 23:18 naproxen Allergy Mild RASH Verified 07/04/24 23:18 morphine Allergy Unknown Unknown Verified 07/04/24 23:18 sulfamethoxazole AdvReac Mild Nausea Verified 07/04/24 23:18 [From Bactrim] trimethoprim [From Bactrim] AdvReac Mild Nausea Verified 07/04/24 23:18 Home Medications Medication Instructions Recorded Confirmed Type cholecalciferol (vitamin D3) 50 2,000 unit PO QAM 09/08/18 07/04/24 History mcg (2,000 unit) tablet (Vitamin D3) cyanocobalamin (vitamin B-12) 1,000 mcg PO QAM 09/08/18 07/04/24 History 1,000 mcg tablet (Vitamin B-12) acetaminophen 325 mg tablet 650 mg PO Q4H PRN pain 1-8 05/13/21 07/04/24 History pen needle, diabetic 31 gauge x #100 ea 08/17/22 07/04/24 Rx 3/16" (Sure-Fine Pen [place]) multivitamin (Daily-Devin tablet) 1 tab PO QAM 09/03/22 07/04/24 History polyethylene glycol 3350 17 17 g PO DAILY PRN constipation 01/29/23 07/04/24 Rx gram/dose oral powder (Miralax) #119 grams lancets 30 gauge (Safety Seal #100 ea 05/27/23 07/04/24 Rx Lancets) pen needle, diabetic, safety 30 #100 ea 05/27/23 07/04/24 Rx gauge x 1/3" (Novofine Autocover) ascorbic acid (vitamin C) 500 mg 500 mg PO BID 06/29/23 07/04/24 History capsule cranberry 500 mg capsule 500 mg PO QAM 06/29/23 07/04/24 History diclofenac sodium 1 % topical gel 2 g topical QID PRN pain #100 grams 06/29/23 07/04/24 Rx blood sugar diagnostic (OneTouch #100 ea 06/30/23 07/04/24 Rx Ultra Test strips) pantoprazole 40 mg tablet,delayed 40 mg PO QAM #30 tabs 07/26/23 07/04/24 Rx release rosuvastatin 20 mg tablet 20 mg PO HS #30 tabs 07/26/23 07/04/24 Rx escitalopram oxalate 20 mg tablet 20 mg PO QAM 07/30/23 07/04/24 History famotidine 20 mg tablet 20 mg PO 199907/30/23 07/04/24 History oxybutynin chloride 5 mg tablet 5 mg PO Q8H PRN bladder spasms #20 08/19/23 07/04/24 Rx tabs carbidopa 25 mg-levodopa 100 mg 2 tab PO TID 30 days #180 tabs 08/20/23 07/04/24 Rx tablet dextromethorphan-guaifenesin 10 10 ml PO Q8 PRN Cough 08/24/23 07/04/24 History mg-100 mg/5 mL oral syrup (Florian RED) diclofenac sodium 1 % topical gel 2 g topical QID Pain 08/24/23 07/04/24 History fluticasone propionate 50 1 spray intranasal DAILY 08/24/23 07/04/24 History mcg/actuation nasal spray,suspension gabapentin 100 mg capsule 100 mg PO BID 05/16/24 07/04/24 History haloperidol 1 mg tablet 1 mg PO Q6 PRN BPSD/AGITATION 05/16/24 07/04/24 History lamotrigine 150 mg tablet 75 mg PO AMHS 05/16/24 07/04/24 History (Lamictal) mirtazapine 15 mg tablet 15 mg PO HS 05/16/24 07/04/24 History tramadol 50 mg tablet 50 mg PO Q6H PRN pain,severe 05/16/24 07/04/24 History Abh Gel 1 applic topical Q6 PRN 07/04/24 07/04/24 History BPSD/AGITATION acetaminophen 325 mg tablet 650 mg PO Q6 PRN temp > 100 07/04/24 07/04/24 History acetaminophen 650 mg rectal 650 mg MT Q6H PRN general 07/04/24 07/04/24 History suppository discomfort benztropine 1 mg/mL injection 1 mg IM BID PRN EPS 07/04/24 07/04/24 History solution ceftriaxone 1 gram solution for 1 g IM HS 07/04/24 07/04/24 History injection insulin aspart U-100 100 unit/mL 10 unit subcut DAILY 07/04/24 07/04/24 History subcutaneous solution insulin glargine 100 unit/mL (3 14 unit subcut HS 07/04/24 07/04/24 History mL) subcutaneous pen (Lantus Solostar U-100 Insulin) lidocaine HCl 10 mg/mL (1 %) 2.1 ml IM HS 07/04/24 07/04/24 History injection solution loperamide 2 mg tablet (Imodium 2 mg PO .Q 2 HOURS PRN Diarrhea 07/04/24 07/04/24 History A-D) methenamine hippurate 1 gram tablet 1 g PO AMHS 07/04/24 07/04/24 History olopatadine 0.1 % eye drops 1 drp OPB DAILY 07/04/24 07/04/24 History olopatadine 0.1 % eye drops 1 drp OPB HS PRN allergies 07/04/24 07/04/24 History ondansetron HCl 8 mg tablet 4 mg PO Q8H PRN n/v 07/04/24 07/04/24 History primidone 50 mg tablet 100 mg PO AMHS 07/04/24 07/04/24 History quetiapine 25 mg tablet 25 mg PO QAM 07/04/24 07/04/24 History quetiapine 25 mg tablet 50 mg PO QPM 07/04/24 07/04/24 History tamsulosin 0.4 mg capsule 0.4 mg PO DAILY 07/04/24 07/04/24 History Past Med/Surg History Problem List (Updated 07/05/24 @ 01:24 by Livia Rider DO) Hypernatremia Acute alteration in mental status (Acute) Hydronephrosis (Acute) Acute pyelonephritis (Acute) Retention of urine, unspecified Hydronephrosis Pneumonia (Acute) Acute pyelonephritis (Acute) AIXA (acute kidney injury) (Acute) Ground glass opacity present on imaging of lung Thyroid nodule Incontinence Bladder ulcer Seizure-like activity 02/[address] 02/2023- thyroid nodule- recommend thyroid u/s; pulmonary nodules- recommend six month CT follow up (PCP aware per records) Murmur Hypomagnesemia (Acute) [place] cystitis Iliotibial band syndrome, right leg Trochanteric bursitis, right hip Abdominal pain Right hip pain Ovarian cyst, right Left shoulder pain Orthostatic hypotension Recurrent infections Ataxia Osteopenia Parkinsonism Pelvic pain DM type 2 (diabetes mellitus, type 2) Varicose veins of legs Vertigo (Acute) Memory loss (Chronic) Essential tremor (07/28/13) HTN, goal below 140/90 (Chronic 03/30/17) Vitamin D deficiency (Acute) Trigeminal neuralgia (Acute) Mixed hyperlipidemia (Chronic) Insomnia (Acute) Dysphagia (Acute) No dysphagia symptoms per 06/29/23 PCP records Anxiety (Chronic) Allergic rhinitis (Acute) Depression COPD (chronic obstructive pulmonary disease) (Chronic) IBS (irritable bowel syndrome) (Chronic) Tubular adenoma of colon Medical History Diabetes Anemia Urinary tract infection Hematuria Resides in [facility] all med hx obtained from [facility] Medical Record History of vertigo Varicose veins of both lower extremities History of trigeminal neuralgia Seizure-like activity Episode of syncope/near syncope- admitted to [facility] 02/2023 (diagnosed with UTI and acute metabolic encephalopathy) EEG 02/2023 WNL Parkinsonism Osteopenia History of orthostatic hypotension Hyperlipemia Memory loss Cognitive changes felt related to age per neurology Iliotibial band syndrome affecting right lower leg Insomnia Incontinence IBS (irritable bowel syndrome) Hypertension Essential tremor s/p bilateral DBS placement 2013 R>L hand per neuro records Diabetes mellitus, type 2 Heart murmur No significant heart valve disease per 02/2023 ECHO Depression COPD (chronic obstructive pulmonary disease) ? per [place] record, pt not on any oxygen or inhalers Bladder ulcer Following with urology Ataxia Per daughter in law- patient can usually ambulate with walker- occ will need wheelchair Anxiety History of falling Coccygeal fracture hx of Nausea Constipation Recurrent urinary tract infection Follows with ID and urology Sensorineural hearing loss (SNHL) of both ears GERD (gastroesophageal reflux disease) resolved, off PPI Surgical History Status post tubal ligation S/P sinus surgery S/P cholecystectomy S/P deep brain stimulator placement (08/20/16) Family History Father Cancer Mother Depression Hypertension Stroke Grandmother Breast cancer Mother Myocardial infarction Other Family history unknown Denies family history of Ovarian cancer Prostate cancer Colorectal cancer Social History Smoking Status: Never smoker Second Hand Exposure: No; Do You Dip or Chew Tobacco: No; Hx Alcohol Use: No Hx Substance Use: No Preferred Language: Indonesian Communication Ability: Effective [place] Required: No Beliefs That Will Affect Care: None marital status: / Current Living Situation: Personal Care Facility Current Living Situation Comment: lives at [facility] current occupational status: retired How many Children do You have: 3 Feels Safe at Home: Yes Childhood Exposure to Second-Hand Smoke: Yes Diet: regular caffeine: Yes Dental Care, Regularly: No Physical Activity Frequency: Does not Exercise Seatbelt Use: always Sunscreen Use: No Assistive Devices: Denture - Upper, Denture - Lower and Walker Review of Systems Review of Systems: All systems reviewed & are unremarkable except as noted in HPI & below Physical Exam Physical Exam: General: patient somnolent, does not respond to verbal questioning or follow commands Skin: warm, dry, intact, no rashes or lesions HEENT: NC/AT, PERRL, anicteric sclera, conjunctiva without injection, external ear normal to inspection and nontender, nares patent, dry mucus membranes, dentition intact, no oropharyngeal lesions, neck supple, trachea midline, no LAD, no thyromegaly, no JVD Heart: +S1/S2, regular, no m/r/g Lungs: equal air entry bilaterally, no rales/rhonchi/wheezes Abd: +BS, soft, NT/ND, no masses/organomegaly/ascites Ext: warm, 2+ pulses in UE/LE bilaterally, no clubbing/cyanosis or edema Neuro: patient somnolent, does not follow commands or verbally respond at present, withdraws from pain Results & Data Results & Data Vital Signs (Past 12 Hours) Vital Signs Temp Pulse Pulse Resp BP BP Pulse Ox 07/04/24 22:59 70 21 156/92 H 96 07/04/24 22:45 160/87 H 07/04/24 22:31 173/78 H 07/04/24 22:15 70 18 95 07/04/24 22:15 162/69 H 07/04/24 21:45 163/72 H 07/04/24 21:30 157/75 H 07/04/24 21:30 71 17 157/75 H 96 07/04/24 21:17 70 20 161/70 H 94 07/04/24 21:15 161/70 H 07/04/24 21:15 70 17 93 07/04/24 20:46 72 25 H 166/73 H 96 07/04/24 20:31 37.3 C 72 20 158/69 H 94 07/04/24 20:30 87 24 95 07/04/24 20:26 72 07/04/24 20:23 158/69 H O2 Del Method 07/04/24 22:59 Room Air 07/04/24 22:45 07/04/24 22:31 07/04/24 22:15 07/04/24 22:15 07/04/24 21:45 07/04/24 21:30 07/04/24 21:30 Room Air 07/04/24 21:17 Room Air 07/04/24 21:15 07/04/24 21:15 07/04/24 20:46 Room Air 07/04/24 20:31 Room Air 07/04/24 20:30 07/04/24 20:26 07/04/24 20:23 Laboratory Results Laboratory Results WBC 9.55 K/ul (4.8-10.8) 07/04/24 20:30 RBC 4.04 M/uL (4.20-5.40) L 07/04/24 20:30 Hgb 11.4 g/dl (12.0-16.0) L 07/04/24 20:30 POC Hgb 11.2 g/dl (12.0-16.0) L 07/04/24 20:39 Hct 36.7 % (37.0-47.0) L 07/04/24 20:30 POC Hct 33 % (37-47) L 07/04/24 20:39 MCV 90.8 fL (80.0-100.0) 07/04/24 20: MCH 28.2 pg (25.0-34.0) 07/04/24 20:30 MCHC 31.1 g/dL (32.0-36.0) L 07/04/24 20:30 RDW Std Deviation 41.4 fL (36.4-46.3) 07/04/24 20: RDW Coeff of Sunitha 12.4 % (11.5-14.5) 07/04/24 20:30 Plt Count 243 K/uL (130-400) 07/04/24 20:30 MPV 10.6 fL (9.4-12.4) 07/04/24 20:30 Immature Gran % (Auto) 0.4 % 07/04/24 20:30 Neut % (Auto) 79.3 % 07/04/24 20:30 Lymph % (Auto) 10.6 % 07/04/24 20:30 [place] % (Auto) 9.3 % 07/04/24 20:30 Eos % (Auto) 0.2 % 07/04/24 20:30 Baso % (Auto) 0.2 % 07/04/24:30 Neut # (Auto) 7.57 K/uL (1.40-6.50) H 07/04/24 20:30 Lymph # (Auto) 1.01 K/uL (1.20-3.40) L 07/04/24:30 [place] # (Auto) 0.89 K/uL (0.11-0.59) H 07/04/24 20:30 Eos # (Auto) 0.02 K/uL (0.00-0.50) 07/04/24 20:30 Baso # (Auto) 0.02 K/uL (0.00-0.20) 07/04/24 20:30 Immature Gran # (Auto) 0.04 K/uL (0.01-0.20) 07/04/24 20:30 PT 12.0 Seconds (9.0-12.0) 07/04/24: INR 1.1 (0.9-1.1) 07/04/24 20:30 APTT 27 Seconds (21-31) 07/04/24 20:30 PTT Ratio 1.0 07/04/24:30 VBG pH 7.45 (7.36-7.41) H 07/04/24 20:30 VBG pCO2 47 mmHg (38-50) 07/04/24 20:30 VBG pO2 56 mmHg 07/04/24 20:30 VBG HCO3 33 mmol/L 07/04/24 20:30 VBG O2 Saturation 89.6 % 07/04/24 20:30 VBG Base Excess 7.5 mEq/L 07/04/24 20:30 POC Sodium 154 mmol/L (135-144) H 07/04/24 20:39 Sodium 154 mmol/L (136-145) H 07/04/24 20:30 POC Potassium 3.7 mmol/L (3.3-5.0) 07/04/24 20:39 Potassium 3.8 mmol/L (3.5-5.1) 07/04/24 20:30 POC Chloride 115 mmol/L (101-112) H 07/04/24 20: Chloride 115 mmol/L (98-107) H 07/04/24 20:30 Carbon Dioxide 31 mmol/L (21-32) 07/04/24 20: POC Total CO2 27 mmol/L (24-31) 07/04/24 20:39 Anion Gap 8 (3-11) 07/04/24 20:30 POC Anion Gap 17.0 mmol/L (16-25) 07/04/24 20:39 POC BUN 30 mg/dl (7-18) H 07/04/24 20: BUN 32 mg/dl (6-23) H 07/04/24 20:30 Creatinine 1.08 mg/dl (0.6-1.2) 07/04/24 20: POC Creatinine 1.2 mg/dl (0.6-1.3) 07/04/24 20:39 Est Cr Clr Drug Dosing 36.0 ml/min 07/04/24 20:30 eGFR 51.93 07/04/24 20:30 BUN/Creatinine Ratio 29.6 (10-20) H 07/04/24 20:30 Glucose 236 mg/dl (70-99(Fasting)) H 07/04/24 20:30 POC Glucose (other) 242 mg/dl (70-99) H 07/04/24 20:39 Lactate 1.3 mmol/L (0.4-2.0) 07/04/24 20: Calcium 10.0 mg/dl (8.6-10.3) 07/04/24 20:30 POC Ioniz Calcium [place] 1.26 mmol/l (1.12-1.32) 07/04/24 20: Magnesium 2.3 mg/dl (1.7-2.4) 07/04/24 20:30 Total Bilirubin 0.5 mg/dl (0.2-1.0) 07/04/24 20:30 Direct Bilirubin 0.1 mg/dl (0-0.2) 07/04/24 20:30 AST 38 U/L (13-39) 07/04/24 20:30 ALT 65 U/L (7-52) H 07/04/24 20:30 Alkaline Phosphatase 96 U/L (34-104) 07/04/24 20:30 Troponin I High Sens 4.5 pg/ml (0-14) 07/04/24 20:30 Total Protein 7.4 gm/dl (6.0-8.3) 07/04/24 20 Albumin 3.9 gm/dl (3.4-5.0) 07/04/24 20 Procalcitonin 0.13 ng/ml (0-0.5) 07/04/24 20:30 Urine Color Yellow 07/04/24 20:30 Urine Appearance Turbid (Clear) A 07/04/24 20: Urine pH 6.5 (4.5-7.5) 07/04/24 20:30 Ur Specific [place] 1.015 (1.000-1.030) 07/04/24 20:30 Urine Protein 2+ (Negative) H 07/04/24 20:30 Urine Glucose (UA) Negative (Negative) 07/04/24 20: Urine Ketones Negative (Negative) 07/04/24 20:30 Urine Blood 3+ (Negative) H 07/04/24 20:30 Urine Nitrite Positive (Negative) A 07/04/24 Urine Bilirubin Negative (Negative) 07/04/24 20:30 Urine Urobilinogen Negative (Negative) 07/04/24 20:30 Ur Leukocyte Esterase 3+ (Negative) H 07/04/24 20:30 Urine WBC (Auto) >50 /hpf (0-5) H 07/04/24 20:30 Urine RBC (Auto) >20 /hpf (0-2) H 07/04/24 20:30 U Hyaline Cast (Auto) 0-2 /lpf (0-2) 07/04/24 20:30 U Epithel Cells (Auto) 0-2 /hpf (0-2) 07/04/24 20:30 Urine Bacteria (Auto) 4+ (None Seen) H 07/04/24 20:30 SARS-CoV-2 (PCR) NEGATIVE (Negative) 07/04/24 20:30 Influenza Type A (PCR) Negative (Neg) 07/04/24 20:30 Influenza Type B (PCR) Negative (Neg) 07/04/24 20:30 RSV (RT-PCR) Negative (Neg) 07/04/24 20:30 Impressions Abdomen/Pelvis CT 07/04/24 20:26 Exam(s): CT ABDOMEN + PELVIS Without Contrast EXAM: CT Abdomen and Pelvis Without Intravenous Contrast CLINICAL HISTORY: Reason for exam: fever. TECHNIQUE: Axial computed tomography images of the abdomen and pelvis without intravenous contrast. CTDI is full 11.86 mGy and DLP is 590.76 mGy-cm. Automated exposure control was utilized for the study. A dose lowering technique was utilized adhering to the principles of ALARA. COMPARISON: CT September 27, 2023. FINDINGS: ABDOMEN: Liver: Unremarkable. Gallbladder and bile ducts: Cholecystectomy. No ductal dilation. Pancreas: Unremarkable. No ductal dilation. Spleen: Unremarkable. No splenomegaly. Adrenals: Unremarkable. No mass. Kidneys and ureters: New bilateral moderate to severe hydroureteronephrosis to the level of the bladder, worse on the right. No evidence of obstructing ureteral calculus. Stomach and bowel: Unremarkable. No obstruction. No mucosal thickening. PELVIS: Appendix: No findings to suggest acute appendicitis. Bladder: Mild bladder wall thickening. No stones. ABDOMEN and PELVIS: Intraperitoneal space: Unremarkable. No free air. No significant fluid collection. Bones/joints: No acute findings. Soft tissues: Unremarkable. Vasculature: Unremarkable. No abdominal aortic aneurysm. Lymph nodes: Unremarkable. No enlarged lymph nodes. IMPRESSION: New bilateral moderate to severe hydroureteronephrosis to the level of the bladder, worse on the right. No evidence of obstructing ureteral calculus. No other acute findings. Electronically signed by: Mina Faith MD 07/05/24 00:30 AM Chest X-Ray 07/04/24 20:26 Exam(s): XR CXR 1 VIEW EXAM: XR Chest, 1 View CLINICAL HISTORY: Reason for exam: Sepsis. TECHNIQUE: Frontal view of the chest. COMPARISON: Prior chest x-ray from November 13, 2023. FINDINGS: There are deep brain stimulator battery packs in the anterior chest wall. Lungs: Unremarkable. No consolidation. Pleural space: Unremarkable. No pneumothorax. Heart: Unremarkable. No cardiomegaly. Mediastinum: Unremarkable. Normal mediastinal contour. Bones/joints: Unremarkable. No acute fracture. IMPRESSION: No evidence of acute cardiopulmonary process. Electronically signed by: Julissa Loyd MD 07/05/24 00:[address] 07/04/24 20:26 Exam(s): CT HEAD Without Contrast EXAM: CT Head Without Intravenous Contrast CLINICAL HISTORY: Reason for exam: ams. TECHNIQUE: Axial computed tomography images of the head/brain without intravenous contrast. CTDI is 38.55 mGy and DLP is 624.41 mGy-cm. Automated exposure control was utilized for the study. A dose lowering technique was utilized adhering to the principles of ALARA. COMPARISON: Prior head CT from November 13, 2023. FINDINGS: Brain: Bilateral deep brain stimulator electrodes terminate in the thalami. There is a remote ischemic injury of the left cerebellum.. No hemorrhage. No significant white matter disease. No edema. Ventricles: Moderate ventriculomegaly. Bones/joints: Unremarkable. No acute fracture. Soft tissues: Unremarkable. Sinuses: Unremarkable as visualized. No acute sinusitis. Mastoid air cells: Unremarkable as visualized. No mastoid effusion. IMPRESSION: No evidence of acute intracranial pathology. Electronically signed by: Julissa Loyd MD 07/05/24 00:30 AM Humerus X-Ray 07/04/24 20:26 Exam(s): XR RIGHT HUMERUS, 2+ views EXAM: XR Right Humerus, 2 or More Views CLINICAL HISTORY: Reason for exam: pain. TECHNIQUE: Frontal and lateral views of the right humerus. COMPARISON: No relevant prior studies available. FINDINGS: Bones/joints: Unremarkable. No acute fracture. No dislocation. Soft tissues: Unremarkable. IMPRESSION: Negative right humerus x-rays. Electronically signed by: Mina Faith MD 07/05/24 00:21 AM PG Care Time/CCT Total # of Minutes Spent Total Time Spent with Patient: Total time spent is greater than 50% in coordination of care (as documented) at patient's floor/unit and/or counseling patient: Coding Level of Care Code 68829 INT INP/OBS CARE 3/75MIN Diagnoses Acute alteration in mental status R41.82 Hypernatremia E87.0 Hydronephrosis N13.30 Urinary tract infection N39.0; R31.9 Hematuria presence: with hematuria Urinary tract infection type: site unspecified Diabetes E11.9 Parkinsonism G20.C Hyperlipemia E78.5 (4) Urinary tract infection Hematuria presence: with hematuria Urinary tract infection type: site unspecified Qualified Code(s): N39.0 - Urinary tract infection, site not specified; R31.9 - Hematuria, unspecified
--- NOTE | 2024-07-05 00:11 | XRay Report ---
Exam(s): XR CXR 1 VIEW EXAM: XR Chest, 1 View CLINICAL HISTORY: Reason for exam: Sepsis. TECHNIQUE: Frontal view of the chest. COMPARISON: Prior chest x-ray from November 13, 2023. FINDINGS: There are deep brain stimulator battery packs in the anterior chest wall. Lungs: Unremarkable. No consolidation. Pleural space: Unremarkable. No pneumothorax. Heart: Unremarkable. No cardiomegaly. Mediastinum: Unremarkable. Normal mediastinal contour. Bones/joints: Unremarkable. No acute fracture. IMPRESSION: No evidence of acute cardiopulmonary process. Electronically signed by: Julissa Loyd MD 07/05/24 00:10 AM
--- NOTE | 2024-07-05 00:22 | XRay Report ---
Exam(s): XR RIGHT HUMERUS, 2+ views EXAM: XR Right Humerus, 2 or More Views CLINICAL HISTORY: Reason for exam: pain. TECHNIQUE: Frontal and lateral views of the right humerus. COMPARISON: No relevant prior studies available. FINDINGS: Bones/joints: Unremarkable. No acute fracture. No dislocation. Soft tissues: Unremarkable. IMPRESSION: Negative right humerus x-rays. Electronically signed by: Mina Faith MD 07/05/24 00:21 AM
--- NOTE | 2024-07-05 00:31 | CT Scan Report ---
Exam(s): CT HEAD Without Contrast EXAM: CT Head Without Intravenous Contrast CLINICAL HISTORY: Reason for exam: ams. TECHNIQUE: Axial computed tomography images of the head/brain without intravenous contrast. CTDI is 38.55 mGy and DLP is 624.41 mGy-cm. Automated exposure control was utilized for the study. A dose lowering technique was utilized adhering to the principles of ALARA. COMPARISON: Prior head CT from November 13, 2023. FINDINGS: Brain: Bilateral deep brain stimulator electrodes terminate in the thalami. There is a remote ischemic injury of the left cerebellum.. No hemorrhage. No significant white matter disease. No edema. Ventricles: Moderate ventriculomegaly. Bones/joints: Unremarkable. No acute fracture. Soft tissues: Unremarkable. Sinuses: Unremarkable as visualized. No acute sinusitis. Mastoid air cells: Unremarkable as visualized. No mastoid effusion. IMPRESSION: No evidence of acute intracranial pathology. Electronically signed by: Julissa Loyd MD 07/05/24 00:30 AM
--- NOTE | 2024-07-05 00:31 | CT Scan Report ---
Exam(s): CT ABDOMEN + PELVIS Without Contrast EXAM: CT Abdomen and Pelvis Without Intravenous Contrast CLINICAL HISTORY: Reason for exam: fever. TECHNIQUE: Axial computed tomography images of the abdomen and pelvis without intravenous contrast. CTDI is full 11.86 mGy and DLP is 590.76 mGy-cm. Automated exposure control was utilized for the study. A dose lowering technique was utilized adhering to the principles of ALARA. COMPARISON: CT September 27, 2023. FINDINGS: ABDOMEN: Liver: Unremarkable. Gallbladder and bile ducts: Cholecystectomy. No ductal dilation. Pancreas: Unremarkable. No ductal dilation. Spleen: Unremarkable. No splenomegaly. Adrenals: Unremarkable. No mass. Kidneys and ureters: New bilateral moderate to severe hydroureteronephrosis to the level of the bladder, worse on the right. No evidence of obstructing ureteral calculus. Stomach and bowel: Unremarkable. No obstruction. No mucosal thickening. PELVIS: Appendix: No findings to suggest acute appendicitis. Bladder: Mild bladder wall thickening. No stones. ABDOMEN and PELVIS: Intraperitoneal space: Unremarkable. No free air. No significant fluid collection. Bones/joints: No acute findings. Soft tissues: Unremarkable. Vasculature: Unremarkable. No abdominal aortic aneurysm. Lymph nodes: Unremarkable. No enlarged lymph nodes. IMPRESSION: New bilateral moderate to severe hydroureteronephrosis to the level of the bladder, worse on the right. No evidence of obstructing ureteral calculus. No other acute findings. Electronically signed by: Mina Faith MD 07/05/24 00:30 AM
--- NOTE | 2024-07-05 01:12 | Urology Consultation ---
Date of Consultation July 05, 2024 Assessment & Plan (1) Hydronephrosis: The patient has been admitted on the hospitalist service. From urologic expected we recommend the following: Broad-spectrum antibiotics in form of ertapenem have been started and this should continue. Appropriate cultures have been sent and can be used to tailor further antibiotic therapy once further results are obtained Serial labs to be followed In light of the new hydronephrosis and review of Dr. Britt most recent outpatient recommendationsI have ordered a Kemp catheter be placed to promote maximal urinary drainage in the setting of urinary tract infection Will keep the patient n.p.o. for the present time She will be reevaluated the morning of 07/05/2024 and a determination will be made if patient will require a repeat cystoscopic examination At the present time the patient is nontoxic-appearingshe is normotensive without tachycardia and is currently afebrile. She does not have leukocytosis or elevated lactic acid level and also does not exhibit acute kidney injury. Additional recommendations are forthcoming based on her clinical course as unfolds History of Present Illness Reason for Consultation: Bilateral hydronephrosis History of Present Illness This is an 78-year-old female who was sent to the emergency department from longterm. Patient can provide no historical information whatsoever and the information was obtained from discussion with her daughter who was present at bedside as well as discussed with the treating emergency room staff. According to the longterm staff the patient had decreased oral intake throughout the day and was also noted to be febrile. As the patient had history of chronic urinary tract infections the patient was straight cath and a urine specimen was sent. There is been no reported nausea or vomiting. There were no reported falls or head injuries. Patient has followed in the past with Dr. Britt of [facility] physician group urology. In the past the patient has undergone a cystoscopy with urethral dilatation and transurethral section of bladder tumor and fulguration of bladder lesions (this was performed on 08/09/2023). Patient's most recent visit with Dr. Britt was on 06/26/2024 at which time he did an office cystoscopy which showed the patient's bladder had multiple areas of diverticulum and trabeculation with thickening throughout the bladder. There was concern the patient was potentially developing chronic urinary retention or incomplete bladder emptying issues. Following this procedure Dr. Britt plan on ordering a CT scan abdomen pelvis with the potential consideration of placing a chronic catheter or performing intermittent catheterization to manage the issues noted on cyst oscopy. Since arrival to the hospital the patient has had labs and imaging which independent reviewed. A humerus x-ray showed no evidence of fracture of the right humerus. CT scan of the head showed no acute intracranial abnormalities. A chest x-ray showed no evidence of pneumonia. A CT scan of the abdomen pelvis showed the patient had bilateral moderate to severe hydronephrosis which was new compared to her most recent scan. There is no evidence of obstructing kidney stone on this study. The patient's bladder showed mild bladder wall thickening with no stones. (Of note, the patient's most recent scan available for comparison was on 09/26/2023 which did not demonstrate severe hydronephrosis and only showed minimal right hydronephrosis.). Labs included CBC were white blood cell count platelet count were normal. Hemoglobin and hematocrit were 11.4 and 36.7. Coagulation studies were normal. Chemistry profile showed sodium is 154 with a normal potassium. BUN and creatinine were 32 and 1.0. Patient's lactic acid level was normal and not elevated. Urinalysis was positive for nitrites as well as 3+ leukocyte esterase and pyuria with greater than 50 white blood cells per high-power field. There was also 4+ bacteria on the study. Patient was tested for COVID, influenza, and RSVall of which were negative. At the time my interview the patient was sleeping in bed and was not in any distress Allergies Allergy/AdvReac Type Severity Reaction Status Date / Time levetiracetam Allergy Intermediate Rash Verified 07/04/24 23:18 adhesive tape Allergy Mild Rash Verified 07/04/24 23:18 naproxen Allergy Mild RASH Verified 07/04/24 23:18 morphine Allergy Unknown Unknown Verified 07/04/24 23:18 sulfamethoxazole AdvReac Mild Nausea Verified 07/04/24 23:18 [From Bactrim] trimethoprim [From Bactrim] AdvReac Mild Nausea Verified 07/04/24 23:18 Home Medications Medication Instructions Recorded Confirmed Type cholecalciferol (vitamin D3) 50 2,000 unit PO QAM 09/08/18 07/04/24 History mcg (2,000 unit) tablet (Vitamin D3) cyanocobalamin (vitamin B-12) 1,000 mcg PO QAM 09/08/18 07/04/24 History 1,000 mcg tablet (Vitamin B-12) acetaminophen 325 mg tablet 650 mg PO Q4H PRN pain 1-8 05/13/21 07/04/24 History pen needle, diabetic 31 gauge x #100 ea 08/17/22 07/04/24 Rx 3/16" (Sure-Fine Pen [place]) multivitamin (Daily-Devin tablet) 1 tab PO QAM 09/03/22 07/04/24 History polyethylene glycol 3350 17 17 g PO DAILY PRN constipation 01/29/23 07/04/24 Rx gram/dose oral powder (Miralax) #119 grams lancets 30 gauge (Safety Seal #100 ea 05/27/23 07/04/24 Rx Lancets) pen needle, diabetic, safety 30 #100 ea 05/27/23 07/04/24 Rx gauge x 1/3" (Novofine Autocover) ascorbic acid (vitamin C) 500 mg 500 mg PO BID 06/29/23 07/04/24 History capsule cranberry 500 mg capsule 500 mg PO QAM 06/29/23 07/04/24 History diclofenac sodium 1 % topical gel 2 g topical QID PRN pain #100 grams 06/29/23 07/04/24 Rx blood sugar diagnostic (OneTouch #100 ea 06/30/23 07/04/24 Rx Ultra Test strips) pantoprazole 40 mg tablet,delayed 40 mg PO QAM #30 tabs 07/26/23 07/04/24 Rx release rosuvastatin 20 mg tablet 20 mg PO HS #30 tabs 07/26/23 07/04/24 Rx escitalopram oxalate 20 mg tablet 20 mg PO QAM 07/30/23 07/04/24 History famotidine 20 mg tablet 20 mg PO 2000 07/30/23 07/04/24 History oxybutynin chloride 5 mg tablet 5 mg PO Q8H PRN bladder spasms #20 08/19/23 07/04/24 Rx tabs carbidopa 25 mg-levodopa 100 mg 2 tab PO TID 30 days #180 tabs 08/20/23 07/04/24 Rx tablet dextromethorphan-guaifenesin 10 10 ml PO Q8 PRN Cough 08/24/23 07/04/24 History mg-100 mg/5 mL oral syrup (Tussin DM) diclofenac sodium 1 % topical gel 2 g topical QID Pain 08/24/23 07/04/24 History fluticasone propionate 50 1 spray intranasal DAILY 08/24/23 07/04/24 History mcg/actuation nasal spray,suspension gabapentin 100 mg capsule 100 mg PO BID 05/16/24 07/04/24 History haloperidol 1 mg tablet 1 mg PO Q6 PRN BPSD/AGITATION 05/16/24 07/04/24 History lamotrigine 150 mg tablet 75 mg PO AMHS 05/16/24 07/04/24 History (Lamictal) mirtazapine 15 mg tablet 15 mg PO HS 05/16/24 07/04/24 History tramadol 50 mg tablet 50 mg PO Q6H PRN pain,severe 05/16/24 07/04/24 History Abh Gel 1 applic topical Q6 PRN 07/04/24 07/04/24 History BPSD/AGITATION acetaminophen 325 mg tablet 650 mg PO Q6 PRN temp > 100 07/04/24 07/04/24 History acetaminophen 650 mg rectal 650 mg VT Q6H PRN general 07/04/24 07/04/24 History suppository discomfort benztropine 1 mg/mL injection 1 mg IM BID PRN EPS 07/04/24 07/04/24 History solution ceftriaxone 1 gram solution for 1 g IM HS 07/04/24 07/04/24 History injection insulin aspart U-100 100 unit/mL 10 unit subcut DAILY 07/04/24 07/04/24 History subcutaneous solution insulin glargine 100 unit/mL (3 14 unit subcut HS 07/04/24 07/04/24 History mL) subcutaneous pen (Lantus Solostar U-100 Insulin) lidocaine HCl 10 mg/mL (1 %) 2.1 ml IM HS 07/04/24 07/04/24 History injection solution loperamide 2 mg tablet (Imodium 2 mg PO .Q 2 HOURS PRN Diarrhea 07/04/24 07/04/24 History A-D) methenamine hippurate 1 gram tablet 1 g PO AMHS 07/04/24 07/04/24 History olopatadine 0.1 % eye drops 1 drp OPB DAILY 07/04/24 07/04/24 History olopatadine 0.1 % eye drops 1 drp OPB HS PRN allergies 07/04/24 07/04/24 History ondansetron HCl 8 mg tablet 4 mg PO Q8H PRN n/v 07/04/24 07/04/24 History primidone 50 mg tablet 100 mg PO AMHS 07/04/24 07/04/24 History quetiapine 25 mg tablet 25 mg PO QAM 07/04/24 07/04/24 History quetiapine 25 mg tablet 50 mg PO QPM 07/04/24 07/04/24 History tamsulosin 0.4 mg capsule 0.4 mg PO DAILY 07/04/24 07/04/24 History Patient History Medical History Diabetes Anemia Urinary tract infection Hematuria Resides in group home facility all med hx obtained from [facility] Medical Record History of vertigo Varicose veins of both lower extremities History of trigeminal neuralgia Seizure-like activity Episode of syncope/near syncope- admitted to [facility] 02/2023 (diagnosed with UTI and acute metabolic encephalopathy) EEG 02/2023 WNL Parkinsonism Osteopenia History of orthostatic hypotension Hyperlipemia Memory loss Cognitive changes felt related to age per neurology Iliotibial band syndrome affecting right lower leg Insomnia Incontinence IBS (irritable bowel syndrome) Hypertension Essential tremor s/p bilateral DBS placement 2013 R>L hand per neuro records Diabetes mellitus, type 2 Heart murmur No significant heart valve disease per 02/2023 ECHO Depression COPD (chronic obstructive pulmonary disease) ? per [place] record, pt not on any oxygen or inhalers Bladder ulcer Following with urology Ataxia Per daughter in law- patient can usually ambulate with walker- occ will need wheelchair Anxiety History of falling Coccygeal fracture hx of Nausea Constipation Recurrent urinary tract infection Follows with ID and urology Sensorineural hearing loss (SNHL) of both ears GERD (gastroesophageal reflux disease) resolved, off PPI Surgical History Status post tubal ligation S/P sinus surgery S/P cholecystectomy S/P deep brain stimulator placement (08/20/16) Family History Father Cancer Mother Depression Hypertension Stroke Grandmother Breast cancer Mother Myocardial infarction Other Family history unknown Denies family history of Ovarian cancer Prostate cancer Colorectal cancer Social History Smoking Status: Never smoker Second Hand Exposure: No; Do You Dip or Chew Tobacco: No; Hx Alcohol Use: No Hx Substance Use: No Preferred Language: Slovenian Communication Ability: Effective Monotype Caster Required: No Beliefs That Will Affect Care: None marital status: / Current Living Situation: Personal Care Facility Current Living Situation Comment: lives at [facility] current occupational status: retired How many Children do You have: 3 Feels Safe at Home: Yes Childhood Exposure to Second-Hand Smoke: Yes Diet: regular caffeine: Yes Dental Care, Regularly: No Physical Activity Frequency: Does not Exercise Seatbelt Use: always Sunscreen Use: No Assistive Devices: Denture - Upper, Denture - Lower and Walker Review of Systems Review of Systems: Unobtainable due to cognitive status Physical Exam Constitutional: no acute distress Eyes: no conjunctival abnormality ENMT: Ears: no external ear abnormality Neck: trachea midline Respiratory: normal respiratory effort; no respiratory distress and no labored breathing Cardiovascular: Rate/Rhythm: regular rate and regular rhythm Gastrointestinal (Abdomen): Soft without distention. Musculoskeletal: No calf tenderness with squeezing of calves bilaterally Skin: no rashes Genitourinary: Percussion of bilateral flanks did not appear to elicit some slight CVA tenderness Results & Data Vital Signs (Past 12 Hours) Vital Signs Temp Pulse Pulse Resp BP BP Pulse Ox 07/05/24 00:17 66 07/04/24 23:25 70 15 172/72 H 96 07/04/24 22:59 70 21 156/92 H 96 07/04/24 22:45 160/87 H 07/04/24 22:31 173/78 H 07/04/24 22:15 70 18 95 07/04/24 22:15 162/69 H 07/04/24 21:45 163/72 H 07/04/24 21:30 157/75 H 07/04/24 21:30 71 17 157/75 H 96 07/04/24 21:17 70 20 161/70 H 94 07/04/24 21:15 161/70 H 07/04/24 21:15 70 17 93 07/04/24 20:46 72 25 H 166/73 H 96 05/13/25 20:31 37.3 C 72 20 158/69 H 94 07/04/24 20:30 87 24 95 07/04/24 20:26 72 07/04/24 20:23 158/69 H O2 Del Method 07/05/24 00:17 07/04/24 23:25 Room Air 07/04/24 22:59 Room Air 07/04/24 22:45 07/04/24 22:31 07/04/24 22:15 07/04/24 22:15 07/04/24 21:45 07/04/24 21:30 07/04/24 21:30 Room Air 07/04/24 21:17 Room Air 07/04/24 21:15 07/04/24 21:15 07/04/24 20:46 Room Air 07/04/24 20:31 Room Air 07/04/24 20:30 07/04/24 20:26 07/04/24 20:23 PG Care Time/CCT Total # of Minutes Spent Total Time Spent with Patient: Total time spent is greater than 50% in coordination of care (as documented) at patient's floor/unit and/or counseling patient: Coding Level of Care Code 77067 INT INP/OBS CARE 3/75MIN Diagnoses Hydronephrosis N13.30
[2024-07-05] MEDS ORDERED: DOCUSATE SODIUM 100 MG CAP PO PRN (02:26)
[2024-07-05] MEDS ORDERED: GLUCAGON FOR INJ 1 MG VIAL SQ PRN (02:26)
[2024-07-05] MEDS ORDERED: CARBOHYDRATES FOR HYPOGLYCEMIA PO PRN (02:26)
[2024-07-05] MEDS ORDERED: ONDANSETRON INJ 2 MG/ML 2 ML VIAL IV PRN (02:26)
[2024-07-05] MEDS ORDERED: GLUCOSE 40% GEL 15 GM TUBE PO PRN (02:26)
[2024-07-05] MEDS ORDERED: BENZTROPINE MESYLATE 1 MG/ML 2 ML AMP IM PRN (02:26)
[2024-07-05] MEDS ORDERED: DEXTROSE 5% 1,000 ML IV SCH (02:26)
[2024-07-05] MEDS ORDERED: GLUCOSE 10 TAB/TUBE PO PRN (02:26)
[2024-07-05] MEDS ORDERED: DEXTROSE 50% 50 ML SYRINGE IV PRN (02:26)
[2024-07-05] MEDS: DEXTROSE 5% 1,000 ML IV STA (03:55)
[2024-07-05 04:45] LABS: Hematocrit (blood only) 31.6 % (37.0-47.0); Hemoglobin 9.7 g/dl (12.0-16.0); Mean Corpuscular Hemoglobin 27.7 pg (25.0-34.0); Mean Corpuscular Hgb Conc 30.7 g/dL (32.0-36.0); Mean Corpuscular Volume 90.3 fL (80.0-100.0); Platelet Count 189 K/uL (130-400); RDW Coefficient of Variation 12.4 % (11.5-14.5); RDW Standard Deviation 41.1 fL (36.4-46.3); White Blood Count 7.18 K/ul (4.8-10.8)
[2024-07-05 05:00] LABS: BUN Creatinine Ratio 32.6 (10-20); Calcium 9.2 mg/dl (8.6-10.3); Creatinine Clr Calc Pharmacy 40.9 ml/min; Potassium 3.6 mmol/L (3.5-5.1)
[2024-07-05] MEDS: INSULIN ASPART PER UNIT CHARGE SC SCH ×2 (06:20→20:21)
[2024-07-05] MEDS: LANTUS PER UNIT CHARGE SQ SCH (08:53)
[2024-07-05] MEDS: CARBIDOPA/LEVODOPA 25/100MG TAB PO SCH (09:22)
[2024-07-05] MEDS: GABAPENTIN 100 MG CAP PO SCH (09:22)
[2024-07-05] MEDS: ESCITALOPRAM OXALATE 20 MG TAB PO SCH (09:22)
[2024-07-05] MEDS: PRIMIDONE 50 MG TAB PO SCH (09:23)
[2024-07-05] MEDS: QUEtiapine FUMARATE 25 MG TABLET PO SCH ×2 (09:23→20:22)
[2024-07-05] MEDS: lamoTRIgine 25 MG TAB PO SCH (09:23)
[2024-07-05] MEDS: TAMSULOSIN HCL 0.4 MG CAP PO SCH (09:23)
[2024-07-05] MEDS: DEXTROSE 5% 1,000 ML IV SCH (10:40)
--- NOTE | 2024-07-05 11:04 | Urology Progress Note ---
Date of Service July 05, 2024 Assessment & Plan (1) Hydronephrosis: Plan Afebrile with stable vitals at present Labs reviewed -No leukocytosis and normal renal function UCx prelim E.coli; BCx pending CT imaging shows b/l hydronephrosis and hydroureter to the level of the bladder, likely related to hx of chronic retention/incomplete emptying Kemp catheter placed for bladder decompression and maximum drainage No plan for acute intervention Continue antibiotic therapy and tailor per final culture sensitivities. Maintain Kemp catheter. Will arrange outpatient follow-up with our service. May need to consider chronic catheterization or intermittent catheterization m oving forward in order to manage incomplete emptying. Urology will follow along, please call with any questions/concerns. Admission and Anticipated Discharge Date Admission Date: July 04, 2024 Subjective Pt seen at bedside in the ED No acute distress Kemp draining yellow urine Review of Systems Constitutional: as per Subjective / HPI Genitourinary: as per Subjective / HPI Physical Exam Constitutional: no acute distress Respiratory: no respiratory distress and no labored breathing Neurologic: awake Genitourinary: Kemp intact Results & Data Vital Signs (Past 12 Hours) Vital Signs Temp Pulse Pulse Resp BP BP Pulse Ox 07/05/24 09:45 36.7 C 68 16 153/70 H 94 07/05/24 07:30 68 14 168/75 H 96 07/05/24 07:00 73 22 175/98 H 96 07/05/24 06:00 36.4 C L 68 16 170/98 H 94 07/05/24 05:00 36.5 C 69 15 151/75 H 92 07/05/24 03:21 36.4 C L 75 18 173/87 H 97 07/05/24 02:26 07/05/24 02:11 66 15 162/73 H 95 07/05/24 01:16 35.9 C L 66 14 160/82 H 95 07/05/24 01:00 148/67 H 07/05/24 01:00 148/67 H 07/05/24 01:00 148/67 H 07/05/24 00:45 126/77 07/05/24 00:17 66 07/05/24 00:15 145/68 H 07/05/24 00:00 144/75 H 07/04/24 23:45 138/64 07/04/24 23:30 154/74 H 07/04/24 23:25 70 15 172/72 H 96 07/04/24 23:15 172/72 H O2 Del Method 07/05/24 09:45 Room Air 07/05/24 07:30 07/05/24 07:00 07/05/24 06:00 Room Air 07/05/24 05:00 Room Air 07/05/24 03:21 Room Air 07/05/24 02:26 Room Air 07/05/24 02:11 Room Air 07/05/24 01:16 Room Air 07/05/24 01:00 07/05/24 01:00 07/05/24 01:00 07/05/24 00:45 07/05/24 00:17 07/05/24 00:15 07/05/24 00:00 07/04/24 23:45 07/04/24 23:30 07/04/24 23:25 Room Air 07/04/24 23:15 PG Care Time/CCT Total # of Minutes Spent Total Time Spent with Patient: Total time spent is greater than 50% in coordination of care (as documented) at patient's floor/unit and/or counseling patient: Coding Level of Care Code None Diagnoses Hydronephrosis N13.30
[2024-07-05 12:10] LABS: A calco-baum cmplx NotReported Not Detected (NotDetected); Bact fragilis Not Reported Not Detected (NotDetected); Blood Culture Id Panel See PCR Comment (NotDetected); C auris Not Reported Not Detected (NotDetected); Calbicans Not Reported Not Detected (NotDetected); Candida glabrata Not Reported Not Detected (NotDetected); Candida krusei Not Reported Not Detected (NotDetected); Cneoformans/gatti Not Reported Not Detected (NotDetected); Cparapsilosis Not Reported Not Detected (NotDetected); Ctropicalis Not Reported Not Detected (NotDetected); E cloacae compx Not Reported Not Detected (NotDetected); Efaecalis Not Reported Not Detected (NotDetected); Efaecium Not Reported Not Detected (NotDetected); Enterobacterales Not Reported DETECTED (NotDetected); Escherichia coli Not Reported DETECTED (NotDetected); H influenzae Not Reported Not Detected (NotDetected); IMP Resistant Gene Not Detected (NotDetected); K aerogenes Not Reported Not Detected (NotDetected); KPC Resistant Gene Not Detected (NotDetected); Koxytoca Not Reported Not Detected (NotDetected); Kpneumoniae grp Not Reported Not Detected (NotDetected); Lmonocyt Not Reported Not Detected (NotDetected); N meningitidis Not Reported Not Detected (NotDetected); NDM Resistant Gene Not Detected (NotDetected); OXA 48 Like Resistant Gene Not Detected (NotDetected); P aeruginosa Not Reported Not Detected (NotDetected); Proteus spp Not Reported Not Detected (NotDetected); Salmonella spp Not Reported Not Detected (NotDetected); Staph lugdunensis Not Reported Not Detected (NotDetected); Staph spp. Not Reported Not Detected (NotDetected); Staphaureus Not Reported Not Detected (NotDetected); Staphepi Not Reported Not Detected (NotDetected); Stenmaltophilia Not Reported Not Detected (NotDetected); Strep agal(GrpB) Not Reported Not Detected (NotDetected); Strep pneum Not Reported Not Detected (NotDetected); Strep pyog (GrpA) Not Reported Not Detected (NotDetected); Strep spp Not Reported Not Detected (NotDetected); VIM Resistant Gene Not Detected (NotDetected); mcr-1 Colistin Resistant Gene Not Detected (NotDetected)
[2024-07-05 12:16] LABS: CTX-M Resistant Gene DETECTED (NotDetected)
[2024-07-05 12:17] LABS: Enterobacterales DETECTED (NotDetected)
--- NOTE | 2024-07-05 14:11 | Electrocardiogram Report ---
Test Reason : Blood Pressure : */* mmHG Vent. Rate : 71 BPM Atrial Rate : * BPM P-R Int : * ms QRS Dur : 180 ms QT Int : 414 ms P-R-T Axes : * -12 159 degrees QTcB Int : 449 ms Poor data quality, interpretation may be adversely affected Sinus rhythm Minimal voltage criteria for LVH, may be normal variant Nonspecific ST abnormality Abnormal ECG Confirmed by Chaparro Esteban ([id number]) on 07/05/2024 2:11:22 PM Referred By: REFERRED SELF Confirmed By: Chaparro Esteban
--- NOTE | 2024-07-05 14:13 | Electrocardiogram Report ---
Test Reason : Blood Pressure : */* mmHG Vent. Rate : 73 BPM Atrial Rate : 73 BPM P-R Int : 98 ms QRS Dur : 72 ms QT Int : 364 ms P-R-T Axes : 42 -26 -20 degrees QTcB Int : 401 ms Poor data quality, interpretation may be adversely affected Sinus rhythm Nonspecific ST abnormality Abnormal ECG Confirmed by Chaparro Esteban ([id number]) on 07/05/2024 2:13:09 PM Referred By: REFERRED SELF Confirmed By: Chaparro Esteban
--- NOTE | 2024-07-05 14:53 | Hospitalist Progress Note ---
Date of Service July 05, 2024 Assessment & Plan (1) E coli bacteremia: (2) Urinary tract infection: (3) Hypernatremia: (4) Acute alteration in mental status: Plan This pt is an 78-year-old female with a h/o advanced dementia, Parkinson's, recurrent UTI, HTN, COPD, GERD, DMII, seizure disorder, depression, presenting from her [facility] with fever, decreased responsiveness, decreased oral intake, found to have UTI, bacteremia, and severe hypernatremia. #E. coli UTI and bacteremiapatient with history of ESBL E. coli UTI and now growing E. coli in urine and blood, ESBL. With fevers at [facility] but hypothermic here initially, no other evidence of sepsis, procal neg. CT Abd/pel here with mod-severe bilat hydronephrosis from urine retention, no stones. Follows with Urology and recently had cystoscopy which showed severe cystitis and discussed possibly needing to move towards straight cath 3x/day as she has retention issues. Butler placed on admission here. Of note, family reports pt has pulled Butler catheter out in the past and doesn't tolerate them well once she is more alert. Continue Ertapenem and recommend 10 day course of antibiotics for acute pyelonephritis and bacteremia Isolation precautions due to resistant organism Tylenol as needed for pain or fever - Appreciate Urology consult-f/u after discharge, no procedure needed now-can advance diet - if pulling at Butler may need to remove and perform straight cath 3x/day - continue Flomax - follow BCxs, Ur cx - follow CBC, BMP in AM #Acute metabolic encephalopathylikely multifactorial in setting of volume contraction, hypernatremia, UTI with underlying advanced dementia IV fluids, antibiotics Frequent orientation #Hypernatremiasodium = 154 on admission and now down to 152 with D5W.. Patient appears volume contracted on exam, dry mucus membranes. SHe was not eating or drinking for 2 days with her acute illness. Free water deficit = 3.1 L increase rate of D5W to 125 mL/h x 2 more L and reassess for need for further D5W after that Follow BMP in AM #Parkinsonism-has DBS in place Continue carbidopa levodopa, primidone at home dosage once can take po when more alert #Diabetes mellitus II-with hyperglycemia here due to D5W and acute illness continue Lantus, insulin sliding scale Continue Neurontin once more alert and able to take po meds #Hyperlipidemia Continue Crestor once able to take po meds #Depression/dementia-advanced, can recognize family, can feed self but does not ambulate, uses wheelchair, is not oriented to place or time, frequently pulls at IVs, Butler, and yells out for "help" even if nothing is needed Continue Seroquel 25 mg p.o. every morning, 50 mg p.o. every afternoon Continue Haldol prn-rare use at [facility] when is agitated, throwing things Continue benztropine as needed Continue Lexapro #Seizure disorder Continue Lamictal #GERD Continue Protonix Continue Pepcid DVT proph-add Lovenox SQ Dispo-continued stay on med tele Admission and Anticipated Discharge Date Admission Date: July 04, 2024 Subjective Pt sleeping but I discussed her care with son and DIL at bedside. Pt has advanced dementia, but has been very lethargic, running a fever x 2 days at [facility]. Pt typically recognizes her family members but is not oriented to place or time. Frequently yells out for help when feeling well and can feed herself. She has not wanted to eat or drink x 2 days now as per family. Physical Exam Constitutional: WD/WN, vitals as above + lethargic ENMT: severely dry tongue and mucus membranes Respiratory: normal respiratory effort, lungs clear to auscultation Cardiovascular: RRR, no murmur, no edema Gastrointestinal (Abdomen): normal bowel sounds, soft, nontender, no hepatosplenomegaly Neurologic: mild resting tremor right thumb Genitourinary: Butler in place draining clear yellow urine Results & Data Results & Data Vital Signs (Past 12 Hours) Vital Signs Temp Pulse Pulse Resp BP BP Pulse Ox 07/05/24 12:06 72 19 164/79 H 95 07/05/24 10:00 68 15 139/64 95 07/05/24 09:45 36.7 C 68 16 153/70 H 94 07/05/24 09:30 70 16 157/71 H 95 07/05/24 07:30 68 14 168/75 H 96 07/05/24 07:00 73 22 175/98 H 96 07/05/24 06:00 36.4 C L 68 16 170/98 H 94 07/05/24 05:00 36.5 C 69 15 151/75 H 92 05/14/25 03:21 36.4 C L 75 18 173/87 H 97 O2 Del Method 07/05/24 12:06 07/05/24 10:00 07/05/24 09:45 Room Air 07/05/24 09:30 07/05/24 07:30 07/05/24 07:00 07/05/24 06:00 Room Air 07/05/24 05:00 Room Air 07/05/24 03:21 Room Air Laboratory Results CBC, BMP, repeat BMP, Blood cxs, urine cx reviewed PG Care Time/CCT Total # of Minutes Spent Total Time Spent with Patient: Total time spent is greater than 50% in coordination of care (as documented) at patient's floor/unit and/or counseling patient: Coding Level of Care Code 61538 SUB INP/OBS CARE 3/50MIN Diagnoses E coli bacteremia R78.81; B96.20 Urinary tract infection N39.0; R31.9 Hematuria presence: with hematuria Urinary tract infection type: site unspecified Hypernatremia E87.0 Acute alteration in mental status R41.82 (2) Urinary tract infection Hematuria presence: with hematuria Urinary tract infection type: site unspecified Qualified Code(s): N39.0 - Urinary tract infection, site not specified; R31.9 - Hematuria, unspecified
[2024-07-05 15:27] LABS: BUN Creatinine Ratio 30.9 (10-20); Calcium 9.5 mg/dl (8.6-10.3); Potassium 3.4 mmol/L (3.5-5.1)
[2024-07-05] MEDS: POTASSIUM CHLORIDE / WTR 10 MEQ/100 ML PLCT IV ONE (16:30)
[2024-07-05] MEDS: INSULIN ASPART PER UNIT CHARGE SC STA (17:59)
[2024-07-05] MEDS: ACETAMINOPHEN 1,000 MG/100 ML VIAL IV PRN (17:59)
[2024-07-05] MEDS: FAMOTIDINE 20 MG TAB PO SCH (20:20)
[2024-07-05] MEDS: ROSUVASTATIN CALCIUM 20 MG TAB PO SCH (20:23)
[2024-07-05] MEDS: ERTAPENEM 1000MG 1,000 MG/10 ML SYR IV SCH (20:23)
[2024-07-05] MEDS: PANTOprazole 40 MG/10 ML SYR IV SCH (20:23)
[2024-07-06 08:06] LABS: Basophils # (auto) 0.02 K/uL (0.00-0.20); Basophils % (auto) 0.3 %; Eosinophils # (auto) 0.11 K/uL (0.00-0.50); Eosinophils % (auto) 1.8 %; Hematocrit (blood only) 31.1 % (37.0-47.0); Hemoglobin 9.8 g/dl (12.0-16.0); Immature Granulocytes # (auto) 0.02 K/uL (0.01-0.20); Immature Granulocytes % (auto) 0.3 %; Lymphocytes # (auto) 1.12 K/uL (1.20-3.40); Lymphocytes % (auto) 18.4 %; Mean Corpuscular Hemoglobin 27.9 pg (25.0-34.0); Mean Corpuscular Hgb Conc 31.5 g/dL (32.0-36.0); Mean Corpuscular Volume 88.6 fL (80.0-100.0); Mean Platelet Volume 10.2 fL (9.4-12.4); Monocytes # (auto) 0.49 K/uL (0.11-0.59); Neutrophils # (auto) 4.34 K/uL (1.40-6.50); Neutrophils % (auto) 71.2 %; Platelet Count 161 K/uL (130-400); RDW Coefficient of Variation 12.5 % (11.5-14.5); RDW Standard Deviation 39.7 fL (36.4-46.3); Red Blood Count 3.51 M/uL (4.20-5.40)
[2024-07-06 08:23] LABS: BUN Creatinine Ratio 31.6 (10-20); Calcium 9.5 mg/dl (8.6-10.3); Creatinine Clr Calc Pharmacy 48.7 ml/min; Potassium 3.4 mmol/L (3.5-5.1)
[2024-07-06] MEDS: ENOXAPARIN INJ 40 MG/0.4 ML SYR SQ SCH (08:27)
[2024-07-06] MEDS: DEXTROSE 5% 1,000 ML IV SCH (10:15)
[2024-07-06] MEDS: POTASSIUM CHLORIDE / WTR 10 MEQ/100 ML PLCT IV SCH (12:05)
--- NOTE | 2024-07-06 14:52 | Hospitalist Progress Note ---
Date of Service July 06, 2024 Assessment & Plan (1) E coli bacteremia: (2) Urinary tract infection: (3) Hypernatremia: (4) Acute alteration in mental status: Plan 78-year-old female with advanced dementia, Parkinson's, recurrent UTI, HTN, COPD, GERD, DMII, seizure disorder, depression, presenting from her [place] [facility] with fever, decreased responsiveness, decreased oral intake, found to have UTI, bacteremia, and severe hypernatremia. #ESBL E. coli UTI and bacteremia CT Abd/pel here with mod-severe bilat hydronephrosis from urine retention, no stones. Follows with Urology and recently had cystoscopy which showed severe cystitis and discussed possibly needing to move towards straight cath 3x/day as she has retention issues. Kemp placed on admission here. Of note, family reports pt has pulled Kemp catheter out in the past and doesn't tolerate them well once she is more alert. Continue Ertapenem and recommend 10 day course of antibiotics for acute pyelonephritis and bacteremia Isolation precautions due to resistant organism Tylenol as needed for pain or fever - Appreciate Urology consult-f/u after discharge, no procedure needed now - if pulling at Kemp may need to remove and perform straight cath 3x/day - continue Flomax - follow BCxs - E.coli in 1 bottle so far - US guided IV for discharge #Acute metabolic encephalopathy Multifactorial, improved past 48h, not near baseline yet IV fluids, antibiotics Frequent orientation #Hypernatremiasodium = 154 on admission. Improved to 150 with ongoing D5W -reordered D5W at 125 x 24h and check BMP in AM -oral intake currently inadequate to meet hydration needs #Parkinsonism-has DBS in place Continue carbidopa levodopa, primidone at home dosage. refusing meds in AM but took them for her family #Diabetes mellitus II-with hyperglycemia here due to D5W and acute illness continue Lantus, insulin sliding scale - BG 200s will increase short acting insulin Continue Neurontin once more alert and able to take po meds #Hyperlipidemia Continue Crestor #Depression/dementia-advanced, can recognize family, can feed self but does not ambulate, uses wheelchair, is not oriented to place or time, frequently pulls at IVs, Kemp, and yells out for "help" even if nothing is needed Continue Seroquel 25 mg p.o. every morning, 50 mg p.o. every afternoon Continue Haldol prn-rare use at [place] [facility] when is agitated, throwing things. Has not been agitated Continue benztropine as needed Continue Lexapro #Seizure disorder Continue Lamictal #GERD Continue Protonix Continue Pepcid DVT proph- enoxaparin Dispo- continued inpatient stay until hypernatremia corrected and maintaining oral hydration, anticipate finishing course of IV antibiotics at [facility] tele Updated family in room 07/06 Admission and Anticipated Discharge Date Admission Date: July 04, 2024 Subjective This morning seemed uncomfortable with left neck pain however once family arrived they reposition her and not having any pain currently her daughter was able to get her eat a few bites of food and take her medications. family reports that mental status has improved however not near her baseline yet. She did make a few verbal statements to them today said she wants to go home she did rub her daughter's shoulder Physical Exam Physical Exam: PHYSICAL EXAMINATION Last 24h vital signs reviewed, see documentation in flowsheet General: comfortable appearing, no distress, sitting upright in bed family at bedside HEENT: Normocephalic, atraumatic, pupils round and equal, sclerae anicteric, no conjunctival injection, dry mucus membranes tongue is coated but no discrete white patches, it is difficult for me to see her posterior pharynx visible area appears normal Lungs: Normal respiratory effort. Clear to auscultation bilaterally. No RRW Heart: Regular rate and rhythm, no murmurs. No JVD Abdomen: Soft, nontender, nondistended. Bowel sounds present. Extremities: Warm, dry, well-perfused. No extremity edema. Neuro: Alert and oriented x self and the fact that she is not home, not oriented to situation, very limited verbal output, masked facies, face symmetric, bradykinesia, upper extremity leadpipe rigidity without cogwheeling Psych: flat affect, no agitation Results & Data Results & Data Vital Signs (Past 12 Hours) Vital Signs Temp Pulse Pulse Resp BP BP Pulse Ox 07/06/24 11:54 36.4 C L 59 L 15 121/71 96 07/06/24 07:39 60 07/06/24 07:22 36.5 C 67 18 138/87 96 07/06/24 03:56 37 C 68 16 122/75 96 O2 Del Method 07/06/24 11:54 Room Air 07/06/24 07:39 07/06/24 07:22 Room Air 07/06/24 03:56 Room Air Laboratory Results notable for sodium 150 down from 152, potassium normal 3.4, creatinine normal no leukocytosis hemoglobin stable at 9.8 PG Care Time/CCT Total # of Minutes Spent Total Time Spent with Patient: Total time spent is greater than 50% in coordination of care (as documented) at patient's floor/unit and/or counseling patient: Coding Level of Care Code 43473 SUB INP/OBS CARE 350MIN Diagnoses E coli bacteremia R78.81; B96.20 Urinary tract infection N39.0; R31.9 Hematuria presence: with hematuria Urinary tract infection type: site unspecified Hypernatremia E87.0 Acute alteration in mental status R41.82 (2) Urinary tract infection Hematuria presence: with hematuria Urinary tract infection type: site unspecified Qualified Code(s): N39.0 - Urinary tract infection, site not specified; R31.9 - Hematuria, unspecified
--- NOTE | 2024-07-06 16:14 | Urology Progress Note ---
Date of Service July 06, 2024 Assessment & Plan (1) Hydronephrosis: Plan Afebrile with stable vitals at present Labs reviewed -No leukocytosis and normal renal function UCx grew E.coli ESBL; BCx prelim E.coli 02/25 CT imaging shows b/l hydronephrosis and hydroureter to the level of the bladder, likely related to hx of chronic retention/incomplete emptying Kemp catheter placed for bladder decompression and maximum drainage No plan for acute intervention Continue antibiotic therapy and tailor per final culture sensitivities. Maintain Kemp catheter. Will arrange outpatient follow-up with our service. May need to consider chronic catheterization or intermittent catheterization moving forward in order to manage incomplete emptying. Urology will sign-off, please call with any questions/concerns or changes in patient status Admission and Anticipated Discharge Date Admission Date: July 04, 2024 Subjective Pt seen at bedside Asleep on arrival, awakened to name but fell back asleep She did not answer any questions Appeared comfortable, no acute distress Family at bedside Kemp draining yellow urine No fevers Review of Systems Constitutional: as per Subjective / HPI Genitourinary: as per Subjective / HPI Physical Exam Constitutional: no acute distress Respiratory: no respiratory distress and no labored breathing Neurologic: Awakened to name Genitourinary: Kemp intact Results & Data Vital Signs (Past 12 Hours) Vital Signs Temp Pulse Pulse Resp BP Pulse Ox O2 Del Method 07/06/24 15:34 36.4 C L 68 18 130/76 96 Room Air 07/06/24 11:54 36.4 C L 59 L 15 121/71 96 Room Air 07/06/24 07:39 60 07/06/24 07:22 36.5 C 67 18 138/87 96 Room Air PG Care Time/CCT Total # of Minutes Spent Total Time Spent with Patient: Total time spent is greater than 50% in coordination of care (as documented) at patient's floor/unit and/or counseling patient: Coding Level of Care Code 54199 SUB INP/OBS CARE 03/18MIN Diagnoses Hydronephrosis N13.30
[2024-07-07 09:39] LABS: BUN Creatinine Ratio 24.4 (10-20); Calcium 8.9 mg/dl (8.6-10.3); Creatinine Clr Calc Pharmacy 47.9 ml/min; Potassium 3.3 mmol/L (3.5-5.1)
[2024-07-07] MEDS: POTASSIUM CHLORIDE CRTAB 20 MEQ TABCR PO ONE (12:55)
[2024-07-07] MEDS: haloperidoL 1 MG TAB PO PRN (14:51)
--- NOTE | 2024-07-07 16:01 | Hospitalist Progress Note ---
Date of Service July 07, 2024 Assessment & Plan (1) E coli bacteremia: (2) Urinary tract infection: (3) Hypernatremia: (4) Acute alteration in mental status: Plan 78-year-old female with advanced dementia, Parkinson's, recurrent UTI, HTN, COPD, GERD, DMII, seizure disorder, depression, [facility] with fever, decreased responsiveness, decreased oral intake, found to have UTI, bacteremia, and severe hypernatremia. #ESBL E. coli UTI and bacteremia CT Abd/pel here with mod-severe bilat hydronephrosis from urine retention, no stones. Follows with Urology and recently had cystoscopy which showed severe cystitis and discussed possibly needing to move towards straight cath 3x/day as she has retention issues. Santana placed on admission here. Of note, family reports pt has pulled Santana catheter out in the past and doesn't tolerate them well once she is more alert. Continue Ertapenem and recommend 10 day course of antibiotics for acute pyelonephritis and bacteremia. Could be IM if issues keeping PIV. - Appreciate Urology consult-f/u after discharge, no procedure needed now - if pulling at Santana may need to remove and perform straight cath 3x/day - continue Flomax - follow BCxs - E.coli in 1 bottle so far and in urine - US guided IV for discharge #Acute metabolic encephalopathy Multifactorial, slowly improving. Much more verbal today but hallucinating IV fluids, antibiotics Frequent orientation - has her PRN haldol for agitation or disturbing hallucinations #Hypernatremiasodium = 154 on admission. Improved to 140 with D5W -stop D5W, trial of oral intake, monitor hydration status and qAM BMP #Parkinsonism-has DBS in place Continue carbidopa levodopa, primidone at home dosage. #Diabetes mellitus II-with hyperglycemia here due to D5W and acute illness continue Lantus, short acting insulin PRN. Expect drop in BG, stopping D5W. Reduce dose of glargine #Hyperlipidemia Continue Crestor #Depression/dementia-advanced, can recognize family, can feed self but does not ambulate, uses wheelchair, is not oriented to place or time, frequently pulls at IVs, Santana, and yells out for "help" even if nothing is needed Continue Seroquel 25 mg p.o. every morning, 50 mg p.o. every afternoon Continue Haldol prn-rare use at [facility] when is agitated, throwing things. Continue benztropine as needed Continue Lexapro #Seizure disorder Continue Lamictal #GERD Continue Protonix Continue Pepcid DVT proph- enoxaparin Dispo- continued inpatient stay until taking adequate po, discharge planned back to [facility] Updated family in room 07/06 Admission and Anticipated Discharge Date Admission Date: July 04, 2024 Subjective crying out a lot and describing some hallucinations, but much more alert and much more verbal today per nursing has eaten/drank a little bit Physical Exam 2 Physical Exam: PHYSICAL EXAMINATION Last 24h vital signs reviewed, see documentation in flowsheet General: awake lying in bed, initially calm but got agitated during visit HEENT: mucus membranes now moist. tongue coating improved. no white patches in pharynx Lungs: Normal respiratory effort. Clear to auscultation bilaterally. No RRW Heart: Regular rate and rhythm, no murmurs. No JVD Abdomen: Soft, nontender, nondistended. Bowel sounds present. Extremities: Warm, dry, well-perfused. No extremity edema. : santana clear yellow urine Neuro: Alert and oriented x self and stating she wants to go home to [place]. moving four ext. Much more alert and verbal. Mildly agitated. Tremor RUE. Results & Data Results & Data Vital Signs (Past 12 Hours) Vital Signs Temp Pulse Resp BP Pulse Ox O2 Del Method 07/07/24 11:34 36.6 C 80 18 125/63 96 Room Air 07/07/24 09:56 Room Air 07/07/24 08:05 36.4 C L 74 16 132/75 96 Room Air Laboratory Results 07/06/24 07:44 07/07/24 09:10 PG Care Time/CCT Total # of Minutes Spent Total Time Spent with Patient: Total time spent is greater than 50% in coordination of care (as documented) at patient's floor/unit and/or counseling patient: Coding Level of Care Code 62864 SUB INP/OBS CARE 2/35MIN Diagnoses E coli bacteremia R78.81; B96.20 Urinary tract infection N39.0; R31.9 Hematuria presence: with hematuria Urinary tract infection type: site unspecified Hypernatremia E87.0 Acute alteration in mental status R41.82 (2) Urinary tract infection Hematuria presence: with hematuria Urinary tract infection type: site unspecified Qualified Code(s): N39.0 - Urinary tract infection, site not specified; R31.9 - Hematuria, unspecified
[2024-07-07] MEDS: LANTUS PER UNIT CHARGE SQ SCH (20:41)
[2024-07-07] MEDS: PANTOprazole 40 MG TAB PO SCH (20:42)
--- NOTE | 2024-07-07 20:43 | Communication Note ---
Date of Service: July 07, 2024 I updated her daughter Brandy by phone tez She did eat her dinner well and was able to feed herself some which is improvement. She was very paranoid this afternoon.
[2024-07-08 07:47] LABS: BUN Creatinine Ratio 21.9 (10-20); Calcium 9.2 mg/dl (8.6-10.3); Creatinine Clr Calc Pharmacy 53.8 ml/min; Potassium 3.5 mmol/L (3.5-5.1)
--- NOTE | 2024-07-08 16:30 | Hospitalist Progress Note ---
Date of Service July 08, 2024 Assessment & Plan (1) E coli bacteremia: (2) Urinary tract infection: (3) Hypernatremia: (4) Acute alteration in mental status: Plan 78-year-old female with advanced dementia, Parkinson's, recurrent UTI, HTN, COPD, GERD, DMII, seizure disorder, depression, presenting from her [facility] with fever, decreased responsiveness, decreased oral intake, found to have UTI, bacteremia, and severe hypernatremia. #ESBL E. coli UTI and bacteremia CT Abd/pel here with mod-severe bilat hydronephrosis from urine retention, no stones. Follows with Urology and recently had cystoscopy which showed severe cystitis and discussed possibly needing to move towards straight cath 3x/day as she has retention issues. Santana placed on admission here. Of note, family reports pt has pulled Santana catheter out in the past and doesn't tolerate them well once she is more alert. Continue Ertapenem and recommend 10 day course of antibiotics for acute pyelonephritis and bacteremia. Could be IM if issues keeping PIV. - Appreciate Urology consult-f/u after discharge, no procedure needed now - if pulling at Santana may need to remove and perform straight cath 3x/day - continue Flomax - follow BCxs - E.coli in 1 bottle so far and in urine. no change - US guided IV for discharge #Acute metabolic encephalopathy Multifactorial, slowly improving. has been waxing and waning but generally improving consulted speech therapy since she has been on honey thick liquids and is not hydrating well, fluid texture back to thin liquids which I agree with because thickeners do not prevent aspiration/aspiration pneumonia or pneumonitis Frequent orientation - has her PRN haldol for agitation or disturbing hallucinations #Hypernatremiasodium = 154 on admission. Improved to 140 with D5W, now 146 upper end of normal - continue trial of oral intake now on thin liquids, a.m. BMP #Parkinsonism-has DBS in place Continue carbidopa levodopa, primidone at home dosage. #Diabetes mellitus II-with hyperglycemia here due to D5W and acute illness continue Lantus, short acting insulin PRN. changed to regular diet for palatability, removed carb count insulin. no benefit of tight control given her overall health status #Hyperlipidemia Continue Crestor #Depression/dementia-advanced, can recognize family, can feed self but does not ambulate, uses wheelchair, is not oriented to place or time, frequently pulls at IVs, Santana, and yells out for "help" even if nothing is needed Continue Seroquel 25 mg p.o. every morning, 50 mg p.o. every afternoon Continue Haldol prn-rare use at [facility] when is agitated, throwing things. Continue benztropine as needed Continue Lexapro #Seizure disorder Continue Lamictal #GERD Continue Protonix Continue Pepcid DVT proph- enoxaparin Dispo- continued inpatient stay until taking adequate po, discharge planned back to [facility] Updated her daughter in room 07/08 Admission and Anticipated Discharge Date Admission Date: July 04, 2024 Subjective she is awake today alert eating with her daughter but very slowly only is taking a few bite can sip liquids when brought up to her mouth however unable to feed or drink by herself yet not currently talking, therapist reported she was very active and talkative for morning session however good sleep last night and no agitation reported Physical Exam 2 Physical Exam: PHYSICAL EXAMINATION Last 24h vital signs reviewed, see documentation in flowsheet General: awake and sitting up in bed eating HEENT: mucus membranes now moist. tongue coating more or less resolved after good oral care. Lungs: Normal respiratory effort. Clear to auscultation bilaterally. No RRW Heart: Regular rate and rhythm, no murmurs. No JVD Abdomen: Soft, nontender, nondistended. Bowel sounds present. Extremities: Warm, dry, well-perfused. No extremity edema. : santana clear yellow urine Neuro: Alert and oriented x self not talking right now. moving four ext. right upper extremity rest tremor. Severe bradykinesia masked facies. No agitation Results & Data Results & Data Vital Signs (Past 12 Hours) Vital Signs Temp Pulse Resp BP Pulse Ox O2 Del Method 07/08/24 10:38 Room Air 07/08/24 08:25 36.6 C 71 16 125/71 95 Room Air Laboratory Results 07/06/24 07:44 07/08/24 07:13 PG Care Time/CCT Total # of Minutes Spent Total Time Spent with Patient: Total time spent is greater than 50% in coordination of care (as documented) at patient's floor/unit and/or counseling patient: Coding Level of Care Code 60022 SUB INP/OBS CARE 2/35MIN Diagnoses E coli bacteremia R78.81; B96.20 Urinary tract infection N39.0; R31.9 Hematuria presence: with hematuria Urinary tract infection type: site unspecified Hypernatremia E87.0 Acute alteration in mental status R41.82 (2) Urinary tract infection Hematuria presence: with hematuria Urinary tract infection type: site unspecified Qualified Code(s): N39.0 - Urinary tract infection, site not specified; R31.9 - Hematuria, unspecified
[2024-07-08] MEDS: ACETAMINOPHEN 500 MG TAB PO PRN (21:08)
[2024-07-09 08:30] LABS: BUN Creatinine Ratio 28.4 (10-20); Calcium 9.3 mg/dl (8.6-10.3); Creatinine Clr Calc Pharmacy 48.5 ml/min; Potassium 3.5 mmol/L (3.5-5.1)
--- NOTE | 2024-07-09 13:11 | Hospitalist Progress Note ---
Date of Service July 09, 2024 Assessment & Plan (1) E coli bacteremia: (2) Urinary tract infection: (3) Hypernatremia: (4) Acute alteration in mental status: Plan 78-year-old female with advanced dementia, Parkinson's, recurrent UTI, HTN, COPD, GERD, DMII, seizure disorder, depression, presenting from her care home with fever, decreased responsiveness, decreased oral intake, found to have UTI, bacteremia, and severe hypernatremia. #ESBL E. coli UTI and bacteremia CT Abd/pel here with mod-severe bilat hydronephrosis from urine retention, no stones. Follows with Urology and recently had cystoscopy which showed severe cystitis and discussed possibly needing to move towards straight cath 3x/day as she has retention issues. Santana placed on admission here. Of note, family reports pt has pulled Santana catheter out in the past and doesn't tolerate them well once she is more alert. Continue Ertapenem and recommend 10 day course of antibiotics for acute pyelonephritis and bacteremia. Could be IM if issues keeping PIV. - Appreciate Urology consult-f/u after discharge, no procedure needed now - if pulling at Santana may need to remove and perform straight cath 3x/day - continue Flomax - follow BCxs - E.coli in 1 bottle so far and in urine. no change - US guided IV for discharge - stable, continue ertapenem #Acute metabolic encephalopathy Multifactorial, slowly improving. has been waxing and waning but generally improving consulted speech therapy since she has been on honey thick liquids and is not hydrating well, fluid texture back to thin liquids which I agree with because thickeners do not prevent aspiration/aspiration pneumonia or pneumonitis. May need to allow straws since she is having significant difficulty lifting cup to drink Frequent orientation - has her PRN haldol for agitation or disturbing hallucinations #Hypernatremiasodium = 154 on admission. resolved with D5W, recurred with trial of po x 48h - resume D5W at 125 x 1L to correct Na of 148 - staff and DIL working on getting a smaller sippy cup, standard one is too heavy. Trying small paper coffee cup with lid. May need to allow straw. This is the barrier to discharge at this time. - AM BMP #Parkinsonism-has DBS in place Continue carbidopa levodopa, primidone at home dosage. #Diabetes mellitus II-with hyperglycemia here due to D5W and acute illness continue Lantus increased back to 7 bid to account for D5, short acting insulin PRN. changed to regular diet for palatability, removed carb count insulin. no benefit of tight control given her overall health status #Hyperlipidemia Continue Crestor #Depression/dementia-advanced, can recognize family, can feed self but does not ambulate, uses wheelchair, is not oriented to place or time, frequently pulls at IVs, Santana, and yells out for "help" even if nothing is needed Continue Seroquel 25 mg p.o. every morning, 50 mg p.o. every afternoon Continue Haldol prn-rare use at care home when is agitated, throwing things. Continue benztropine as needed Continue Lexapro #Seizure disorder Continue Lamictal #GERD Continue Protonix Continue Pepcid DVT proph- enoxaparin Dispo- continued inpatient stay until taking adequate po, discharge planned back to [facility] Updated her daughter in room 07/09 Admission and Anticipated Discharge Date Admission Date: July 04, 2024 Subjective Sodium rising on trial of ad nicolette po intake, even with thin liquids Seen with daughter in law and RN in room Eating about half of meals Drinking avidly but cannot lift cup to mouth Physical Exam Physical Exam: PHYSICAL EXAMINATION Last 24h vital signs reviewed, see documentation in flowsheet General: awake and sitting up in bed HEENT: mucus membranes now moist. tongue coating completely resolved Lungs: Normal respiratory effort. Clear to auscultation bilaterally. No RRW Heart: Regular rate and rhythm, no murmurs. No JVD Abdomen: Soft, nontender, nondistended. Bowel sounds present. Extremities: Warm, dry, well-perfused. No extremity edema. : santana clear yellow urine Neuro: Alert and oriented x self not talking right now. moving four ext. right upper extremity >LUE rest tremor. Severe bradykinesia masked facies. No agitation Results & Data Results & Data Vital Signs (Past 12 Hours) Vital Signs Temp Pulse Resp BP Pulse Ox O2 Del Method 07/09/24 11:51 36.4 C L 64 18 125/66 97 Room Air 07/09/24 11:50 Room Air 07/09/24 08:49 36.4 C L 64 16 162/76 H 98 Room Air Laboratory Results Na 148 PG Care Time/CCT Total # of Minutes Spent Total Time Spent with Patient: Total time spent is greater than 50% in coordination of care (as documented) at patient's floor/unit and/or counseling patient: Coding Level of Care Code 13834 SUB INP/OBS CARE MIN Diagnoses E coli bacteremia R78.81; B96.20 Urinary tract infection N39.0; R31.9 Hematuria presence: with hematuria Urinary tract infection type: site unspecified Hypernatremia E87.0 Acute alteration in mental status R41.82 (2) Urinary tract infection Hematuria presence: with hematuria Urinary tract infection type: site unspecified Qualified Code(s): N39.0 - Urinary tract infection, site not specified; R31.9 - Hematuria, unspecified
[2024-07-09] MEDS: DEXTROSE 5% 1,000 ML IV SCH (13:50)
[2024-07-09] MEDS: LANTUS PER UNIT CHARGE SQ SCH (21:00)
[2024-07-10 07:35] LABS: BUN Creatinine Ratio 25.6 (10-20); Calcium 9.1 mg/dl (8.6-10.3); Creatinine Clr Calc Pharmacy 47.9 ml/min; Potassium 3.5 mmol/L (3.5-5.1)
[2024-07-10] MEDS: SODIUM CHLORIDE 0.45 % 1,000 ML IV SCH (09:43)
--- NOTE | 2024-07-10 18:06 | Hospitalist Progress Note ---
Date of Service July 10, 2024 Assessment & Plan (1) E coli bacteremia: (2) Urinary tract infection: (3) Hypernatremia: (4) Acute alteration in mental status: Plan 78-year-old female with advanced dementia, Parkinson's, recurrent UTI, HTN, COPD, GERD, DMII, seizure disorder, depression, presenting from her intermediate with fever, decreased responsiveness, decreased oral intake, found to have UTI, bacteremia, and severe hypernatremia. #ESBL E. coli UTI and bacteremia CT Abd/pel here with mod-severe bilat hydronephrosis from urine retention, no stones. Follows with Urology and recently had cystoscopy which showed severe cystitis and discussed possibly needing to move towards straight cath 3x/day as she has retention issues. Santana placed on admission here. Of note, family reports pt has pulled Santana catheter out in the past and doesn't tolerate them well once she is more alert. Continue Ertapenem and recommend 10 day course of antibiotics for acute pyelonephritis and bacteremia. Could be IM if issues keeping PIV. - Appreciate Urology consult-f/u after discharge, no procedure needed now - if pulling at Santana may need to remove and perform straight cath 3x/day - continue Flomax - BCxs E.coli in 1 bottle and in urine. finalized - stable, continue ertapenem #Acute metabolic encephalopathy Multifactorial. she is definitely better than last week but is not at her baseline and has really been unchanged the last 72 hours the current difficulty is she is not eating and drinking very well and she is not maintaining her hydration a lot of this has to do with her inability to lift a cup to drink consulted speech therapy since she has been on honey thick liquids and is not hydrating well, fluid texture back to thin liquids which I agree with because thickeners do not prevent aspiration/aspiration pneumonia or pneumonitis. May need to allow straws since she is having significant difficulty lifting cup to drink Frequent orientation - has her PRN haldol for agitation or disturbing hallucinations #Hypernatremiasodium = 154 on admission. resolved with D5W, recurred with trial of po x 48h. normalized today, ordered maintenance IV fluids with 1/2 normal saline. may do another trial of oral intake in a day or 2 if repeatedly failing will need to have discussion about goals of care, is highly likely she would pull out a temporary feeding tube given her past behaviors - AM BMP #Parkinsonism-has DBS in place Continue carbidopa levodopa, primidone at home dosage. #Diabetes mellitus II-with hyperglycemia here due to D5W and acute illness continue Lantus decreased back to for bid now off D5, short acting insulin PRN. changed to regular diet for palatability, removed carb count insulin. no benefit of tight control given her overall health status #Hyperlipidemia Continue Crestor #Depression/dementia-advanced, can recognize family, can feed self but does not ambulate, uses wheelchair, is not oriented to place or time, frequently pulls at IVs, Santana, and yells out for "help" even if nothing is needed Continue Seroquel 25 mg p.o. every morning, 50 mg p.o. every afternoon Continue Haldol prn-rare use at intermediate when is agitated, throwing things. Continue benztropine as needed Continue Lexapro #Seizure disorder Continue Lamictal #GERD Continue Protonix Continue Pepcid DVT proph- enoxaparin Dispo- continued inpatient stay until taking adequate po, discharge planned back to [facility] Updated her daughter in room 07/09 Admission and Anticipated Discharge Date Admission Date: July 04, 2024 Subjective Nadia has been consistently crying out all day she is awake, denied any pain but was not very verbal with me Physical Exam 2 Physical Exam: PHYSICAL EXAMINATION Last 24h vital signs reviewed, see documentation in flowsheet General: lying in bed awake crying out help HEENT: moist mucous membranes Lungs: Normal respiratory effort. Clear to auscultation bilaterally. No RRW Heart: Regular rate and rhythm, no murmurs. No JVD Abdomen: Soft, nontender, nondistended. Bowel sounds present. Extremities: Warm, dry, well-perfused. No extremity edema. : santana clear yellow urine Neuro: not oriented to place or situation, not very talkative right now, mildly agitated. moving four ext. right upper extremity >LUE rest tremor. Severe bradykinesia masked facies. Results & Data Results & Data Vital Signs (Past 12 Hours) Vital Signs Temp Pulse Pulse Resp BP Pulse Ox O2 Del Method 07/10/24 15:17 36.6 C 64 18 118/62 97 Room Air 07/10/24 11:56 36.5 C 60 20 127/68 96 Room Air 07/10/24 09:02 Room Air 07/10/24 07:53 36.9 C 62 12 127/70 96 Room Air Laboratory Results 07/06/24 07:44 07/10/24 06:26 PG Care Time/CCT Total # of Minutes Spent Total Time Spent with Patient: Total time spent is greater than 50% in coordination of care (as documented) at patient's floor/unit and/or counseling patient: Coding Level of Care Code 67875 SUB INP/OBS CARE MIN Diagnoses E coli bacteremia R78.81; B96.20 Urinary tract infection N39.0; R31.9 Hematuria presence: with hematuria Urinary tract infection type: site unspecified Hypernatremia E87.0 Acute alteration in mental status R41.82 (2) Urinary tract infection Hematuria presence: with hematuria Urinary tract infection type: site unspecified Qualified Code(s): N39.0 - Urinary tract infection, site not specified; R31.9 - Hematuria, unspecified
[2024-07-10] MEDS: LANTUS PER UNIT CHARGE SQ SCH (20:06)
[2024-07-11 07:27] LABS: BUN Creatinine Ratio 19.5 (10-20); Calcium 8.9 mg/dl (8.6-10.3); Creatinine Clr Calc Pharmacy 50.1 ml/min; Potassium 3.5 mmol/L (3.5-5.1)
[2024-07-11] MEDS: POLYETHYLENE (MIRALAX) 17 GM PACK PO PRN (12:45)
--- NOTE | 2024-07-11 22:33 | Hospitalist Progress Note ---
Date of Service July 11, 2024 Assessment & Plan (1) E coli bacteremia: (2) Urinary tract infection: (3) Hypernatremia: (4) Acute alteration in mental status: Plan 78-year-old female with advanced dementia, Parkinson's, recurrent UTI, HTN, COPD, GERD, DMII, seizure disorder, depression, presenting from her halfway with fever, decreased responsiveness, decreased oral intake, found to have UTI, bacteremia, and severe hypernatremia. #ESBL E. coli UTI and bacteremia CT Abd/pel here with mod-severe bilat hydronephrosis from urine retention, no stones. Follows with Urology and recently had cystoscopy which showed severe cystitis and discussed possibly needing to move towards straight cath 3x/day as she has retention issues. Santana placed on admission here. Of note, family reports pt has pulled Santana catheter out in the past and doesn't tolerate them well once she is more alert. Continue Ertapenem and recommend 10 day course of antibiotics for acute pyelonephritis and bacteremia. Could be IM if issues keeping PIV. - Appreciate Urology consult-f/u after discharge, no procedure needed now - if pulling at Santana may need to remove and perform straight cath 3x/day - continue Flomax - BCxs E.coli in 1 bottle and in urine. finalized - stable, continue ertapenem #Acute metabolic encephalopathy Multifactorial. she is definitely better than last week but is not at her baseline and has really been unchanged the last 72 hours the current difficulty is she is not eating and drinking very well and she is not maintaining her hydration a lot of this has to do with her inability to lift a cup to drink consulted speech therapy since she has been on honey thick liquids and is not hydrating well, fluid texture back to thin liquids which I agree with because thickeners do not prevent aspiration/aspiration pneumonia or pneumonitis. May need to allow straws since she is having significant difficulty lifting cup to drink Frequent orientation - has her PRN haldol for agitation or disturbing hallucinations #Hypernatremiasodium = 154 on admission. resolved with D5W, recurred with trial of po x 48h. normalized today, ordered maintenance IV fluids with 1/2 normal saline. Will keep IVF for now as patient may be fluid deficient due to having hypernatremia. will do another trial of oral intake on 11/13 if repeatedly failing will need to have discussion about goals of care, is highly likely she would pull out a temporary feeding tube given her past behaviors - AM BMP #Parkinsonism-has DBS in place Continue carbidopa levodopa, primidone at home dosage. #Diabetes mellitus II-with hyperglycemia here due to D5W and acute illness continue Lantus decreased back to for bid now off D5, short acting insulin PRN. changed to regular diet for palatability, removed carb count insulin. no benefit of tight control given her overall health status #Hyperlipidemia Continue Crestor #Depression/dementia-advanced, can recognize family, can feed self but does not ambulate, uses wheelchair, is not oriented to place or time, frequently pulls at IVs, Santana, and yells out for "help" even if nothing is needed Continue Seroquel 25 mg p.o. every morning, 50 mg p.o. every afternoon Continue Haldol prn-rare use at halfway when is agitated, throwing things. Continue benztropine as needed Continue Lexapro #Seizure disorder Continue Lamictal #GERD Continue Protonix Continue Pepcid DVT proph- enoxaparin Dispo- continued inpatient stay until taking adequate po, discharge planned back to [facility] Updated her daughter in room 07/09 Admission and Anticipated Discharge Date Admission Date: July 04, 2024 Subjective Patient is a poor historian. She appears calm and reports no discomfort today. Physical Exam Physical Exam: General: lying in bed awake crying out help HEENT: moist mucous membranes Lungs: Normal respiratory effort. Clear to auscultation bilaterally. No RRW Heart: Regular rate and rhythm, no murmurs. No JVD Abdomen: Soft, nontender, nondistended. Bowel sounds present. Extremities: Warm, dry, well-perfused. No extremity edema. : santana clear yellow urine Neuro: not oriented to place or situation, able to converse Results & Data Results & Data Vital Signs (Past 12 Hours) Vital Signs Temp Pulse Resp BP Pulse Ox O2 Del Method 07/11/24 20:51 Room Air 07/11/24 15:53 36.6 C 61 18 127/69 99 Room Air PG Care Time/CCT Total # of Minutes Spent Total Time Spent with Patient: Total time spent is greater than 50% in coordination of care (as documented) at patient's floor/unit and/or counseling patient: Coding Level of Care Code 24032 SUB INP/OBS CARE MIN Diagnoses E coli bacteremia R78.81; B96.20 Urinary tract infection N39.0; R31.9 Hematuria presence: with hematuria Urinary tract infection type: site unspecified Hypernatremia E87.0 Acute alteration in mental status R41.82 (2) Urinary tract infection Hematuria presence: with hematuria Urinary tract infection type: site unspecified Qualified Code(s): N39.0 - Urinary tract infection, site not spec ified; R31.9 - Hematuria, unspecified
[2024-07-12 06:33] LABS: Hematocrit (blood only) 28.1 % (37.0-47.0); Hemoglobin 9.3 g/dl (12.0-16.0); Mean Corpuscular Hemoglobin 27.9 pg (25.0-34.0); Mean Corpuscular Hgb Conc 33.1 g/dL (32.0-36.0); Mean Corpuscular Volume 84.4 fL (80.0-100.0); Mean Platelet Volume 10.6 fL (9.4-12.4); Platelet Count 162 K/uL (130-400); RDW Coefficient of Variation 12.4 % (11.5-14.5); RDW Standard Deviation 36.5 fL (36.4-46.3); Red Blood Count 3.33 M/uL (4.20-5.40); White Blood Count 4.51 K/ul (4.8-10.8)
[2024-07-12 07:03] LABS: BUN Creatinine Ratio 17.4 (10-20); Calcium 8.9 mg/dl (8.6-10.3); Creatinine Clr Calc Pharmacy 55.9 ml/min; Potassium 3.4 mmol/L (3.5-5.1)
[2024-07-12] MEDS: POLYETHYLENE (MIRALAX) 17 GM PACK PO SCH (14:40)
[2024-07-12] MEDS: POTASSIUM CHLORIDE CRTAB 20 MEQ TABCR PO SCH (14:56)
--- NOTE | 2024-07-12 20:10 | XRay Report ---
INDICATION: Abdominal pain TECHNIQUE: Portable supine upright view radiograph of the abdomen was obtained. COMPARISON: Abdominal radiographs December 28, 2022. FINDINGS: There is mild colonic gas distention. Stool ball is noted over the rectal vault. Mild distention of the stomach is not specific. Evaluation for free air is limited due to supine technique. Surgical clips over the right upper quadrant of the abdomen, presumably from cholecystectomy. Calcifications over the expected region of the splenic arteries. IMPRESSION: Stool ball over the rectum and mild colonic gas distention could be due to clinically suspected constipation/fecal retention. Mild distention of the stomach is not specific. Electronically signed by Hill Calixto 07-12-2024 8:10 PM
--- NOTE | 2024-07-12 20:17 | Hospitalist Progress Note ---
Date of Service July 12, 2024 Assessment & Plan (1) E coli bacteremia: (2) Urinary tract infection: (3) Hypernatremia: (4) Acute alteration in mental status: Plan 78-year-old female with advanced dementia, Parkinson's, recurrent UTI, HTN, COPD, GERD, DMII, seizure disorder, depression, presenting from her shelter with fever, decreased responsiveness, decreased oral intake, found to have UTI, bacteremia, and severe hypernatremia. #ESBL E. coli UTI and bacteremia CT Abd/pel here with mod-severe bilat hydronephrosis from urine retention, no stones. Follows with Urology and recently had cystoscopy which showed severe cystitis and discussed possibly needing to move towards straight cath 3x/day as she has retention issues. Santana placed on admission here. Of note, family reports pt has pulled Santana catheter out in the past and doesn't tolerate them well once she is more alert. Continue Ertapenem and recommend 10 day course of antibiotics for acute pyelonephritis and bacteremia. Tomorrow will be the 10th dose. - Appreciate Urology consult-f/u after discharge, no procedure needed now - if pulling at Santana may need to remove and perform straight cath 3x/day - continue Flomax - BCxs E.coli in 1 bottle and in urine. finalized - stable, continue ertapenem #Acute metabolic encephalopathy Multifactorial. she is definitely better than last week but is not at her baseline and has really been unchanged the last 72 hours the current difficulty is she is not eating and drinking very well and she is not maintaining her hydration a lot of this has to do with her inability to lift a cup to drink consulted speech therapy since she has been on honey thick liquids and is not hydrating well, fluid texture back to thin liquids which I agree with because thickeners do not prevent aspiration/aspiration pneumonia or pneumonitis. May need to allow straws since she is having significant difficulty lifting cup to drink Frequent orientation - has her PRN haldol for agitation or disturbing hallucinations #Hypernatremiasodium = 154 on admission. resolved with D5W, recurred with trial of po x 48h. normalized today, ordered maintenance IV fluids with 1/2 normal saline. Will keep IVF for now as patient may be fluid deficient due to having hypernatremia. will do another trial of oral intake on 11/13 if repeatedly failing will need to have discussion about goals of care, is highly likely she would pull out a temporary feeding tube given her past behaviors #Parkinsonism-has DBS in place Continue carbidopa levodopa, primidone at home dosage. #Diabetes mellitus II-with hyperglycemia here due to D5W and acute illness continue Lantus decreased back to for bid now off D5, short acting insulin PRN. changed to regular diet for palatability, removed carb count insulin. no benefit of tight control given her overall health status #Hyperlipidemia Continue Crestor #Depression/dementia-advanced, can recognize family, can feed self but does not ambulate, uses wheelchair, is not oriented to place or time, frequently pulls at IVs, Santana, and yells out for "help" even if nothing is needed Continue Seroquel 25 mg p.o. every morning, 50 mg p.o. every afternoon Continue Haldol prn-rare use at shelter when is agitated, throwing things. Continue benztropine as needed Continue Lexapro #Seizure disorder Continue Lamictal #GERD Continue Protonix Continue Pepcid DVT proph- enoxaparin Dispo- continued inpatient stay until taking adequate po, discharge planned back to [facility] Updated her daughter in room 07/12 Admission and Anticipated Discharge Date Admission Date: July 04, 2024 Subjective Patient is more awake and eating. Needs assistance by daughter and is a poor historian Physical Exam Physical Exam: General: lying in bed awake crying out help HEENT: moist mucous membranes Lungs: Normal respiratory effort. Clear to auscultation bilaterally. No RRW Heart: Regular rate and rhythm, no murmurs. No JVD Abdomen: Soft, nontender, nondistended. Bowel sounds present. Extremities: Warm, dry, well-perfused. No extremity edema. : santana clear yellow urine Neuro: not oriented to place or situation, able to converse Results & Data Results & Data Vital Signs (Past 12 Hours) Vital Signs Temp Pulse Resp BP Pulse Ox O2 Del Method 07/12/24 15:30 36.7 C 62 16 124/69 97 Room Air PG Care Time/CCT Total # of Minutes Spent Total Time Spent with Patient: Total time spent is greater than 50% in coordination of care (as documented) at patient's floor/unit and/or counseling patient: Coding Level of Care Code 79937 SUB INP/OBS CARE 3/50MIN Diagnoses E coli bacteremia R78.81; B96.20 Urinary tract infection N39.0; R31.9 Hematuria presence: with hematuria Urinary tract infection type: site unspecified Hypernatremia E87.0 Acute alteration in mental status R41.82 (2) Urinary tract infection Hematuria presence: with hematuria Urinary tract infection type: site unspecified Qualified Code(s): N39.0 - Urinary tract infection, site not specified; R31.9 - Hematuria, unspecified
[2024-07-13 07:02] LABS: Hematocrit (blood only) 28.7 % (37.0-47.0); Hemoglobin 9.2 g/dl (12.0-16.0); Mean Corpuscular Hemoglobin 27.6 pg (25.0-34.0); Mean Corpuscular Hgb Conc 32.1 g/dL (32.0-36.0); Mean Corpuscular Volume 86.2 fL (80.0-100.0); Mean Platelet Volume 10.7 fL (9.4-12.4); Platelet Count 154 K/uL (130-400); RDW Coefficient of Variation 12.7 % (11.5-14.5); RDW Standard Deviation 37.8 fL (36.4-46.3); Red Blood Count 3.33 M/uL (4.20-5.40); White Blood Count 4.26 K/ul (4.8-10.8)
[2024-07-13 07:29] LABS: BUN Creatinine Ratio 13.4 (10-20); Calcium 8.8 mg/dl (8.6-10.3); Creatinine Clr Calc Pharmacy 57.5 ml/min; Potassium 3.8 mmol/L (3.5-5.1)
--- NOTE | 2024-07-13 13:26 | Hospitalist Progress Note ---
Date of Service July 13, 2024 Assessment & Plan (1) E coli bacteremia: (2) Urinary tract infection: (3) Hypernatremia: (4) Acute alteration in mental status: Plan 78-year-old female with advanced dementia, Parkinson's, recurrent UTI, HTN, COPD, GERD, DMII, seizure disorder, depression, presenting from [place] [facility] with fever, decreased responsiveness, decreased oral intake, found to have UTI, bacteremia, and severe hypernatremia. overall plan dc barrier still has limited oral intake and confusion. significant weakness and Parkinson symptoms. unable to lift up her cups she's need [employer] and family with oral feeding for her UTI, she's completing her IV ertapenem tonight #ESBL E. coli UTI and bacteremia CT found mod-severe bilat hydronephrosis from urine retention, no stones. Follows with Urology and recently had cystoscopy which showed severe cystitis and discussed possibly needing to move towards straight cath 3x/day as she has retention issues. Santana placed on admission here. Of note, family reports pt has pulled Santana catheter out in the past and doesn't tolerate them well once she is more alert. Continue Ertapenem and recommend 10 day course of antibiotics for acute pyelonephritis and bacteremia. tonight will be the 10th dose. - Appreciate Urology consult-f/u after discharge, no procedure needed now - if pulling at Santana may need to remove and perform straight cath 3x/day - continue Flomax - BCxs E.coli in 1 bottle and in urine. finalized - stable, continue ertapenem urinary retention, increasef flomax from 0.4 to 0.8mg she's continue to try pulling out the santana may need straight cath 3-4 time per day #Acute metabolic encephalopathy Multifactorial. she is definitely better than last week but is not at her baseline and has really been unchanged the last 72 hours the current difficulty is she is not eating and drinking very well and she is not maintaining her hydration a lot of this has to do with her inability to lift a cup to drink improving consulted speech therapy since she has been on honey thick liquids and is not hydrating well, fluid texture back to thin liquids which I agree with because thickeners do not prevent aspiration/aspiration pneumonia or pneumonitis. May need to allow straws since she is having significant difficulty lifting cup to drink Frequent orientation - has her PRN haldol for agitation or disturbing hallucinations #Hypernatremia improved with IV fluid dehydration. this is related to inabiity to lift the cup and feed herself she's need 24 hours care at the [facility] [facility] will do another trial of oral intake on 11/13 if repeatedly failing will need to have discussion about goals of care, is highly likely she would pull out a temporary feeding tube given her past behaviors #Parkinsonism-has DBS in place Continue carbidopa levodopa, primidone at home dosage. #Diabetes mellitus II-with hyperglycemia here due to D5W and acute illness continue Lantus decreased back to for bid now off D5, short acting insulin PRN. changed to regular diet for palatability, removed carb count insulin. no benefit of tight control given her overall health status #Hyperlipidemia Continue Crestor #Depression/dementia-advanced, can recognize family, can feed self but does not ambulate, uses wheelchair, is not oriented to place or time, frequently pulls at IVs, Santana, and yells out for "help" even if nothing is needed Continue Seroquel 25 mg p.o. every morning, 50 mg p.o. every afternoon Continue Haldol prn-rare use at [place] [facility] when is agitated, throwing things. Continue benztropine as needed Continue Lexapro #Seizure disorder Continue Lamictal #GERD Continue Protonix Continue Pepcid DVT proph- enoxaparin Dispo- continued inpatient stay until taking adequate po, discharge planned back to [facility] Updated her daughter-in law in room 07/13 Admission and Anticipated Discharge Date Admission Date: July 04, 2024 Subjective her daughter in law at bedside she's finishing up her last dose of IV antibiotics tonight family attribute her anorexia to significant upper extremity weakness from parkinson she's need total care with feeding and oral intake at the memory care unit. she's also wheelchair bounded I will increased her flomax from .4mg to .8mg and check orthostatic Review of Systems Review of Systems: unable to obtain given AMS Physical Exam Physical Exam: VITALS: Reviewed. WEIGHT/BMI reviewed. GEN: inattentive; chronically ill appearing -Head: NC/AT; -Eyes: PERRL, EOMI. No discharge or redn ess; -Ears: External ears are normal. Normal TMs. -Nose: Normal nares. -Mouth and throat: MMM. Normal gums, muc matt, palate,. Good dentition. CV: RRR, no m/r/g. LUNGS: CTAB, no w/r/c. ABD: Soft, NT/ND, NBS, no masses or organomegaly. : + for santana catheter MSK: No deformities, Normal gait. EXT: No clubbing, cyanosis, or edema. NEURO: slow mentation; inattentive. Results & Data Results & Data Vital Signs (Past 12 Hours) Vital Signs Temp Pulse Resp BP Pulse Ox O2 Del Method 07/13/24 07:58 36.2 C L 57 L 20 166/77 H 98 Room Air 07/13/24 07:30 Room Air Laboratory Results Laboratory Results - last 72 hr 07/10/24 07/10/24 07/10/24 17:14 19:59 20:22 WBC RBC Hgb Hct MCV MCH MCHC RDW Std Deviation RDW Coeff of Sunitha Plt Count MPV Sodium Potassium Chloride Carbon Dioxide Anion Gap BUN Creatinine Est Cr Clr Drug Dosing eGFR BUN/Creatinine Ratio Glucose POC Glucose 134 H 157 H 145 H Osmolality Calcium 07/11/24 07/11/24 07/11/24 06:47 08:20 12:15 WBC RBC Hgb Hct MCV MCH MCHC RDW Std Deviation RDW Coeff of Suntiha Plt Count MPV Sodium 142 Potassium 3.5 Chloride 109 H Carbon Dioxide 27 Anion Gap 6 BUN 15 Creatinine 0.77 Est Cr Clr Drug Dosing 50.1 eGFR 77.93 BUN/Creatinine Ratio 19.5 Glucose 120 H POC Glucose 124 H 133 H Osmolality Calcium 8.9 07/11/24 07/11/24 07/12/24 17:15 20:07 05:45 WBC 4.51 L RBC 3.33 L Hgb 9.3 L Hct 28.1 L MCV 84.4 MCH 27.9 MCHC 33.1 RDW Std Deviation 36.5 RDW Coeff of Sunitha 12.4 Plt Count 162 MPV 10.6 Sodium 141 Potassium 3.4 L Chloride 110 H Carbon Dioxide 25 Anion Gap 6 BUN 12 Creatinine 0.69 Est Cr Clr Drug Dosing 55.9 eGFR 87.68 BUN/Creatinine Ratio 17.4 Glucose 113 H POC Glucose 126 H 166 H Osmolality 291 Calcium 8.9 07/12/24 07/12/24 07/12/24 07:43 11:50 16:52 WBC RBC Hgb Hct MCV MCH MCHC RDW Std Deviation RDW Coeff of Sunitha Plt Count MPV Sodium Potassium Chloride Carbon Dioxide Anion Gap BUN Creatinine Est Cr Clr Drug Dosing eGFR BUN/Creatinine Ratio Glucose POC Glucose 121 H 135 H 120 H Osmolality Calcium 07/12/24 07/13/24 07/13/24 20:05 06:19 07:46 WBC 4.26 L RBC 3.33 L Hgb 9.2 L Hct 28.7 L MCV 86.2 MCH 27.6 MCHC 32.1 RDW Std Deviation 37.8 RDW Coeff of Sunitha 12.7 Plt Count 154 MPV 10.7 Sodium 143 Potassium 3.8 Chloride 112 H Carbon Dioxide 26 Anion Gap 5 BUN 9 Creatinine 0.67 Est Cr Clr Drug Dosing 57.5 eGFR 88.30 BUN/Creatinine Ratio 13.4 Glucose 114 H POC Glucose 148 H 126 H Osmolality Calcium 8.8 07/13/24 11:59 WBC RBC Hgb Hct MCV MCH MCHC RDW Std Deviation RDW Coeff of Sunitha Plt Count MPV Sodium Potassium Chloride Carbon Dioxide Anion Gap BUN Creatinine Est Cr Clr Drug Dosing eGFR BUN/Creatinine Ratio Glucose POC Glucose 143 H Osmolality Calcium Diagnostic Findings KUB X-Ray 07/12/24 18:29 INDICATION: Abdominal pain TECHNIQUE: Portable supine upright view radiograph of the abdomen was obtained. COMPARISON: Abdominal radiographs December 28, 2022. FINDINGS: There is mild colonic gas distention. Stool ball is noted over the rectal vault. Mild distention of the stomach is not specific. Evaluation for free air is limited due to supine technique. Surgical clips over the right upper quadrant of the abdomen, presumably from cholecystectomy. Calcifications over the expected region of the splenic arteries. IMPRESSION: Stool ball over the rectum and mild colonic gas distention could be due to clinically suspected constipation/fecal retention. Mild distention of the stomach is not specific. Electronically signed by Hill Calixto 07-12-2024 8:10 PM Medications Administered Home Medications cholecalciferol (vitamin D3) 50 mcg (2,000 unit) tablet (Vitamin D3) 2,000 unit PO QAM 09/08/18 [History Confirmed 07/04/24] cyanocobalamin (vitamin B-12) 1,000 mcg tablet (Vitamin B-12) 1,000 mcg PO QAM 09/08/18 [History Confirmed 07/04/24] acetaminophen 325 mg tablet 650 mg PO Q4H PRN pain 1-8 05/13/21 [History Confirmed 07/04/24] pen needle, diabetic 31 gauge x 3/16" (Sure-Fine Pen [place]) #100 ea 08/17/22 [Rx Confirmed 07/04/24] multivitamin (Daily-Devin tablet) 1 tab PO QAM 09/03/22 [History Confirmed 07/04/24] polyethylene glycol 3350 17 gram/dose oral powder (Miralax) 17 g PO DAILY PRN constipation #119 grams 01/29/23 [Rx Confirmed 07/04/24] lancets 30 gauge (Safety Seal Lancets) #100 ea 05/27/23 [Rx Confirmed 07/04/24] pen needle, diabetic, safety 30 gauge x 1/3" (Novofine Autocover) #100 ea 05/27/23 [Rx Confirmed 07/04/24] ascorbic acid (vitamin C) 500 mg capsule 500 mg PO BID 06/29/23 [History Confirmed 07/04/24] cranberry 500 mg capsule 500 mg PO QAM 06/29/23 [History Confirmed 07/04/24] diclofenac sodium 1 % topical gel 2 g topical QID PRN pain #100 grams 06/29/23 [Rx Confirmed 07/04/24] blood sugar diagnostic (PressableTouch Ultra Test strips) #100 ea 06/30/23 [Rx Confirmed 07/04/24] pantoprazole 40 mg tablet,delayed release 40 mg PO QAM #30 tabs 07/26/23 [Rx Confirmed 07/04/24] rosuvastatin 20 mg tablet 20 mg PO HS #30 tabs 07/26/23 [Rx Confirmed 07/04/24] escitalopram oxalate 20 mg tablet 20 mg PO QAM 07/30/23 [History Confirmed 07/04/24] famotidine 20 mg tablet 20 mg PO 2000 07/30/23 [History Confirmed 07/04/24] oxybutynin chloride 5 mg tablet 5 mg PO Q8H PRN bladder spasms #20 tabs 08/19/23 [Rx Confirmed 07/04/24] carbidopa 25 mg-levodopa 100 mg tablet 2 tab PO TID 30 days #180 tabs 08/20/23 [Rx Confirmed 07/04/24] dextromethorphan-guaifenesin 10 mg-100 mg/5 mL oral syrup (Tussin DM) 10 ml PO Q8 PRN Cough 08/24/23 [History Confirmed 07/04/24] diclofenac sodium 1 % topical gel 2 g topical QID Pain 08/24/23 [History Confirmed 07/04/24] fluticasone propionate 50 mcg/actuation nasal spray,suspension 1 spray intranasal DAILY 08/24/23 [History Confirmed 07/04/24] gabapentin 100 mg capsule 100 mg PO BID 05/16/24 [History Confirmed 07/04/24] haloperidol 1 mg tablet 1 mg PO Q6 PRN BPSD/AGITATION 05/16/24 [History Confirmed 07/04/24] lamotrigine 150 mg tablet (Lamictal) 75 mg PO AMHS 05/16/24 [History Confirmed 07/04/24] mirtazapine 15 mg tablet 15 mg PO HS 05/16/24 [History Confirmed 07/04/24] tramadol 50 mg tablet 50 mg PO Q6H PRN pain,severe 05/16/24 [History Confirmed 07/04/24] Abh Gel 1 applic topical Q6 PRN BPSD/AGITATION 07/04/24 [History Confirmed 07/04/24] acetaminophen 325 mg tablet 650 mg PO Q6 PRN temp > 100 07/04/24 [History Confirmed 07/04/24] acetaminophen 650 mg rectal suppository 650 mg DC Q6H PRN general discomfort 07/04/24 [History Confirmed 07/04/24] benztropine 1 mg/mL injection solution 1 mg IM BID PRN EPS 07/04/24 [History Confirmed 07/04/24] ceftriaxone 1 gram solution for injection 1 g IM HS 07/04/24 [History Confirmed 07/04/24] insulin aspart U-100 100 unit/mL subcutaneous solution 10 unit subcut DAILY 07/04/24 [History Confirmed 07/04/24] insulin glargine 100 unit/mL (3 mL) subcutaneous pen (Lantus Solostar U-100 Insulin) 14 unit subcut HS 07/04/24 [History Confirmed 07/04/24] lidocaine HCl 10 mg/mL (1 %) injection solution 2.1 ml IM HS 07/04/24 [History Confirmed 07/04/24] loperamide 2 mg tablet (Imodium A-D) 2 mg PO .Q 2 HOURS PRN Diarrhea 07/04/24 [History Confirmed 07/04/24] methenamine hippurate 1 gram tablet 1 g PO AMHS 07/04/24 [History Confirmed 07/04/24] olopatadine 0.1 % eye drops 1 drp OPB DAILY 07/04/24 [History Confirmed 07/04/24] olopatadine 0.1 % eye drops 1 drp OPB HS PRN allergies 07/04/24 [History Confirmed 07/04/24] ondansetron HCl 8 mg tablet 4 mg PO Q8H PRN n/v 07/04/24 [History Confirmed 07/04/24] primidone 50 mg tablet 100 mg PO AMHS 07/04/24 [History Confirmed 07/04/24] quetiapine 25 mg tablet 25 mg PO QAM 07/04/24 [History Confirmed 07/04/24] quetiapine 25 mg tablet 50 mg PO QPM 07/04/24 [History Confirmed 07/04/24] tamsulosin 0.4 mg capsule 0.4 mg PO DAILY 07/04/24 [History Confirmed 07/04/24] Active Medications Acetaminophen (Acetaminophen 500 Mg Tab) 1,000 mg PO Q8H PRN PRN Reason: Pain or Fever Stop: 08/07/24 18:49 Last Admin: 07/13/24 07:11 Dose: 1,000 mg Benztropine Mesylate (Benztropine Mesylate 1 Mg/Ml 2 Ml Amp) 1 mg IM BID PRN PRN Reason: EPS Stop: 08/04/24 02:25 Carbidopa/Levodopa (Carbidopa/Levodopa 25/100mg Tab) 2 tab PO TID [facility] Stop: 08/04/24 08:59 Last Admin: 07/13/24 13:00 Dose: 2 tab Dextrose (Dextrose 50% 50 Ml Syringe) 25 - 50 ml IV UD PRN; Protocol PRN Reason: Hypoglycemia Protocol Stop: 08/04/24 02:25 Enoxaparin Sodium (Enoxaparin Inj 40 Mg/0.4 Ml Syr) 40 mg SQ QAM [facility] Stop: 08/05/24 08:59 Last Admin: 07/13/24 07:13 Dose: 40 mg Escitalopram Oxalate (Escitalopram Oxalate 20 Mg Tab) 20 mg PO QAM [facility] Stop: 08/04/24 08:59 Last Admin: 07/13/24 07:12 Dose: 20 mg Famotidine (Famotidine 20 Mg Tab) 20 mg PO HS [facility] Stop: 08/04/24 20:59 Last Admin: 07/12/24 20:24 Dose: 20 mg Gabapentin (Gabapentin 100 Mg Cap) 100 mg PO BID [facility] Stop: 08/04/24 08:59 Last Admin: 07/05/24 20:22 Dose: 100 mg Glucagon (Glucagon For Inj 1 Mg Vial) 1 mg SQ UD PRN; Protocol PRN Reason: Hypoglycemia Protocol Stop: 08/04/24 02:25 Glucose (Glucose 40% Gel 15 Gm Tube) 15 - 30 gm PO UD PRN; Protocol PRN Reason: Hypoglycemia Protocol Stop: 08/04/24 02:25 Glucose (Glucose 10 Tab/Tube) 4 - 8 tab PO UD PRN; Protocol PRN Reason: Hypoglycemia Protocol Stop: 08/04/24 02:25 Haloperidol (Haloperidol 1 Mg Tab) 1 mg PO Q6H PRN PRN Reason: BPSD/AGITATION Stop: 08/04/24 02:25 Last Admin: 07/12/24 19:06 Dose: 1 mg Ertapenem (Invanz 1000mg) 1,000 mg in 10 mls @ 2 mls/min IV Q24H [facility] Stop: 07/13/24 23:59 Last Admin: 07/12/24 19:07 Dose: 2 mls/min Insulin Aspart (Insulin Aspart Per Unit Charge) 0 units SC ACHS [facility] Stop: 08/04/24 20:59 Last Admin: 07/13/24 12:16 Dose: Not Given Insulin Glargine (Lantus Per Unit Charge) 4 units SQ BID [facility] Stop: 08/09/24 20:59 Last Admin: 07/13/24 08:25 Dose: 4 units Lamotrigine (Lamotrigine 25 Mg Tab) 75 mg PO BID [facility] Stop: 08/04/24 08:59 Last Admin: 07/13/24 07:12 Dose: 75 mg Miscellaneous (Carbohydrates For Hypoglycemia ) 15 - 30 gm PO UD PRN PRN Reason: Hypoglycemia Protocol Stop: 08/04/24 02:25 Ondansetron HCl (Ondansetron Inj 2 Mg/Ml 2 Ml Vial) 4 mg IV Q6H PRN PRN Reason: Nausea And Vomiting Stop: 08/04/24 02:25 Pantoprazole Sodium (Pantoprazole 40 Mg Tab) 40 mg PO QPM [facility]; Protocol Stop: 08/06/24 20:59 Last Admin: 07/12/24 20:26 Dose: 40 mg Polyethylene Glycol (Polyethylene (Miralax) 17 Gm Pack) 17 gm PO TID [facility] Stop: 08/11/24 13:59 Last Admin: 07/13/24 12:59 Dose: Not Given Primidone (Primidone 50 Mg Tab) 100 mg PO AMHS [facility] Stop: 08/04/24 08:59 Last Admin: 07/13/24 07:12 Dose: 100 mg Quetiapine Fumarate (Quetiapine Fumarate 25 Mg Tablet) 50 mg PO QPM [facility] Stop: 08/04/24 20:59 Last Admin: 07/12/24 20:26 Dose: 50 mg Quetiapine Fumarate (Quetiapine Fumarate 25 Mg Tablet) 25 mg PO QAM [facility] Stop: 08/04/24 08:59 Last Admin: 07/13/24 07:13 Dose: 25 mg Rosuvastatin Calcium (Rosuvastatin Calcium 20 Mg Tab) 20 mg PO HS [facility] Stop: 08/04/24 20:59 Last Admin: 07/12/24 20:25 Dose: 20 mg Tamsulosin HCl (Tamsulosin Hcl 0.4 Mg Cap) 0.4 mg PO DAILY [facility] Stop: 08/04/24 08:59 Last Admin: 07/13/24 07:13 Dose: 0.4 mg PG Care Time/CCT Total # of Minutes Spent Total Time Spent with Patient: Total time spent is greater than 50% in coordination of care (as documented) at patient's floor/unit and/or counseling patient: Coding Level of Care Code 29317 SUB INP/OBS CARE 2/35MIN Diagnoses E coli bacteremia R78.81; B96.20 Urinary tract infection N39.0; R31.9 Hematuria presence: with hematuria Urinary tract infection type: site unspecified Hypernatremia E87.0 Acute alteration in mental status R41.82 Time Spent (min) 35 (2) Urinary tract infection Hematuria presence: with hematuria Urinary tract infection type: site unspecified Qualified Code(s): N39.0 - Urinary tract infection, site not specified; R31.9 - Hematuria, unspecified
[2024-07-14 06:56] LABS: Hematocrit (blood only) 30.3 % (37.0-47.0); Mean Corpuscular Volume 84.9 fL (80.0-100.0); Mean Platelet Volume 10.5 fL (9.4-12.4); Platelet Count 171 K/uL (130-400); RDW Standard Deviation 37.3 fL (36.4-46.3); Red Blood Count 3.57 M/uL (4.20-5.40); White Blood Count 4.21 K/ul (4.8-10.8)
[2024-07-14 07:14] LABS: BUN Creatinine Ratio 14.3 (10-20); Calcium 9.2 mg/dl (8.6-10.3); Creatinine Clr Calc Pharmacy 55.1 ml/min; Potassium 3.8 mmol/L (3.5-5.1)
[2024-07-14 08:11] VITALS: RESP 20; TEMP 97.3; O2SAT 99
[2024-07-14 13:30] VITALS: BP 122/75; PULSE 60
--- NOTE | 2024-07-14 14:14 | Discharge Summary ---
Discharge Summary Date of Service July 14, 2024 Principal Dx & Hospital Course #1 = Principal Diagnosis (1) E coli bacteremia: she's completed the IV antibiotics (2) Urinary tract infection: repeat U/A in 4-5 days (3) Hypernatremia: she need assistance with oral hydration every 4 hours (4) Acute alteration in mental status: Plan 78-year-old female with advanced dementia, Parkinson's, recurrent UTI, HTN, COPD, GERD, DMII, seizure disorder, depression, presenting from her shelter with fever, decreased responsiveness, decreased oral intake, found to have UTI, bacteremia, and severe hypernatremia. overall plan she will need straight cath every 4-6 hours urinary retention, flomax increased from 0.4mg to 0.8mg in addition, weakness and dehydration please assist patient with oral hydration every 4 hours her advanced parkinson symptom prevent her from lifting a heavy cup #ESBL E. coli UTI and bacteremia CT found mod-severe bilat hydronephrosis from urine retention, no stones. recently had cystoscopy which showed severe cystitis and discussed possibly needing to move towards straight cath 3x/day as she has retention issues. Santana placed on admission here. Of note, family reports pt has pulled Santana catheter out in the past and doesn't tolerate them well once she is more alert. c/p ertapenem on 07/13 she's continue to pull out the santana as at risk for urethral injury straight cath every 4-6 hours - Appreciate Urology consult-f/u after discharge, no procedure needed now urinary retention, flomax from 0.4 to 0.8mg may need straight cath 3-4 time per day #Acute metabolic encephalopathy Multifactorial. she is definitely better than last week but is not at her baseline and has really been unchanged the last 72 hours the current difficulty is she is not eating and drinking very well and she is not maintaining her hydration a lot of this has to do with her inability to lift a cup to drink improving consulted speech therapy since she has been on honey thick liquids and is not hydrating well, fluid texture back to thin liquids which I agree with because thickeners do not prevent aspiration/aspiration pneumonia or pneumonitis. May need to allow straws since she is having significant difficulty lifting cup to drink Frequent orientation - has her PRN haldol for agitation or disturbing hallucinations #Hypernatremia improved with IV fluid her sodium level is stable at 143 (07/14/2024) dehydration. this is related to inabiity to lift the cup and feed herself she's need 24 hours care at the shelter goal of care family requested ongoing medication management they requested patient to return to ER for recurrent UTI return to ER if she's has dehydration in the future they does not want hospice care #Parkinsonism-has DBS in place Continue carbidopa levodopa, primidone at home dosage. #Diabetes mellitus II-with hyperglycemia here due to D5W and acute illness continue Lantus decreased back to for bid now off D5, short acting insulin PRN. changed to regular diet for palatability, removed carb count insulin. no benefit of tight control given her overall health status #[id number] Crestor #Depression/dementia-advanced, can recognize family, can feed self but does not ambulate, uses wheelchair, is not oriented to place or time, frequently pulls at IVs, Santana, and yells out for "help" even if nothing is needed Continue Seroquel 25 mg p.o. every morning, 50 mg p.o. every afternoon Continue Haldol prn-rare use at shelter when is agitated, throwing things. Continue benztropine as needed Continue Lexapro #Seizure disorder Continue Lamictal #GERD Continue Protonix Continue Pepcid DVT proph- enoxaparin Dispo- continued inpatient stay until taking adequate po, discharge planned back to [facility] Updated her daughter-in law in room 07/13 Admission HPI Per Admitting Provider Nadia Johnson is an 78yo female with history of DM, GERD, HTN and COPD presenting from [facility] with fever to 100.7 prior to arrival, decreased oral intake and somnolence. Patient was seen by Urology on 06/26/2024 for continued workup of LUTS, significant recurrent cystitis and infections. She had a cystoscopy performed which showed significant change in the bladder - multiple areas of diverticulum significant trabeculation and thickened bladder. Concern for developing chronic retention and incomplete emptying. In the ER she is afebrile, hypertensive otherwise HD stable Found to have positive UA, hypernatremia ER Course: Meropenem Discharge Exam General: non toxic appearing neuro: non-verbal; not oriented to place nor month heart :Normal s1; s2; RRR lung: CTA b/l; no wheezing; on room air abdomen: soft to touch : + for santana catheter psych; calm; cooperative MSK; no edema; Discharge Plan Discharge Items Patient Disposition: Transfer [facility] Reason For Visit: SOMNOLENCE, HYPERNATREMIA, UTI Discharge Diagnosis: UTI, hypernatremia, anoexia urinary retention. Condition on Discharge: Fair Activity: Resume your previous activity Exercise/Sports: Rest today Non-emergency contact: Primary Care Provider Call non-emergency contact if: your pain is worsening and you have a fever Follow-up/Referrals: Gennaro Costa III, MD [Primary Care Provider] - Diet: Carb Consistent or DM2 Diet Texture: Pureed (blended smooth) Addtl Attending Provider Instructions: she's will need oral hydration every 4-6 hours recheck sodium level in 3 days she's cannot tolerated indwelling santana straight cath every 6 hours. from 9pm till 6am, can avoid straigth cath flonax dose increased from 0.4mg to 0.8mg Pending Studies at Discharge: Yes Studies:: repeat u/a, repeat sodium level Stand-Alone Forms: My [facility] Skilled Items Patient informed of condition?: Yes DNR: Yes Discharge Level of Care: Skilled Communicable Disease: No Discharge Prognosis: Other Lines: None Urinary Catheter: No Medications and DC Order Prescriptions: New tamsulosin 0.4 mg Capsule 0.8 mg PO DAILY 30 Days Qty: 60 0RF Continued (DME) pen needle, diabetic [Sure-Fine Pen [place]] 31 gauge x 3/16" needle See Rx Instructions .Route Qty: 100 3RF Rx Instructions: As directed inject once daily Dx E11.9 Saftey tips (DME) Novofine Autocover 30 gauge x 1/3" needle See Rx Instructions .Route Qty: 100 4RF Rx Instructions: DAILY E11.9 (DME) lancets [Safety Seal Lancets] 30 gauge misc See Rx Instructions .Route Qty: 100 4RF Rx Instructions: TID R73.9 (DME) OneTouch Ultra Test Strip See Rx Instructions .Route Qty: 100 3RF Rx Instructions: As directed rosuvastatin 20 mg tablet 20 mg PO HS Qty: 30 11RF pantoprazole 40 mg tablet,delayed release (DR/EC) 40 mg PO QAM Qty: 30 11RF oxybutynin chloride 5 mg tablet 5 mg PO Q8H PRN (Reason: bladder spasms) Qty: 20 3RF carbidopa-levodopa 25-100 mg tablet 2 tab PO TID 30 Days Qty: 180 6RF acetaminophen 325 mg tablet 650 mg PO Q4H MDD 3G PRN (Reason: pain 1-8) Hold Instructions: Resume on 01/11/23. resume after finishing fluconazole cranberry 500 mg capsule 500 mg PO QAM ascorbic acid (vitamin C) 500 mg capsule 500 mg PO BID diclofenac sodium 1 % gel 2 g topical QID PRN (Reason: pain) Qty: 100 4RF Rx Instructions: can apply to affected hip, knee and L shoulder polyethylene glycol 3350 [Miralax] 17 gram/dose powder 17 g PO DAILY PRN (Reason: constipation) Qty: 119 0RF gabapentin 100 mg capsule 100 mg PO BID haloperidol 1 mg tablet 1 mg PO Q6 PRN (Reason: BPSD/AGITATION) lamotrigine [Lamictal] 150 mg tablet 75 mg PO AMHS mirtazapine 15 mg tablet 15 mg PO HS tramadol 50 mg tablet 50 mg PO Q6H PRN (Reason: pain,severe) cyanocobalamin (vitamin B-12) [Vitamin B-12] 1,000 mcg tablet 1,000 mcg PO QAM cholecalciferol (vitamin D3) [Vitamin D3] 2,000 unit tablet 2,000 unit PO QAM multivitamin [Daily-Devin] Tablet 1 tab PO QAM fluticasone propionate 50 mcg/actuation spray,suspension 1 spray intranasal DAILY diclofenac sodium 1 % gel 2 g TOPICAL QID Rx Instructions: apply to coccyx dextromethorphan-guaifenesin [Tussin DM] 10-100 mg/5 mL Syrup 10 ml PO Q8 PRN (Reason: Cough) famotidine 20 mg tablet 20 mg PO 1999 Rx Instructions: 20 mg orally pm at 8 pm; escitalopram oxalate 20 mg tablet 20 mg PO QAM acetaminophen 650 mg Suppository 650 mg WA Q6H PRN (Reason: general discomfort) Rx Instructions: start 07/04/24 take for 7 days if unable to take po benztropine 1 mg/mL Solution 1 mg IM BID PRN (Reason: EPS) insulin glargine [Lantus Solostar U-100 Insulin] 100 unit/mL (3 mL) insulin pen 14 unit subcut HS insulin aspart U-100 100 unit/mL solution 10 unit subcut DAILY methenamine hippurate 1 gram tablet 1 g PO AMHS ondansetron HCl 8 mg Tablet 4 mg PO Q8H PRN (Reason: n/v) olopatadine 0.1 % Drops 1 drp OPB DAILY Rx Instructions: separate doses by at least 6-8 hours olopatadine 0.1 % Drops 1 drp OPB HS PRN (Reason: allergies) Rx Instructions: separate doses by at least 6-8 hours primidone 50 mg tablet 100 mg PO AMHS quetiapine 25 mg tablet 50 mg PO QPM quetiapine 25 mg tablet 25 mg PO QAM acetaminophen 325 mg Tablet 650 mg PO Q6 PRN (Reason: temp > 100) loperamide [Imodium A-D] 2 mg Tablet 2 mg PO .Q 2 HOURS PRN (Reason: Diarrhea) lidocaine HCl 10 mg/mL (1 %) solution 2.1 ml IM HS Rx Instructions: INJECT WITH CEFTRIAXONE FOR 7 DAYS Abh Gel 1 applic topical Q6 PRN (Reason: BPSD/AGITATION) Rx Instructions: APPLY TO POSTERIOR NECK AND U BACK FOR 14 DAYS Discontinued ceftriaxone 1 gram recon soln 1 g IM HS Rx Instructions: ordered to start 07/04/24 for 7 days has not started this med yet tamsulosin 0.4 mg capsule 0.4 mg PO DAILY Discharge Orders: Discharge Order (Routine); Ordered 07/14/24 Ordered By: Hemanth Martinez/Other Patient Handouts: ED Urinary Retention, Female Admission Data Admit Date/Time: 07/04/24 23:38 Attending Provider: Hemanth Oconnor Admit Provider: Livia Rider Primary Care Provider: Gennaro Costa III Other Providers: Chaparro Benson; Livia Rider; [facility] Hospital Stay Data Consultations 07/04/24 22:15 ED Decision to Admit Stat 07/05/24 00:46 Consult Urology Routine Diagnostic Imagining Performed 07/04/24 20:26 CT abd pelvis wo con Stat CT head/brain wo con Stat Pending Results Patient Have Any Pending Studies at Discharge: Yes Discharge Instructions Given to Patient (Per Discharging Provider) she's will need oral hydration every 4-6 hours recheck sodium level in 3 days she's cannot tolerated indwelling santana straight cath every 6 hours. from 9pm till 6am, can avoid straigth cath flonax dose increased from 0.4mg to 0.8mg Total Time Total Time Spent Total Time Spent (In Minutes): 45 minutes Coding Level of Care Code 48579 INP/OBS DISCH >30 MIN Diagnoses E coli bacteremia R78.81; B96.20 Urinary tract infection N39.0; R31.9 Hematuria presence: with hematuria Urinary tract infection type: site unspecified Hypernatremia E87.0 Acute alteration in mental status R41.82 Time Spent (min) 35
== END 2024-07-14 14:26 | DRG 689 ==
LOC: ED 20:20 → EDINP 23:38 → SUATTDRO 23:38 → 2W 07-05 02:27

== ENCOUNTER 2024-10-12 14:31 | Inpatient (IN) ==
[2024-10-12] MEDS ORDERED: HYDROmorphone INJ 0.5 MG/0.5 ML SYR IV PRN ×2 (14:39→17:26)
--- NOTE | 2024-10-12 14:42 | Emergency Department Note ---
Impression & Plan Closed hip fracture, Fall, Anemia ED Provider Note NAME: WAN ZAVALA AGE: 79 SEX: F : 1945 ARRIVES VIA: Ambulance INFORMANT: Patient ED PROVIDER(S): Alan Ascencio DO CHIEF COMPLAINT: Fall HPI: Patient is an 79-year-old female who presents to the ER with a past medical history of ataxia, Parkinson's disease, diabetes, vertigo, dementia following a fall out of her wheelchair. She fell backwards and hit her head and onto her left hip. This occurred around 130. Since then she is complaining of severe pain in the left proximal femur/hip. History is otherwise fairly limited from the patient. EMS notes that they give her fentanyl with improvement of the pain. ADDITIONAL HISTORY OBTAINED: Per HPI Chronic Medical/Social Conditions Affecting Care: Per HPI PAST MEDICAL HISTORY:See Below PAST SURGICAL HISTORY:See Below FAMILY HISTORY:See Below SOCIAL HISTORY:See Below HOME MEDICATIONS:See Below ALLERGIES:See Below VITALS:See Below PHYSICAL EXAMINATION: GENERAL: Sitting up in bed, alert, moderate distress holding her left hip crying, HEAD: Normocephalic/atraumatic EYE EXAM: normal conjunctiva. PERRL and EOM's grossly intact. OROPHARYNX: no exudate, no erythema, lips, buccal mucosa, and tongue normal and mucous membranes are moist NECK: supple, no nuchal rigidity, no adenopathy, non-tender LUNGS: Clear to auscultation. Normal chest wall mechanics HEART: no murmurs, S1 normal and S2 normal ABDOMEN: abdomen soft, non-tender, normo-active bowel sounds, no masses, no rebound or guarding. BACK: Back is symmetrical on inspection and there is no deformity, no midline tenderness, no CVA tenderness. UPPER EXTREMITIES: upper extremities are grossly normal. LOWER EXTREMITIES: No pitting edema. NEURO EXAM: Awake alert oriented to person moving upper extremities but holding her left lower MEDICAL DECISION MAKING: Patient is an 79-year-old female who presents ER for the above-stated complaint. IV was established and blood work was obtained. Labs show no significant leukocytosis. Mild anemia 10.8. INR unremarkable. BMP although LFTs bilirubin was unremarkable. UA was contaminated. X-rays show a hip fracture. Patient was given IV morphine. CT head and cervical spine was negative. Patient was updated bedside. Discussed case with the hospitalist for further evaluation management treatment. Consults/Care Managements Discussions: Per MDM Triage Nursing notes reviewed. Limited review of prior medical records performed Vital Signs: reviewed and remarkable for no significant abnormalities Differential diagnosis: Differential diagnoses include major intracranial, cervical, spinal, thoracic, abdominal, pelvic and neurologic injury. Fracture, contusion, sprain, strain, laceration, abrasions included as well. ER treatment provided: See below Diagnostics interpreted by me include EKG and cardiac monitoring as listed below: -Cardiac Monitoring: An order was placed for continuous cardiac monitoring. The monitor shows a rate of 70 with sinus rhythm. -ECG: Unable to interpret due to spinal stimulator -Laboratory studies:Interpreted by me as stated above in MDM and shown below. Imaging studies: Xrays: As interpreted by me: X-ray of the femur shows left femoral neck fracture Chest x-ray shows no acute fracture CTs show: CT head and cervical spine was negative per radiology Procedures:none Critical Care: None Past Med/Surg History Problem List (Updated 10/12/24 @ 19:52 by Alan Ascencio, DO) Anemia (Acute) Fall (Acute) Closed hip fracture (Acute) Closed left hip fracture Verónica glabrata infection Retention of urine, unspecified (Acute) Hydronephrosis (Acute) Pneumonia (Acute) Ground glass opacity present on imaging of lung Thyroid nodule Incontinence Seizure-like activity 02/[address] 02/2023- thyroid nodule- recommend thyroid u/s; pulmonary nodules- recommend six month CT follow up (PCP aware per records) Murmur Hypomagnesemia (Acute) Verónica cystitis Iliotibial band syndrome, right leg Trochanteric bursitis, right hip Abdominal pain Right hip pain Ovarian cyst, right Left shoulder pain Orthostatic hypotension Recurrent infections (Chronic) Ataxia Osteopenia Parkinsonism Pelvic pain DM type 2 (diabetes mellitus, type 2) Varicose veins of legs Vertigo (Acute) Memory loss (Chronic) Essential tremor (07/28/13) HTN, goal below 140/90 (Chronic 03/30/17) Vitamin D deficiency (Acute) Trigeminal neuralgia (Acute) Mixed hyperlipidemia (Chronic) Insomnia (Acute) Dysphagia (Acute) No dysphagia symptoms per 06/29/23 PCP records Anxiety (Chronic) Allergic rhinitis (Acute) Depression COPD (chronic obstructive pulmonary disease) (Chronic) IBS (irritable bowel syndrome) (Chronic) Tubular adenoma of colon Medical History (Updated 10/12/24 @ 19:52 by Alan Ascencio DO) Bladder ulcer E coli bacteremia Hypernatremia Acute alteration in mental status Hydronephrosis Acute pyelonephritis Diabetes Anemia Urinary tract infection Hematuria Resides in assisted facility all med hx obtained from [facility] Medical Record History of vertigo Varicose veins of both lower extremities History of trigeminal neuralgia Seizure-like activity Episode of syncope/near syncope- admitted to [facility] 02/2023 (diagnosed with UTI and acute metabolic encephalopathy) EEG 02/2023 WNL Parkinsonism Osteopenia History of orthostatic hypotension Hyperlipemia Memory loss Cognitive changes felt related to age per neurology Iliotibial band syndrome affecting right lower leg Insomnia Incontinence IBS (irritable bowel syndrome) Hypertension Essential tremor s/p bilateral DBS placement 2013 R>L hand per neuro records Diabetes mellitus, type 2 Heart murmur No significant heart valve disease per 02/2023 ECHO Depression COPD (chronic obstructive pulmonary disease) ? per [place] record, pt not on any oxygen or inhalers Bladder ulcer Following with urology Ataxia Per daughter in law- patient can usually ambulate with walker- occ will need wheelchair Anxiety History of falling Coccygeal fracture hx of Nausea Constipation Recurrent urinary tract infection Follows with ID and urology Sensorineural hearing loss (SNHL) of both ears GERD (gastroesophageal reflux disease) resolved, off PPI Surgical History Status post tubal ligation S/P sinus surgery S/P cholecystectomy S/P deep brain stimulator placement (08/20/16) Family History Father Cancer Mother Depression Hypertension Stroke Grandmother Breast cancer Mother Myocardial infarction Other Family history unknown Denies family history of Ovarian cancer Prostate cancer Colorectal cancer Social History Smoking Status: Unknown if ever smoked Tobacco Type: Cigarettes Second Hand Exposure: No; Do You Dip or Chew Tobacco: No; Hx Alcohol Use: No Hx Substance Use: No Preferred Language: Frisian Communication Ability: Effective Slitter Service And Setter Required: No Beliefs That Will Affect Care: None marital status: / Current Living Situation: Snf Current Living Situation Comment: [place] [facility] current occupational status: retired How many Children do You have: 3 Feels Safe at Home: Yes Childhood Exposure to Second-Hand Smoke: Yes Diet: regular caffeine: Yes Dental Care, Regularly: No Physical Activity Frequency: Does not Exercise Seatbelt Use: always Sunscreen Use: No Assistive Devices: Denture - Upper, Denture - Lower, Walker and Wheelchair Allergies Allergies Allergy/AdvReac Type Severity Reaction Status Date / Time levetiracetam Allergy Intermediate Rash Verified 10/12/24 09:41 adhesive tape Allergy Mild Rash Verified 10/12/24 09:41 naproxen Allergy Mild RASH Verified 10/12/24 09:41 morphine Allergy Unknown Unknown Verified 10/12/24 09:41 sulfamethoxazole AdvReac Mild Nausea Verified 10/12/24 09:41 [From Bactrim] trimethoprim [From Bactrim] AdvReac Mild Nausea Verified 10/12/24 09:41 Home Meds Home Medications Medication Instructions Recorded Confirmed cholecalciferol (vitamin D3) 50 2,000 unit PO QAM 09/08/18 10/12/24 mcg (2,000 unit) tablet (Vitamin D3) cyanocobalamin (vitamin B-12) 1,000 mcg PO QAM 09/08/18 10/12/24 1,000 mcg tablet (Vitamin B-12) acetaminophen 325 mg tablet 650 mg PO Q4H PRN pain 1-8 05/13/21 10/12/24 multivitamin (Daily-Devin tablet) 1 tab PO QA 09/03/22 10/12/24 ascorbic acid (vitamin C) 500 mg 500 mg PO BID 06/29/23 10/12/24 capsule cranberry 500 mg capsule 500 mg PO QAM 06/29/23 10/12/24 escitalopram oxalate 20 mg tablet 20 mg PO QAM 07/30/23 10/12/24 famotidine 20 mg tablet 20 mg PO 2000 07/30/23 10/12/24 dextromethorphan-guaifenesin 10 10 ml PO Q8 PRN Cough 08/24/23 10/12/24 mg-100 mg/5 mL oral syrup (Tussin DM) diclofenac sodium 1 % topical gel 2 g topical QID Pain 08/24/23 10/12/24 fluticasone propionate 50 1 spray intranasal DAILY 08/24/23 10/12/24 mcg/actuation nasal spray,suspension gabapentin 100 mg capsule 100 mg PO BID 05/16/24 10/12/24 haloperidol 1 mg tablet 1 mg PO Q6 PRN BPSD/AGITATION 05/16/24 10/12/24 lamotrigine 150 mg tablet 75 mg PO AMHS 05/16/24 10/12/24 (Lamictal) mirtazapine 15 mg tablet 15 mg PO HS 05/16/24 10/12/24 tramadol 50 mg tablet 50 mg PO Q6H PRN pain,severe 05/16/24 10/12/24 Abh Gel 1 applic topical Q6 PRN 07/04/24 10/12/24 BPSD/AGITATION acetaminophen 325 mg tablet 650 mg PO Q6 PRN temp > 100 07/04/24 10/12/24 acetaminophen 650 mg rectal 650 mg WA Q6H PRN general 07/04/24 10/12/24 suppository discomfort benztropine 1 mg/mL injection 1 mg IM BID PRN EPS 07/04/24 10/12/24 solution insulin aspart U-100 100 unit/mL 10 unit subcut DAILY 07/04/24 10/12/24 subcutaneous solution insulin glargine 100 unit/mL (3 14 unit subcut HS 07/04/24 10/12/24 mL) subcutaneous pen (Lantus Solostar U-100 Insulin) loperamide 2 mg tablet (Imodium 2 mg PO .Q 2 HOURS PRN Diarrhea 07/04/24 10/12/24 A-D) olopatadine 0.1 % eye drops 1 drp OPB DAILY 07/04/24 10/12/24 olopatadine 0.1 % eye drops 1 drp OPB HS PRN allergies 07/04/24 10/12/24 ondansetron HCl 8 mg tablet 4 mg PO Q8H PRN n/v 07/04/24 10/12/24 primidone 50 mg tablet 100 mg PO AMHS 07/04/24 10/12/24 quetiapine 25 mg tablet 25 mg PO QAM 07/04/24 10/12/24 quetiapine 25 mg tablet 50 mg PO QPM 07/04/24 10/12/24 Previous Rx's Medication Instructions Recorded pen needle, diabetic 31 gauge x #100 ea 08/17/22 3/16" (Sure-Fine Pen [place]) polyethylene glycol 3350 17 17 g PO DAILY PRN constipation 01/29/23 gram/dose oral powder (Miralax) #119 grams lancets 30 gauge (Safety Seal #100 ea 05/27/23 Lancets) pen needle, diabetic, safety 30 #100 ea 05/27/23 gauge x 1/3" (Novofine Autocover) diclofenac sodium 1 % topical gel 2 g topical QID PRN pain #100 grams 06/29/23 blood sugar diagnostic (OneTouch #100 ea 06/30/23 Ultra Test strips) pantoprazole 40 mg tablet,delayed 40 mg PO QAM #30 tabs 07/26/23 release rosuvastatin 20 mg tablet 20 mg PO HS #30 tabs 07/26/23 carbidopa 25 mg-levodopa 100 mg 2 tab PO TID 30 days #180 tabs 08/20/23 tablet methenamine hippurate 1 gram tablet 1 g PO BID #180 tabs 08/10/24 tamsulosin 0.4 mg capsule 0.4 mg PO DAILY #90 caps 08/10/24 boric acid 600 mg vaginal 600 mg vaginal HS 3 weeks #30 ea 10/12/24 suppository (Azo Boric Acid) Results & Data (ED) Vital Signs Vital Signs - 24 hr 10/12/24 14:48 10/12/24 15:15 10/12/24 15:24 Temperature 36.8 C Temperature Source Oral Pulse Rate 79 74 75 Pulse Rate from SpO2 Sensor 74 74 Respiratory Rate 18 28 H 20 Blood Pressure 130/69 Blood Pressure Mean 89 Pulse Oximetry 94 94 94 Oxygen Delivery Method Room Air Sepsis Recent Fever Within 48 Hours No Sepsis New/Unexplained Change in Mental Status No Sepsis Action Taken by Nursing No Action Required 10/12/24 15:30 10/12/24 15:39 10/12/24 16:03 Temperature Temperature Source Pulse Rate 71 73 72 Pulse Rate from SpO2 Sensor 71 71 Respiratory Rate 22 21 Blood Pressure Blood Pressure Mean Pulse Oximetry 93 94 Oxygen Delivery Method Sepsis Recent Fever Within 48 Hours Sepsis New/Unexplained Change in Mental Status Sepsis Action Taken by Nursing 10/12/24 16:09 10/12/24 16:12 10/12/24 16:21 Temperature Temperature Source Pulse Rate 73 72 Pulse Rate from SpO2 Sensor 73 72 Respiratory Rate 20 15 Blood Pressure 187/78 H Blood Pressure Mean 104 Pulse Oximetry 91 99 Oxygen Delivery Method Sepsis Recent Fever Within 48 Hours Sepsis New/Unexplained Change in Mental Status Sepsis Action Taken by Nursing 10/12/24 16:30 10/12/24 16:30 10/12/24 16:45 Temperature Temperature Source Pulse Rate 73 74 Pulse Rate from SpO2 Sensor 73 74 Respiratory Rate 14 14 Blood Pressure 193/90 H Blood Pressure Mean 137 Pulse Oximetry 97 99 Oxygen Delivery Method Sepsis Recent Fever Within 48 Hours Sepsis New/Unexplained Change in Mental Status Sepsis Action Taken by Nursing 10/12/24 16:51 10/12/24 17:00 10/12/24 17:00 Temperature Temperature Source Pulse Rate 75 Pulse Rate from SpO2 Sensor 75 Respiratory Rate 15 Blood Pressure 196/93 H 196/93 H Blood Pressure Mean 140 140 Pulse Oximetry 99 Oxygen Delivery Method Sepsis Recent Fever Within 48 Hours Sepsis New/Unexplained Change in Mental Status Sepsis Action Taken by Nursing 10/12/24 17:00 10/12/24 17:00 10/12/24 17:21 Temperature Temperature Source Pulse Rate 76 Pulse Rate from SpO2 Sensor 76 Respiratory Rate 25 H Blood Pressure 196/93 H 196/93 H Blood Pressure Mean 140 140 Pulse Oximetry 98 Oxygen Delivery Method Sepsis Recent Fever Within 48 Hours Sepsis New/Unexplained Change in Mental Status Sepsis Action Taken by Nursing 10/12/24 17:30 10/12/24 17:30 Temperature Temperature Source Pulse Rate 77 Pulse Rate from SpO2 Sensor 76 Respiratory Rate 21 Blood Pressure 193/91 H Blood Pressure Mean 126 Pulse Oximetry 96 Oxygen Delivery Method Sepsis Recent Fever Within 48 Hours Sepsis New/Unexplained Change in Mental Status Sepsis Action Taken by Nursing Laboratory Data 10/12/24 14:54 10/12/24 14:54 Lab Results 10/12/24 10/12/24 Range/Units 14:54 17:09 WBC 6.58 (4.8-10.8) K/ul RBC 3.91 L (4.20-5.40) M/uL Hgb 10.8 L (12.0-16.0) g/dl Hct 34.2 L (37.0-47.0) % MCV 87.5 (80.0-100.0) fL MCH 27.6 (25.0-34.0) pg MCHC 31.6 L (32.0-36.0) g/dL RDW Std Deviation 44.0 (36.4-46.3) fL RDW Coeff of Sunitha 13.8 (11.5-14.5) % Plt Count 160 (130-400) K/uL MPV 10.3 (9.4-12.4) fL Immature Gran % (Auto) 0.3 % Neut % (Auto) 74.5 % Lymph % (Auto) 16.3 % [place] % (Auto) 6.8 % Eos % (Auto) 1.8 % Baso % (Auto) 0.3 % Neut # (Auto) 4.90 (1.40-6.50) K/uL Lymph # (Auto) 1.07 L (1.20-3.40) K/uL [place] # (Auto) 0.45 (0.11-0.59) K/uL Eos # (Auto) 0.12 (0.00-0.50) K/uL Baso # (Auto) 0.02 (0.00-0.20) K/uL Immature Gran # (Auto) 0.02 (0.01-0.20) K/uL PT 10.5 (9.0-12.0) Seconds INR 1.0 (0.9-1.1) APTT 26 (21-31) Seconds PTT Ratio 1.0 Sodium 143 (136-145) mmol/L Potassium 3.9 (3.5-5.1) mmol/L Chloride 107 (98-107) mmol/L Carbon Dioxide 31 (21-32) mmol/L Anion Gap 5 (3-11) BUN 14 (6-23) mg/dl Creatinine 0.93 (0.6-1.2) mg/dl Est Cr Clr Drug Dosing Not Reportable eGFR 61.75 BUN/Creatinine Ratio 15.1 (10-20) Glucose 133 H (70-99(Fasting)) mg/dl Calcium 9.3 (8.6-10.3) mg/dl Total Bilirubin 0.3 (0.2-1.0) mg/dl AST 8 L (13-39) U/L ALT 4 L (7-52) U/L Alkaline Phosphatase 79 (34-104) U/L Total Protein 7.0 (6.0-8.3) gm/dl Albumin 4.0 (3.4-5.0) gm/dl Globulin 3.0 (2.5-4.0) gm/dl Albumin/Globulin Ratio 1.3 (0.9-2) Urine Color Yellow Urine Appearance Turbid A (Clear) Urine pH 6.5 (4.5-7.5) Ur Specific [place] 1.014 (1.000-1.030) Urine Protein 1+ H (Negative) Urine Glucose (UA) Negative (Negative) Urine Ketones Negative (Negative) Urine Blood 2+ H (Negative) Urine Nitrite Negative (Negative) Urine Bilirubin Negative (Negative) Urine Urobilinogen Negative (Negative) Ur Leukocyte Esterase 3+ H (Negative) Urine WBC (Auto) >50 H (0-5) /hpf Urine RBC (Auto) >20 H (0-2) /hpf U Hyaline Cast (Auto) 3-5 H (0-2) /lpf U Epithel Cells (Auto) 6-10 H (0-2) /hpf Urine Bacteria (Auto) 4+ H (None Seen) Urine Comment Administered Medications Lactated Ringer's (Lr) 1,000 mls @ 80 mls/hr IV .[id number] ABIGAIL Stop: 10/15/24 17:29 Last Admin: 10/12/24 18:04 Dose: 80 mls/hr Documented By: [facility] [place]continued Medications Hydromorphone HCl (Hydromorphone Inj 0.5 Mg/0.5 Ml Syr) 0.5 mg IV Q20M PRN PRN Reason: Severe Pain (Rating 7,8,9,10) Stop: 10/26/24 14:38 Last Admin: 10/12/24 16:07 Dose: 0.5 mg Documented By: Admin: 10/12/24 15:13 Dose: 0.5 mg Documented By: MONSE Acetaminophen (Ofirmev) 1,000 mg in 100 mls @ 400 mls/hr IV NOW STA Stop: 10/12/24 17:40 Last Infusion: 10/12/24 18:04 Dose: Infused Documented By: [facility] [place] Admin: 10/12/24 17:44 Dose: 400 mls/hr Documented By: MONSE Imaging Data Radiologist's Impression: Cervical Spine CT 10/12/24 14:39 CT SCAN OF THE CERVICAL SPINE CLINICAL HISTORY: Fall. COMPARISON STUDY: None. TECHNIQUE: CT scan of the cervical spine is performed from the skull base to the upper thoracic spine. Images are reviewed in the axial, sagittal, and coronal planes. IV contrast was not administered for this examination. A dose lowering technique was utilized adhering to the principles of ALARA. CT DOSE: 1135.82 mGy.cm FINDINGS: Skeletal structures: There is no evidence of fracture or subluxation involving the cervical spine. Vertebral body height and alignment are maintained. The odontoid process and lateral masses are intact. The atlantoaxial articulation is preserved. The spinous processes appear intact. There is moderate multilevel disc space narrowing within the cervical spine. There is mild endplate osteophytosis and facet arthrosis within the cervical spine. Soft tissues: The prevertebral and paraspinous soft tissues are within normal limits. A right lobe thyroid nodule is better depicted on ultrasound of December 09, 2023. Calvarium: The visualized calvarium at the skull base appears intact. Brain parenchyma: Partially visualized brain parenchyma at the skull base is within normal limits. Lung apices: Clear as visualized. IMPRESSION: No acute cervical spine fracture or subluxation. ACT 112: Negative or not required by law. Electronically signed by: Cornelius Collins M.D. 10/12/2024 4:11 PM Chest X-Ray 10/12/24 14:39 XR chest 1V portable CLINICAL HISTORY: fall COMPARISON STUDY: 07/04/2024 FINDINGS: Stable neurostimulator batteries. There is mild cardiomegaly without pulmonary vascular congestion. No consolidation or pleural effusion. No pneumothorax. Stable old fracture proximal left humerus. IMPRESSION: No acute findings. ACT 112: Negative or not required by law. Electronically signed by: Tomas Casas M.D. 10/12/2024 3:14 PM Femur X-Ray 10/12/24 14:39 XR femur LT 2V routine, XR hip LT min 2V CLINICAL HISTORY: l hip COMPARISON: None FINDINGS: There is an acute mildly displaced fracture at the left femoral neck. No other fracture or dislocation seen at the left hip or femur. IMPRESSION: Acute fracture left femoral neck. ACT 112: Negative or not required by law. Electronically signed by: Tomas Casas M.D. 10/12/2024 3:[address] 10/12/24 14:39 CT SCAN OF THE BRAIN WITHOUT IV CONTRAST CLINICAL HISTORY: Fall. COMPARISON STUDY: Head CT July 04, 2024. TECHNIQUE: Unenhanced axial CT scan of the brain was performed from the vertex to the skull base. A dose lowering technique was utilized adhering to the principles of ALARA. FINDINGS: Bilateral deep brain stimulator leads are unchanged in position and terminate within the bilateral thalami. Artifact from the leads mildly compromises evaluation of the adjacent brain parenchyma. No acute intracranial hemorrhage, midline shift or mass effect is present. Ventricular system is stable. Basal cisterns are patent. There are no extra axial collections. There are no calvarial fractures. IMPRESSION: 1. No acute intracranial findings. No change in appearance of the brain. 2. No calvarial fractures. ACT 112: Negative or not required by law. Electronically signed by: Cornelius Collins M.D. 10/12/2024 4:08 PM Hip X-Ray 10/12/24 14:39 XR femur LT 2V routine, XR hip LT min 2V CLINICAL HISTORY: l hip COMPARISON: None FINDINGS: There is an acute mildly displaced fracture at the left femoral neck. No other fracture or dislocation seen at the left hip or femur. IMPRESSION: Acute fracture left femoral neck. ACT 112: Negative or not required by law. Electronically signed by: Tomas Casas M.D. 10/12/2024 3:14 PM Discharge Plan Visit Data Chief Complaint: Fall ED Provider: Alan Ascencio Discharge Problem: Closed hip fracture, Fall, Anemia Patient Disposition: Admitted As Inpatient Condition: Fair Discharge Instructions Interventions: ED Discharge Assessment Last Done: 10/12/24 18:31 Discharge Problem: Closed hip fracture Qualifiers: Encounter type: initial encounter Laterality: left Qualified Code(s): S72.002A - Fracture of unspecified part of neck of left femur, initial encounter for closed fracture Fall Qualifiers: Encounter type: initial encounter Qualified Code(s): W19.XXXA - Unspecified fall, initial encounter Anemia Qualifiers: Anemia type: unspecified type Qualified Code(s): D64.9 - Anemia, unspecified
[2024-10-12 15:09] LABS: Hematocrit (blood only) 34.2 % (37.0-47.0); Hemoglobin 10.8 g/dl (12.0-16.0); Immature Granulocytes # (auto) 0.02 K/uL (0.01-0.20); Immature Granulocytes % (auto) 0.3 %; Mean Corpuscular Hemoglobin 27.6 pg (25.0-34.0); Mean Corpuscular Volume 87.5 fL (80.0-100.0); Platelet Count 160 K/uL (130-400); RDW Standard Deviation 44.0 fL (36.4-46.3); Red Blood Count 3.91 M/uL (4.20-5.40); White Blood Count 6.58 K/ul (4.8-10.8)
[2024-10-12] MEDS: HYDROmorphone INJ 0.5 MG/0.5 ML SYR IV PRN ×2 (15:13→21:30)
--- NOTE | 2024-10-12 15:15 | XRay Report ---
XR chest 1V portable CLINICAL HISTORY: fall COMPARISON STUDY: 07/04/2024 FINDINGS: Stable neurostimulator batteries. There is mild cardiomegaly without pulmonary vascular con gestion. No consolidation or pleural effusion. No pneumothorax. Stable old fracture proximal left hum erus. IMPRESSION: No acute findings. ACT 112: Negative or not required by law. Electronically signed by: Tomas Casas M.D. 10/12/2024 3:14 PM
--- NOTE | 2024-10-12 15:16 | XRay Report ---
XR femur LT 2V routine, XR hip LT min 2V CLINICAL HISTORY: l hip COMPARISON: None FINDINGS: There is an acute mildly displaced fracture at the left femoral neck. No other fracture or dislocation seen at the left hip or femur. IMPRESSION: Acute fracture left femoral neck. ACT 112: Negative or not required by law. Electronically signed by: Tomas Casas M.D. 10/12/2024 3:14 PM
[2024-10-12 15:26] LABS: Alanine Aminotransferase 4 U/L (7-52); Albumin Globulin Ratio 1.3 (0.9-2); Alkaline Phosphatase 79 U/L (34-104); Anion Gap 5 (3-11); Bilirubin,Total 0.3 mg/dl (0.2-1.0); Blood Urea Nitrogen 14 mg/dl (6-23); Calcium 9.3 mg/dl (8.6-10.3); Carbon Dioxide 31 mmol/L (21-32); Chloride 107 mmol/L (98-107); Globulin 3.0 gm/dl (2.5-4.0); Glucose 133 mg/dl (70-99(Fasting)); Potassium 3.9 mmol/L (3.5-5.1); Sodium 143 mmol/L (136-145); Total Protein 7.0 gm/dl (6.0-8.3)
[2024-10-12 15:45] LABS: INR 1.0 (0.9-1.1); Partial Thromboplastin Time 26 Seconds (21-31); Prothrombin Time 10.5 Seconds (9.0-12.0)
--- NOTE | 2024-10-12 16:10 | CT Scan Report ---
CT SCAN OF THE BRAIN WITHOUT IV CONTRAST CLINICAL HISTORY: Fall. COMPARISON STUDY: Head CT July 04, 2024. TECHNIQUE: Unenhanced axial CT scan of the brain was performed from the vertex to the skull base. A dose lowering technique was utilized adhering to the principles of ALARA. FINDINGS: Bilateral deep brain stimulator leads are unchanged in position and terminate within the bi lateral thalami. Artifact from the leads mildly compromises evaluation of the adjacent brain parenchy ma. No acute intracranial hemorrhage, midline shift or mass effect is present. Ventricular system is stable. Basal cisterns are patent. There are no extra axial collections. There are no calvarial fract ures. IMPRESSION: 1. No acute intracranial findings. No change in appearance of the brain. 2. No calvarial fractures. ACT 112: Negative or not required by law. Electronically signed by: Cornelius Clolins M.D. 10/12/2024 4:08 PM
--- NOTE | 2024-10-12 16:14 | CT Scan Report ---
CT SCAN OF THE CERVICAL SPINE CLINICAL HISTORY: Fall. COMPARISON STUDY: None. TECHNIQUE: CT scan of the cervical spine is performed from the skull base to the upper thoracic spine . Images are reviewed in the axial, sagittal, and coronal planes. IV contrast was not administered fo r this examination. A dose lowering technique was utilized adhering to the principles of ALARA. CT DOSE: 1135.82 mGy.cm FINDINGS: Skeletal structures: There is no evidence of fracture or subluxation involving the cervical spine. Ve rtebral body height and alignment are maintained. The odontoid process and lateral masses are intact . The atlantoaxial articulation is preserved. The spinous processes appear intact. There is moderate multilevel disc space narrowing within the cervical spine. There is mild endplate osteophytosis and f acet arthrosis within the cervical spine. Soft tissues: The prevertebral and paraspinous soft tissues are within normal limits. A right lobe th yroid nodule is better depicted on ultrasound of December 09, 2023. Calvarium: The visualized calvarium at the skull base appears intact. Brain parenchyma: Partially visualized brain parenchyma at the skull base is within normal limits. Lung apices: Clear as visualized. IMPRESSION: No acute cervical spine fracture or subluxation. ACT 112: Negative or not required by law. Electronically signed by: Cornelius Collins M.D. 10/12/2024 4:11 PM
--- NOTE | 2024-10-12 16:52 | History & Physical Report ---
Date of Service October 12, 2024 Assessment & Plan (1) Fall: (2) Closed left hip fracture: (3) Diabetes: (4) Seizure-like activity: Plan Nadia Johnson is an 78yo female with history of DM, GERD, HTN and COPD presenting from [facility] with a fall out of her wheel chair resulting in hip fracture. Admitted for orthopedic evaluation. #Fall | hip fracture - with fall out of wheelchair. CT head c-spine without acute findings. Femur xray: acute fracture left femoral neck Consult orthopedics NWB santana in place NPO at midnight - maintence LR Pain control: scheduled tylenol IV and prn dilaudid UA pending hypoxia after pain med - wean as able AM CBC and BMP and Vit D level #Hx of urinary retention - also with recurrent UTIs, follows with urology outpatient. After santana removal - Bladder scan q 6 hours and cath if > 300 in baldder Continue flomax and methenamine #Parkinsonism-has DBS in place ([employer] [id number] Model [id number]) Continue carbidopa levodopa, primidone at home dosage #Diabetes Home regimen: lantus 14 units HS + aspart Continue Lantus 10u HS + SSI CF 30 CR 10 AM A1c Continue Neurontin #Hyperlipidemia Continue Crestor #Mental health | Dementia Continue Seroquel 25 mg p.o. every morning, 50 mg p.o. every afternoon Continue Haldol prn Continue Lexapro continue remeron #Seizure disorder Continue Lamictal and primidone #GERD Continue Protonix Continue Pepcid Dispo: admit to med/surg DVT proh: SCDs family updated at bedside 10/12 History of Present Illness Chief Complaint: fall Primary Care Provider: Gennaro Costa III, Nadia Johnson is an 78yo female with history of DM, GERD, HTN, parkinsonism, urinary retention, seizure disorder, depression and dementia and COPD presenting from [facility] with a fall out of her wheel chair resulting in hip fracture. Fall was unwitnessed - she was in her room infront of her TV and staff things she was trying to return to bed, which she needs assistance for. Nadia is alert to self only, yells out "pain" and points to her leg and "help" repetitively. Daughter in law and son present at bedside. Report that nadia was her normal self this morning - went to urology visit with no issues. Confirm they would want surgery and everything possible done for Nadia. States she does not tolerate pain well. Allergies Allergy/AdvReac Type Severity Reaction Status Date / Time levetiracetam Allergy Intermediate Rash Verified 10/12/24 09:41 adhesive tape Allergy Mild Rash Verified 10/12/24 09:41 naproxen Allergy Mild RASH Verified 10/12/24 09:41 morphine Allergy Unknown Unknown Verified 10/12/24 09:41 sulfamethoxazole AdvReac Mild Nausea Verified 10/12/24 09:41 [From Bactrim] trimethoprim [From Bactrim] AdvReac Mild Nausea Verified 10/12/24 09:41 Home Medications Medication Instructions Recorded Confirmed Type cholecalciferol (vitamin D3) 50 2,000 unit PO QAM 09/08/18 10/12/24 History mcg (2,000 unit) tablet (Vitamin D3) cyanocobalamin (vitamin B-12) 1,000 mcg PO QAM 09/08/18 10/12/24 History 1,000 mcg tablet (Vitamin B-12) pen needle, diabetic 31 gauge x #100 ea 08/17/22 10/12/24 Rx 3/16" (Sure-Fine Pen [place]) multivitamin (Daily-Devin tablet) 1 tab PO QAM 09/03/22 10/12/24 History polyethylene glycol 3350 17 17 g PO DAILY PRN constipation 01/29/23 10/12/24 Rx gram/dose oral powder (Miralax) #119 grams lancets 30 gauge (Safety Seal #100 ea 05/27/23 10/12/24 Rx Lancets) pen needle, diabetic, safety 30 #100 ea 05/27/23 10/12/24 Rx gauge x 1/3" (Novofine Autocover) ascorbic acid (vitamin C) 500 mg 500 mg PO BID 06/29/23 10/12/24 History capsule cranberry 500 mg capsule 500 mg PO QAM 06/29/23 10/12/24 History diclofenac sodium 1 % topical gel 2 g topical QID PRN pain #100 grams 06/29/23 10/12/24 Rx blood sugar diagnostic (OneTouch #100 ea 06/30/23 10/12/24 Rx Ultra Test strips) pantoprazole 40 mg tablet,delayed 40 mg PO QAM #30 tabs 07/26/23 10/12/24 Rx release rosuvastatin 20 mg tablet 20 mg PO HS #30 tabs 07/26/23 10/12/24 Rx escitalopram oxalate 20 mg tablet 20 mg PO QAM 07/30/23 10/12/24 History famotidine 20 mg tablet 20 mg PO 2000 07/30/23 10/12/24 History carbidopa 25 mg-levodopa 100 mg 2 tab PO TID 30 days #180 tabs 08/20/23 10/12/24 Rx tablet dextromethorphan-guaifenesin 10 10 ml PO Q8 PRN Cough 08/24/23 10/12/24 History mg-100 mg/5 mL oral syrup (Florian DM) diclofenac sodium 1 % topical gel 2 g topical QID Pain 08/24/23 10/12/24 History fluticasone propionate 50 1 spray intranasal DAILY 08/24/23 10/12/24 History mcg/actuation nasal spray,suspension gabapentin 100 mg capsule 100 mg PO BID 05/16/24 10/12/24 History haloperidol 1 mg tablet 1 mg PO Q6 PRN BPSD/AGITATION 05/16/24 10/12/24 History lamotrigine 150 mg tablet 75 mg PO AMHS 05/16/24 10/12/24 History (Lamictal) mirtazapine 15 mg tablet 15 mg PO HS 05/16/24 10/12/24 History Abh Gel 1 applic topical Q6 PRN 07/04/24 10/12/24 History BPSD/AGITATION benztropine 1 mg/mL injection 1 mg IM BID PRN EPS 07/04/24 10/12/24 History solution insulin aspart U-100 100 unit/mL 10 unit subcut DAILY 07/04/24 10/12/24 History subcutaneous solution insulin glargine 100 unit/mL (3 14 unit subcut HS 07/04/24 10/12/24 History mL) subcutaneous pen (Lantus Solostar U-100 Insulin) loperamide 2 mg tablet (Imodium 2 mg PO .Q 2 HOURS PRN Diarrhea 07/04/24 10/12/24 History A-D) olopatadine 0.1 % eye drops 1 drp OPB DAILY 07/04/24 10/12/24 History olopatadine 0.1 % eye drops 1 drp OPB HS PRN allergies 07/04/24 10/12/24 History ondansetron HCl 8 mg tablet 4 mg PO Q8H PRN n/v 07/04/24 10/12/24 History primidone 50 mg tablet 100 mg PO AMHS 07/04/24 10/12/24 History quetiapine 25 mg tablet 25 mg PO QAM 07/04/24 10/12/24 History quetiapine 25 mg tablet 50 mg PO QPM 07/04/24 10/12/24 History methenamine hippurate 1 gram tablet 1 g PO BID #180 tabs 08/10/24 10/12/24 Rx tamsulosin 0.4 mg capsule 0.4 mg PO DAILY #90 caps 08/10/24 10/12/24 Rx boric acid 600 mg vaginal 600 mg vaginal HS 3 weeks #30 ea 10/12/24 10/12/24 Rx suppository (Azo Boric Acid) acetaminophen 500 mg tablet 1,000 mg (2 x 500 mg) PO Q8H #90 10/14/24 Rx tabs aspirin 81 mg tablet,delayed 81 mg PO BID #60 tabs 10/14/24 Rx release tramadol 25 mg tablet 25 mg PO Q4H PRN pain #10 tabs 10/14/24 Rx Past Med/Surg History Problem List Anemia (Acute) Fall (Acute) Closed hip fracture (Acute) Closed left hip fracture Veróniac glabrata infection Retention of urine, unspecified (Acute) Hydronephrosis (Acute) Pneumonia (Acute) Ground glass opacity present on imaging of lung Thyroid nodule Incontinence Seizure-like activity 02/[address] 02/2023- thyroid nodule- recommend thyroid u/s; pulmonary nodules- recommend six month CT follow up (PCP aware per records) Murmur Hypomagnesemia (Acute) Verónica cystitis Iliotibial band syndrome, right leg Trochanteric bursitis, right hip Abdominal pain Right hip pain Ovarian cyst, right Left shoulder pain Orthostatic hypotension Recurrent infections (Chronic) Ataxia Osteopenia Parkinsonism Pelvic pain DM type 2 (diabetes mellitus, type 2) Varicose veins of legs Vertigo (Acute) Memory loss (Chronic) Essential tremor (07/28/13) HTN, goal below 140/90 (Chronic 03/30/17) Vitamin D deficiency (Acute) Trigeminal neuralgia (Acute) Mixed hyperlipidemia (Chronic) Insomnia (Acute) Dysphagia (Acute) No dysphagia symptoms per 06/29/23 PCP records Anxiety (Chronic) Allergic rhinitis (Acute) Depression COPD (chronic obstructive pulmonary disease) (Chronic) IBS (irritable bowel syndrome) (Chronic) Tubular adenoma of colon Medical History Bladder ulcer E coli bacteremia Hypernatremia Acute alteration in mental status Hydronephrosis Acute pyelonephritis Diabetes Anemia Urinary tract infection Hematuria Resides in custodial facility all med hx obtained from [facility] Medical Record History of vertigo Varicose veins of both lower extremities History of trigeminal neuralgia Seizure-like activity Episode of syncope/near syncope- admitted to [facility] 02/2023 (diagnosed with UTI and acute metabolic encephalopathy) EEG 02/2023 WNL Parkinsonism Osteopenia History of orthostatic hypotension Hyperlipemia Memory loss Cognitive changes felt related to age per neurology Iliotibial band syndrome affecting right lower leg Insomnia Incontinence IBS (irritable bowel syndrome) Hypertension Essential tremor s/p bilateral DBS placement 2013 R>L hand per neuro records Diabetes mellitus, type 2 Heart murmur No significant heart valve disease per 02/2023 ECHO Depression COPD (chronic obstructive pulmonary disease) ? per [place] record, pt not on any oxygen or inhalers Bladder ulcer Following with urology Ataxia Per daughter in law- patient can usually ambulate with walker- occ will need wheelchair Anxiety History of falling Coccygeal fracture hx of Nausea Constipation Recurrent urinary tract infection Follows with ID and urology Sensorineural hearing loss (SNHL) of both ears GERD (gastroesophageal reflux disease) resolved, off PPI Surgical History Status post tubal ligation S/P sinus surgery S/P cholecystectomy S/P deep brain stimulator placement (08/20/16) Family History Father Cancer Mother Depression Hypertension Stroke Grandmother Breast cancer Mother Myocardial infarction Other Family history unknown Denies family history of Ovarian cancer Prostate cancer Colorectal cancer Social History Smoking Status: Former smoker Tobacco Type: Cigarettes Second Hand Exposure: No; Do You Dip or Chew Tobacco: No; Hx Alcohol Use: No Hx Substance Use: No Preferred Language: American Communication Ability: Impaired 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 Beliefs That Will Affect Care: None marital status: / Current Living Situation: Personal Care Facility Current Living Situation Comment: [facility] current occupational status: retired How many Children do You have: 3 Feels Safe at Home: Yes Childhood Exposure to Second-Hand Smoke: Yes Diet: regular caffeine: Yes Dental Care, Regularly: No Physical Activity Frequency: Does not Exercise Seatbelt Use: always Sunscreen Use: No Assistive Devices: Wheelchair Review of Systems Review of Systems: Unobtainable due to cognitive status Physical Exam Physical Exam: General: NAD, VS as above HEENT: MM dry Resp: normal respiratory effort, lungs clear to auscultation anteriorly CV: RRR, no murmur, Abd: normal bowel sounds, non tender, no hepatosplenomegaly Extremities: Moves all extremities, no edema Neuro: A&O x1 Skin: intact, no lesions noted Results & Data Results & Data Vital Signs (Past 12 Hours) Vital Signs Temp Pulse Resp BP Pulse Ox O2 Del Method 10/12/24 15:39 73 10/12/24 15:30 71 22 93 10/12/24 15:24 75 20 94 10/12/24 15:15 74 28 H 94 10/12/24 14:48 98.2 F 79 18 130/69 94 Room Air Laboratory Results cbc and chemsitry reviewed Diagnostic Findings head ct reviewed c-spine ct reviewed femur xray revieweed Supervising Physician Co-Signing Physician Notes During face to face encounter, I obtained a history and physical examination, discussed plan of care with patient and answered any questions. I discussed plan of care with DELLA Rico. I reviewed above note and agree with it except for the following: Patient will be admitted for a fall and a hip fracture. will consult Ortho to view options for treatment; patient appears to be wheel chaired bound. NPO after midnight. PG Care Time/CCT Total # of Minutes Spent Total Time Spent with Patient: Total time spent is greater than 50% in coordination of care (as documented) at patient's floor/unit and/or counseling patient: Coding Level of Care Code 73835 INT INP/OBS CARE 3/75MIN Diagnoses Fall W19.XXXA Encounter type: initial encounter Closed left hip fracture S72.002A Diabetes E11.9 Seizure-like activity R56.9 (1) Fall Encounter type: initial encounter Qualified Code(s): W19.XXXA - Unspecified fall, initial encounter
[2024-10-12] MEDS ORDERED: GLUCOSE 40% GEL 15 GM TUBE PO PRN (17:42)
[2024-10-12] MEDS ORDERED: DEXTROSE 50% 50 ML SYRINGE IV PRN (17:42)
[2024-10-12] MEDS ORDERED: GLUCAGON FOR INJ 1 MG VIAL SQ PRN (17:42)
[2024-10-12] MEDS ORDERED: CARBOHYDRATES FOR HYPOGLYCEMIA PO PRN (17:42)
[2024-10-12] MEDS ORDERED: GLUCOSE 10 TAB/TUBE PO PRN (17:42)
[2024-10-12] MEDS: ACETAMINOPHEN 1,000 MG/100 ML VIAL IV STA (17:44)
[2024-10-12 17:45] LABS: Appearance Urine Turbid (Clear); Bacteria Urine Automated 4+ (None Seen); Glucose Urine UA Negative (Negative); RBC Urine Automated >20 /hpf (0-2); WBC Urine Automated >50 /hpf (0-5)
[2024-10-12] MEDS: LACTATED RINGER'S 1,000 ML IV SCH (18:04)
[2024-10-12] MEDS ORDERED: ONDANSETRON INJ 2 MG/ML 2 ML VIAL IV PRN (19:14)
[2024-10-12] MEDS ORDERED: POLYETHYLENE (MIRALAX) 17 GM PACK PO PRN (19:14)
[2024-10-12] MEDS: GABAPENTIN 100 MG CAP PO SCH (21:27)
[2024-10-12] MEDS: CARBIDOPA/LEVODOPA 25/100MG TAB PO SCH (21:28)
[2024-10-12] MEDS: ROSUVASTATIN CALCIUM 20 MG TAB PO SCH (21:28)
[2024-10-12] MEDS: PRIMIDONE 50 MG TAB PO SCH (21:28)
[2024-10-12] MEDS: MIRTAZAPINE TAB 15 MG TAB PO SCH (21:29)
[2024-10-12] MEDS: FAMOTIDINE 20 MG TAB PO SCH (21:30)
[2024-10-12] MEDS: MELATONIN 3 MG TAB PO PRN (21:30)
[2024-10-12] MEDS: METHENAMINE HIPPURATE 1 GM TAB PO SCH (21:39)
[2024-10-12] MEDS: LANTUS PER UNIT CHARGE SQ SCH (21:43)
[2024-10-12] MEDS: INSULIN ASPART PER UNIT CHARGE SC SCH (21:53)
[2024-10-12] MEDS: lamoTRIgine 25 MG TAB PO SCH (22:36)
[2024-10-12] MEDS: ACETAMINOPHEN 1,000 MG/100 ML VIAL IV SCH (23:51)
[2024-10-13 06:03] LABS: Hematocrit (blood only) 34.5 % (37.0-47.0); Hemoglobin 10.9 g/dl (12.0-16.0); Mean Corpuscular Hemoglobin 27.6 pg (25.0-34.0); Mean Corpuscular Volume 87.3 fL (80.0-100.0); Platelet Count 132 K/uL (130-400); RDW Standard Deviation 43.2 fL (36.4-46.3); Red Blood Count 3.95 M/uL (4.20-5.40); White Blood Count 6.38 K/ul (4.8-10.8)
[2024-10-13 06:16] LABS: Anion Gap 5 (3-11); Blood Urea Nitrogen 11 mg/dl (6-23); Calcium 9.2 mg/dl (8.6-10.3); Carbon Dioxide 32 mmol/L (21-32); Chloride 104 mmol/L (98-107); Glucose 127 mg/dl (70-99(Fasting)); Potassium 3.6 mmol/L (3.5-5.1); Sodium 141 mmol/L (136-145)
[2024-10-13 07:29] LABS: Hemoglobin A1C 6.2 % (4.5-5.6)
--- NOTE | 2024-10-13 08:08 | Orthopedic Consultation ---
Date of Service October 13, 2024 Assessment & Plan (1) Closed left hip fracture: * Case/imaging reviewed and discussed with Dr Molina * Displaced left femoral neck fracture * Recommend OR for hemiarthroplasty, tentatively today pending room availability and medical clearance * Weight bearing status: NWB preop * NPO for OR later today * Daily treatment: Physical Therapy/ Occupational Therapy per protocol * Pain control * Disposition: TBD * Remainder care per primary team History of Present Illness Reason for Consultation: Left hip pain Requesting Physician: . Attending Physician: Tonia Sky MD Patient is a 79 y/o female with left hip pain. PMH including DM, GERD, HTN, parkinsonism, urinary retention, seizure disorder, depression and dementia and COPD. Presents to hospital with left hip pain following an unwitnessed fall. Per report patient fell from her wheelchair trying to transfer the bed. Unable to ambulate following the injury, assisted by staff following fall. Brought to ED for further evaluation. Current workup including x-ray pelvis/left hip demonstrates displaced femoral neck fracture. Admitted to hospital medicine team. Orthopedics consulted for management recommendations. At time of exam patient lying in bed, no acute distress. Clearly uncomfortable. Unable to provide meaningful history. Patient's son and [id number] in room to provide history. Patient is wheelchair-bound at baseline and only ambulates for bathroom and transfers. Allergies Allergy/AdvReac Type Severity Reaction Status Date / Time levetiracetam Allergy Intermediate Rash Verified 10/12/24 09:41 adhesive tape Allergy Mild Rash Verified 10/12/24 09:41 naproxen Allergy Mild RASH Verified 10/12/24 09:41 morphine Allergy Unknown Unknown Verified 10/12/24 09:41 sulfamethoxazole AdvReac Mild Nausea Verified 10/12/24 09:41 [From Bactrim] trimethoprim [From Bactrim] AdvReac Mild Nausea Verified 10/12/24 09:41 Home Medications Medication Instructions Recorded Confirmed Type cholecalciferol (vitamin D3) 50 2,000 unit PO QAM 09/08/18 10/12/24 History mcg (2,000 unit) tablet (Vitamin D3) cyanocobalamin (vitamin B-12) 1,000 mcg PO QAM 09/08/18 10/12/24 History 1,000 mcg tablet (Vitamin B-12) acetaminophen 325 mg tablet 650 mg PO Q4H PRN pain 1-8 05/13/21 10/12/24 History pen needle, diabetic 31 gauge x #100 ea 08/17/22 10/12/24 Rx 3/16" (Sure-Fine Pen [place]) multivitamin (Daily-Devin tablet) 1 tab PO QAM 09/03/22 10/12/24 History polyethylene glycol 3350 17 17 g PO DAILY PRN constipation 01/29/23 10/12/24 Rx gram/dose oral powder (Miralax) #119 grams lancets 30 gauge (Safety Seal #100 ea 05/27/23 10/12/24 Rx Lancets) pen needle, diabetic, safety 30 #100 ea 05/27/23 10/12/24 Rx gauge x 1/3" (Novofine Autocover) ascorbic acid (vitamin C) 500 mg 500 mg PO BID 06/29/23 10/12/24 History capsule cranberry 500 mg capsule 500 mg PO QAM 06/29/23 10/12/24 History diclofenac sodium 1 % topical gel 2 g topical QID PRN pain #100 grams 06/29/23 10/12/24 Rx blood sugar diagnostic (OneTouch #100 ea 06/30/23 10/12/24 Rx Ultra Test strips) pantoprazole 40 mg tablet,delayed 40 mg PO QAM #30 tabs 07/26/23 10/12/24 Rx release rosuvastatin 20 mg tablet 20 mg PO HS #30 tabs 07/26/23 10/12/24 Rx escitalopram oxalate 20 mg tablet 20 mg PO QAM 07/30/23 10/12/24 History famotidine 20 mg tablet 20 mg PO 2000 07/30/23 10/12/24 History carbidopa 25 mg-levodopa 100 mg 2 tab PO TID 30 days #180 tabs 08/20/23 10/12/24 Rx tablet dextromethorphan-guaifenesin 10 10 ml PO Q8 PRN Cough 08/24/23 10/12/24 History mg-100 mg/5 mL oral syrup (Tussin DM) diclofenac sodium 1 % topical gel 2 g topical QID Pain 08/24/23 10/12/24 History fluticasone propionate 50 1 spray intranasal DAILY 08/24/23 10/12/24 History mcg/actuation nasal spray,suspension gabapentin 100 mg capsule 100 mg PO BID 05/16/24 10/12/24 History haloperidol 1 mg tablet 1 mg PO Q6 PRN BPSD/AGITATION 05/16/24 10/12/24 History lamotrigine 150 mg tablet 75 mg PO AMHS 05/16/24 10/12/24 History (Lamictal) mirtazapine 15 mg tablet 15 mg PO HS 05/16/24 10/12/24 History tramadol 50 mg tablet 50 mg PO Q6H PRN pain,severe 05/16/24 10/12/24 History Abh Gel 1 applic topical Q6 PRN 07/04/24 10/12/24 History BPSD/AGITATION acetaminophen 325 mg tablet 650 mg PO Q6 PRN temp > 100 07/04/24 10/12/24 History acetaminophen 650 mg rectal 650 mg MI Q6H PRN general 07/04/24 10/12/24 History suppository discomfort benztropine 1 mg/mL injection 1 mg IM BID PRN EPS 07/04/24 10/12/24 History solution insulin aspart U-100 100 unit/mL 10 unit subcut DAILY 07/04/24 10/12/24 History subcutaneous solution insulin glargine 100 unit/mL (3 14 unit subcut HS 07/04/24 10/12/24 History mL) subcutaneous pen (Lantus Solostar U-100 Insulin) loperamide 2 mg tablet (Imodium 2 mg PO .Q 2 HOURS PRN Diarrhea 07/04/24 10/12/24 History A-D) olopatadine 0.1 % eye drops 1 drp OPB DAILY 07/04/24 10/12/24 History olopatadine 0.1 % eye drops 1 drp OPB HS PRN allergies 07/04/24 10/12/24 History ondansetron HCl 8 mg tablet 4 mg PO Q8H PRN n/v 07/04/24 10/12/24 History primidone 50 mg tablet 100 mg PO AMHS 07/04/24 10/12/24 History quetiapine 25 mg tablet 25 mg PO QAM 07/04/24 10/12/24 History quetiapine 25 mg tablet 50 mg PO QPM 07/04/24 10/12/24 History methenamine hippurate 1 gram tablet 1 g PO BID #180 tabs 08/10/24 10/12/24 Rx tamsulosin 0.4 mg capsule 0.4 mg PO DAILY #90 caps 08/10/24 10/12/24 Rx boric acid 600 mg vaginal 600 mg vaginal HS 3 weeks #30 ea 10/12/24 10/12/24 Rx suppository (Azo Boric Acid) Past Med/Surg History Problem List Anemia (Acute) Fall (Acute) Closed hip fracture (Acute) Closed left hip fracture Verónica glabrata infection Retention of urine, unspecified (Acute) Hydronephrosis (Acute) Pneumonia (Acute) Ground glass opacity present on imaging of lung Thyroid nodule Incontinence Seizure-like activity 02/[address] 02/2023- thyroid nodule- recommend thyroid u/s; pulmonary nodules- recommend six month CT follow up (PCP aware per records) Murmur Hypomagnesemia (Acute) Verónica cystitis Iliotibial band syndrome, right leg Trochanteric bursitis, right hip Abdominal pain Right hip pain Ovarian cyst, right Left shoulder pain Orthostatic hypotension Recurrent infections (Chronic) Ataxia Osteopenia Parkinsonism Pelvic pain DM type 2 (diabetes mellitus, type 2) Varicose veins of legs Vertigo (Acute) Memory loss (Chronic) Essential tremor (07/28/13) HTN, goal below 140/90 (Chronic 03/30/17) Vitamin D deficiency (Acute) Trigeminal neuralgia (Acute) Mixed hyperlipidemia (Chronic) Insomnia (Acute) Dysphagia (Acute) No dysphagia symptoms per 06/29/23 PCP records Anxiety (Chronic) Allergic rhinitis (Acute) Depression COPD (chronic obstructive pulmonary disease) (Chronic) IBS (irritable bowel syndrome) (Chronic) Tubular adenoma of colon Medical History Bladder ulcer E coli bacteremia Hypernatremia Acute alteration in mental status Hydronephrosis Acute pyelonephritis Diabetes Anemia Urinary tract infection Hematuria Resides in nursing home facility all med hx obtained from [facility] Medical Record History of vertigo Varicose veins of both lower extremities History of trigeminal neuralgia Seizure-like activity Episode of syncope/near syncope- admitted to [facility] 02/2023 (diagnosed with UTI and acute metabolic encephalopathy) EEG 02/2023 WNL Parkinsonism Osteopenia History of orthostatic hypotension Hyperlipemia Memory loss Cognitive changes felt related to age per neurology Iliotibial band syndrome affecting right lower leg Insomnia Incontinence IBS (irritable bowel syndrome) Hypertension Essential tremor s/p bilateral DBS placement 2013 R>L hand per neuro records Diabetes mellitus, type 2 Heart murmur No significant heart valve disease per 02/2023 ECHO Depression COPD (chronic obstructive pulmonary disease) ? per [place] record, pt not on any oxygen or inhalers Bladder ulcer Following with urology Ataxia Per daughter in law- patient can usually ambulate with walker- occ will need wheelchair Anxiety History of falling Coccygeal fracture hx of Nausea Constipation Recurrent urinary tract infection Follows with ID and urology Sensorineural hearing loss (SNHL) of both ears GERD (gastroesophageal reflux disease) resolved, off PPI Surgical History Status post tubal ligation S/P sinus surgery S/P cholecystectomy S/P deep brain stimulator placement (08/20/16) Family History Father Cancer Mother Depression Hypertension Stroke Grandmother Breast cancer Mother Myocardial infarction Other Family history unknown Denies family history of Ovarian cancer Prostate cancer Colorectal cancer Social History Smoking Status: Former smoker Tobacco Type: Cigarettes Second Hand Exposure: No; Do You Dip or Chew Tobacco: No; Hx Alcohol Use: No Hx Substance Use: No Preferred Language: Lao Communication Ability: Effective Fraud Representative Required: No Beliefs That Will Affect Care: None marital status: / Current Living Situation: Personal Care Facility Current Living Situation Comment: [place] [facility] current occupational status: retired How many Children do You have: 3 Other Information That Helps Us Care for You: No Feels Safe at Home: Yes Safety Concerns: Feels Safe At This Time Childhood Exposure to Second-Hand Smoke: Yes Diet: regular caffeine: Yes Dental Care, Regularly: No Physical Activity Frequency: Does not Exercise Seatbelt Use: always Sunscreen Use: No Assistive Devices: Denture - Upper and Denture - Lower Review of Systems All systems reviewed & are unremarkable except as noted in HPI & below. Physical Exam . * General: Alert and oriented, no acute distress * Constitutional: well-developed, well-nourished. * Respiratory: Normal respiratory effort, no distress * Gastrointestinal: No tenderness to palpation, no rigidity or guarding. * Skin: No rash or lesion. * Neurologic: Grossly normal * Musculoskeletal: Left lower extremity shortened externally rotated. Otherwise no obvious deformity or overlying skin changes to the left leg. TTP proximal thigh and anterior hip region. Otherwise no specific tenderness of the distal thigh, knee, lower leg. Pain with logroll, otherwise ROM hip not assessed. Spontaneous movements of the foot and toes, but does not meaningfully participate in exam. Sensation intact plantar/dorsal foot. Brisk cap refill. Results & Data Results & Data Laboratory Results . Diagnostic Findings . Cervical Spine CT 10/12/24 14:39 CT SCAN OF THE CERVICAL SPINE CLINICAL HISTORY: Fall. COMPARISON STUDY: None. TECHNIQUE: CT scan of the cervical spine is performed from the skull base to the upper thoracic spine. Images are reviewed in the axial, sagittal, and coronal planes. IV contrast was not administered for this examination. A dose lowering technique was utilized adhering to the principles of ALARA. CT DOSE: 1135.82 mGy.cm FINDINGS: Skeletal structures: There is no evidence of fracture or subluxation involving the cervical spine. Vertebral body height and alignment are maintained. The odontoid process and lateral masses are intact. The atlantoaxial articulation is preserved. The spinous processes appear intact. There is moderate multilevel disc space narrowing within the cervical spine. There is mild endplate osteo phytosis and facet arthrosis within the cervical spine. Soft tissues: The prevertebral and paraspinous soft tissues are within normal limits. A right lobe thyroid nodule is better depicted on ultrasound of December 09, 2023. Calvarium: The visualized calvarium at the skull base appears intact. Brain parenchyma: Partially visualized brain parenchyma at the skull base is within normal limits. Lung apices: Clear as visualized. IMPRESSION: No acute cervical spine fracture or subluxation. ACT 112: Negative or not required by law. Electronically signed by: Cornelius Collins M.D. 10/12/2024 4:11 PM Chest X-Ray 10/12/24 14:39 XR chest 1V portable CLINICAL HISTORY: fall COMPARISON STUDY: 07/04/2024 FINDINGS: Stable neurostimulator batteries. There is mild cardiomegaly without pulmonary vascular congestion. No consolidation or pleural effusion. No pneumothorax. Stable old fracture proximal left humerus. IMPRESSION: No acute findings. ACT 112: Negative or not required by law. Electronically signed by: Tomas Casas M.D. 10/12/2024 3:14 PM Femur X-Ray 10/12/24 14:39 XR femur LT 2V routine, XR hip LT min 2V CLINICAL HISTORY: l hip COMPARISON: None FINDINGS: There is an acute mildly displaced fracture at the left femoral neck. No other fracture or dislocation seen at the left hip or femur. IMPRESSION: Acute fracture left femoral neck. ACT 112: Negative or not required by law. Electronically signed by: Tomas Casas M.D. 10/12/2024 3:[address] 10/12/24 14:39 CT SCAN OF THE BRAIN WITHOUT IV CONTRAST CLINICAL HISTORY: Fall. COMPARISON STUDY: Head CT July 04, 2024. TECHNIQUE: Unenhanced axial CT scan of the brain was performed from the vertex to the skull base. A dose lowering technique was utilized adhering to the principles of ALARA. FINDINGS: Bilateral deep brain stimulator leads are unchanged in position and te rminate within the bilateral thalami. Artifact from the leads mildly compromises evaluation of the adjacent brain parenchyma. No acute intracranial hemorrhage, midline shift or mass effect is present. Ventricular system is stable. Basal cisterns are patent. There are no extra axial collections. There are no calvarial fractures. IMPRESSION: 1. No acute intracranial findings. No change in appearance of the brain. 2. No calvarial fractures. ACT 112: Negative or not required by law. Electronically signed by: Cornelius Collins M.D. 10/12/2024 4:08 PM Hip X-Ray 10/12/24 14:39 XR femur LT 2V routine, XR hip LT min 2V CLINICAL HISTORY: l hip COMPARISON: None FINDINGS: There is an acute mildly displaced fracture at the left femoral neck. No other fracture or dislocation seen at the left hip or femur. IMPRESSION: Acute fracture left femoral neck. ACT 112: Negative or not required by law. Electronically signed by: Tomas Casas M.D. 10/12/2024 3:14 PM PG Care Time/CCT Total # of Minutes Spent Total Time Spent with Patient: Total time spent is greater than 50% in coordination of care (as documented) at patient's floor/unit and/or counseling patient: [place] [address] IN/OBS CONSULT LVL 5,80M Patient Type New Medical Decision Making High Complexity Diagnoses Closed left hip fracture S72.002S
[2024-10-13] MEDS: ESCITALOPRAM OXALATE 20 MG TAB PO SCH (08:14)
--- NOTE | 2024-10-13 09:40 | Hospitalist Progress Note ---
"Date of Service October 13, 2024 Assessment & Plan (1) Fall: (2) Closed left hip fracture: (3) Diabetes: (4) Seizure-like activity: Plan Nadia Johnson is an 78yo female with history of DM, GERD, HTN and COPD presenting from [facility] with a fall out of her wheel chair resulting in hip fracture. Admitted for orthopedic evaluation. #Fall | hip fracture - with fall out of wheelchair. CT head c-spine without acute findings. Femur xray: acute fracture left femoral neck Consult orthopedics - plan for OR 10/[address] NPO at midnight - maintenance LR Pain control: scheduled tylenol IV and prn dilaudid - will need PO pain control post op Agressive Bowel regimen post op hypoxia after pain med - wean as able AM CBC and BMP and Vit D level #Hx of urinary retention - also with recurrent UTIs, follows with urology outpatient. After santana removal - Bladder scan q 6 hours and cath if > 300 in baldder Continue flomax and methenamine UA concerning for infection - however aferbrile, no leukocytosis and family reports mental baseline. 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 #Parkinsonism-has DBS in place (medLimundo [id number] Model [id number]) Continue carbidopa levodopa, primidone at home dosage #Diabetes A1c 6.2. Home regimen: lantus 14 units HS + aspart Continue Lantus 10u HS + SSI CF 30 CR 10 Continue Neurontin #Hyperlipidemia Continue Crestor #Mental health | Dementia Continue Seroquel 25 mg p.o. every morning, 50 mg p.o. every afternoon Continue Haldol prn Continue Lexapro continue remeron #Seizure disorder Continue Lamictal and primidone #GERD Continue Protonix Continue Pepcid Dispo: continued inpatent stay, OR Today DVT proh: SCDs family updated at bedside 10/12 & 10/13 Admission and Anticipated Discharge Date Admission Date: October 12, 2024 Subjective Seen lying in bed, reports feeling okay. When asked if she has pain - reports in her back Family at bedside - does report that she has had problems with constipation in the past Review of Systems 2 Review of Systems: All systems reviewed & are unremarkable except as noted in Subjective Physical Exam Physical Exam: General: NAD, VS as above HEENT: MM dry Resp: normal respiratory effort, lungs clear to auscultation anteriorly CV: RRR, no murmur, Abd: normal bowel sounds, non tender, no hepatosplenomegaly Extremities: Moves all extremities, left leg shortned and internally rotated, able to wiggle toes bilaterally Neuro: A&O x1 Results & Data Results & Data Vital Signs (Past 12 Hours) Vital Signs Temp Pulse Resp BP Pulse Ox O2 Del Method O2 Flow Rate 10/13/24 07:25 98.2 F 73 16 189/94 H 98 Nasal Cannula 2 10/12/24 23:54 98.4 F 74 16 172/78 H 98 Nasal Cannula 2 Laboratory Results cbc, chemistry and A1c reviewed PG Care Time/CCT Total # of Minutes Spent Total Time Spent with Patient: Total time spent is greater than 50% in coordination of care (as documented) at patient's floor/unit and/or counseling patient: Coding Level of Care Code 51453 SUB INP/OBS CARE 3/50MIN Diagnoses Fall W19.XXXA Encounter type: initial encounter Closed left hip fracture S72.002A Diabetes E11.9 Seizure-like activity R56.9 (1) Fall Encounter type: initial encounter Qualified Code(s): W19.XXXA - Unspecified fall, initial encounter"
--- NOTE | 2024-10-13 10:33 | Anesthesiology Consultation ---
Date of Service October 13, 2024 Assessment & Plan Chart Review Chart Review: Acceptable Risk for Surgery and Patient NOT seen in Pre Admission Testing Consults Requested none History Surgery Operation Date: 10/13/24 08:10 Proposed Procedures p Left Bipolar Hip Arthroplasty Anterior Approach Cemented Stem Sara - Omkar Molina, Height/Weight Weight: 77 kg Allergies Allergy/AdvReac Type Severity Reaction Status Date / Time levetiracetam Allergy Intermediate Rash Verified 10/12/24 09:41 adhesive tape Allergy Mild Rash Verified 10/12/24 09:41 naproxen Allergy Mild RASH Verified 10/12/24 09:41 morphine Allergy Unknown Unknown Verified 10/12/24 09:41 sulfamethoxazole AdvReac Mild Nausea Verified 10/12/24 09:41 [From Bactrim] trimethoprim [From Bactrim] AdvReac Mild Nausea Verified 10/12/24 09:41 Medications Home Medications Medication Instructions Recorded Confirmed Last Taken cholecalciferol (vitamin D3) 50 2,000 unit PO QAM 09/08/18 10/12/24 07/04/24 mcg (2,000 unit) tablet (Vitamin D3) cyanocobalamin (vitamin B-12) 1,000 mcg PO QAM 09/08/18 10/12/24 07/04/24 1,000 mcg tablet (Vitamin B-12) acetaminophen 325 mg tablet 650 mg PO Q4H PRN pain 1-8 05/13/21 10/12/24 06/28/24 pen needle, diabetic 31 gauge x #100 ea 08/17/22 10/12/24 Unknown 3/16" (Sure-Fine Pen Newell) multivitamin (Daily-Devin tablet) 1 tab PO QAM 09/03/22 10/12/24 07/04/24 polyethylene glycol 3350 17 17 g PO DAILY PRN constipation 01/29/23 10/12/24 Unknown gram/dose oral powder (Miralax) #119 grams lancets 30 gauge (Safety Seal #100 ea 05/27/23 10/12/24 Unknown Lancets) pen needle, diabetic, safety 30 #100 ea 05/27/23 10/12/24 Unknown gauge x 1/3" (Novofine Autocover) ascorbic acid (vitamin C) 500 mg 500 mg PO BID 06/29/23 10/12/24 07/04/24 16:30 capsule cranberry 500 mg capsule 500 mg PO QAM 06/29/23 10/12/24 07/04/24 diclofenac sodium 1 % topical gel 2 g topical QID PRN pain #100 grams 06/29/23 10/12/24 Unknown blood sugar diagnostic (OneTouch #100 ea 06/30/23 10/12/24 Unknown Ultra Test strips) pantoprazole 40 mg tablet,delayed 40 mg PO QAM #30 tabs 07/26/23 10/12/24 07/04/24 release rosuvastatin 20 mg tablet 20 mg PO HS #30 tabs 07/26/23 10/12/24 07/03/24 escitalopram oxalate 20 mg tablet 20 mg PO QAM 07/30/23 10/12/24 07/04/24 famotidine 20 mg tablet 20 mg PO 2000 07/30/23 10/12/24 07/03/24 carbidopa 25 mg-levodopa 100 mg 2 tab PO TID 30 days #180 tabs 08/20/23 10/12/24 07/04/24 14:30 tablet dextromethorphan-guaifenesin 10 10 ml PO Q8 PRN Cough 08/24/23 10/12/24 Unknown mg-100 mg/5 mL oral syrup (Florian RED) diclofenac sodium 1 % topical gel 2 g topical QID Pain 08/24/23 10/12/24 07/04/24 16:30 fluticasone propionate 50 1 spray intranasal DAILY 08/24/23 10/12/24 07/04/24 mcg/actuation nasal spray,suspension gabapentin 100 mg capsule 100 mg PO BID 05/16/24 10/12/24 07/04/24 08:30 haloperidol 1 mg tablet 1 mg PO Q6 PRN BPSD/AGITATION 05/16/24 10/12/24 06/22/24 lamotrigine 150 mg tablet 75 mg PO AMHS 05/16/24 10/12/24 07/04/24 08:30 (Lamictal) mirtazapine 15 mg tablet 15 mg PO HS 05/16/24 10/12/24 07/03/24 tramadol 50 mg tablet 50 mg PO Q6H PRN pain,severe 05/16/24 10/12/24 06/22/24 Abh Gel 1 applic topical Q6 PRN 07/04/24 10/12/24 Unknown BPSD/AGITATION acetaminophen 325 mg tablet 650 mg PO Q6 PRN temp > 100 07/04/24 10/12/24 Unknown acetaminophen 650 mg rectal 650 mg OR Q6H PRN general 07/04/24 10/12/24 07/04/24 10:12 suppository discomfort benztropine 1 mg/mL injection 1 mg IM BID PRN EPS 07/04/24 10/12/24 Unknown solution insulin aspart U-100 100 unit/mL 10 unit subcut DAILY 07/04/24 10/12/24 07/04/24 16:30 subcutaneous solution insulin glargine 100 unit/mL (3 14 unit subcut HS 07/04/24 10/12/24 07/03/24 mL) subcutaneous pen (Lantus Solostar U-100 Insulin) loperamide 2 mg tablet (Imodium 2 mg PO .Q 2 HOURS PRN Diarrhea 07/04/24 10/12/24 Unknown A-D) olopatadine 0.1 % eye drops 1 drp OPB DAILY 07/04/24 10/12/24 07/04/24 am olopatadine 0.1 % eye drops 1 drp OPB HS PRN allergies 07/04/24 10/12/24 Unknown ondansetron HCl 8 mg tablet 4 mg PO Q8H PRN n/v 07/04/24 10/12/24 Unknown primidone 50 mg tablet 100 mg PO AMHS 07/04/24 10/12/24 07/04/24 08:30 quetiapine 25 mg tablet 25 mg PO QAM 07/04/24 10/12/24 07/04/24 quetiapine 25 mg tablet 50 mg PO QPM 07/04/24 10/12/24 07/03/24 methenamine hippurate 1 gram tablet 1 g PO BID #180 tabs 08/10/24 10/12/24 Unknown tamsulosin 0.4 mg capsule 0.4 mg PO DAILY #90 caps 08/10/24 10/12/24 Unknown boric acid 600 mg vaginal 600 mg vaginal HS 3 weeks #30 ea 10/12/24 10/12/24 Unknown suppository (Azo Boric Acid) Active Medications Generic Name Dose Route Start Last Admin Trade Name Freq PRN Reason Stop Dose Admin Carbidopa/Levodopa 2 tab 10/12/24 21:00 10/13/24 08:14 Carbidopa/Levodopa 25/100mg Tab PO 11/11/24 20:59 2 tab TID ABIGAIL Administration Escitalopram Oxalate 20 mg 10/13/24 09:00 10/13/24 08:14 Escitalopram Oxalate 20 Mg Tab PO 11/12/24 08:59 20 mg QAM ABIGAIL Administration Famotidine 20 mg 10/12/24 20:00 10/12/24 21:30 Famotidine 20 Mg Tab PO 11/11/24 19:59 20 mg 2000 ABIGAIL Administration Gabapentin 100 mg 10/12/24 21:00 10/13/24 08:15 Gabapentin 100 Mg Cap PO 11/11/24 20:59 100 mg BID ABIGAIL Administration Hydromorphone HCl 0.5 mg 10/12/24 17:26 10/13/24 05:38 Hydromorphone Inj 0.5 Mg/0.5 Ml Syr IV 10/26/24 14:38 0.5 mg Q3H PRN Administration Severe Pain (Rating 7,8,9,10) Lactated Ringer's 1,000 mls @ 80 mls/hr 10/12/24 17:30 10/12/24 18:04 Lr IV 10/15/24 17:29 80 mls/hr .[id number] ABIGAIL Administration Acetaminophen 1,000 mg in 100 mls @ 400 mls/hr 10/13/24 00:00 10/13/24 10:01 Ofirmev IV 10/16/24 00:00 Infused Q8H ABIGAIL Infusion Insulin Aspart 0 units 10/12/24 21:00 10/13/24 08:07 Insulin Aspart Per Unit Charge SC 11/11/24 20:59 Not Given ACHS ABIGAIL Insulin Glargine 10 units 10/12/24 21:00 10/12/24 21:43 Lantus Per Unit Charge SQ 11/11/24 20:59 10 units HS ABIGAIL Administration Lamotrigine 75 mg 10/12/24 21:00 10/13/24 08:15 Lamotrigine 25 Mg Tab PO 11/11/24 20:59 75 mg BID ABIGAIL Administration Melatonin 3 mg 10/12/24 19:14 10/12/24 21:30 Melatonin 3 Mg Tab PO 11/11/24 19:13 3 mg HS PRN Administration Insomnia Methenamine Hippurate 1 gm 10/12/24 21:00 10/13/24 08:15 Methenamine Hippurate 1 Gm Tab PO 11/11/24 20:59 1 gm BID ABIGAIL Administration Mirtazapine 15 mg 10/12/24 21:00 10/12/24 21:29 Mirtazapine Tab 15 Mg Tab PO 11/11/24 20:59 15 mg HS ABIGAIL Administration Miscellaneous 1 each 10/13/24 00:00 10/13/24 09:58 Order Awaiting Action [Olopatadine 0.1 % Drops)] N/A 11/12/24 00:00 Not Given QS ABIGAIL Pantoprazole Sodium 40 mg 10/13/24 09:00 10/13/24 08:15 Pantoprazole 40 Mg Tab PO 11/12/24 08:59 40 mg QAM ABIGAIL Administration Primidone 100 mg 10/12/24 21:00 10/13/24 08:16 Primidone 50 Mg Tab PO 11/11/24 20:59 100 mg AMHS ABIGAIL Administration Quetiapine Fumarate 50 mg 10/12/24 21:00 10/12/24 21:29 Quetiapine Fumarate 25 Mg Tablet PO 11/11/24 20:59 50 mg QPM ABIGAIL Administration Quetiapine Fumarate 25 mg 10/13/24 09:00 10/13/24 08:16 Quetiapine Fumarate 25 Mg Tablet PO 11/12/24 08:59 25 mg QAM ABIGAIL Administration Rosuvastatin Calcium 20 mg 10/12/24 21:00 10/12/24 21:28 Rosuvastatin Calcium 20 Mg Tab PO 11/11/24 20:59 20 mg HS ABIGAIL Administration Past Medical History Medical History Bladder ulcer E coli bacteremia Hypernatremia Acute alteration in mental status Hydronephrosis Acute pyelonephritis Diabetes Anemia Urinary tract infection Hematuria Resides in assisted facility all med hx obtained from [facility] Medical Record History of vertigo Varicose veins of both lower extremities History of trigeminal neuralgia Seizure-like activity Episode of syncope/near syncope- admitted to [facility] 02/2023 (diagnosed with UTI and acute metabolic encephalopathy) EEG 02/2023 WNL Parkinsonism Osteopenia History of orthostatic hypotension Hyperlipemia Memory loss Cognitive changes felt related to age per neurology Iliotibial band syndrome affecting right lower leg Insomnia Incontinence IBS (irritable bowel syndrome) Hypertension Essential tremor s/p bilateral DBS placement 2013 R>L hand per neuro records Diabetes mellitus, type 2 Heart murmur No significant heart valve disease per 02/2023 ECHO Depression COPD (chronic obstructive pulmonary disease) ? per [place] record, pt not on any oxygen or inhalers Bladder ulcer Following with urology Ataxia Per daughter in law- patient can usually ambulate with walker- occ will need wheelchair Anxiety History of falling Coccygeal fracture hx of Nausea Constipation Recurrent urinary tract infection Follows with ID and urology Sensorineural hearing loss (SNHL) of both ears GERD (gastroesophageal reflux disease) resolved, off PPI Exercise / Class Metabolic Activity III < 4 Walking/Shop/Light housework Past Family History Family History Father Cancer Mother Depression Hypertension Stroke Grandmother Breast cancer Mother Myocardial infarction Other Family history unknown Denies family history of Ovarian cancer Prostate cancer Colorectal cancer Past Surgical History Surgical History Status post tubal ligation S/P sinus surgery S/P cholecystectomy S/P deep brain stimulator placement (08/20/16) Past Anesthesia History No Hx of Anesthesia Complications and No Family Hx of Anesthesia Complications History of PONV No Hx of PONV and No Hx of Motion Sickness Social History Smoking Status: Former smoker tobacco type: cigarettes Do You Dip or Chew Tobacco: No Hx Alcohol Use: No Hx Substance Use: No substance use type: does not use Physical Exam Vital Signs Last Vital Signs Temp 36.8 C 10/13/24 07:25 Pulse 73 10/13/24 07:25 Resp 16 10/13/24 07:25 BP 189/94 H 10/13/24 07:25 Pulse Ox 98 10/13/24 07:25 O2 Del Method Nasal Cannula 10/13/24 07:25 O2 Flow Rate 2 10/13/24 07:25 Testing Laboratory Results 10/13/24 05:41 10/13/24 05:41 PT 10.5 Seconds (9.0-12.0) 10/12/24 14:54 INR 1.0 (0.9-1.1) 10/12/24 14:54 APTT 26 Seconds (21-31) 10/12/24 14:54 Hemoglobin A1c 6.2 % (4.5-5.6) H 10/13/24 05:41 Urine Color Yellow 10/12/24 17:09 Urine Appearance Turbid (Clear) A 10/12/24 17:09 Urine pH 6.5 (4.5-7.5) 10/12/24 17:09 Ur Specific Sloan 1.014 (1.000-1.030) 10/12/24 17:09 Urine Protein 1+ (Negative) H 10/12/24 17:09 Urine Glucose (UA) Negative (Negative) 10/12/24 17:09 Urine Ketones Negative (Negative) 10/12/24 17:09 Urine Nitrite Negative (Negative) 10/12/24 17:09 Ur Leukocyte Esterase 3+ (Negative) H 10/12/24 17:09 Urine WBC (Auto) >50 /hpf (0-5) H 10/12/24 17:09 Urine RBC (Auto) >20 /hpf (0-2) H 10/12/24 17:09 U Hyaline Cast (Auto) 3-5 /lpf (0-2) H 10/12/24 17:09 U Epithel Cells (Auto) 6-10 /hpf (0-2) H 10/12/24 17:09 Urine Bacteria (Auto) 4+ (None Seen) H 10/12/24 17:09 Blood Type O Positive 10/12/24 20:04 Antibody Screen NEGATIVE 10/12/24 20:04 10/13/24 06:20 POC Glucose 124 H Electrocardiogram Date: 07/04/24 Findings: + NSR @ (@ 73;NS T wave abnl) Chest X-Ray Date: 10/12/24 Findings: + NAD and + cardiomegaly Echocardiogram Date: 08/11/20 EF: 60% LV Function: normal RWMA: + none TR-mild MAC-moderate
[2024-10-13] MEDS ORDERED: PROPOFOL IV EMULSION 10 MG/ML 20 ML VIAL IV ONE ×2 (12:34)
[2024-10-13] MEDS ORDERED: ONDANSETRON INJ 2 MG/ML 2 ML VIAL ONE (12:34)
[2024-10-13] MEDS ORDERED: ATROPINE SULFATE 0.1 MG/ML 10ML SYR IV PRN ×2 (14:38→15:49)
[2024-10-13] MEDS ORDERED: ONDANSETRON INJ 2 MG/ML 2 ML VIAL IV PRN ×2 (14:38→15:49)
--- NOTE | 2024-10-13 14:42 | History & Physical Bridge Note ---
Date of Service October 13, 2024 History & Physical Bridge Note I have examined the patient, reviewed the History & Physical and in the interval since the performance of the History & Physical I have noted the following changes of clinical significance: no changes noted
[2024-10-13] MEDS ORDERED: LIDOCAINE 2% 2 ML VIAL/AMP(20MG/ML) INFIL ONE (15:15)
[2024-10-13] MEDS ORDERED: DEXAMETHASONE SOD INJ 4 MG/ML VIAL ONE (15:16)
[2024-10-13] MEDS ORDERED: ROCURONIUM BROMIDE 10 MG/ML 5 ML VIAL IV ONE (15:18)
[2024-10-13] MEDS: ROPIVACAINE 0.5% HCL/PF 246 MG, Ketorolac (*for OR use only*) 30 MG, EPINEPHrine 30MG/3... INFIL SCH (16:29)
[2024-10-13] MEDS: TRANEXAMIC ACID / 0.7% NACL 1,000 MG/100 ML BAG IV ONE ×2 (17:08→19:41)
--- NOTE | 2024-10-13 17:54 | Operative Report ---
PG Post Operative Report Pre & Post Diagnosis Operation Date: 10/13/24 08:10 Pre-Op Diagnosis: Left Femoral Neck Fracture Post-Op Diagnosis: Left Femoral Neck Fracture I identified the patient and participated in the time-out.: Yes Procedure Operation Date: 10/13/24 08:10 Actual Procedures p Left Hip Hemiarthroplasty(Left) - Omkar Molina DO Surgeon Omkar Molina DO Fur Pointer Evaristo Balderrama PA-C Estimated Blood Loss 150 Findings Consistent with Post-Op Diagnosis Specimens Left femoral head Description of Procedure On October 13, 2024 Nadia was brought down from her hospital room to the preoperative holding area. The operation was identified and signed. She is given a preoperative antibiotic. She is taken back to the operative room and put under general anesthesia on the bed. She was then transferred to a OR table. The left hip was then brought out to a Purist leg positioner. Left hip was then prepped and draped sterile fashion. A timeout was done. The patient and the operative extremity was properly identified. An anterior approach was used. Dissection was taken down through the fascia. The tensor muscle belly was retracted laterally and the rectus was retracted anteriorly. The circumflex vessels were ligated. The capsule was exposed. The capsule was then incised and tagged for later repair. The femoral neck was then exposed. The femoral neck was then resected and removed. The femoral head was then removed. The femoral head measured to be a size 45 mm. Time was spent removing any redundant labral tissue or ligamentum from the acetabulum. The proximal femur was then exposed. Sequential broaching up to a size 11 broach was done. A standard femoral neck and a 45 mm head and shell assembly were then attached. The hip was then reduced. Fluoroscopic images showed good alignment of the hip. I was able to get good stability. The hip was then dislocated and the trials were removed. A final size 9 mm standard [employer] echo stem was then cemented into place. Once cement had hardened a 28 mm head with a 0 neck was then snapped into a 45 mm shell. The head and shell assembly were then impacted onto the femoral stem. The hip was then reduced. Final fluoroscopic images showed anatomic alignment. The capsule was then closed with #1 Vicryl suture. A 3-minute Betadine lavage was done. Surrounding soft tissues were injected with an orthopedic pain control cocktail. The fascia was then closed with #0 Prolene suture in a running fashion. Skin was closed with 2-0 Vicryl, 3-0 Vicryl, and Shahana zip line. She was then placed in a Silverlon dressing. She was then extubated and transferred back to a hospital bed. She was taken to the postanesthesia care unit in stable condition. She tolerated the procedure well. Evaristo Balderrama PA-C, was present for the entire procedure. He was critical for patient positioning, prepping, draping, retraction exposure, wound closure and application of sterile dressing. I attest to the content of the Intraoperative Record and any orders documented therein. Any exceptions are noted below.
[2024-10-13] MEDS: TRANEXAMIC ACID / 0.7% NACL 1000MG/100ML BAG IV ONE (19:31)
--- NOTE | 2024-10-13 19:36 | Anesthesiology Progress Note ---
Date of Service October 13, 2024 Anesthesia Post Procedure Vital Signs Vital Signs: Temp Pulse Pulse Pulse Resp BP BP 10/13/24 19:14 36.5 C 79 20 174/73 H 10/13/24 18:40 37.2 C 80 16 160/71 H 10/13/24 18:30 82 19 164/71 H 10/13/24 18:15 37.2 C 80 24 168/71 H 10/13/24 18:05 81 18 162/66 H 10/13/24 17:55 83 16 166/67 H 10/13/24 17:45 83 22 172/79 H 10/13/24 17:35 36.1 C L 85 18 176/77 H 10/13/24 13:52 10/13/24 13:19 36.6 C 72 20 167/67 H 10/13/24 13:09 10/13/24 10:30 10/13/24 07:25 36.8 C 73 16 189/94 H 10/12/24 23:54 36.9 C 74 16 172/78 H 10/12/24 20:55 10/12/24 20:55 36.7 C 19 181/77 H Pulse Ox O2 Del Method O2 Flow Rate 10/13/24 19:14 94 Nasal Cannula 2 10/13/24 18:40 92 Nasal Cannula 2 10/13/24 18:30 96 Nasal Cannula 2 10/13/24 18:15 94 Nasal Cannula 3 10/13/24 18:05 93 Nasal Cannula 2 10/13/24 17:55 93 Nasal Cannula 2 10/13/24 17:45 88 L Room Air 10/13/24 17:35 95 Oxymask 4 10/13/24 13:52 99 Nasal Cannula 2 10/13/24 13:19 93 Room Air 10/13/24 13:09 92 Room Air 10/13/24 10:30 Nasal Cannula 2 10/13/24 07:25 98 Nasal Cannula 2 10/12/24 23:54 98 Nasal Cannula 2 10/12/24 20:55 Nasal Cannula 2 10/12/24 20:55 94 Nasal Cannula 2 Transfer of Care Handoff Completed per policy Notes Mental Status: alert / awake / arousable Patient Amnestic to Procedure: Yes Nausea / Vomiting: adequately controlled Pain: adequately controlled Airway Patency, RR, SpO2: stable & adequate BP & HR: stable & adequate Hydration State: stable & adequate Anesthetic Complications: no major complications apparent
--- NOTE | 2024-10-13 21:08 | XRay Report ---
History: Postop Comparison: None Findings: There is no acute fracture or dislocation. Alignment is anatomic. Joint spaces are well maintained. There is no joint effusion or significant soft tissue swelling. Impression: Left hip arthroplasty appears in place. No complication. Electronically signed by Chaparro Brown 10-13-2024 9:08 PM
[2024-10-13] MEDS: ASPIRIN 81 MG ECTAB PO SCH (22:30)
[2024-10-14 06:34] LABS: Hematocrit (blood only) 30.3 % (37.0-47.0); Hemoglobin 9.7 g/dl (12.0-16.0); Mean Corpuscular Hemoglobin 28.0 pg (25.0-34.0); Mean Corpuscular Volume 87.6 fL (80.0-100.0); Platelet Count 114 K/uL (130-400); RDW Standard Deviation 43.1 fL (36.4-46.3); Red Blood Count 3.46 M/uL (4.20-5.40); White Blood Count 7.65 K/ul (4.8-10.8)
[2024-10-14 06:55] LABS: Anion Gap 5 (3-11); Blood Urea Nitrogen 14 mg/dl (6-23); Calcium 8.9 mg/dl (8.6-10.3); Carbon Dioxide 31 mmol/L (21-32); Chloride 104 mmol/L (98-107); Glucose 114 mg/dl (70-99(Fasting)); Potassium 4.0 mmol/L (3.5-5.1); Sodium 140 mmol/L (136-145)
--- NOTE | 2024-10-14 07:30 | Fluoroscopy Report ---
INTRAOPERATIVE RADIOGRAPHS CLINICAL HISTORY: Left hip arthroplasty procedure. Fluoro time: 10 seconds Ka,r: 0.85 mGy FINDINGS: 2 spot fluoroscopic views of the left hip are correlated with x-rays dated 10/12/2024. A bip olar left hip arthroplasty is in near anatomic alignment. There is no evidence of acute fracture on t he provided images. Overlying soft tissue edema and subcutaneous gas are noted. IMPRESSION: Intraoperative images from a left hip arthroplasty procedure as above. Electronically signed by: Julio C Rodriguez M.D. 10/14/2024 7:28 AM
[2024-10-14 07:33] VITALS: BP 170/74; PULSE 83; RESP 16; TEMP 99.5; O2SAT 92
--- NOTE | 2024-10-14 07:59 | Orthopedic Progress Note ---
Date of Service October 14, 2024 Assessment & Plan (1) Closed hip fracture: Overall she is doing well. She is not having much pain in the left hip. She will be seen by physical therapy today for ambulation and range of motion exercises. She is on aspirin for DVT prophylaxis. She can be weightbearing as tolerated. Full orthopedic discharge instructions were placed in the discharge summary. She is orthopedically stable for discharge when medically ready. Jose A Zuniga was seen and examined at bedside this morning. Overall she is doing fairly well. She is not having too much pain in the left hip. She was able to get some sleep last night.. Review of Systems All systems reviewed & are unremarkable except as noted in HPI & below. Physical Exam On physical exam of the left hip, the dressing is clean and dry. Her leg is out full extension. She has active motion of her ankle.. Results & Data Results & Data Laboratory Results . Diagnostic Findings Postoperative x-rays of the left hip show the prosthesis to be in anatomic alignment without any evidence of fracture complication, or loosening.. PG Care Time/CCT Total # of Minutes Spent Total Time Spent with Patient: Total time spent is greater than 50% in coordination of care (as documented) at patient's floor/unit and/or counseling patient: Coding Level of Care Code 28911 Post Operative Follow-Up Diagnoses Closed hip fracture S72.002A Encounter type: initial encounter Laterality: left (1) Closed hip fracture Encounter type: initial encounter Laterality: left Qualified Code(s): S72.002A - Fracture of unspecified part of neck of left femur, initial encounter for closed fracture
--- NOTE | 2024-10-14 12:06 | Discharge Summary ---
Discharge Summary Date of Service October 14, 2024 Principal Dx & Hospital Course #1 = Principal Diagnosis (1) Fall: (2) Closed left hip fracture: (3) Diabetes: (4) Seizure-like activity: Plan Nadia Johnson is an 78yo female with history of DM, GERD, HTN and COPD presenting from [facility] with a fall out of her wheel chair resulting in hip fracture. Admitted for orthopedic evaluation. #Fall | hip fracture with fall out of wheelchair. CT head c-spine without acute findings. Femur xray: acute fracture left femoral neck Consult orthopedics - s/p left hip repair w/ Dr. Molina 10/13, ortho signed off 10/14 w/ recommendations of ASA 81mg BID DVT prophylaxis + follow up in outpatient clinic. santana in place on dc --> can be removed at [facility]. Pain regimen of scheduled Tylenol 1000mg TID w/ tramadol prn for breakthrough. #Hx of urinary retention also with recurrent UTIs, follows with urology outpatient. After santana removal - Bladder scan q 6 hours and cath if > 300 in baldder Continue flomax and methenamine UA concerning for infection - however aferbrile, no leukocytosis and family reports mental baseline. 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 #Parkinsonism has DBS in place (medtronic [id number] Model [id number]) Continue carbidopa levodopa, primidone at home dosage #Diabetes A1c 6.2. Home regimen: lantus 14 units HS + aspart Continue Lantus 10u HS + SSI CF 30 CR 10 Continue Neurontin #Hyperlipidemia Continue Crestor #Mental health | Dementia Continue Seroquel 25 mg p.o. every morning, 50 mg p.o. every afternoon Continue Haldol prn Continue Lexapro continue remeron #Seizure disorder Continue Lamictal and primidone #GERD Continue Protonix Continue Pepcid family updated at bedside 10/14 halfway resident of [facility] - discharged back on 10/14. Admission HPI Per Admitting Provider Nadia Johnson is an 78yo female with history of DM, GERD, HTN, parkinsonism, urinary retention, seizure disorder, depression and dementia and COPD presenting from [facility] with a fall out of her wheel chair resulting in hip fracture. Fall was unwitnessed - she was in her room infront of her TV and staff things she was trying to return to bed, which she needs assistance for. Nadia is alert to self only, yells out "pain" and points to her leg and "help" repetitively. Daughter in law and son present at bedside. Report that nadia was her normal self this morning - went to urology visit with no issues. Confirm they would want surgery and everything possible done for Nadia. States she does not tolerate pain well. Discharge Exam Constitutional WD/WN, vitals as above Eyes PERRL, conjunctivae normal, anicteric sclerae Respiratory normal respiratory effort Skin no rashes, warm and dry Neurologic PERRL, EOMI, accommodation nl, no face palsy, no dysarthria Psychiatric alert, oriented to self. pleasant Discharge Plan Discharge Items Patient Disposition: Transfer Longterm Fac Reason For Visit: HIP FRACTURE Discharge Diagnosis: Hip fracture Condition on Discharge: Fair Activity: Per Instructions section Non-emergency contact: Surgeon Call non-emergency contact if: your symptoms worsen, your temperature is above 101.5, your wound has increased redness and your wound has increased drainage Follow-up/Referrals: Gennaro Costa III, MD [Primary Care Provider] - Omkar Molina DO [Physician] - Diet: Carb Consistent or DM2 Diet Texture: Pureed (blended smooth) Liquid Consistency: [place] thick Ella Attending Provider Instructions: Ms. Johnson, You were recently hospitalized for a fall resulting in a hip fracture. The orthopedic surgeon has listed instructions below. Please review them. Continue on Tylenol 1000mg q8h scheduled to help with pain. For breakthrough 25mg Tramadol has been sent in. You can use this every 4 hours as needed for severe pain. You will be on Aspirin 81mg twice daily to prevent blood clots for 6 weeks. The remainder of your medications may be resumed. Best of luck! Audrey Jaramillo Virtualization Engineer Provider Instructions: ORTHOPEDIC INSTRUCTIONS Hip Hemiarthroplasty Activity and Therapy Recommendations: 1. You were shown a series of exercises in the hospital. Do these exercises three times each day if you are able. 2. Get up and walk several times each day if you are capable. Make sure you have assistance is needed. For the first four weeks, try not to stand or walk for more than one hour at a time. If you do stand or walk for more than one hour, you will not hurt anything, but your leg will likely swell. 3. As you feel comfortable, you may change from the walker or crutches to a cane and then to independent walking if you are able. Please be safe. Medications: 1. Narcotic You will likely be sent from the hospital with the narcotic pain medication that worked best throughout your stay. 2. Aspirin You will be required to take Aspirin 81mg twice a day for 6 weeks after surgery to prevent blood clots. 3. Other medications may be given for specific circumstances. If you have any questions, please call the office at [phone]. 4. Resume previous home medications unless otherwise instructed TEDs/Elastic Stockings: The white elastic stockings help limit swelling and prevent blood clots from forming in your legs. The more you wear them, the more they work. Wear them for six weeks. Dressing Care: Leave the Silverlon dressing in place for 7 days. After 7 days you may remove the dressing. Do not remove the [place] zip closure. If the incision is not draining then you may leave the [place] zip closure open to air. If there is a little bit of drainage or if the [place] zip closure is getting stuck on your clothing then cover the incision with a dry dressing. The [place] zip closure will be removed at your 2 week follow-up appointment. Showering: You may shower with the [place] dressing in place. Do not let the shower spray hit the dressing directly. Pat the [place] dressing dry. If the dressing becomes wet underneath, then simply remove the dressing. Keep the incision dry until you are 7 days out from the day of surgery. After 7 days you may remove the [place] dressing and shower with the [place] zip closure exposed. Let soapy water run over the [place] zip closure and pat them dry. Do not scrub or soak the incision. Diet: You may resume your previous diet. Things To Watch For: 1. Drainage from the incision site that occurs more than one week after your surgery. 2. Increased redness at the incision site. 3. Fever above 102 degrees Fahrenheit. 4. Unusual chest pain or shortness of breath. 5. Call [facility] at with any of the above problems Follow-Up Visit: Follow-up with Dr. Molina's office 2-3 weeks after your day of surgery. We will remove your [place] zip line and answer any questions. If you have any additional questions or concerns, Dr Molina is usually in the office at the same time and will be available Please call the office to set up an appointment for a time that works for you. Pending Studies at Discharge: No Stand-Alone Forms: My [facility] Skilled Items Patient informed of condition?: Yes DNR: No Discharge Level of Care: Skilled Communicable Disease: No Discharge Prognosis: Improving Lines: None Urinary Catheter: Yes Medications and DC Order Prescriptions: New aspirin 81 mg Tablet,Delayed Release (Dr/Ec) 81 mg PO BID Qty: 60 0RF acetaminophen 500 mg tablet 1,000 mg PO Q8H Qty: 90 0RF tramadol 25 mg tablet 25 mg PO Q4H PRN (Reason: pain) Qty: 10 0RF Continued rosuvastatin 20 mg tablet 20 mg PO HS Qty: 30 11RF pantoprazole 40 mg tablet,delayed release (DR/EC) 40 mg PO QAM Qty: 30 11RF carbidopa-levodopa 25-100 mg tablet 2 tab PO TID 30 Days Qty: 180 6RF cranberry 500 mg capsule 500 mg PO QAM ascorbic acid (vitamin C) 500 mg capsule 500 mg PO BID diclofenac sodium 1 % gel 2 g topical QID PRN (Reason: pain) Qty: 100 4RF Rx Instructions: can apply to affected hip, knee and L shoulder polyethylene glycol 3350 [Miralax] 17 gram/dose powder 17 g PO DAILY PRN (Reason: constipation) Qty: 119 0RF Azo Boric Acid 600 mg suppository 600 mg vaginal HS 21 Days Qty: 30 0RF methenamine hippurate 1 gram tablet 1 g PO BID Qty: 180 3RF Rx Instructions: Take twice daily for UTI prevention. Hold when on antibiotic therapy. tamsulosin 0.4 mg capsule 0.4 mg PO DAILY Qty: 90 3RF gabapentin 100 mg capsule 100 mg PO BID haloperidol 1 mg tablet 1 mg PO Q6 PRN (Reason: BPSD/AGITATION) lamotrigine [Lamictal] 150 mg tablet 75 mg PO AMHS mirtazapine 15 mg tablet 15 mg PO HS cyanocobalamin (vitamin B-12) [Vitamin B-12] 1,000 mcg tablet 1,000 mcg PO QAM cholecalciferol (vitamin D3) [Vitamin D3] 2,000 unit tablet 2,000 unit PO QAM multivitamin [Daily-Devin] Tablet 1 tab PO QAM fluticasone propionate 50 mcg/actuation spray,suspension 1 spray intranasal DAILY diclofenac sodium 1 % gel 2 g TOPICAL QID Rx Instructions: apply to coccyx dextromethorphan-guaifenesin [Tussin DM] 10-100 mg/5 mL Syrup 10 ml PO Q8 PRN (Reason: Cough) famotidine 20 mg tablet 20 mg PO 1999 Rx Instructions: 20 mg orally pm at 8 pm; escitalopram oxalate 20 mg tablet 20 mg PO QAM benztropine 1 mg/mL Solution 1 mg IM BID PRN (Reason: EPS) insulin glargine [Lantus Solostar U-100 Insulin] 100 unit/mL (3 mL) insulin pen 14 unit subcut HS insulin aspart U-100 100 unit/mL solution 10 unit subcut DAILY ondansetron HCl 8 mg Tablet 4 mg PO Q8H PRN (Reason: n/v) olopatadine 0.1 % Drops 1 drp OPB DAILY Rx Instructions: separate doses by at least 6-8 hours olopatadine 0.1 % Drops 1 drp OPB HS PRN (Reason: allergies) Rx Instructions: separate doses by at least 6-8 hours primidone 50 mg tablet 100 mg PO AMHS quetiapine 25 mg tablet 50 mg PO QPM quetiapine 25 mg tablet 25 mg PO QAM loperamide [Imodium A-D] 2 mg Tablet 2 mg PO .Q 2 HOURS PRN (Reason: Diarrhea) Abh Gel 1 applic topical Q6 PRN (Reason: BPSD/AGITATION) Rx Instructions: APPLY TO POSTERIOR NECK AND U BACK FOR 14 DAYS Discontinued acetaminophen 325 mg tablet 650 mg PO Q4H MDD 3G PRN (Reason: pain 1-8) Hold Instructions: Resume on 01/11/23. resume after finishing fluconazole tramadol 50 mg tablet 50 mg PO Q6H PRN (Reason: pain,severe) acetaminophen 650 mg Suppository 650 mg UT Q6H PRN (Reason: general discomfort) Rx Instructions: start 07/04/24 take for 7 days if unable to take po acetaminophen 325 mg Tablet 650 mg PO Q6 PRN (Reason: temp > 100) No Action (DME) pen needle, diabetic [Sure-Fine Pen [place]] 31 gauge x 3/16" needle See Rx Instructions .Route Qty: 100 3RF Rx Instructions: As directed inject once daily Dx E11.9 Saftey tips (DME) Novofine Autocover 30 gauge x 1/3" needle See Rx Instructions .Route Qty: 100 4RF Rx Instructions: DAILY E11.9 (DME) lancets [Safety Seal Lancets] 30 gauge misc See Rx Instructions .Route Qty: 100 4RF Rx Instructions: TID R73.9 (DME) OneTouch Ultra Test Strip See Rx Instructions .Route Qty: 100 3RF Rx Instructions: As directed Discharge Orders: Discharge Order (Routine); Ordered 10/14/24 Ordered By: Audrey Harding Admission Data Admit Date/Time: 10/12/24 17:34 Attending Provider: Mina Rodriguez Admit Provider: [facility] [place] Primary Care Provider: Gennaro Costa III Other Providers: [place]; Bill Rider; [facility] Stay Data Consultations 10/12/24 16:48 Consult Orthopedic Surgery Routine 10/12/24 16:49 ED Decision to Admit Stat Procedures Performed Operation Date: 10/13/24 08:10 Actual Procedures p Left Hip Hemiarthroplasty Anterior Approach with Cemented Echo Stem(Left) - Omkar Molina, Diagnostic Imagining Performed 10/12/24 14:39 CT cervical spine wo con Stat CT head/brain wo con Stat 10/13/24 FL hip LT 1V Routine Pending Results Patient Have Any Pending Studies at Discharge: No Discharge Instructions Given to Patient (Per Discharging Provider) Ms. Johnson, Nito were recently hospitalized for a fall resulting in a hip fracture. The orthopedic surgeon has listed instructions below. Please review them. Continue on Tylenol 1000mg q8h scheduled to help with pain. For breakthrough 25mg Tramadol has been sent in. You can use this every 4 hours as needed for severe pain. You will be on Aspirin 81mg twice daily to prevent blood clots for 6 weeks. The remainder of your medications may be resumed. Best of luck! Audrey Harding PA-C Supervising Physician Co-Signing Physician Notes The patient was not seen by me. The chart was reviewed. Case discussed with ILYA Kumar. Agree with assessment and plan Total Time Total Time Spent Total Time Spent (In Minutes): 50 Total Time Includes: Examination of the Patient, Discharge Planning, Medication Reconciliation, Communication With Other Providers and Other Coding Level of Care Code 36432 INP/OBS DISCH >30 MIN Diagnoses Fall W19.XXXA Encounter type: initial encounter Closed left hip fracture S72.002A Diabetes E11.9 Seizure-like activity R56.9
== END 2024-10-14 17:28 | DRG 522 ==
LOC: ED 14:31 → SUATTDRO 17:34 → 3E 17:34